=== PATIENT | female | born 1960 | race Caucasian/White ===

== ENCOUNTER → 2020-02-21 | Outpatient (CLI) | payer MEDICAID, OTHER ==
--- NOTE | 2020-02-26 02:27 | ECWPNPC ---
PATIENT NAME: LUIS CANTRELL : 1960 GENDER: FEMALE VISIT DATE: 02/21/2020 DISCHARGE DATE: 02/21/20 1541 VISIT LOCKED DATE TIME: PHYSICIAN: AMEYA HI MD RESOURCE: AMEYA HI MD REASON FOR APPOINTMENT 1. CHRONIC LEFT FOOT PAIN HISTORY OF PRESENT ILLNESS NEW PATIENT CONSULT: WHEN DID YOUR PAIN FIRST START? . BRIEFLY DESCRIBE HOW YOUR PAIN STARTED? . HOW DOES YOUR PAIN CHANGE WITH TIME? . DOES YOUR PAIN AWAKEN YOU FROM SLEEP? . HOW MANY HOURS OF SLEEP DO YOU NORMALLY GET? . ANY DIAGNOSTIC TESTING? . FACILITY WHERE TESTS WERE DONE? ____. PAIN TREATMENT TREATMENT YES CANCER HAVE YOU EVER HAD ANY TYPE OF CANCER?NO NO. 59 YEAR OLD FEMALE PATIENT WITH A HISTORY OF CHRONIC LEFT FOOT PAIN. THE PATIENT DESCRIBES THE PAIN ACHING, STABBING, SHOOTING, AND NIGHTLY WITH A PAIN SCORE OF 6-9/10 DEPENDING ON PHYSICAL ACTIVITY. THE PATIENT STATES SHE HAS BEEN SUFFERING FROM HER PAIN FOR MANY YEARS AND HAS HAD 2 LEFT FOOT SURGERIES DONE IN THE PAST, WITH THE LAST SURGERY PERFORMED IN 2015, BUT HER PAIN PERSISTS. THE PATIENT IS USING GABAPENTIN 300 MG 3 TIMES DAILY AND HYDROCODONE-ACETAMINOPHEN 5-325 MG 2 TABLETS DAILY NEEDED FOR PAIN RELIEF. THE PATIENT SAYS GABAPENTIN IS NOT HELPING WITH HER PAIN, AND SHE FEELS TWO HYDROCODONE DAILY IS NOT ENOUGH CURRENTLY. THE PATIENT SAYS SHE WAS RECEIVING A HIGHER DOSAGE OF HYDROCODONE IN [place], BEFORE SHE MOVED TO [place] AT THE END OF OCTOBER 2019. THE PATIENT DENIES ABUSE OF MEDICATION. PATIENT DENIES UNEXPLAINABLE WEIGHT LOSS, FEVER, CHILLS, NEW CHANGES ON HER URINARY OR BOWEL CONTROL. PAIN SCREENING: PATIENT HAS A COMPLAINT OF ACUTE OR CHRONIC PAIN :YES FALL RISK SCREENING: SCREENING : NO FALLS IN THE PAST YEAR. EDEN INVENTORY: QUESTIONNAIRE ASSESSEDTBD SCORE VALUE CALCULATED TBD CURRENT MEDICATIONS TAKING PEPCID 20 MG TABLET 1 TAB ORALLY TWICE DAILY TAKING HYDROCODONE-ACETAMINOPHEN 5-325 MG TABLET 1 TAB ORALLY ONCE DAILY NEEDED TAKING OXYGEN 2 L/MIN VIA NC NEEDED TAKING PROAIR HFA 108 (90 BASE) MCG/ACT AEROSOL SOLUTION 2 PUFFS NEEDED INHALATION QID PRN TAKING QUETIAPINE FUMARATE ER 400 MG TABLET EXTENDED RELEASE 24 HOUR 1 TABLET IN THE EVENING ORALLY TWICE DAILY TAKING ATORVASTATIN CALCIUM 40 MG TABLET 1 TABLET ORALLY ONCE A DAY TAKING LISINOPRIL 40 MG TABLET 1 TABLET ORALLY ONCE A DAY TAKING IBUPROFEN 800 MG TABLET 1 TABLET WITH FOOD OR MILK NEEDED ORALLY TWICE DAILY NEEDED TAKING METFORMIN HCL 500 MG TABLET 1 TABLET WITH A MEAL ORALLY TWICE DAILY TAKING AMLODIPINE BESYLATE 10 MG TABLET 1 TABLET ORALLY ONCE A DAY TAKING METOPROLOL SUCCINATE 50 MG CAPSULE ER 24 HOUR SPRINKLE 1 CAPSULE ORALLY ONCE A DAY TAKING VESICARE 10 MG TABLET 1 TABLET ORALLY ONCE A DAY TAKING CLONAZEPAM 1 MG TABLET 1/2 TABLET ORALLY BID TAKING ZOLOFT 50 MG TABLET 1 TABLET ORALLY ONCE A DAY TAKING PANTOPRAZOLE SODIUM 40 MG TABLET DELAYED RELEASE 1 TABLET ORALLY ONCE A DAY TAKING GABAPENTIN 300 MG CAPSULE 1 CAPSULE ORALLY THREE TIMES DAILY TAKING CLOBETASOL PROPIONATE 0.05 % CREAM 1 APPLICATION EXTERNALLY TWICE A DAY TAKING VITAMIN D (ERGOCALCIFEROL) 1.25 MG (51419 UT) CAPSULE 1 CAPSULE ORALLY WEEKLY MEDICATION LIST REVIEWED AND RECONCILED WITH THE PATIENT PAST MEDICAL HISTORY CHRONIC LEFT FOOT PAIN ANXIETY AND DEPRESSION HTN DIABETES COPD OVER ACTIVE BLADDER WITH STRESS INCONTINENCE SEIZURES GERD HYERLIPIDEMIA SMOKER ARTHRITIS BILATERAL KNEES BILATERAL CARPAL TUNNEL SYNDROME PNEUMONIA X 2 NICOTINE DEPENDENCE, CIAGRETTES ALLERGIES PENICILLIN (FOR ALLERGIES USE ONLY): REACTION A CHILD AND TOLD NEVER TO TAKE - ALLERGY SURGICAL HISTORY ORIF LEFT FOOT AND ANKLE 06/18/2018 HYSTERECTOMY 1984 BILATERAL CARPAL TUNNEL RELEASE CHOLECYSTECTOMY LEFT FOOT SURGERY 2016 LEFT FOOT SURGERY 2013 FAMILY HISTORY FATHER: , DOESN'T KNOW MEDICAL HISTORY MOTHER: , FROM [place], DOESN'T KNOW HER MEDICAL HISTORY SON(S): HEALTHY DAUGHTER(S): HIV 2 SON(S) , 1 DAUGHTER(S) . SOCIAL HISTORY GENERAL: TOBACCO USE ARE YOU A:CURRENT SMOKER ARE YOU INTERESTED IN QUITTING?READY TO QUIT PREVIOUS QUIT ATTEMPTS?YES, WITHIN THE LAST 6 MONTHS. COUNSELED THE PATIENT ON TOBACCO USE, CESSATION [id number]/23/2020 HOW MANY CIGARETTES A DAY DO YOU SMOKE?6-10 OTHERS AT HOME: SON, SON'S FIANCEE, 2 GRANDCHILDREN. HOUSING: STAYING IN SON'S HOUSE. WAITING FOR APARTMENT TO BECOME AVAILABLE.. EDUCATION LEVEL OF EDUCATION:NOT FINISHED HIGH SCHOOL DIET: REGULAR. LANGUAGE LANGUAGES SPOKEN:GERMAN DOMESTIC VIOLENCE DO YOU FEEL SAFE IN YOUR ENVIRONMENT?YES NEW PATIENT PAIN DIARY TODAY'S VISIT 02/21/20 FROM 0-10, WHAT LEVEL IS YOUR PAIN TODAY? 7/10 RECREATIONAL DRUG USE DRUG USE?NO EXERCISE: STATES EXERCISES DAILY AND WALKS ALSO.. LEARNING BARRIERS / SPECIAL NEEDS BARRIERS TO LEARNING?YES COMMENTS STATES IS SLOW TO COMPREHEND WRITTEN INFORMATION. HEARING IMPAIRED?NO VISION IMPAIRED?YES :CORRECTIVE LENSES COGNITIVELY IMPAIRED?NO READINESS TO LEARN?YES LEARNING PREFERENCES?YES :DEMONSTRATION/VERBAL INSTRUCTION LEARNING CAPABILITIES PRESENT?YES EMOTIONAL BARRIERS?NO SPECIAL DEVICES?YES ROLLING WALKER, PORTABLE OXYGEN 2 LMIN DURING NIGHT AND NEEDED. 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 MIX NEEDED?NO PAIN CLINIC PFS, CLERGY, PUBLIC HEALTH REFERRALS PFS REFERRAL NEEDED?NO CLERGY REFERRAL NEEDED?NO PUBLIC HEALTH REFERRAL NEEDED?NO WAS THE PROVIDER NOTIFIED OF ANY PERTINENT INFO?NO HAS THE PATIENT BEEN EDUCATED REGARDING HIS/HER PLAN OF CARE?YES HAS THE PATIENT BEEN EDUCATED REGARDING PAIN, THE RISK FOR PAIN, THE IMPORTANCE OF EFFECTIVE PAIN MANAGEMENT, AND THE PAIN ASSESSMENT PROCESS?YES LATEX QUESTIONNAIRE LATEX ALLERGY : HAVE YOU EVER DEVELOPED ANY TYPE OF REACTION AFTER HANDLING LATEX PRODUCTS SUCH RUBBER GLOVES, CONDOMS, DIAPHRAGMS, BALLOONS, SOCKS, OR UNDERWEAR?NO LATEX ALLERGY : HAVE YOU EVER DEVELOPED ANY TYPE OF REACTION DURING OR AFTER DENTAL APPOINTMENT, VAGINAL/RECTAL EXAMINATION, SURGICAL PROCEDURE, OR ANY OTHER EXPOSURE?NO LATEX RISK : HAVE YOU EVER HAD ANY DIFFICULTY BREATHING OR HIVES AFTER EATING OR HANDLING ANY FRUITS, OR VEGETABLES; SUCH KIWI, BANANAS, STONE FRUITS, OR CHESTNUTSNO LATEX RISK : DO YOU HAVE A PREVIOUS PERSONAL HISTORY OF MORE THAN NINE SURGERIES, SPINA BIFIDA, OR REPEATED CATHERIZATIONS? NO LATEX RISK : ARE YOU FREQUENTLY EXPOSED TO LATEX PRODUCTS IN YOUR OCCUPATION?NO DATE ASKED : 02/21/2020 CAFFEINE CAFFEINE USE?YES HOW OFTEN AND HOW MUCH? COFFEE 2-3 CUPS PER DAY DIET PEPSI 4 12 OX CANS PER DAY ADVANCE DIRECTIVE ADVANCE DIRECTIVE DISCUSSED WITH PATIENT:YES INFORMATION PROVIDED. ORTHODOXY [id number] SPIRITISM MARITAL STATUS: .. ALCOHOL SCREENING DID YOU HAVE A DRINK CONTAINING ALCOHOL IN THE PAST YEAR?YES HOW OFTEN DID YOU HAVE A DRINK CONTAINING ALCOHOL IN THE PAST YEAR?MONTHLY OR LESS (1 POINT) HOW MANY DRINKS DID YOU HAVE ON A TYPICAL DAY WHEN YOU WERE DRINKING IN THE PAST YEAR?1 OR 2 (0 POINTS) HOW OFTEN DID YOU HAVE SIX OR MORE DRINKS ON ONE OCCASION IN THE PAST YEAR?NEVER (0 POINTS) POINTS1 INTERPRETATIONNEGATIVE OCCUPATION: DISABLED. 01/26/2020 PRE [facility] APPOINTMENT COMPLETED. HOSPITALIZATION/MAJOR DIAGNOSTIC PROCEDURE CHILDBIRTH PNEUMONIA X 2 SURGERIES REVIEW OF SYSTEMS REVIEWED BY: PROVIDER: AMEYA HI MD . CONSTITUTIONAL: ANY CHANGE IN YOUR MEDICAL CONDITION? NO . CHILLS NO . FEVER NO . INFECTION: DO YOU HAVE NEW INFECTIONS? NO . DO YOU HAVE HISTORY OF MRSA? NO . MUSCULOSKELETAL: ANY NEW PATTERNS OF PAIN OR NUMBNESS? NO . SYTEMIC LUPUS NO . GASTROENTEROLOGY: ANY NEW CHANGE IN BOWEL CONTROL? NO . BARRETTS ESOPHAGUS NO . CIRRHOSIS NO . HEPATITIS NO . LIVER FAILURE NO . ACID REFLUX YES . UNEXPLAINED WEIGHT LOSS NO . GENITOURINARY: ANY NEW CHANGE IN BLADDER CONTROL? NO - STATES HAS WEAK BLADDER . IS THERE A CHANCE YOU COULD BE ? NO . HEMATOLOGY/LYMPH: DO YOU TAKE ANY BLOOD THINNERS? (FOR EXAMPLE- COUMADIN, PLAVIX, AGGRENOX, PLATEL, PRADAXA, OR XARELTO) NO . WHEN WAS YOUR LAST DOSE? DATE: TIME: . LOW PLATELET COUNT NO . SICKLE CELL DISEASE NO . VON WILLIEBRANDS NO . FACTOR V LEIDEN NO . THALLASEMIA NO . ANEMIA NO . EASY BRUISING NO . NEUROLOGY: HAVE YOU FALLEN IN THE PAST 12 MONTHS? NO . ANY NEW EXTREMITY NUMBNESS OR WEAKNESS? NO . HEAD INJURY NO . DEMENTIA NO . CEREBRAL PALSY NO . MULTIPLE SCLEROSIS NO . DIZZINESS NO . HEADACHE YES . STROKES NO . VERTIGO NO . CARDIOLOGY: DO YOU HAVE A PACEMAKER OR DEFIBRILLATOR? NO . ANGINA NO . HEART ATTACK NO . HEART SURGERY NO . CONGESTIVE HEART FAILURE/FLUID OVERLOAD NO . CHEST PAIN NO . HIGH BLOOD PRESSURE YES . IRREGULAR HEART BEAT NO . RESPIRATORY: HAVE YOU BEEN SICK IN THE PAST WEEK? NO . FEVER NO . FLU LIKE SYMPTOMS? NO . CPAP YES - WAITING FOR MACHINE/TESTING . BYPAP NO . ASTHMA NO . EMPHYSEMA NO . CHRONIC LUNG DISEASES NO . SHORTNESS OF BREATH ON EXERTION YES . DO YOU USE ANY TYPE OF TOBACCO (SMOKE, SMOKELESS, CHEW)? YES . COUGH NO . SNORING YES . INTEGUMENTARY: DO YOU HAVE ANY RASHES OR OPEN SORES? NO . ALLERGIC/IMMUNO: ARE YOU ALLERGIC TO IV DYE? NO . ANY NEW ALLERGIES? NO . PSYCHIATRIC: DO YOU HAVE THOUGHTS OF HURTING YOURSELF OR SOMEONE ELSE? NO . ARE YOU ABUSED, NEGLECTED, OR IN AN UNSAFE ENVIRONMENT? NO . ENDOCRINOLOGY: ARE YOU DIABETIC? BORDERLINE . THYROID DISORDER NO . OTHER: DO YOU NEED ANY PRESCRIPTIONS? NO . IF YES, PLEASE LIST: ____ . ANY NEW PROBLEMS WITH YOUR MEDICATIONS? NO . WHEN DID YOU LAST EAT? ____ . WHEN DID YOU LAST DRINK? ____ . WHAT DID YOU LAST DRINK? ____ . NAME OF PERSON DRIVING YOU HOME? ____ . DO YOU HAVE ANY OTHER QUESTIONS OR CONCERNS NO . VITAL SIGNS WT 270.8 LBS, HT 72 IN, BMI 36.72 INDEX, BP 149/68 MM HG, HR 77 /MIN, RR 20 /MIN, TEMP 97.1 F, OXYGEN SAT % 94%, NA INITIALS AW 1312, REVIEWED BY: LS. EXAMINATION GENERAL EXAMINATION: PATIENT IS ALERT O X 3 AND COOPERATIVE. LUNGS CLEAR, TO AUSCULTATION. HEART: NO MURMURS OR GALLOPS; FACIAL CRANIAL NERVES ARE GROSSLY NORMAL. GOOD SYMMETRY OF FACIAL MUSCLE MOVEMENT. NORMAL VISUAL PEREIRA. ANTALGIC WALK. PATIENT USES A WALKER, OTHERWISE SHE LOSES HER BALANCE. HYPERPATHIA TO LEFT ANKLE AND TENDERNESS OVER LEFT FOOT. VERY DRY FOOT WITH TROPHIC CHANGES. PAIN DIARY AND NOTES FROM [facility] IS PRESENT IN PATIENT'S CHART. 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 CANTRELL'S PAIN MANAGEMENT CASE. I WILL REQUEST FOR A DOCTOR TO DOCTOR NARCOTIC AGREEMENT FROM THE PATIENT'S PRIMARY CARE PROVIDER TO PRESCRIBE MEDICATION FOR THE PATIENT IN THE FUTURE. I WILL ALSO LIKE TO DISCUSS THE PATIENT CASE WITH HER PROVIDER IN [place]. THE PATIENT STATES SHE WAS RECEIVING PAIN MEDICATION AND CARE BY DR. SANDI RODRIGUEZ AT [address] [place] [address]. PHONE NUMBER [phone] AND FAX [phone]. THE PATIENT SAYS HER FOOT DOCTOR WAS ALSO IN [place] AND CAN BE REACHED AT [phone]. THE PATIENT WILL FOLLOW UP WITH ME ON MARCH 10. INSTRUCTIONS WERE GIVEN, QUESTIONS WERE ANSWERED, PATIENT REPORTS UNDERSTANDING AND AGREES WITH THE PLAN. I, LAUREN HUANG, DOCUMENTED THE ABOVE INFORMATION ACTING A SCRIBE FOR DR. HI. I HAVE REVIEWED THE ABOVE DOCUMENT, WRITTEN BY LAUREN WALTER AND I VERIFY THAT IT IS ACCURATE. DEAR LISETTE SIMENTAL PA-C: THANK YOU FOR YOUR KIND REFERRAL OF LUIS CANTRELL. IF YOU WANT TO DISCUSS HER CASE WITH ME PLEASE CALL ME AT THE PAIN CENTER AT [phone]. SINCERELY, AMEYA HI MD PAIN MEDICINE . PROCEDURE CODES FA211 ESTABILISHED PATIENT [facility] CHARGE [id number] CURRENT MEDS W/DOSAGES DOCUMENTED G8730 PAIN ASSESS POS TOOL F/U PLAN DOC DISPOSITION & COMMUNICATION FOLLOW UP 3 WEEKS (REASON: RQSTING DR-TO-DR AGREE TO PCP; F/UP WITH DR Arita) ELECTRONICALLY SIGNED BY AMEYA HI MD, MD ON 02/25/2020 AT 04:45 PM EDT DISCLAIMER : THIS IS A VISIT SUMMARY EXTRACTED FROM THE [employer] CHART. IT IS NOT A COPY OF THE [employer] PROGRESS NOTE. ISABELD
== END ==
LOC: M PAIN 14:15
PROVIDERS: ATTEND Anesthesiology
DX: M79.672 Pain in left foot (principal); M79.2 Neuralgia and neuritis, unspecified; E11.9 Type 2 diabetes mellitus without complications; I10 Essential (primary) hypertension; F17.210 Nicotine dependence, cigarettes, uncomplicated; Z79.84 Long term (current) use of oral hypoglycemic drugs; Z79.891 Long term (current) use of opiate analgesic; Z79.899 Other long term (current) drug therapy; Z88.0 Allergy status to penicillin; Z98.890 Other specified postprocedural states

== ENCOUNTER → 2020-03-10 | Outpatient (CLI) | payer MEDICAID, OTHER ==
--- NOTE | 2020-03-21 03:58 | ECWPNPC ---
PATIENT NAME: LUIS CANTRELL : 1960 GENDER: FEMALE VISIT DATE: 03/10/2020 DISCHARGE DATE: 03/10/20 1000 VISIT LOCKED DATE TIME: PHYSICIAN: AMEYA HI MD RESOURCE: AMEYA HI MD REASON FOR APPOINTMENT 1. LEFT FOOT PAIN HISTORY OF PRESENT ILLNESS HISTORY OF PRESENT ILLNESS: PAIN THE PATIENT DESCRIBES THE PAIN... PERMISSION FROM PATIENT WAS RECEIVED TO DO TELEMEDICINE OFFICE VISIT VIA ZOOM. 59-YEAR-OLD FEMALE PATIENT WITH A HISTORY OF CHRONIC LEFT FOOT PAIN. THE PATIENT DESCRIBES THE PAIN THROBBING, SHOOTING AND COMES AND GOES WITH A PAIN SCORE RANGING FROM 7-9/10 DEPENDING ON PHYSICAL ACTIVITY. THE PATIENT HAS HAD SEVERAL SURGERIES IN THE PAST. THE PATIENT STATES THAT SHE NEEDS A HIGH DOSE OF THE HYDROCODONE TO HELP CONTROL HER PAIN. PATIENT DENIES UNEXPLAINABLE WEIGHT LOSS, FEVER, CHILLS, NEW CHANGES ON HER URINARY OR BOWEL CONTROL. FALL RISK SCREENING: SCREENING :NO FALLS REPORTED IN THE LAST YEAR CURRENT MEDICATIONS TAKING HYDROCODONE-ACETAMINOPHEN 5-325 MG TABLET 1 TAB ORALLY ONCE DAILY NEEDED TAKING OXYGEN 2 L/MIN VIA NC NEEDED TAKING PROAIR HFA 108 (90 BASE) MCG/ACT AEROSOL SOLUTION 2 PUFFS NEEDED INHALATION QID PRN TAKING QUETIAPINE FUMARATE ER 400 MG TABLET EXTENDED RELEASE 24 HOUR 1 TABLET IN THE EVENING ORALLY TWICE DAILY TAKING ATORVASTATIN CALCIUM 40 MG TABLET 1 TABLET ORALLY ONCE A DAY TAKING LISINOPRIL 40 MG TABLET 1 TABLET ORALLY ONCE A DAY TAKING IBUPROFEN 800 MG TABLET 1 TABLET WITH FOOD OR MILK NEEDED ORALLY TWICE DAILY NEEDED TAKING METFORMIN HCL 500 MG TABLET 1 TABLET WITH A MEAL ORALLY TWICE DAILY TAKING AMLODIPINE BESYLATE 10 MG TABLET 1 TABLET ORALLY ONCE A DAY TAKING METOPROLOL SUCCINATE 50 MG CAPSULE ER 24 HOUR SPRINKLE 1 CAPSULE ORALLY ONCE A DAY TAKING CLONAZEPAM 1 MG TABLET 1/2 TABLET ORALLY BID TAKING ZOLOFT 50 MG TABLET 1 TABLET ORALLY ONCE A DAY TAKING PANTOPRAZOLE SODIUM 40 MG TABLET DELAYED RELEASE 1 TABLET ORALLY ONCE A DAY TAKING GABAPENTIN 300 MG CAPSULE 1 CAPSULE ORALLY THREE TIMES DAILY TAKING CLOBETASOL PROPIONATE 0.05 % CREAM 1 APPLICATION EXTERNALLY TWICE A DAY TAKING VITAMIN D (ERGOCALCIFEROL) 1.25 MG (52337 UT) CAPSULE 1 CAPSULE ORALLY WEEKLY TAKING FLONASE ALLERGY RELIEF 50 MCG/ACT SUSPENSION 1 SPRAY IN EACH NOSTRIL NASALLY ONCE A DAY NOT-TAKING PEPCID 20 MG TABLET 1 TAB ORALLY TWICE DAILY NOT-TAKING VESICARE 10 MG TABLET 1 TABLET ORALLY ONCE A DAY MEDICATION LIST REVIEWED AND RECONCILED WITH THE PATIENT PAST MEDICAL HISTORY CHRONIC LEFT FOOT PAIN ANXIETY AND DEPRESSION HTN DIABETES COPD OVER ACTIVE BLADDER WITH STRESS INCONTINENCE SEIZURES GERD HYERLIPIDEMIA SMOKER ARTHRITIS BILATERAL KNEES BILATERAL CARPAL TUNNEL SYNDROME PNEUMONIA X 2 NICOTINE DEPENDENCE, CIAGRETTES ALLERGIES PENICILLIN (FOR ALLERGIES USE ONLY): REACTION A CHILD AND TOLD NEVER TO TAKE - ALLERGY SURGICAL HISTORY ORIF LEFT FOOT AND ANKLE 06/18/2018 HYSTERECTOMY 1984 BILATERAL CARPAL TUNNEL RELEASE CHOLECYSTECTOMY LEFT FOOT SURGERY 2016 LEFT FOOT SURGERY 2014 FAMILY HISTORY FATHER: , DOESN'T KNOW MEDICAL HISTORY MOTHER: , FROM [place], DOESN'T KNOW HER MEDICAL HISTORY SON(S): HEALTHY DAUGHTER(S): HIV 2 SON(S) , 1 DAUGHTER(S) . SOCIAL HISTORY GENERAL: TOBACCO USE ARE YOU A:CURRENT SMOKER ARE YOU INTERESTED IN QUITTING?READY TO QUIT PREVIOUS QUIT ATTEMPTS?YES, WITHIN THE LAST 6 MONTHS. COUNSELED THE PATIENT ON TOBACCO USE, CESSATION [id number]/10/2020 HOW MANY CIGARETTES A DAY DO YOU SMOKE?6-10 LATEX QUESTIONNAIRE LATEX ALLERGY : HAVE YOU EVER DEVELOPED ANY TYPE OF REACTION AFTER HANDLING LATEX PRODUCTS SUCH RUBBER GLOVES, CONDOMS, DIAPHRAGMS, BALLOONS, SOCKS, OR UNDERWEAR?NO LATEX ALLERGY : HAVE YOU EVER DEVELOPED ANY TYPE OF REACTION DURING OR AFTER DENTAL APPOINTMENT, VAGINAL/RECTAL EXAMINATION, SURGICAL PROCEDURE, OR ANY OTHER EXPOSURE?NO DATE ASKED : 02/21/2020 LATEX RISK : HAVE YOU EVER HAD ANY DIFFICULTY BREATHING OR HIVES AFTER EATING OR HANDLING ANY FRUITS, OR VEGETABLES; SUCH KIWI, BANANAS, STONE FRUITS, OR CHESTNUTSNO LATEX RISK : DO YOU HAVE A PREVIOUS PERSONAL HISTORY OF MORE THAN NINE SURGERIES, SPINA BIFIDA, OR REPEATED CATHERIZATIONS? NO LATEX RISK : ARE YOU FREQUENTLY EXPOSED TO LATEX PRODUCTS IN YOUR OCCUPATION?NO ALCOHOL SCREENING DID YOU HAVE A DRINK CONTAINING ALCOHOL IN THE PAST YEAR?YES HOW OFTEN DID YOU HAVE SIX OR MORE DRINKS ON ONE OCCASION IN THE PAST YEAR?NEVER (0 POINTS) HOW MANY DRINKS DID YOU HAVE ON A TYPICAL DAY WHEN YOU WERE DRINKING IN THE PAST YEAR?1 OR 2 (0 POINTS) HOW OFTEN DID YOU HAVE A DRINK CONTAINING ALCOHOL IN THE PAST YEAR?MONTHLY OR LESS (1 POINT) POINTS1 INTERPRETATIONNEGATIVE RECREATIONAL DRUG USE DRUG USE?NO CAFFEINE CAFFEINE USE?YES HOW OFTEN AND HOW MUCH? COFFEE 2-3 CUPS PER DAY DIET PEPSI 4 12 OX CANS PER DAY CATH[employer] [id number] [employer] LANGUAGES SPOKEN:CAMBODIAN EDUCATION LEVEL OF EDUCATION:NOT FINISHED HIGH SCHOOL LEARNING BARRIERS / SPECIAL NEEDS BARRIERS TO LEARNING?YES COMMENTS STATES IS SLOW TO COMPREHEND WRITTEN INFORMATION. HEARING IMPAIRED?NO VISION IMPAIRED?YES COGNITIVELY IMPAIRED?NO :CORRECTIVE LENSES READINESS TO LEARN?YES LEARNING PREFERENCES?YES :DEMONSTRATION/VERBAL INSTRUCTION LEARNING CAPABILITIES PRESENT?YES EMOTIONAL BARRIERS?NO SPECIAL DEVICES?YES ROLLING WALKER, PORTABLE OXYGEN 2 LMIN DURING NIGHT AND NEEDED. PHYTOPATHOLOGIST NEEDED?NO DOMESTIC VIOLENCE DO YOU FEEL SAFE IN YOUR ENVIRONMENT?YES OCCUPATION: DISABLED. DIET: REGULAR. EXERCISE: STATES EXERCISES DAILY AND WALKS ALSO.. MARITAL STATUS: .. OTHERS AT HOME: SON, SON'S RAIMUNDOE, 2 GRANDCHILDREN. NEW PATIENT PAIN DIARY TODAY'S VISIT 02/21/20 PATIENT DESCRIBES PAIN :IT COMES AND GOES, THROBBING, SHOOTING FROM 0-10, WHAT LEVEL IS YOUR PAIN TODAY?7 06/09 PRECIPITATING FACTORS LACK OF MEDS ALLEVIATING FACTORS MEDS IMPACT ON FUNCTION YES PAIN CLINIC PFS, CLERGY, PUBLIC HEALTH REFERRALS PFS REFERRAL NEEDED?NO CLERGY REFERRAL NEEDED?NO PUBLIC HEALTH REFERRAL NEEDED?NO WAS THE PROVIDER NOTIFIED OF ANY PERTINENT INFO?NO HAS THE PATIENT BEEN EDUCATED REGARDING HIS/HER PLAN OF CARE?YES HAS THE PATIENT BEEN EDUCATED REGARDING PAIN, THE RISK FOR PAIN, THE IMPORTANCE OF EFFECTIVE PAIN MANAGEMENT, AND THE PAIN ASSESSMENT PROCESS?YES HOUSING: STAYING IN SON'S HOUSE. WAITING FOR APARTMENT TO BECOME AVAILABLE.. ADVANCE DIRECTIVE ADVANCE DIRECTIVE DISCUSSED WITH PATIENT:YES DECLINED 01/26/2020 PRE NPC APPOINTMENT COMPLETED. HOSPITALIZATION/MAJOR DIAGNOSTIC PROCEDURE CHILDBIRTH PNEUMONIA X 2 SURGERIES REVIEW OF SYSTEMS REVIEWED BY: PROVIDER: AMEYA HI MD . CONSTITUTIONAL: ANY CHANGE IN YOUR MEDICAL CONDITION? NO . CHILLS NO . FEVER NO . INFECTION: DO YOU HAVE NEW INFECTIONS? NO . DO YOU HAVE HISTORY OF MRSA? NO . MUSCULOSKELETAL: ANY NEW PATTERNS OF PAIN OR NUMBNESS? NO . GASTROENTEROLOGY: ANY NEW CHANGE IN BOWEL CONTROL? NO . GENITOURINARY: ANY NEW CHANGE IN BLADDER CONTROL? NO . IS THERE A CHANCE YOU COULD BE ? NO . HEMATOLOGY/LYMPH: DO YOU TAKE ANY BLOOD THINNERS? (FOR EXAMPLE- COUMADIN, PLAVIX, AGGRENOX, PLATEL, PRADAXA, OR XARELTO) NO . WHEN WAS YOUR LAST DOSE? DATE: TIME: . NEUROLOGY: HAVE YOU FALLEN IN THE PAST 12 MONTHS? YES, PRIOR TO LAST VISIT . ANY NEW EXTREMITY NUMBNESS OR WEAKNESS? NO . CARDIOLOGY: DO YOU HAVE A PACEMAKER OR DEFIBRILLATOR? NO . RESPIRATORY: HAVE YOU BEEN SICK IN THE PAST WEEK? NO . FEVER NO . FLU LIKE SYMPTOMS? NO . COUGH NO . INTEGUMENTARY: DO YOU HAVE ANY RASHES OR OPEN SORES? NO . ALLERGIC/IMMUNO: ARE YOU ALLERGIC TO IV DYE? NO . ANY NEW ALLERGIES? NO . PSYCHIATRIC: DO YOU HAVE THOUGHTS OF HURTING YOURSELF OR SOMEONE ELSE? NO . ARE YOU ABUSED, NEGLECTED, OR IN AN UNSAFE ENVIRONMENT? YES, TRYING TO GET OUT OF IT, GETTING HOUSING SECURED THROUGH HUD . ENDOCRINOLOGY: ARE YOU DIABETIC? YES . OTHER: IF YES, PLEASE LIST: PCP PRESCRIBED NORCO, BUT WILL NOT PRESCRIBE ANYMORE, PAIN MNGT NEEDS TO PRESCRIBE . ANY NEW PROBLEMS WITH YOUR MEDICATIONS? NO . WHEN DID YOU LAST EAT? ____ . WHEN DID YOU LAST DRINK? ____ . WHAT DID YOU LAST DRINK? ____ . NAME OF PERSON DRIVING YOU HOME? ____ . DO YOU HAVE ANY OTHER QUESTIONS OR CONCERNS NO . EXAMINATION GENERAL EXAMINATION: TELEMEDICINE VISIT. PATIENT IS ALERT, ORIENTED TIMES 3 AND COOPERATIVE. ASSESSMENTS PAIN IN LEFT FOOT - M79.672 (PRIMARY) NEURALGIA AND NEURITIS, UNSPECIFIED - M79.2 OTHER SPECIFIED POSTPROCEDURAL STATES - Z98.890 TREATMENT PAIN IN LEFT FOOT CLINICAL NOTES: WE DISCUSSED SEVERAL ALTERNATIVES WITH MS. CANTRELL REGARDING HER TREATMENT OPTIONS AND CARE. IT WAS DISCUSSED WITH THE PATIENT THE RISK ASSOCIATED WITH USING NARCOTICS, WHICH INCLUDE RESPIRATORY DEPRESSION, CARDIAC EFFECTS, DEPENDENCE, DIZZINESS, LACK OF CONCENTRATION AND . IT WAS EXPLAINED TO THE PATIENT THAT THESE MEDICATIONS ARE HIGHLY ADDICTIVE. THEY HAVE TO KEEP IT IN A SAFE PLACE. THE PATIENT SHOULD NOT DISCUSS THE USE OF THIS MEDICATION WITH ANY RELATIVE OR FRIEND, DUE TO THE RISK OF IT GETTING STOLEN. THIS MEDICATION SHOULD NOT BE IN THE REACH OF CHILDREN. TEENAGERS ARE MORE INCLINED TO MISUSE THIS MEDICATION FOR RECREATION. IF THIS MEDICATION IS LOST OR STOLEN, WE WILL NOT REFILL THEM. THEY SHOULD NOT BE USED WITH BENZODIAZEPINES. THE PATIENT SHOULD NOT DRIVE WHILE ON THIS MEDICATION. THE PATIENT DENIES THE USE OF ANY ILLEGAL SUBSTANCES INCLUDING MARIJUANA OR COCAINE. THE PATIENT IS AWARE OF THESE RISKS AND AGREES. I WROTE THE PATIENT A PRESCRIPTION FOR HYDROCODONE 7.5/325 MG B.I.D. I DON'T HAVE A DOCTOR TO DOCTOR AGREEMENT, HOWEVER, DUE TO THE CURRENT [place] VIRUS SITUATION, I WILL PRESCRIBE THE MEDICATIONS FOR HER. THIS WILL ONLY BE TEMPORARY AND THE PATIENT IS AWARE THAT SHE WILL NEED TO PERFORM A UTOX AND PILL COUNTING WHEN SHE IS ABLE TO. I REVIEWED THE PATIENT'S ISTOP, REFERENCE NUMBER [id number]. THE PATIENT WILL FOLLOWUP WITH ME IN 3 WEEKS VIA TELEMEDICINE. THE PATIENT KNOWS TO CALL THE OFFICE IF SHE HAS ANY QUESTIONS OR CONCERNS. THE PATIENT UNDERSTANDS AND IS IN AGREEMENT WITH THE TREATMENT PLAN. I, ONOFRE SELLERS, DOCUMENTED THE ABOVE INFORMATION ACTING A SCRIBE FOR DR. HI. I HAVE REVIEWED THE ABOVE DOCUMENT, WRITTEN BY ONOFRE SELLERS, ROLL CUTTING OPERATOR, AND I VERIFY THAT IT IS ACCURATE. . OTHERS CONTINUE HYDROCODONE-ACETAMINOPHEN TABLET, 7.5-325 MG, 1 TAB, ORALLY FOR PAIN, EVERY 12 HOURS NEEDED MDD2, 30 DAYS, 60, REFILLS 0 DISPOSITION & COMMUNICATION FOLLOW UP F/UP DR. Arita VIA TELEMEDICINE IN 3 WKS (REASON: LEFT FOOT PAIN) ELECTRONICALLY SIGNED BY AMEYA HI MD, MD ON 03/20/2020 AT 04:56 PM EDT DISCLAIMER : THIS IS A VISIT SUMMARY EXTRACTED FROM THE [employer] CHART. IT IS NOT A COPY OF THE [employer] PROGRESS NOTE. DA
== END ==
LOC: M PAIN 11:30 → M TMPAIN 11:30
PROVIDERS: ATTEND Anesthesiology
DX: M79.672 Pain in left foot (principal); M79.2 Neuralgia and neuritis, unspecified; Z98.890 Other specified postprocedural states; I10 Essential (primary) hypertension; E11.9 Type 2 diabetes mellitus without complications; F17.210 Nicotine dependence, cigarettes, uncomplicated; Z79.891 Long term (current) use of opiate analgesic; Z79.899 Other long term (current) drug therapy; Z88.0 Allergy status to penicillin

== ENCOUNTER → 2020-04-04 | Outpatient (CLI) | payer MEDICAID, OTHER ==
[~2020-04-04] MED LIST: AFRI0.058; FLON27.5 NARES; PRED50TA PO
--- NOTE | 2020-04-06 01:20 | ECWPNPC ---
PATIENT NAME: LUIS CANTRELL : 1960 GENDER: FEMALE VISIT DATE: 04/04/2020 DISCHARGE DATE: 04/04/20 1537 VISIT LOCKED DATE TIME: PHYSICIAN: AMEYA HI MD RESOURCE: AMEYA HI MD REASON FOR APPOINTMENT 1. LEFT FOOT PAIN [phone] HISTORY OF PRESENT ILLNESS HISTORY OF PRESENT ILLNESS: PAIN THE PATIENT DESCRIBES THE PAIN... 60 YEAR OLD FEMALE PATIENT WITH A HISTORY OF CHRONIC FOOT PAIN. THE PATIENT DESCRIBES HER PAIN INTERMITTENT, THROBBING, SHOOTING WITH A PAIN SCORE OF 4-7/10 DEPENDING ON PHYSICAL ACTIVITY. THE PATIENT STATES SINCE STARTING TWO TABLETS DAILY OF HYDROCODONE-ACETAMINOPHEN TABLET 7.5-325 MG HAS BEEN GREATLY HELPING WITH HER PAIN. THE PATIENT SAYS SHE IS VERY HAPPY WITH THE OUTCOME SINCE STARTING THE MEDICATION HERE, AND THAT SHE WAS PREVIOUSLY RECEIVING FROM HER PROVIDER IN [place]. THE PATIENT DENIES UNEXPLAINED WEIGHT LOSS, FEVER, CHILLS, NEW CHANGES IN HER URINARY OR BOWEL CONTROL. FALL RISK SCREENING: SCREENING :NO FALLS REPORTED IN THE LAST YEAR CURRENT MEDICATIONS TAKING OXYGEN 2 L/MIN VIA NC NEEDED TAKING PROAIR HFA 108 (90 BASE) MCG/ACT AEROSOL SOLUTION 2 PUFFS NEEDED INHALATION QID PRN TAKING QUETIAPINE FUMARATE ER 400 MG TABLET EXTENDED RELEASE 24 HOUR 1 TABLET IN THE EVENING ORALLY TWICE DAILY TAKING ATORVASTATIN CALCIUM 40 MG TABLET 1 TABLET ORALLY ONCE A DAY TAKING LISINOPRIL 40 MG TABLET 1 TABLET ORALLY ONCE A DAY TAKING IBUPROFEN 800 MG TABLET 1 TABLET WITH FOOD OR MILK NEEDED ORALLY TWICE DAILY NEEDED TAKING METFORMIN HCL 500 MG TABLET 1 TABLET WITH A MEAL ORALLY TWICE DAILY TAKING AMLODIPINE BESYLATE 10 MG TABLET 1 TABLET ORALLY ONCE A DAY TAKING METOPROLOL SUCCINATE 50 MG CAPSULE ER 24 HOUR SPRINKLE 1 CAPSULE ORALLY ONCE A DAY TAKING CLONAZEPAM 1 MG TABLET 1/2 TABLET ORALLY BID TAKING ZOLOFT 50 MG TABLET 1 TABLET ORALLY ONCE A DAY TAKING PANTOPRAZOLE SODIUM 40 MG TABLET DELAYED RELEASE 1 TABLET ORALLY ONCE A DAY TAKING GABAPENTIN 300 MG CAPSULE 1 CAPSULE ORALLY THREE TIMES DAILY TAKING CLOBETASOL PROPIONATE 0.05 % CREAM 1 APPLICATION EXTERNALLY TWICE A DAY TAKING VITAMIN D (ERGOCALCIFEROL) 1.25 MG (60488 UT) CAPSULE 1 CAPSULE ORALLY WEEKLY TAKING FLONASE ALLERGY RELIEF 50 MCG/ACT SUSPENSION 1 SPRAY IN EACH NOSTRIL NASALLY ONCE A DAY TAKING HYDROCODONE-ACETAMINOPHEN 7.5-325 MG TABLET 1 TAB ORALLY FOR PAIN EVERY 12 HOURS NEEDED MDD2 NOT-TAKING PEPCID 20 MG TABLET 1 TAB ORALLY TWICE DAILY NOT-TAKING VESICARE 10 MG TABLET 1 TABLET ORALLY ONCE A DAY MEDICATION LIST REVIEWED AND RECONCILED WITH THE PATIENT PAST MEDICAL HISTORY CHRONIC LEFT FOOT PAIN ANXIETY AND DEPRESSION HTN DIABETES COPD OVER ACTIVE BLADDER WITH STRESS INCONTINENCE SEIZURES GERD HYERLIPIDEMIA SMOKER ARTHRITIS BILATERAL KNEES BILATERAL CARPAL TUNNEL SYNDROME PNEUMONIA X 2 NICOTINE DEPENDENCE, CIAGRETTES ALLERGIES PENICILLIN (FOR ALLERGIES USE ONLY): REACTION A CHILD AND TOLD NEVER TO TAKE - ALLERGY SURGICAL HISTORY ORIF LEFT FOOT AND ANKLE 06/18/2018 HYSTERECTOMY 1984 BILATERAL CARPAL TUNNEL RELEASE CHOLECYSTECTOMY LEFT FOOT SURGERY 2016 LEFT FOOT SURGERY 2014 FAMILY HISTORY FATHER: , DOESN'T KNOW MEDICAL HISTORY MOTHER: , FROM [place], DOESN'T KNOW HER MEDICAL HISTORY SON(S): HEALTHY DAUGHTER(S): HIV 2 SON(S) , 1 DAUGHTER(S) . SOCIAL HISTORY GENERAL: TOBACCO USE ARE YOU A:CURRENT SMOKER ARE YOU INTERESTED IN QUITTING?READY TO QUIT PREVIOUS QUIT ATTEMPTS?YES, WITHIN THE LAST 6 MONTHS. COUNSELED THE PATIENT ON TOBACCO USE, CESSATION [id number]/05/2020 HOW MANY CIGARETTES A DAY DO YOU SMOKE?6-10 LATEX QUESTIONNAIRE LATEX ALLERGY : HAVE YOU EVER DEVELOPED ANY TYPE OF REACTION AFTER HANDLING LATEX PRODUCTS SUCH RUBBER GLOVES, CONDOMS, DIAPHRAGMS, BALLOONS, SOCKS, OR UNDERWEAR?NO LATEX ALLERGY : HAVE YOU EVER DEVELOPED ANY TYPE OF REACTION DURING OR AFTER DENTAL APPOINTMENT, VAGINAL/RECTAL EXAMINATION, SURGICAL PROCEDURE, OR ANY OTHER EXPOSURE?NO DATE ASKED : 02/21/2020 LATEX RISK : HAVE YOU EVER HAD ANY DIFFICULTY BREATHING OR HIVES AFTER EATING OR HANDLING ANY FRUITS, OR VEGETABLES; SUCH KIWI, BANANAS, STONE FRUITS, OR CHESTNUTSNO LATEX RISK : DO YOU HAVE A PREVIOUS PERSONAL HISTORY OF MORE THAN NINE SURGERIES, SPINA BIFIDA, OR REPEATED CATHERIZATIONS? NO LATEX RISK : ARE YOU FREQUENTLY EXPOSED TO LATEX PRODUCTS IN YOUR OCCUPATION?NO ALCOHOL SCREENING DID YOU HAVE A DRINK CONTAINING ALCOHOL IN THE PAST YEAR?YES HOW OFTEN DID YOU HAVE SIX OR MORE DRINKS ON ONE OCCASION IN THE PAST YEAR?NEVER (0 POINTS) HOW MANY DRINKS DID YOU HAVE ON A TYPICAL DAY WHEN YOU WERE DRINKING IN THE PAST YEAR?1 OR 2 (0 POINTS) HOW OFTEN DID YOU HAVE A DRINK CONTAINING ALCOHOL IN THE PAST YEAR?MONTHLY OR LESS (1 POINT) POINTS1 INTERPRETATIONNEGATIVE RECREATIONAL DRUG USE DRUG USE?NO CAFFEINE CAFFEINE USE?YES HOW OFTEN AND HOW MUCH? COFFEE 2-3 CUPS PER DAY DIET PEPSI 4 12 OX CANS PER DAY CONGREGATION [id number] [employer] L[employer]AGE LANGUAGES SPOKEN:BENGALI EDUCATION LEVEL OF EDUCATION:NOT FINISHED HIGH SCHOOL LEARNING BARRIERS / SPECIAL NEEDS BARRIERS TO LEARNING?YES COMMENTS STATES IS SLOW TO COMPREHEND WRITTEN INFORMATION. HEARING IMPAIRED?NO VISION IMPAIRED?YES COGNITIVELY IMPAIRED?NO :CORRECTIVE LENSES READINESS TO LEARN?YES LEARNING PREFERENCES?YES :DEMONSTRATION/VERBAL INSTRUCTION LEARNING CAPABILITIES PRESENT?YES EMOTIONAL BARRIERS?NO SPECIAL DEVICES?YES ROLLING WALKER, PORTABLE OXYGEN 2 LMIN DURING NIGHT AND NEEDED. JORDAN MAN NEEDED?NO DOMESTIC VIOLENCE DO YOU FEEL SAFE IN YOUR ENVIRONMENT?YES OCCUPATION: DISABLED. DIET: REGULAR. EXERCISE: STATES EXERCISES DAILY AND WALKS ALSO.. MARITAL STATUS: .. OTHERS AT HOME: SON, SON'S FIANCEE, 2 GRANDCHILDREN. NEW PATIENT PAIN DIARY TODAY'S VISIT 04/04/20 PATIENT DESCRIBES PAIN :IT COMES AND GOES, THROBBING, SHOOTING FROM 0-10, WHAT LEVEL IS YOUR PAIN TODAY?6 PRECIPITATING FACTORS LACK OF MEDS ALLEVIATING FACTORS MEDS IMPACT ON FUNCTION YES PAIN CLINIC PFS, CLERGY, PUBLIC HEALTH REFERRALS PFS REFERRAL NEEDED?NO CLERGY REFERRAL NEEDED?NO PUBLIC HEALTH REFERRAL NEEDED?NO WAS THE PROVIDER NOTIFIED OF ANY PERTINENT INFO?NO HAS THE PATIENT BEEN EDUCATED REGARDING HIS/HER PLAN OF CARE?YES HAS THE PATIENT BEEN EDUCATED REGARDING PAIN, THE RISK FOR PAIN, THE IMPORTANCE OF EFFECTIVE PAIN MANAGEMENT, AND THE PAIN ASSESSMENT PROCESS?YES HOUSING: STAYING IN SON'S HOUSE. WAITING FOR APARTMENT TO BECOME AVAILABLE.. ADVANCE DIRECTIVE ADVANCE DIRECTIVE DISCUSSED WITH PATIENT:YES DECLINED 01/26/2020 PRE NPC APPOINTMENT COMPLETED. HOSPITALIZATION/MAJOR DIAGNOSTIC PROCEDURE CHILDBIRTH PNEUMONIA X 2 SURGERIES REVIEW OF SYSTEMS REVIEWED BY: PROVIDER: AMEYA HI MD . CONSTITUTIONAL: ANY CHANGE IN YOUR MEDICAL CONDITION? NO . CHILLS NO . FEVER NO . INFECTION: DO YOU HAVE NEW INFECTIONS? NO . DO YOU HAVE HISTORY OF MRSA? NO . MUSCULOSKELETAL: ANY NEW PATTERNS OF PAIN OR NUMBNESS? NO . GASTROENTEROLOGY: ANY NEW CHANGE IN BOWEL CONTROL? NO . GENITOURINARY: ANY NEW CHANGE IN BLADDER CONTROL? NO . IS THERE A CHANCE YOU COULD BE ? NO . HEMATOLOGY/LYMPH: DO YOU TAKE ANY BLOOD THINNERS? (FOR EXAMPLE- COUMADIN, PLAVIX, AGGRENOX, PLATEL, PRADAXA, OR XARELTO) NO . WHEN WAS YOUR LAST DOSE? DATE: TIME: . NEUROLOGY: HAVE YOU FALLEN IN THE PAST 12 MONTHS? YES, PRIOR TO LAST VISIT . ANY NEW EXTREMITY NUMBNESS OR WEAKNESS? NO . CARDIOLOGY: DO YOU HAVE A PACEMAKER OR DEFIBRILLATOR? NO . RESPIRATORY: HAVE YOU BEEN SICK IN THE PAST WEEK? NO . FEVER NO . FLU LIKE SYMPTOMS? NO . COUGH NO . INTEGUMENTARY: DO YOU HAVE ANY RASHES OR OPEN SORES? NO . ALLERGIC/IMMUNO: ARE YOU ALLERGIC TO IV DYE? NO . ANY NEW ALLERGIES? NO . PSYCHIATRIC: DO YOU HAVE THOUGHTS OF HURTING YOURSELF OR SOMEONE ELSE? NO . ARE YOU ABUSED, NEGLECTED, OR IN AN UNSAFE ENVIRONMENT? NO . ENDOCRINOLOGY: ARE YOU DIABETIC? YES . OTHER: DO YOU NEED ANY PRESCRIPTIONS? YES, KLONOPIN, NORCO . IF YES, PLEASE LIST: ____ . ANY NEW PROBLEMS WITH YOUR MEDICATIONS? NO . WHEN DID YOU LAST EAT? ____ . WHEN DID YOU LAST DRINK? ____ . WHAT DID YOU LAST DRINK? ____ . NAME OF PERSON DRIVING YOU HOME? ____ . DO YOU HAVE ANY OTHER QUESTIONS OR CONCERNS NO . EXAMINATION GENERAL EXAMINATION: TELEMEDICINE USING ZOOM APPLICATION. PATIENT IS ALERT O X 3 AND COOPERATIVE. 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 CANTRELL'S PAIN MANAGEMENT CASE. THE PATIENT WILL CONTINUE WITH HYDROCODONE-ACETAMINOPHEN TABLET, 7.5-325 MG, WHICH I REFILLED FOR HER AT TODAY'S VISIT. ISTOP # [id number] WAS REVIEWED. I DISCUSSED THE RISKS ASSOCIATED WITH THE USE OF OPIOIDS INCLUDING THE POSSIBLE DEVELOPMENT OF ADDICTION OR TOLERANCE AND THE PATIENT VERBALIZED UNDERSTANDING. THE PATIENT REPORTS THE USE OF THE PRESCRIBED MEDICATION IS ONLY FOR PAIN CONTROL AND THAT NO MISUSE OF THE MEDICATION WILL OCCUR. THE PATIENT DENIES THE USE OF ANY ILLEGAL SUBSTANCES INCLUDING MARIHUANA. THE PATIENT REPORTS UNDERSTANDING AND FOLLOWING THE AGREEMENTS OF THE NARCOTIC AGREEMENT SIGNED WITH OUR PRACTICE. THE PATIENT WILL FOLLOW UP WITH THE NURSE PRACTITIONER IN 3 WEEKS A PHYSICAL VISIT. I ADVISED THE PATIENT TO BRING HER MEDICATION TO HER NEXT VISIT HERE. THE PLAN IS TO DO ANOTHER NARCOTIC AGREEMENT AND URINE TOXICOLOGY AT HER NEXT VISIT. I WOULD LIKE TO DISCUSS THE PATIENT CASE WITH HER PROVIDER IN [place], DR. SANDI RODRIGUEZ AT [address] [place] [address]. PHONE NUMBER [phone] AND FAX [phone]. THE PATIENT SAYS HER FOOT DOCTOR WAS ALSO IN [place] AND CAN BE REACHED AT [phone]. INSTRUCTIONS WERE GIVEN, QUESTIONS WERE ANSWERED, PATIENT REPORTS UNDERSTANDING AND AGREES WITH THE PLAN. I, LAUREN HUANG, DOCUMENTED THE ABOVE INFORMATION ACTING A SCRIBE FOR DR. HI. I HAVE REVIEWED THE ABOVE DOCUMENT, WRITTEN BY LAUREN HUANG SCRIBArleth AND I VERIFY THAT IT IS ACCURATE. . OTHERS CONTINUE HYDROCODONE-ACETAMINOPHEN TABLET, 7.5-325 MG, 1 TAB, ORALLY FOR PAIN, EVERY 12 HOURS NEEDED MDD2, 30 DAYS, 60, REFILLS 0 DISPOSITION & COMMUNICATION FOLLOW UP 3 WEEKS (REASON: F/UP WITH DR. Arita (PHYSICAL VISIT)) ELECTRONICALLY SIGNED BY AMEYA HI MD, MD ON 04/05/2020 AT 10:51 AM EDT DISCLAIMER : THIS IS A VISIT SUMMARY EXTRACTED FROM THE [facility] CHART. IT IS NOT A COPY OF THE [email or web address] PROGRESS NOTE. MTDD
== END ==
LOC: M PAIN 14:15 → M TMPAIN 14:15
PROVIDERS: ATTEND Anesthesiology
DX: M79.672 Pain in left foot (principal); M79.2 Neuralgia and neuritis, unspecified; I10 Essential (primary) hypertension; J44.9 Chronic obstructive pulmonary disease, unspecified; F17.210 Nicotine dependence, cigarettes, uncomplicated; Z79.891 Long term (current) use of opiate analgesic; Z79.899 Other long term (current) drug therapy; Z88.0 Allergy status to penicillin

== ENCOUNTER → 2020-04-11 | Outpatient (CLI) | payer OTHER ==
--- NOTE | 2020-04-12 04:20 | REP ---
Clinical: Lung screening. History smoking. Comparison: None Technique: Axial low-dose noncontrast images from the thoracic inlet to the upper abdomen using lung screening technique. Findings: The lung mercado are well-aerated. 4 mm noncalcified nodule in the left apex (image 12) noted along with minimal basilar presumed linear scarring. No consolidation or mass lesion. No pleural effusion/reaction or pneumothorax. Tracheobronchial tree is patent. Mediastinum demonstrates mild atherosclerotic changes of the coronary arteries without cardiomegaly. Impression: Lung-RADS category III. No prior examinations are available for comparison. 4 mm noncalcified nodule in the left apex. Management recommendations include 6-month low-dose CT follow-up examination. Electronically Signed by Braulio Nino MD 04/12/2020 04:12 A
== END ==
LOC: M RAD 11:27
PROVIDERS: ATTEND Nurse Practitioner Adult Health
DX: F17.210 Nicotine dependence, cigarettes, uncomplicated (principal); Z12.2 Encounter for screening for malignant neoplasm of respiratory organs

== ENCOUNTER 2020-04-25 12:46 | Outpatient (RCR) | payer OTHER | END 2020-04-30 | LOC: M PT 12:46 | PROVIDERS: ATTEND Physician Assistant | DX: Z51.89 Encounter for other specified aftercare (principal); M79.672 Pain in left foot ==

== ENCOUNTER → 2020-04-25 | Outpatient (CLI) | payer OTHER, MEDICAID ==
--- NOTE | 2020-04-29 02:33 | ECWPNPC ---
PATIENT NAME: LUIS CANTRELL : 1960 GENDER: FEMALE VISIT DATE: 04/25/2020 DISCHARGE DATE: 04/25/20 1528 VISIT LOCKED DATE TIME: PHYSICIAN: AMEYA HI MD RESOURCE: AMEYA HI MD REASON FOR APPOINTMENT 1. LEFT FOOT PAIN HISTORY OF PRESENT ILLNESS HISTORY OF PRESENT ILLNESS: PAIN THE PATIENT DESCRIBES THE PAIN... 60 YEAR OLD FEMALE PATIENT WITH A HISTORY OF CHRONIC LEFT FOOT PAIN. THE PATIENT DESCRIBES HER PAIN IT COMES AND GOES, THROBBING, SHOOTING WITH A PAIN SCORE OF 5-8/10 DEPENDING ON PHYSICAL ACTIVITY. THE PATIENT HAD LEFT FOOT SURGERY IN 2013 AND 2015, BUT HER PAIN PERSISTS. THE PATIENT IS CURRENTLY GOING TO PHYSICAL THERAPY EVERY FRIDAY, WHICH IS HELPING WITH HER PAIN. THE PATIENT IS USING TWO TABLETS DAILY OF HYDROCODONE-ACETAMINOPHEN TABLET 7.5-325 MG THAT IS HELPING VERY WELL WITH HER PAIN. THE PATIENT DENIES ABUSE OF MEDICATION OR USE OF ILLEGAL SUBSTANCE AND IS BEING COMPLIANT WITH HER MEDICATION. THE PATIENT DENIES UNEXPLAINED WEIGHT LOSS, FEVER, CHILLS, NEW CHANGES IN HER URINARY OR BOWEL CONTROL. FALL RISK SCREENING: SCREENING :NO FALLS REPORTED IN THE LAST YEAR CURRENT MEDICATIONS TAKING OXYGEN 2 L/MIN VIA NC NEEDED TAKING PROAIR HFA 108 (90 BASE) MCG/ACT AEROSOL SOLUTION 2 PUFFS NEEDED INHALATION QID PRN TAKING QUETIAPINE FUMARATE ER 400 MG TABLET EXTENDED RELEASE 24 HOUR 1 TABLET IN THE EVENING ORALLY TWICE DAILY TAKING ATORVASTATIN CALCIUM 40 MG TABLET 1 TABLET ORALLY ONCE A DAY TAKING LISINOPRIL 40 MG TABLET 1 TABLET ORALLY ONCE A DAY TAKING METFORMIN HCL 500 MG TABLET 1 TABLET WITH A MEAL ORALLY TWICE DAILY TAKING AMLODIPINE BESYLATE 10 MG TABLET 1 TABLET ORALLY ONCE A DAY TAKING METOPROLOL SUCCINATE 50 MG CAPSULE ER 24 HOUR SPRINKLE 1 CAPSULE ORALLY ONCE A DAY TAKING CLONAZEPAM 1 MG TABLET 1/2 TABLET ORALLY BID TAKING ZOLOFT 50 MG TABLET 1 TABLET ORALLY ONCE A DAY TAKING PANTOPRAZOLE SODIUM 40 MG TABLET DELAYED RELEASE 1 TABLET ORALLY ONCE A DAY TAKING GABAPENTIN 300 MG CAPSULE 1 CAPSULE ORALLY THREE TIMES DAILY TAKING CLOBETASOL PROPIONATE 0.05 % CREAM 1 APPLICATION EXTERNALLY TWICE A DAY TAKING VITAMIN D (ERGOCALCIFEROL) 1.25 MG (88947 UT) CAPSULE 1 CAPSULE ORALLY WEEKLY TAKING FLONASE ALLERGY RELIEF 50 MCG/ACT SUSPENSION 1 SPRAY IN EACH NOSTRIL NASALLY ONCE A DAY TAKING HYDROCODONE-ACETAMINOPHEN 7.5-325 MG TABLET 1 TAB ORALLY FOR PAIN EVERY 12 HOURS NEEDED MDD2 NOT-TAKING PEPCID 20 MG TABLET 1 TAB ORALLY TWICE DAILY NOT-TAKING VESICARE 10 MG TABLET 1 TABLET ORALLY ONCE A DAY NOT-TAKING IBUPROFEN 800 MG TABLET 1 TABLET WITH FOOD OR MILK NEEDED ORALLY TWICE DAILY NEEDED PAST MEDICAL HISTORY CHRONIC LEFT FOOT PAIN ANXIETY AND DEPRESSION HTN DIABETES COPD OVER ACTIVE BLADDER WITH STRESS INCONTINENCE SEIZURES GERD HYERLIPIDEMIA SMOKER ARTHRITIS BILATERAL KNEES BILATERAL CARPAL TUNNEL SYNDROME PNEUMONIA X 2 NICOTINE DEPENDENCE, CIAGRETTES ALLERGIES PENICILLIN (FOR ALLERGIES USE ONLY): REACTION A CHILD AND TOLD NEVER TO TAKE - ALLERGY SURGICAL HISTORY ORIF LEFT FOOT AND ANKLE 06/18/2018 HYSTERECTOMY 1984 BILATERAL CARPAL TUNNEL RELEASE CHOLECYSTECTOMY LEFT FOOT SURGERY 2016 LEFT FOOT SURGERY 2013 FAMILY HISTORY FATHER: , DOESN'T KNOW MEDICAL HISTORY MOTHER: , FROM [place], DOESN'T KNOW HER MEDICAL HISTORY SON(S): HEALTHY DAUGHTER(S): HIV 2 SON(S) , 1 DAUGHTER(S) . SOCIAL HISTORY GENERAL: TOBACCO USE ARE YOU A:CURRENT SMOKER ARE YOU INTERESTED IN QUITTING?READY TO QUIT PREVIOUS QUIT ATTEMPTS?YES, WITHIN THE LAST 6 MONTHS. COUNSELED THE PATIENT ON TOBACCO USE, CESSATION [id number]/22/2020 HOW MANY CIGARETTES A DAY DO YOU SMOKE?6-10 LATEX QUESTIONNAIRE DATE ASKED : 04/21/2020 ALCOHOL SCREENING DID YOU HAVE A DRINK CONTAINING ALCOHOL IN THE PAST YEAR?YES HOW OFTEN DID YOU HAVE SIX OR MORE DRINKS ON ONE OCCASION IN THE PAST YEAR?NEVER (0 POINTS) HOW MANY DRINKS DID YOU HAVE ON A TYPICAL DAY WHEN YOU WERE DRINKING IN THE PAST YEAR?1 OR 2 (0 POINTS) HOW OFTEN DID YOU HAVE A DRINK CONTAINING ALCOHOL IN THE PAST YEAR?MONTHLY OR LESS (1 POINT) POINTS1 INTERPRETATIONNEGATIVE RECREATIONAL DRUG USE DRUG USE?NO CAFFEINE CAFFEINE USE?YES HOW OFTEN AND HOW MUCH? COFFEE 2-3 CUPS PER DAY DIET PEPSI 4 12 OX CANS PER DAY AMISH [id number] [employer] LANGUAGE LANGUAGES SPOKEN:PANAMANIAN EDUCATION LEVEL OF EDUCATION:NOT FINISHED HIGH SCHOOL LEARNING BARRIERS / SPECIAL NEEDS BARRIERS TO LEARNING?YES COMMENTS STATES IS SLOW TO COMPREHEND WRITTEN INFORMATION. HEARING IMPAIRED?NO VISION IMPAIRED?YES COGNITIVELY IMPAIRED?NO :CORRECTIVE LENSES READINESS TO LEARN?YES LEARNING PREFERENCES?YES :DEMONSTRATION/VERBAL INSTRUCTION LEARNING CAPABILITIES PRESENT?YES EMOTIONAL BARRIERS?NO SPECIAL DEVICES?YES ROLLING WALKER, PORTABLE OXYGEN 2 LMIN DURING NIGHT AND NEEDED. JEWELRY COATER NEEDED?NO DOMESTIC VIOLENCE DO YOU FEEL SAFE IN YOUR ENVIRONMENT?YES OCCUPATION: DISABLED. DIET: REGULAR. EXERCISE: STATES EXERCISES DAILY AND WALKS ALSO.. MARITAL STATUS: .. OTHERS AT HOME: SON, SON'S FIANCEE, 2 GRANDCHILDREN. NEW PATIENT PAIN DIARY TODAY'S VISIT 04/04/20 PATIENT DESCRIBES PAIN :IT COMES AND GOES, THROBBING, SHOOTING FROM 0-10, WHAT LEVEL IS YOUR PAIN TODAY?6 PRECIPITATING FACTORS LACK OF MEDS ALLEVIATING FACTORS MEDS IMPACT ON FUNCTION YES PAIN CLINIC PFS, CLERGY, PUBLIC HEALTH REFERRALS PFS REFERRAL NEEDED?NO CLERGY REFERRAL NEEDED?NO PUBLIC HEALTH REFERRAL NEEDED?NO WAS THE PROVIDER NOTIFIED OF ANY PERTINENT INFO?NO HAS THE PATIENT BEEN EDUCATED REGARDING HIS/HER PLAN OF CARE?YES HAS THE PATIENT BEEN EDUCATED REGARDING PAIN, THE RISK FOR PAIN, THE IMPORTANCE OF EFFECTIVE PAIN MANAGEMENT, AND THE PAIN ASSESSMENT PROCESS?YES HOUSING: STAYING IN SON'S HOUSE. WAITING FOR APARTMENT TO BECOME AVAILABLE.. ADVANCE DIRECTIVE ADVANCE DIRECTIVE DISCUSSED WITH PATIENT:YES DECLINED 04/21/2020 01/26/2020 PRE NPC APPOINTMENT COMPLETED. HOSPITALIZATION/MAJOR DIAGNOSTIC PROCEDURE CHILDBIRTH PNEUMONIA X 2 SURGERIES REVIEW OF SYSTEMS REVIEWED BY: PROVIDER: AMEYA HI MD . CONSTITUTIONAL: ANY CHANGE IN YOUR MEDICAL CONDITION? NO . CHILLS NO . FEVER NO . INFECTION: DO YOU HAVE NEW INFECTIONS? NO . DO YOU HAVE HISTORY OF MRSA? NO . MUSCULOSKELETAL: ANY NEW PATTERNS OF PAIN OR NUMBNESS? YES, CHARLEY HORSE LEFT LEG . GASTROENTEROLOGY: ANY NEW CHANGE IN BOWEL CONTROL? NO . GENITOURINARY: ANY NEW CHANGE IN BLADDER CONTROL? NO . IS THERE A CHANCE YOU COULD BE ? NO . HEMATOLOGY/LYMPH: DO YOU TAKE ANY BLOOD THINNERS? (FOR EXAMPLE- COUMADIN, PLAVIX, AGGRENOX, PLATEL, PRADAXA, OR XARELTO) NO . WHEN WAS YOUR LAST DOSE? DATE: TIME: . NEUROLOGY: HAVE YOU FALLEN IN THE PAST 12 MONTHS? YES, BRUISE ON LEFT LEG, . ANY NEW EXTREMITY NUMBNESS OR WEAKNESS? NO . CARDIOLOGY: DO YOU HAVE A PACEMAKER OR DEFIBRILLATOR? NO . RESPIRATORY: HAVE YOU BEEN SICK IN THE PAST WEEK? NO . FEVER NO . FLU LIKE SYMPTOMS? NO . COUGH NO . INTEGUMENTARY: DO YOU HAVE ANY RASHES OR OPEN SORES? NO . ALLERGIC/IMMUNO: ARE YOU ALLERGIC TO IV DYE? NO . ANY NEW ALLERGIES? NO . PSYCHIATRIC: DO YOU HAVE THOUGHTS OF HURTING YOURSELF OR SOMEONE ELSE? NO . ARE YOU ABUSED, NEGLECTED, OR IN AN UNSAFE ENVIRONMENT? NO . ENDOCRINOLOGY: ARE YOU DIABETIC? YES . OTHER: DO YOU NEED ANY PRESCRIPTIONS? NO . IF YES, PLEASE LIST: ____ . ANY NEW PROBLEMS WITH YOUR MEDICATIONS? NO . WHEN DID YOU LAST EAT? ____ . WHEN DID YOU LAST DRINK? ____ . WHAT DID YOU LAST DRINK? ____ . NAME OF PERSON DRIVING YOU HOME? ____ . DO YOU HAVE ANY OTHER QUESTIONS OR CONCERNS NO . VITAL SIGNS WT 288.2 LBS, HT 72 IN, BMI 39.08 INDEX, BP 137/63 MM HG, HR 65 /MIN, RR 20 /MIN, TEMP 98.6 F, OXYGEN SAT % 96%, NA INITIALS SC 12:12. EXAMINATION GENERAL EXAMINATION: PATIENT IS ALERT O X 3 AND COOPERATIVE. PAIN OVER SCAR OF LEFT FOOT. 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 CANTRELL'S PAIN MANAGEMENT CASE. I DISCUSSED THE PATIENT'S CASE WITH HER PROVIDER IN [place], DR. SANDI RODRIGUEZ, WHO EXPLAINED THAT IN THE LAST FEW YEARS THE PATIENT HAS BEEN RELIABLE AND FOLLOWING INSTRUCTIONS WITH THE USE OF OPIOIDS. THERE WAS A PREVIOUS INCIDENT THAT HAD OCCURRED SEVERAL YEARS AGO WHILE THE PATIENT WAS USING XANAX AND OTHER NARCOTICS, HOWEVER THE PATIENT WAS COMPLIANT WITH HER NARCOTIC MEDICATION. THE PATIENT WILL CONTINUE WITH HYDROCODONE-ACETAMINOPHEN TABLET 7.5-325 MG, WHICH I REFILLED FOR HER TODAY. ISTOP # [id number] WAS REVIEWED. A NEW NARCOTIC AGREEMENT WILL BE ESTABLISHED TODAY AND ANOTHER UTOX DONE TODAY WELL. THE PATIENT WAS ADVISED TO BRING HER MEDICATION WITH HER TO EACH VISIT AT OUR CLINIC. THE PATIENT WILL FOLLOW UP WITH THE NURSE PRACTITIONER IN ONE MONTH. , INSTRUCTIONS WERE GIVEN, QUESTIONS WERE ANSWERED, PATIENT REPORTS UNDERSTANDING AND AGREES WITH THE PLAN. I, LAUREN HUANG, DOCUMENTED THE ABOVE INFORMATION ACTING A SCRIBE FOR DR. HI. I HAVE REVIEWED THE ABOVE DOCUMENT, WRITTEN BY LAUREN WALTER AND I VERIFY THAT IT IS ACCURATE. . 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 IT IS NOT A COPY OF THE [facility] PROGRESS NOTE. DA
== END ==
LOC: M PAIN 14:15
PROVIDERS: ATTEND Anesthesiology
DX: M79.672 Pain in left foot (principal); M79.2 Neuralgia and neuritis, unspecified

== ENCOUNTER 2020-05-18 08:50 | Outpatient (RCR) | payer OTHER | END 2020-05-30 | LOC: M PT 08:50 | PROVIDERS: ATTEND Physician Assistant | DX: M79.672 Pain in left foot (principal) ==

== ENCOUNTER → 2020-05-20 | Outpatient (CLI) | payer OTHER ==
--- NOTE | 2020-05-25 13:29 | SLEEPCENT ---
DATE OF STUDY: 05/20/2020 ORDERED BY: Sallie Parrish Nocturnal polysomnography was performed for evaluation of sleep physiology in a patient with a history of obstructive sleep apnea syndrome experiencing nonrestorative sleep. 8 hours and 10 minutes of data were reviewed. There were 395.5 minutes of sleep identified. Sleep latency was mildly prolonged at 10.5 minutes. REM latency was normal at 81 minutes. Sleep architecture was good with 3 REM cycles. Overall sleep efficiency was 82.3%. The patient's electrocardiogram showed a sinus rhythm with frequent PACs. Average heart rate 60 beats per minute. Rate ranged 55-75. Electroencephalogram (EEG) showed coarsening in background, no focal events and normal waveforms for awake and sleep. There were 20 respiratory events identified of 10 seconds in duration or greater for an apnea-hypopnea index of 3. The events were primarily REM related and hypopneic. Significant snoring was noted over the course of the study. Respiratory related arousals occurred 3.2 times per hour. There was 1 oxygen desaturation below 90% and scattered limb activity was appreciated. IMPRESSION: Normal nocturnal polysomnography with snoring.
== END ==
LOC: M SLEEP 20:00
PROVIDERS: ATTEND Nurse Practitioner Adult Health
DX: G47.30 Sleep apnea, unspecified (principal)

== ENCOUNTER → 2020-05-24 | Outpatient (CLI) | payer OTHER, MEDICAID ==
--- NOTE | 2020-05-26 02:48 | ECWPNPC ---
PATIENT NAME: LUIS CANTRELL : 1960 GENDER: FEMALE VISIT DATE: 05/24/2020 DISCHARGE DATE: 05/24/20 1133 VISIT LOCKED DATE TIME: PHYSICIAN: RIK DIAZ RESOURCE: RIK DIAZ REASON FOR APPOINTMENT 1. FIRST TIME 30 MIN HISTORY OF PRESENT ILLNESS GENERAL: - 60-YEAR-OLD FEMALE IN FOR CHRONIC PAIN FOLLOW-UP. SHE RATES HER PAIN CURRENTLY AT A 5 OUT OF 10 AND DESCRIBES IT SHARP AND THROBBING. PATIENT FEELS HER MEDICATIONS ARE HELPFUL AND DENIES MED SIDE EFFECTS AT THIS TIME. PATIENT DOES ADMIT TO IBUPROFEN USE NEEDED. FALL RISK SCREENING: SCREENING :TWO OR MORE FALLS WITHOUT INJURY IN THE PAST YEAR PAIN SCREENING: PATIENT HAS A COMPLAINT OF ACUTE OR CHRONIC PAIN :YES LOCATION OF PAIN:LOW BACK, LEG(S), KNEES, FEET INTENSITY OF PAIN (SCALE OF 1 TO 10):5 WHAT DOES YOUR PAIN FEEL LIKE:SHARP, THROBBING PAIN IS INCREASED BY:ACTIVITIES PAIN IS DECREASED BY: RUBBING, PAIN MEDICATION NURSING NOTE: -. PAIN CENTER INTAKE QUESTIONS: DO YOU HAVE A HISTORY OF MRSA? :YES AFTER SURGERY LEFT FOOT, ALSO ON A SORE ON HER CHIN. NOT CURRENT DO YOU TAKE A BLOOD THINNERS? :NO DO YOU HAVE ANY BLEEDING DISORDERS? :NO ANY NEW NUMBNESS OR WEAKNESS IN YOUR LEGS OR ARMS? :NO ANY PACEMAKER,DEFIBRILLATOR, OR DORSAL COLUMN STIMULATOR? :NO DO YOU HAVE ANY RASHES OR OPEN SORES? :NO ARE YOU ALLERGIC TO IV DYE? :NO ARE YOU DIABETIC? :YES ANY NEW PROBLEMS WITH YOUR MEDICATIONS? :NO HAVE YOU RECEIVED A VACCINE IN THE PAST 30 DAYS? :NO DO YOU PLAN TO RECEIVE A VACCINE IN THE NEXT 21 DAYS? :NO DO YOU NEED ANY PRESCRIPTION? :YES HYDROCODONE DO YOU TAKE ANY IMMUNOSUPPRESSIVE MEDICATIONS? :NO IS THERE A CHANCE YOU COULD BE ? :NO ARE YOU BREAST FEEDING? :NO CURRENT MEDICATIONS TAKING OXYGEN 2 L/MIN VIA NC NEEDED TAKING PROAIR HFA 108 (90 BASE) MCG/ACT AEROSOL SOLUTION 2 PUFFS NEEDED INHALATION QID PRN TAKING QUETIAPINE FUMARATE ER 400 MG TABLET EXTENDED RELEASE 24 HOUR 1 TABLET IN THE EVENING ORALLY TWICE DAILY TAKING ATORVASTATIN CALCIUM 40 MG TABLET 1 TABLET ORALLY ONCE A DAY TAKING LISINOPRIL 40 MG TABLET 1 TABLET ORALLY ONCE A DAY TAKING METFORMIN HCL 850 MG TABLET 1 TABLET WITH A MEAL ORALLY TWICE DAILY TAKING AMLODIPINE BESYLATE 10 MG TABLET 1 TABLET ORALLY ONCE A DAY TAKING METOPROLOL SUCCINATE 50 MG CAPSULE ER 24 HOUR SPRINKLE 1 CAPSULE ORALLY ONCE A DAY TAKING CLONAZEPAM 1 MG TABLET 1/2 TABLET ORALLY BID TAKING ZOLOFT 50 MG TABLET 1 TABLET ORALLY ONCE A DAY TAKING PANTOPRAZOLE SODIUM 40 MG TABLET DELAYED RELEASE 1 TABLET ORALLY ONCE A DAY TAKING GABAPENTIN 300 MG CAPSULE 1 CAPSULE ORALLY THREE TIMES DAILY TAKING CLOBETASOL PROPIONATE 0.05 % CREAM 1 APPLICATION EXTERNALLY TWICE A DAY TAKING VITAMIN D (ERGOCALCIFEROL) 1.25 MG (07021 UT) CAPSULE 1 CAPSULE ORALLY WEEKLY TAKING FLONASE ALLERGY RELIEF 50 MCG/ACT SUSPENSION 1 SPRAY IN EACH NOSTRIL NASALLY ONCE A DAY TAKING HYDROCODONE-ACETAMINOPHEN 7.5-325 MG TABLET 1 TAB ORALLY FOR PAIN EVERY 12 HOURS NEEDED MDD2 TAKING ZOLOFT 25 MG TABLET 1 TABLET ORALLY ONCE A DAY TAKING IRON 325 (65 FE) MG TABLET 1 TABLET ORALLY ONCE A DAY NOT-TAKING PEPCID 20 MG TABLET 1 TAB ORALLY TWICE DAILY NOT-TAKING VESICARE 10 MG TABLET 1 TABLET ORALLY ONCE A DAY NOT-TAKING IBUPROFEN 800 MG TABLET 1 TABLET WITH FOOD OR MILK NEEDED ORALLY TWICE DAILY NEEDED MEDICATION LIST REVIEWED AND RECONCILED WITH THE PATIENT PAST MEDICAL HISTORY CHRONIC LEFT FOOT PAIN ANXIETY AND DEPRESSION HTN DIABETES COPD OVER ACTIVE BLADDER WITH STRESS INCONTINENCE SEIZURES GERD HYERLIPIDEMIA SMOKER ARTHRITIS BILATERAL KNEES BILATERAL CARPAL TUNNEL SYNDROME PNEUMONIA X 2 NICOTINE DEPENDENCE, CIAGRETTES ALLERGIES PENICILLIN (FOR ALLERGIES USE ONLY): REACTION A CHILD AND TOLD NEVER TO TAKE - ALLERGY SURGICAL HISTORY ORIF LEFT FOOT AND ANKLE 06/18/2018 HYSTERECTOMY 1984 BILATERAL CARPAL TUNNEL RELEASE CHOLECYSTECTOMY LEFT FOOT SURGERY 2016 LEFT FOOT SURGERY 2014 FAMILY HISTORY FATHER: , DOESN'T KNOW MEDICAL HISTORY MOTHER: , FROM MVA, DOESN'T KNOW HER MEDICAL HISTORY SON(S): HEALTHY DAUGHTER(S): HIV 2 SON(S) , 1 DAUGHTER(S) . SOCIAL HISTORY GENERAL: TOBACCO USE ARE YOU A:CURRENT SMOKER ARE YOU INTERESTED IN QUITTING?READY TO QUIT PREVIOUS QUIT ATTEMPTS?YES, WITHIN THE LAST 6 MONTHS. COUNSELED THE PATIENT ON TOBACCO USE, CESSATION [id number]/22/2020 HOW MANY CIGARETTES A DAY DO YOU SMOKE?6-10 DOWN FROM TWO PACKS/DAY LATEX QUESTIONNAIRE DATE ASKED : 04/21/2020 ALCOHOL SCREENING DID YOU HAVE A DRINK CONTAINING ALCOHOL IN THE PAST YEAR?YES HOW OFTEN DID YOU HAVE SIX OR MORE DRINKS ON ONE OCCASION IN THE PAST YEAR?NEVER (0 POINTS) HOW MANY DRINKS DID YOU HAVE ON A TYPICAL DAY WHEN YOU WERE DRINKING IN THE PAST YEAR?1 OR 2 (0 POINTS) HOW OFTEN DID YOU HAVE A DRINK CONTAINING ALCOHOL IN THE PAST YEAR?MONTHLY OR LESS (1 POINT) POINTS1 INTERPRETATIONNEGATIVE RECREATIONAL DRUG USE DRUG USE?NO CAFFEINE CAFFEINE USE?YES HOW OFTEN AND HOW MUCH? COFFEE 2-3 CUPS PER DAY DIET PEPSI 4 12 OX CANS PER DAY GNOSTICISM [id number] CHEONDOISM LANGUAGE LANGUAGES SPOKEN:KAZAKH EDUCATION LEVEL OF EDUCATION:NOT FINISHED HIGH SCHOOL LEARNING BARRIERS / SPECIAL NEEDS BARRIERS TO LEARNING?YES COMMENTS STATES IS SLOW TO COMPREHEND WRITTEN INFORMATION. HEARING IMPAIRED?NO VISION IMPAIRED?YES :CORRECTIVE LENSES COGNITIVELY IMPAIRED?NO READINESS TO LEARN?YES LEARNING PREFERENCES?YES :DEMONSTRATION/VERBAL INSTRUCTION LEARNING CAPABILITIES PRESENT?YES EMOTIONAL BARRIERS?NO SPECIAL DEVICES?YES ROLLING WALKER, PORTABLE OXYGEN 2 LMIN DURING NIGHT AND NEEDED. 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 DIET: REGULAR. EXERCISE: STATES EXERCISES DAILY AND WALKS ALSO.. MARITAL STATUS: .. OTHERS AT HOME: SON, SON'S WALI, 2 GRANDCHILDREN. NEW PATIENT PAIN DIARY TODAY'S VISIT 04/04/20 PATIENT DESCRIBES PAIN :IT COMES AND GOES, THROBBING, SHOOTING FROM 0-10, WHAT LEVEL IS YOUR PAIN TODAY?6 PRECIPITATING FACTORS LACK OF MEDS ALLEVIATING FACTORS MEDS IMPACT ON FUNCTION YES PAIN CLINIC PFS, CLERGY, PUBLIC HEALTH REFERRALS PFS REFERRAL NEEDED?NO CLERGY REFERRAL NEEDED?NO PUBLIC HEALTH REFERRAL NEEDED?NO WAS THE PROVIDER NOTIFIED OF ANY PERTINENT INFO?NO HAS THE PATIENT BEEN EDUCATED REGARDING HIS/HER PLAN OF CARE?YES HAS THE PATIENT BEEN EDUCATED REGARDING PAIN, THE RISK FOR PAIN, THE IMPORTANCE OF EFFECTIVE PAIN MANAGEMENT, AND THE PAIN ASSESSMENT PROCESS?YES HOUSING: STAYING IN SON'S HOUSE. WAITING FOR APARTMENT TO BECOME AVAILABLE.. ADVANCE DIRECTIVE ADVANCE DIRECTIVE DISCUSSED WITH PATIENT:YES HAS NO HEALTH CARE PROXY, INFORMATION GIVEN, DECLINES ASSISTANCE HOSPITALIZATION/MAJOR DIAGNOSTIC PROCEDURE CHILDBIRTH PNEUMONIA X 2 SURGERIES REVIEW OF SYSTEMS CONSTITUTIONAL: ANY RECENT FEVER NO . CHILLS NO . WEIGHT CHANGE OF UNKNOWN REASONS NO . GASTROENTEROLOGY: NEW UNEXPLAINABLE CHANGES IN BOWEL CONTROL NO . CONSTIPATION NO . GENITOURINARY: ANY NEW CHANGE IN BLADDER CONTROL? NO . NEUROLOGY: NEW ONSET DIZZINESS OR NEUROLOGICAL CHANGES NOT MENTIONED NO . NEW NUMBNESS OR PAIN PATTERNS NOT MENTIONED AND PERTINENT TO TODAY'S VISIT NO . CARDIOLOGY: NEW CHEST PRESSURE NO . NEW CHEST PAIN NO . RESPIRATORY: UNEXPLAINABLE COUGH NO . NEW SHORTNESS OF BREATH NO . VITAL SIGNS WT 286.2 LBS, HT 72 IN, BMI 38.81 INDEX, BP 167/80 MM HG, HR 68 /MIN, RR 20 /MIN, TEMP 97.6 F, OXYGEN SAT % 95%, NA INITIALS SC 10:45. EXAMINATION GENERAL EXAMINATION: GENERALNO ACUTE DISTRESS, WELL NOURISHED AND HYDRATED. PSYCHAPPROPRIATE MOOD AND AFFECT . LUNGS:LUNG SOUNDS DECREASED BILATERALLY . HEART:NO MURMURS, REGULAR RATE AND RHYTHM. ASSESSMENTS PAIN IN LEFT FOOT - M79.672 (PRIMARY) TREATMENT PAIN IN LEFT FOOT STOP IBUPROFEN TABLET, 800 MG, 1 TABLET WITH FOOD OR MILK NEEDED, ORALLY, TWICE DAILY NEEDED START ACETAMINOPHEN EXTRA STRENGTH TABLET, 500 MG, 2 TABLET NEEDED, ORALLY, TWICE DAILY, 30 DAYS, 60 CLINICAL NOTES: 60-YEAR-OLD FEMALE IN FOR CHRONIC PAIN FOLLOW-UP. DISCUSSED IBUPROFEN USE WITH PATIENT AND GIVEN THAT SHE HAS A HISTORY OF DIABETES SHE WAS ENCOURAGED TO STOP IBUPROFEN USE AND START USING EXTRA STRENGTH TYLENOL NOT TO EXCEED 2000 MG IN A DAY SHE ALSO GETS TYLENOL FROM HER HYDROCODONE. FURTHER RECOMMENDED CONTINUATION OF HYDROCODONE WITH FOLLOW-UP IN 2 MONTHS. PATIENT HAS EXPRESSED UNDERSTANDING OF AND WAS IN AGREEMENT WITH TREATMENT PLAN. GIVEN TIME TO ASK QUESTIONS AND EXPRESS CONCERNS. , ISTOP REGISTRY REVIEWED AND DEMONSTRATES COMPLLIANCE. (REF # ) BRINGS IN MEDICATIONS WHICH IS APPROPRIATE FOR WHAT WAS DISPENSED. RECENT URINE TOXICOLOGY REVIEWED. NO UNAUTHORIZED MEDICATIONS. NO ILLICIT SUBSTANCES AND PRESCRIBED MEDICATIONS WERE PRESENT. PREVENTIVE MEDICINE PAIN CLINIC TEACHING: MEDICATIONS REVIEWED MEDICATION CHANGES WITH PATIENT, PATIENT VERBALIZES UNDERSTANDING. LAS. PROCEDURE CODES FA211 ESTABILISHED PATIENT [facility] CHARGE DISPOSITION & COMMUNICATION FOLLOW UP 2 MONTHS (REASON: FOOT PAIN ) ELECTRONICALLY SIGNED BY ROMAN KOVACS ON 05/25/2020 AT 08:03 AM EDT DISCLAIMER : THIS IS A VISIT SUMMARY EXTRACTED FROM THE [employer] CHART. IT IS NOT A COPY OF THE [employer] PROGRESS NOTE. DA
== END ==
LOC: M PAIN 11:00
PROVIDERS: ATTEND Family Medicine
DX: M79.672 Pain in left foot (principal)

== ENCOUNTER → 2020-07-24 | Outpatient (CLI) | payer OTHER, MEDICAID | LOC: M PAIN 10:50 | PROVIDERS: ATTEND Family Medicine | DX: M79.672 Pain in left foot (principal) ==

== ENCOUNTER → 2020-09-01 | Outpatient (CLI) | payer OTHER, MEDICAID ==
--- NOTE | 2020-09-04 09:29 | ECWPNPC ---
PATIENT NAME: LUIS CANTRELL : 1960 GENDER: FEMALE VISIT DATE: 09/01/2020 DISCHARGE DATE: 09/01/20 1127 VISIT LOCKED DATE TIME: PHYSICIAN: RIK DIAZ RESOURCE: RIK DIAZ REASON FOR APPOINTMENT 1. LEFT FOOT HISTORY OF PRESENT ILLNESS DEPRESSION SCREENING: PHQ-2 (2015 EDITION) LITTLE INTEREST OR PLEASURE IN DOING THINGS?SEVERAL DAYS FEELING DOWN, DEPRESSED, OR HOPELESS?NOT AT ALL TOTAL SCORE1 60-YEAR-OLD FEMALE IN FOR CHRONIC PAIN FOLLOW-UP. SHE RATES HER PAIN CURRENTLY AT A 6 OUT OF 10 AND DESCRIBES IT ACHING, BURNING, THROBBING, SHOOTING, ESPECIALLY IN HER LOWER BACK. AT LAST CLINIC VISIT HER MEDICATIONS WERE INCREASED TO 3 TIMES A DAY DOSING AND SHE FEELS THIS WAS EXTREMELY HELPFUL. GENERAL: -. FALL RISK SCREENING: SCREENING :NO FALLS REPORTED IN THE LAST YEAR PAIN SCREENING: PATIENT HAS A COMPLAINT OF ACUTE OR CHRONIC PAIN :YES LOCATION OF PAIN:LOW BACK AND LEFT FOOT INTENSITY OF PAIN (SCALE OF 1 TO 10):6 WHAT DOES YOUR PAIN FEEL LIKE:ACHING, BURNING, THROBBING, SHOOTING EXPICALLY THE LOWER BACK DURATION:CONTINOUS, CONSTANT PAIN IS INCREASED BY:ACTIVITIES, PROLONGED STANDING PAIN IS DECREASED BY:USE OF PAIN MEDICATIONS, SITTING NURSING NOTE: -. PAIN CENTER INTAKE QUESTIONS: DO YOU HAVE A HISTORY OF MRSA? :YES YES ABOUT 7 YEARS AGAO, IT WAS ON HER CHIN DO YOU TAKE A BLOOD THINNERS? :NO DO YOU HAVE ANY BLEEDING DISORDERS? :NO ANY NEW NUMBNESS OR WEAKNESS IN YOUR LEGS OR ARMS? :NO ANY PACEMAKER,DEFIBRILLATOR, OR DORSAL COLUMN STIMULATOR? :NO DO YOU HAVE ANY RASHES OR OPEN SORES? :NO ARE YOU ALLERGIC TO IV DYE? :NO ARE YOU DIABETIC? :YES ANY NEW PROBLEMS WITH YOUR MEDICATIONS? :NO HAVE YOU RECEIVED A VACCINE IN THE PAST 30 DAYS? :YES FLU VAC ON THE 08/23/2020 DO YOU PLAN TO RECEIVE A VACCINE IN THE NEXT 21 DAYS? :NO DO YOU NEED ANY PRESCRIPTION? :YES HYDROCODONE 7.5 /325 X3 A DAY DO YOU TAKE ANY IMMUNOSUPPRESSIVE MEDICATIONS? :NO IS THERE A CHANCE YOU COULD BE ? :NO ARE YOU BREAST FEEDING? :NO CURRENT MEDICATIONS NOT-TAKING PEPCID 20 MG TABLET 1 TAB ORALLY TWICE DAILY NOT-TAKING VESICARE 10 MG TABLET 1 TABLET ORALLY ONCE A DAY NOT-TAKING OXYGEN 2 L/MIN VIA NC NEEDED NOT-TAKING PROAIR HFA 108 (90 BASE) MCG/ACT AEROSOL SOLUTION 2 PUFFS NEEDED INHALATION QID PRN NOT-TAKING QUETIAPINE FUMARATE ER 400 MG TABLET EXTENDED RELEASE 24 HOUR 1 TABLET IN THE EVENING ORALLY TWICE DAILY NOT-TAKING ATORVASTATIN CALCIUM 40 MG TABLET 1 TABLET ORALLY ONCE A DAY NOT-TAKING LISINOPRIL 40 MG TABLET 1 TABLET ORALLY ONCE A DAY NOT-TAKING METFORMIN HCL 850 MG TABLET 1 TABLET WITH A MEAL ORALLY TWICE DAILY NOT-TAKING AMLODIPINE BESYLATE 10 MG TABLET 1 TABLET ORALLY ONCE A DAY NOT-TAKING METOPROLOL SUCCINATE 50 MG CAPSULE ER 24 HOUR SPRINKLE 1 CAPSULE ORALLY ONCE A DAY NOT-TAKING CLONAZEPAM 1 MG TABLET 1/2 TABLET ORALLY BID NOT-TAKING ZOLOFT 50 MG TABLET 1 TABLET ORALLY ONCE A DAY NOT-TAKING PANTOPRAZOLE SODIUM 40 MG TABLET DELAYED RELEASE 1 TABLET ORALLY ONCE A DAY NOT-TAKING GABAPENTIN 300 MG CAPSULE 1 CAPSULE ORALLY THREE TIMES DAILY NOT-TAKING CLOBETASOL PROPIONATE 0.05 % CREAM 1 APPLICATION EXTERNALLY TWICE A DAY NOT-TAKING VITAMIN D (ERGOCALCIFEROL) 1.25 MG (76312 UT) CAPSULE 1 CAPSULE ORALLY WEEKLY NOT-TAKING FLONASE ALLERGY RELIEF 50 MCG/ACT SUSPENSION 1 SPRAY IN EACH NOSTRIL NASALLY ONCE A DAY NOT-TAKING ZOLOFT 25 MG TABLET 1 TABLET ORALLY ONCE A DAY NOT-TAKING IRON 325 (65 FE) MG TABLET 1 TABLET ORALLY ONCE A DAY NOT-TAKING ACETAMINOPHEN EXTRA STRENGTH 500 MG TABLET 2 TABLET NEEDED ORALLY TWICE DAILY NOT-TAKING HYDROCODONE-ACETAMINOPHEN 7.5-325 MG TABLET 1 TAB ORALLY FOR PAIN EVERY 12 HOURS NEEDED MDD2 MEDICATION LIST REVIEWED AND RECONCILED WITH THE PATIENT PAST MEDICAL HISTORY CHRONIC LEFT FOOT PAIN ANXIETY AND DEPRESSION HTN DIABETES COPD OVER ACTIVE BLADDER WITH STRESS INCONTINENCE SEIZURES GERD HYERLIPIDEMIA SMOKER ARTHRITIS BILATERAL KNEES BILATERAL CARPAL TUNNEL SYNDROME PNEUMONIA X 2 NICOTINE DEPENDENCE, CIAGRETTES ALLERGIES PENICILLIN (FOR ALLERGIES USE ONLY): REACTION A CHILD AND TOLD NEVER TO TAKE - ALLERGY SURGICAL HISTORY ORIF LEFT FOOT AND ANKLE 06/18/2018 HYSTERECTOMY 1984 BILATERAL CARPAL TUNNEL RELEASE CHOLECYSTECTOMY LEFT FOOT SURGERY 2016 LEFT FOOT SURGERY 2013 FAMILY HISTORY FATHER: , DOESN'T KNOW MEDICAL HISTORY MOTHER: , FROM [place], DOESN'T KNOW HER MEDICAL HISTORY SON(S): HEALTHY DAUGHTER(S): HIV 2 SON(S) , 1 DAUGHTER(S) . SOCIAL HISTORY GENERAL: TOBACCO USE ARE YOU A:CURRENT SMOKER HOW MANY CIGARETTES A DAY DO YOU SMOKE?6-10 DOWN FROM TWO PACKS/DAY ARE YOU INTERESTED IN QUITTING?READY TO QUIT COUNSELED THE PATIENT ON TOBACCO USE, CESSATION [id number]/22/2020 PREVIOUS QUIT ATTEMPTS?YES, WITHIN THE LAST 6 MONTHS. LATEX QUESTIONNAIRE DATE ASKED : 09/01/2020 ALCOHOL SCREENING DID YOU HAVE A DRINK CONTAINING ALCOHOL IN THE PAST YEAR?YES HOW OFTEN DID YOU HAVE SIX OR MORE DRINKS ON ONE OCCASION IN THE PAST YEAR?NEVER (0 POINTS) HOW MANY DRINKS DID YOU HAVE ON A TYPICAL DAY WHEN YOU WERE DRINKING IN THE PAST YEAR?1 OR 2 (0 POINTS) HOW OFTEN DID YOU HAVE A DRINK CONTAINING ALCOHOL IN THE PAST YEAR?MONTHLY OR LESS (1 POINT) POINTS1 INTERPRETATIONNEGATIVE RECREATIONAL DRUG USE DRUG USE?NO CAFFEINE CAFFEINE USE?YES HOW OFTEN AND HOW MUCH? COFFEE 2-3 CUPS PER DAY DIET PEPSI 4 12 OX CANS PER DAY SABIANISM [id number] CONFUCIANISM LANGUAGE LANGUAGES SPOKEN:THAI EDUCATION LEVEL OF EDUCATION:NOT FINISHED HIGH SCHOOL LEARNING BARRIERS / SPECIAL NEEDS BARRIERS TO LEARNING?YES COMMENTS STATES IS SLOW TO COMPREHEND WRITTEN INFORMATION. HEARING IMPAIRED?NO VISION IMPAIRED?YES COGNITIVELY IMPAIRED?NO :CORRECTIVE LENSES READINESS TO LEARN?YES LEARNING PREFERENCES?YES :DEMONSTRATION/VERBAL INSTRUCTION LEARNING CAPABILITIES PRESENT?YES EMOTIONAL BARRIERS?NO SPECIAL DEVICES?YES ROLLING WALKER, PORTABLE OXYGEN 2 LMIN DURING NIGHT AND NEEDED. HEDIS SPECIALIST NEEDED?NO DOMESTIC VIOLENCE DO YOU FEEL SAFE IN YOUR ENVIRONMENT?YES OCCUPATION: DISABLED. DIET: REGULAR. EXERCISE: STATES EXERCISES DAILY AND WALKS ALSO.. MARITAL STATUS: .. OTHERS AT HOME: SON, SON'S RAIMUNDOE, 2 GRANDCHILDREN. NEW PATIENT PAIN DIARY TODAY'S VISIT 04/04/20 PATIENT DESCRIBES PAIN :IT COMES AND GOES, THROBBING, SHOOTING FROM 0-10, WHAT LEVEL IS YOUR PAIN TODAY?6 PRECIPITATING FACTORS LACK OF MEDS ALLEVIATING FACTORS MEDS IMPACT ON FUNCTION YES PAIN CLINIC PFS, CLERGY, PUBLIC HEALTH REFERRALS PFS REFERRAL NEEDED?NO CLERGY REFERRAL NEEDED?NO PUBLIC HEALTH REFERRAL NEEDED?NO WAS THE PROVIDER NOTIFIED OF ANY PERTINENT INFO?NO HAS THE PATIENT BEEN EDUCATED REGARDING HIS/HER PLAN OF CARE?YES HAS THE PATIENT BEEN EDUCATED REGARDING PAIN, THE RISK FOR PAIN, THE IMPORTANCE OF EFFECTIVE PAIN MANAGEMENT, AND THE PAIN ASSESSMENT PROCESS?YES HOUSING: STAYING IN SON'S HOUSE. WAITING FOR APARTMENT TO BECOME AVAILABLE.. ADVANCE DIRECTIVE ADVANCE DIRECTIVE DISCUSSED WITH PATIENT:YES HAS NO HEALTH CARE PROXY, INFORMATION GIVEN, DECLINES ASSISTANCE HOSPITALIZATION/MAJOR DIAGNOSTIC PROCEDURE CHILDBIRTH PNEUMONIA X 2 SURGERIES REVIEW OF SYSTEMS CONSTITUTIONAL: ANY RECENT FEVER NO . CHILLS NO . WEIGHT CHANGE OF UNKNOWN REASONS NO . GASTROENTEROLOGY: NEW UNEXPLAINABLE CHANGES IN BOWEL CONTROL NO . CONSTIPATION NO . GENITOURINARY: ANY NEW CHANGE IN BLADDER CONTROL? NO . NEUROLOGY: NEW ONSET DIZZINESS OR NEUROLOGICAL CHANGES NOT MENTIONED NO . NEW NUMBNESS OR PAIN PATTERNS NOT MENTIONED AND PERTINENT TO TODAY'S VISIT NO . CARDIOLOGY: NEW CHEST PRESSURE NO . NEW CHEST PAIN NO . RESPIRATORY: UNEXPLAINABLE COUGH NO . NEW SHORTNESS OF BREATH NO . VITAL SIGNS WT 302.8 LBS, HT 72 IN, BMI 41.06 INDEX, BP 136/84 MM HG, HR 61 /MIN, RR 18 /MIN, TEMP 96.0 F, OXYGEN SAT % 98%, NA INITIALS AW 1058. EXAMINATION GENERAL EXAMINATION: GENERALNO ACUTE DISTRESS, WELL NOURISHED AND HYDRATED. PSYCHAPPROPRIATE MOOD AND AFFECT . LUNGS:LUNG SOUNDS DECREASED BILATERALLY. HEART:NO MURMURS, REGULAR RATE AND RHYTHM. ASSESSMENTS PAIN IN LEFT FOOT - M79.672 (PRIMARY) TREATMENT PAIN IN LEFT FOOT REFILL HYDROCODONE-ACETAMINOPHEN TABLET, 7.5-325 MG, 1 TAB, ORALLY FOR PAIN, EVERY 8 HOURS NEEDED MDD3, 30 DAYS, 90, REFILLS 0 START NICOTINE PATCH 24 HOUR, 21 MG/24HR, 1 PATCH TO SKIN, TRANSDERMAL, ONCE A DAY, 30 DAY(S), 30 CLINICAL NOTES: 60-YEAR-OLD FEMALE IN FOR CHRONIC PAIN FOLLOW-UP. GIVEN PRESENTING SYMPTOMS RECOMMENDED CONTINUATION CURRENT MEDICATION REGIMEN WITH FOLLOW-UP IN 3 MONTHS. PATIENT HAS EXPRESSED UNDERSTANDING OF AND WAS IN AGREEMENT WITH TREATMENT PLAN. GIVEN TIME TO ASK QUESTIONS AND EXPRESS CONCERNS. , ISTOP REGISTRY REVIEWED AND DEMONSTRATES COMPLLIANCE. (REF # [id number] ) BRINGS IN MEDICATIONS WHICH IS APPROPRIATE FOR WHAT WAS DISPENSED. RECENT URINE TOXICOLOGY REVIEWED. NO UNAUTHORIZED MEDICATIONS. NO ILLICIT SUBSTANCES AND PRESCRIBED MEDICATIONS WERE PRESENT. PREVENTIVE MEDICINE PAIN CLINIC TEACHING: THE PATIENT HAS BEEN EDUCATED REGARDING PAIN, THE RISK FOR PAIN, THE IMPORTANCE OF EFFECTIVE PAIN MANAGEMENT, AND THE PAIN ASSESSMENT PROCESS. : MEDICATION REVIEW WAS DONE WITH THE PATIENT. THE PATIENT ACKNOLEDGED UNDERSTANDING FOR HER PLAN OF CARE - BASHIR AMBROCIO SCRUM COACH PROCEDURE CODES FA211 ESTABILISHED PATIENT [facility] FACILITY CHARGE DISPOSITION & COMMUNICATION FOLLOW UP 3 MONTHS (REASON: LEFT FOOT PAIN) ELECTRONICALLY SIGNED BY ROMAN KOVACS ON 09/04/2020 AT 09:12 AM EDT DISCLAIMER : THIS IS A VISIT SUMMARY EXTRACTED FROM THE [employer] CHART. IT IS NOT A COPY OF THE [employer] PROGRESS NOTE. DA
== END ==
LOC: M PAIN 10:30
PROVIDERS: ATTEND Family Medicine
DX: M79.672 Pain in left foot (principal); G89.29 Other chronic pain; I10 Essential (primary) hypertension; E11.9 Type 2 diabetes mellitus without complications; J44.9 Chronic obstructive pulmonary disease, unspecified; K21.9 Gastro-esophageal reflux disease without esophagitis; E78.5 Hyperlipidemia, unspecified; F17.210 Nicotine dependence, cigarettes, uncomplicated; Z86.14 Personal history of Methicillin resistant Staphylococcus aureus infection; Z86.59 Personal history of other mental and behavioral disorders; Z88.0 Allergy status to penicillin; E66.01 Morbid (severe) obesity due to excess calories; Z68.41 Body mass index [BMI] 40.0-44.9, adult; Z79.84 Long term (current) use of oral hypoglycemic drugs; Z79.899 Other long term (current) drug therapy

== ENCOUNTER 2020-10-24 09:13 | Emergency (ER) | payer MEDICAID, OTHER ==
[~2020-10-24] VITALS: Ht 177.8 cm; Wt 136.4 kg
[2020-10-24 10:25] LABS: BASO % 0.3 % (0.0-1.0); EOS # 0.2 10^3/uL (0.0-0.5); EOS % 2.7 % (0.0-3.0); HEMATOCRIT 43.8 % (36.0-47.0); HEMOGLOBIN 13.1 g/dl (12.0-15.5); LYMPH # 1.4 10^3/uL (1.5-5.0); LYMPH % 19.6 % (24.0-44.0); MEAN CORPUSCULAR HGB CONC 29.9 g/dl (32.0-36.5); MEAN CORPUSCULAR VOLUME 90.3 fl (80.0-96.0); MONO # 0.4 10^3/uL (0.0-0.8); MONO % 5.9 % (0.0-5.0); NEUTROPHILS # 4.9 10^3/uL (1.5-8.5); NEUTROPHILS % 71.2 % (36.0-66.0); PLATELET COUNT, AUTOMATED 176 10^3/uL (150-450); RED BLOOD COUNT 4.85 10^6/uL (4.00-5.40); WHITE BLOOD COUNT 6.9 10^3/uL (4.0-10.0)
--- NOTE | 2020-10-24 11:36 | REP ---
INDICATION: DYSPNEA/COUGH COMPARISON: None. TECHNIQUE: Portable AP view of the chest FINDINGS: The mediastinum and cardiac silhouette are stable and within normal limits for portable technique. The lung mercado are clear without acute consolidation, effusion, or pneumothorax. Skeletal structures are intact. IMPRESSION: No acute cardiopulmonary process appreciated. <Electronically signed by Braulio Nino > 10/24/20 6050
[2020-10-24] MEDS ORDERED: ISOVUE-370 76% 100ML VIAL As Ordered ONE ×2 (11:37→11:42)
--- NOTE | 2020-10-24 12:23 | REP ---
INDICATION: chest pain COMPARISON: None. TECHNIQUE: Axial contrast enhanced images from the thoracic inlet to the upper abdomen using pulmonary embolus technique with multiplanar re-formations. 75 ml Isovue 370 intravenous contrast material administered without complication. This CT examination was performed using the following dose reduction techniques: Automated exposure control, adjustment of mA and/or kv according to the patient's size, and use of iterative reconstruction technique. FINDINGS: Evaluation is limited by moderate respiratory motion artifact. Satisfactory enhancement of the pulmonary vasculature is achieved and no obvious filling defects are identified to suggest pulmonary embolus. Further evaluation of the mediastinum demonstrates normal thoracic aorta, heart and pericardium. The bilateral lung mercado are well aerated and essentially clear without consolidation, pleural effusion or pneumothorax. Tracheobronchial tree is patent. No adenopathy noted. Surrounding musculoskeletal structures intact. Upper abdomen demonstrates 2.8 cm left adrenal adenoma. IMPRESSION: No evidence for pulmonary embolus. No acute mediastinal or pleural parenchymal process. <Electronically signed by Braulio Nino > 10/24/20 [id number]
[2020-10-24] MEDS ORDERED: IPRATROPIUM 0.5MG/ALBUTEROL 2.5MG INH SOL UD 3ML (DUONEB) NEB PRN (13:00)
[2020-10-24] MEDS ORDERED: FLON27.5 NARES (14:05)
[2020-10-24] MEDS ORDERED: PRED50TA PO (14:16)
[2020-10-24] MEDS ORDERED: AFRI0.058 (14:20)
[2020-10-24 15:42] VITALS: BP 142/90
--- NOTE | 2020-10-24 22:10 | ECGEPIP ---
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
== END 2020-10-24 15:45 | disposition home or self-care (01) ==
LOC: M ED 09:13
DX: J06.9 Acute upper respiratory infection, unspecified (principal); J44.1 Chronic obstructive pulmonary disease with (acute) exacerbation; I10 Essential (primary) hypertension; G47.30 Sleep apnea, unspecified; F32.9 Major depressive disorder, single episode, unspecified; F17.200 Nicotine dependence, unspecified, uncomplicated; Z88.0 Allergy status to penicillin
CPT/HCPCS: 36415; 71045; 71275; 80047; 85025; 93005; 93041; 94760; 99285; Q9967; U0002

== ENCOUNTER → 2020-12-26 | Outpatient (CLI) | payer OTHER, MEDICAID ==
--- NOTE | 2020-12-28 04:53 | ECWPNPC ---
PATIENT NAME: LUIS CANTRELL : 1960 GENDER: FEMALE VISIT DATE: 12/26/2020 DISCHARGE DATE: 12/26/20 1149 VISIT LOCKED DATE TIME: PHYSICIAN: RIK DIAZ RESOURCE: RIK DIAZ REASON FOR APPOINTMENT 1. LEFT FOOT HISTORY OF PRESENT ILLNESS GENERAL: -60-YEAR-OLD FEMALE IN FOR CHRONIC PAIN FOLLOW-UP. SHE RATES HER PAIN CURRENTLY AT AN 8 OUT OF 10 AND DESCRIBES IT ACHING, BURNING, THROBBING, AND SHOOTING. SHE FEELS HER MEDICATIONS ARE HELPFUL AND DENIES MED SIDE EFFECTS AT THIS TIME. SHE DOES ADMIT TO INTERMITTENT SPIKES IN PAIN RELATED TO THE WEATHER. FALL RISK SCREENING: SCREENING :NO FALLS REPORTED IN THE LAST YEAR PAIN SCREENING: PATIENT HAS A COMPLAINT OF ACUTE OR CHRONIC PAIN :YES LOCATION OF PAIN:LEG(S) LEFT LEG INTENSITY OF PAIN (SCALE OF 1 TO 10):8 WHAT DOES YOUR PAIN FEEL LIKE:ACHING, BURNING, THROBBING, SHOOTING DURATION:CONTINOUS, CONSTANT, ALL DAY PAIN IS INCREASED BY:ACTIVITIES PAIN IS DECREASED BY:USE OF PAIN MEDICATIONS TREATMENT/MEDICATIONS USED TO MANAGE PAIN:OPIOIDS LEVEL OF RELIEF FROM PAIN TREATMENTS IN THE PAST:50% PAIN HAS INTERFERED WITH THE FOLLOWING:BATHING/DRESSING, WALKING ABILITY, SLEEP NURSING NOTE: -. PAIN CENTER INTAKE QUESTIONS: DO YOU HAVE A HISTORY OF MRSA? :YES YES ABOUT 7 YEARS AGAO, IT WAS ON HER CHIN DO YOU TAKE A BLOOD THINNERS? :NO DO YOU HAVE ANY BLEEDING DISORDERS? :NO ANY NEW NUMBNESS OR WEAKNESS IN YOUR LEGS OR ARMS? :NO ANY PACEMAKER,DEFIBRILLATOR, OR DORSAL COLUMN STIMULATOR? :NO DO YOU HAVE ANY RASHES OR OPEN SORES? :YES LEFT FOOT OPEN SORE ARE YOU ALLERGIC TO IV DYE? :NO ARE YOU DIABETIC? :YES ANY NEW PROBLEMS WITH YOUR MEDICATIONS? :NO HAVE YOU RECEIVED A VACCINE IN THE PAST 30 DAYS? :NO DO YOU PLAN TO RECEIVE A VACCINE IN THE NEXT 21 DAYS? :NO DO YOU NEED ANY PRESCRIPTION? :YES HYDROCODONE 7.5 /325 X3 A DAY DO YOU TAKE ANY IMMUNOSUPPRESSIVE MEDICATIONS? :NO IS THERE A CHANCE YOU COULD BE ? :NO ARE YOU BREAST FEEDING? :NO CURRENT MEDICATIONS TAKING PEPCID 20 MG TABLET 1 TAB ORALLY TWICE DAILY TAKING VESICARE 10 MG TABLET 1 TABLET ORALLY ONCE A DAY TAKING OXYGEN 2 L/MIN VIA NC NEEDED TAKING PROAIR HFA 108 (90 BASE) MCG/ACT AEROSOL SOLUTION 2 PUFFS NEEDED INHALATION QID PRN TAKING QUETIAPINE FUMARATE ER 400 MG TABLET EXTENDED RELEASE 24 HOUR 1 TABLET IN THE EVENING ORALLY TWICE DAILY TAKING ATORVASTATIN CALCIUM 40 MG TABLET 1 TABLET ORALLY ONCE A DAY TAKING LISINOPRIL 40 MG TABLET 1 TABLET ORALLY ONCE A DAY TAKING METFORMIN HCL 850 MG TABLET 1 TABLET WITH A MEAL ORALLY TWICE DAILY TAKING AMLODIPINE BESYLATE 10 MG TABLET 1 TABLET ORALLY ONCE A DAY TAKING METOPROLOL SUCCINATE 50 MG CAPSULE ER 24 HOUR SPRINKLE 1 CAPSULE ORALLY ONCE A DAY TAKING ZOLOFT 50 MG TABLET 1 TABLET ORALLY ONCE A DAY TAKING PANTOPRAZOLE SODIUM 40 MG TABLET DELAYED RELEASE 1 TABLET ORALLY ONCE A DAY TAKING GABAPENTIN 300 MG CAPSULE 1 CAPSULE ORALLY THREE TIMES DAILY TAKING CLOBETASOL PROPIONATE 0.05 % CREAM 1 APPLICATION EXTERNALLY TWICE A DAY TAKING FLONASE ALLERGY RELIEF 50 MCG/ACT SUSPENSION 1 SPRAY IN EACH NOSTRIL NASALLY ONCE A DAY TAKING ZOLOFT 25 MG TABLET 1 TABLET ORALLY ONCE A DAY TAKING IRON 325 (65 FE) MG TABLET 1 TABLET ORALLY ONCE A DAY TAKING ACETAMINOPHEN EXTRA STRENGTH 500 MG TABLET 2 TABLET NEEDED ORALLY TWICE DAILY TAKING NICOTINE 21 MG/24HR PATCH 24 HOUR 1 PATCH TO SKIN TRANSDERMAL ONCE A DAY TAKING HYDROCODONE-ACETAMINOPHEN 7.5-325 MG TABLET 1 TAB ORALLY FOR PAIN EVERY 8 HOURS NEEDED MDD3 NOT-TAKING CLONAZEPAM 1 MG TABLET 1/2 TABLET ORALLY BID NOT-TAKING VITAMIN D (ERGOCALCIFEROL) 1.25 MG ([id number] UT) CAPSULE 1 CAPSULE ORALLY WEEKLY MEDICATION LIST REVIEWED AND RECONCILED WITH THE PATIENT ALLERGIES NO[ALLERGIES VERIFIED] SOCIAL HISTORY GENERAL: TOBACCO USE ARE YOU A:CURRENT SMOKER ARE YOU INTERESTED IN QUITTING?READY TO QUIT PREVIOUS QUIT ATTEMPTS?YES, WITHIN THE LAST 6 MONTHS. COUNSELED THE PATIENT ON TOBACCO USE, CESSATION [id number]/26/2021 HOW MANY CIGARETTES A DAY DO YOU SMOKE?6-10 DOWN FROM TWO PACKS/DAY LATEX QUESTIONNAIRE LATEX ALLERGY : HAVE YOU EVER DEVELOPED ANY TYPE OF REACTION AFTER HANDLING LATEX PRODUCTS SUCH RUBBER GLOVES, CONDOMS, DIAPHRAGMS, BALLOONS, SOCKS, OR UNDERWEAR?NO LATEX ALLERGY : HAVE YOU EVER DEVELOPED ANY TYPE OF REACTION DURING OR AFTER DENTAL APPOINTMENT, VAGINAL/RECTAL EXAMINATION, SURGICAL PROCEDURE, OR ANY OTHER EXPOSURE?NO LATEX RISK : HAVE YOU EVER HAD ANY DIFFICULTY BREATHING OR HIVES AFTER EATING OR HANDLING ANY FRUITS, OR VEGETABLES; SUCH KIWI, BANANAS, STONE FRUITS, OR CHESTNUTSNO LATEX RISK : DO YOU HAVE A PREVIOUS PERSONAL HISTORY OF MORE THAN NINE SURGERIES, SPINA BIFIDA, OR REPEATED CATHERIZATIONS? NO LATEX RISK : ARE YOU FREQUENTLY EXPOSED TO LATEX PRODUCTS IN YOUR OCCUPATION?NO DATE ASKED : 09/01/2020 ALCOHOL USE: NO. ALCOHOL SCREENING DID YOU HAVE A DRINK CONTAINING ALCOHOL IN THE PAST YEAR?YES HOW OFTEN DID YOU HAVE SIX OR MORE DRINKS ON ONE OCCASION IN THE PAST YEAR?NEVER (0 POINTS) HOW MANY DRINKS DID YOU HAVE ON A TYPICAL DAY WHEN YOU WERE DRINKING IN THE PAST YEAR?1 OR 2 (0 POINTS) HOW OFTEN DID YOU HAVE A DRINK CONTAINING ALCOHOL IN THE PAST YEAR?MONTHLY OR LESS (1 POINT) POINTS1 INTERPRETATIONNEGATIVE RECREATIONAL DRUG USE DRUG USE?NO CAFFEINE CAFFEINE USE?YES HOW OFTEN AND HOW MUCH? COFFEE 2-3 CUPS PER DAY DIET PEPSI 4 12 OX CANS PER DAY CONGREGATION [id number] YAZIDI LANGUAGE LANGUAGES SPOKEN:SWISS EDUCATION LEVEL OF EDUCATION:NOT FINISHED HIGH SCHOOL LEARNING BARRIERS / SPECIAL NEEDS BARRIERS TO LEARNING?YES COMMENTS STATES IS SLOW TO COMPREHEND WRITTEN INFORMATION. HEARING IMPAIRED?NO VISION IMPAIRED?YES :CORRECTIVE LENSES COGNITIVELY IMPAIRED?NO READINESS TO LEARN?YES LEARNING PREFERENCES?YES :DEMONSTRATION/VERBAL INSTRUCTION LEARNING CAPABILITIES PRESENT?YES EMOTIONAL BARRIERS?NO SPECIAL DEVICES?YES ROLLING WALKER, PORTABLE OXYGEN 2 LMIN DURING NIGHT AND NEEDED. 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 DIET: REGULAR. EXERCISE: STATES EXERCISES DAILY AND WALKS ALSO.. MARITAL STATUS: .. OTHERS AT HOME: SON, SON'S FIANCEE, 2 GRANDCHILDREN. TODAY'S VISIT 04/04/20 PATIENT DESCRIBES PAIN :IT COMES AND GOES, THROBBING, SHOOTING FROM 0-10, WHAT LEVEL IS YOUR PAIN TODAY?6 PRECIPITATING FACTORS LACK OF MEDS ALLEVIATING FACTORS MEDS IMPACT ON FUNCTION YES - PFS REFERRAL NEEDED?NO CLERGY REFERRAL NEEDED?NO PUBLIC HEALTH REFERRAL NEEDED?NO WAS THE PROVIDER NOTIFIED OF ANY PERTINENT INFO?NO HAS THE PATIENT BEEN EDUCATED REGARDING HIS/HER PLAN OF CARE?YES HAS THE PATIENT BEEN EDUCATED REGARDING PAIN, THE RISK FOR PAIN, THE IMPORTANCE OF EFFECTIVE PAIN MANAGEMENT, AND THE PAIN ASSESSMENT PROCESS?YES HOUSING: STAYING IN SON'S HOUSE. WAITING FOR APARTMENT TO BECOME AVAILABLE.. ADVANCE DIRECTIVE ADVANCE DIRECTIVE DISCUSSED WITH PATIENT:YES HAS NO HEALTH CARE PROXY, INFORMATION GIVEN, DECLINES ASSISTANCE REVIEW OF SYSTEMS CONSTITUTIONAL: ANY RECENT FEVER NO . CHILLS NO . WEIGHT CHANGE OF UNKNOWN REASONS NO . GASTROENTEROLOGY: NEW UNEXPLAINABLE CHANGES IN BOWEL CONTROL NO . CONSTIPATION NO . GENITOURINARY: ANY NEW CHANGE IN BLADDER CONTROL? NO . NEUROLOGY: NEW ONSET DIZZINESS OR NEUROLOGICAL CHANGES NOT MENTIONED NO . NEW NUMBNESS OR PAIN PATTERNS NOT MENTIONED AND PERTINENT TO TODAY'S VISIT NO . CARDIOLOGY: NEW CHEST PRESSURE NO . NEW CHEST PAIN NO . RESPIRATORY: UNEXPLAINABLE COUGH NO . NEW SHORTNESS OF BREATH NO . VITAL SIGNS WT 325 LBS, HT 72 IN, BMI 44.07 INDEX, BP 147/92 MM HG, HR 92 /MIN, RR 18 /MIN, TEMP 97.6 F, OXYGEN SAT % 96, SAFE IN ENV? (Y/N) YEST.SAIMA MAYBERRY. EXAMINATION GENERAL EXAMINATION: GENERALNO ACUTE DISTRESS, WELL NOURISHED AND HYDRATED. PSYCHAPPROPRIATE MOOD AND AFFECT . LUNGS:CLEAR TO AUSCULTATION BILATERALLY, NO WHEEZES, RHONCHI, RALES. HEART:NO MURMURS, REGULAR RATE AND RHYTHM. ASSESSMENTS PAIN IN LEFT FOOT - M79.672 (PRIMARY), RISK: (NULL) PIECER UP (CURRENT) USE OF OPIATE ANALGESIC - Z79.891 TREATMENT PAIN IN LEFT FOOT LAB: PAIN CENTER URINE TOX (SEND OUT) NOTES: 60-YEAR-OLD FEMALE IN FOR CHRONIC PAIN FOLLOW-UP. GIVEN PRESENTING SYMPTOMS RECOMMENDED CONTINUATION OF CURRENT MEDICATION REGIMEN WITH FOLLOW-UP IN 3 MONTHS. PATIENT HAS EXPRESSED UNDER SENDING OF WAS IN AGREEMENT WITH TREATMENT PLAN. GIVEN TIME TO ASK QUESTIONS AND EXPRESS CONCERNS. , ISTOP REGISTRY REVIEWED AND DEMONSTRATES COMPLLIANCE. (REF # [id number] ) BRINGS IN MEDICATIONS WHICH IS APPROPRIATE FOR WHAT WAS DISPENSED. RECENT URINE TOXICOLOGY REVIEWED. NO UNAUTHORIZED MEDICATIONS. NO ILLICIT SUBSTANCES AND PRESCRIBED MEDICATIONS WERE PRESENT. OTHERS REFILL HYDROCODONE-ACETAMINOPHEN TABLET, 7.5-325 MG, 1 TAB, ORALLY FOR PAIN, EVERY 8 HOURS NEEDED MDD3, 30 DAYS, 90, REFILLS 0 REFILL GABAPENTIN CAPSULE, 300 MG, 1 CAPSULE, ORALLY, THREE TIMES DAILY, 30 DAY(S), 90, REFILLS 1 PROCEDURE CODES FA211 ESTABILISHED PATIENT [facility] FACILITY CHARGE DISPOSITION & COMMUNICATION FOLLOW UP 3 MONTHS (REASON: FOOT PAIN ) ELECTRONICALLY SIGNED BY ROMAN KOVACS ON 12/27/2020 AT 12:55 PM EST DISCLAIMER : THIS IS A VISIT SUMMARY EXTRACTED FROM THE [employer] CHART. IT IS NOT A COPY OF THE [employer] PROGRESS NOTE. DA
== END ==
LOC: M PAIN 11:00
PROVIDERS: ATTEND Family Medicine
DX: M79.672 Pain in left foot (principal); E11.9 Type 2 diabetes mellitus without complications; F17.210 Nicotine dependence, cigarettes, uncomplicated; Z79.84 Long term (current) use of oral hypoglycemic drugs; Z79.891 Long term (current) use of opiate analgesic; Z79.899 Other long term (current) drug therapy

== ENCOUNTER 2021-02-09 08:33 | Inpatient (IN) | payer MEDICAID, OTHER ==
[~2021-02-09] VITALS: Ht 177.8 cm; Wt 155.7 kg
[2021-02-09] MEDS ORDERED: methylPREDNISolone 125MG 2ML VIAL IV ONE (09:00)
[2021-02-09] MEDS: COMBIVENT RESPIMAT 100-20MCG INHALER 4GM INH SCH ×3 (09:02→09:53)
--- NOTE | 2021-02-09 09:19 | REP ---
INDICATION: DYSPNEA/COUGH. COMPARISON: 10/24/2020. TECHNIQUE: SINGLE PORTABLE AP VIEW OF THE CHEST WAS PERFORMED. FINDINGS: There is mild cardiomegaly. There is mild pulmonary venous hypertension. There is no infiltrate identified. There is stable mild elevation of the right hemidiaphragm. The mediastinal silhouette is unchanged. IMPRESSION: Mild cardiomegaly. No acute infiltrate. <Electronically signed by Ismael Gtz > 02/09/21 0915
[2021-02-09 09:33] LABS: BASO % 0.5 % (0.0-1.0); EOS # 0.2 10^3/uL (0.0-0.5); EOS % 2.5 % (0.0-3.0); HEMATOCRIT 37.9 % (36.0-47.0); HEMOGLOBIN 11.4 g/dl (12.0-15.5); LYMPH # 1.5 10^3/uL (1.5-5.0); MEAN CORPUSCULAR HEMOGLOBIN 27.9 pg (27.0-33.0); MEAN CORPUSCULAR HGB CONC 30.1 g/dl (32.0-36.5); MEAN CORPUSCULAR VOLUME 92.7 fl (80.0-96.0); MONO # 0.4 10^3/uL (0.0-0.8); MONO % 6.5 % (2.0-8.0); PLATELET COUNT, AUTOMATED 200 10^3/uL (150-450); RED BLOOD COUNT 4.09 10^6/uL (4.00-5.40); WHITE BLOOD COUNT 6.1 10^3/uL (4.0-10.0)
[2021-02-09] MEDS ORDERED: TRIA1OI TOP (09:51)
[2021-02-09] MEDS ORDERED: INCR1INH INH (09:51)
[2021-02-09] MEDS ORDERED: IBUP80TA PO (09:51)
[2021-02-09] MEDS ORDERED: ALBU8.5H INH (09:51)
[2021-02-09] MEDS ORDERED: FAMO1TAB11 PO (09:51)
[2021-02-09] MEDS ORDERED: SERT25TA21 PO (09:51)
[2021-02-09] MEDS ORDERED: METF850T4 PO (09:51)
[2021-02-09] MEDS ORDERED: AMMO12LO TOP (09:51)
[2021-02-09] MEDS ORDERED: GABA-282 PO (09:51)
[2021-02-09] MEDS ORDERED: AMLO1TAB25 PO (09:51)
[2021-02-09] MEDS ORDERED: HYDR-3716 PO (09:51)
[2021-02-09] MEDS ORDERED: QUET400T42 PO (09:51)
[2021-02-09] MEDS ORDERED: PANT40TA29 PO (09:51)
[2021-02-09] MEDS ORDERED: FLUT1INH2 INH (09:51)
[2021-02-09] MEDS ORDERED: SERT50TA29 PO (09:51)
[2021-02-09] MEDS ORDERED: LISI40TA4 PO (09:51)
[2021-02-09] MEDS ORDERED: OXYB15TA14 PO (09:51)
[2021-02-09] MEDS ORDERED: METO1TAB7 PO (09:51)
[2021-02-09 10:00] LABS: ALBUMIN 3.4 GM/DL (3.2-5.2); ALT/SGPT 17 U/L (12-78); BILIRUBIN,DIRECT 0.1 MG/DL (0.0-0.2); BILIRUBIN,TOTAL 0.3 MG/DL (0.2-1.0); BLOOD UREA NITROGEN 12 MG/DL (7-18); CALCIUM LEVEL 8.5 MG/DL (8.8-10.2); CARBON DIOXIDE LEVEL 35 MEQ/L (21-32); CHLORIDE LEVEL 104 MEQ/L (98-107); CK-MB VALUE MASS < 1.0 NG/ML (<3.6); CPK CREATINE PHOSPHOKINASE 64 U/L (26-192); GLOMERULAR FILTRATION RATE > 60.0 (>45); GLUCOSE, FASTING 103 MG/DL (70-100); MB/CK RELATIVE INDEX 1.56 (< OR =4); NT-PRO BNP 1357 PG/ML (<125); POTASSIUM SERUM 4.3 MEQ/L (3.5-5.1); SODIUM LEVEL 142 MEQ/L (136-145); THYROXINE (T4) 6.3 UG/DL (4.5-12.0); TOTAL PROTEIN 6.6 GM/DL (6.4-8.2); TROPONIN I < 0.02 NG/ML (< 0.10)
[2021-02-09] MEDS ORDERED: IMIPENEM/CILASTATIN 500 MG in D5W MINI-BAG PLUS 100 ML IV ONE (10:20)
[2021-02-09] MEDS ORDERED: PERCOCET 5MG/325MG TAB PO ONE (11:50)
[2021-02-09] MEDS ORDERED: ACETAMINOPHEN TAB 650MG DOSE (2X325MG) PO PRN (11:55)
[2021-02-09] MEDS ORDERED: ALBUTEROL 90 MCG/ACT 8GM HFA INHALER INH PRN (12:05)
[2021-02-09] MEDS ORDERED: ISOVUE-370 76% 100ML VIAL As Ordered ONE (12:12)
[2021-02-09] MEDS ORDERED: GLUCOSE 4GM CHEW TABLET PO PRN (12:30)
[2021-02-09] MEDS ORDERED: GLUCAGON INJ 1MG VIAL SC PRN (12:30)
[2021-02-09] MEDS ORDERED: DEXTROSE 50% 50 ML SYRINGE IV PRN (12:30)
--- NOTE | 2021-02-09 12:38 | HPEPDOC ---
[facility] Medical History & Physical Date of Admission Feb 09, 2021 Date of Service: Feb 09, 2021 Attending Physician: Btey Jackson MD History and Physical CHIEF COMPLAINT: Left foot pain, swelling HISTORY OF PRESENT ILLNESS: Patient is a 60-year-old female with past medical history of chronic respiratory failure 2/2 to COPD- oxygen dependent on 2 L NC, morbid obesity, diabetes mellitus, hypertension, GERD, chronic lower lumbar back pain, overactive bladder, depression/anxiety who presented to [facility] emergency room after having several days of left medial foot pain and swelling. Patient states she has had surgery in the area of the arch many years ago in [place] and that area of scarring is very sensitive to opening up and ulcerating if shoes are not fitting properly. Several days ago she noticed an open blister beginning and over the past several days began to weep and pus has started to drain from it. She says the redness was isolated to the area around ulcer and due to not impr oving at home, she came to the emergency room to get further evaluated. She denies fevers, chills, nausea, vomiting, diarrhea, cough, abdominal pain. She does not follow with a electronic warfare specialist in local area. She admits to having regular shortness of breath but nothing more than her ordinary, occasional chest pain which she says radiates across anterior chest, 2/10 in intensity when present, intermittent more so with activity, does not radiate to the neck or down the arm. She states she also has occasional palpitations as well. In the emergency room, vital signs showed she was initially 85% on room air on 2 L nasal cannula she was 96%. Her heart rate varied between 651 05, atrial fibrillation with RVR on ECG. The patient has no documented history of atrial fibrillation and this is believed to be new onset. WBC was within normal limits, CO2 35 and likely chronically elevated. BNP 1357, troponin negative. Chest x-ray showed cardiomegaly but no acute infection. The left medial foot around the arch had an open ulcer draining, wound culture was collected. The patient's does not have a harmonica maker and does not have transportation aside from her house around which she used to come to the emergency room. She also has not established with a electronic warfare specialist in the local area to quickly evaluate her ulcer. The patient was admitted for further evaluation of her left foot ulcer, cellulitis and further evaluation of atrial fibrillation with RVR. REVIEW OF SYSTEMS: Neg except for what is mentioned above PAST MEDICAL HISTORY: chronic respiratory failure 2/2 to COPD- oxygen dependent on 2 L nasal cannula, morbid obesity, diabetes mellitus, hypertension, GERD, chronic lower lumbar back pain, overactive bladder, depression, anxiety PAST SURGICAL HISTORY: Left foot surgery with hardware placed cholecystectomy partial hysterectomy teeth extractions FAMILY HISTORY: Father: at unknown age Mother: in MVA when young. at 42 y/o SOCIAL HISTORY: Prior smoker for 40 years 2 PPD, quit 30 days ago- uses lozenges. Drinks alcohol occasionally. Used to use drugs (i.e cocaine) regularly but quit 14 months ago. Uses Hover[employer] wheelchair to ambulate mostly. Lives alone currently. PCP- Denton Silverio, follows with dermatology in [place]. DNR with trial intubation. ALLERGIES: Please see below. HOME MEDICATIONS: Please see below. PHYSICAL EXAMINATION: VS: Please see below CONSTITUTIONAL: No acute distress, resting comfortably, AAO x 3 EYES: PERRLA, EOM intact HENT, MOUTH: Normocephalic, atraumatic, moist mucous membranes, NC in place NECK: large diameter, SUPPLE, no JVD, no lymphadenopathy, no carotid bruit CV: irregularly irregular rhythm, S1S2 normal, no murmurs/rubs/gallops RESPIRATORY: decreased breath sounds bilaterally, no rales/rhonchi/wheezes GI: BS positive in 4 quadrants, soft, nontender, nondistended, no rebound or guarding, no organomegaly : Deferred MUSCULOSKELETAL: Normal ROM. No cyanosis, clubbing, joint deformity, extremity edema INTEGUMENTARY: left foot medial ulcer around area of arch, draining/weeping pustulant fluid, mild cellulitis around this area. Very dry skin in the lower ext. No rashes NEUROLOGIC: Cranial Nerves II-XII are intact, no focal deficits PSYCHIATRIC: Mood and affect are normal LABORATORY DATA: Please see below IMAGING: CXR: CM, no acute infection Left foot XR: pending ASSESSMENT: 60-year-old female with past medical history of chronic respiratory failure 2/2 to COPD- oxygen dependent on 2 L nasal cannula, morbid obesity, diabetes mellitus, hypertension, GERD, chronic lower lumbar back pain, overactive bladder, depression/anxiety admitted for further evaluation of her left foot ulcer, cellulitis and further evaluation of atrial fibrillation with RVR. PLAN: Atrial fibrillation with RVR, intermittent chest pain r/o PE -HR 105, intermittent chest discomfort, + palpitations, new onset afib -No previously on AC -F/u CTA chest, echocardiogram, cycle troponins -C/w BB and can increase if needed, started on eliquis BID, tele Left foot ulcer, recurrent in area where prior surgery occurred -WBC wnl, afebrile -Wound culture collected by ER -F/u XR of left foot -Podiatry consulted Chronic hypoxic respiratory failure 2/2 to COPD, O2 dependent -Currently saturating well on 2 L NC, home amount -CXR above -F/u CTA chest -C/w home meds DM type II -BS currently stable -F/u lipid panel, HbA1c -Hold metformin -ISS, FS AC/HS, consistent carb diet HTN -Elevated in ER initially to 180's mmHg systolic but improved -C/w home medications -2 gm sodium diet Overactive bladder -C/w home med Chronic lumbar back pain -Stable -C/w home meds GERD -PPI DVT px -Eliquis BID DISPOSITION: Admitted for further workup above. F/u podiatry recommendations, can consult cardiology if needed. Plan is discharge home when medically improved. Vital Signs Vital Signs Date Time Temp Pulse Resp B/P (MAP) Pulse Ox O2 Delivery O2 Flow Rate FiO2 02/09/21 11:55 18 02/09/21 11:46 95 158/98 (118) 95 Nasal Cannula 2.0 02/09/21 08:41 98.0 Laboratory Data Labs 24H Laboratory Tests 2 02/09/21 09:07: Immature Granulocyte % (Auto) 0.5, Neutrophils (%) (Auto) 66.0, Lymphocytes (%) (Auto) 24.0, Monocytes (%) (Auto) 6.5, Eosinophils (%) (Auto) 2.5, Basophils (%) (Auto) 0.5, Neutrophils # (Auto) 4.0, Lymphocytes # (Auto) 1.5, Monocytes # (Auto) 0.4, Eosinophils # (Auto) 0.2, Basophils # (Auto) 0.0, Nucleated Red Blood Cells % (auto) 0.0, Anion Gap 3L, Glomerular Filtration Rate > 60.0, Lactic Acid Level 1.6, Calcium Level 8.5L, Total Bilirubin 0.3, Direct Bilirubin 0.1, Aspartate Amino Transf (AST/SGOT) 10, Alanine Aminotransferase (ALT/SGPT) 17, Alkaline Phosphatase 93, Total Creatine Kinase 64, Creatine Kinase MB < 1.0, Creatine Kinase MB Relative Index 1.56, Troponin I < 0.02, AJ-Hrt-W-Type Natriuretic Peptide 1357H, Total Protein 6.6, Albumin 3.4, Albumin/Globulin Ratio 1.1L, Thyroid Stimulating Hormone (TSH) 2.340, Thyroxine (T4) 6.3 02/09/21 09:23: POC pH (Misc Panel) 7.371, POC Base Excess (Misc Panel) 9.0H, POC Saturated Percent O2 (Misc) 95, POC pO2 (Misc Panel) 82.0, POC pCO2 (Misc Panel) 59.2H, POC HCO3 (Misc Panel) 34.3H, POC Total CO2 (Misc Panel) 36.0H CBC/BMP Laboratory Tests 02/09/21 09:07 Microbiology Microbiology 02/09/21 Respiratory Virus Panel (PCR) ([facility]) - Final, Complete Home Medications Scheduled Amlodipine Besylate (Amlodipine Besylate) 10 Mg Tablet, 10 MG PO DAILY Ammonium Lactate (Ammonium Lactate) 12% Lotion, 1 APLCT TOP QHS APPLY TO FEET Famotidine (Famotidine) 20 Mg Tablet, 20 MG PO QHS Fluticasone Propion/Salmeterol (Fluticasone-Salmeterol 113-14) 1 Each Aer.pow.ba, 2 PUFFS INH BID Gabapentin (Gabapentin) 300 Mg Capsule, 300 MG PO TID Hydrocodone/Acetaminophen (Hydrocodone-Acetamin 7.5-325) 1 Each Tablet, 1 TAB PO Q8H Lisinopril (Lisinopril) 40 Mg Tablet, 40 MG PO DAILY Metformin HCl (Metformin HCl) 850 Mg Tablet, 850 MG PO BID Metoprolol Succinate (Metoprolol Succinate) 50 Mg Tab.er.24h, 50 MG PO DAILY Oxybutynin Chloride (Oxybutynin Chloride ER) 15 Mg Tab.er.24, 15 MG PO QHS Pantoprazole Sodium (Pantoprazole Sodium) 40 Mg Tablet.dr, 40 MG PO DAILY Quetiapine Fumarate (Quetiapine Fumarate ER) 400 Mg Tab.er.24h, 400 MG PO QHS Sertraline HCl (Sertraline HCl) 25 Mg Tablet, 25 MG PO DAILY TAKES WITH 50MG FOR TOTAL DOSE 75MG Sertraline HCl (Sertraline HCl) 50 Mg Tablet, 50 MG PO DAILY TAKES WITH 25MG FOR TOTAL DOSE 75MG Triamcinolone Acet (Triamcinolone Acetonide 0.1% Oint) 15 Gm Oint...g., 1 APLCT TOP BID MIX WITH CETAPHIL OR CEREVE AND APPLY TO AFFECTED AREAS ON BODY Umeclidinium Repton (Incruse Ellipta) 62.5 Mcg Blst.w.dev, 1 PUFF INH DAILY Scheduled PRN Albuterol Sulfate (Albuterol Sulfate Hfa) 8.5 Gm Hfa.aer.ad, 2 PUFFS INH QID PRN for SOB/WHEEZING Ibuprofen (Ibuprofen) 800 Mg Tablet, 800 MG PO BID PRN for PAIN Allergies Coded Allergies: Penicillins (Verified Allergy, Intermediate, UNKNOWN CHILDHOOD REACTION, 02/09/21) A-FIB/CHADSVASC A-FIB History Current/History of A-Fib/PAF?: Yes Current PO Anticoag Therapy: Yes Age/Risk Factor Scoring CHADSVASC: CHADSVASC Response (Comments) Value Age Risk Factor Age < 65 years old 0 Gender Risk Factor Female 1 Hx of CHF No 0 Hx of HTN Yes 1 Hx of Stroke/TIA/or VTE No 0 Hx of Diabetes Yes 1 Hx of Vascular Disease No 0 Total 3 Treatment Treatment ordered: Apixaban Bety Jackson MD Feb 09, 2021 12:38
--- NOTE | 2021-02-09 12:39 | REP ---
INDICATION: r/o PE, new onset atrial fib COMPARISON: 10/24/2020 TECHNIQUE: Axial contrast enhanced images from the thoracic inlet to the upper abdomen using pulmonary embolus technique with multiplanar re-formations. 75 ml Isovue 370 intravenous contrast material administered without complication. This CT examination was performed using the following dose reduction techniques: Automated exposure control, adjustment of mA and/or kv according to the patient's size, and use of iterative reconstruction technique. FINDINGS: Satisfactory enhancement of the pulmonary vasculature is achieved and no filling defects are identified to suggest pulmonary embolus. Further evaluation of the mediastinum demonstrates normal thoracic aorta, heart and pericardium. The lung mercado demonstrate very minimal basilar atelectasis (right greater than left). No effusion. No pneumothorax. Tracheobronchial tree is patent. Surrounding musculoskeletal structures intact IMPRESSION: No evidence for pulmonary embolus. No acute mediastinal or pleural parenchymal process. <Electronically signed by Braulio Nino > 02/09/21 [id number]
[2021-02-09 12:44] LABS: C REACTIVE PROTEIN QUANTITATIV 0.84 MG/DL (0.00-0.30)
--- NOTE | 2021-02-09 12:47 | REP ---
INDICATION: left foot ulcer, hx of surgery and hardware in foot COMPARISON: None. TECHNIQUE: AP and lateral views of the left foot. FINDINGS: Postsurgical changes with orthopedic fixation through the mid/hindfoot. Osteopenia and degenerative changes are appreciated. No evidence for acute fracture. No periosteal reaction. Overlying soft tissue swelling without subcutaneous emphysema or foreign body. IMPRESSION: Soft tissue swelling and degenerative changes. Evidence for prior orthopedic fixation. <Electronically signed by Braulio Nino > 02/09/21 1032
[2021-02-09 12:59] LABS: ERYTHROCYTE SEDIMENTATION RATE 16 mm/hr (0-30)
[2021-02-09 13:48] LABS: CHOLESTEROL LEVEL 125 MG/DL (<200); CHOLESTEROL RISK RATIO 2.155 (<5); HDL CHOLESTEROL 58 MG/DL (>40); LDL CHOLESTEROL 52 MG/DL (<100); NON-HDL-C 67 MG/DL; TRIGLYCERIDES LEVEL 77 MG/DL (<150); TROPONIN I < 0.02 NG/ML (< 0.10)
[2021-02-09 14:05] VITALS: BP 134/72
[2021-02-09 14:06] LABS: HEMOGLOBIN A1c 5.8 %
[2021-02-09] MEDS: ANEXSIA, NORCO 7.5MG/325MG TABLET(HYDROCODONE/APAP) PO SCH ×2 (15:09→22:50)
[2021-02-09] MEDS: GABAPENTIN 300 MG CAP PO SCH ×2 (15:10→20:30)
[2021-02-09] MEDS: NICOTINE 21MG/24HR 1 EA TRANSDERMAL TD SCH (15:12)
[2021-02-09] MEDS ORDERED: IMIPENEM/CILASTATIN 250 MG in D5W MINI-BAG PLUS 100 ML IV SCH (17:00)
[2021-02-09] MEDS: HumaLOG INSULIN (NovoLOG) PER UNIT SC SCH ×2 (18:35→20:31)
[2021-02-09] MEDS: IMIPENEM/CILASTATIN 500 MG in D5W MINI-BAG PLUS 100 ML IV SCH ×2 (18:35→22:49)
--- NOTE | 2021-02-09 18:49 | ECGEPIP ---
[facility] - ED Test Date: 2021-02-09 Pat Name: LUIS CANTRELL Department: Room: - Gender: Female Bobbin Marker: RANDY : 1960 Requested By: Mihir Melgar Order Number: [id number] Reading MD: Majo Stovall Measurements Intervals [place] Rate: 106 P: VT: QRS: 77 QRSD: 100 T: 23 QT: 360 QTc: 478 Interpretive Statements Atrial fibrillation with rapid ventricular response 10/24/20 sinus rhythm Electronically Signed on 02-09-2021 18:48:37 EST by Majo Stovall
[2021-02-09 20:15] VITALS: BP 141/88
[2021-02-09] MEDS ORDERED: METOPROLOL TART 25 MG TABLET PO ONE (20:15)
--- NOTE | 2021-02-09 20:19 | CR ---
CONSULTATION DATE: 02/09/2021 REASON FOR CONSULTATION: Left foot ulcer and swelling. HISTORY OF PRESENT ILLNESS: Sarah Vasquez is a pleasant 60-year-old female who arrived at the emergency room (ER) today due to worsening conditions of a left foot ulcer. Patient notes she has had surgery on this left foot, most recently last year down in [place]. She had history of what appears to be a triple arthrodesis. She states she initially had a surgery done and then had subsequent hardware removal and then needed a revisional with further metal hardware replaced. She is foggy on the details of these surgeries. She states if she wears the wrong shoes, the scar sites open up and become ulcers and this appears to be what happened within the last week. PAST MEDICAL HISTORY: Significant for: 1. Chronic obstructive pulmonary disease (COPD), oxygen dependent. 2. Morbid obesity. 3. Diabetes. 4. Hypertension. 5. Gastroesophageal reflux disease (GERD). 6. Lumbar back pain. 7. Overactive bladder. 8. Depression/anxiety. PAST SURGICAL HISTORY: Includes: 1. Left foot apparent triple arthrodesis. 2. Hind foot fusion with subsequent hardware removal and subsequent revision. 3. Cholecystectomy. 4. Hysterectomy. 5. Teeth extractions. FAMILY HISTORY: Noncontributory. SOCIAL HISTORY: Former smoking. Quit within the last month. History of cocaine use. Uses BetaVersity chair for ambulation. ALLERGIES: PENICILLIN. REVIEW OF SYSTEMS: She denies nausea, vomiting, fever or chills. PHYSICAL EXAMINATION: VITAL SIGNS: She is afebrile. LOWER EXTREMITY EXAMINATION: On her left foot there is an ulceration on the medial aspect of the foot, approximately 0.5 cm in diameter. There is some local erythema, some trace necrotic tissue in the wound. There is a black, nondissolvable suture in the wound. LABORATORY DATA: Labs are reviewed. White blood cell count is 6.1. Erythrocyte sedimentation rate (ESR) is 16. C-reactive protein (CRP) is 0. 84. Hemoglobin A1C is 5.8. Wound culture is pending. IMAGING DATA: On x-rays, there has been a triple arthrodesis performed with metallic hardware throughout the hind foot, none of which is broken or appears loosened. ASSESSMENT: A 60-year-old diabetic female status post left hind foot surgery with left foot ulceration treatment. Wound was debrided and a nondissolvable suture was removed from the wound itself. Await cultures. Continue empiric antibiotics. Recommend mupirocin ointment be applied with an Optifoam change daily. She can follow up in my office. Will plan for diabetic shoes to ideally prevent further rubbing.
[2021-02-09] MEDS: oxyBUTYnin *DITROPAN XL* 5 MG TABCR PO SCH (20:30)
[2021-02-09] MEDS: FAMOTIDINE 20 MG TAB PO SCH (20:30)
[2021-02-09] MEDS: MUPIROCIN 2% OINT 22 GM TUBE TOP SCH (20:31)
[2021-02-09] MEDS: APIXABAN 5 MG TAB (ELIQUIS) PO SCH (20:32)
[2021-02-09 21:15] VITALS: BP 126/80
[2021-02-09] MEDS ORDERED: HEPARIN SOD (PORCINE) 5000UNITS/ML 1ML VIAL/SYRINGE SC SCH (22:00)
[2021-02-09] MEDS: QUEtiapine FUMARATE **XR** 200MG TABLET PO SCH (23:45)
[2021-02-10] VITALS: BP 129/89
[2021-02-10 04:00] VITALS: BP 143/86
[2021-02-10 05:17] LABS: HEMATOCRIT 35.9 % (36.0-47.0); HEMOGLOBIN 11.1 g/dl (12.0-15.5); MEAN CORPUSCULAR HEMOGLOBIN 28.1 pg (27.0-33.0); MEAN CORPUSCULAR HGB CONC 30.9 g/dl (32.0-36.5); MEAN CORPUSCULAR VOLUME 90.9 fl (80.0-96.0); PLATELET COUNT, AUTOMATED 202 10^3/uL (150-450); RED BLOOD COUNT 3.95 10^6/uL (4.00-5.40); WHITE BLOOD COUNT 8.6 10^3/uL (4.0-10.0)
[2021-02-10 05:46] LABS: BLOOD UREA NITROGEN 15 MG/DL (7-18); CALCIUM LEVEL 8.3 MG/DL (8.8-10.2); CARBON DIOXIDE LEVEL 35 MEQ/L (21-32); CHLORIDE LEVEL 102 MEQ/L (98-107); CREATININE FOR GFR 0.77 MG/DL (0.55-1.30); GLOMERULAR FILTRATION RATE > 60.0 (>45); GLUCOSE, FASTING 119 MG/DL (70-100); POTASSIUM SERUM 3.9 MEQ/L (3.5-5.1); SODIUM LEVEL 140 MEQ/L (136-145)
[2021-02-10] MEDS: IMIPENEM/CILASTATIN 500 MG in D5W MINI-BAG PLUS 100 ML IV SCH ×4 (05:56→22:33)
[2021-02-10] MEDS: ANEXSIA, NORCO 7.5MG/325MG TABLET(HYDROCODONE/APAP) PO SCH ×3 (05:57→21:18)
[2021-02-10 08:00] VITALS: BP 111/59
[2021-02-10] MEDS: APIXABAN 5 MG TAB (ELIQUIS) PO SCH ×2 (08:53→21:17)
[2021-02-10] MEDS: GABAPENTIN 300 MG CAP PO SCH ×3 (08:53→21:18)
[2021-02-10] MEDS: SERTRALINE HCL 25 MG TABLET PO SCH (08:53)
[2021-02-10] MEDS: PANTOPRAZOLE 40MG TAB (PROTONIX) PO SCH (08:53)
[2021-02-10] MEDS: lisinopriL 40 MG TAB PO SCH (08:53)
[2021-02-10] MEDS: SERTRALINE HCL 50 MG TAB PO SCH (08:53)
[2021-02-10] MEDS: NICOTINE 21MG/24HR 1 EA TRANSDERMAL TD SCH (08:54)
[2021-02-10] MEDS: HumaLOG INSULIN (NovoLOG) PER UNIT SC SCH ×4 (08:54→21:00)
[2021-02-10] MEDS: MUPIROCIN 2% OINT 22 GM TUBE TOP SCH (08:55)
[2021-02-10] MEDS: METOPROLOL TART 25 MG TABLET PO SCH ×3 (09:00→17:48)
[2021-02-10] MEDS ORDERED: METOPROLOL SUCC (TopROL XL) 50MG **XL** TAB PO SCH (09:00)
[2021-02-10 11:42] VITALS: BP 114/77
[2021-02-10] MEDS: ADVAIR HFA 115/21MCG INHALER INH SCH ×2 (14:00→19:54)
--- NOTE | 2021-02-10 14:44 | IPNPDOC ---
Date Seen The patient was seen on 02/10/21. Progress Note SUBJECTIVE: Evaluated by podiatry, please refer to note. HR not controlled, switched to metoprolol tartrate 25 mg Po Q6H to see if better controlled. Echo pending. Denies chest pain, SOB, fevers, chills. OBJECTIVE: PHYSICAL EXAMINATION: VS: Please see below CONSTITUTIONAL: No acute distress, resting comfortably, AAO x 3 EYES: PERRLA, EOM intact HENT, MOUTH: Normocephalic, atraumatic, moist mucous membranes, NC in place NECK: large diameter, SUPPLE, no JVD, no lymphadenopathy, no carotid bruit CV: irregularly irregular rhythm, S1S2 normal, no murmurs/rubs/gallops RESPIRATORY: decreased breath sounds bilaterally, no rales/rhonchi/wheezes GI: BS positive in 4 quadrants, soft, nontender, nondistended, no rebound or guarding, no organomegaly : Deferred MUSCULOSKELETAL: Normal ROM. No cyanosis, clubbing, joint deformity, extremity edema INTEGUMENTARY: left foot medial ulcer around area of arch cleaned, covered in clean gauze. Very dry skin in the lower ext. No rashes NEUROLOGIC: Cranial Nerves II-XII are intact, no focal deficits PSYCHIATRIC: Mood and affect are normal LABORATORY DATA: Please see below MICROBIOLOGY: Wound culture preliminary: Heavy Staph Aureus , sensitivities pending IMAGING: CTA chest: No evidence for pulmonary embolus. No acute mediastinal or pleural parenchymal process. CXR: CM, no acute infection Left foot XR: Soft tissue swelling and degenerative changes. Evidence for prior orthopedic fixation. ASSESSMENT: 60-year-old female with past medical history of chronic respiratory failure 2/2 to COPD- oxygen dependent on 2 L nasal cannula, morbid obesity, diabetes mellitus, hypertension, GERD, chronic lower lumbar back pain, overa ctive bladder, depression/anxiety admitted for further evaluation of her left foot ulcer, cellulitis and further evaluation of atrial fibrillation with RVR. PLAN: Atrial fibrillation with RVR, intermittent chest pain -HR uncontrolled overnight 111-130, no longer having chest discomfort -CTA chest neg -Trop neg x 3 -Echo pending -C/w metoprolol tartrate 25 mg PO Q6H, eliquis BID, tele Left foot ulcer likely 2/2 suture in left foot, ill-fitting shoes -S/p debridement on 02/09/21 by podiatry, Dr. Nayak. Please refer to podiatry note -WBC wnl, afebrile -XR foot above -Wound culture: Staph aureus, no sensitivities yet -Podiatry has seen and can f/u with Dr. Nayak after discharge. Chronic hypoxic respiratory failure 2/2 to COPD, O2 dependent -Currently saturating well on 2 L NC, home amount -CXR, CTA chest -C/w home meds DM type II -BS currently stable -Lipid panel wnl, HbA1c <6 -Hold metformin -ISS, FS AC/HS, consistent carb diet HTN -Improved and stable on new change in BB -C/w home and current meds -2 gm sodium diet Overactive bladder -C/w home med Chronic lumbar back pain -Stable -C/w home meds GERD -PPI DVT px -Eliquis BID DISPOSITION: Awaiting results of echo and if need to consult cardiology. PT: safe for discharge home when medically improved. VS, I&O, 24H, Fishbone Vital Signs/I&O Vital Signs Date Time Temp Pulse Resp B/P (MAP) Pulse Ox O2 Delivery O2 Flow Rate FiO2 02/10/21 12:06 100 02/10/21 12:00 2.0 02/10/21 11:42 97.1 20 114/77 (89) 97 Nasal Cannula I&O- Last 24 Hours up to 6 AM 02/10/21 05:59 Intake Total 1000 ml Output Total 1350 ml Balance -350 ml Laboratory Data 24H LABS Laboratory Tests 2 02/09/21 17:03: Troponin I < 0.02 02/09/21 18:30: Bedside Glucose (Misc Panel) 233H 02/09/21 20:20: Bedside Glucose (Misc Panel) 195H 02/09/21 23:47: Bedside Glucose (Misc Panel) 145H 02/10/21 04:58: Nucleated Red Blood Cells % (auto) 0.0, Anion Gap 3L, Glomerular Filtration Rate > 60.0, Calcium Level 8.3L 02/10/21 06:54: Bedside Glucose (Misc Panel) 114 02/10/21 11:37: Bedside Glucose (Misc Panel) 95 CBC/BMP Laboratory Tests 02/10/21 04:58 Microbiology Microbiology 02/09/21 Wound Culture - Preliminary, Resulted Staphylococcus Aureus 02/09/21 Respiratory Virus Panel (PCR) (BEA) - Final, Complete Current Medications Current Medications Medications (Trade) Dose Ordered Sig/Tara Route PRN Reason Start Time Stop Time Status Last Admin Dose Admin Acetaminophen (Tylenol Tab) 650 mg Q4H PRN PO PAIN OR FEVER 02/09/21 11:55 Acetaminophen/ Hydrocodone Bitart (Anexsia, [place] 7.5mg/325mg) 1 tab Q8H PO 02/09/21 14:00 02/10/21 05:57 Albuterol Sulfate (Proventil, Ventolin Hfa) 2 puff QID PRN INH SOB/WHEEZING 02/09/21 12:05 Albuterol/ Ipratropium (Combivent Respimat 100-20mcg) 4 puff Q20M INH 02/09/21 09:00 02/09/21 09:41 DC 02/09/21 09:53 Amlodipine Besylate (Norvasc) 10 mg DAILY PO 02/10/21 09:00 02/10/21 08:53 Apixaban (Eliquis) 5 mg BID PO 02/09/21 21:00 02/10/21 08:53 Dextrose (Dextrose 50%) 25 ml ASDIRECTED PRN IV SEE LABEL COMMENTS 02/09/21 12:30 Famotidine (Pepcid) 20 mg QHS PO 02/09/21 21:00 02/09/21 20:30 Gabapentin (Neurontin) 300 mg TID PO 02/09/21 16:00 02/10/21 08:53 Glucagon (Glucagon) 1 mg ASDIRECTED PRN SC SEE LABEL COMMENTS 02/09/21 12:30 Glucose (Glucose) 16 GM ASDIRECTED PRN PO SEE LABEL COMMENTS 02/09/21 12:30 Heparin Sodium (Porcine) (Heparin) 5,000 units Q8H SC 02/09/21 22:00 02/09/21 12:10 DC Home Med (Med Rec Complete!) ASDIRECTED XX 02/09/21 09:55 02/09/21 09:57 DC Imipenem/ Cilastatin Sodium 250 mg/Dextrose 100 ml @ 100 mls/hr Q6H IV 02/09/21 17:00 02/09/21 14:17 DC Imipenem/ Cilastatin Sodium 500 mg/Dextrose 100 ml @ 100 mls/hr Q6H IV 02/09/21 17:00 02/10/21 11:08 Insulin Human Lispro (HumaLOG INSULIN) SEE PROTOCOL TABLE AC SC 02/09/21 17:30 02/10/21 08:54 Insulin Human Lispro (HumaLOG INSULIN) SEE PROTOCOL TABLE QHS SC 02/09/21 21:00 Lisinopril (Prinivil) 40 mg DAILY PO 02/10/21 09:00 02/10/21 08:53 Metoprolol Succinate (TopROL XL) 50 mg DAILY PO 02/10/21 09:00 02/10/21 08:04 DC Metoprolol Tartrate (Lopressor) 25 mg Q6H PO 02/10/21 06:00 02/10/21 12:06 Mupirocin (Bactroban 2% Ointment) apply to foot ulcer daily DAILY TOP 02/09/21 09:00 02/10/21 08:55 Nicotine (Nicoderm Cq 21mg) 1 patch DAILY TD 02/09/21 09:00 02/10/21 08:54 Oxybutynin Chloride (Ditropan Xl) 15 mg QHS PO 02/09/21 21:00 02/09/21 20:30 Pantoprazole Sodium (Protonix) 40 mg DAILY PO 02/10/21 09:00 02/10/21 08:53 Quetiapine Fumarate (SEROquel XR) 400 mg QHS PO 02/09/21 23:10 02/09/21 23:45 Salmeterol Xinafoate/ Fluticasone (Advair Hfa 115/ 21) 2 puff RBID INH 02/10/21 08:00 Sertraline HCl (Zoloft) 25 mg DAILY PO 02/10/21 09:00 02/10/21 08:53 Sertraline HCl (Zoloft) 50 mg DAILY PO 02/10/21 09:00 02/10/21 08:53 Allergies Coded Allergies: Penicillins (Verified Allergy, Intermediate, UNKNOWN CHILDHOOD REACTION, 02/09/21) Bety Jackson MD Feb 10, 2021 14:44
[2021-02-10 16:00] VITALS: BP 110/64
[2021-02-10 20:00] VITALS: BP 125/87
[2021-02-10] MEDS: FLUTICASONE PROP 0.05% NASAL SPRAY 16 GM (FLONASE) NARES SCH (21:16)
[2021-02-10] MEDS: oxyBUTYnin *DITROPAN XL* 5 MG TABCR PO SCH (21:17)
[2021-02-10] MEDS: QUEtiapine FUMARATE **XR** 200MG TABLET PO SCH (21:17)
[2021-02-10] MEDS: FAMOTIDINE 20 MG TAB PO SCH (21:17)
[2021-02-10] MEDS: VANICREAM MOISTURIZING SKIN CREAM 113GM TUBE TOP SCH (21:19)
[2021-02-11] VITALS: BP 103/57
[2021-02-11 04:00] VITALS: BP 118/79
[2021-02-11 05:17] LABS: HEMATOCRIT 34.8 % (36.0-47.0); HEMOGLOBIN 10.2 g/dl (12.0-15.5); MEAN CORPUSCULAR HGB CONC 29.3 g/dl (32.0-36.5); MEAN CORPUSCULAR VOLUME 92.1 fl (80.0-96.0); PLATELET COUNT, AUTOMATED 162 10^3/uL (150-450); RED BLOOD COUNT 3.78 10^6/uL (4.00-5.40); WHITE BLOOD COUNT 6.1 10^3/uL (4.0-10.0)
[2021-02-11 05:41] LABS: BLOOD UREA NITROGEN 20 MG/DL (7-18); CALCIUM LEVEL 8.5 MG/DL (8.8-10.2); CARBON DIOXIDE LEVEL 37 MEQ/L (21-32); CHLORIDE LEVEL 103 MEQ/L (98-107); CREATININE FOR GFR 0.88 MG/DL (0.55-1.30); GLOMERULAR FILTRATION RATE > 60.0 (>45); GLUCOSE, FASTING 103 MG/DL (70-100); POTASSIUM SERUM 4.2 MEQ/L (3.5-5.1); SODIUM LEVEL 141 MEQ/L (136-145)
[2021-02-11] MEDS: METOPROLOL TART 25 MG TABLET PO SCH ×4 (06:00→21:30)
[2021-02-11] MEDS: ANEXSIA, NORCO 7.5MG/325MG TABLET(HYDROCODONE/APAP) PO SCH ×3 (06:08→21:21)
[2021-02-11] MEDS: IMIPENEM/CILASTATIN 500 MG in D5W MINI-BAG PLUS 100 ML IV SCH (06:08)
[2021-02-11] MEDS: ADVAIR HFA 115/21MCG INHALER INH SCH ×2 (07:43→20:32)
[2021-02-11 08:00] VITALS: BP 131/85
[2021-02-11] MEDS: NICOTINE 21MG/24HR 1 EA TRANSDERMAL TD SCH (09:26)
[2021-02-11] MEDS: SERTRALINE HCL 50 MG TAB PO SCH (09:27)
[2021-02-11] MEDS: SERTRALINE HCL 25 MG TABLET PO SCH (09:27)
[2021-02-11] MEDS: PANTOPRAZOLE 40MG TAB (PROTONIX) PO SCH (09:27)
[2021-02-11] MEDS: GABAPENTIN 300 MG CAP PO SCH ×3 (09:27→21:21)
[2021-02-11] MEDS: APIXABAN 5 MG TAB (ELIQUIS) PO SCH ×2 (09:27→21:20)
[2021-02-11] MEDS: lisinopriL 40 MG TAB PO SCH (09:27)
[2021-02-11] MEDS: BACTRIM 160MG/800MG DS TAB PO SCH ×2 (09:27→21:21)
[2021-02-11] MEDS: HumaLOG INSULIN (NovoLOG) PER UNIT SC SCH ×4 (09:28→21:00)
[2021-02-11] MEDS: MUPIROCIN 2% OINT 22 GM TUBE TOP SCH (09:28)
[2021-02-11] MEDS: VANICREAM MOISTURIZING SKIN CREAM 113GM TUBE TOP SCH ×2 (09:29→21:00)
[2021-02-11] MEDS: FLUTICASONE PROP 0.05% NASAL SPRAY 16 GM (FLONASE) NARES SCH (09:29)
--- NOTE | 2021-02-11 11:49 | IPNPDOC ---
Date Seen The patient was seen on 02/11/21. Progress Note SUBJECTIVE: Staph on wound cx, started on PO bactrim. BP low, BB adjusted. Echo pending results. No events overnight. OBJECTIVE: PHYSICAL EXAMINATION: VS: Please see below CONSTITUTIONAL: No acute distress, resting comfortably, AAO x 3 EYES: PERRLA, EOM intact HENT, MOUTH: Normocephalic, atraumatic, moist mucous membranes, NC in place NECK: large diameter, SUPPLE, no JVD, no lymphadenopathy, no carotid bruit CV: irregularly irregular rhythm, S1S2 normal, no murmurs/rubs/gallops RESPIRATORY: decreased breath sounds bilaterally, no rales/rhonchi/wheezes GI: BS positive in 4 quadrants, soft, nontender, nondistended, no rebound or guarding, no organomegaly : Deferred MUSCULOSKELETAL: Normal ROM. No cyanosis, clubbing, joint deformity, extremity edema INTEGUMENTARY: left foot medial ulcer around area of arch cleaned, covered in clean gauze. Improved dry skin in the lower ext. No rashes NEUROLOGIC: Cranial Nerves II-XII are intact, no focal deficits PSYCHIATRIC: Mood and affect are normal LABORATORY DATA: Please see below MICROBIOLOGY: Wound culture preliminary: MSSA IMAGING: CTA chest: No evidence for pulmonary embolus. No acute mediastinal or pleural parenchymal process. CXR: CM, no acute infection Left foot XR: Soft tissue swelling and degenerative changes. Evidence for prior orthopedic fixation. ASSESSMENT: 60-year-old female with past medical history of chronic respiratory failure 2/2 to COPD- oxygen dependent on 2 L nasal cannula, morbid obesity, diabetes mellitus, hypertension, GERD, chronic lower lumbar back pain, overactive bladder, depression/anxiety admitted for further evaluation of her left foot ulcer, cellulitis and further evaluation of atrial fibrillation with RVR. PLAN: Atrial fibrillation with RVR, intermittent chest pain -HR better controlled -CTA chest neg -Trop neg x 3 -Echo pending -Needing to adjust BB dosage as BP is too low -Started metoprolol 37.5 BID, c/w eliquis BID, tele Left foot ulcer likely 2/2 suture in left foot, ill-fitting shoes -S/p debridement on 02/09/21 by podiatry, Dr. Nayak. Please refer to podiatry note -WBC wnl, afebrile -XR foot above -Wound culture: MSSA -D/c IV abx, started PO bactrim BID -Podiatry has seen and can f/u with Dr. Nayak after discharge. Hypotension likely 2/2 to beta marcus use -Adjusting dose today -Monitor closely -Asymptomatic Chronic hypoxic respiratory failure 2/2 to COPD, O2 dependent -Currently saturating well on 2 L NC, home amount -CXR, CTA chest -C/w home meds DM type II -BS currently stable -Lipid panel wnl, HbA1c <6 -Hold metformin -ISS, FS AC/HS, consistent carb diet HTN -Improved and stable on new change in BB -C/w home and current meds -2 gm sodium diet Overactive bladder -C/w home med Chronic lumbar back pain -Stable -C/w home meds GERD -PPI DVT px -Eliquis BID DISPOSITION: Awaiting results of echo and if need to consult cardiology. PT: safe for discharge home when medically improved. VS, I&O, 24H, Fishbone Vital Signs/I&O Vital Signs Date Time Temp Pulse Resp B/P (MAP) Pulse Ox O2 Delivery O2 Flow Rate FiO2 02/11/21 09:00 2.0 02/11/21 08:00 97.9 126 20 131/85 (100) 91 Nasal Cannula I&O- Last 24 Hours up to 6 AM 02/11/21 06:00 Intake Total 2800 ml Output Total 2350 ml Balance 450 ml Laboratory Data 24H LABS Laboratory Tests 2 02/10/21 17:17: Bedside Glucose (Misc Panel) 121H 02/10/21 21:23: Bedside Glucose (Misc Panel) 130H 02/11/21 04:52: Anion Gap 1L, Glomerular Filtration Rate > 60.0, Calcium Level 8.5L 02/11/21 04:53: Nucleated Red Blood Cells % (auto) 0.0 CBC/BMP Laboratory Tests 02/11/21 04:52 02/11/21 04:53 Microbiology Microbiology 02/09/21 Wound Culture - Final, Complete Staphylococcus Aureus 02/09/21 Respiratory Virus Panel (PCR) (BEA) - Final, Complete Current Medications Current Medications Medications (Trade) Dose Ordered Sig/Tara Route PRN Reason Start Time Stop Time Status Last Admin Dose Admin Acetaminophen (Tylenol Tab) 650 mg Q4H PRN PO PAIN OR FEVER 02/09/21 11:55 Acetaminophen/ Hydrocodone Bitart (Anexsia, [place] 7.5mg/325mg) 1 tab Q8H PO 02/09/21 14:00 02/11/21 06:08 Albuterol Sulfate (Proventil, Ventolin Hfa) 2 puff QID PRN INH SOB/WHEEZING 02/09/21 12:05 Albuterol/ Ipratropium (Combivent Respimat 100-20mcg) 4 puff Q20M INH 02/09/21 09:00 02/09/21 09:41 DC 02/09/21 09:53 Amlodipine Besylate (Norvasc) 10 mg DAILY PO 02/10/21 09:00 02/11/21 09:27 Apixaban (Eliquis) 5 mg BID PO 02/09/21 21:00 02/11/21 09:27 Dextrose (Dextrose 50%) 25 ml ASDIRECTED PRN IV SEE LABEL COMMENTS 02/09/21 12:30 Emollient Cream (Vanicream) 1 dose BID TOP 02/10/21 21:00 02/11/21 09:29 Famotidine (Pepcid) 20 mg QHS PO 02/09/21 21:00 02/10/21 21:17 Fluticasone Propionate (Flonase 0.05% Nasal [place]) 2 spray DAILY NARES 02/10/21 20:10 02/11/21 09:29 Gabapentin (Neurontin) 300 mg TID PO 02/09/21 16:00 02/11/21 09:27 Glucagon (Glucagon) 1 mg ASDIRECTED PRN SC SEE LABEL COMMENTS 02/09/21 12:30 Glucose (Glucose) 16 GM ASDIRECTED PRN PO SEE LABEL COMMENTS 02/09/21 12:30 Heparin Sodium (Porcine) (Heparin) 5,000 units Q8H SC 02/09/21 22:00 02/09/21 12:10 DC Home Med (Med Rec Complete!) ASDIRECTED XX 02/09/21 09:55 02/09/21 09:57 DC Imipenem/ Cilastatin Sodium 250 mg/Dextrose 100 ml @ 100 mls/hr Q6H IV 02/09/21 17:00 02/09/21 14:17 DC Imipenem/ Cilastatin Sodium 500 mg/Dextrose 100 ml @ 100 mls/hr Q6H IV 02/09/21 17:00 02/11/21 07:59 DC 02/11/21 06:08 Insulin Human Lispro (HumaLOG INSULIN) SEE PROTOCOL TABLE AC SC 02/09/21 17:30 02/11/21 09:28 Insulin Human Lispro (HumaLOG INSULIN) SEE PROTOCOL TABLE QHS SC 02/09/21 21:00 Lisinopril (Prinivil) 40 mg DAILY PO 02/10/21 09:00 02/11/21 09:27 Metoprolol Succinate (TopROL XL) 50 mg DAILY PO 02/10/21 09:00 02/10/21 08:04 DC Metoprolol Tartrate (Lopressor) 25 mg Q6H PO 02/10/21 06:00 02/11/21 07:57 DC 02/10/21 12:06 Metoprolol Tartrate (Lopressor) 37.5 mg BID PO 02/11/21 09:00 02/11/21 09:27 Mupirocin (Bactroban 2% Ointment) apply to foot ulcer daily DAILY TOP 02/09/21 09:00 02/11/21 09:28 Nicotine (Nicoderm Cq 21mg) 1 patch DAILY TD 02/09/21 09:00 02/11/21 09:26 Oxybutynin Chloride (Ditropan Xl) 15 mg QHS PO 02/09/21 21:00 02/10/21 21:17 Pantoprazole Sodium (Protonix) 40 mg DAILY PO 02/10/21 09:00 02/11/21 09:27 Quetiapine Fumarate (SEROquel XR) 400 mg QHS PO 02/09/21 23:10 02/10/21 21:17 Salmeterol Xinafoate/ Fluticasone (Advair Hfa 115/ 21) 2 puff RBID INH 02/10/21 08:00 02/11/21 07:43 Sertraline HCl (Zoloft) 25 mg DAILY PO 02/10/21 09:00 02/11/21 09:27 Sertraline HCl (Zoloft) 50 mg DAILY PO 02/10/21 09:00 02/11/21 09:27 Trimethoprim/ Sulfamethoxazole (Bactrim Ds, Septra Ds 160mg/ 800mg) 1 tab BID PO 02/11/21 09:00 02/21/21 08:59 02/11/21 09:27 Allergies Coded Allergies: Penicillins (Verified Allergy, Intermediate, UNKNOWN CHILDHOOD REACTION, 02/09/21) Bety Jackson MD Feb 11, 2021 11:49
[2021-02-11 12:00] VITALS: BP 116/70
[2021-02-11 16:00] VITALS: BP 138/87
[2021-02-11 20:00] VITALS: BP 120/96
[2021-02-11] MEDS: QUEtiapine FUMARATE **XR** 200MG TABLET PO SCH (21:19)
[2021-02-11] MEDS: oxyBUTYnin *DITROPAN XL* 5 MG TABCR PO SCH (21:20)
[2021-02-11] MEDS: FAMOTIDINE 20 MG TAB PO SCH (21:20)
[2021-02-12] VITALS: BP 121/87
[2021-02-12] MEDS ORDERED: diphenhydrAMINE 50MG/ML VIAL (J1200) IM PRN
[2021-02-12] MEDS ORDERED: EPINEPHrine INJ 1 MG/ML 1ML AMP IM PRN
[2021-02-12 04:00] VITALS: BP 98/56
[2021-02-12 05:37] LABS: HEMATOCRIT 34.5 % (36.0-47.0); HEMOGLOBIN 10.3 g/dl (12.0-15.5); MEAN CORPUSCULAR HGB CONC 29.9 g/dl (32.0-36.5); MEAN CORPUSCULAR VOLUME 90.6 fl (80.0-96.0); PLATELET COUNT, AUTOMATED 175 10^3/uL (150-450); RED BLOOD COUNT 3.81 10^6/uL (4.00-5.40)
[2021-02-12 05:57] LABS: BLOOD UREA NITROGEN 17 MG/DL (7-18); CALCIUM LEVEL 7.7 MG/DL (8.8-10.2); CARBON DIOXIDE LEVEL 38 MEQ/L (21-32); CHLORIDE LEVEL 102 MEQ/L (98-107); CREATININE FOR GFR 0.78 MG/DL (0.55-1.30); GLOMERULAR FILTRATION RATE > 60.0 (>45); GLUCOSE, FASTING 91 MG/DL (70-100); POTASSIUM SERUM 4.1 MEQ/L (3.5-5.1); SODIUM LEVEL 141 MEQ/L (136-145)
[2021-02-12 07:16] VITALS: BP 119/89
[2021-02-12] MEDS: ADVAIR HFA 115/21MCG INHALER INH SCH (07:23)
[2021-02-12] MEDS: ANEXSIA, NORCO 7.5MG/325MG TABLET(HYDROCODONE/APAP) PO SCH (07:28)
[2021-02-12] MEDS: HumaLOG INSULIN (NovoLOG) PER UNIT SC SCH ×2 (07:30→12:15)
[2021-02-12] MEDS ORDERED: ELIQ5TAB PO (07:33)
[2021-02-12] MEDS ORDERED: MUPI2OI TOP (07:34)
[2021-02-12] MEDS ORDERED: SULF1TAB23 PO (07:34)
[2021-02-12] MEDS ORDERED: METO1TAB87 PO (07:34)
[2021-02-12] MEDS ORDERED: ACET1TAB55 PO (07:34)
[2021-02-12] MEDS ORDERED: NICO21PAT TD (07:34)
[2021-02-12] MEDS ORDERED: SLF 3 ML SYR IV PRN (07:40)
[2021-02-12 09:41] VITALS: BP 119/89
[2021-02-12] MEDS: METOPROLOL TART 25 MG TABLET PO SCH (09:41)
[2021-02-12] MEDS: APIXABAN 5 MG TAB (ELIQUIS) PO SCH (09:41)
[2021-02-12] MEDS: GABAPENTIN 300 MG CAP PO SCH (09:41)
[2021-02-12] MEDS: NICOTINE 21MG/24HR 1 EA TRANSDERMAL TD SCH (09:42)
[2021-02-12] MEDS: BACTRIM 160MG/800MG DS TAB PO SCH (09:45)
[2021-02-12] MEDS: PANTOPRAZOLE 40MG TAB (PROTONIX) PO SCH (09:45)
[2021-02-12] MEDS: SERTRALINE HCL 50 MG TAB PO SCH (09:45)
[2021-02-12] MEDS: SERTRALINE HCL 25 MG TABLET PO SCH (09:45)
[2021-02-12] MEDS: VANICREAM MOISTURIZING SKIN CREAM 113GM TUBE TOP SCH (09:46)
[2021-02-12] MEDS: MUPIROCIN 2% OINT 22 GM TUBE TOP SCH (09:46)
[2021-02-12] MEDS: FLUTICASONE PROP 0.05% NASAL SPRAY 16 GM (FLONASE) NARES SCH (09:46)
[2021-02-12] MEDS: lisinopriL 40 MG TAB PO SCH (09:52)
[2021-02-12] MEDS ORDERED: COVID-19 VAC,AD26(JANSSEN)/PF 0.5ML SYRINGE (EUA) IM ONE (10:00)
--- NOTE | 2021-02-12 10:48 | ECHO ---
DATE OF PROCEDURE: 02/09/2021 Age: 60 Gender: Female Height: 178 cm Weight: 141 kg REFERRING PHYSICIAN: Bety Jackson M.D. INDICATION: Cardiac arrhythmia. MEASUREMENTS: IVS 1.3 cm LV 5.1 cm LVPW 1.2 cm LA 4.7 cm Aorta 3.1 cm IVC 2.2 cm FINDINGS: This study is of difficult technical quality with limited visualization. It was a supine examination only in morbidly obese person. Underlying atrial fibrillation with rate around 110 beats per minute. Left ventricle is normal size. Right ventricular hypertrophy is noted. Overall likely normal LV systolic function based on difficult views. The right ventricle was poorly visualized. It does not appear grossly enlarged and contractility is probably normal. There is biatrial enlargement. The aortic valve has three cusps. It is minimally sclerotic, but mobility is preserved. Mitral and tricuspid valves appear normal. Pulmonic valve was not visualized. Small amount of pericardial fat pad, but no effusion is noted. Inferior vena cava is dilated and there is no appreciable collapse with inspiration indicative of very high central venous pressure. Aortic root is normal. Aortic arch and abdominal aorta were not seen. Doppler interrogation of the aortic valve reveals no stenosis or insufficiency. The same applies to the mitral valve. There is tract tricuspid insufficiency. Calculated pulmonary artery pressure is in the 40s, but it was based on poor quality of TR jet and should not be considered completely reliable. Evaluation of diastolic function is inconclusive due to underlying atrial fibrillation. CONCLUSIONS: 1. Study is of limited technical quality corresponding to patients body habitus and supine only exam. Patient is in atrial fibrillation with rapid ventricular response. 2. Normal LV size with mild LVH and overall probably normal LV systolic function. 3. No significant valvular disease. 4. Biatrial enlargement. 5. Elevated central venous pressure and at least moderate pulmonary hypertension. MTDD
[2021-02-12 12:00] VITALS: BP 118/73
[2021-02-12] MEDS ORDERED: SLF 3 ML SYR IV SCH (14:00)
--- NOTE | 2021-02-12 16:03 | DS.PDOC ---
Discharge Summary General Date of Admission Feb 09, 2021 at 11:54 Date of Discharge 02/12/21 Attending Physician: Bety Jackson MD Discharge Summary HISTORY OF PRESENT ILLNESS: Patient is a 60-year-old female with past medical history of chronic respiratory failure 2/2 to COPD- oxygen dependent on 2 L NC, morbid obesity, diabetes mellitus, hypertension, GERD, chronic lower lumbar back pain, overactive bladder, depression/anxiety who presented to [facility] emergency room after h aving several days of left medial foot pain and swelling. Patient states she has had surgery in the area of the arch many years ago in [place] and that area of scarring is very sensitive to opening up and ulcerating if shoes are not fitting properly. Several days ago she noticed an open blister beginning and over the past several days began to weep and pus has started to drain from it. She says the redness was isolated to the area around ulcer and due to not improving at home, she came to the emergency room to get further evaluated. She denies fevers, chills, nausea, vomiting, diarrhea, cough, abdominal pain. She does not follow with a stone lathe operator in local area. She admits to having regular shortness of breath but nothing more than her ordinary, occasional chest pain which she says radiates across anterior chest, 2/10 in intensity when present, intermittent more so with activity, does not radiate to the neck or down the arm. She states she also has occasional palpitations as well. In the emergency room, vital signs showed she was initially 85% on room air on 2 L nasal cannula she was 96%. Her heart rate varied between 651 05, atrial fibrillation with RVR on ECG. The patient has no documented history of atrial fibrillation and this is believed to be new onset. WBC was within normal limits, CO2 35 and likely chronically elevated. BNP 1357, troponin negative. Chest x-ray showed cardiomegaly but no acute infection. The left medial foot around the arch had an open ulcer draining, wound culture was collected. The patient's does not have a lieutenant fire fighter and does not have transportation aside from her house around which she used to come to the emergency room. She also has not established with a stone lathe operator in the local area to quickly evaluate her ulcer. The patient was admitted for further evaluation of her left foot ulcer, cellulitis and further evaluation of atrial fibrillation with RVR. HOSPITAL COURSE: Patient was started on metoprolol Q6Hs, later changed to 37.5 mg PO BID which the patient tolerated much better. BP remained stable, HR was controlled. She was started on eliquis BID. CTA chest neg , Trop neg x 3. Echocardiogram was done but remained pending on day of discharge. We would kindly ask PCP to follow up on results, refer to cardiology likely. Her LLE ulcer on the inner medial area of her foot was likely 2/2 to an old suture left in the left foot from a prior surgery, ill-fitting shoes. S/p debridement on 02/09/21 by podiatry, Dr. Nayak. WBC wnl, she remained afebrile. Wound culture grew MSSA and it is recommended to continue with PO bactrim BID x 7 additional days. Podiatry has seen and can f/u with Dr. Nayak after discharge. All other chronic issues remained stable. She was discharged home to f/u with PCP, podiatry on 02/12/21 in improved condition. PAST MEDICAL HISTORY: chronic respiratory failure 2/2 to COPD- oxygen dependent on 2 L nasal cannula, morbid obesity, diabetes mellitus, hypertension, GERD, chronic lower lumbar back pain, overactive bladder, depression, anxiety PAST SURGICAL HISTORY: Left foot surgery with hardware placed cholecystectomy partial hysterectomy teeth extractions FAMILY HISTORY: Father: at unknown age Mother: in MVA when young. at 42 y/o SOCIAL HISTORY: Prior smoker for 40 years 2 PPD, quit 30 days ago- uses lozenges. Drinks alcohol occasionally. Used to use drugs (i.e cocaine) regularly but quit 14 months ago. Uses [employer] wheelchair to ambulate mostly. Lives alone currently. PCP- Denton Silverio, follows with dermatology in [place], [place]. DNR with trial intubation. DISCHARGE MEDICATIONS: Please see below PHYSICAL EXAMINATION: VS: Please see below CONSTITUTIONAL: No acute distress, resting comfortably, AAO x 3 EYES: PERRLA, EOM intact HENT, MOUTH: Normocephalic, atraumatic, moist mucous membranes, NC in place NECK: large diameter, SUPPLE, no JVD, no lymphadenopathy, no carotid bruit CV: irregularly irregular rhythm, S1S2 normal, no murmurs/rubs/gallops RESPIRATORY: decreased breath sounds bilaterally, no rales/rhonchi/wheezes GI: BS positive in 4 quadrants, soft, nontender, nondistended, no rebound or guarding, no organomegaly : Deferred MUSCULOSKELETAL: Normal ROM. No cyanosis, clubbing, joint deformity, extremity edema INTEGUMENTARY: left foot medial ulcer around area of arch cleaned, covered in clean gauze. Improved dry skin in the lower ext. No rashes NEUROLOGIC: Cranial Nerves II-XII are intact, no focal deficits PSYCHIATRIC: Mood and affect are normal LABORATORY DATA: Please see below MICROBIOLOGY: Wound culture preliminary: MSSA IMAGING: CTA chest: No evidence for pulmonary embolus. No acute mediastinal or pleural parenchymal process. CXR: CM, no acute infection Left foot XR: Soft tissue swelling and degenerative changes. Evidence for prior orthopedic fixation. ASSESSMENT: 60-year-old female with past medical history of chronic respiratory failure 2/2 to COPD- oxygen dependent on 2 L nasal cannula, morbid obesity, diabetes mellitus, hypertension, GERD, chronic lower lumbar back pain, overactive bladder, depression/anxiety admitted for further evaluation of her left foot ulcer, cellulitis and further evaluation of atrial fibrillation with RVR. PLAN: Atrial fibrillation with resolved rapid ventricular rate -HR better controlled -CTA chest neg -Trop neg x 3 -Echo pending and would recommend PCP to follow up on results, refer to cardiology likely -C/w metoprolol 37.5 BID, c/w eliquis BID Left foot ulcer likely 2/2 suture in left foot, ill-fitting shoes -S/p debridement on 02/09/21 by podiatry, Dr. Nayak. Please refer to podiatry note -WBC wnl, afebrile -XR foot above -Wound culture: MSSA -To continue with PO bactrim BID x 7 additional days -Podiatry has seen and can f/u with Dr. Nayak after discharge. Chronic hypoxic respiratory failure 2/2 to COPD, O2 dependent -Currently saturating well on 2 L NC, home amount -CXR, CTA chest -C/w home meds DM type II -BS currently stable -Lipid panel wnl, HbA1c <6 -C/w home med HTN -Improved and stable on new change in BB -C/w home and current meds -2 gm sodium diet Overactive bladder -C/w home med Chronic lumbar back pain -Stable -C/w home meds GERD -PPI DVT px -Eliquis BID DISPOSITION: D/c home today to followup with PCP. Asking PCP to please f/u on echocardiogram done this hospital stay and refer to cardiology as o/p TIME SPENT ON DISCHARGE: 35 minutes. Vital Signs/I&Os Vital Signs Date Time Temp Pulse Resp B/P (MAP) Pulse Ox O2 Delivery O2 Flow Rate FiO2 02/12/21 12:00 97.7 80 19 118/73 (88) 100 Nasal Cannula 2.0 I&O- Last 24 Hours up to 6 AM 02/12/21 05:59 Intake Total 1660 ml Output Total 2050 ml Balance -390 ml Laboratory Data Labs 24H Laboratory Tests 2 02/11/21 16:21: Bedside Glucose (Misc Panel) 101 02/11/21 21:01: Bedside Glucose (Misc Panel) 117H 02/12/21 05:16: Nucleated Red Blood Cells % (auto) 0.0, Anion Gap 1L, Glomerular Filtration Rate > 60.0, Calcium Level 7.7L 02/12/21 11:39: Bedside Glucose (Misc Panel) 121H CBC/BMP Laboratory Tests 02/12/21 05:16 FSBS Laboratory Tests Test 02/11/21 16:21 02/11/21 21:01 02/12/21 11:39 Range/Units Bedside Glucose (Misc Panel) 101 117 121 80-115 MG/DL Microbiology Microbiology 02/09/21 Wound Culture - Final, Complete Staphylococcus Aureus 02/09/21 Respiratory Virus Panel (PCR) (BEA) - Final, Complete Discharge Medications Scheduled Amlodipine Besylate (Amlodipine Besylate) 10 Mg Tablet, 10 MG PO DAILY, (Reported) Ammonium Lactate (Ammonium Lactate) 12% Lotion, 1 APLCT TOP QHS, (Reported) APPLY TO FEET Apixaban (Eliquis) 5 Mg Tablet, 5 MG PO BID Famotidine (Famotidine) 20 Mg Tablet, 20 MG PO QHS, (Reported) Fluticasone Propion/Salmeterol (Fluticasone-Salmeterol 113-14) 1 Each Aer.pow. ba, 2 PUFFS INH BID, (Reported) Gabapentin (Gabapentin) 300 Mg Capsule, 300 MG PO TID, (Reported) Hydrocodone/Acetaminophen (Hydrocodone-Acetamin 7.5-325) 1 Each Tablet, 1 TAB PO Q8H, (Reported) Lisinopril (Lisinopril) 40 Mg Tablet, 40 MG PO DAILY, (Reported) Metformin HCl (Metformin HCl) 850 Mg Tablet, 850 MG PO BID, (Reported) Metoprolol Tartrate (Metoprolol Tartrate) 25 Mg Tablet, 37.5 MG PO BID Mupirocin (Mupirocin) 2 % Oint...g., 1 DOSE TOP DAILY Nicotine (Nicotine Patch) 21 Mg Patch.td24, 1 PATCH TD DAILY Oxybutynin Chloride (Oxybutynin Chloride ER) 15 Mg Tab.er.24, 15 MG PO QHS, (Reported) Pantoprazole Sodium (Pantoprazole Sodium) 40 Mg Tablet.dr, 40 MG PO DAILY, (Reported) Quetiapine Fumarate (Quetiapine Fumarate ER) 400 Mg Tab.er.24h, 400 MG PO QHS, (Reported) Sertraline HCl (Sertraline HCl) 25 Mg Tablet, 25 MG PO DAILY, (Reported) TAKES WITH 50MG FOR TOTAL DOSE 75MG Sertraline HCl (Sertraline HCl) 50 Mg Tablet, 50 MG PO DAILY, (Reported) TAKES WITH 25MG FOR TOTAL DOSE 75MG Sulfamethoxazole/Trimethoprim (Sulfamethoxazole-Tmp Ds Tablet) 800 Mg-160 Mg Tablet, 1 TAB PO BID Triamcinolone Acet (Triamcinolone Acetonide 0.1% Oint) 15 Gm Oint...g., 1 APLCT TOP BID, (Reported) MIX WITH CETAPHIL OR CEREVE AND APPLY TO AFFECTED AREAS ON BODY Umeclidinium [place] (Incruse Ellipta) 62.5 Mcg Blst.w.dev, 1 PUFF INH DAILY, (Reported) Scheduled PRN Acetaminophen (Acetaminophen) 325 Mg Tablet, 650 MG PO Q6HP PRN for PAIN OR FEVER Albuterol Sulfate (Albuterol Sulfate Hfa) 8.5 Gm Hfa.aer.ad, 2 PUFFS INH QID PRN for SOB/WHEEZING, (Reported) Ibuprofen (Ibuprofen) 800 Mg Tablet, 800 MG PO BID PRN for PAIN, (Reported) Allergies Coded Allergies: Penicillins (Verified Allergy, Intermediate, UNKNOWN CHILDHOOD REACTION, 02/09/21) Bety Jackson MD Feb 12, 2021 16:03
== END 2021-02-12 12:55 | disposition home health service (06) | DRG 380 ==
LOC: M ED 08:33 → M ED INP 11:54 → ENRESERV 12:14 → M MSPAV 14:06 → M PCU 21:08
PROVIDERS: ADMIT Internal Medicine; ATTEND Internal Medicine
DX: E11.621 Type 2 diabetes mellitus with foot ulcer (principal); J96.11 Chronic respiratory failure with hypoxia; Z99.81 Dependence on supplemental oxygen; I95.9 Hypotension, unspecified; Z68.42 Body mass index [BMI] 45.0-49.9, adult; L97.929 Non-pressure chronic ulcer of unspecified part of left lower leg with unspecified severity; E66.01 Morbid (severe) obesity due to excess calories; I48.91 Unspecified atrial fibrillation; J44.9 Chronic obstructive pulmonary disease, unspecified; M54.5 Low back pain; Z79.899 Other long term (current) drug therapy; Z88.0 Allergy status to penicillin; I10 Essential (primary) hypertension; K21.9 Gastro-esophageal reflux disease without esophagitis; F41.9 Anxiety disorder, unspecified; F32.9 Major depressive disorder, single episode, unspecified; N32.81 Overactive bladder; Z87.891 Personal history of nicotine dependence

== ENCOUNTER → 2021-03-23 | Outpatient (CLI) | payer OTHER ==
[~2021-03-23] MED LIST changes: +ACET1TAB55 PO; +ALBU8.5H INH; +AMLO1TAB25 PO; +AMMO12LO TOP; +ELIQ5TAB PO; +FAMO1TAB11 PO; +FLUT1INH2 INH; +GABA-282 PO; +HYDR-3716 PO; +IBUP80TA PO; +INCR1INH INH; +LISI40TA4 PO; +METF850T4 PO; +METO1TAB7 PO; +METO1TAB87 PO; +MUPI2OI TOP; +NICO21PAT TD; +OXYB15TA14 PO; +PANT40TA29 PO; +QUET400T42 PO; +SERT25TA21 PO; +SERT50TA29 PO; +SULF1TAB23 PO; +TRIA1OI TOP
--- NOTE | 2021-03-27 03:58 | ECWPNPC ---
PATIENT NAME: LUIS CANTRELL : 1960 GENDER: FEMALE VISIT DATE: 03/23/2021 DISCHARGE DATE: 03/23/21 0948 VISIT LOCKED DATE TIME: PHYSICIAN: RIK DIAZ RESOURCE: RIK DIAZ REASON FOR APPOINTMENT 1. FOOT PAIN HISTORY OF PRESENT ILLNESS DEPRESSION SCREENING: PHQ-2 (2015 EDITION) LITTLE INTEREST OR PLEASURE IN DOING THINGS?SEVERAL DAYS FEELING DOWN, DEPRESSED, OR HOPELESS?NOT AT ALL TOTAL SCORE1 61-YEAR-OLD FEMALE IN FOR CHRONIC PAIN FOLLOW-UP. SHE RATES HER PAIN CURRENTLY A 7 OUT OF 10 AND DESCRIBES IT INTERMITTENT, SHARP, STABBING,TENDER, THROBBING, SORE, AND SHOOTING. PATIENT FEELS THE MEDICATIONS ARE HELPFUL AND DENIES MED SIDE EFFECTS AT THIS TIME. GENERAL: -. FALL RISK SCREENING: SCREENING : NO FALLS REPORTED IN THE LAST YEAR. PAIN SCREENING: PATIENT HAS A COMPLAINT OF ACUTE OR CHRONIC PAIN :YES LOCATION OF PAIN:FEET LEFT FOOT INTENSITY OF PAIN (SCALE OF 1 TO 10):7 WHAT DOES YOUR PAIN FEEL LIKE:INTERMITTENT, SHARP, STABBING, TENDER, THROBBING, SORE, SHOOTING, OTHER FEELS LIKE A SCREWDRIVER BEING ROTATED IN FOOT, TWISTING DURATION:INTERMITTENT PAIN IS INCREASED BY:ACTIVITIES, PROLONGED STANDING PAIN IS DECREASED BY:USE OF PAIN MEDICATIONS, SITTING NURSING NOTE: -. PAIN CENTER INTAKE QUESTIONS: DO YOU HAVE A HISTORY OF MRSA? :YES DO YOU TAKE A BLOOD THINNERS? :YES ELOQUIS DO YOU HAVE ANY BLEEDING DISORDERS? :NO ANY NEW NUMBNESS OR WEAKNESS IN YOUR LEGS OR ARMS? :NO ANY PACEMAKER,DEFIBRILLATOR, OR DORSAL COLUMN STIMULATOR? :NO DO YOU HAVE ANY RASHES OR OPEN SORES? :NO ARE YOU ALLERGIC TO IV DYE? :NO ARE YOU DIABETIC? :YES ANY NEW PROBLEMS WITH YOUR MEDICATIONS? :NO HAVE YOU RECEIVED A VACCINE IN THE PAST 30 DAYS? :YES IF SO WHAT VACCINE AND WHEN? RIAN AND RIAN COVID VACCINATION 02/12/2021 DO YOU PLAN TO RECEIVE A VACCINE IN THE NEXT 21 DAYS? :NO DO YOU NEED ANY PRESCRIPTION? :YES HYDROCODONE DO YOU TAKE ANY IMMUNOSUPPRESSIVE MEDICATIONS? :NO DO YOU HAVE ANY KIDNEY OR LIVER DISEASE? :NO IS THERE A CHANCE YOU COULD BE ? :NO ARE YOU BREAST FEEDING? :NO CURRENT MEDICATIONS TAKING PEPCID 20 MG TABLET 1 TAB ORALLY TWICE DAILY TAKING VESICARE 10 MG TABLET 1 TABLET ORALLY ONCE A DAY TAKING OXYGEN 2 L/MIN VIA NC NEEDED TAKING PROAIR HFA 108 (90 BASE) MCG/ACT AEROSOL SOLUTION 2 PUFFS NEEDED INHALATION QID PRN TAKING QUETIAPINE FUMARATE ER 400 MG TABLET EXTENDED RELEASE 24 HOUR 1 TABLET IN THE EVENING ORALLY TWICE DAILY TAKING ATORVASTATIN CALCIUM 40 MG TABLET 1 TABLET ORALLY ONCE A DAY TAKING LISINOPRIL 40 MG TABLET 1 TABLET ORALLY ONCE A DAY TAKING METFORMIN HCL 850 MG TABLET 1 TABLET WITH A MEAL ORALLY TWICE DAILY TAKING AMLODIPINE BESYLATE 10 MG TABLET 1 TABLET ORALLY ONCE A DAY TAKING METOPROLOL SUCCINATE 50 MG CAPSULE ER 24 HOUR SPRINKLE 1 CAPSULE ORALLY ONCE A DAY TAKING ZOLOFT 50 MG TABLET 1 TABLET ORALLY ONCE A DAY TAKING PANTOPRAZOLE SODIUM 40 MG TABLET DELAYED RELEASE 1 TABLET ORALLY ONCE A DAY TAKING CLOBETASOL PROPIONATE 0.05 % CREAM 1 APPLICATION EXTERNALLY TWICE A DAY TAKING FLONASE ALLERGY RELIEF 50 MCG/ACT SUSPENSION 1 SPRAY IN EACH NOSTRIL NASALLY ONCE A DAY TAKING ZOLOFT 25 MG TABLET 1 TABLET ORALLY ONCE A DAY TAKING IRON 325 (65 FE) MG TABLET 1 TABLET ORALLY ONCE A DAY TAKING NICOTINE 21 MG/24HR PATCH 24 HOUR 1 PATCH TO SKIN TRANSDERMAL ONCE A DAY TAKING GABAPENTIN 300 MG CAPSULE 1 CAPSULE ORALLY THREE TIMES DAILY TAKING ACETAMINOPHEN EXTRA STRENGTH 500 MG TABLET 2 TABLET NEEDED ORALLY TWICE DAILY TAKING HYDROCODONE-ACETAMINOPHEN 7.5-325 MG TABLET 1 TAB ORALLY FOR PAIN EVERY 8 HOURS NEEDED MDD3 UNKNOWN CLONAZEPAM 1 MG TABLET 1/2 TABLET ORALLY BID UNKNOWN VITAMIN D (ERGOCALCIFEROL) 1.25 MG (11464 UT) CAPSULE 1 CAPSULE ORALLY WEEKLY MEDICATION LIST REVIEWED AND RECONCILED WITH THE PATIENT PAST MEDICAL HISTORY CHRONIC LEFT FOOT PAIN ANXIETY AND DEPRESSION HTN DIABETES COPD OVER ACTIVE BLADDER WITH STRESS INCONTINENCE SEIZURES GERD HYERLIPIDEMIA SMOKER ARTHRITIS BILATERAL KNEES BILATERAL CARPAL TUNNEL SYNDROME PNEUMONIA X 2 NICOTINE DEPENDENCE, CIAGRETTES ALLERGIES PENICILLIN (FOR ALLERGIES USE ONLY): REACTION A CHILD AND TOLD NEVER TO TAKE - ALLERGY SURGICAL HISTORY ORIF LEFT FOOT AND ANKLE 06/18/2018 HYSTERECTOMY 1984 BILATERAL CARPAL TUNNEL RELEASE CHOLECYSTECTOMY LEFT FOOT SURGERY 2016 LEFT FOOT SURGERY 2013 SOCIAL HISTORY GENERAL: TOBACCO USE ARE YOU A:CURRENT SMOKER HOW MANY CIGARETTES A DAY DO YOU SMOKE?6-10 DOWN FROM TWO PACKS/DAY ARE YOU INTERESTED IN QUITTING?READY TO QUIT COUNSELED THE PATIENT ON TOBACCO USE, CESSATION [id number]/26/2021 PREVIOUS QUIT ATTEMPTS?YES, WITHIN THE LAST 6 MONTHS. LATEX QUESTIONNAIRE LATEX ALLERGY : HAVE YOU EVER DEVELOPED ANY TYPE OF REACTION AFTER HANDLING LATEX PRODUCTS SUCH RUBBER GLOVES, CONDOMS, DIAPHRAGMS, BALLOONS, SOCKS, OR UNDERWEAR?NO LATEX ALLERGY : HAVE YOU EVER DEVELOPED ANY TYPE OF REACTION DURING OR AFTER DENTAL APPOINTMENT, VAGINAL/RECTAL EXAMINATION, SURGICAL PROCEDURE, OR ANY OTHER EXPOSURE?NO DATE ASKED : 09/01/2020 LATEX RISK : HAVE YOU EVER HAD ANY DIFFICULTY BREATHING OR HIVES AFTER EATING OR HANDLING ANY FRUITS, OR VEGETABLES; SUCH KIWI, BANANAS, STONE FRUITS, OR CHESTNUTSNO LATEX RISK : DO YOU HAVE A PREVIOUS PERSONAL HISTORY OF MORE THAN NINE SURGERIES, SPINA BIFIDA, OR REPEATED CATHERIZATIONS? NO LATEX RISK : ARE YOU FREQUENTLY EXPOSED TO LATEX PRODUCTS IN YOUR OCCUPATION?NO ALCOHOL USE: NO. ALCOHOL SCREENING DID YOU HAVE A DRINK CONTAINING ALCOHOL IN THE PAST YEAR?YES HOW OFTEN DID YOU HAVE SIX OR MORE DRINKS ON ONE OCCASION IN THE PAST YEAR?NEVER (0 POINTS) HOW MANY DRINKS DID YOU HAVE ON A TYPICAL DAY WHEN YOU WERE DRINKING IN THE PAST YEAR?1 OR 2 (0 POINTS) HOW OFTEN DID YOU HAVE A DRINK CONTAINING ALCOHOL IN THE PAST YEAR?MONTHLY OR LESS (1 POINT) POINTS1 INTERPRETATIONNEGATIVE RECREATIONAL DRUG USE DRUG USE?NO CAFFEINE CAFFEINE USE?YES HOW OFTEN AND HOW MUCH? COFFEE 2-3 CUPS PER DAY DIET PEPSI 4 12 OX CANS PER DAY EPISCOPALIAN [id number] [employer] LANGUAGES SPOKEN:BRAZILIAN EDUCATION LEVEL OF EDUCATION:NOT FINISHED HIGH SCHOOL LEARNING BARRIERS / SPECIAL NEEDS BARRIERS TO LEARNING?YES COMMENTS STATES IS SLOW TO COMPREHEND WRITTEN INFORMATION. HEARING IMPAIRED?NO VISION IMPAIRED?YES COGNITIVELY IMPAIRED?NO :CORRECTIVE LENSES READINESS TO LEARN?YES LEARNING PREFERENCES?YES :DEMONSTRATION/VERBAL INSTRUCTION LEARNING CAPABILITIES PRESENT?YES EMOTIONAL BARRIERS?NO SPECIAL DEVICES?YES ROLLING WALKER, PORTABLE OXYGEN 2 LMIN DURING NIGHT AND NEEDED. :WALKER, WHEELCHAIR INSPECTOR SET UP AND LAY OUT NEEDED?NO DOMESTIC VIOLENCE DO YOU FEEL SAFE IN YOUR ENVIRONMENT?YES OCCUPATION: DISABLED. DIET: REGULAR. EXERCISE: STATES EXERCISES DAILY AND WALKS ALSO.. MARITAL STATUS: .. OTHERS AT HOME: SON, SON'S FIANCEE, 2 GRANDCHILDREN. TODAY'S VISIT 04/04/20 PATIENT DESCRIBES PAIN :IT COMES AND GOES, THROBBING, SHOOTING FROM 0-10, WHAT LEVEL IS YOUR PAIN TODAY?6 PRECIPITATING FACTORS LACK OF MEDS ALLEVIATING FACTORS MEDS IMPACT ON FUNCTION YES - PFS REFERRAL NEEDED?NO CLERGY REFERRAL NEEDED?NO PUBLIC HEALTH REFERRAL NEEDED?NO WAS THE PROVIDER NOTIFIED OF ANY PERTINENT INFO?NO HAS THE PATIENT BEEN EDUCATED REGARDING HIS/HER PLAN OF CARE?YES HAS THE PATIENT BEEN EDUCATED REGARDING PAIN, THE RISK FOR PAIN, THE IMPORTANCE OF EFFECTIVE PAIN MANAGEMENT, AND THE PAIN ASSESSMENT PROCESS?YES HOUSING: STAYING IN SON'S HOUSE. WAITING FOR APARTMENT TO BECOME AVAILABLE.. ADVANCE DIRECTIVE ADVANCE DIRECTIVE DISCUSSED WITH PATIENT:YES HAS NO HEALTH CARE PROXY, INFORMATION GIVEN, DECLINES ASSISTANCE HOSPITALIZATION/MAJOR DIAGNOSTIC PROCEDURE CHILDBIRTH PNEUMONIA X 2 SURGERIES FOOT INFECTION AND CARDIAC 02/11/2021 REVIEW OF SYSTEMS CONSTITUTIONAL: ANY RECENT FEVER NO . CHILLS NO . WEIGHT CHANGE OF UNKNOWN REASONS NO . GASTROENTEROLOGY: NEW UNEXPLAINABLE CHANGES IN BOWEL CONTROL NO . CONSTIPATION NO . GENITOURINARY: ANY NEW CHANGE IN BLADDER CONTROL? NO . NEUROLOGY: NEW ONSET DIZZINESS OR NEUROLOGICAL CHANGES NOT MENTIONED NO . NEW NUMBNESS OR PAIN PATTERNS NOT MENTIONED AND PERTINENT TO TODAY'S VISIT NO . CARDIOLOGY: NEW CHEST PRESSURE NO . PATIENT DENIES NO . RESPIRATORY: UNEXPLAINABLE COUGH NO . NEW SHORTNESS OF BREATH NO . VITAL SIGNS WT 339.6 LBS, HT 72 IN, BMI 46.05 INDEX, BP 143/97 MM HG, HR 76 /MIN, RR 18 /MIN, TEMP 98.1 F, OXYGEN SAT % 93%, SAFE IN ENV? (Y/N) YES, REVIEWED BY: PHILLY GILMORE MA. EXAMINATION GENERAL EXAMINATION: GENERALNO ACUTE DISTRESS, WELL NOURISHED AND HYDRATED. PSYCHAPPROPRIATE MOOD AND AFFECT . LUNGS:CLEAR TO AUSCULTATION BILATERALLY, NO WHEEZES, RHONCHI, RALES. HEART:NO MURMURS, REGULAR RATE AND RHYTHM. 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 GIVEN PRESENTING SYMPTOMS RECOMMENDED INCREASING GABAPENTIN TO 400 MG 3 TIMES A DAY WITH FOLLOW-UP IN 2 MONTHS. PATIENT HAS EXPRESSED UNDERSTANDING OF AND WAS IN AGREEMENT WITH TREATMENT PLAN. GIVEN TIME TO ASK QUESTIONS AND EXPRESS CONCERNS. , ISTOP REGISTRY REVIEWED AND DEMONSTRATES COMPLLIANCE. (REF #[id number] ) BRINGS IN MEDICATIONS WHICH IS APPROPRIATE FOR WHAT WAS DISPENSED. RECENT URINE TOXICOLOGY REVIEWED. NO UNAUTHORIZED MEDICATIONS. NO ILLICIT SUBSTANCES AND PRESCRIBED MEDICATIONS WERE PRESENT. PROCEDURE CODES FA211 ESTABILISHED PATIENT [facility] CHARGE DISPOSITION & COMMUNICATION FOLLOW UP 2 MONTHS (REASON: MED INCREASE ) ELECTRONICALLY SIGNED BY ROMAN KOVACS ON 03/26/2021 AT 09:07 AM EDT DISCLAIMER : THIS IS A VISIT SUMMARY EXTRACTED FROM THE [employer] CHART. IT IS NOT A COPY OF THE [employer] PROGRESS NOTE. DA
== END ==
LOC: M PAIN 09:45
PROVIDERS: ATTEND Family Medicine
DX: M79.2 Neuralgia and neuritis, unspecified (principal); G89.29 Other chronic pain; E11.9 Type 2 diabetes mellitus without complications; J44.9 Chronic obstructive pulmonary disease, unspecified; K21.9 Gastro-esophageal reflux disease without esophagitis; F17.210 Nicotine dependence, cigarettes, uncomplicated; Z86.14 Personal history of Methicillin resistant Staphylococcus aureus infection; Z86.59 Personal history of other mental and behavioral disorders; Z88.0 Allergy status to penicillin; E66.01 Morbid (severe) obesity due to excess calories; Z68.42 Body mass index [BMI] 45.0-49.9, adult; Z79.84 Long term (current) use of oral hypoglycemic drugs; Z79.899 Other long term (current) drug therapy

== ENCOUNTER → 2021-04-10 | Outpatient (CLI) | payer OTHER ==
--- NOTE | 2021-04-11 03:56 | REP ---
INDICATION: NICOTINE DEPENDENCE COMPARISON: 04/11/2020 TECHNIQUE: Axial noncontrast images from the thoracic inlet to the upper abdomen using low-dose lung screening technique (LDCT). FINDINGS: The bilateral lung mercado are essentially symmetric, well aerated and relatively clear. Minimal mildly progressive bilateral fibroatelectatic changes are appreciated. The previously identified 4 mm left apical nodule is less conspicuous and likely represents small area of scarring. No focal consolidation, new significant nodule, or mass. No pleural effusion. No pneumothorax. Tracheobronchial tree is patent. Cardiomegaly noted. IMPRESSION: Lung-RADS category 2. No suspicious nodule or mass. Mildly progressive fibroatelectatic changes suggested. Management recommendations include annual low-dose CT surveillance. <Electronically signed by Braulio Nino > 04/11/21 0359
== END ==
LOC: M RAD 11:29
PROVIDERS: ATTEND Nurse Practitioner Adult Health
DX: F17.218 Nicotine dependence, cigarettes, with other nicotine-induced disorders (principal)

== ENCOUNTER → 2021-05-23 | Outpatient (CLI) | payer OTHER ==
--- NOTE | 2021-05-25 04:33 | ECWPNPC ---
PATIENT NAME: LUIS CANTRELL : 1960 GENDER: FEMALE VISIT DATE: 05/23/2021 DISCHARGE DATE: 05/23/21 0944 VISIT LOCKED DATE TIME: PHYSICIAN: RIK DIAZ RESOURCE: RIK DIAZ REASON FOR APPOINTMENT 1. MED INCREASE HISTORY OF PRESENT ILLNESS GENERAL: HPI 61-YEAR-OLD FEMALE IN FOR CHRONIC PAIN FOLLOW-UP. AT LAST CLINIC VISIT PATIENT'S MEDICATION WAS INCREASED AND SHE FEELS THIS WAS BENEFICIAL. SHE RATES HER PAIN CURRENTLY AT A 6 OUT OF 10 FURTHER STATING THAT IT AVERAGES ABOUT A 4. SHE FEELS HER MEDICATIONS ARE HELPFUL AND DENIES MED SIDE EFFECTS AT THIS TIME.. -. FALL RISK SCREENING: SCREENING : NO FALLS REPORTED IN THE LAST YEAR. PAIN SCREENING: PATIENT HAS A COMPLAINT OF ACUTE OR CHRONIC PAIN :YES LOCATION OF PAIN:LOW BACK, LEFT HIP INTENSITY OF PAIN (SCALE OF 1 TO 10):6 AVERAGE IS 4. WHAT DOES YOUR PAIN FEEL LIKE:ACHING, BURNING, CONTINOUS, SHARP, STABBING, TENDER, THROBBING, SORE, SHOOTING DURATION:CONTINOUS, CONSTANT, AWAKENS FROM SLEEP PAIN IS INCREASED BY:ACTIVITIES, PROLONGED STANDING PAIN IS DECREASED BY:USE OF PAIN MEDICATIONS NURSING NOTE: -. PAIN CENTER INTAKE QUESTIONS: DO YOU HAVE A HISTORY OF MRSA? :YES DO YOU TAKE A BLOOD THINNERS? :YES ELOQUIS DO YOU HAVE ANY BLEEDING DISORDERS? :NO ANY NEW NUMBNESS OR WEAKNESS IN YOUR LEGS OR ARMS? :NO ANY PACEMAKER,DEFIBRILLATOR, OR DORSAL COLUMN STIMULATOR? :NO DO YOU HAVE ANY RASHES OR OPEN SORES? :NO ARE YOU ALLERGIC TO IV DYE? :NO ARE YOU DIABETIC? :YES ANY NEW PROBLEMS WITH YOUR MEDICATIONS? :NO HAVE YOU RECEIVED A VACCINE IN THE PAST 30 DAYS? :NO RIAN AND RIAN SINGLE DOSE 02/12/2021 DO YOU PLAN TO RECEIVE A VACCINE IN THE NEXT 21 DAYS? :NO DO YOU NEED ANY PRESCRIPTION? :YES HYDROCODONE, GABAPENTIN DO YOU TAKE ANY IMMUNOSUPPRESSIVE MEDICATIONS? :NO DO YOU HAVE ANY KIDNEY OR LIVER DISEASE? :NO IS THERE A CHANCE YOU COULD BE ? :NO ARE YOU BREAST FEEDING? :NO CURRENT MEDICATIONS TAKING PEPCID 20 MG TABLET 1 TAB ORALLY TWICE DAILY TAKING VESICARE 10 MG TABLET 1 TABLET ORALLY ONCE A DAY TAKING OXYGEN 5L/MIN VIA NC CONTINUOUS TAKING PROAIR HFA 108 (90 BASE) MCG/ACT AEROSOL SOLUTION 2 PUFFS NEEDED INHALATION QID PRN TAKING QUETIAPINE FUMARATE ER 400 MG TABLET EXTENDED RELEASE 24 HOUR 1 TABLET IN THE EVENING ORALLY TWICE DAILY TAKING ATORVASTATIN CALCIUM 40 MG TABLET 1 TABLET ORALLY ONCE A DAY TAKING LISINOPRIL 40 MG TABLET 1 TABLET ORALLY ONCE A DAY TAKING METFORMIN HCL 850 MG TABLET 1 TABLET WITH A MEAL ORALLY TWICE DAILY TAKING AMLODIPINE BESYLATE 10 MG TABLET 1 TABLET ORALLY ONCE A DAY TAKING METOPROLOL SUCCINATE 50 MG CAPSULE ER 24 HOUR SPRINKLE 1 CAPSULE ORALLY ONCE A DAY TAKING ZOLOFT 50 MG TABLET 1 TABLET ORALLY ONCE A DAY TAKING PANTOPRAZOLE SODIUM 40 MG TABLET DELAYED RELEASE 1 TABLET ORALLY ONCE A DAY TAKING CLOBETASOL PROPIONATE 0.05 % CREAM 1 APPLICATION EXTERNALLY TWICE A DAY TAKING FLONASE ALLERGY RELIEF 50 MCG/ACT SUSPENSION 1 SPRAY IN EACH NOSTRIL NASALLY ONCE A DAY TAKING ZOLOFT 25 MG TABLET 1 TABLET ORALLY ONCE A DAY TAKING IRON 325 (65 FE) MG TABLET 1 TABLET ORALLY ONCE A DAY TAKING NICOTINE 21 MG/24HR PATCH 24 HOUR 1 PATCH TO SKIN TRANSDERMAL ONCE A DAY TAKING GABAPENTIN 400 MG CAPSULE 1 CAPSULE ORALLY THREE TIMES DAILY TAKING HYDROCODONE-ACETAMINOPHEN 7.5-325 MG TABLET 1 TAB ORALLY FOR PAIN EVERY 8 HOURS NEEDED MDD3 NOT-TAKING ACETAMINOPHEN EXTRA STRENGTH 500 MG TABLET 2 TABLET NEEDED ORALLY TWICE DAILY UNKNOWN CLONAZEPAM 1 MG TABLET 1/2 TABLET ORALLY BID UNKNOWN VITAMIN D (ERGOCALCIFEROL) 1.25 MG (13091 UT) CAPSULE 1 CAPSULE ORALLY WEEKLY MEDICATION LIST REVIEWED AND RECONCILED WITH THE PATIENT PAST MEDICAL HISTORY CHRONIC LEFT FOOT PAIN ANXIETY AND DEPRESSION HTN DIABETES COPD OVER ACTIVE BLADDER WITH STRESS INCONTINENCE SEIZURES GERD HYERLIPIDEMIA SMOKER ARTHRITIS BILATERAL KNEES BILATERAL CARPAL TUNNEL SYNDROME PNEUMONIA X 2 NICOTINE DEPENDENCE, CIAGRETTES AFIB CHF ALLERGIES PENICILLIN (FOR ALLERGIES USE ONLY): REACTION A CHILD AND TOLD NEVER TO TAKE - ALLERGY SOCIAL HISTORY GENERAL: TOBACCO USE ARE YOU A:CURRENT SMOKER ARE YOU INTERESTED IN QUITTING?READY TO QUIT PREVIOUS QUIT ATTEMPTS?YES, WITHIN THE LAST 6 MONTHS. COUNSELED THE PATIENT ON TOBACCO USE, CESSATION [id number]/23/2021 HOW MANY CIGARETTES A DAY DO YOU SMOKE?6-10 DOWN FROM TWO PACKS/DAY LATEX QUESTIONNAIRE LATEX ALLERGY : HAVE YOU EVER DEVELOPED ANY TYPE OF REACTION AFTER HANDLING LATEX PRODUCTS SUCH RUBBER GLOVES, CONDOMS, DIAPHRAGMS, BALLOONS, SOCKS, OR UNDERWEAR?NO LATEX ALLERGY : HAVE YOU EVER DEVELOPED ANY TYPE OF REACTION DURING OR AFTER DENTAL APPOINTMENT, VAGINAL/RECTAL EXAMINATION, SURGICAL PROCEDURE, OR ANY OTHER EXPOSURE?NO LATEX RISK : HAVE YOU EVER HAD ANY DIFFICULTY BREATHING OR HIVES AFTER EATING OR HANDLING ANY FRUITS, OR VEGETABLES; SUCH KIWI, BANANAS, STONE FRUITS, OR CHESTNUTSNO LATEX RISK : DO YOU HAVE A PREVIOUS PERSONAL HISTORY OF MORE THAN NINE SURGERIES, SPINA BIFIDA, OR REPEATED CATHERIZATIONS? NO LATEX RISK : ARE YOU FREQUENTLY EXPOSED TO LATEX PRODUCTS IN YOUR OCCUPATION?NO DATE ASKED : 05/23/2021 ALCOHOL USE: YES. OCCASIONAL. ALCOHOL SCREENING DID YOU HAVE A DRINK CONTAINING ALCOHOL IN THE PAST YEAR?YES HOW OFTEN DID YOU HAVE SIX OR MORE DRINKS ON ONE OCCASION IN THE PAST YEAR?NEVER (0 POINTS) HOW MANY DRINKS DID YOU HAVE ON A TYPICAL DAY WHEN YOU WERE DRINKING IN THE PAST YEAR?1 OR 2 (0 POINTS) HOW OFTEN DID YOU HAVE A DRINK CONTAINING ALCOHOL IN THE PAST YEAR?MONTHLY OR LESS (1 POINT) POINTS1 INTERPRETATIONNEGATIVE RECREATIONAL DRUG USE DRUG USE?NO CAFFEINE CAFFEINE USE?YES HOW OFTEN AND HOW MUCH? COFFEE 2-3 CUPS PER DAY DIET PEPSI 4 12 OX CANS PER DAY PENTECOSTALISM [id number] FAITH LANGUAGE LANGUAGES SPOKEN:TUNIS[place] EDUCATION LEVEL OF EDUCATION:NOT FINISHED HIGH SCHOOL LEARNING BARRIERS / SPECIAL NEEDS BARRIERS TO LEARNING?YES COMMENTS STATES IS SLOW TO COMPREHEND WRITTEN INFORMATION. 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 DIET: REGULAR. EXERCISE: STATES EXERCISES DAILY AND WALKS ALSO.. MARITAL STATUS: .. OTHERS AT HOME: SON, SON'S FIANCEE, 2 GRANDCHILDREN. TODAY'S VISIT 04/04/20 PATIENT DESCRIBES PAIN :IT COMES AND GOES, THROBBING, SHOOTING FROM 0-10, WHAT LEVEL IS YOUR PAIN TODAY?6 PRECIPITATING FACTORS LACK OF MEDS ALLEVIATING FACTORS MEDS IMPACT ON FUNCTION YES - PFS REFERRAL NEEDED?NO CLERGY REFERRAL NEEDED?NO PUBLIC HEALTH REFERRAL NEEDED?NO WAS THE PROVIDER NOTIFIED OF ANY PERTINENT INFO?NO HAS THE PATIENT BEEN EDUCATED REGARDING HIS/HER PLAN OF CARE?YES HAS THE PATIENT BEEN EDUCATED REGARDING PAIN, THE RISK FOR PAIN, THE IMPORTANCE OF EFFECTIVE PAIN MANAGEMENT, AND THE PAIN ASSESSMENT PROCESS?YES HOUSING: STAYING IN SON'S HOUSE. WAITING FOR APARTMENT TO BECOME AVAILABLE.. ADVANCE DIRECTIVE ADVANCE DIRECTIVE DISCUSSED WITH PATIENT:YES HAS NO HEALTH CARE PROXY, INFORMATION GIVEN, DECLINES ASSISTANCE REVIEW OF SYSTEMS CONSTITUTIONAL: ANY RECENT FEVER NO . CHILLS NO . WEIGHT CHANGE OF UNKNOWN REASONS NO . GASTROENTEROLOGY: NEW UNEXPLAINABLE CHANGES IN BOWEL CONTROL NO . CONSTIPATION NO . GENITOURINARY: ANY NEW CHANGE IN BLADDER CONTROL? NO . NEUROLOGY: NEW ONSET DIZZINESS OR NEUROLOGICAL CHANGES NOT MENTIONED NO . NEW NUMBNESS OR PAIN PATTERNS NOT MENTIONED AND PERTINENT TO TODAY'S VISIT NO . CARDIOLOGY: NEW CHEST PRESSURE NO . PATIENT DENIES NO . RESPIRATORY: UNEXPLAINABLE COUGH NO . NEW SHORTNESS OF BREATH NO . VITAL SIGNS WT 349 LBS, HT 72 IN, BMI 47.33 INDEX, BP 129/79 MM HG, HR 64 /MIN, RR 20 /MIN, TEMP 96.9 F, OXYGEN SAT % 98%, SAFE IN ENV? (Y/N) YES, NA INITIALS IN 08:56, REVIEWED BY: PHILLY GILMORE MA. EXAMINATION GENERAL EXAMINATION: GENERALNO ACUTE DISTRESS, WELL NOURISHED AND HYDRATED. PSYCHAPPROPRIATE MOOD AND AFFECT . LUNGS:LUNG SOUNDS DECREASED BILATERALLY . HEART:NO MURMURS, REGULAR RATE AND RHYTHM. 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 GIVEN PRESENTING SYMPTOMS RECOMMEND CONTINUATION OF CURRENT MEDICATION REGIMEN WITH FOLLOW-UP IN 3 MONTHS. PATIENT HAS EXPRESSED UNDERSTANDING OF AND WAS IN AGREEMENT WITH TREATMENT PLAN. GIVEN TIME ASK QUESTIONS AND EXPRESS CONCERNS. ISTOP REGISTRY REVIEWED AND DEMONSTRATES COMPLLIANCE. (REF #[id number] ) BRINGS IN MEDICATIONS WHICH IS APPROPRIATE FOR WHAT WAS DISPENSED. RECENT URINE TOXICOLOGY REVIEWED. NO UNAUTHORIZED MEDICATIONS. NO ILLICIT SUBSTANCES AND PRESCRIBED MEDICATIONS WERE PRESENT. PROCEDURE CODES FA211 ESTABILISHED PATIENT [facility] CHARGE DISPOSITION & COMMUNICATION FOLLOW UP 3 MONTHS (REASON: NEURALGIA ) ELECTRONICALLY SIGNED BY ROMAN KVOACS ON 05/24/2021 AT 08:54 AM EDT DISCLAIMER : THIS IS A VISIT SUMMARY EXTRACTED FROM THE [employer] CHART. IT IS NOT A COPY OF THE [employer] PROGRESS NOTE. DA
== END ==
LOC: M PAIN 09:15
PROVIDERS: ATTEND Family Medicine
DX: M79.2 Neuralgia and neuritis, unspecified (principal); G89.29 Other chronic pain; E11.9 Type 2 diabetes mellitus without complications; J44.9 Chronic obstructive pulmonary disease, unspecified; K21.9 Gastro-esophageal reflux disease without esophagitis; F17.210 Nicotine dependence, cigarettes, uncomplicated; Z86.14 Personal history of Methicillin resistant Staphylococcus aureus infection; Z86.59 Personal history of other mental and behavioral disorders; Z88.0 Allergy status to penicillin; E66.01 Morbid (severe) obesity due to excess calories; Z68.42 Body mass index [BMI] 45.0-49.9, adult; Z79.01 Long term (current) use of anticoagulants; Z79.84 Long term (current) use of oral hypoglycemic drugs; Z79.899 Other long term (current) drug therapy

== ENCOUNTER → 2021-06-20 | Outpatient (CLI) | payer OTHER ==
--- NOTE | 2021-06-21 15:32 | SLEEPHOME ---
DATE: 06/20/2021 ORDERED BY: Moshe Hernández MD Diagnostic home sleep testing was performed due to concern for the obstructive sleep apnea syndrome. For testing, a nocturnal T3 respiratory monitoring device was used. Continuous record was made of pulse, oxygen saturation, air flow, chest and abdominal strain, and body position. Nine hours and 59 minutes of data were reviewed. There were 5 hours and 58 minutes marked as time in bed. During the interval marked time in bed, there were 95 respiratory events identified of 10 seconds in duration or greater for a respiratory event index of 15.9. The events were primarily obstructive. Baseline pulse rate was 33 beats per minute. Pulse rate ranged 44 to 111. Baseline saturation was 89%. Saturations fell as low as 56% and testing was performed in both the supine and nonsupine positions. IMPRESSION: Abnormal home sleep testing with repetitive respiratory events and oxygen desaturations to 56% is consistent with the obstructive sleep apnea syndrome. RECOMMENDATION: The patient should be encouraged to pursue a formal sleep evaluation.
== END ==
LOC: M SLEEP HO 09:57
PROVIDERS: ATTEND Internal Medicine Cardiovascular Disease
DX: I27.81 Cor pulmonale (chronic) (principal); G47.33 Obstructive sleep apnea (adult) (pediatric)

== ENCOUNTER → 2021-06-20 | Outpatient (CLI) | payer OTHER ==
[2021-06-20 12:53] LABS: ALBUMIN 3.7 GM/DL (3.2-5.2); BLOOD UREA NITROGEN 15 MG/DL (7-18); CALCIUM LEVEL 9.1 MG/DL (8.8-10.2); CARBON DIOXIDE LEVEL 42 MEQ/L (21-32); CHLORIDE LEVEL 100 MEQ/L (98-107); GLOMERULAR FILTRATION RATE > 60.0 (>45); GLUCOSE, FASTING 98 MG/DL (70-100); POTASSIUM SERUM 4.1 MEQ/L (3.5-5.1); SODIUM LEVEL 144 MEQ/L (136-145)
[2021-06-20 12:54] LABS: DIGOXIN LEVEL 1.3 NG/ML (0.5-2.0); NT-PRO BNP 824 PG/ML (<125)
== END ==
LOC: M LAB 10:21
PROVIDERS: ATTEND Physician Assistant
DX: I50.32 Chronic diastolic (congestive) heart failure (principal)

== ENCOUNTER → 2021-08-23 | Outpatient (CLI) | payer OTHER | LOC: M PAIN 11:00 | PROVIDERS: ATTEND Anesthesiology | DX: M79.2 Neuralgia and neuritis, unspecified (principal); G89.29 Other chronic pain; E11.9 Type 2 diabetes mellitus without complications; J44.9 Chronic obstructive pulmonary disease, unspecified; K21.9 Gastro-esophageal reflux disease without esophagitis; F17.210 Nicotine dependence, cigarettes, uncomplicated; Z86.14 Personal history of Methicillin resistant Staphylococcus aureus infection; Z86.59 Personal history of other mental and behavioral disorders; Z88.0 Allergy status to penicillin; E66.01 Morbid (severe) obesity due to excess calories; Z68.42 Body mass index [BMI] 45.0-49.9, adult; Z79.84 Long term (current) use of oral hypoglycemic drugs; Z79.899 Other long term (current) drug therapy ==

== ENCOUNTER → 2021-09-17 | Outpatient (CLI) | payer OTHER ==
--- NOTE | 2021-09-18 17:40 | REPVR ---
PROCEDURE INFORMATION: Exam: MR Lumbar Spine Without Contrast Exam date and time: 09/17/2021 12:31 PM Age: 61 years old Clinical indication: Low back pain; Additional info: Lumbar radiculopathy TECHNIQUE: Imaging protocol: Multiplanar magnetic resonance images of the lumbar spine without intravenous contrast. COMPARISON: No relevant prior studies available. FINDINGS: Vertebral body heights are maintained. Modic type 1 edematous degenerative endplate change prominently at the L5-S1 level. No cord compression. No abnormal cord signal. Conus medullaris terminates at the L1 level. Paravertebral soft tissues are unremarkable. L1-L2: No significant canal or foraminal narrowing. L2-L3: Slight broad-based disc bulge without significant canal or foraminal narrowing. L3-L4: Broad-based disc bulge and facet hypertrophy cause mild canal narrowing with mild right and [id number] left foraminal narrowing. L4-L5: Broad-based disc bulge and facet hypertrophy cause mild canal narrowing with slight effacement of the bilateral lateral recesses. Mild to moderate bilateral foraminal narrowing. L5-S1: Broad-based disc bulge and facet hypertrophy cause mild canal narrowing and moderate bilateral foraminal narrowing. IMPRESSION: Multilevel spondylotic changes of the lumbar spine, as detailed above. Electronically signed by: Nathan German On 09/18/2021 17:40:24 PM
== END ==
LOC: M PLARAD 08-31 11:39 → M RAD 10:13
PROVIDERS: ATTEND Anesthesiology
DX: M51.16 Intervertebral disc disorders with radiculopathy, lumbar region (principal); M47.26 Other spondylosis with radiculopathy, lumbar region

== ENCOUNTER → 2021-10-05 | Outpatient (CLI) | payer OTHER | LOC: M PAIN 09:30 | PROVIDERS: ATTEND Anesthesiology | DX: M79.2 Neuralgia and neuritis, unspecified (principal); M51.16 Intervertebral disc disorders with radiculopathy, lumbar region; M48.062 Spinal stenosis, lumbar region with neurogenic claudication; G89.29 Other chronic pain; E11.9 Type 2 diabetes mellitus without complications; J44.9 Chronic obstructive pulmonary disease, unspecified; K21.9 Gastro-esophageal reflux disease without esophagitis; F17.210 Nicotine dependence, cigarettes, uncomplicated; Z86.14 Personal history of Methicillin resistant Staphylococcus aureus infection; Z86.59 Personal history of other mental and behavioral disorders; Z88.0 Allergy status to penicillin; E66.01 Morbid (severe) obesity due to excess calories; Z68.42 Body mass index [BMI] 45.0-49.9, adult; Z79.84 Long term (current) use of oral hypoglycemic drugs; Z79.899 Other long term (current) drug therapy ==

== ENCOUNTER → 2022-01-16 | Outpatient (CLI) | payer OTHER | LOC: M SLEEP 20:00 | PROVIDERS: ATTEND Nurse Practitioner Adult Health | DX: G47.33 Obstructive sleep apnea (adult) (pediatric) (principal) ==

== ENCOUNTER → 2022-01-18 | Outpatient (CLI) | payer OTHER | LOC: M PAIN 13:15 | PROVIDERS: ATTEND Nurse Practitioner Family | DX: M79.2 Neuralgia and neuritis, unspecified (principal); M51.16 Intervertebral disc disorders with radiculopathy, lumbar region; M48.062 Spinal stenosis, lumbar region with neurogenic claudication; G89.29 Other chronic pain; E11.9 Type 2 diabetes mellitus without complications; J44.9 Chronic obstructive pulmonary disease, unspecified; K21.9 Gastro-esophageal reflux disease without esophagitis; F17.210 Nicotine dependence, cigarettes, uncomplicated; Z86.14 Personal history of Methicillin resistant Staphylococcus aureus infection; Z86.59 Personal history of other mental and behavioral disorders; Z88.0 Allergy status to penicillin; E66.01 Morbid (severe) obesity due to excess calories; Z68.42 Body mass index [BMI] 45.0-49.9, adult; Z79.84 Long term (current) use of oral hypoglycemic drugs; Z79.899 Other long term (current) drug therapy ==

== ENCOUNTER 2022-02-06 14:18 | Inpatient (IN) | payer OTHER ==
[~2022-02-06] VITALS: Ht 177.8 cm; Wt 151.0 kg
[2022-02-06 14:59] LABS: VENOUS BASE EXCESS 9.3 (-2.0-2.0); VENOUS HCO3 37.6 MEQ/L (23.0-27.0); VENOUS O2 SATURATION 56.2 % (60.0-80.0); VENOUS PARTIAL PRESSURE CO2 70.3 mmHg (38.0-50.0); VENOUS PARTIAL PRESSURE O2 31.1 mmHg (30.0-50.0); VENOUS PH 7.346 UNITS (7.330-7.430); VENOUS STANDARD HCO3 32.1 MEQ/L; VENOUS TOTAL CO2 39.8 MEQ/L (24.0-28.0)
[2022-02-06 15:04] LABS: BASO % 0.3 % (0.0-1.0); EOS # 0.1 10^3/uL (0.0-0.5); EOS % 1.1 % (0.0-3.0); HEMATOCRIT 41.8 % (36.0-47.0); HEMOGLOBIN 11.4 g/dl (12.0-15.5); LYMPH # 1.4 10^3/uL (1.5-5.0); LYMPH % 15.5 % (24.0-44.0); MEAN CORPUSCULAR HEMOGLOBIN 22.9 pg (27.0-33.0); MEAN CORPUSCULAR HGB CONC 27.3 g/dl (32.0-36.5); MEAN CORPUSCULAR VOLUME 84.1 fl (80.0-96.0); MONO # 0.4 10^3/uL (0.0-0.8); MONO % 4.7 % (2.0-8.0); NEUTROPHILS # 7.3 10^3/uL (1.5-8.5); PLATELET COUNT, AUTOMATED 264 10^3/uL (150-450); RED BLOOD COUNT 4.97 10^6/uL (4.00-5.40); WHITE BLOOD COUNT 9.3 10^3/uL (4.0-10.0)
[2022-02-06 15:13] LABS: INR 1.17; PROTHROMBIN TIME 15.3 SECONDS (12.7-14.5)
[2022-02-06 15:14] LABS: PARTIAL THROMBOPLASTIN TIME 32.7 SECONDS (25.9-37.0)
[2022-02-06 15:22] LABS: ERYTHROCYTE SEDIMENTATION RATE 10 mm/hr (0-30)
[2022-02-06 15:33] LABS: MB/CK RELATIVE INDEX 3.03 (< OR =4)
[2022-02-06 15:43] LABS: ALBUMIN 3.1 GM/DL (3.2-5.2); ALT/SGPT 32 U/L (12-78); BILIRUBIN,DIRECT 0.2 MG/DL (0.0-0.2); BILIRUBIN,TOTAL 0.5 MG/DL (0.2-1.0); BLOOD UREA NITROGEN 17 MG/DL (7-18); C REACTIVE PROTEIN QUANTITATIV 1.93 MG/DL (0.00-0.30); CALCIUM LEVEL 8.9 MG/DL (8.8-10.2); CARBON DIOXIDE LEVEL 37 MEQ/L (21-32); CHLORIDE LEVEL 105 MEQ/L (98-107); CREATININE FOR GFR 0.85 MG/DL (0.55-1.30); DIGOXIN LEVEL 1.1 NG/ML (0.5-2.0); GLOMERULAR FILTRATION RATE > 60.0 (>45); GLUCOSE, FASTING 113 MG/DL (70-100); NT-PRO BNP 2029 PG/ML (<125); SODIUM LEVEL 142 MEQ/L (136-145); TOTAL PROTEIN 6.8 GM/DL (6.4-8.2)
[2022-02-06] MEDS ORDERED: FUROSEMIDE 100MG/10ML VIAL (J1940) IV ONE (16:15)
[2022-02-06] MEDS ORDERED: GABA-283 PO (16:32)
[2022-02-06] MEDS ORDERED: MAGN400T2 PO (16:32)
[2022-02-06] MEDS ORDERED: METO50TA7 PO (16:32)
[2022-02-06] MEDS ORDERED: TORS20TA2 PO (16:32)
[2022-02-06] MEDS ORDERED: DIGO0.253 PO (16:32)
[2022-02-06] MEDS ORDERED: ATOR40TA75 PO (16:32)
[2022-02-06] MEDS ORDERED: ELIQ5TAB PO (16:35)
[2022-02-06] MEDS ORDERED: HOME MED LIST COMPLETE! XX SCH (16:40)
[2022-02-06] MEDS ORDERED: ALBUTEROL SULFATE 2.5 MG/0.5 ML INH NEB SOLN NEB PRN (17:55)
[2022-02-06] MEDS ORDERED: ANEXSIA, NORCO 7.5MG/325MG TABLET(HYDROCODONE/APAP) PO PRN (17:55)
[2022-02-06] MEDS ORDERED: GLUCOSE 4GM CHEW TABLET PO PRN (18:15)
[2022-02-06] MEDS ORDERED: DEXTROSE 50% 50 ML SYRINGE IV PRN (18:15)
[2022-02-06] MEDS ORDERED: GLUCAGON INJ 1MG VIAL SC PRN (18:15)
[2022-02-06] MEDS: GABAPENTIN 400MG CAP PO SCH (20:01)
[2022-02-06] MEDS: MAGNESIUM OXIDE 400MG TAB (MAG-OX) PO SCH (20:01)
[2022-02-06] MEDS: APIXABAN 5 MG TAB (ELIQUIS) PO SCH (20:01)
[2022-02-06] MEDS: HumaLOG INSULIN (NovoLOG) PER UNIT SC SCH (20:02)
[2022-02-06] MEDS: QUEtiapine FUMARATE **XR** 200MG TABLET PO SCH ×2 (20:02→21:38)
[2022-02-06 20:35] VITALS: BP 139/89
[2022-02-06] MEDS ORDERED: METOPROLOL TART 50 MG TAB PO SCH (21:00)
[2022-02-06] MEDS: ADVAIR HFA 230/21MCG INHALER INH SCH (21:39)
[2022-02-06] MEDS ORDERED: FUROSEMIDE injection 250 MG in D5W 225 ML IV SCH (22:00)
[2022-02-07] MEDS: ANEXSIA, NORCO 7.5MG/325MG TABLET(HYDROCODONE/APAP) PO PRN ×3 (02:59→16:07)
[2022-02-07 06:00] VITALS: BP 120/69
[2022-02-07] MEDS: TIOTROPIUM INHALER/CAPSULE (SPIRIVA) INH SCH (07:23)
[2022-02-07] MEDS: ADVAIR HFA 230/21MCG INHALER INH SCH ×2 (07:23→19:17)
[2022-02-07 07:30] VITALS: BP 109/63
[2022-02-07 07:30] LABS: BASO % 0.2 % (0.0-1.0); EOS # 0.1 10^3/uL (0.0-0.5); EOS % 1.5 % (0.0-3.0); HEMATOCRIT 38.2 % (36.0-47.0); HEMOGLOBIN 10.6 g/dl (12.0-15.5); LYMPH # 1.3 10^3/uL (1.5-5.0); LYMPH % 15.6 % (24.0-44.0); MEAN CORPUSCULAR HEMOGLOBIN 22.8 pg (27.0-33.0); MEAN CORPUSCULAR HGB CONC 27.7 g/dl (32.0-36.5); MEAN CORPUSCULAR VOLUME 82.2 fl (80.0-96.0); MONO # 0.6 10^3/uL (0.0-0.8); MONO % 6.8 % (2.0-8.0); NEUTROPHILS # 6.3 10^3/uL (1.5-8.5); NEUTROPHILS % 75.4 % (36.0-66.0); PLATELET COUNT, AUTOMATED 239 10^3/uL (150-450); RED BLOOD COUNT 4.65 10^6/uL (4.00-5.40); WHITE BLOOD COUNT 8.4 10^3/uL (4.0-10.0)
[2022-02-07 07:58] LABS: BLOOD UREA NITROGEN 13 MG/DL (7-18); CALCIUM LEVEL 8.6 MG/DL (8.8-10.2); CARBON DIOXIDE LEVEL 41 MEQ/L (21-32); CHLORIDE LEVEL 97 MEQ/L (98-107); CREATININE FOR GFR 0.68 MG/DL (0.55-1.30); GLOMERULAR FILTRATION RATE > 60.0 (>45); GLUCOSE, FASTING 119 MG/DL (70-100); MAGNESIUM LEVEL 1.6 MG/DL (1.8-2.4); POTASSIUM SERUM 4.1 MEQ/L (3.5-5.1); SODIUM LEVEL 142 MEQ/L (136-145)
[2022-02-07] MEDS: METOPROLOL TART 25 MG TABLET PO SCH ×3 (09:00→20:07)
[2022-02-07] MEDS ORDERED: SERTRALINE HCL 50 MG TAB PO SCH (09:00)
[2022-02-07] MEDS: SERTRALINE HCL 25 MG TABLET PO SCH (09:37)
[2022-02-07] MEDS: ATORVASTATIN 20 MG TAB PO SCH (09:37)
[2022-02-07] MEDS: APIXABAN 5 MG TAB (ELIQUIS) PO SCH ×2 (09:38→20:08)
[2022-02-07] MEDS: POTASSIUM CHLORIDE 10MEQ SR TABLET PO SCH (09:38)
[2022-02-07] MEDS: GABAPENTIN 400MG CAP PO SCH ×2 (09:39→20:08)
[2022-02-07] MEDS: DIGOXIN 0.25 MG TAB PO SCH (09:39)
[2022-02-07] MEDS: MAGNESIUM OXIDE 400MG TAB (MAG-OX) PO SCH ×2 (09:39→20:08)
[2022-02-07] MEDS: HumaLOG INSULIN (NovoLOG) PER UNIT SC SCH ×4 (09:41→20:01)
[2022-02-07 10:00] VITALS: BP 143/77
[2022-02-07] MEDS ORDERED: MAGNESIUM OXIDE 400MG TAB (MAG-OX) PO ONE (12:00)
[2022-02-07 14:30] VITALS: BP 112/67
[2022-02-07 19:48] VITALS: BP 111/73
[2022-02-07] MEDS: QUEtiapine FUMARATE **XR** 200MG TABLET PO SCH (20:08)
[2022-02-08] MEDS: ANEXSIA, NORCO 7.5MG/325MG TABLET(HYDROCODONE/APAP) PO PRN ×4 (03:45→21:56)
[2022-02-08 04:59] VITALS: BP 115/74
[2022-02-08 06:00] LABS: BASO % 0.3 % (0.0-1.0); EOS # 0.1 10^3/uL (0.0-0.5); EOS % 1.5 % (0.0-3.0); HEMATOCRIT 38.7 % (36.0-47.0); HEMOGLOBIN 10.6 g/dl (12.0-15.5); LYMPH # 1.4 10^3/uL (1.5-5.0); LYMPH % 17.5 % (24.0-44.0); MEAN CORPUSCULAR HEMOGLOBIN 22.6 pg (27.0-33.0); MEAN CORPUSCULAR HGB CONC 27.4 g/dl (32.0-36.5); MEAN CORPUSCULAR VOLUME 82.3 fl (80.0-96.0); MONO # 0.6 10^3/uL (0.0-0.8); MONO % 7.5 % (2.0-8.0); NEUTROPHILS # 5.8 10^3/uL (1.5-8.5); NEUTROPHILS % 72.8 % (36.0-66.0); PLATELET COUNT, AUTOMATED 222 10^3/uL (150-450)
[2022-02-08] MEDS ORDERED: FUROSEMIDE injection 250 MG in D5W 225 ML IV SCH (06:00)
[2022-02-08 07:00] LABS: BLOOD UREA NITROGEN 17 MG/DL (7-18); CALCIUM LEVEL 8.4 MG/DL (8.8-10.2); CARBON DIOXIDE LEVEL 48 MEQ/L (21-32); CHLORIDE LEVEL 91 MEQ/L (98-107); CREATININE FOR GFR 0.78 MG/DL (0.55-1.30); GLOMERULAR FILTRATION RATE > 60.0 (>45); GLUCOSE, FASTING 113 MG/DL (70-100); MAGNESIUM LEVEL 1.8 MG/DL (1.8-2.4); POTASSIUM SERUM 3.7 MEQ/L (3.5-5.1); SODIUM LEVEL 140 MEQ/L (136-145)
[2022-02-08] MEDS: ADVAIR HFA 230/21MCG INHALER INH SCH ×2 (07:22→19:03)
[2022-02-08] MEDS: TIOTROPIUM INHALER/CAPSULE (SPIRIVA) INH SCH (07:22)
[2022-02-08] MEDS: HumaLOG INSULIN (NovoLOG) PER UNIT SC SCH ×4 (08:06→21:00)
[2022-02-08] MEDS: SERTRALINE HCL 25 MG TABLET PO SCH (08:07)
[2022-02-08] MEDS: MAGNESIUM OXIDE 400MG TAB (MAG-OX) PO SCH ×2 (08:07→21:48)
[2022-02-08] MEDS: APIXABAN 5 MG TAB (ELIQUIS) PO SCH ×2 (08:07→21:47)
[2022-02-08] MEDS: GABAPENTIN 400MG CAP PO SCH ×2 (08:07→21:47)
[2022-02-08] MEDS: ATORVASTATIN 20 MG TAB PO SCH (08:07)
[2022-02-08] MEDS: POTASSIUM CHLORIDE 10MEQ SR TABLET PO SCH (08:07)
[2022-02-08] MEDS: METOPROLOL TART 25 MG TABLET PO SCH ×2 (08:10→21:51)
[2022-02-08] MEDS: DIGOXIN 0.25 MG TAB PO SCH (08:16)
[2022-02-08 13:59] LABS: HEMOGLOBIN A1c 6.5 %
[2022-02-08] MEDS: FUROSEMIDE 40MG/4ML VIAL (J1940) IV SCH (16:08)
[2022-02-08 20:07] VITALS: BP 107/68
[2022-02-08] MEDS: FLUTICASONE PROP 0.05% NASAL SPRAY 16 GM (FLONASE) NARES SCH (21:00)
[2022-02-08] MEDS: QUEtiapine FUMARATE **XR** 200MG TABLET PO SCH (21:47)
[2022-02-08] MEDS ORDERED: IPRATROPIUM 0.5MG/ALBUTEROL 2.5MG INH SOL UD 3ML (DUONEB) NEB PRN (22:40)
[2022-02-08] MEDS ORDERED: LORATADINE 10 MG TAB PO ONE (23:00)
[2022-02-09] VITALS (7 sets, daily range): BP systolic 114–120; BP diastolic 65–70; O2SAT 85–94
[2022-02-09] MEDS: ANEXSIA, NORCO 7.5MG/325MG TABLET(HYDROCODONE/APAP) PO PRN ×3 (05:36→21:52)
[2022-02-09 05:46] LABS: BASO % 0.2 % (0.0-1.0); EOS # 0.2 10^3/uL (0.0-0.5); EOS % 2.2 % (0.0-3.0); HEMATOCRIT 39.6 % (36.0-47.0); LYMPH # 1.3 10^3/uL (1.5-5.0); LYMPH % 14.8 % (24.0-44.0); MEAN CORPUSCULAR HGB CONC 27.8 g/dl (32.0-36.5); MEAN CORPUSCULAR VOLUME 82.8 fl (80.0-96.0); MONO # 0.6 10^3/uL (0.0-0.8); MONO % 7.1 % (2.0-8.0); NEUTROPHILS # 6.6 10^3/uL (1.5-8.5); NEUTROPHILS % 75.2 % (36.0-66.0); PLATELET COUNT, AUTOMATED 235 10^3/uL (150-450); RED BLOOD COUNT 4.78 10^6/uL (4.00-5.40); WHITE BLOOD COUNT 8.7 10^3/uL (4.0-10.0)
[2022-02-09 06:36] LABS: BLOOD UREA NITROGEN 16 MG/DL (7-18); CALCIUM LEVEL 8.3 MG/DL (8.8-10.2); CARBON DIOXIDE LEVEL 43 MEQ/L (21-32); CHLORIDE LEVEL 92 MEQ/L (98-107); CREATININE FOR GFR 0.68 MG/DL (0.55-1.30); GLOMERULAR FILTRATION RATE > 60.0 (>45); GLUCOSE, FASTING 120 MG/DL (70-100); MAGNESIUM LEVEL 1.9 MG/DL (1.8-2.4); POTASSIUM SERUM 3.9 MEQ/L (3.5-5.1); SODIUM LEVEL 142 MEQ/L (136-145)
[2022-02-09] MEDS: TIOTROPIUM INHALER/CAPSULE (SPIRIVA) INH SCH (07:17)
[2022-02-09] MEDS: ADVAIR HFA 230/21MCG INHALER INH SCH ×2 (07:18→18:08)
[2022-02-09] MEDS: DIMETHICONE 2% OINTMENT(VANICREAM) 70GM TUBE TOP SCH ×2 (09:00→21:53)
[2022-02-09] MEDS: HumaLOG INSULIN (NovoLOG) PER UNIT SC SCH ×4 (09:24→21:00)
[2022-02-09] MEDS: FUROSEMIDE 40MG/4ML VIAL (J1940) IV SCH ×2 (09:24→17:42)
[2022-02-09] MEDS: METOPROLOL TART 25 MG TABLET PO SCH ×2 (09:25→21:53)
[2022-02-09] MEDS: FLUTICASONE PROP 0.05% NASAL SPRAY 16 GM (FLONASE) NARES SCH ×2 (09:25→21:54)
[2022-02-09] MEDS: MAGNESIUM OXIDE 400MG TAB (MAG-OX) PO SCH ×2 (09:26→21:53)
[2022-02-09] MEDS: POTASSIUM CHLORIDE 10MEQ SR TABLET PO SCH (09:26)
[2022-02-09] MEDS: GABAPENTIN 400MG CAP PO SCH ×2 (09:26→21:52)
[2022-02-09] MEDS: ATORVASTATIN 20 MG TAB PO SCH (09:26)
[2022-02-09] MEDS: DIGOXIN 0.25 MG TAB PO SCH (09:26)
[2022-02-09] MEDS: SERTRALINE HCL 25 MG TABLET PO SCH (09:26)
[2022-02-09] MEDS: APIXABAN 5 MG TAB (ELIQUIS) PO SCH ×2 (09:26→21:52)
[2022-02-09] MEDS: QUEtiapine FUMARATE **XR** 200MG TABLET PO SCH (21:52)
[2022-02-10 05:43] LABS: BASO % 0.3 % (0.0-1.0); EOS # 0.2 10^3/uL (0.0-0.5); HEMATOCRIT 39.6 % (36.0-47.0); LYMPH # 1.6 10^3/uL (1.5-5.0); LYMPH % 15.9 % (24.0-44.0); MEAN CORPUSCULAR HEMOGLOBIN 22.9 pg (27.0-33.0); MEAN CORPUSCULAR HGB CONC 27.8 g/dl (32.0-36.5); MEAN CORPUSCULAR VOLUME 82.3 fl (80.0-96.0); MONO # 0.6 10^3/uL (0.0-0.8); MONO % 5.8 % (2.0-8.0); NEUTROPHILS # 7.8 10^3/uL (1.5-8.5); NEUTROPHILS % 75.8 % (36.0-66.0); PLATELET COUNT, AUTOMATED 251 10^3/uL (150-450); RED BLOOD COUNT 4.81 10^6/uL (4.00-5.40); WHITE BLOOD COUNT 10.3 10^3/uL (4.0-10.0)
[2022-02-10 06:00] VITALS: BP 116/72
[2022-02-10 06:25] LABS: BLOOD UREA NITROGEN 18 MG/DL (7-18); CALCIUM LEVEL 8.2 MG/DL (8.8-10.2); CARBON DIOXIDE LEVEL 50 MEQ/L (21-32); CHLORIDE LEVEL 88 MEQ/L (98-107); CREATININE FOR GFR 0.81 MG/DL (0.55-1.30); GLOMERULAR FILTRATION RATE > 60.0 (>45); GLUCOSE, FASTING 126 MG/DL (70-100); MAGNESIUM LEVEL 2.1 MG/DL (1.8-2.4); POTASSIUM SERUM 3.8 MEQ/L (3.5-5.1); SODIUM LEVEL 138 MEQ/L (136-145)
[2022-02-10] MEDS: TIOTROPIUM INHALER/CAPSULE (SPIRIVA) INH SCH (07:25)
[2022-02-10] MEDS: ADVAIR HFA 230/21MCG INHALER INH SCH ×2 (07:25→19:11)
[2022-02-10 09:00] VITALS: O2SAT 91
[2022-02-10] MEDS: HumaLOG INSULIN (NovoLOG) PER UNIT SC SCH ×4 (09:14→21:00)
[2022-02-10] MEDS: FUROSEMIDE 40MG/4ML VIAL (J1940) IV SCH (09:14)
[2022-02-10] MEDS: SERTRALINE HCL 25 MG TABLET PO SCH (09:15)
[2022-02-10] MEDS: APIXABAN 5 MG TAB (ELIQUIS) PO SCH ×2 (09:15→22:17)
[2022-02-10] MEDS: POTASSIUM CHLORIDE 10MEQ SR TABLET PO SCH (09:15)
[2022-02-10] MEDS: ANEXSIA, NORCO 7.5MG/325MG TABLET(HYDROCODONE/APAP) PO PRN ×3 (09:16→23:12)
[2022-02-10] MEDS: METOPROLOL TART 25 MG TABLET PO SCH ×2 (09:17→21:00)
[2022-02-10] MEDS: DIGOXIN 0.25 MG TAB PO SCH (09:18)
[2022-02-10] MEDS: ATORVASTATIN 20 MG TAB PO SCH (09:18)
[2022-02-10] MEDS: MAGNESIUM OXIDE 400MG TAB (MAG-OX) PO SCH ×2 (09:18→22:16)
[2022-02-10] MEDS: GABAPENTIN 400MG CAP PO SCH ×2 (09:18→22:17)
[2022-02-10] MEDS: FLUTICASONE PROP 0.05% NASAL SPRAY 16 GM (FLONASE) NARES SCH ×2 (09:18→22:15)
[2022-02-10] MEDS: DIMETHICONE 2% OINTMENT(VANICREAM) 70GM TUBE TOP SCH ×2 (09:18→22:18)
[2022-02-10 14:00] VITALS: BP 118/52
[2022-02-10 16:00] VITALS: BP 118/52; O2SAT 96
[2022-02-10 19:11] VITALS: O2SAT 94
[2022-02-10 22:00] VITALS: BP 109/53
[2022-02-10] MEDS: QUEtiapine FUMARATE **XR** 200MG TABLET PO SCH (22:16)
[2022-02-11] VITALS (7 sets, daily range): BP systolic 104–139; BP diastolic 70–82; O2SAT 94–95
[2022-02-11 05:58] LABS: BASO % 0.2 % (0.0-1.0); EOS # 0.2 10^3/uL (0.0-0.5); EOS % 2.3 % (0.0-3.0); HEMATOCRIT 37.8 % (36.0-47.0); HEMOGLOBIN 10.5 g/dl (12.0-15.5); LYMPH # 1.3 10^3/uL (1.5-5.0); LYMPH % 15.3 % (24.0-44.0); MEAN CORPUSCULAR HEMOGLOBIN 23.2 pg (27.0-33.0); MEAN CORPUSCULAR HGB CONC 27.8 g/dl (32.0-36.5); MEAN CORPUSCULAR VOLUME 83.4 fl (80.0-96.0); MONO # 0.6 10^3/uL (0.0-0.8); MONO % 6.7 % (2.0-8.0); NEUTROPHILS # 6.3 10^3/uL (1.5-8.5); NEUTROPHILS % 75.3 % (36.0-66.0); PLATELET COUNT, AUTOMATED 226 10^3/uL (150-450); RED BLOOD COUNT 4.53 10^6/uL (4.00-5.40); WHITE BLOOD COUNT 8.4 10^3/uL (4.0-10.0)
[2022-02-11 06:36] LABS: BLOOD UREA NITROGEN 17 MG/DL (7-18); CALCIUM LEVEL 8.2 MG/DL (8.8-10.2); CHLORIDE LEVEL 91 MEQ/L (98-107); CREATININE FOR GFR 0.64 MG/DL (0.55-1.30); GLOMERULAR FILTRATION RATE > 60.0 (>45); GLUCOSE, FASTING 120 MG/DL (70-100); MAGNESIUM LEVEL 2.2 MG/DL (1.8-2.4); POTASSIUM SERUM 3.7 MEQ/L (3.5-5.1); SODIUM LEVEL 142 MEQ/L (136-145)
[2022-02-11 06:37] LABS: CARBON DIOXIDE LEVEL 50 MEQ/L (21-32)
[2022-02-11] MEDS: ADVAIR HFA 230/21MCG INHALER INH SCH ×2 (07:21→19:49)
[2022-02-11] MEDS: TIOTROPIUM INHALER/CAPSULE (SPIRIVA) INH SCH (07:21)
[2022-02-11] MEDS ORDERED: FUROSEMIDE 40MG/4ML VIAL (J1940) IV SCH (09:00)
[2022-02-11] MEDS: HumaLOG INSULIN (NovoLOG) PER UNIT SC SCH ×4 (09:39→20:58)
[2022-02-11] MEDS: POTASSIUM CHLORIDE 10MEQ SR TABLET PO SCH (09:40)
[2022-02-11] MEDS: FUROSEMIDE 40MG/4ML VIAL (J1940) IV SCH ×2 (09:40→17:12)
[2022-02-11] MEDS: SERTRALINE HCL 25 MG TABLET PO SCH (09:40)
[2022-02-11] MEDS: ATORVASTATIN 20 MG TAB PO SCH (09:40)
[2022-02-11] MEDS: APIXABAN 5 MG TAB (ELIQUIS) PO SCH ×2 (09:41→21:05)
[2022-02-11] MEDS: MAGNESIUM OXIDE 400MG TAB (MAG-OX) PO SCH ×2 (09:41→21:04)
[2022-02-11] MEDS: DIGOXIN 0.25 MG TAB PO SCH (09:41)
[2022-02-11] MEDS: METOPROLOL TART 25 MG TABLET PO SCH ×2 (09:41→21:09)
[2022-02-11] MEDS: GABAPENTIN 400MG CAP PO SCH ×2 (09:41→21:05)
[2022-02-11] MEDS: DIMETHICONE 2% OINTMENT(VANICREAM) 70GM TUBE TOP SCH ×2 (09:42→21:10)
[2022-02-11] MEDS: FLUTICASONE PROP 0.05% NASAL SPRAY 16 GM (FLONASE) NARES SCH ×2 (09:42→21:00)
[2022-02-11] MEDS: ANEXSIA, NORCO 7.5MG/325MG TABLET(HYDROCODONE/APAP) PO PRN ×2 (12:52→19:47)
[2022-02-11] MEDS: QUEtiapine FUMARATE **XR** 200MG TABLET PO SCH (21:10)
[2022-02-12 05:12] VITALS: BP 110/77
[2022-02-12 06:59] LABS: BASO % 0.5 % (0.0-1.0); EOS # 0.2 10^3/uL (0.0-0.5); EOS % 2.4 % (0.0-3.0); HEMATOCRIT 38.9 % (36.0-47.0); HEMOGLOBIN 10.7 g/dl (12.0-15.5); LYMPH # 1.3 10^3/uL (1.5-5.0); LYMPH % 15.3 % (24.0-44.0); MEAN CORPUSCULAR HEMOGLOBIN 23.2 pg (27.0-33.0); MEAN CORPUSCULAR HGB CONC 27.5 g/dl (32.0-36.5); MEAN CORPUSCULAR VOLUME 84.4 fl (80.0-96.0); MONO # 0.5 10^3/uL (0.0-0.8); MONO % 6.2 % (2.0-8.0); NEUTROPHILS # 6.5 10^3/uL (1.5-8.5); NEUTROPHILS % 75.4 % (36.0-66.0); PLATELET COUNT, AUTOMATED 214 10^3/uL (150-450); RED BLOOD COUNT 4.61 10^6/uL (4.00-5.40); WHITE BLOOD COUNT 8.7 10^3/uL (4.0-10.0)
[2022-02-12] MEDS: TIOTROPIUM INHALER/CAPSULE (SPIRIVA) INH SCH (07:13)
[2022-02-12] MEDS: ADVAIR HFA 230/21MCG INHALER INH SCH ×2 (07:13→19:19)
[2022-02-12 07:45] LABS: BLOOD UREA NITROGEN 19 MG/DL (7-18); CALCIUM LEVEL 8.5 MG/DL (8.8-10.2); CARBON DIOXIDE LEVEL 48 MEQ/L (21-32); CHLORIDE LEVEL 92 MEQ/L (98-107); CREATININE FOR GFR 0.65 MG/DL (0.55-1.30); GLOMERULAR FILTRATION RATE > 60.0 (>45); GLUCOSE, FASTING 139 MG/DL (70-100); MAGNESIUM LEVEL 2.1 MG/DL (1.8-2.4); POTASSIUM SERUM 3.8 MEQ/L (3.5-5.1); SODIUM LEVEL 142 MEQ/L (136-145)
[2022-02-12] MEDS: MAGNESIUM OXIDE 400MG TAB (MAG-OX) PO SCH ×2 (08:56→20:50)
[2022-02-12] MEDS: APIXABAN 5 MG TAB (ELIQUIS) PO SCH ×2 (08:56→20:50)
[2022-02-12] MEDS: FUROSEMIDE 40MG/4ML VIAL (J1940) IV SCH ×2 (08:56→18:08)
[2022-02-12] MEDS: GABAPENTIN 400MG CAP PO SCH ×2 (08:56→20:50)
[2022-02-12] MEDS: SERTRALINE HCL 25 MG TABLET PO SCH (08:56)
[2022-02-12] MEDS: POTASSIUM CHLORIDE 10MEQ SR TABLET PO SCH (08:56)
[2022-02-12] MEDS: ATORVASTATIN 20 MG TAB PO SCH (08:56)
[2022-02-12] MEDS: ANEXSIA, NORCO 7.5MG/325MG TABLET(HYDROCODONE/APAP) PO PRN ×2 (08:57→15:14)
[2022-02-12] MEDS: METOPROLOL TART 25 MG TABLET PO SCH ×2 (09:01→20:51)
[2022-02-12] MEDS: DIGOXIN 0.25 MG TAB PO SCH (09:01)
[2022-02-12] MEDS: FLUTICASONE PROP 0.05% NASAL SPRAY 16 GM (FLONASE) NARES SCH ×2 (09:02→20:57)
[2022-02-12] MEDS: HumaLOG INSULIN (NovoLOG) PER UNIT SC SCH ×4 (09:02→19:55)
[2022-02-12] MEDS: DIMETHICONE 2% OINTMENT(VANICREAM) 70GM TUBE TOP SCH ×2 (09:02→20:57)
[2022-02-12 11:00] VITALS: O2SAT 94
[2022-02-12] MEDS ORDERED: ISOVUE-370 76% 100ML VIAL As Ordered ONE (11:39)
[2022-02-12 14:00] VITALS: BP 115/73
[2022-02-12] MEDS: IPRATROPIUM 0.5MG/ALBUTEROL 2.5MG INH SOL UD 3ML (DUONEB) NEB SCH (19:19)
[2022-02-12 19:57] VITALS: BP 108/79
[2022-02-12] MEDS: QUEtiapine FUMARATE **XR** 200MG TABLET PO SCH (20:50)
[2022-02-12] MEDS: methylPREDNISolone 125MG 2ML VIAL IV SCH (20:50)
[2022-02-12 21:41] VITALS: O2SAT 94
[2022-02-13] VITALS (9 sets, daily range): BP systolic 102–155; BP diastolic 59–95; O2SAT 84–96
[2022-02-13] MEDS: IPRATROPIUM 0.5MG/ALBUTEROL 2.5MG INH SOL UD 3ML (DUONEB) NEB SCH ×6 (03:05→19:21)
[2022-02-13] MEDS: methylPREDNISolone 125MG 2ML VIAL IV SCH (04:49)
[2022-02-13 05:35] LABS: ABG BASE EXCESS 15.9 (-2.0-2.0); ABG HCO3 43.3 MEQ/L (22.0-26.0); ABG O2 SATURATION 95.1 % (95.0-99.0); ABG PARTIAL PRESSURE O2 79.5 mmHg (75.0-100.0); ABG STANDARD HCO3 39.7 MEQ/L (22.0-26.0); ABG TOTAL CO2 45.5 MEQ/L (23.0-31.0); ABG pH (ARTERIAL) 7.412 UNITS (7.350-7.450)
[2022-02-13 05:37] LABS: ABG PARTIAL PRESSURE CO2 69.6 mmHg (35.0-45.0)
[2022-02-13] MEDS: ADVAIR HFA 230/21MCG INHALER INH SCH ×2 (07:08→19:21)
[2022-02-13] MEDS: SERTRALINE HCL 25 MG TABLET PO SCH (08:52)
[2022-02-13] MEDS: ATORVASTATIN 20 MG TAB PO SCH (08:52)
[2022-02-13] MEDS: GABAPENTIN 400MG CAP PO SCH ×2 (08:52→20:03)
[2022-02-13] MEDS: POTASSIUM CHLORIDE 10MEQ SR TABLET PO SCH (08:52)
[2022-02-13] MEDS: APIXABAN 5 MG TAB (ELIQUIS) PO SCH ×2 (08:52→20:03)
[2022-02-13] MEDS: MAGNESIUM OXIDE 400MG TAB (MAG-OX) PO SCH ×2 (08:52→20:03)
[2022-02-13] MEDS: FUROSEMIDE 40MG/4ML VIAL (J1940) IV SCH ×2 (08:53→17:48)
[2022-02-13] MEDS: FLUTICASONE PROP 0.05% NASAL SPRAY 16 GM (FLONASE) NARES SCH ×2 (08:54→20:03)
[2022-02-13] MEDS: METOPROLOL TART 25 MG TABLET PO SCH ×2 (08:54→20:03)
[2022-02-13] MEDS: HumaLOG INSULIN (NovoLOG) PER UNIT SC SCH ×4 (08:54→20:04)
[2022-02-13] MEDS: DIMETHICONE 2% OINTMENT(VANICREAM) 70GM TUBE TOP SCH ×2 (08:55→20:05)
[2022-02-13] MEDS: DIGOXIN 0.25 MG TAB PO SCH (08:56)
[2022-02-13] MEDS: ANEXSIA, NORCO 7.5MG/325MG TABLET(HYDROCODONE/APAP) PO PRN ×2 (09:02→17:47)
[2022-02-13 09:33] LABS: BASO % 0.3 % (0.0-1.0); HEMATOCRIT 40.5 % (36.0-47.0); LYMPH # 0.7 10^3/uL (1.5-5.0); MEAN CORPUSCULAR HEMOGLOBIN 22.9 pg (27.0-33.0); MEAN CORPUSCULAR HGB CONC 27.2 g/dl (32.0-36.5); MEAN CORPUSCULAR VOLUME 84.2 fl (80.0-96.0); MONO # 0.2 10^3/uL (0.0-0.8); NEUTROPHILS # 7.7 10^3/uL (1.5-8.5); NEUTROPHILS % 89.4 % (36.0-66.0); PLATELET COUNT, AUTOMATED 233 10^3/uL (150-450); RED BLOOD COUNT 4.81 10^6/uL (4.00-5.40); WHITE BLOOD COUNT 8.6 10^3/uL (4.0-10.0)
[2022-02-13 10:20] LABS: BLOOD UREA NITROGEN 20 MG/DL (7-18); CALCIUM LEVEL 8.7 MG/DL (8.8-10.2); CARBON DIOXIDE LEVEL 45 MEQ/L (21-32); CHLORIDE LEVEL 93 MEQ/L (98-107); CREATININE FOR GFR 0.73 MG/DL (0.55-1.30); GLOMERULAR FILTRATION RATE > 60.0 (>45); GLUCOSE, FASTING 213 MG/DL (70-100); MAGNESIUM LEVEL 2.1 MG/DL (1.8-2.4); PHOSPHORUS LEVEL 3.6 MG/DL (2.5-4.9); POTASSIUM SERUM 4.2 MEQ/L (3.5-5.1); SODIUM LEVEL 142 MEQ/L (136-145)
[2022-02-13] MEDS: methylPREDNISolone 40MG 1ML VIAL IV SCH ×2 (12:32→20:04)
[2022-02-13] MEDS: QUEtiapine FUMARATE **XR** 200MG TABLET PO SCH (20:03)
[2022-02-13] MEDS ORDERED: LEVEMIR (INSULIN DETEMIR) 1 UNITS/0.01ML SC SCH (21:00)
[2022-02-14] MEDS: ANEXSIA, NORCO 7.5MG/325MG TABLET(HYDROCODONE/APAP) PO PRN ×4 (00:53→22:44)
[2022-02-14] MEDS: IPRATROPIUM 0.5MG/ALBUTEROL 2.5MG INH SOL UD 3ML (DUONEB) NEB SCH ×7 (00:56→18:24)
[2022-02-14] MEDS: methylPREDNISolone 40MG 1ML VIAL IV SCH (04:42)
[2022-02-14 04:43] VITALS: BP 128/77
[2022-02-14] MEDS: ADVAIR HFA 230/21MCG INHALER INH SCH ×2 (07:19→18:24)
[2022-02-14 08:00] VITALS: BP 143/85
[2022-02-14] MEDS: HumaLOG INSULIN (NovoLOG) PER UNIT SC SCH ×4 (08:29→20:37)
[2022-02-14] MEDS: SERTRALINE HCL 25 MG TABLET PO SCH (09:08)
[2022-02-14] MEDS: POTASSIUM CHLORIDE 10MEQ SR TABLET PO SCH (09:09)
[2022-02-14] MEDS: ATORVASTATIN 20 MG TAB PO SCH (09:09)
[2022-02-14] MEDS: GABAPENTIN 400MG CAP PO SCH ×2 (09:10→20:36)
[2022-02-14] MEDS: METOPROLOL TART 25 MG TABLET PO SCH ×2 (09:10→20:36)
[2022-02-14] MEDS: APIXABAN 5 MG TAB (ELIQUIS) PO SCH ×2 (09:11→20:36)
[2022-02-14] MEDS: DIGOXIN 0.25 MG TAB PO SCH (09:11)
[2022-02-14] MEDS: MAGNESIUM OXIDE 400MG TAB (MAG-OX) PO SCH ×2 (09:11→20:36)
[2022-02-14] MEDS: DIMETHICONE 2% OINTMENT(VANICREAM) 70GM TUBE TOP SCH ×2 (09:12→20:38)
[2022-02-14] MEDS: FUROSEMIDE 40MG/4ML VIAL (J1940) IV SCH ×2 (09:13→16:37)
[2022-02-14] MEDS: FLUTICASONE PROP 0.05% NASAL SPRAY 16 GM (FLONASE) NARES SCH ×2 (09:13→20:38)
[2022-02-14] MEDS: predniSONE 20 MG TAB PO SCH (09:21)
[2022-02-14 11:42] VITALS: O2SAT 90
[2022-02-14] MEDS ORDERED: PRED10TA2 PO (11:49)
[2022-02-14] MEDS ORDERED: METF10004 PO (11:49)
[2022-02-14] MEDS ORDERED: TORS20TA2 PO (11:49)
[2022-02-14] MEDS ORDERED: HumuLIN R (REGULAR) INSULIN (NovoLIN R) **100U/ML** PER UNIT IV STA ×2 (12:07→14:09)
[2022-02-14 13:02] LABS: BLOOD UREA NITROGEN 27 MG/DL (7-18); CALCIUM LEVEL 9.2 MG/DL (8.8-10.2); CARBON DIOXIDE LEVEL 42 MEQ/L (21-32); CHLORIDE LEVEL 90 MEQ/L (98-107); CREATININE FOR GFR 0.89 MG/DL (0.55-1.30); GLOMERULAR FILTRATION RATE > 60.0 (>45); GLUCOSE, FASTING 436 MG/DL (70-100); PHOSPHORUS LEVEL 2.6 MG/DL (2.5-4.9); POTASSIUM SERUM 3.9 MEQ/L (3.5-5.1); SODIUM LEVEL 136 MEQ/L (136-145)
[2022-02-14 13:03] LABS: MAGNESIUM LEVEL 2.1 MG/DL (1.8-2.4)
[2022-02-14 14:00] VITALS: BP 145/84
[2022-02-14] MEDS ORDERED: LANC30MI XX (15:08)
[2022-02-14] MEDS ORDERED: GLUC1TES2 XX (15:08)
[2022-02-14] MEDS ORDERED: BLOOKIT21 XX (15:08)
[2022-02-14] MEDS ORDERED: INSU1MIS20 SC (15:08)
[2022-02-14] MEDS ORDERED: ALCOPAD25 TOP (15:08)
[2022-02-14] MEDS ORDERED: HUMA100I14 SC (15:14)
[2022-02-14 16:00] VITALS: O2SAT 93
[2022-02-14] MEDS ORDERED: HumaLOG INSULIN (NovoLOG) PER UNIT SC ONE ×3 (16:15→22:50)
[2022-02-14 19:16] VITALS: BP 148/90
[2022-02-14] MEDS: QUEtiapine FUMARATE **XR** 200MG TABLET PO SCH (20:36)
[2022-02-14] MEDS ORDERED: LEVEMIR (INSULIN DETEMIR) 1 UNITS/0.01ML SC SCH (21:00)
[2022-02-15] MEDS: IPRATROPIUM 0.5MG/ALBUTEROL 2.5MG INH SOL UD 3ML (DUONEB) NEB SCH ×3 (04:00→07:36)
[2022-02-15 05:28] VITALS: BP 117/75
[2022-02-15 06:44] LABS: HEMATOCRIT 38.1 % (36.0-47.0); HEMOGLOBIN 10.7 g/dl (12.0-15.5); MEAN CORPUSCULAR HEMOGLOBIN 23.2 pg (27.0-33.0); MEAN CORPUSCULAR HGB CONC 28.1 g/dl (32.0-36.5); MEAN CORPUSCULAR VOLUME 82.5 fl (80.0-96.0); PLATELET COUNT, AUTOMATED 215 10^3/uL (150-450); RED BLOOD COUNT 4.62 10^6/uL (4.00-5.40); WHITE BLOOD COUNT 9.1 10^3/uL (4.0-10.0)
[2022-02-15] MEDS: ADVAIR HFA 230/21MCG INHALER INH SCH (07:17)
[2022-02-15 07:35] LABS: BLOOD UREA NITROGEN 32 MG/DL (7-18); CALCIUM LEVEL 9.1 MG/DL (8.8-10.2); CARBON DIOXIDE LEVEL 47 MEQ/L (21-32); CHLORIDE LEVEL 94 MEQ/L (98-107); CREATININE FOR GFR 0.74 MG/DL (0.55-1.30); GLOMERULAR FILTRATION RATE > 60.0 (>45); GLUCOSE, FASTING 156 MG/DL (70-100); POTASSIUM SERUM 3.1 MEQ/L (3.5-5.1); SODIUM LEVEL 142 MEQ/L (136-145)
[2022-02-15] MEDS ORDERED: POTASSIUM CHLORIDE 10MEQ SR TABLET PO ONE (08:00)
[2022-02-15] MEDS: POTASSIUM CHLORIDE 10MEQ SR TABLET PO SCH (09:00)
[2022-02-15] MEDS: HumaLOG INSULIN (NovoLOG) PER UNIT SC SCH ×2 (09:04→12:55)
[2022-02-15] MEDS: APIXABAN 5 MG TAB (ELIQUIS) PO SCH (09:05)
[2022-02-15] MEDS: SERTRALINE HCL 25 MG TABLET PO SCH (09:05)
[2022-02-15] MEDS: GABAPENTIN 400MG CAP PO SCH (09:05)
[2022-02-15] MEDS: ATORVASTATIN 20 MG TAB PO SCH (09:05)
[2022-02-15] MEDS: predniSONE 20 MG TAB PO SCH (09:05)
[2022-02-15] MEDS: FUROSEMIDE 40MG/4ML VIAL (J1940) IV SCH (09:05)
[2022-02-15 09:06] VITALS: BP 117/75
[2022-02-15] MEDS: DIGOXIN 0.25 MG TAB PO SCH (09:06)
[2022-02-15] MEDS: METOPROLOL TART 25 MG TABLET PO SCH (09:06)
[2022-02-15] MEDS: MAGNESIUM OXIDE 400MG TAB (MAG-OX) PO SCH (09:06)
[2022-02-15] MEDS: ANEXSIA, NORCO 7.5MG/325MG TABLET(HYDROCODONE/APAP) PO PRN (09:08)
[2022-02-15] MEDS: DIMETHICONE 2% OINTMENT(VANICREAM) 70GM TUBE TOP SCH (09:13)
[2022-02-15] MEDS: FLUTICASONE PROP 0.05% NASAL SPRAY 16 GM (FLONASE) NARES SCH (09:13)
[2022-02-15] MEDS ORDERED: HUMA100I3 SC (09:59)
== END 2022-02-15 13:17 | disposition home health service (06) | DRG 194 ==
LOC: EDBD 14:18 → EDSEX 14:18 → M ED 14:18 → M ED INP 17:52 → M MSPAV 20:35
PROVIDERS: ADMIT Internal Medicine Nephrology; ATTEND Internal Medicine
DX: I11.0 Hypertensive heart disease with heart failure (principal); I50.33 Acute on chronic diastolic (congestive) heart failure; I50.813 Acute on chronic right heart failure; E66.01 Morbid (severe) obesity due to excess calories; G47.33 Obstructive sleep apnea (adult) (pediatric); J96.11 Chronic respiratory failure with hypoxia; J96.12 Chronic respiratory failure with hypercapnia; I48.20 Chronic atrial fibrillation, unspecified; E11.9 Type 2 diabetes mellitus without complications; J44.1 Chronic obstructive pulmonary disease with (acute) exacerbation; Z99.81 Dependence on supplemental oxygen; I27.29 Other secondary pulmonary hypertension; Z68.42 Body mass index [BMI] 45.0-49.9, adult; M54.50 Low back pain, unspecified; F17.200 Nicotine dependence, unspecified, uncomplicated; F32.A Depression, unspecified; M48.061 Spinal stenosis, lumbar region without neurogenic claudication; Z90.79 Acquired absence of other genital organ(s); Z79.01 Long term (current) use of anticoagulants; Z79.84 Long term (current) use of oral hypoglycemic drugs; Z79.899 Other long term (current) drug therapy; Z88.0 Allergy status to penicillin; Z74.09 Other reduced mobility; E83.42 Hypomagnesemia; E87.3 Alkalosis; E78.5 Hyperlipidemia, unspecified

== ENCOUNTER 2022-03-04 09:53 | Emergency (ER) | payer OTHER ==
[~2022-03-04] VITALS: Ht 177.8 cm; Wt 145.0 kg
[~2022-03-04 09:53] MED LIST changes: +ALCOPAD25 TOP; +ATOR40TA75 PO; +BLOOKIT21 XX; +DIGO0.253 PO; +GABA-283 PO; +GLUC1TES2 XX; +HUMA100I14 SC; +HUMA100I3 SC; +INSU1MIS20 SC; +LANC30MI XX; +MAGN400T2 PO; +METF10004 PO; +METO50TA7 PO; +PRED10TA2 PO; +TORS20TA2 PO
[2022-03-04 10:44] LABS: BASO % 0.2 % (0.0-1.0); EOS # 0.1 10^3/uL (0.0-0.5); EOS % 1.5 % (0.0-3.0); HEMATOCRIT 42.6 % (36.0-47.0); HEMOGLOBIN 12.1 g/dl (12.0-15.5); LYMPH # 1.6 10^3/uL (1.5-5.0); LYMPH % 18.3 % (24.0-44.0); MEAN CORPUSCULAR HGB CONC 28.4 g/dl (32.0-36.5); MEAN CORPUSCULAR VOLUME 84.5 fl (80.0-96.0); MONO # 0.5 10^3/uL (0.0-0.8); MONO % 6.1 % (2.0-8.0); NEUTROPHILS # 6.4 10^3/uL (1.5-8.5); NEUTROPHILS % 73.6 % (36.0-66.0); PLATELET COUNT, AUTOMATED 176 10^3/uL (150-450); RED BLOOD COUNT 5.04 10^6/uL (4.00-5.40); WHITE BLOOD COUNT 8.7 10^3/uL (4.0-10.0)
[2022-03-04 10:52] LABS: INR 1.16; PROTHROMBIN TIME 15.2 SECONDS (12.7-14.5)
[2022-03-04 10:58] LABS: PARTIAL THROMBOPLASTIN TIME 33.2 SECONDS (25.9-37.0)
[2022-03-04 11:25] LABS: ALBUMIN 3.2 GM/DL (3.2-5.2); ALT/SGPT 72 U/L (12-78); BILIRUBIN,DIRECT 0.2 MG/DL (0.0-0.2); BILIRUBIN,TOTAL 0.4 MG/DL (0.2-1.0); BLOOD UREA NITROGEN 15 MG/DL (7-18); CALCIUM LEVEL 8.3 MG/DL (8.8-10.2); CARBON DIOXIDE LEVEL 41 MEQ/L (21-32); CHLORIDE LEVEL 96 MEQ/L (98-107); CREATININE FOR GFR 0.77 MG/DL (0.55-1.30); DIGOXIN LEVEL 1.3 NG/ML (0.5-2.0); GLOMERULAR FILTRATION RATE > 60.0 (>45); GLUCOSE, FASTING 158 MG/DL (70-100); NT-PRO BNP 1509 PG/ML (<125); POTASSIUM SERUM 3.9 MEQ/L (3.5-5.1); SODIUM LEVEL 141 MEQ/L (136-145); TOTAL PROTEIN 6.5 GM/DL (6.4-8.2)
[2022-03-04] MEDS ORDERED: METF850T4 PO (11:41)
[2022-03-04] MEDS ORDERED: ADME100I SC (11:45)
[2022-03-04] MEDS ORDERED: HOME MED LIST COMPLETE! XX SCH (11:50)
[2022-03-04 12:07] LABS: RSV AMPLIFICATION NEGATIVE (NEGATIVE)
[2022-03-04] MEDS ORDERED: PRED20TA PO (13:05)
[2022-03-04 14:46] VITALS: BP 128/65
== END 2022-03-04 14:58 | disposition home or self-care (01) ==
LOC: M ED 09:53
DX: J44.1 Chronic obstructive pulmonary disease with (acute) exacerbation (principal); E87.2 Acidosis; I48.91 Unspecified atrial fibrillation; I50.9 Heart failure, unspecified; E11.9 Type 2 diabetes mellitus without complications; I10 Essential (primary) hypertension; J45.909 Unspecified asthma, uncomplicated; Z87.01 Personal history of pneumonia (recurrent); F41.9 Anxiety disorder, unspecified; F32.9 Major depressive disorder, single episode, unspecified; K21.9 Gastro-esophageal reflux disease without esophagitis; G47.33 Obstructive sleep apnea (adult) (pediatric); Z99.81 Dependence on supplemental oxygen; F17.200 Nicotine dependence, unspecified, uncomplicated; Z79.01 Long term (current) use of anticoagulants; Z79.899 Other long term (current) drug therapy; Z88.0 Allergy status to penicillin

== ENCOUNTER 2022-04-18 19:11 | Emergency (ER) | payer OTHER ==
[~2022-04-18] VITALS: Ht 177.8 cm; Wt 154.4 kg
[~2022-04-18 19:11] MED LIST changes: +ADME100I SC; -AFRI0.058; +FLUT1INH3 INH; +OCEA0.654 NARES; +OXYM15SP2; +PRED20TA PO
[2022-04-18] MEDS ORDERED: CETACAINE SPRAY 5GM TOP ONE (19:30)
[2022-04-18] MEDS ORDERED: BACITRACIN OINTMENT 30GM TUBE TOP ONE (20:10)
[2022-04-18] MEDS: fentaNYL 100 MCG/2 ML INJECTION IV PRN ×2 (20:10→20:57)
[2022-04-18] MEDS ORDERED: IPRATROPIUM 0.5MG/ALBUTEROL 2.5MG INH SOL UD 3ML (DUONEB) NEB ONE (20:10)
[2022-04-18 20:26] LABS: ABG BASE EXCESS 7.2 (-2.0-2.0); ABG HCO3 35.5 MEQ/L (22.0-26.0); ABG O2 SATURATION 99.8 % (95.0-99.0); ABG PARTIAL PRESSURE CO2 70.1 mmHg (35.0-45.0); ABG PARTIAL PRESSURE O2 304.3 mmHg (75.0-100.0); ABG STANDARD HCO3 31.1 MEQ/L (22.0-26.0); ABG TOTAL CO2 37.6 MEQ/L (23.0-31.0); ABG pH (ARTERIAL) 7.322 UNITS (7.350-7.450)
[2022-04-18 20:39] LABS: BASO % 0.1 % (0.0-1.0); EOS # 0.1 10^3/uL (0.0-0.5); HEMATOCRIT 39.6 % (36.0-47.0); HEMOGLOBIN 11.1 g/dl (12.0-15.5); LYMPH # 1.1 10^3/uL (1.5-5.0); LYMPH % 11.4 % (24.0-44.0); MEAN CORPUSCULAR HEMOGLOBIN 25.2 pg (27.0-33.0); MEAN CORPUSCULAR VOLUME 89.8 fl (80.0-96.0); MONO # 0.6 10^3/uL (0.0-0.8); MONO % 6.8 % (2.0-8.0); NEUTROPHILS # 7.5 10^3/uL (1.5-8.5); NEUTROPHILS % 80.5 % (36.0-66.0); PLATELET COUNT, AUTOMATED 255 10^3/uL (150-450); RED BLOOD COUNT 4.41 10^6/uL (4.00-5.40); WHITE BLOOD COUNT 9.3 10^3/uL (4.0-10.0)
[2022-04-18 20:49] VITALS: BP 128/68
[2022-04-18 20:55] LABS: ALT/SGPT 32 U/L (12-78); BILIRUBIN,TOTAL 0.3 MG/DL (0.2-1.0); BLOOD UREA NITROGEN 20 MG/DL (7-18); C REACTIVE PROTEIN QUANTITATIV 0.87 MG/DL (0.00-0.30); CARBON DIOXIDE LEVEL 40 MEQ/L (21-32); CHLORIDE LEVEL 104 MEQ/L (98-107); CREATININE FOR GFR 0.84 MG/DL (0.55-1.30); ETHYL ALCOHOL (ETHANOL) 0.003 % (0.000-0.010); GLOMERULAR FILTRATION RATE > 60.0 (>45); GLUCOSE, FASTING 157 MG/DL (70-100); INR 1.32; MAGNESIUM LEVEL 2.1 MG/DL (1.8-2.4); MYOGLOBIN 40 NG/ML (13-71); PARTIAL THROMBOPLASTIN TIME 35.5 SECONDS (25.9-37.0); PHOSPHORUS LEVEL 3.3 MG/DL (2.5-4.9); POTASSIUM SERUM 4.5 MEQ/L (3.5-5.1); PROTHROMBIN TIME 16.8 SECONDS (12.7-14.5); SODIUM LEVEL 142 MEQ/L (136-145); TOTAL PROTEIN 6.2 GM/DL (6.4-8.2)
[2022-04-18 21:03] LABS: CK-MB VALUE MASS 1.6 NG/ML (<3.6); MB/CK RELATIVE INDEX 1.57 (< OR =4)
== END 2022-04-18 20:55 | disposition short-term general hospital (02) ==
LOC: EDBD 19:11 → M ED 19:11
DX: T20.00XA Burn of unspecified degree of head, face, and neck, unspecified site, initial encounter (principal); I44.0 Atrioventricular block, first degree; X58.XXXA Exposure to other specified factors, initial encounter; Y92.099 Unspecified place in other non-institutional residence as the place of occurrence of the external cause; Y93.89 Activity, other specified; Y99.9 Unspecified external cause status; E11.9 Type 2 diabetes mellitus without complications; F17.200 Nicotine dependence, unspecified, uncomplicated; I48.91 Unspecified atrial fibrillation; I50.9 Heart failure, unspecified; J44.9 Chronic obstructive pulmonary disease, unspecified; K21.9 Gastro-esophageal reflux disease without esophagitis; F14.11 Cocaine abuse, in remission; Z79.01 Long term (current) use of anticoagulants; Z79.4 Long term (current) use of insulin; Z79.899 Other long term (current) drug therapy; Z88.0 Allergy status to penicillin
CPT/HCPCS: 71045; 80053; 82077; 82375; 82550; 82553; 82803; 83605; 83735; 83874; 84100; 85025; 85610; 85730; 86140; 86850; 86900; 86901; 93005; 93041; 96374; 96376; 99285; J3010

== ENCOUNTER 2022-04-28 19:36 | Inpatient (IN) | payer OTHER ==
[~2022-04-28] VITALS: Ht 172.7 cm; Wt 134.8 kg
[2022-04-28 20:38] LABS: BASO % 0.2 % (0.0-1.0); EOS # 0.1 10^3/uL (0.0-0.5); EOS % 0.4 % (0.0-3.0); HEMATOCRIT 43.1 % (36.0-47.0); HEMOGLOBIN 12.4 g/dl (12.0-15.5); LYMPH # 1.4 10^3/uL (1.5-5.0); LYMPH % 9.8 % (24.0-44.0); MEAN CORPUSCULAR HEMOGLOBIN 25.6 pg (27.0-33.0); MEAN CORPUSCULAR HGB CONC 28.8 g/dl (32.0-36.5); MONO # 0.8 10^3/uL (0.0-0.8); MONO % 5.5 % (2.0-8.0); NEUTROPHILS # 11.6 10^3/uL (1.5-8.5); NEUTROPHILS % 83.7 % (36.0-66.0); PLATELET COUNT, AUTOMATED 224 10^3/uL (150-450); RED BLOOD COUNT 4.84 10^6/uL (4.00-5.40); WHITE BLOOD COUNT 13.8 10^3/uL (4.0-10.0)
[2022-04-28 21:25] LABS: CALCIUM LEVEL 8.1 MG/DL (8.8-10.2); CREATININE FOR GFR 1.26 MG/DL (0.55-1.30); GLOMERULAR FILTRATION RATE 45.8 (>45); POTASSIUM SERUM 3.1 MEQ/L (3.5-5.1)
[2022-04-28 22:07] LABS: CK-MB VALUE MASS < 1.0 NG/ML (<3.6); CPK CREATINE PHOSPHOKINASE 39 U/L (26-192); MB/CK RELATIVE INDEX 2.56 (< OR =4)
[2022-04-28] MEDS ORDERED: ASPIRIN 81 MG CHEW TABLET PO ONE (22:20)
[2022-04-28] MEDS ORDERED: NITROGLYCERIN 0.4 MG SUBL TABLET SL PRN (22:20)
[2022-04-28] MEDS ORDERED: ISOVUE-370 76% 100ML VIAL As Ordered ONE (22:27)
[2022-04-28 22:53] LABS: DIGOXIN LEVEL 1.4 NG/ML (0.5-2.0)
[2022-04-28 23:12] LABS: CK-MB VALUE MASS < 1.0 NG/ML (<3.6); CPK CREATINE PHOSPHOKINASE 40 U/L (26-192)
[2022-04-29] MEDS ORDERED: methylPREDNISolone 125MG 2ML VIAL IV ONE (00:05)
[2022-04-29] MEDS ORDERED: FURO40TA2 PO (00:29)
[2022-04-29] MEDS ORDERED: med rec comment (00:31)
[2022-04-29] MEDS ORDERED: HOME MED LIST COMPLETE! XX SCH (00:35)
[2022-04-29] MEDS ORDERED: ANEXSIA, NORCO 7.5MG/325MG TABLET(HYDROCODONE/APAP) PO ONE (00:40)
[2022-04-29] MEDS ORDERED: ACETAMINOPHEN TAB 650MG DOSE (2X325MG) PO PRN (01:10)
[2022-04-29] MEDS ORDERED: GLUCOSE 4GM CHEW TABLET PO PRN (01:10)
[2022-04-29] MEDS ORDERED: GLUCAGON INJ 1MG VIAL SC PRN (01:10)
[2022-04-29] MEDS ORDERED: MOM 30ML SUSPENSION UDC PO PRN (01:10)
[2022-04-29] MEDS ORDERED: MAALOX 30 ML SUSP *UDC PO PRN (01:10)
[2022-04-29] MEDS ORDERED: ANEXSIA, NORCO 7.5MG/325MG TABLET(HYDROCODONE/APAP) PO PRN (01:10)
[2022-04-29] MEDS ORDERED: DEXTROSE 50% 50 ML SYRINGE IV PRN (01:10)
[2022-04-29] MEDS ORDERED: ALBUTEROL 90 MCG/ACT 8GM HFA INHALER INH PRN (01:10)
[2022-04-29] MEDS ORDERED: POTASSIUM CHLORIDE 10MEQ SR TABLET PO ONE ×2 (01:25→09:00)
[2022-04-29] MEDS ORDERED: NICOTINE 21MG/24HR 1 EA TRANSDERMAL TD PRN (01:25)
[2022-04-29] MEDS ORDERED: HYDR-4514 PO (01:26)
[2022-04-29] MEDS: IPRATROPIUM 0.5MG/ALBUTEROL 2.5MG INH SOL UD 3ML (DUONEB) NEB SCH ×2 (02:00→07:06)
[2022-04-29] MEDS ORDERED: ONDANSETRON 4MG/2ML VIAL IV PRN (02:10)
[2022-04-29 03:47] VITALS: BP 119/76
[2022-04-29 06:00] VITALS: BP 127/66
[2022-04-29 06:20] LABS: HEMOGLOBIN 12.4 g/dl (12.0-15.5); MEAN CORPUSCULAR HEMOGLOBIN 25.6 pg (27.0-33.0); MEAN CORPUSCULAR HGB CONC 28.8 g/dl (32.0-36.5); MEAN CORPUSCULAR VOLUME 88.8 fl (80.0-96.0); PLATELET COUNT, AUTOMATED 190 10^3/uL (150-450); RED BLOOD COUNT 4.84 10^6/uL (4.00-5.40); WHITE BLOOD COUNT 10.8 10^3/uL (4.0-10.0)
[2022-04-29 06:32] LABS: INR 1.34
[2022-04-29 06:33] LABS: PARTIAL THROMBOPLASTIN TIME 30.7 SECONDS (25.9-37.0)
[2022-04-29 06:52] LABS: CK-MB VALUE MASS < 1.0 NG/ML (<3.6); CPK CREATINE PHOSPHOKINASE 37 U/L (26-192)
[2022-04-29] MEDS: ADVAIR HFA 115/21MCG INHALER INH SCH ×2 (07:04→19:22)
[2022-04-29] MEDS: TIOTROPIUM INHALER/CAPSULE (SPIRIVA) INH SCH (07:04)
[2022-04-29] MEDS ORDERED: NITROGLYCERIN 0.4 MG SUBL TABLET SL PRN (07:30)
[2022-04-29 08:04] LABS: CREATININE FOR GFR 1.23 MG/DL (0.55-1.30); GLOMERULAR FILTRATION RATE 47.1 (>45); MAGNESIUM LEVEL 1.4 MG/DL (1.8-2.4); POTASSIUM SERUM 3.4 MEQ/L (3.5-5.1)
[2022-04-29] MEDS: INSULIN LISPRO (NovoLOG) PER UNIT SC SCH ×4 (08:48→22:06)
[2022-04-29] MEDS: MAGNESIUM OXIDE 400MG TAB (MAG-OX) PO SCH ×2 (08:49→21:04)
[2022-04-29] MEDS: DOCUSATE SODIUM 100MG CAPSULE PO SCH ×2 (08:49→21:02)
[2022-04-29] MEDS: ASPIRIN 81 MG CHEW TABLET PO SCH (08:49)
[2022-04-29] MEDS: methylPREDNISolone 125MG 2ML VIAL IV SCH ×3 (08:49→21:05)
[2022-04-29] MEDS: TORSEMIDE 20 MG TAB PO SCH ×2 (08:49→21:04)
[2022-04-29] MEDS: ATORVASTATIN 20 MG TAB PO SCH (08:50)
[2022-04-29] MEDS: SERTRALINE HCL 50 MG TAB PO SCH (08:50)
[2022-04-29] MEDS: APIXABAN 5 MG TAB (ELIQUIS) PO SCH ×2 (08:50→21:04)
[2022-04-29] MEDS: FUROSEMIDE 40 MG TAB PO SCH (08:50)
[2022-04-29] MEDS: SERTRALINE HCL 25 MG TABLET PO SCH (08:50)
[2022-04-29] MEDS: DOXYCYCLINE HYCLATE 100MG TABLET PO SCH ×2 (08:51→21:05)
[2022-04-29] MEDS: METOPROLOL TART 50 MG TAB PO SCH ×2 (08:53→21:06)
[2022-04-29] MEDS: DIGOXIN 0.25 MG TAB PO SCH (08:55)
[2022-04-29] MEDS ORDERED: GABAPENTIN 400MG CAP PO SCH (09:00)
[2022-04-29] MEDS ORDERED: BACITRACIN OINTMENT 30GM TUBE TOP SCH (09:00)
[2022-04-29] MEDS ORDERED: ATORVASTATIN 20 MG TAB PO SCH (09:00)
[2022-04-29 09:44] LABS: ABG BASE EXCESS 21.2 (-2.0-2.0); ABG HCO3 48.4 MEQ/L (22.0-26.0); ABG O2 SATURATION 90.2 % (95.0-99.0); ABG PARTIAL PRESSURE O2 58.6 mmHg (75.0-100.0); ABG STANDARD HCO3 45.5 MEQ/L (22.0-26.0); ABG TOTAL CO2 50.4 MEQ/L (23.0-31.0); ABG pH (ARTERIAL) 7.488 UNITS (7.350-7.450)
[2022-04-29 09:49] LABS: ABG PARTIAL PRESSURE CO2 65.3 mmHg (35.0-45.0)
[2022-04-29] MEDS ORDERED: IPRATROPIUM 0.5MG/ALBUTEROL 2.5MG INH SOL UD 3ML (DUONEB) NEB PRN (10:40)
[2022-04-29 10:45] VITALS: O2SAT 93
[2022-04-29] MEDS: DICLOFENAC EPOLAMINE 1.3 % PATCH TOP SCH ×2 (12:12→22:56)
[2022-04-29] MEDS ORDERED: LEVEMIR (INSULIN DETEMIR) 1 UNITS/0.01ML SC ONE (12:55)
[2022-04-29] MEDS ORDERED: MAG SULF 1GM/100ML (MAG RUN) 1 GM in IV 1 EA IV ONE (13:00)
[2022-04-29 14:00] VITALS: BP 115/65
[2022-04-29 15:30] LABS: APPEARANCE, URINE CLEAR (CLEAR); BACTERIA, URINE AUTO 2+ (NEGATIVE); BILIRUBIN, URINE AUTO NEGATIVE (NEGATIVE); BLOOD, URINE BLOOD NEGATIVE (NEGATIVE); COLOR, URINE YELLOW (YELLOW); GLUCOSE, URINE (UA) AUTO NEGATIVE (NEGATIVE); KETONE, URINE AUTO NEGATIVE (NEGATIVE); LEUKOCYTE ESTERASE, URINE AUTO NEGATIVE (NEGATIVE); MUCUS, URINE SMALL (NEGATIVE); NITRITE, URINE AUTO NEGATIVE (NEGATIVE); PROTEIN, URINE AUTO NEGATIVE (NEGATIVE); RBC, URINE AUTO 1 /HPF (0-3); SPECIFIC GRAVITY URINE AUTO 1.011 (1.002-1.035); SQUAMOUS EPITHELIAL CELL UR AU 0 /HPF (0-6); UROBILINOGEN, URINE AUTO 0.2 mg/dL (0.0-2.0); WBC, URINE AUTO 0 /HPF (0-3)
[2022-04-29] MEDS: SANTYL OINT 30GM TOP SCH ×2 (16:12→21:09)
[2022-04-29] MEDS: BACITRACIN OINTMENT 30GM TUBE TOP SCH ×2 (16:13→21:08)
[2022-04-29 16:28] LABS: ABG BASE EXCESS 20.5 (-2.0-2.0); ABG HCO3 47.4 MEQ/L (22.0-26.0); ABG O2 SATURATION 91.1 % (95.0-99.0); ABG PARTIAL PRESSURE O2 59.9 mmHg (75.0-100.0); ABG STANDARD HCO3 44.8 MEQ/L (22.0-26.0); ABG TOTAL CO2 49.3 MEQ/L (23.0-31.0); ABG pH (ARTERIAL) 7.499 UNITS (7.350-7.450)
[2022-04-29 16:29] LABS: ABG PARTIAL PRESSURE CO2 62.3 mmHg (35.0-45.0)
[2022-04-29] MEDS ORDERED: KETOROLAC 30 MG/ML 1ML VIAL IV ONE (18:25)
[2022-04-29] MEDS ORDERED: ACETAMINOPHEN 500 MG TAB PO ONE (18:25)
[2022-04-29] MEDS ORDERED: traMADol 50 MG TAB PO ONE (18:25)
[2022-04-29] MEDS: QUEtiapine FUMARATE 200 MG TAB PO SCH (21:05)
[2022-04-29 22:00] VITALS: BP 136/72
[2022-04-29 22:59] LABS: ABG BASE EXCESS 17.6 (-2.0-2.0); ABG HCO3 44.2 MEQ/L (22.0-26.0); ABG O2 SATURATION 94.9 % (95.0-99.0); ABG PARTIAL PRESSURE O2 73.3 mmHg (75.0-100.0); ABG STANDARD HCO3 41.6 MEQ/L (22.0-26.0); ABG TOTAL CO2 46.1 MEQ/L (23.0-31.0); ABG pH (ARTERIAL) 7.476 UNITS (7.350-7.450)
[2022-04-29 23:00] LABS: ABG PARTIAL PRESSURE CO2 61.3 mmHg (35.0-45.0)
[2022-04-30] MEDS: methylPREDNISolone 125MG 2ML VIAL IV SCH (03:53)
[2022-04-30 06:00] VITALS: BP 149/86
[2022-04-30 06:16] LABS: HEMATOCRIT 41.5 % (36.0-47.0); HEMOGLOBIN 12.2 g/dl (12.0-15.5); MEAN CORPUSCULAR HEMOGLOBIN 26.1 pg (27.0-33.0); MEAN CORPUSCULAR HGB CONC 29.4 g/dl (32.0-36.5); MEAN CORPUSCULAR VOLUME 88.9 fl (80.0-96.0); PLATELET COUNT, AUTOMATED 209 10^3/uL (150-450); RED BLOOD COUNT 4.67 10^6/uL (4.00-5.40); WHITE BLOOD COUNT 11.6 10^3/uL (4.0-10.0)
[2022-04-30 07:06] LABS: CALCIUM LEVEL 8.1 MG/DL (8.8-10.2); CREATININE FOR GFR 1.03 MG/DL (0.55-1.30); GLOMERULAR FILTRATION RATE 57.8 (>45); POTASSIUM SERUM 3.6 MEQ/L (3.5-5.1)
[2022-04-30] MEDS: TIOTROPIUM INHALER/CAPSULE (SPIRIVA) INH SCH (08:16)
[2022-04-30] MEDS: ADVAIR HFA 115/21MCG INHALER INH SCH ×2 (08:17→19:26)
[2022-04-30] MEDS: DICLOFENAC EPOLAMINE 1.3 % PATCH TOP SCH ×2 (09:00→21:08)
[2022-04-30] MEDS ORDERED: ALBUTEROL SULFATE 2.5 MG/0.5 ML INH NEB SOLN NEB PRN (09:00)
[2022-04-30] MEDS ORDERED: LEVEMIR (INSULIN DETEMIR) 1 UNITS/0.01ML SC SCH (09:00)
[2022-04-30] MEDS: INSULIN LISPRO (NovoLOG) PER UNIT SC SCH ×4 (09:47→21:00)
[2022-04-30] MEDS: SANTYL OINT 30GM TOP SCH ×3 (09:48→21:06)
[2022-04-30] MEDS: LEVEMIR (INSULIN DETEMIR) 1 UNITS/0.01ML SC SCH ×2 (09:48→21:05)
[2022-04-30] MEDS: BACITRACIN OINTMENT 30GM TUBE TOP SCH ×3 (09:48→21:05)
[2022-04-30] MEDS: ASPIRIN 81 MG CHEW TABLET PO SCH (09:49)
[2022-04-30] MEDS: DOXYCYCLINE HYCLATE 100MG TABLET PO SCH (09:49)
[2022-04-30] MEDS: DOCUSATE SODIUM 100MG CAPSULE PO SCH ×2 (09:49→21:02)
[2022-04-30] MEDS: ATORVASTATIN 20 MG TAB PO SCH (09:49)
[2022-04-30] MEDS: TORSEMIDE 20 MG TAB PO SCH ×2 (09:49→21:04)
[2022-04-30] MEDS: MAGNESIUM OXIDE 400MG TAB (MAG-OX) PO SCH ×2 (09:49→21:02)
[2022-04-30] MEDS: DIGOXIN 0.25 MG TAB PO SCH (09:49)
[2022-04-30] MEDS: SERTRALINE HCL 25 MG TABLET PO SCH (09:49)
[2022-04-30] MEDS: FUROSEMIDE 40 MG TAB PO SCH (09:50)
[2022-04-30] MEDS: METOPROLOL TART 50 MG TAB PO SCH ×2 (09:50→21:06)
[2022-04-30] MEDS: APIXABAN 5 MG TAB (ELIQUIS) PO SCH ×2 (09:50→21:04)
[2022-04-30] MEDS: SERTRALINE HCL 50 MG TAB PO SCH (09:50)
[2022-04-30 10:04] VITALS: O2SAT 88
[2022-04-30] MEDS: GABAPENTIN 400MG CAP PO SCH ×2 (12:56→21:03)
[2022-04-30 14:00] VITALS: BP 148/93
[2022-04-30] MEDS: ANEXSIA, NORCO 7.5MG/325MG TABLET(HYDROCODONE/APAP) PO PRN (15:47)
[2022-04-30] MEDS ORDERED: methylPREDNISolone 125MG 2ML VIAL IV SCH (17:00)
[2022-04-30] MEDS: QUEtiapine FUMARATE 200 MG TAB PO SCH (21:03)
[2022-04-30 22:00] VITALS: BP 102/63
[2022-05-01 00:59] VITALS: O2SAT 89
[2022-05-01 06:00] VITALS: BP 130/70
[2022-05-01 06:48] LABS: HEMATOCRIT 44.3 % (36.0-47.0); HEMOGLOBIN 12.6 g/dl (12.0-15.5); MEAN CORPUSCULAR HEMOGLOBIN 25.3 pg (27.0-33.0); MEAN CORPUSCULAR HGB CONC 28.4 g/dl (32.0-36.5); MEAN CORPUSCULAR VOLUME 88.8 fl (80.0-96.0); PLATELET COUNT, AUTOMATED 190 10^3/uL (150-450); RED BLOOD COUNT 4.99 10^6/uL (4.00-5.40); WHITE BLOOD COUNT 12.7 10^3/uL (4.0-10.0)
[2022-05-01] MEDS: TIOTROPIUM INHALER/CAPSULE (SPIRIVA) INH SCH (07:23)
[2022-05-01] MEDS: ADVAIR HFA 115/21MCG INHALER INH SCH ×2 (07:23→19:33)
[2022-05-01] MEDS: INSULIN LISPRO (NovoLOG) PER UNIT SC SCH ×4 (07:30→21:00)
[2022-05-01 07:46] LABS: ALBUMIN 3.1 GM/DL (3.2-5.2); ALT/SGPT 20 U/L (12-78); BILIRUBIN,TOTAL 0.7 MG/DL (0.2-1.0); BLOOD UREA NITROGEN 33 MG/DL (7-18); CALCIUM LEVEL 8.3 MG/DL (8.8-10.2); CARBON DIOXIDE LEVEL 55 MEQ/L (21-32); CHLORIDE LEVEL 90 MEQ/L (98-107); CREATININE FOR GFR 0.84 MG/DL (0.55-1.30); GLOMERULAR FILTRATION RATE > 60.0 (>45); GLUCOSE, FASTING 94 MG/DL (70-100); MAGNESIUM LEVEL 1.8 MG/DL (1.8-2.4); POTASSIUM SERUM 2.7 MEQ/L (3.5-5.1); SODIUM LEVEL 143 MEQ/L (136-145); TOTAL PROTEIN 6.5 GM/DL (6.4-8.2)
[2022-05-01] MEDS: DICLOFENAC EPOLAMINE 1.3 % PATCH TOP SCH ×2 (09:00→21:00)
[2022-05-01] MEDS: LEVEMIR (INSULIN DETEMIR) 1 UNITS/0.01ML SC SCH ×2 (09:14→22:00)
[2022-05-01] MEDS: methylPREDNISolone 125MG 2ML VIAL IV SCH (09:14)
[2022-05-01] MEDS: ANEXSIA, NORCO 7.5MG/325MG TABLET(HYDROCODONE/APAP) PO PRN ×2 (09:15→17:33)
[2022-05-01] MEDS: GABAPENTIN 400MG CAP PO SCH ×2 (09:15→21:59)
[2022-05-01] MEDS: SERTRALINE HCL 50 MG TAB PO SCH (09:15)
[2022-05-01] MEDS: ASPIRIN 81 MG CHEW TABLET PO SCH (09:15)
[2022-05-01] MEDS: TORSEMIDE 20 MG TAB PO SCH ×2 (09:15→21:58)
[2022-05-01] MEDS: DOCUSATE SODIUM 100MG CAPSULE PO SCH ×2 (09:15→21:57)
[2022-05-01] MEDS: DIGOXIN 0.25 MG TAB PO SCH (09:15)
[2022-05-01] MEDS: APIXABAN 5 MG TAB (ELIQUIS) PO SCH ×2 (09:15→21:58)
[2022-05-01] MEDS: SERTRALINE HCL 25 MG TABLET PO SCH (09:15)
[2022-05-01] MEDS: MAGNESIUM OXIDE 400MG TAB (MAG-OX) PO SCH ×2 (09:16→21:59)
[2022-05-01] MEDS: ATORVASTATIN 20 MG TAB PO SCH (09:16)
[2022-05-01] MEDS: POTASSIUM CHLORIDE 10MEQ SR TABLET PO SCH ×2 (09:16→11:06)
[2022-05-01] MEDS: FUROSEMIDE 20 MG TAB PO SCH (09:16)
[2022-05-01] MEDS: METOPROLOL TART 50 MG TAB PO SCH ×2 (09:16→22:23)
[2022-05-01] MEDS: SANTYL OINT 30GM TOP SCH ×3 (09:17→22:02)
[2022-05-01] MEDS: BACITRACIN OINTMENT 30GM TUBE TOP SCH ×3 (09:17→22:01)
[2022-05-01 10:20] VITALS: O2SAT 95
[2022-05-01 13:50] LABS: CREATININE FOR GFR 1.12 MG/DL (0.55-1.30); GLOMERULAR FILTRATION RATE 52.5 (>45); POTASSIUM SERUM 3.8 MEQ/L (3.5-5.1)
[2022-05-01 14:00] VITALS: BP 101/66
[2022-05-01 21:00] VITALS: BP 96/66
[2022-05-01 22:00] VITALS: BP 151/88
[2022-05-01] MEDS: QUEtiapine FUMARATE 200 MG TAB PO SCH (22:00)
[2022-05-02 04:38] VITALS: BP 115/62
[2022-05-02] MEDS: ANEXSIA, NORCO 7.5MG/325MG TABLET(HYDROCODONE/APAP) PO PRN ×2 (04:45→13:03)
[2022-05-02 07:09] LABS: HEMATOCRIT 43.5 % (36.0-47.0); HEMOGLOBIN 12.6 g/dl (12.0-15.5); MEAN CORPUSCULAR HEMOGLOBIN 25.4 pg (27.0-33.0); MEAN CORPUSCULAR VOLUME 87.7 fl (80.0-96.0); PLATELET COUNT, AUTOMATED 198 10^3/uL (150-450); RED BLOOD COUNT 4.96 10^6/uL (4.00-5.40); WHITE BLOOD COUNT 12.4 10^3/uL (4.0-10.0)
[2022-05-02] MEDS: TIOTROPIUM INHALER/CAPSULE (SPIRIVA) INH SCH (07:25)
[2022-05-02] MEDS: ADVAIR HFA 115/21MCG INHALER INH SCH (07:25)
[2022-05-02 07:28] LABS: ALBUMIN 2.8 GM/DL (3.2-5.2); ALT/SGPT 31 U/L (12-78); BILIRUBIN,TOTAL 0.6 MG/DL (0.2-1.0); BLOOD UREA NITROGEN 26 MG/DL (7-18); CALCIUM LEVEL 7.9 MG/DL (8.8-10.2); CARBON DIOXIDE LEVEL 45 MEQ/L (21-32); CHLORIDE LEVEL 92 MEQ/L (98-107); CREATININE FOR GFR 0.78 MG/DL (0.55-1.30); GLOMERULAR FILTRATION RATE > 60.0 (>45); GLUCOSE, FASTING 100 MG/DL (70-100); MAGNESIUM LEVEL 1.9 MG/DL (1.8-2.4); POTASSIUM SERUM 3.3 MEQ/L (3.5-5.1); SODIUM LEVEL 139 MEQ/L (136-145); TOTAL PROTEIN 6.1 GM/DL (6.4-8.2)
[2022-05-02] MEDS: INSULIN LISPRO (NovoLOG) PER UNIT SC SCH ×2 (07:30→11:57)
[2022-05-02] MEDS: DICLOFENAC EPOLAMINE 1.3 % PATCH TOP SCH (08:09)
[2022-05-02] MEDS: methylPREDNISolone 125MG 2ML VIAL IV SCH (08:10)
[2022-05-02] MEDS: DOCUSATE SODIUM 100MG CAPSULE PO SCH (08:10)
[2022-05-02] MEDS: LEVEMIR (INSULIN DETEMIR) 1 UNITS/0.01ML SC SCH (08:10)
[2022-05-02] MEDS: ATORVASTATIN 20 MG TAB PO SCH (08:10)
[2022-05-02] MEDS: MAGNESIUM OXIDE 400MG TAB (MAG-OX) PO SCH (08:11)
[2022-05-02] MEDS: TORSEMIDE 20 MG TAB PO SCH (08:11)
[2022-05-02] MEDS: SERTRALINE HCL 50 MG TAB PO SCH (08:11)
[2022-05-02] MEDS: SERTRALINE HCL 25 MG TABLET PO SCH (08:11)
[2022-05-02] MEDS: GABAPENTIN 400MG CAP PO SCH (08:11)
[2022-05-02] MEDS: ASPIRIN 81 MG CHEW TABLET PO SCH (08:11)
[2022-05-02] MEDS: DIGOXIN 0.25 MG TAB PO SCH (08:11)
[2022-05-02] MEDS: APIXABAN 5 MG TAB (ELIQUIS) PO SCH (08:11)
[2022-05-02 08:15] VITALS: BP 118/65
[2022-05-02] MEDS: METOPROLOL TART 50 MG TAB PO SCH (08:15)
[2022-05-02] MEDS ORDERED: POTASSIUM CHLORIDE 10MEQ SR TABLET PO ONE ×2 (09:15→10:05)
[2022-05-02] MEDS: FUROSEMIDE 20 MG TAB PO SCH (09:45)
[2022-05-02] MEDS: SANTYL OINT 30GM TOP SCH (09:46)
[2022-05-02] MEDS: BACITRACIN OINTMENT 30GM TUBE TOP SCH (09:46)
[2022-05-02] MEDS ORDERED: COLA100C5 PO (14:38)
[2022-05-02] MEDS ORDERED: PRED20TA PO (14:38)
[2022-05-02] MEDS ORDERED: ALBU2.5V10 NEB (14:41)
[2022-05-02] MEDS ORDERED: POTA-151 PO (14:51)
== END 2022-05-02 17:25 | disposition home or self-care (01) | DRG 190 ==
LOC: M ED 19:36 → M ED INP 19:37 → ENRESERV 04-29 02:51 → M MSPAV 04-29 03:23 → OBSVTOIN 04-29 14:51
PROVIDERS: ADMIT Family Medicine; ATTEND Internal Medicine
DX: I21.A1 Myocardial infarction type 2 (principal); J96.21 Acute and chronic respiratory failure with hypoxia; I50.33 Acute on chronic diastolic (congestive) heart failure; I27.29 Other secondary pulmonary hypertension; J44.1 Chronic obstructive pulmonary disease with (acute) exacerbation; Z68.42 Body mass index [BMI] 45.0-49.9, adult; J96.22 Acute and chronic respiratory failure with hypercapnia; Z99.81 Dependence on supplemental oxygen; I11.0 Hypertensive heart disease with heart failure; E66.01 Morbid (severe) obesity due to excess calories; E11.9 Type 2 diabetes mellitus without complications; R07.89 Other chest pain; G47.33 Obstructive sleep apnea (adult) (pediatric); I48.91 Unspecified atrial fibrillation; Z90.79 Acquired absence of other genital organ(s); Z90.49 Acquired absence of other specified parts of digestive tract; F17.210 Nicotine dependence, cigarettes, uncomplicated; E87.6 Hypokalemia; R11.2 Nausea with vomiting, unspecified; R19.7 Diarrhea, unspecified; E78.5 Hyperlipidemia, unspecified; F32.A Depression, unspecified; F41.9 Anxiety disorder, unspecified; M54.9 Dorsalgia, unspecified; Z20.822 Contact with and (suspected) exposure to COVID-19; Z79.01 Long term (current) use of anticoagulants; Z79.84 Long term (current) use of oral hypoglycemic drugs; Z79.899 Other long term (current) drug therapy; Z88.0 Allergy status to penicillin; T20.06XA Burn of unspecified degree of forehead and cheek, initial encounter

== ENCOUNTER 2022-06-02 12:30 | Emergency (ER) | payer OTHER ==
[~2022-06-02] VITALS: Ht 177.8 cm; Wt 134.1 kg
[~2022-06-02 12:30] MED LIST changes: +ALBU2.5V10 NEB; +COLA100C5 PO; +FURO40TA2 PO; +HYDR-4514 PO; +POTA-151 PO; +med rec comment
[2022-06-02 14:11] VITALS: BP 159/88
== END 2022-06-02 14:12 | disposition home or self-care (01) ==
LOC: M ED 12:30
DX: J96.11 Chronic respiratory failure with hypoxia (principal); I48.91 Unspecified atrial fibrillation; I10 Essential (primary) hypertension; E11.9 Type 2 diabetes mellitus without complications; E78.5 Hyperlipidemia, unspecified; J44.9 Chronic obstructive pulmonary disease, unspecified; F17.200 Nicotine dependence, unspecified, uncomplicated; Z79.01 Long term (current) use of anticoagulants; Z99.81 Dependence on supplemental oxygen; Z79.52 Long term (current) use of systemic steroids; Z79.4 Long term (current) use of insulin; Z79.899 Other long term (current) drug therapy; Z88.0 Allergy status to penicillin

== ENCOUNTER → 2022-06-24 | Outpatient (CLI) | payer OTHER | LOC: M PAIN 11:00 | PROVIDERS: ATTEND Nurse Practitioner Family | DX: M79.2 Neuralgia and neuritis, unspecified (principal); M51.16 Intervertebral disc disorders with radiculopathy, lumbar region; G89.29 Other chronic pain; E11.9 Type 2 diabetes mellitus without complications; J44.9 Chronic obstructive pulmonary disease, unspecified; K21.9 Gastro-esophageal reflux disease without esophagitis; F17.210 Nicotine dependence, cigarettes, uncomplicated; Z86.14 Personal history of Methicillin resistant Staphylococcus aureus infection; Z86.59 Personal history of other mental and behavioral disorders; Z88.0 Allergy status to penicillin; E66.01 Morbid (severe) obesity due to excess calories; Z68.42 Body mass index [BMI] 45.0-49.9, adult; Z79.01 Long term (current) use of anticoagulants; Z79.84 Long term (current) use of oral hypoglycemic drugs; Z79.899 Other long term (current) drug therapy ==

== ENCOUNTER 2022-08-04 21:27 | Inpatient (IN) | payer OTHER ==
[~2022-08-04] VITALS: Ht 172.7 cm; Wt 122.9 kg
[2022-08-04 22:39] LABS: BASO % 0.2 % (0.0-1.0); HEMATOCRIT 48.4 % (36.0-47.0); HEMOGLOBIN 13.8 g/dl (12.0-15.5); LYMPH # 1.3 10^3/uL (1.5-5.0); LYMPH % 7.5 % (24.0-44.0); MEAN CORPUSCULAR HEMOGLOBIN 23.6 pg (27.0-33.0); MEAN CORPUSCULAR HGB CONC 28.5 g/dl (32.0-36.5); MEAN CORPUSCULAR VOLUME 82.9 fl (80.0-96.0); MONO # 1.4 10^3/uL (0.0-0.8); NEUTROPHILS # 14.4 10^3/uL (1.5-8.5); NEUTROPHILS % 83.4 % (36.0-66.0); PLATELET COUNT, AUTOMATED 365 10^3/uL (150-450); RED BLOOD COUNT 5.84 10^6/uL (4.00-5.40); WHITE BLOOD COUNT 17.2 10^3/uL (4.0-10.0)
[2022-08-04 22:50] LABS: INR 1.91; PROTHROMBIN TIME 22.3 SECONDS (12.7-14.5)
[2022-08-04 23:19] LABS: ALBUMIN 3.3 GM/DL (3.2-5.2); BILIRUBIN,DIRECT 0.5 MG/DL (0.0-0.2); BILIRUBIN,TOTAL 0.9 MG/DL (0.2-1.0); CALCIUM LEVEL 8.2 MG/DL (8.8-10.2); CREATININE FOR GFR 2.34 MG/DL (0.55-1.30); GLOMERULAR FILTRATION RATE 22.4 (>45); POTASSIUM SERUM 5.2 MEQ/L (3.5-5.1); THYROID STIMULATING HORMONE 2.6 uIU/ML (0.358-3.740); TOTAL PROTEIN 6.8 GM/DL (6.4-8.2)
[2022-08-04 23:22] LABS: CK-MB VALUE MASS 12.3 NG/ML (<3.6); MB/CK RELATIVE INDEX 3.93 (< OR =4)
[2022-08-05 00:26] LABS: CK-MB VALUE MASS 11.4 NG/ML (<3.6); MB/CK RELATIVE INDEX 3.86 (< OR =4)
[2022-08-05] MEDS ORDERED: METF10004 PO (00:26)
[2022-08-05] MEDS ORDERED: HOME MED LIST COMPLETE! XX SCH (00:30)
[2022-08-05] MEDS: NS 1,000 ML IV SCH ×2 (00:30→10:19)
[2022-08-05] MEDS ORDERED: NS 500 ML IV ONE (00:30)
[2022-08-05] MEDS ORDERED: HYDROMORPHONE HCL 0.5 MG/ 0.5 ML SYRINGE (J1170 PER 1) IV PRN (01:05)
[2022-08-05] MEDS ORDERED: METOPROLOL TART 25 MG TABLET PO ONE (01:05)
[2022-08-05] MEDS ORDERED: ASPIRIN 81 MG CHEW TABLET PO ONE (01:05)
[2022-08-05] MEDS ORDERED: ALBUTEROL SULFATE 2.5 MG/0.5 ML INH NEB SOLN NEB PRN (01:05)
[2022-08-05] MEDS ORDERED: PANTOPRAZOLE 40MG VIAL IV ONE (01:05)
[2022-08-05] MEDS ORDERED: DEXTROSE 50% 50 ML SYRINGE IV PRN (01:55)
[2022-08-05] MEDS ORDERED: GLUCAGON INJ 1MG VIAL SC PRN (01:55)
[2022-08-05] MEDS ORDERED: GLUCOSE 4GM CHEW TABLET PO PRN (01:55)
[2022-08-05] MEDS: IPRATROPIUM 0.5MG/ALBUTEROL 2.5MG INH SOL UD 3ML (DUONEB) NEB SCH ×4 (02:00→19:46)
[2022-08-05 03:06] VITALS: BP 146/95
[2022-08-05 05:18] LABS: APPEARANCE, URINE MANUAL HAZY (CLEAR); COLOR, URINE MANUAL YELLOW (YELLOW)
[2022-08-05 05:19] LABS: BILIRUBIN, URINE MANUAL NEGATIVE (NEGATIVE); GLUCOSE, URINE (UA) MANUAL NEGATIVE (NEGATIVE); KETONE, URINE MANUAL 1+ mg/dL (NEGATIVE); NITRITE, URINE MANUAL POSITIVE (NEGATIVE); PROTEIN, URINE MANUAL 2+ mg/dL (NEGATIVE); SPECIFIC GRAVITY,URINE MANUAL 1.025 (1.002-1.035); UROBILINOGEN, URINE MANUAL NORMAL (NORMAL)
[2022-08-05 05:20] LABS: BLOOD URINE MANUAL POSITIVE (NEGATIVE); LEUKOCYTE ESTERASE, URINE MAN TRACE (NEGATIVE)
[2022-08-05 05:24] LABS: RBC, URINE NONE SEEN /hpf (0-3); SQUAMOUS EPITHELIAL CELL URINE SMALL AMOUNT /hpf (SMALL AMT)
[2022-08-05 05:25] LABS: BACTERIA, URINE LARGE AMOUNT; HYALINE CAST, URINE NONE SEEN /lpf (0-1)
[2022-08-05 06:42] LABS: VENOUS BASE EXCESS -3.5 (-2.0-2.0); VENOUS HCO3 21.6 MEQ/L (23.0-27.0); VENOUS O2 SATURATION 85.3 % (60.0-80.0); VENOUS PARTIAL PRESSURE CO2 39.5 mmHg (38.0-50.0); VENOUS PARTIAL PRESSURE O2 53.5 mmHg (30.0-50.0); VENOUS PH 7.356 UNITS (7.330-7.430); VENOUS STANDARD HCO3 21.3 MEQ/L; VENOUS TOTAL CO2 22.8 MEQ/L (24.0-28.0)
[2022-08-05 07:25] LABS: CREATININE FOR GFR 1.91 MG/DL (0.55-1.30); GLOMERULAR FILTRATION RATE 28.3 (>45); POTASSIUM SERUM 5.3 MEQ/L (3.5-5.1)
[2022-08-05] MEDS: INSULIN LISPRO (NovoLOG) PER UNIT SC SCH ×4 (07:30→20:13)
[2022-08-05] MEDS: ADVAIR HFA 230/21MCG INHALER INH SCH ×2 (07:32→19:48)
[2022-08-05 07:38] VITALS: BP 121/82
[2022-08-05] MEDS: DOCUSATE SODIUM 100MG CAPSULE PO SCH ×2 (08:52→20:13)
[2022-08-05] MEDS: METOPROLOL TART 50 MG TAB PO SCH ×2 (08:54→20:13)
[2022-08-05] MEDS: DIGOXIN 0.25 MG TAB PO SCH (08:54)
[2022-08-05] MEDS ORDERED: APIXABAN 5 MG TAB (ELIQUIS) PO SCH (09:00)
[2022-08-05] MEDS: ANEXSIA, NORCO 7.5MG/325MG TABLET(HYDROCODONE/APAP) PO PRN ×2 (09:56→19:01)
[2022-08-05] MEDS: GABAPENTIN 400MG CAP PO SCH ×3 (10:26→20:12)
[2022-08-05] MEDS: SERTRALINE HCL 25 MG TABLET PO SCH (10:26)
[2022-08-05] MEDS: ATORVASTATIN 20 MG TAB PO SCH (10:26)
[2022-08-05] MEDS: MAGNESIUM OXIDE 400MG TAB (MAG-OX) PO SCH ×2 (10:26→20:12)
[2022-08-05] MEDS: TORSEMIDE 20 MG TAB PO SCH ×2 (10:27→16:29)
[2022-08-05 10:48] LABS: BASO % 0.2 % (0.0-1.0); EOS % 0.1 % (0.0-3.0); HEMATOCRIT 42.1 % (36.0-47.0); HEMOGLOBIN 12.2 g/dl (12.0-15.5); LYMPH # 0.9 10^3/uL (1.5-5.0); LYMPH % 6.9 % (24.0-44.0); MEAN CORPUSCULAR VOLUME 82.7 fl (80.0-96.0); MONO # 0.8 10^3/uL (0.0-0.8); MONO % 6.4 % (2.0-8.0); NEUTROPHILS # 10.5 10^3/uL (1.5-8.5); NEUTROPHILS % 85.7 % (36.0-66.0); PLATELET COUNT, AUTOMATED 319 10^3/uL (150-450); RED BLOOD COUNT 5.09 10^6/uL (4.00-5.40); WHITE BLOOD COUNT 12.2 10^3/uL (4.0-10.0)
[2022-08-05 11:08] LABS: ERYTHROCYTE SEDIMENTATION RATE 2 mm/hr (0-30)
[2022-08-05 11:21] LABS: C REACTIVE PROTEIN QUANTITATIV 2.08 MG/DL (0.00-0.30); POTASSIUM SERUM 4.7 MEQ/L (3.5-5.1)
[2022-08-05 14:14] VITALS: BP 115/76
[2022-08-05 16:00] VITALS: BP 137/80
[2022-08-05 19:39] LABS: HEMATOCRIT 44.5 % (36.0-47.0); HEMOGLOBIN 12.7 g/dl (12.0-15.5)
[2022-08-05 19:56] VITALS: BP 130/82
[2022-08-06] MEDS: IPRATROPIUM 0.5MG/ALBUTEROL 2.5MG INH SOL UD 3ML (DUONEB) NEB SCH ×4 (01:09→20:17)
[2022-08-06] MEDS: ANEXSIA, NORCO 7.5MG/325MG TABLET(HYDROCODONE/APAP) PO PRN (03:00)
[2022-08-06 04:00] VITALS: BP 116/82
[2022-08-06 05:03] LABS: BASO % 0.2 % (0.0-1.0); EOS % 0.3 % (0.0-3.0); HEMATOCRIT 42.1 % (36.0-47.0); LYMPH # 1.5 10^3/uL (1.5-5.0); LYMPH % 15.3 % (24.0-44.0); MEAN CORPUSCULAR HGB CONC 28.5 g/dl (32.0-36.5); MONO # 0.8 10^3/uL (0.0-0.8); MONO % 7.8 % (2.0-8.0); NEUTROPHILS # 7.6 10^3/uL (1.5-8.5); PLATELET COUNT, AUTOMATED 292 10^3/uL (150-450); RED BLOOD COUNT 5.01 10^6/uL (4.00-5.40); WHITE BLOOD COUNT 9.9 10^3/uL (4.0-10.0)
[2022-08-06 05:34] LABS: CREATININE FOR GFR 1.47 MG/DL (0.55-1.30); GLOMERULAR FILTRATION RATE 38.3 (>45); MAGNESIUM LEVEL 1.5 MG/DL (1.8-2.4); POTASSIUM SERUM 4.3 MEQ/L (3.5-5.1)
[2022-08-06] MEDS ORDERED: MAG SULF 1GM/100ML (MAG RUN) 1 GM in IV 1 EA IV ONE (06:50)
[2022-08-06] MEDS: ADVAIR HFA 230/21MCG INHALER INH SCH ×2 (07:02→20:17)
[2022-08-06 07:39] VITALS: BP 122/82
[2022-08-06] MEDS: INSULIN LISPRO (NovoLOG) PER UNIT SC SCH ×4 (08:04→20:34)
[2022-08-06 08:16] LABS: CK-MB VALUE MASS 3.1 NG/ML (<3.6); MB/CK RELATIVE INDEX 2.04 (< OR =4)
[2022-08-06] MEDS: MAG SULF 1GM/100ML (MAG RUN) 1 GM in IV 1 EA IV SCH ×2 (08:39→10:44)
[2022-08-06] MEDS: MAGNESIUM OXIDE 400MG TAB (MAG-OX) PO SCH ×2 (08:59→20:33)
[2022-08-06] MEDS: ATORVASTATIN 20 MG TAB PO SCH (08:59)
[2022-08-06] MEDS: DOCUSATE SODIUM 100MG CAPSULE PO SCH ×2 (09:00→20:34)
[2022-08-06] MEDS: SERTRALINE HCL 25 MG TABLET PO SCH (09:00)
[2022-08-06] MEDS ORDERED: SERTRALINE HCL 50 MG TAB PO SCH (09:00)
[2022-08-06] MEDS: GABAPENTIN 400MG CAP PO SCH ×3 (09:00→20:33)
[2022-08-06] MEDS: TORSEMIDE 20 MG TAB PO SCH ×2 (09:01→17:28)
[2022-08-06] MEDS: DIGOXIN 0.25 MG TAB PO SCH (09:01)
[2022-08-06] MEDS: METOPROLOL TART 50 MG TAB PO SCH ×2 (09:02→20:34)
[2022-08-06 10:06] VITALS: BP 122/82
[2022-08-06 12:00] VITALS: BP 130/82
[2022-08-06 12:14] VITALS: BP 130/82
[2022-08-06] MEDS: VANICREAM MOISTURIZING SKIN CREAM 113GM TUBE TOP SCH ×2 (13:20→20:35)
[2022-08-06] MEDS: ASPIRIN 81MG ENTERIC TABLET PO SCH (15:17)
[2022-08-06 20:00] VITALS: BP 130/78
[2022-08-07] MEDS: ANEXSIA, NORCO 7.5MG/325MG TABLET(HYDROCODONE/APAP) PO PRN ×3 (00:36→20:16)
[2022-08-07] MEDS: IPRATROPIUM 0.5MG/ALBUTEROL 2.5MG INH SOL UD 3ML (DUONEB) NEB SCH ×4 (01:16→19:25)
[2022-08-07 04:00] VITALS: BP 152/92
[2022-08-07 05:39] LABS: BASO % 0.3 % (0.0-1.0); EOS # 0.1 10^3/uL (0.0-0.5); EOS % 0.7 % (0.0-3.0); HEMATOCRIT 46.1 % (36.0-47.0); HEMOGLOBIN 12.6 g/dl (12.0-15.5); LYMPH # 2.6 10^3/uL (1.5-5.0); LYMPH % 25.7 % (24.0-44.0); MEAN CORPUSCULAR HEMOGLOBIN 23.2 pg (27.0-33.0); MEAN CORPUSCULAR HGB CONC 27.3 g/dl (32.0-36.5); MEAN CORPUSCULAR VOLUME 84.7 fl (80.0-96.0); MONO % 10.1 % (2.0-8.0); NEUTROPHILS # 6.2 10^3/uL (1.5-8.5); NEUTROPHILS % 62.7 % (36.0-66.0); PLATELET COUNT, AUTOMATED 348 10^3/uL (150-450); RED BLOOD COUNT 5.44 10^6/uL (4.00-5.40)
[2022-08-07 06:12] LABS: CALCIUM LEVEL 8.3 MG/DL (8.8-10.2); CREATININE FOR GFR 1.52 MG/DL (0.55-1.30); GLOMERULAR FILTRATION RATE 36.9 (>45); MAGNESIUM LEVEL 2.1 MG/DL (1.8-2.4); POTASSIUM SERUM 4.7 MEQ/L (3.5-5.1)
[2022-08-07] MEDS: ADVAIR HFA 230/21MCG INHALER INH SCH ×2 (07:16→19:25)
[2022-08-07 08:09] VITALS: BP 119/76
[2022-08-07] MEDS: DOCUSATE SODIUM 100MG CAPSULE PO SCH ×2 (08:12→20:12)
[2022-08-07] MEDS: INSULIN LISPRO (NovoLOG) PER UNIT SC SCH ×5 (08:12→21:00)
[2022-08-07] MEDS: MAGNESIUM OXIDE 400MG TAB (MAG-OX) PO SCH ×2 (08:13→20:12)
[2022-08-07] MEDS: SERTRALINE HCL 25 MG TABLET PO SCH (08:13)
[2022-08-07] MEDS: ATORVASTATIN 20 MG TAB PO SCH (08:13)
[2022-08-07] MEDS: DIGOXIN 0.25 MG TAB PO SCH (08:13)
[2022-08-07] MEDS: ASPIRIN 81MG ENTERIC TABLET PO SCH (08:13)
[2022-08-07] MEDS: TORSEMIDE 20 MG TAB PO SCH ×2 (08:13→17:19)
[2022-08-07] MEDS: GABAPENTIN 400MG CAP PO SCH ×3 (08:14→20:12)
[2022-08-07] MEDS: METOPROLOL TART 50 MG TAB PO SCH ×2 (08:14→20:13)
[2022-08-07] MEDS: VANICREAM MOISTURIZING SKIN CREAM 113GM TUBE TOP SCH ×2 (08:14→20:13)
[2022-08-07 15:50] VITALS: BP 108/74
[2022-08-07 16:22] LABS: CK-MB VALUE MASS 2.5 NG/ML (<3.6); MB/CK RELATIVE INDEX 3.29 (< OR =4)
[2022-08-07 20:00] VITALS: BP 172/94
[2022-08-07] MEDS: APIXABAN 2.5 MG TAB (ELIQUIS) PO SCH (20:13)
[2022-08-08] MEDS: IPRATROPIUM 0.5MG/ALBUTEROL 2.5MG INH SOL UD 3ML (DUONEB) NEB SCH ×4 (01:23→19:12)
[2022-08-08 04:00] VITALS: BP 116/67
[2022-08-08 05:27] LABS: BASO % 0.3 % (0.0-1.0); EOS # 0.1 10^3/uL (0.0-0.5); EOS % 1.2 % (0.0-3.0); HEMATOCRIT 41.6 % (36.0-47.0); HEMOGLOBIN 11.8 g/dl (12.0-15.5); LYMPH # 1.9 10^3/uL (1.5-5.0); LYMPH % 19.8 % (24.0-44.0); MEAN CORPUSCULAR HEMOGLOBIN 23.6 pg (27.0-33.0); MEAN CORPUSCULAR HGB CONC 28.4 g/dl (32.0-36.5); MEAN CORPUSCULAR VOLUME 83.4 fl (80.0-96.0); MONO # 1.1 10^3/uL (0.0-0.8); NEUTROPHILS # 6.3 10^3/uL (1.5-8.5); NEUTROPHILS % 66.2 % (36.0-66.0); PLATELET COUNT, AUTOMATED 272 10^3/uL (150-450); RED BLOOD COUNT 4.99 10^6/uL (4.00-5.40); WHITE BLOOD COUNT 9.5 10^3/uL (4.0-10.0)
[2022-08-08 06:00] LABS: CALCIUM LEVEL 8.2 MG/DL (8.8-10.2); CREATININE FOR GFR 1.18 MG/DL (0.55-1.30); GLOMERULAR FILTRATION RATE 49.4 (>45); POTASSIUM SERUM 3.6 MEQ/L (3.5-5.1)
[2022-08-08] MEDS: ADVAIR HFA 230/21MCG INHALER INH SCH ×2 (07:16→19:12)
[2022-08-08 08:00] VITALS: BP 137/67
[2022-08-08] MEDS: SERTRALINE HCL 25 MG TABLET PO SCH (08:15)
[2022-08-08] MEDS: GABAPENTIN 400MG CAP PO SCH ×3 (08:16→20:47)
[2022-08-08] MEDS: ATORVASTATIN 20 MG TAB PO SCH (08:16)
[2022-08-08] MEDS: VANICREAM MOISTURIZING SKIN CREAM 113GM TUBE TOP SCH ×2 (08:16→20:48)
[2022-08-08] MEDS: TORSEMIDE 20 MG TAB PO SCH (08:16)
[2022-08-08] MEDS: DOCUSATE SODIUM 100MG CAPSULE PO SCH ×2 (08:16→20:48)
[2022-08-08] MEDS: MAGNESIUM OXIDE 400MG TAB (MAG-OX) PO SCH ×2 (08:16→20:47)
[2022-08-08] MEDS: ASPIRIN 81MG ENTERIC TABLET PO SCH (08:16)
[2022-08-08] MEDS: APIXABAN 2.5 MG TAB (ELIQUIS) PO SCH (08:16)
[2022-08-08] MEDS: DIGOXIN 0.25 MG TAB PO SCH (08:19)
[2022-08-08] MEDS: METOPROLOL TART 50 MG TAB PO SCH ×2 (08:19→20:47)
[2022-08-08] MEDS: FUROSEMIDE 100MG/10ML VIAL (J1940) IV SCH ×2 (10:07→17:11)
[2022-08-08 11:41] VITALS: BP 131/89
[2022-08-08] MEDS: INSULIN LISPRO (NovoLOG) PER UNIT SC SCH ×3 (11:57→20:35)
[2022-08-08] MEDS: ANEXSIA, NORCO 7.5MG/325MG TABLET(HYDROCODONE/APAP) PO PRN (15:34)
[2022-08-08 20:11] VITALS: BP 138/72
[2022-08-08 22:26] LABS: BLOOD UREA NITROGEN 47 MG/DL (7-18); CALCIUM LEVEL 8.3 MG/DL (8.8-10.2); CARBON DIOXIDE LEVEL 39 MEQ/L (21-32); CHLORIDE LEVEL 97 MEQ/L (98-107); CREATININE FOR GFR 1.18 MG/DL (0.55-1.30); GLOMERULAR FILTRATION RATE 49.4 (>45); GLUCOSE, FASTING 131 MG/DL (70-100); MAGNESIUM LEVEL 1.6 MG/DL (1.8-2.4); POTASSIUM SERUM 4.9 MEQ/L (3.5-5.1); SODIUM LEVEL 135 MEQ/L (136-145)
[2022-08-09] MEDS: ANEXSIA, NORCO 7.5MG/325MG TABLET(HYDROCODONE/APAP) PO PRN ×4 (00:39→23:56)
[2022-08-09] MEDS: FUROSEMIDE 100MG/10ML VIAL (J1940) IV SCH ×3 (02:30→17:02)
[2022-08-09] MEDS: IPRATROPIUM 0.5MG/ALBUTEROL 2.5MG INH SOL UD 3ML (DUONEB) NEB SCH ×4 (02:36→19:32)
[2022-08-09 05:21] VITALS: BP 138/83
[2022-08-09 06:16] LABS: BASO % 0.3 % (0.0-1.0); EOS # 0.1 10^3/uL (0.0-0.5); EOS % 1.2 % (0.0-3.0); HEMATOCRIT 44.5 % (36.0-47.0); HEMOGLOBIN 12.4 g/dl (12.0-15.5); LYMPH # 1.6 10^3/uL (1.5-5.0); MEAN CORPUSCULAR HEMOGLOBIN 23.3 pg (27.0-33.0); MEAN CORPUSCULAR HGB CONC 27.9 g/dl (32.0-36.5); MEAN CORPUSCULAR VOLUME 83.6 fl (80.0-96.0); MONO # 1.1 10^3/uL (0.0-0.8); MONO % 10.3 % (2.0-8.0); NEUTROPHILS # 7.6 10^3/uL (1.5-8.5); NEUTROPHILS % 72.8 % (36.0-66.0); PLATELET COUNT, AUTOMATED 280 10^3/uL (150-450); RED BLOOD COUNT 5.32 10^6/uL (4.00-5.40); WHITE BLOOD COUNT 10.5 10^3/uL (4.0-10.0)
[2022-08-09 06:52] LABS: BLOOD UREA NITROGEN 44 MG/DL (7-18); CALCIUM LEVEL 8.5 MG/DL (8.8-10.2); CARBON DIOXIDE LEVEL 41 MEQ/L (21-32); CHLORIDE LEVEL 94 MEQ/L (98-107); CREATININE FOR GFR 0.95 MG/DL (0.55-1.30); GLOMERULAR FILTRATION RATE > 60.0 (>45); GLUCOSE, FASTING 103 MG/DL (70-100); MAGNESIUM LEVEL 1.6 MG/DL (1.8-2.4); POTASSIUM SERUM 3.1 MEQ/L (3.5-5.1); SODIUM LEVEL 139 MEQ/L (136-145)
[2022-08-09] MEDS: ADVAIR HFA 230/21MCG INHALER INH SCH ×2 (07:29→19:32)
[2022-08-09 08:00] VITALS: BP 132/90
[2022-08-09] MEDS: INSULIN LISPRO (NovoLOG) PER UNIT SC SCH ×4 (08:32→21:00)
[2022-08-09] MEDS: GABAPENTIN 400MG CAP PO SCH ×3 (08:35→20:57)
[2022-08-09] MEDS: SERTRALINE HCL 25 MG TABLET PO SCH (08:35)
[2022-08-09] MEDS: ATORVASTATIN 20 MG TAB PO SCH (08:35)
[2022-08-09] MEDS: DOCUSATE SODIUM 100MG CAPSULE PO SCH ×2 (08:35→20:57)
[2022-08-09] MEDS: ASPIRIN 81MG ENTERIC TABLET PO SCH (08:35)
[2022-08-09] MEDS: MAGNESIUM OXIDE 400MG TAB (MAG-OX) PO SCH ×2 (08:36→20:58)
[2022-08-09] MEDS: POTASSIUM CHLORIDE 10MEQ SR TABLET PO SCH ×2 (08:36→10:54)
[2022-08-09] MEDS: DIGOXIN 0.25 MG TAB PO SCH (08:37)
[2022-08-09] MEDS: METOPROLOL TART 50 MG TAB PO SCH ×2 (08:37→21:30)
[2022-08-09] MEDS: VANICREAM MOISTURIZING SKIN CREAM 113GM TUBE TOP SCH ×2 (08:38→21:30)
[2022-08-09 13:44] VITALS: BP 136/88
[2022-08-09] MEDS ORDERED: POTASSIUM CHLORIDE 10MEQ SR TABLET PO ONE (14:00)
[2022-08-09] MEDS: BACTRIM 160MG/800MG DS TAB PO SCH ×2 (15:00→20:57)
[2022-08-09 20:52] VITALS: BP 126/86
[2022-08-09] MEDS: APIXABAN 2.5 MG TAB (ELIQUIS) PO SCH (20:57)
[2022-08-10] MEDS: IPRATROPIUM 0.5MG/ALBUTEROL 2.5MG INH SOL UD 3ML (DUONEB) NEB SCH ×3 (01:30→13:09)
[2022-08-10] MEDS: FUROSEMIDE 100MG/10ML VIAL (J1940) IV SCH ×2 (02:18→10:42)
[2022-08-10 06:00] VITALS: BP 126/86
[2022-08-10 06:25] LABS: BASO % 0.2 % (0.0-1.0); EOS # 0.1 10^3/uL (0.0-0.5); EOS % 1.1 % (0.0-3.0); HEMATOCRIT 45.1 % (36.0-47.0); HEMOGLOBIN 12.4 g/dl (12.0-15.5); LYMPH % 9.2 % (24.0-44.0); MEAN CORPUSCULAR HEMOGLOBIN 23.1 pg (27.0-33.0); MEAN CORPUSCULAR HGB CONC 27.5 g/dl (32.0-36.5); MONO # 1.1 10^3/uL (0.0-0.8); MONO % 10.2 % (2.0-8.0); NEUTROPHILS # 8.4 10^3/uL (1.5-8.5); NEUTROPHILS % 78.8 % (36.0-66.0); PLATELET COUNT, AUTOMATED 257 10^3/uL (150-450); RED BLOOD COUNT 5.37 10^6/uL (4.00-5.40); WHITE BLOOD COUNT 10.7 10^3/uL (4.0-10.0)
[2022-08-10 07:27] LABS: BLOOD UREA NITROGEN 37 MG/DL (7-18); CALCIUM LEVEL 8.2 MG/DL (8.8-10.2); CARBON DIOXIDE LEVEL 46 MEQ/L (21-32); CHLORIDE LEVEL 91 MEQ/L (98-107); CREATININE FOR GFR 0.89 MG/DL (0.55-1.30); GLOMERULAR FILTRATION RATE > 60.0 (>45); GLUCOSE, FASTING 106 MG/DL (70-100); MAGNESIUM LEVEL 1.3 MG/DL (1.8-2.4); POTASSIUM SERUM 3.1 MEQ/L (3.5-5.1); SODIUM LEVEL 142 MEQ/L (136-145)
[2022-08-10] MEDS: ADVAIR HFA 230/21MCG INHALER INH SCH ×2 (07:40→19:12)
[2022-08-10] MEDS ORDERED: MAG SULF 1GM/100ML (MAG RUN) 1 GM in IV 1 EA IV ONE (08:00)
[2022-08-10 08:45] LABS: NT-PRO BNP 3921 PG/ML (<125)
[2022-08-10] MEDS: DOCUSATE SODIUM 100MG CAPSULE PO SCH ×2 (09:09→20:32)
[2022-08-10] MEDS: BACTRIM 160MG/800MG DS TAB PO SCH ×2 (09:09→20:32)
[2022-08-10] MEDS: APIXABAN 2.5 MG TAB (ELIQUIS) PO SCH ×2 (09:09→20:32)
[2022-08-10] MEDS: INSULIN LISPRO (NovoLOG) PER UNIT SC SCH ×4 (09:09→21:00)
[2022-08-10] MEDS: ATORVASTATIN 20 MG TAB PO SCH (09:09)
[2022-08-10] MEDS: ASPIRIN 81MG ENTERIC TABLET PO SCH (09:09)
[2022-08-10] MEDS: SERTRALINE HCL 25 MG TABLET PO SCH (09:09)
[2022-08-10] MEDS: GABAPENTIN 400MG CAP PO SCH ×3 (09:09→20:32)
[2022-08-10] MEDS: VANICREAM MOISTURIZING SKIN CREAM 113GM TUBE TOP SCH ×2 (09:14→20:33)
[2022-08-10] MEDS: MAGNESIUM OXIDE 400MG TAB (MAG-OX) PO SCH ×3 (09:15→20:32)
[2022-08-10] MEDS: POTASSIUM CHLORIDE 10MEQ SR TABLET PO SCH ×2 (09:15→10:00)
[2022-08-10] MEDS: METOPROLOL TART 50 MG TAB PO SCH ×2 (09:16→20:32)
[2022-08-10] MEDS: ANEXSIA, NORCO 7.5MG/325MG TABLET(HYDROCODONE/APAP) PO PRN ×2 (09:17→17:36)
[2022-08-10] MEDS: DIGOXIN 0.25 MG TAB PO SCH (09:19)
[2022-08-10] MEDS ORDERED: POTASSIUM CHLORIDE 10MEQ SR TABLET PO SCH (13:00)
[2022-08-10] MEDS: NYSTATIN 100,000 UNITS/GM TOPICAL PWD 15 GM TOP PRN (13:05)
[2022-08-10 14:00] VITALS: BP 122/83
[2022-08-10] MEDS ORDERED: CALCIUM CARBONATE 500 MG CHEW U/D PO PRN (21:05)
[2022-08-10 22:00] VITALS: BP 109/59
[2022-08-10] MEDS ORDERED: MAALOX 30 ML SUSP *UDC PO ONE (22:00)
[2022-08-11 06:00] VITALS: BP 131/85
[2022-08-11 06:09] LABS: HEMATOCRIT 44.4 % (36.0-47.0); HEMOGLOBIN 12.1 g/dl (12.0-15.5); MEAN CORPUSCULAR HEMOGLOBIN 23.1 pg (27.0-33.0); MEAN CORPUSCULAR HGB CONC 27.3 g/dl (32.0-36.5); MEAN CORPUSCULAR VOLUME 84.9 fl (80.0-96.0); PLATELET COUNT, AUTOMATED 248 10^3/uL (150-450); RED BLOOD COUNT 5.23 10^6/uL (4.00-5.40); WHITE BLOOD COUNT 11.1 10^3/uL (4.0-10.0)
[2022-08-11 07:01] LABS: ALBUMIN 2.7 GM/DL (3.2-5.2); ALT/SGPT 30 U/L (12-78); BILIRUBIN,TOTAL 1.1 MG/DL (0.2-1.0); BLOOD UREA NITROGEN 26 MG/DL (7-18); CALCIUM LEVEL 8.1 MG/DL (8.8-10.2); CARBON DIOXIDE LEVEL 49 MEQ/L (21-32); CHLORIDE LEVEL 90 MEQ/L (98-107); CREATININE FOR GFR 0.83 MG/DL (0.55-1.30); GLOMERULAR FILTRATION RATE > 60.0 (>45); GLUCOSE, FASTING 109 MG/DL (70-100); MAGNESIUM LEVEL 1.5 MG/DL (1.8-2.4); POTASSIUM SERUM 3.3 MEQ/L (3.5-5.1); SODIUM LEVEL 138 MEQ/L (136-145); TOTAL PROTEIN 5.5 GM/DL (6.4-8.2)
[2022-08-11] MEDS ORDERED: POTASSIUM CHLORIDE 10MEQ SR TABLET PO ONE ×2 (07:15→10:00)
[2022-08-11] MEDS: ADVAIR HFA 230/21MCG INHALER INH SCH ×2 (07:36→19:15)
[2022-08-11] MEDS ORDERED: MAG SULF 1GM/100ML (MAG RUN) 1 GM in IV 1 EA IV ONE (08:00)
[2022-08-11] MEDS: DOCUSATE SODIUM 100MG CAPSULE PO SCH ×2 (08:54→20:30)
[2022-08-11] MEDS: MAGNESIUM OXIDE 400MG TAB (MAG-OX) PO SCH ×3 (08:54→20:29)
[2022-08-11] MEDS: APIXABAN 2.5 MG TAB (ELIQUIS) PO SCH (08:54)
[2022-08-11] MEDS: ASPIRIN 81MG ENTERIC TABLET PO SCH (08:54)
[2022-08-11] MEDS: DIGOXIN 0.25 MG TAB PO SCH (08:54)
[2022-08-11] MEDS: INSULIN LISPRO (NovoLOG) PER UNIT SC SCH ×4 (08:54→20:34)
[2022-08-11] MEDS: BACTRIM 160MG/800MG DS TAB PO SCH ×2 (08:54→20:38)
[2022-08-11] MEDS: SERTRALINE HCL 25 MG TABLET PO SCH (08:55)
[2022-08-11] MEDS: GABAPENTIN 400MG CAP PO SCH ×3 (08:55→20:29)
[2022-08-11] MEDS: ATORVASTATIN 20 MG TAB PO SCH (08:55)
[2022-08-11] MEDS: VANICREAM MOISTURIZING SKIN CREAM 113GM TUBE TOP SCH ×2 (08:56→20:36)
[2022-08-11] MEDS: ANEXSIA, NORCO 7.5MG/325MG TABLET(HYDROCODONE/APAP) PO PRN ×2 (08:58→17:17)
[2022-08-11] MEDS: METOPROLOL TART 50 MG TAB PO SCH ×2 (09:09→20:34)
[2022-08-11] MEDS: HYDROCORTISONE 1% OINTMENT 30GM TOP SCH ×2 (13:11→20:35)
[2022-08-11 14:00] VITALS: BP 127/79
[2022-08-11] MEDS: APIXABAN 5 MG TAB (ELIQUIS) PO SCH (20:30)
[2022-08-11] MEDS: NYSTATIN 100,000 UNITS/GM TOPICAL PWD 15 GM TOP PRN (20:37)
[2022-08-11 21:08] VITALS: BP 122/73
[2022-08-12 05:47] VITALS: BP 128/77
[2022-08-12] MEDS: ANEXSIA, NORCO 7.5MG/325MG TABLET(HYDROCODONE/APAP) PO PRN ×2 (05:47→21:04)
[2022-08-12 06:10] LABS: HEMATOCRIT 45.6 % (36.0-47.0); HEMOGLOBIN 12.5 g/dl (12.0-15.5); MEAN CORPUSCULAR HEMOGLOBIN 23.4 pg (27.0-33.0); MEAN CORPUSCULAR HGB CONC 27.4 g/dl (32.0-36.5); MEAN CORPUSCULAR VOLUME 85.4 fl (80.0-96.0); PLATELET COUNT, AUTOMATED 229 10^3/uL (150-450); RED BLOOD COUNT 5.34 10^6/uL (4.00-5.40); WHITE BLOOD COUNT 10.7 10^3/uL (4.0-10.0)
[2022-08-12 07:14] LABS: ALT/SGPT 30 U/L (12-78); BLOOD UREA NITROGEN 20 MG/DL (7-18); CARBON DIOXIDE LEVEL 42 MEQ/L (21-32); CHLORIDE LEVEL 90 MEQ/L (98-107); CREATININE FOR GFR 0.74 MG/DL (0.55-1.30); GLOMERULAR FILTRATION RATE > 60.0 (>45); GLUCOSE, FASTING 139 MG/DL (70-100); MAGNESIUM LEVEL 2.1 MG/DL (1.8-2.4); POTASSIUM SERUM 3.4 MEQ/L (3.5-5.1); SODIUM LEVEL 137 MEQ/L (136-145)
[2022-08-12] MEDS: ADVAIR HFA 230/21MCG INHALER INH SCH ×2 (07:20→20:11)
[2022-08-12] MEDS ORDERED: POTASSIUM CHLORIDE 10MEQ SR TABLET PO ONE ×2 (08:15→16:00)
[2022-08-12] MEDS: HYDROCORTISONE 1% OINTMENT 30GM TOP SCH ×2 (08:50→21:05)
[2022-08-12] MEDS: VANICREAM MOISTURIZING SKIN CREAM 113GM TUBE TOP SCH ×2 (08:50→21:05)
[2022-08-12] MEDS: APIXABAN 5 MG TAB (ELIQUIS) PO SCH ×2 (08:50→20:51)
[2022-08-12] MEDS: INSULIN LISPRO (NovoLOG) PER UNIT SC SCH ×4 (08:50→21:00)
[2022-08-12] MEDS: ASPIRIN 81MG ENTERIC TABLET PO SCH (08:51)
[2022-08-12] MEDS: SERTRALINE HCL 25 MG TABLET PO SCH (08:51)
[2022-08-12] MEDS: BACTRIM 160MG/800MG DS TAB PO SCH (08:51)
[2022-08-12] MEDS: ATORVASTATIN 20 MG TAB PO SCH (08:51)
[2022-08-12] MEDS: MAGNESIUM OXIDE 400MG TAB (MAG-OX) PO SCH ×3 (08:51→20:51)
[2022-08-12] MEDS: GABAPENTIN 400MG CAP PO SCH ×3 (08:51→20:51)
[2022-08-12] MEDS: DIGOXIN 0.25 MG TAB PO SCH (08:52)
[2022-08-12] MEDS: METOPROLOL TART 50 MG TAB PO SCH ×2 (08:52→20:57)
[2022-08-12] MEDS: DOCUSATE SODIUM 100MG CAPSULE PO SCH ×2 (08:53→20:46)
[2022-08-12 14:00] VITALS: BP 129/76
[2022-08-12] MEDS: guaiFENesin SYRUP 200MG 10ML UDC PO PRN (22:26)
[2022-08-12] MEDS: IPRATROPIUM 0.02% SOLN 0.5MG 2.5ML NEB INH PRN (22:33)
[2022-08-12] MEDS: LEVALBUTEROL 1.25 MG/0.5 ML CONCENTRATE NEB INH PRN (22:33)
[2022-08-12 22:52] LABS: ABG BASE EXCESS 15.6 (-2.0-2.0); ABG HCO3 41.9 MEQ/L (22.0-26.0); ABG O2 SATURATION 86.5 % (95.0-99.0); ABG PARTIAL PRESSURE CO2 59.3 mmHg (35.0-45.0); ABG PARTIAL PRESSURE O2 52.4 mmHg (75.0-100.0); ABG STANDARD HCO3 39.2 MEQ/L (22.0-26.0); ABG TOTAL CO2 43.7 MEQ/L (23.0-31.0); ABG pH (ARTERIAL) 7.467 UNITS (7.350-7.450)
[2022-08-13] VITALS (7 sets, daily range): BP systolic 116–149; BP diastolic 62–79
[2022-08-13] MEDS: ACETAMINOPHEN TAB 650MG DOSE (2X325MG) PO PRN ×2 (02:25→13:34)
[2022-08-13] MEDS: IPRATROPIUM 0.5MG/ALBUTEROL 2.5MG INH SOL UD 3ML (DUONEB) NEB SCH ×4 (02:39→19:23)
[2022-08-13 06:04] LABS: VENOUS BASE EXCESS 18.2 (-2.0-2.0); VENOUS O2 SATURATION 98.4 % (60.0-80.0); VENOUS PARTIAL PRESSURE CO2 71.6 mmHg (38.0-50.0); VENOUS PH 7.426 UNITS (7.330-7.430); VENOUS STANDARD HCO3 42.3 MEQ/L; VENOUS TOTAL CO2 48.2 MEQ/L (24.0-28.0)
[2022-08-13 06:09] LABS: HEMATOCRIT 39.8 % (36.0-47.0); HEMOGLOBIN 10.8 g/dl (12.0-15.5); MEAN CORPUSCULAR HEMOGLOBIN 23.5 pg (27.0-33.0); MEAN CORPUSCULAR HGB CONC 27.1 g/dl (32.0-36.5); MEAN CORPUSCULAR VOLUME 86.7 fl (80.0-96.0); PLATELET COUNT, AUTOMATED 148 10^3/uL (150-450); RED BLOOD COUNT 4.59 10^6/uL (4.00-5.40); WHITE BLOOD COUNT 5.5 10^3/uL (4.0-10.0)
[2022-08-13 07:04] LABS: ALT/SGPT 28 U/L (12-78); BILIRUBIN,TOTAL 0.8 MG/DL (0.2-1.0); BLOOD UREA NITROGEN 14 MG/DL (7-18); CALCIUM LEVEL 8.3 MG/DL (8.8-10.2); CARBON DIOXIDE LEVEL 48 MEQ/L (21-32); CHLORIDE LEVEL 94 MEQ/L (98-107); CREATININE FOR GFR 0.65 MG/DL (0.55-1.30); GLOMERULAR FILTRATION RATE > 60.0 (>45); GLUCOSE, FASTING 86 MG/DL (70-100); POTASSIUM SERUM 4.2 MEQ/L (3.5-5.1); SODIUM LEVEL 138 MEQ/L (136-145)
[2022-08-13] MEDS: ADVAIR HFA 230/21MCG INHALER INH SCH ×2 (07:13→19:23)
[2022-08-13] MEDS: INSULIN LISPRO (NovoLOG) PER UNIT SC SCH ×4 (07:30→20:25)
[2022-08-13] MEDS: ASPIRIN 81MG ENTERIC TABLET PO SCH (08:47)
[2022-08-13] MEDS: MAGNESIUM OXIDE 400MG TAB (MAG-OX) PO SCH ×3 (08:47→20:34)
[2022-08-13] MEDS: APIXABAN 5 MG TAB (ELIQUIS) PO SCH ×2 (08:47→20:33)
[2022-08-13] MEDS: GABAPENTIN 400MG CAP PO SCH ×3 (08:47→20:33)
[2022-08-13] MEDS: ATORVASTATIN 20 MG TAB PO SCH (08:47)
[2022-08-13] MEDS: DIGOXIN 0.25 MG TAB PO SCH (08:48)
[2022-08-13] MEDS: SERTRALINE HCL 25 MG TABLET PO SCH (08:48)
[2022-08-13] MEDS: DOCUSATE SODIUM 100MG CAPSULE PO SCH ×2 (08:50→20:38)
[2022-08-13] MEDS: ANEXSIA, NORCO 7.5MG/325MG TABLET(HYDROCODONE/APAP) PO PRN ×2 (08:50→18:02)
[2022-08-13] MEDS: HYDROCORTISONE 1% OINTMENT 30GM TOP SCH ×2 (08:50→20:35)
[2022-08-13] MEDS: VANICREAM MOISTURIZING SKIN CREAM 113GM TUBE TOP SCH ×2 (08:50→20:34)
[2022-08-13] MEDS: METOPROLOL TART 50 MG TAB PO SCH ×2 (08:51→20:34)
[2022-08-13] MEDS: POTASSIUM CHLORIDE 10MEQ SR TABLET PO SCH ×3 (11:07→20:33)
[2022-08-13] MEDS: FUROSEMIDE 100MG/10ML VIAL (J1940) IV SCH ×2 (11:08→18:02)
[2022-08-13] MEDS ORDERED: NICOTINE POLACRILEX 2 MG GUM PO PRN (13:25)
[2022-08-13] MEDS: guaiFENesin SYRUP 200MG 10ML UDC PO PRN (13:34)
[2022-08-14] MEDS: LEVALBUTEROL 1.25 MG/0.5 ML CONCENTRATE NEB INH PRN (00:16)
[2022-08-14] MEDS: IPRATROPIUM 0.02% SOLN 0.5MG 2.5ML NEB INH PRN (00:17)
[2022-08-14] MEDS: ACETAMINOPHEN TAB 650MG DOSE (2X325MG) PO PRN ×2 (00:37→16:46)
[2022-08-14] MEDS: FUROSEMIDE 100MG/10ML VIAL (J1940) IV SCH (02:10)
[2022-08-14] MEDS: IPRATROPIUM 0.5MG/ALBUTEROL 2.5MG INH SOL UD 3ML (DUONEB) NEB SCH ×4 (03:20→19:41)
[2022-08-14 05:52] LABS: HEMATOCRIT 37.7 % (36.0-47.0); HEMOGLOBIN 10.5 g/dl (12.0-15.5); MEAN CORPUSCULAR HEMOGLOBIN 23.6 pg (27.0-33.0); MEAN CORPUSCULAR HGB CONC 27.9 g/dl (32.0-36.5); MEAN CORPUSCULAR VOLUME 84.7 fl (80.0-96.0); PLATELET COUNT, AUTOMATED 129 10^3/uL (150-450); RED BLOOD COUNT 4.45 10^6/uL (4.00-5.40); WHITE BLOOD COUNT 5.3 10^3/uL (4.0-10.0)
[2022-08-14 06:00] VITALS: BP 149/110
[2022-08-14 06:30] LABS: ALBUMIN 2.8 GM/DL (3.2-5.2); ALT/SGPT 30 U/L (12-78); BILIRUBIN,TOTAL 0.7 MG/DL (0.2-1.0); BLOOD UREA NITROGEN 18 MG/DL (7-18); CALCIUM LEVEL 8.5 MG/DL (8.8-10.2); CARBON DIOXIDE LEVEL 47 MEQ/L (21-32); CHLORIDE LEVEL 91 MEQ/L (98-107); CREATININE FOR GFR 0.71 MG/DL (0.55-1.30); GLOMERULAR FILTRATION RATE > 60.0 (>45); GLUCOSE, FASTING 92 MG/DL (70-100); POTASSIUM SERUM 3.4 MEQ/L (3.5-5.1); SODIUM LEVEL 138 MEQ/L (136-145); TOTAL PROTEIN 6.4 GM/DL (6.4-8.2)
[2022-08-14] MEDS: ADVAIR HFA 230/21MCG INHALER INH SCH ×2 (07:18→19:41)
[2022-08-14] MEDS: INSULIN LISPRO (NovoLOG) PER UNIT SC SCH ×4 (07:30→21:00)
[2022-08-14] MEDS: ATORVASTATIN 20 MG TAB PO SCH (09:49)
[2022-08-14] MEDS: MAGNESIUM OXIDE 400MG TAB (MAG-OX) PO SCH ×3 (09:50→21:02)
[2022-08-14] MEDS: DOCUSATE SODIUM 100MG CAPSULE PO SCH ×2 (09:50→21:02)
[2022-08-14] MEDS: METOPROLOL TART 50 MG TAB PO SCH ×2 (09:55→21:01)
[2022-08-14] MEDS: POTASSIUM CHLORIDE 10MEQ SR TABLET PO SCH ×3 (09:56→21:02)
[2022-08-14] MEDS: SERTRALINE HCL 25 MG TABLET PO SCH (09:57)
[2022-08-14] MEDS: VANICREAM MOISTURIZING SKIN CREAM 113GM TUBE TOP SCH ×2 (09:57→21:03)
[2022-08-14] MEDS: GABAPENTIN 400MG CAP PO SCH ×3 (09:57→21:02)
[2022-08-14] MEDS: ASPIRIN 81MG ENTERIC TABLET PO SCH (09:58)
[2022-08-14] MEDS: TORSEMIDE 20 MG TAB PO SCH ×2 (09:58→16:47)
[2022-08-14] MEDS: DIGOXIN 0.25 MG TAB PO SCH (09:58)
[2022-08-14] MEDS: APIXABAN 5 MG TAB (ELIQUIS) PO SCH ×2 (09:58→21:02)
[2022-08-14] MEDS: HYDROCORTISONE 1% OINTMENT 30GM TOP SCH ×2 (09:59→21:03)
[2022-08-14] MEDS: ANEXSIA, NORCO 7.5MG/325MG TABLET(HYDROCODONE/APAP) PO PRN ×2 (10:07→17:42)
[2022-08-14 14:00] VITALS: BP 134/90
[2022-08-14] MEDS: guaiFENesin SYRUP 200MG 10ML UDC PO PRN (21:02)
[2022-08-14 22:00] VITALS: BP 111/73
[2022-08-15] MEDS: IPRATROPIUM 0.5MG/ALBUTEROL 2.5MG INH SOL UD 3ML (DUONEB) NEB SCH ×3 (03:00→14:26)
[2022-08-15] MEDS: LEVALBUTEROL 1.25 MG/0.5 ML CONCENTRATE NEB INH PRN (04:17)
[2022-08-15 06:00] VITALS: BP 144/94
[2022-08-15 06:16] LABS: HEMATOCRIT 39.1 % (36.0-47.0); HEMOGLOBIN 10.7 g/dl (12.0-15.5); MEAN CORPUSCULAR HEMOGLOBIN 23.4 pg (27.0-33.0); MEAN CORPUSCULAR HGB CONC 27.4 g/dl (32.0-36.5); MEAN CORPUSCULAR VOLUME 85.4 fl (80.0-96.0); PLATELET COUNT, AUTOMATED 123 10^3/uL (150-450); RED BLOOD COUNT 4.58 10^6/uL (4.00-5.40); WHITE BLOOD COUNT 5.2 10^3/uL (4.0-10.0)
[2022-08-15 06:56] LABS: ALBUMIN 2.7 GM/DL (3.2-5.2); ALT/SGPT 29 U/L (12-78); BILIRUBIN,TOTAL 0.6 MG/DL (0.2-1.0); BLOOD UREA NITROGEN 22 MG/DL (7-18); CALCIUM LEVEL 8.2 MG/DL (8.8-10.2); CARBON DIOXIDE LEVEL 44 MEQ/L (21-32); CHLORIDE LEVEL 93 MEQ/L (98-107); CREATININE FOR GFR 0.72 MG/DL (0.55-1.30); GLOMERULAR FILTRATION RATE > 60.0 (>45); GLUCOSE, FASTING 103 MG/DL (70-100); POTASSIUM SERUM 4.1 MEQ/L (3.5-5.1); SODIUM LEVEL 137 MEQ/L (136-145); TOTAL PROTEIN 5.7 GM/DL (6.4-8.2)
[2022-08-15] MEDS: ADVAIR HFA 230/21MCG INHALER INH SCH ×2 (07:43→20:51)
[2022-08-15] MEDS: ASPIRIN 81MG ENTERIC TABLET PO SCH (08:28)
[2022-08-15] MEDS: ATORVASTATIN 20 MG TAB PO SCH (08:28)
[2022-08-15] MEDS: APIXABAN 5 MG TAB (ELIQUIS) PO SCH ×2 (08:28→20:20)
[2022-08-15] MEDS: GABAPENTIN 400MG CAP PO SCH ×3 (08:28→20:20)
[2022-08-15] MEDS: DOCUSATE SODIUM 100MG CAPSULE PO SCH ×2 (08:28→20:21)
[2022-08-15] MEDS: DIGOXIN 0.25 MG TAB PO SCH (08:33)
[2022-08-15] MEDS: MAGNESIUM OXIDE 400MG TAB (MAG-OX) PO SCH ×3 (08:33→20:20)
[2022-08-15] MEDS: TORSEMIDE 20 MG TAB PO SCH ×2 (08:33→16:14)
[2022-08-15] MEDS: SERTRALINE HCL 25 MG TABLET PO SCH (08:33)
[2022-08-15] MEDS: ANEXSIA, NORCO 7.5MG/325MG TABLET(HYDROCODONE/APAP) PO PRN ×2 (08:33→16:14)
[2022-08-15] MEDS: POTASSIUM CHLORIDE 10MEQ SR TABLET PO SCH ×3 (08:34→20:21)
[2022-08-15] MEDS: METOPROLOL TART 50 MG TAB PO SCH ×2 (08:34→20:21)
[2022-08-15] MEDS: VANICREAM MOISTURIZING SKIN CREAM 113GM TUBE TOP SCH ×2 (08:35→20:22)
[2022-08-15] MEDS: INSULIN LISPRO (NovoLOG) PER UNIT SC SCH ×4 (08:36→20:23)
[2022-08-15] MEDS: HYDROCORTISONE 1% OINTMENT 30GM TOP SCH ×2 (08:36→20:22)
[2022-08-15 14:00] VITALS: BP 155/93
[2022-08-15] MEDS ORDERED: COMBIVENT RESPIMAT 100-20MCG INHALER 4GM INH PRN (19:00)
[2022-08-15 19:54] VITALS: BP 152/94
[2022-08-15] MEDS: COMBIVENT RESPIMAT 100-20MCG INHALER 4GM INH SCH (20:00)
[2022-08-15] MEDS: ACETAMINOPHEN TAB 650MG DOSE (2X325MG) PO PRN (20:20)
[2022-08-15] MEDS: guaiFENesin SYRUP 200MG 10ML UDC PO PRN (20:22)
[2022-08-16] MEDS: COMBIVENT RESPIMAT 100-20MCG INHALER 4GM INH SCH ×4 (03:02→20:00)
[2022-08-16 05:30] VITALS: BP 156/98
[2022-08-16 06:26] LABS: INR 1.06; PROTHROMBIN TIME 14.2 SECONDS (12.7-14.5)
[2022-08-16 06:27] LABS: PARTIAL THROMBOPLASTIN TIME 36.2 SECONDS (25.9-37.0)
[2022-08-16 06:29] LABS: D-DIMER QUANT 922.75 ng/ml (<500)
[2022-08-16 06:47] LABS: ALBUMIN 2.8 GM/DL (3.2-5.2); BILIRUBIN,DIRECT 0.2 MG/DL (0.0-0.2); BILIRUBIN,TOTAL 0.5 MG/DL (0.2-1.0); C REACTIVE PROTEIN QUANTITATIV 0.95 MG/DL (0.00-0.30)
[2022-08-16] MEDS: ADVAIR HFA 230/21MCG INHALER INH SCH ×2 (07:31→20:40)
[2022-08-16] MEDS: DOCUSATE SODIUM 100MG CAPSULE PO SCH ×2 (09:00→20:05)
[2022-08-16] MEDS: METOPROLOL TART 50 MG TAB PO SCH ×2 (10:10→20:05)
[2022-08-16] MEDS: ASPIRIN 81MG ENTERIC TABLET PO SCH (10:11)
[2022-08-16] MEDS: POTASSIUM CHLORIDE 10MEQ SR TABLET PO SCH ×3 (10:11→20:05)
[2022-08-16] MEDS: TORSEMIDE 20 MG TAB PO SCH ×2 (10:11→18:08)
[2022-08-16] MEDS: ATORVASTATIN 20 MG TAB PO SCH (10:11)
[2022-08-16] MEDS: MAGNESIUM OXIDE 400MG TAB (MAG-OX) PO SCH ×3 (10:11→20:06)
[2022-08-16] MEDS: DIGOXIN 0.25 MG TAB PO SCH (10:12)
[2022-08-16] MEDS: SERTRALINE HCL 25 MG TABLET PO SCH (10:12)
[2022-08-16] MEDS: ANEXSIA, NORCO 7.5MG/325MG TABLET(HYDROCODONE/APAP) PO PRN ×2 (10:12→18:09)
[2022-08-16] MEDS: APIXABAN 5 MG TAB (ELIQUIS) PO SCH ×2 (10:12→20:06)
[2022-08-16] MEDS: HYDROCORTISONE 1% OINTMENT 30GM TOP SCH ×2 (10:14→20:06)
[2022-08-16] MEDS: VANICREAM MOISTURIZING SKIN CREAM 113GM TUBE TOP SCH ×2 (10:14→20:06)
[2022-08-16] MEDS: INSULIN LISPRO (NovoLOG) PER UNIT SC SCH ×4 (10:15→20:06)
[2022-08-16] MEDS: guaiFENesin SYRUP 200MG 10ML UDC PO PRN ×2 (10:16→18:08)
[2022-08-16] MEDS: GABAPENTIN 400MG CAP PO SCH ×3 (10:16→20:05)
[2022-08-16] MEDS ORDERED: COVID-19 VAC, BV (MODERNA)/PF 50 MCG/0.5 ML VIAL (EUA) IM.IMMUN ONE (11:00)
[2022-08-16 19:58] VITALS: BP 142/81
[2022-08-17 06:00] VITALS: BP 150/93
[2022-08-17] MEDS: ADVAIR HFA 230/21MCG INHALER INH SCH ×2 (07:50→20:40)
[2022-08-17] MEDS: COMBIVENT RESPIMAT 100-20MCG INHALER 4GM INH SCH ×3 (07:50→20:00)
[2022-08-17] MEDS: INSULIN LISPRO (NovoLOG) PER UNIT SC SCH ×4 (08:30→21:00)
[2022-08-17] MEDS: ATORVASTATIN 20 MG TAB PO SCH (08:30)
[2022-08-17] MEDS: MAGNESIUM OXIDE 400MG TAB (MAG-OX) PO SCH ×3 (08:31→21:10)
[2022-08-17] MEDS: SERTRALINE HCL 25 MG TABLET PO SCH (08:32)
[2022-08-17] MEDS: GABAPENTIN 400MG CAP PO SCH ×3 (08:32→21:10)
[2022-08-17] MEDS: POTASSIUM CHLORIDE 10MEQ SR TABLET PO SCH ×3 (08:32→21:10)
[2022-08-17] MEDS: DIGOXIN 0.25 MG TAB PO SCH (08:34)
[2022-08-17] MEDS: APIXABAN 5 MG TAB (ELIQUIS) PO SCH ×2 (08:34→21:07)
[2022-08-17] MEDS: ANEXSIA, NORCO 7.5MG/325MG TABLET(HYDROCODONE/APAP) PO PRN ×2 (08:34→18:31)
[2022-08-17] MEDS: ASPIRIN 81MG ENTERIC TABLET PO SCH (08:34)
[2022-08-17] MEDS: DOCUSATE SODIUM 100MG CAPSULE PO SCH ×2 (08:34→21:00)
[2022-08-17] MEDS: guaiFENesin SYRUP 200MG 10ML UDC PO PRN (08:34)
[2022-08-17] MEDS: TORSEMIDE 20 MG TAB PO SCH ×2 (08:35→16:41)
[2022-08-17] MEDS: METOPROLOL TART 50 MG TAB PO SCH ×2 (08:47→21:12)
[2022-08-17] MEDS: NYSTATIN 100,000 UNITS/GM TOPICAL PWD 15 GM TOP PRN (08:55)
[2022-08-17] MEDS: VANICREAM MOISTURIZING SKIN CREAM 113GM TUBE TOP SCH ×2 (08:55→21:11)
[2022-08-17] MEDS: HYDROCORTISONE 1% OINTMENT 30GM TOP SCH ×2 (08:57→21:11)
[2022-08-17] MEDS ORDERED: MORPHINE 2 MG/ML 1ML VIAL IV ONE (23:10)
[2022-08-18] MEDS ORDERED: PERCOCET 5MG/325MG TAB PO ONE ×2 (00:30→21:45)
[2022-08-18] MEDS: COMBIVENT RESPIMAT 100-20MCG INHALER 4GM INH SCH ×4 (02:00→21:30)
[2022-08-18 05:30] VITALS: BP 127/97
[2022-08-18 06:44] LABS: BLOOD UREA NITROGEN 20 MG/DL (7-18); CALCIUM LEVEL 8.5 MG/DL (8.8-10.2); CARBON DIOXIDE LEVEL 40 MEQ/L (21-32); CHLORIDE LEVEL 98 MEQ/L (98-107); CREATININE FOR GFR 0.64 MG/DL (0.55-1.30); GLOMERULAR FILTRATION RATE > 60.0 (>45); GLUCOSE, FASTING 100 MG/DL (70-100); POTASSIUM SERUM 4.1 MEQ/L (3.5-5.1); SODIUM LEVEL 141 MEQ/L (136-145)
[2022-08-18] MEDS: INSULIN LISPRO (NovoLOG) PER UNIT SC SCH ×4 (07:30→21:00)
[2022-08-18] MEDS: ADVAIR HFA 230/21MCG INHALER INH SCH ×2 (07:38→21:00)
[2022-08-18] MEDS: POTASSIUM CHLORIDE 10MEQ SR TABLET PO SCH (08:17)
[2022-08-18] MEDS: APIXABAN 5 MG TAB (ELIQUIS) PO SCH ×2 (08:17→21:10)
[2022-08-18] MEDS: ASPIRIN 81MG ENTERIC TABLET PO SCH (08:18)
[2022-08-18] MEDS: DOCUSATE SODIUM 100MG CAPSULE PO SCH ×2 (08:18→21:10)
[2022-08-18] MEDS: METOPROLOL TART 50 MG TAB PO SCH ×2 (08:19→21:38)
[2022-08-18] MEDS: MAGNESIUM OXIDE 400MG TAB (MAG-OX) PO SCH ×3 (08:19→21:10)
[2022-08-18] MEDS: TORSEMIDE 20 MG TAB PO SCH ×2 (08:20→16:29)
[2022-08-18] MEDS: SERTRALINE HCL 25 MG TABLET PO SCH (08:20)
[2022-08-18] MEDS: ATORVASTATIN 20 MG TAB PO SCH (08:20)
[2022-08-18] MEDS: ANEXSIA, NORCO 7.5MG/325MG TABLET(HYDROCODONE/APAP) PO PRN ×2 (08:21→17:43)
[2022-08-18] MEDS: DIGOXIN 0.25 MG TAB PO SCH (08:33)
[2022-08-18] MEDS: VANICREAM MOISTURIZING SKIN CREAM 113GM TUBE TOP SCH ×2 (08:33→21:20)
[2022-08-18] MEDS: GABAPENTIN 400MG CAP PO SCH ×3 (08:33→21:09)
[2022-08-18] MEDS: NYSTATIN 100,000 UNITS/GM TOPICAL PWD 15 GM TOP PRN (08:34)
[2022-08-18] MEDS: HYDROCORTISONE 1% OINTMENT 30GM TOP SCH ×2 (08:34→21:19)
[2022-08-18] MEDS: guaiFENesin SYRUP 200MG 10ML UDC PO PRN ×2 (11:51→21:09)
[2022-08-19] MEDS: COMBIVENT RESPIMAT 100-20MCG INHALER 4GM INH SCH ×3 (02:00→14:05)
[2022-08-19 06:00] VITALS: BP 140/91
[2022-08-19] MEDS: ADVAIR HFA 230/21MCG INHALER INH SCH (07:59)
[2022-08-19] MEDS: INSULIN LISPRO (NovoLOG) PER UNIT SC SCH ×2 (09:23→13:53)
[2022-08-19] MEDS: APIXABAN 5 MG TAB (ELIQUIS) PO SCH (09:23)
[2022-08-19] MEDS: TORSEMIDE 20 MG TAB PO SCH (09:23)
[2022-08-19] MEDS: SERTRALINE HCL 25 MG TABLET PO SCH (09:23)
[2022-08-19] MEDS: DOCUSATE SODIUM 100MG CAPSULE PO SCH (09:23)
[2022-08-19] MEDS: POTASSIUM CHLORIDE 10MEQ SR TABLET PO SCH (09:23)
[2022-08-19] MEDS: MAGNESIUM OXIDE 400MG TAB (MAG-OX) PO SCH (09:23)
[2022-08-19 09:24] VITALS: BP 140/91
[2022-08-19] MEDS: ASPIRIN 81MG ENTERIC TABLET PO SCH (09:24)
[2022-08-19] MEDS: ANEXSIA, NORCO 7.5MG/325MG TABLET(HYDROCODONE/APAP) PO PRN (09:24)
[2022-08-19] MEDS: METOPROLOL TART 50 MG TAB PO SCH (09:24)
[2022-08-19] MEDS: ATORVASTATIN 20 MG TAB PO SCH (09:24)
[2022-08-19] MEDS: GABAPENTIN 400MG CAP PO SCH (09:24)
[2022-08-19] MEDS: HYDROCORTISONE 1% OINTMENT 30GM TOP SCH (09:25)
[2022-08-19] MEDS: DIGOXIN 0.25 MG TAB PO SCH (09:25)
[2022-08-19] MEDS: VANICREAM MOISTURIZING SKIN CREAM 113GM TUBE TOP SCH (09:25)
[2022-08-19] MEDS ORDERED: ASPI-551 PO (15:34)
[2022-08-19] MEDS ORDERED: TORS20TA2 PO (15:34)
[2022-08-19] MEDS ORDERED: ELIQ5TAB PO (15:34)
[2022-08-19] MEDS ORDERED: FLUT1INH3 INH (15:34)
[2022-08-19] MEDS ORDERED: ALBU2.5V10 NEB (15:34)
[2022-08-19] MEDS ORDERED: ALBU8.5H INH (15:34)
[2022-08-19] MEDS ORDERED: GUAI100S51 PO (15:34)
== END 2022-08-19 16:25 | disposition home or self-care (01) | DRG 201 ==
LOC: EDBD 21:27 → M ED 21:27 → M ED INP 08-05 01:05 → M PCU 08-05 03:06 → M MSPAV 08-09 13:10
PROVIDERS: ADMIT Internal Medicine; ATTEND Family Medicine
PROC: B246ZZZ Ultrasonography of Right and Left Heart (ICD-10-PCS; principal; 2022-08-07)
DX: I48.91 Unspecified atrial fibrillation (principal); I21.A1 Myocardial infarction type 2; U07.1 COVID-19; G93.41 Metabolic encephalopathy; I50.33 Acute on chronic diastolic (congestive) heart failure; J96.11 Chronic respiratory failure with hypoxia; N17.9 Acute kidney failure, unspecified; E87.3 Alkalosis; E87.2 Acidosis; J96.12 Chronic respiratory failure with hypercapnia; I27.81 Cor pulmonale (chronic); I27.29 Other secondary pulmonary hypertension; Z99.81 Dependence on supplemental oxygen; E66.01 Morbid (severe) obesity due to excess calories; E83.42 Hypomagnesemia; Z68.43 Body mass index [BMI] 50.0-59.9, adult; J44.9 Chronic obstructive pulmonary disease, unspecified; E11.9 Type 2 diabetes mellitus without complications; K92.1 Melena; D64.9 Anemia, unspecified; L03.90 Cellulitis, unspecified; Z90.49 Acquired absence of other specified parts of digestive tract; Z90.79 Acquired absence of other genital organ(s); Z79.01 Long term (current) use of anticoagulants; Z79.84 Long term (current) use of oral hypoglycemic drugs; Z79.899 Other long term (current) drug therapy; Z88.0 Allergy status to penicillin; I34.0 Nonrheumatic mitral (valve) insufficiency; E87.6 Hypokalemia; Z72.3 Lack of physical exercise

== ENCOUNTER 2022-08-21 15:01 | Emergency (ER) | payer OTHER ==
[~2022-08-21] VITALS: Ht 177.8 cm; Wt 135.4 kg
[~2022-08-21 15:01] MED LIST changes: +ASPI-551 PO; +GUAI100S51 PO
[2022-08-21] MEDS ORDERED: KETOROLAC 30 MG/ML 1ML VIAL IV ONE (15:50)
[2022-08-21] MEDS ORDERED: IPRATROPIUM 0.5MG/ALBUTEROL 2.5MG INH SOL UD 3ML (DUONEB) NEB ONE (15:50)
[2022-08-21] MEDS ORDERED: TORSEMIDE 20 MG TAB PO STA (15:54)
[2022-08-21 16:09] VITALS: O2SAT 92
[2022-08-21 16:21] LABS: ABG BASE EXCESS 4.6 (-2.0-2.0); ABG HCO3 29.6 MEQ/L (22.0-26.0); ABG O2 SATURATION 99.3 % (95.0-99.0); ABG STANDARD HCO3 28.6 MEQ/L (22.0-26.0); ABG TOTAL CO2 31.1 MEQ/L (23.0-31.0); ABG pH (ARTERIAL) 7.427 UNITS (7.350-7.450)
[2022-08-21 16:26] LABS: BASO % 0.3 % (0.0-1.0); EOS % 0.6 % (0.0-3.0); HEMATOCRIT 40.1 % (36.0-47.0); HEMOGLOBIN 11.1 g/dl (12.0-15.5); LYMPH # 0.8 10^3/uL (1.5-5.0); LYMPH % 13.6 % (24.0-44.0); MEAN CORPUSCULAR HEMOGLOBIN 23.6 pg (27.0-33.0); MEAN CORPUSCULAR HGB CONC 27.7 g/dl (32.0-36.5); MEAN CORPUSCULAR VOLUME 85.1 fl (80.0-96.0); MONO # 0.2 10^3/uL (0.0-0.8); MONO % 2.6 % (2.0-8.0); NEUTROPHILS # 5.1 10^3/uL (1.5-8.5); NEUTROPHILS % 82.6 % (36.0-66.0); PLATELET COUNT, AUTOMATED 218 10^3/uL (150-450); RED BLOOD COUNT 4.71 10^6/uL (4.00-5.40); WHITE BLOOD COUNT 6.2 10^3/uL (4.0-10.0)
[2022-08-21 17:01] LABS: ALBUMIN 2.8 GM/DL (3.2-5.2); ALT/SGPT 23 U/L (12-78); BILIRUBIN,DIRECT 0.4 MG/DL (0.0-0.2); BILIRUBIN,TOTAL 0.9 MG/DL (0.2-1.0); BLOOD UREA NITROGEN 19 MG/DL (7-18); CALCIUM LEVEL 8.3 MG/DL (8.8-10.2); CARBON DIOXIDE LEVEL 36 MEQ/L (21-32); CHLORIDE LEVEL 99 MEQ/L (98-107); CREATININE FOR GFR 0.69 MG/DL (0.55-1.30); GLOMERULAR FILTRATION RATE > 60.0 (>45); GLUCOSE, FASTING 110 MG/DL (70-100); NT-PRO BNP 5268 PG/ML (<125); POTASSIUM SERUM 3.3 MEQ/L (3.5-5.1); SODIUM LEVEL 142 MEQ/L (136-145)
[2022-08-21 17:06] LABS: CK-MB VALUE MASS 1.5 NG/ML (<3.6); MB/CK RELATIVE INDEX 6.25 (< OR =4)
[2022-08-21] MEDS ORDERED: LABETALOL 100MG/20ML VIAL IV STA (17:22)
[2022-08-21 17:51] VITALS: BP 155/84
== END 2022-08-21 18:07 | disposition home or self-care (01) ==
LOC: EDBD 15:01 → M ED 15:01
DX: I50.9 Heart failure, unspecified (principal); I48.91 Unspecified atrial fibrillation; I45.10 Unspecified right bundle-branch block; J44.9 Chronic obstructive pulmonary disease, unspecified; F17.200 Nicotine dependence, unspecified, uncomplicated; Z79.82 Long term (current) use of aspirin; Z79.01 Long term (current) use of anticoagulants; Z79.84 Long term (current) use of oral hypoglycemic drugs; Z79.899 Other long term (current) drug therapy; Z99.81 Dependence on supplemental oxygen; Z88.0 Allergy status to penicillin
CPT/HCPCS: 36600; 71045; 80048; 80076; 82550; 82553; 82803; 83605; 83880; 85025; 93005; 93041; 94640; 94760; 96374; 99285; J1885

== ENCOUNTER → 2022-09-11 | Outpatient (CLI) | payer OTHER | LOC: M PAIN 14:45 | PROVIDERS: ATTEND Nurse Practitioner Family | DX: M79.2 Neuralgia and neuritis, unspecified (principal); M51.16 Intervertebral disc disorders with radiculopathy, lumbar region; G89.29 Other chronic pain; E11.9 Type 2 diabetes mellitus without complications; I10 Essential (primary) hypertension; J44.9 Chronic obstructive pulmonary disease, unspecified; K21.9 Gastro-esophageal reflux disease without esophagitis; F17.210 Nicotine dependence, cigarettes, uncomplicated; Z86.14 Personal history of Methicillin resistant Staphylococcus aureus infection; Z86.59 Personal history of other mental and behavioral disorders; Z88.0 Allergy status to penicillin; Z79.01 Long term (current) use of anticoagulants; Z79.51 Long term (current) use of inhaled steroids; Z79.84 Long term (current) use of oral hypoglycemic drugs; Z79.899 Other long term (current) drug therapy ==

== ENCOUNTER → 2022-10-04 | Outpatient (CLI) | payer OTHER | LOC: M PAIN 11:45 | PROVIDERS: ATTEND Nurse Practitioner Family | DX: Z79.891 Long term (current) use of opiate analgesic (principal) ==

== ENCOUNTER 2022-11-01 06:33 | Inpatient (IN) | payer OTHER ==
[~2022-11-01] VITALS: Ht 177.8 cm; Wt 133.5 kg
[2022-11-01 07:27] LABS: BASO % 0.5 % (0.0-1.0); EOS % 0.3 % (0.0-3.0); HEMATOCRIT 44.9 % (36.0-47.0); HEMOGLOBIN 12.5 g/dl (12.0-15.5); LYMPH # 1.6 10^3/uL (1.5-5.0); LYMPH % 20.9 % (24.0-44.0); MEAN CORPUSCULAR HEMOGLOBIN 23.1 pg (27.0-33.0); MEAN CORPUSCULAR HGB CONC 27.8 g/dl (32.0-36.5); MEAN CORPUSCULAR VOLUME 82.8 fl (80.0-96.0); MONO # 0.8 10^3/uL (0.0-0.8); MONO % 10.7 % (2.0-8.0); NEUTROPHILS % 67.2 % (36.0-66.0); PLATELET COUNT, AUTOMATED 233 10^3/uL (150-450); RED BLOOD COUNT 5.42 10^6/uL (4.00-5.40); WHITE BLOOD COUNT 7.5 10^3/uL (4.0-10.0)
[2022-11-01 07:52] LABS: ALBUMIN 3.3 G/DL (3.2-5.2); ALKALINE PHOSPHATASE 95 U/L (46-116); ALT/SGPT 15 U/L (7.0-40); AST/SGOT 22 U/L (<34); BILIRUBIN,DIRECT 0.4 MG/DL (<0.4); BILIRUBIN,TOTAL 0.7 MG/DL (0.3-1.2); BLOOD UREA NITROGEN 20 MG/DL (9-23); CALCIUM LEVEL 8.1 MG/DL (8.3-10.6); CARBON DIOXIDE LEVEL 27 MMOL/L (20-31); CHLORIDE LEVEL 103 MMOL/L (98-107); CK-MB VALUE MASS 1.2 NG/ML (<3.6); GLOMERULAR FILTRATION RATE > 60.0 (>45); GLUCOSE, FASTING 96 MG/DL (74-106); POTASSIUM SERUM 4.3 MMOL/L (3.5-5.1); SODIUM LEVEL 139 MMOL/L (136-145); TOTAL PROTEIN 6.3 G/DL (5.7-8.2)
[2022-11-01 07:54] LABS: THYROID STIMULATING HORMONE 3.307 uIU/ML (0.55-4.78)
[2022-11-01 07:55] LABS: FREE T4 1.09 NG/DL (0.89-1.76)
[2022-11-01] MEDS: TIOTROPIUM INHALER/CAPSULE (SPIRIVA) INH SCH (08:00)
[2022-11-01] MEDS ORDERED: GABA-283 PO (09:04)
[2022-11-01] MEDS ORDERED: TORS20TA2 PO (09:04)
[2022-11-01] MEDS ORDERED: INCR1INH INH (09:04)
[2022-11-01] MEDS ORDERED: AIRD1INH3 INH (09:04)
[2022-11-01] MEDS ORDERED: MM S100C PO (09:04)
[2022-11-01] MEDS ORDERED: ISOVUE-370 76% 100ML VIAL As Ordered ONE (09:07)
[2022-11-01 09:12] LABS: CPK CREATINE PHOSPHOKINASE 60 U/L (34-145)
[2022-11-01] MEDS ORDERED: ECOT81TA5 PO (09:27)
[2022-11-01] MEDS ORDERED: ELIQ5TAB PO (09:27)
[2022-11-01] MEDS ORDERED: ALBU2.5V10 NEB (09:27)
[2022-11-01] MEDS ORDERED: GUAI100L6 PO (09:27)
[2022-11-01] MEDS ORDERED: ALBU8.5H INH (09:28)
[2022-11-01] MEDS ORDERED: HOME MED LIST COMPLETE! XX SCH (09:35)
[2022-11-01] MEDS ORDERED: FUROSEMIDE 100MG/10ML VIAL (J1940) IV ONE (10:00)
[2022-11-01] MEDS: INSULIN LISPRO (NovoLOG) PER UNIT SC SCH ×3 (12:00→20:18)
[2022-11-01 12:32] LABS: ABG BASE EXCESS 1.4 (-2.0-2.0); ABG HCO3 28.7 MEQ/L (22.0-26.0); ABG O2 SATURATION 96.8 % (95.0-99.0); ABG PARTIAL PRESSURE CO2 56.6 mmHg (35.0-45.0); ABG PARTIAL PRESSURE O2 93.4 mmHg (75.0-100.0); ABG STANDARD HCO3 25.7 MEQ/L (22.0-26.0); ABG TOTAL CO2 30.4 MEQ/L (23.0-31.0); ABG pH (ARTERIAL) 7.323 UNITS (7.350-7.450)
[2022-11-01] MEDS ORDERED: GLUCAGON INJ 1MG VIAL SC PRN (13:30)
[2022-11-01] MEDS ORDERED: GLUCOSE 4GM CHEW TABLET PO PRN (13:30)
[2022-11-01] MEDS ORDERED: DEXTROSE 50% 50 ML SYRINGE IV PRN (13:30)
[2022-11-01] MEDS: SERTRALINE HCL 25 MG TABLET PO SCH (14:22)
[2022-11-01] MEDS: GABAPENTIN 400MG CAP PO SCH ×2 (14:22→20:18)
[2022-11-01] MEDS: **hydrALAZINE HCL** 25 MG TAB PO SCH ×2 (14:22→18:00)
[2022-11-01] MEDS: ATORVASTATIN 20 MG TAB PO SCH (14:23)
[2022-11-01] MEDS: ALBUTEROL SULFATE 2.5 MG/0.5 ML INH NEB SOLN NEB SCH ×2 (14:36→21:02)
[2022-11-01] MEDS ORDERED: FUROSEMIDE 100MG/10ML VIAL (J1940) IV SCH (17:00)
[2022-11-01 17:55] VITALS: BP 139/92
[2022-11-01 20:00] VITALS: BP 146/91
[2022-11-01] MEDS: APIXABAN 5 MG TAB (ELIQUIS) PO SCH (20:17)
[2022-11-01] MEDS: METOPROLOL TART 50 MG TAB PO SCH (20:18)
[2022-11-01] MEDS ORDERED: LIDOCAINE 5% (LIDODERM) PATCH TD ONE (21:00)
[2022-11-01] MEDS: ADVAIR HFA 230/21MCG INHALER INH SCH (21:03)
[2022-11-01 21:28] LABS: DIGOXIN LEVEL 1.4 NG/ML (0.8-2.0)
[2022-11-02] MEDS: ALBUTEROL SULFATE 2.5 MG/0.5 ML INH NEB SOLN NEB SCH ×6 (00:46→19:52)
[2022-11-02 04:00] VITALS: BP 137/72
[2022-11-02] MEDS: **hydrALAZINE HCL** 25 MG TAB PO SCH ×4 (05:02→17:29)
[2022-11-02 06:01] LABS: BASO % 0.3 % (0.0-1.0); EOS # 0.1 10^3/uL (0.0-0.5); EOS % 0.7 % (0.0-3.0); HEMATOCRIT 41.1 % (36.0-47.0); HEMOGLOBIN 11.3 g/dl (12.0-15.5); LYMPH # 1.9 10^3/uL (1.5-5.0); LYMPH % 25.5 % (24.0-44.0); MEAN CORPUSCULAR HEMOGLOBIN 23.1 pg (27.0-33.0); MEAN CORPUSCULAR HGB CONC 27.5 g/dl (32.0-36.5); MEAN CORPUSCULAR VOLUME 83.9 fl (80.0-96.0); MONO # 0.8 10^3/uL (0.0-0.8); MONO % 11.1 % (2.0-8.0); NEUTROPHILS # 4.7 10^3/uL (1.5-8.5); PLATELET COUNT, AUTOMATED 203 10^3/uL (150-450); WHITE BLOOD COUNT 7.5 10^3/uL (4.0-10.0)
[2022-11-02 06:15] LABS: INR 1.45; PROTHROMBIN TIME 17.9 SECONDS (12.5-14.5)
[2022-11-02 06:16] LABS: PARTIAL THROMBOPLASTIN TIME 36.5 SECONDS (24.8-34.2)
[2022-11-02 06:25] LABS: BLOOD UREA NITROGEN 16 MG/DL (9-23); CALCIUM LEVEL 8.3 MG/DL (8.3-10.6); CARBON DIOXIDE LEVEL 33 MMOL/L (20-31); CHLORIDE LEVEL 103 MMOL/L (98-107); CREATININE FOR GFR 0.95 MG/DL (0.55-1.30); GLOMERULAR FILTRATION RATE > 60.0 (>45); GLUCOSE, FASTING 143 MG/DL (74-106); SODIUM LEVEL 143 MMOL/L (136-145)
[2022-11-02 07:26] VITALS: O2SAT 91
[2022-11-02] MEDS: ADVAIR HFA 230/21MCG INHALER INH SCH ×2 (07:26→19:52)
[2022-11-02] MEDS: TIOTROPIUM INHALER/CAPSULE (SPIRIVA) INH SCH (07:26)
[2022-11-02 07:56] VITALS: BP 99/70
[2022-11-02] MEDS: METOPROLOL TART 50 MG TAB PO SCH ×2 (08:07→20:07)
[2022-11-02] MEDS: FUROSEMIDE 40MG/4ML VIAL (J1940) IV SCH ×2 (08:25→17:37)
[2022-11-02] MEDS: DIGOXIN 0.25 MG TAB PO SCH (08:55)
[2022-11-02] MEDS: ATORVASTATIN 20 MG TAB PO SCH (08:55)
[2022-11-02] MEDS: APIXABAN 5 MG TAB (ELIQUIS) PO SCH ×2 (08:55→20:07)
[2022-11-02] MEDS: GABAPENTIN 400MG CAP PO SCH ×2 (08:55→20:07)
[2022-11-02] MEDS: ASPIRIN 81MG ENTERIC TABLET PO SCH (08:55)
[2022-11-02] MEDS: INSULIN LISPRO (NovoLOG) PER UNIT SC SCH ×4 (08:55→20:21)
[2022-11-02] MEDS: SERTRALINE HCL 25 MG TABLET PO SCH (08:56)
[2022-11-02] MEDS ORDERED: SERTRALINE HCL 50 MG TAB PO SCH (09:00)
[2022-11-02] MEDS: methylPREDNISolone 40MG 1ML VIAL IV SCH ×2 (13:42→20:06)
[2022-11-02] MEDS: ANEXSIA, NORCO 7.5MG/325MG TABLET(HYDROCODONE/APAP) PO PRN ×2 (13:52→21:54)
[2022-11-02] MEDS: guaiFENesin ER 600 MG TAB PO SCH ×2 (13:53→20:07)
[2022-11-02 22:00] VITALS: BP 125/77
[2022-11-03] MEDS: ALBUTEROL SULFATE 2.5 MG/0.5 ML INH NEB SOLN NEB SCH ×7 (04:00→23:55)
[2022-11-03] MEDS: methylPREDNISolone 40MG 1ML VIAL IV SCH ×3 (05:10→21:46)
[2022-11-03 06:00] VITALS: BP 128/83
[2022-11-03] MEDS: **hydrALAZINE HCL** 25 MG TAB PO SCH ×4 (06:00→17:52)
[2022-11-03 06:53] LABS: HEMATOCRIT 41.8 % (36.0-47.0); HEMOGLOBIN 11.5 g/dl (12.0-15.5); LYMPH # 0.9 10^3/uL (1.5-5.0); LYMPH % 15.5 % (24.0-44.0); MEAN CORPUSCULAR HEMOGLOBIN 23.2 pg (27.0-33.0); MEAN CORPUSCULAR HGB CONC 27.5 g/dl (32.0-36.5); MEAN CORPUSCULAR VOLUME 84.3 fl (80.0-96.0); MONO # 0.2 10^3/uL (0.0-0.8); MONO % 3.6 % (2.0-8.0); NEUTROPHILS # 4.9 10^3/uL (1.5-8.5); NEUTROPHILS % 80.6 % (36.0-66.0); PLATELET COUNT, AUTOMATED 198 10^3/uL (150-450); RED BLOOD COUNT 4.96 10^6/uL (4.00-5.40); WHITE BLOOD COUNT 6.1 10^3/uL (4.0-10.0)
[2022-11-03 07:16] LABS: BLOOD UREA NITROGEN 17 MG/DL (9-23); CALCIUM LEVEL 8.1 MG/DL (8.3-10.6); CARBON DIOXIDE LEVEL 31 MMOL/L (20-31); CHLORIDE LEVEL 100 MMOL/L (98-107); GLOMERULAR FILTRATION RATE > 60.0 (>45); GLUCOSE, FASTING 176 MG/DL (74-106); SODIUM LEVEL 140 MMOL/L (136-145)
[2022-11-03 08:09] VITALS: O2SAT 89
[2022-11-03] MEDS: TIOTROPIUM INHALER/CAPSULE (SPIRIVA) INH SCH (08:09)
[2022-11-03] MEDS: ADVAIR HFA 230/21MCG INHALER INH SCH ×2 (08:09→19:57)
[2022-11-03] MEDS: INSULIN LISPRO (NovoLOG) PER UNIT SC SCH ×4 (09:19→21:00)
[2022-11-03] MEDS: GABAPENTIN 400MG CAP PO SCH ×2 (09:19→21:45)
[2022-11-03] MEDS: APIXABAN 5 MG TAB (ELIQUIS) PO SCH ×2 (09:20→21:45)
[2022-11-03] MEDS: ASPIRIN 81MG ENTERIC TABLET PO SCH (09:20)
[2022-11-03] MEDS: ATORVASTATIN 20 MG TAB PO SCH (09:20)
[2022-11-03] MEDS: SERTRALINE HCL 25 MG TABLET PO SCH (09:20)
[2022-11-03] MEDS: guaiFENesin ER 600 MG TAB PO SCH ×2 (09:21→21:45)
[2022-11-03] MEDS: DIGOXIN 0.25 MG TAB PO SCH (09:22)
[2022-11-03] MEDS: METOPROLOL TART 50 MG TAB PO SCH ×2 (09:23→21:45)
[2022-11-03] MEDS: FUROSEMIDE 40MG/4ML VIAL (J1940) IV SCH ×2 (09:23→17:28)
[2022-11-03] MEDS: ANEXSIA, NORCO 7.5MG/325MG TABLET(HYDROCODONE/APAP) PO PRN ×2 (09:24→17:25)
[2022-11-03 11:34] VITALS: O2SAT 92
[2022-11-03 14:44] VITALS: BP 124/84
[2022-11-03 15:42] VITALS: O2SAT 91
[2022-11-03 22:00] VITALS: BP 138/86
[2022-11-04] VITALS (7 sets, daily range): BP systolic 126–140; BP diastolic 79–88; O2SAT 90–94
[2022-11-04] MEDS: ANEXSIA, NORCO 7.5MG/325MG TABLET(HYDROCODONE/APAP) PO PRN ×3 (01:19→19:53)
[2022-11-04] MEDS: ALBUTEROL SULFATE 2.5 MG/0.5 ML INH NEB SOLN NEB SCH ×6 (04:00→23:05)
[2022-11-04] MEDS: **hydrALAZINE HCL** 25 MG TAB PO SCH ×4 (05:09→17:20)
[2022-11-04] MEDS: methylPREDNISolone 40MG 1ML VIAL IV SCH ×3 (05:10→19:53)
[2022-11-04] MEDS: ANALGESIC BALM CRM 3OZ TOP SCH ×2 (05:40→19:54)
[2022-11-04 06:05] LABS: BASO % 0.1 % (0.0-1.0); HEMATOCRIT 41.7 % (36.0-47.0); HEMOGLOBIN 11.7 g/dl (12.0-15.5); LYMPH # 0.9 10^3/uL (1.5-5.0); LYMPH % 10.9 % (24.0-44.0); MEAN CORPUSCULAR HEMOGLOBIN 23.6 pg (27.0-33.0); MEAN CORPUSCULAR HGB CONC 28.1 g/dl (32.0-36.5); MEAN CORPUSCULAR VOLUME 84.2 fl (80.0-96.0); MONO # 0.3 10^3/uL (0.0-0.8); NEUTROPHILS # 6.9 10^3/uL (1.5-8.5); NEUTROPHILS % 84.6 % (36.0-66.0); PLATELET COUNT, AUTOMATED 196 10^3/uL (150-450); RED BLOOD COUNT 4.95 10^6/uL (4.00-5.40); WHITE BLOOD COUNT 8.1 10^3/uL (4.0-10.0)
[2022-11-04 06:25] LABS: BLOOD UREA NITROGEN 21 MG/DL (9-23); CALCIUM LEVEL 7.8 MG/DL (8.3-10.6); CARBON DIOXIDE LEVEL 33 MMOL/L (20-31); CHLORIDE LEVEL 98 MMOL/L (98-107); GLOMERULAR FILTRATION RATE > 60.0 (>45); GLUCOSE, FASTING 197 MG/DL (74-106); POTASSIUM SERUM 3.9 MMOL/L (3.5-5.1); SODIUM LEVEL 140 MMOL/L (136-145)
[2022-11-04] MEDS: ADVAIR HFA 230/21MCG INHALER INH SCH ×2 (08:48→19:22)
[2022-11-04] MEDS: TIOTROPIUM INHALER/CAPSULE (SPIRIVA) INH SCH (08:48)
[2022-11-04] MEDS: FUROSEMIDE 40MG/4ML VIAL (J1940) IV SCH ×2 (09:12→17:24)
[2022-11-04] MEDS: ATORVASTATIN 20 MG TAB PO SCH (09:12)
[2022-11-04] MEDS: LEVEMIR (INSULIN DETEMIR) 1 UNITS/0.01ML SC SCH (09:13)
[2022-11-04] MEDS: INSULIN LISPRO (NovoLOG) PER UNIT SC SCH ×4 (09:13→19:51)
[2022-11-04] MEDS: SERTRALINE HCL 25 MG TABLET PO SCH (09:14)
[2022-11-04] MEDS: ASPIRIN 81MG ENTERIC TABLET PO SCH (09:14)
[2022-11-04] MEDS: APIXABAN 5 MG TAB (ELIQUIS) PO SCH ×2 (09:14→19:52)
[2022-11-04] MEDS: DIGOXIN 0.25 MG TAB PO SCH (09:14)
[2022-11-04] MEDS: GABAPENTIN 400MG CAP PO SCH ×2 (09:14→19:52)
[2022-11-04] MEDS: guaiFENesin ER 600 MG TAB PO SCH ×2 (09:14→19:52)
[2022-11-04] MEDS: METOPROLOL TART 50 MG TAB PO SCH ×2 (09:15→19:53)
[2022-11-05] MEDS: ALBUTEROL SULFATE 2.5 MG/0.5 ML INH NEB SOLN NEB SCH ×5 (04:00→20:00)
[2022-11-05] MEDS: methylPREDNISolone 40MG 1ML VIAL IV SCH ×3 (05:13→20:03)
[2022-11-05] MEDS: ANEXSIA, NORCO 7.5MG/325MG TABLET(HYDROCODONE/APAP) PO PRN ×3 (05:13→22:48)
[2022-11-05 05:21] VITALS: BP 138/93
[2022-11-05] MEDS: **hydrALAZINE HCL** 25 MG TAB PO SCH ×2 (05:24)
[2022-11-05 05:48] LABS: HEMATOCRIT 42.2 % (36.0-47.0); HEMOGLOBIN 11.7 g/dl (12.0-15.5); LYMPH # 0.8 10^3/uL (1.5-5.0); LYMPH % 10.1 % (24.0-44.0); MEAN CORPUSCULAR HGB CONC 27.7 g/dl (32.0-36.5); MEAN CORPUSCULAR VOLUME 83.1 fl (80.0-96.0); MONO # 0.3 10^3/uL (0.0-0.8); NEUTROPHILS # 7.1 10^3/uL (1.5-8.5); NEUTROPHILS % 85.2 % (36.0-66.0); PLATELET COUNT, AUTOMATED 182 10^3/uL (150-450); RED BLOOD COUNT 5.08 10^6/uL (4.00-5.40); WHITE BLOOD COUNT 8.3 10^3/uL (4.0-10.0)
[2022-11-05 06:07] LABS: BLOOD UREA NITROGEN 28 MG/DL (9-23); CALCIUM LEVEL 7.6 MG/DL (8.3-10.6); CARBON DIOXIDE LEVEL 35 MMOL/L (20-31); CHLORIDE LEVEL 95 MMOL/L (98-107); CREATININE FOR GFR 0.78 MG/DL (0.55-1.30); GLOMERULAR FILTRATION RATE > 60.0 (>45); GLUCOSE, FASTING 189 MG/DL (74-106); POTASSIUM SERUM 3.9 MMOL/L (3.5-5.1); SODIUM LEVEL 139 MMOL/L (136-145)
[2022-11-05] MEDS: ADVAIR HFA 230/21MCG INHALER INH SCH ×2 (07:17→20:20)
[2022-11-05] MEDS: TIOTROPIUM INHALER/CAPSULE (SPIRIVA) INH SCH (07:17)
[2022-11-05] MEDS: FUROSEMIDE 40MG/4ML VIAL (J1940) IV SCH ×2 (08:03→17:52)
[2022-11-05] MEDS: LEVEMIR (INSULIN DETEMIR) 1 UNITS/0.01ML SC SCH (08:04)
[2022-11-05] MEDS: ASPIRIN 81MG ENTERIC TABLET PO SCH (08:04)
[2022-11-05] MEDS: INSULIN LISPRO (NovoLOG) PER UNIT SC SCH ×4 (08:04→20:04)
[2022-11-05] MEDS: ATORVASTATIN 20 MG TAB PO SCH (08:05)
[2022-11-05] MEDS: guaiFENesin ER 600 MG TAB PO SCH ×2 (08:05→20:05)
[2022-11-05] MEDS: METOPROLOL TART 50 MG TAB PO SCH ×2 (08:05→20:05)
[2022-11-05] MEDS: GABAPENTIN 400MG CAP PO SCH ×2 (08:05→20:05)
[2022-11-05] MEDS: SERTRALINE HCL 25 MG TABLET PO SCH (08:05)
[2022-11-05] MEDS: APIXABAN 5 MG TAB (ELIQUIS) PO SCH ×2 (08:05→20:05)
[2022-11-05] MEDS: DIGOXIN 0.25 MG TAB PO SCH (08:06)
[2022-11-05] MEDS: ANALGESIC BALM CRM 3OZ TOP SCH ×2 (08:06→20:05)
[2022-11-05] MEDS ORDERED: AZITHROMYCIN 250MG TABLET PO SCH (12:05)
[2022-11-05] MEDS: CEFDINIR 300 MG CAP (OMNICEF) PO SCH ×2 (13:21→20:04)
[2022-11-05 14:00] VITALS: BP 149/94
[2022-11-05 19:40] VITALS: BP 145/92
[2022-11-06] MEDS: ALBUTEROL SULFATE 2.5 MG/0.5 ML INH NEB SOLN NEB SCH ×7 (04:00→20:28)
[2022-11-06] MEDS: methylPREDNISolone 40MG 1ML VIAL IV SCH ×3 (05:13→19:44)
[2022-11-06] MEDS: ANEXSIA, NORCO 7.5MG/325MG TABLET(HYDROCODONE/APAP) PO PRN ×3 (05:14→19:46)
[2022-11-06 06:01] VITALS: BP 152/91
[2022-11-06 06:02] LABS: BASO % 0.1 % (0.0-1.0); HEMATOCRIT 41.9 % (36.0-47.0); LYMPH # 0.9 10^3/uL (1.5-5.0); LYMPH % 10.5 % (24.0-44.0); MEAN CORPUSCULAR HEMOGLOBIN 23.6 pg (27.0-33.0); MEAN CORPUSCULAR HGB CONC 28.6 g/dl (32.0-36.5); MEAN CORPUSCULAR VOLUME 82.5 fl (80.0-96.0); MONO # 0.5 10^3/uL (0.0-0.8); MONO % 5.5 % (2.0-8.0); NEUTROPHILS % 83.3 % (36.0-66.0); PLATELET COUNT, AUTOMATED 184 10^3/uL (150-450); RED BLOOD COUNT 5.08 10^6/uL (4.00-5.40); WHITE BLOOD COUNT 8.4 10^3/uL (4.0-10.0)
[2022-11-06 06:48] LABS: BLOOD UREA NITROGEN 32 MG/DL (9-23); CALCIUM LEVEL 7.8 MG/DL (8.3-10.6); CARBON DIOXIDE LEVEL 37 MMOL/L (20-31); CHLORIDE LEVEL 93 MMOL/L (98-107); CREATININE FOR GFR 0.82 MG/DL (0.55-1.30); GLOMERULAR FILTRATION RATE > 60.0 (>45); GLUCOSE, FASTING 191 MG/DL (74-106); POTASSIUM SERUM 3.8 MMOL/L (3.5-5.1); SODIUM LEVEL 138 MMOL/L (136-145)
[2022-11-06] MEDS: TIOTROPIUM INHALER/CAPSULE (SPIRIVA) INH SCH (07:02)
[2022-11-06] MEDS: ADVAIR HFA 230/21MCG INHALER INH SCH ×2 (07:02→20:26)
[2022-11-06] MEDS: FUROSEMIDE 40MG/4ML VIAL (J1940) IV SCH (08:59)
[2022-11-06] MEDS ORDERED: LEVEMIR (INSULIN DETEMIR) 1 UNITS/0.01ML SC SCH (09:00)
[2022-11-06] MEDS: ANALGESIC BALM CRM 3OZ TOP SCH ×2 (09:00→19:45)
[2022-11-06] MEDS: INSULIN LISPRO (NovoLOG) PER UNIT SC SCH ×4 (09:00→19:46)
[2022-11-06] MEDS: DIGOXIN 0.25 MG TAB PO SCH (09:01)
[2022-11-06] MEDS: GABAPENTIN 400MG CAP PO SCH ×2 (09:01→19:46)
[2022-11-06] MEDS: ATORVASTATIN 20 MG TAB PO SCH (09:01)
[2022-11-06] MEDS: METOPROLOL TART 50 MG TAB PO SCH ×2 (09:01→19:46)
[2022-11-06] MEDS: APIXABAN 5 MG TAB (ELIQUIS) PO SCH ×2 (09:01→19:46)
[2022-11-06] MEDS: ASPIRIN 81MG ENTERIC TABLET PO SCH (09:02)
[2022-11-06] MEDS: SERTRALINE HCL 25 MG TABLET PO SCH (09:02)
[2022-11-06] MEDS: CEFDINIR 300 MG CAP (OMNICEF) PO SCH ×2 (09:02→19:45)
[2022-11-06] MEDS: guaiFENesin ER 600 MG TAB PO SCH ×2 (09:02→19:46)
[2022-11-06 14:00] VITALS: BP 137/77
[2022-11-06] MEDS: TORSEMIDE 20 MG TAB PO SCH (19:45)
[2022-11-07] MEDS ORDERED: CALCIUM CARBONATE 500 MG CHEW U/D PO PRN (02:55)
[2022-11-07] MEDS: ALBUTEROL SULFATE 2.5 MG/0.5 ML INH NEB SOLN NEB SCH ×7 (04:00→23:21)
[2022-11-07 05:27] VITALS: BP 151/91
[2022-11-07] MEDS: methylPREDNISolone 40MG 1ML VIAL IV SCH (05:40)
[2022-11-07] MEDS: ANEXSIA, NORCO 7.5MG/325MG TABLET(HYDROCODONE/APAP) PO PRN ×2 (05:40→17:07)
[2022-11-07 06:14] LABS: BASO % 0.1 % (0.0-1.0); HEMATOCRIT 41.1 % (36.0-47.0); HEMOGLOBIN 11.5 g/dl (12.0-15.5); LYMPH # 0.7 10^3/uL (1.5-5.0); LYMPH % 9.8 % (24.0-44.0); MEAN CORPUSCULAR VOLUME 82.2 fl (80.0-96.0); MONO # 0.4 10^3/uL (0.0-0.8); NEUTROPHILS # 5.8 10^3/uL (1.5-8.5); NEUTROPHILS % 84.1 % (36.0-66.0); PLATELET COUNT, AUTOMATED 163 10^3/uL (150-450)
[2022-11-07 06:37] LABS: BLOOD UREA NITROGEN 37 MG/DL (9-23); CALCIUM LEVEL 7.7 MG/DL (8.3-10.6); CARBON DIOXIDE LEVEL 40 MMOL/L (20-31); CHLORIDE LEVEL 93 MMOL/L (98-107); CREATININE FOR GFR 0.81 MG/DL (0.55-1.30); GLOMERULAR FILTRATION RATE > 60.0 (>45); GLUCOSE, FASTING 248 MG/DL (74-106); POTASSIUM SERUM 3.5 MMOL/L (3.5-5.1); SODIUM LEVEL 140 MMOL/L (136-145)
[2022-11-07 07:53] VITALS: O2SAT 94
[2022-11-07] MEDS: TIOTROPIUM INHALER/CAPSULE (SPIRIVA) INH SCH (07:53)
[2022-11-07] MEDS: ADVAIR HFA 230/21MCG INHALER INH SCH ×2 (07:53→19:52)
[2022-11-07] MEDS: DIGOXIN 0.25 MG TAB PO SCH (08:02)
[2022-11-07] MEDS: LEVEMIR (INSULIN DETEMIR) 1 UNITS/0.01ML SC SCH (08:09)
[2022-11-07] MEDS: INSULIN LISPRO (NovoLOG) PER UNIT SC SCH ×4 (08:09→20:34)
[2022-11-07] MEDS: CEFDINIR 300 MG CAP (OMNICEF) PO SCH ×2 (08:09→20:33)
[2022-11-07] MEDS: METOPROLOL TART 50 MG TAB PO SCH ×2 (08:10→20:33)
[2022-11-07] MEDS: guaiFENesin ER 600 MG TAB PO SCH (08:10)
[2022-11-07] MEDS: APIXABAN 5 MG TAB (ELIQUIS) PO SCH ×2 (08:10→20:33)
[2022-11-07] MEDS: TORSEMIDE 20 MG TAB PO SCH ×2 (08:10→20:33)
[2022-11-07] MEDS: ATORVASTATIN 20 MG TAB PO SCH (08:10)
[2022-11-07] MEDS: SERTRALINE HCL 25 MG TABLET PO SCH (08:10)
[2022-11-07] MEDS: ASPIRIN 81MG ENTERIC TABLET PO SCH (08:10)
[2022-11-07] MEDS: GABAPENTIN 400MG CAP PO SCH ×2 (08:10→20:32)
[2022-11-07] MEDS: ANALGESIC BALM CRM 3OZ TOP SCH ×2 (08:11→20:34)
[2022-11-07 12:08] VITALS: O2SAT 96
[2022-11-07 15:04] VITALS: O2SAT 96
[2022-11-07] MEDS: predniSONE 20 MG TAB PO SCH (17:06)
[2022-11-07] MEDS: guaiFENesin 200 MG TAB PO SCH (17:06)
[2022-11-08] MEDS: guaiFENesin 200 MG TAB PO SCH ×3 (00:29→12:36)
[2022-11-08] MEDS: ANEXSIA, NORCO 7.5MG/325MG TABLET(HYDROCODONE/APAP) PO PRN ×2 (01:30→10:15)
[2022-11-08] MEDS: ALBUTEROL SULFATE 2.5 MG/0.5 ML INH NEB SOLN NEB SCH ×3 (03:16→11:22)
[2022-11-08 06:00] VITALS: BP 147/81
[2022-11-08] MEDS: ADVAIR HFA 230/21MCG INHALER INH SCH (07:32)
[2022-11-08] MEDS: TIOTROPIUM INHALER/CAPSULE (SPIRIVA) INH SCH (07:32)
[2022-11-08] MEDS: INSULIN LISPRO (NovoLOG) PER UNIT SC SCH ×2 (08:33→12:36)
[2022-11-08] MEDS: DIGOXIN 0.25 MG TAB PO SCH (08:34)
[2022-11-08] MEDS: SERTRALINE HCL 25 MG TABLET PO SCH (08:34)
[2022-11-08] MEDS: CEFDINIR 300 MG CAP (OMNICEF) PO SCH (08:34)
[2022-11-08] MEDS: ATORVASTATIN 20 MG TAB PO SCH (08:34)
[2022-11-08] MEDS: predniSONE 20 MG TAB PO SCH (08:34)
[2022-11-08] MEDS: APIXABAN 5 MG TAB (ELIQUIS) PO SCH (08:34)
[2022-11-08] MEDS: LEVEMIR (INSULIN DETEMIR) 1 UNITS/0.01ML SC SCH (08:34)
[2022-11-08 08:35] VITALS: BP 147/81
[2022-11-08] MEDS: ASPIRIN 81MG ENTERIC TABLET PO SCH (08:35)
[2022-11-08] MEDS: TORSEMIDE 20 MG TAB PO SCH (08:35)
[2022-11-08] MEDS: METOPROLOL TART 50 MG TAB PO SCH (08:35)
[2022-11-08] MEDS: ANALGESIC BALM CRM 3OZ TOP SCH (08:35)
[2022-11-08] MEDS: GABAPENTIN 400MG CAP PO SCH (08:35)
[2022-11-08] MEDS ORDERED: ALBU8.5H INH ×2 (10:48)
[2022-11-08] MEDS ORDERED: ALBU2.5V10 NEB (10:48)
[2022-11-08] MEDS ORDERED: ALBU2.5V10 INH (10:48)
[2022-11-08] MEDS ORDERED: AZIT-12 PO (10:48)
[2022-11-08] MEDS ORDERED: IPRA0.00 INH (10:48)
[2022-11-08] MEDS ORDERED: PRED20TA PO ×2 (10:48)
[2022-11-08 14:10] VITALS: BP 142/78
== END 2022-11-08 14:30 | disposition home or self-care (01) | DRG 194 ==
LOC: EDBD 06:33 → M ED 06:33 → M ED INP 11:30 → ENRESERV 15:22 → M PCU 17:34 → M MS5PR 11-02 13:20
PROVIDERS: ADMIT Internal Medicine Nephrology; ATTEND Family Medicine
DX: I11.0 Hypertensive heart disease with heart failure (principal); J96.11 Chronic respiratory failure with hypoxia; I27.29 Other secondary pulmonary hypertension; J44.1 Chronic obstructive pulmonary disease with (acute) exacerbation; J96.12 Chronic respiratory failure with hypercapnia; E66.2 Morbid (severe) obesity with alveolar hypoventilation; Z68.42 Body mass index [BMI] 45.0-49.9, adult; J84.10 Pulmonary fibrosis, unspecified; I48.91 Unspecified atrial fibrillation; G40.909 Epilepsy, unspecified, not intractable, without status epilepticus; I50.33 Acute on chronic diastolic (congestive) heart failure; Z99.81 Dependence on supplemental oxygen; B97.4 Respiratory syncytial virus as the cause of diseases classified elsewhere; Z79.01 Long term (current) use of anticoagulants; E11.9 Type 2 diabetes mellitus without complications; K21.9 Gastro-esophageal reflux disease without esophagitis; E78.5 Hyperlipidemia, unspecified; M17.0 Bilateral primary osteoarthritis of knee; M51.36 Other intervertebral disc degeneration, lumbar region; G89.29 Other chronic pain; F41.9 Anxiety disorder, unspecified; F32.A Depression, unspecified; Z66 Do not resuscitate; N32.81 Overactive bladder; M48.061 Spinal stenosis, lumbar region without neurogenic claudication; Z90.49 Acquired absence of other specified parts of digestive tract; F17.200 Nicotine dependence, unspecified, uncomplicated; Z20.822 Contact with and (suspected) exposure to COVID-19; Z79.82 Long term (current) use of aspirin; Z79.84 Long term (current) use of oral hypoglycemic drugs; Z79.899 Other long term (current) drug therapy; Z88.0 Allergy status to penicillin; Z79.4 Long term (current) use of insulin; Z79.51 Long term (current) use of inhaled steroids

== ENCOUNTER 2022-12-09 13:34 | Inpatient (IN) | payer OTHER ==
[~2022-12-09] VITALS: Ht 177.8 cm; Wt 111.0 kg
[~2022-12-09 13:34] MED LIST changes: +AIRD1INH3 INH; +ALBU2.5V10 INH; +AZIT-12 PO; +ECOT81TA5 PO; +GUAI100L6 PO; +IPRA0.00 INH; +MM S100C PO
[2022-12-09 14:39] LABS: BASO % 0.1 % (0.0-1.0); EOS % 0.1 % (0.0-3.0); HEMATOCRIT 40.1 % (36.0-47.0); HEMOGLOBIN 11.5 g/dl (12.0-15.5); LYMPH # 1.3 10^3/uL (1.5-5.0); LYMPH % 9.5 % (24.0-44.0); MEAN CORPUSCULAR HGB CONC 28.7 g/dl (32.0-36.5); MEAN CORPUSCULAR VOLUME 87.2 fl (80.0-96.0); MONO # 0.7 10^3/uL (0.0-0.8); MONO % 4.8 % (2.0-8.0); NEUTROPHILS # 11.7 10^3/uL (1.5-8.5); PLATELET COUNT, AUTOMATED 309 10^3/uL (150-450); WHITE BLOOD COUNT 13.7 10^3/uL (4.0-10.0)
[2022-12-09 15:11] LABS: ALBUMIN 3.3 G/DL (3.2-5.2); ALKALINE PHOSPHATASE 117 U/L (46-116); ALT/SGPT 26 U/L (7.0-40); AST/SGOT 32 U/L (<34); BILIRUBIN,DIRECT 0.3 MG/DL (<0.4); BILIRUBIN,TOTAL 0.4 MG/DL (0.3-1.2); BLOOD UREA NITROGEN 44 MG/DL (9-23); CALCIUM LEVEL 8.6 MG/DL (8.3-10.6); CARBON DIOXIDE LEVEL 19 MMOL/L (20-31); CHLORIDE LEVEL 97 MMOL/L (98-107); CREATININE FOR GFR 1.83 MG/DL (0.55-1.30); DIGOXIN LEVEL < 0.1 NG/ML (0.8-2.0); GLOMERULAR FILTRATION RATE 29.8 (>45); GLUCOSE, FASTING 117 MG/DL (74-106); POTASSIUM SERUM 5.8 MMOL/L (3.5-5.1); SODIUM LEVEL 131 MMOL/L (136-145); TOTAL PROTEIN 6.5 G/DL (5.7-8.2)
[2022-12-09 15:13] LABS: THYROID STIMULATING HORMONE 4.471 uIU/ML (0.55-4.78)
[2022-12-09 15:37] LABS: RSV AMPLIFICATION NEGATIVE (NEGATIVE)
[2022-12-09] MEDS ORDERED: FUROSEMIDE 40MG/4ML VIAL IV ONE (15:50)
[2022-12-09] MEDS ORDERED: ALBUTEROL SULFATE 2.5MG/0.5ML INH NEB SOLN NEB ONE (16:25)
[2022-12-09] MEDS ORDERED: CALCIUM GLUCONATE 1,000 MG in D5W MINI-BAG PLUS 100 ML IV ONE (16:25)
[2022-12-09] MEDS ORDERED: NS 1,000 ML IV ONE (16:25)
[2022-12-09] MEDS ORDERED: ADME100I2 SC (16:35)
[2022-12-09] MEDS ORDERED: FAMO20TA5 PO (16:35)
[2022-12-09] MEDS ORDERED: FLUT1INH2 INH (16:35)
[2022-12-09] MEDS ORDERED: QUET400T42 PO (16:35)
[2022-12-09] MEDS ORDERED: HOME MED LIST COMPLETE! XX SCH ×2 (16:45)
[2022-12-09] MEDS ORDERED: IPRATROPIUM 0.5MG/ALBUTEROL 2.5MG INH SOL UD 3ML (DUONEB) INH PRN (17:05)
[2022-12-09] MEDS ORDERED: guaiFENesin SYRUP 200MG 10ML UDC PO PRN (17:05)
[2022-12-09] MEDS ORDERED: GLUCAGON INJ 1MG VIAL SC PRN (17:55)
[2022-12-09] MEDS ORDERED: DEXTROSE 50% 50ML SYRINGE IV PRN (17:55)
[2022-12-09] MEDS ORDERED: GLUCOSE 4GM CHEW TABLET PO PRN (17:55)
[2022-12-09 18:13] LABS: CALCIUM LEVEL 8.3 MG/DL (8.3-10.6); CREATININE FOR GFR 1.74 MG/DL (0.55-1.30); GLOMERULAR FILTRATION RATE 31.6 (>45); POTASSIUM SERUM 5.9 MMOL/L (3.5-5.1)
[2022-12-09 18:50] VITALS: BP 113/73
[2022-12-09] MEDS: INSULIN LISPRO (NovoLOG) PER UNIT SC SCH (20:17)
[2022-12-09] MEDS ORDERED: GABAPENTIN 400MG CAP PO SCH (21:00)
[2022-12-09 21:09] LABS: CALCIUM LEVEL 8.5 MG/DL (8.3-10.6); CREATININE FOR GFR 1.72 MG/DL (0.55-1.30); POTASSIUM SERUM 4.9 MMOL/L (3.5-5.1)
[2022-12-09] MEDS: QUEtiapine FUMARATE **XR** 200MG TABLET PO SCH (21:56)
[2022-12-09] MEDS: APIXABAN 5 MG TAB (ELIQUIS) PO SCH (21:57)
[2022-12-09] MEDS: METOPROLOL TART 50 MG TAB PO SCH (21:57)
[2022-12-09] MEDS: ANEXSIA, NORCO 7.5MG/325MG TABLET(HYDROCODONE/APAP) PO PRN (21:59)
[2022-12-09] MEDS: GABAPENTIN 100 MG CAP PO SCH (22:51)
[2022-12-09] MEDS: NS 1,000 ML IV SCH (22:52)
[2022-12-10] VITALS (46 sets, daily range): BP systolic 90–126; BP diastolic 58–72; O2SAT 58–100
[2022-12-10 00:45] LABS: CALCIUM LEVEL 8.2 MG/DL (8.3-10.6); CREATININE FOR GFR 1.62 MG/DL (0.55-1.30); GLOMERULAR FILTRATION RATE 34.3 (>45); POTASSIUM SERUM 4.9 MMOL/L (3.5-5.1)
[2022-12-10 06:50] LABS: HEMATOCRIT 37.1 % (36.0-47.0); HEMOGLOBIN 10.5 g/dl (12.0-15.5); MEAN CORPUSCULAR HEMOGLOBIN 24.3 pg (27.0-33.0); MEAN CORPUSCULAR HGB CONC 28.3 g/dl (32.0-36.5); MEAN CORPUSCULAR VOLUME 85.9 fl (80.0-96.0); PLATELET COUNT, AUTOMATED 238 10^3/uL (150-450); RED BLOOD COUNT 4.32 10^6/uL (4.00-5.40); WHITE BLOOD COUNT 8.8 10^3/uL (4.0-10.0)
[2022-12-10 07:18] LABS: CALCIUM LEVEL 8.1 MG/DL (8.3-10.6); CREATININE FOR GFR 1.49 MG/DL (0.55-1.30); GLOMERULAR FILTRATION RATE 37.7 (>45); POTASSIUM SERUM 4.8 MMOL/L (3.5-5.1)
[2022-12-10] MEDS ORDERED: SERTRALINE HCL 50 MG TAB PO SCH (09:00)
[2022-12-10] MEDS: SERTRALINE HCL 25 MG TABLET PO SCH (09:15)
[2022-12-10] MEDS: APIXABAN 5 MG TAB (ELIQUIS) PO SCH ×2 (09:15→21:36)
[2022-12-10] MEDS: FAMOTIDINE 20 MG TAB PO SCH (09:15)
[2022-12-10] MEDS: ASPIRIN 81MG ENTERIC TABLET PO SCH (09:15)
[2022-12-10] MEDS: INSULIN LISPRO (NovoLOG) PER UNIT SC SCH ×4 (09:15→21:00)
[2022-12-10] MEDS: METOPROLOL TART 50 MG TAB PO SCH ×2 (09:16→21:00)
[2022-12-10] MEDS: GABAPENTIN 100 MG CAP PO SCH ×3 (09:16→21:36)
[2022-12-10] MEDS: ATORVASTATIN 20 MG TAB PO SCH (09:16)
[2022-12-10] MEDS: NS 1,000 ML IV SCH ×2 (09:17→21:29)
[2022-12-10] MEDS: VANICREAM MOISTURIZING SKIN CREAM 113GM TUBE TOP SCH (09:17)
[2022-12-10] MEDS: ANEXSIA, NORCO 7.5MG/325MG TABLET(HYDROCODONE/APAP) PO PRN (12:16)
[2022-12-10] MEDS ORDERED: NS 1,000 ML IV ONE (16:45)
[2022-12-10] MEDS ORDERED: NS 500 ML IV ONE ×2 (18:20→18:30)
[2022-12-10] MEDS: QUEtiapine FUMARATE **XR** 200MG TABLET PO SCH (21:36)
[2022-12-11] VITALS (30 sets, daily range): BP systolic 88–127; BP diastolic 50–86; O2SAT 83–97
[2022-12-11] MEDS ORDERED: UNRESOLVED CLARIFICATION ENTRY XX SCH (00:01)
[2022-12-11 05:58] LABS: BASO % 0.4 % (0.0-1.0); EOS % 0.5 % (0.0-3.0); HEMATOCRIT 36.9 % (36.0-47.0); HEMOGLOBIN 10.3 g/dl (12.0-15.5); LYMPH # 1.8 10^3/uL (1.5-5.0); LYMPH % 21.3 % (24.0-44.0); MEAN CORPUSCULAR HEMOGLOBIN 24.5 pg (27.0-33.0); MEAN CORPUSCULAR HGB CONC 27.9 g/dl (32.0-36.5); MEAN CORPUSCULAR VOLUME 87.6 fl (80.0-96.0); MONO # 0.9 10^3/uL (0.0-0.8); NEUTROPHILS # 5.6 10^3/uL (1.5-8.5); NEUTROPHILS % 66.3 % (36.0-66.0); PLATELET COUNT, AUTOMATED 248 10^3/uL (150-450); RED BLOOD COUNT 4.21 10^6/uL (4.00-5.40); WHITE BLOOD COUNT 8.5 10^3/uL (4.0-10.0)
[2022-12-11 06:32] LABS: MAGNESIUM LEVEL 1.6 MG/DL (1.8-2.4)
[2022-12-11 06:34] LABS: CALCIUM LEVEL 7.9 MG/DL (8.3-10.6); CREATININE FOR GFR 1.19 MG/DL (0.55-1.30); GLOMERULAR FILTRATION RATE 48.9 (>45); POTASSIUM SERUM 4.9 MMOL/L (3.5-5.1)
[2022-12-11] MEDS: INSULIN LISPRO (NovoLOG) PER UNIT SC SCH ×4 (07:30→21:00)
[2022-12-11] MEDS: MAG SULF 1GM/100ML (MAG RUN) 1 GM in IV 1 EA IV SCH ×2 (09:08→10:41)
[2022-12-11] MEDS: ASPIRIN 81MG ENTERIC TABLET PO SCH (09:09)
[2022-12-11] MEDS: GABAPENTIN 100 MG CAP PO SCH ×3 (09:09→21:04)
[2022-12-11] MEDS: SERTRALINE HCL 25 MG TABLET PO SCH (09:09)
[2022-12-11] MEDS: APIXABAN 5 MG TAB (ELIQUIS) PO SCH ×2 (09:09→21:04)
[2022-12-11] MEDS: FAMOTIDINE 20 MG TAB PO SCH (09:09)
[2022-12-11] MEDS: ATORVASTATIN 20 MG TAB PO SCH (09:09)
[2022-12-11] MEDS: DIGOXIN 0.25 MG TAB PO SCH (09:11)
[2022-12-11] MEDS: VANICREAM MOISTURIZING SKIN CREAM 113GM TUBE TOP SCH (09:12)
[2022-12-11] MEDS: METOPROLOL TART 50 MG TAB PO SCH ×2 (09:12→21:05)
[2022-12-11] MEDS: LIDOCAINE 5% (LIDODERM) PATCH TD SCH (09:13)
[2022-12-11] MEDS: NICOTINE 21MG/24HR 1 EA TRANSDERMAL TD SCH (10:42)
[2022-12-11] MEDS: SODIUM CHLORIDE NASAL 0.65% SPRAY BTL (OCEAN) SCH ×2 (10:45→21:06)
[2022-12-11] MEDS ORDERED: DIGOXIN INJ 0.5 MG/2 ML AMP IV ONE (12:00)
[2022-12-11 13:01] LABS: ABG BASE EXCESS -3.5 (-2.0-2.0); ABG HCO3 23.7 MEQ/L (22.0-26.0); ABG O2 SATURATION 89.9 % (95.0-99.0); ABG PARTIAL PRESSURE O2 66.3 mmHg (75.0-100.0); ABG STANDARD HCO3 21.4 MEQ/L (22.0-26.0); ABG TOTAL CO2 25.3 MEQ/L (23.0-31.0); ABG pH (ARTERIAL) 7.276 UNITS (7.350-7.450)
[2022-12-11 13:20] LABS: BASO % 0.3 % (0.0-1.0); EOS % 0.1 % (0.0-3.0); HEMATOCRIT 38.5 % (36.0-47.0); LYMPH # 1.1 10^3/uL (1.5-5.0); LYMPH % 11.5 % (24.0-44.0); MEAN CORPUSCULAR HEMOGLOBIN 24.6 pg (27.0-33.0); MEAN CORPUSCULAR HGB CONC 28.6 g/dl (32.0-36.5); MEAN CORPUSCULAR VOLUME 85.9 fl (80.0-96.0); MONO # 0.8 10^3/uL (0.0-0.8); MONO % 8.8 % (2.0-8.0); NEUTROPHILS # 7.2 10^3/uL (1.5-8.5); NEUTROPHILS % 78.9 % (36.0-66.0); PLATELET COUNT, AUTOMATED 269 10^3/uL (150-450); RED BLOOD COUNT 4.48 10^6/uL (4.00-5.40); WHITE BLOOD COUNT 9.2 10^3/uL (4.0-10.0)
[2022-12-11 13:50] LABS: CK-MB VALUE MASS 1.1 NG/ML (<3.6)
[2022-12-11 13:56] LABS: MAGNESIUM LEVEL 1.8 MG/DL (1.8-2.4)
[2022-12-11 13:57] LABS: MB/CK RELATIVE INDEX 3.05 (< OR =4)
[2022-12-11] MEDS ORDERED: FUROSEMIDE 100MG/10ML VIAL IV ONE (14:00)
[2022-12-11 14:07] LABS: ALBUMIN 2.7 G/DL (3.2-5.2); BILIRUBIN,TOTAL 0.5 MG/DL (0.3-1.2); CALCIUM LEVEL 8.2 MG/DL (8.3-10.6); CREATININE FOR GFR 1.08 MG/DL (0.55-1.30); GLOMERULAR FILTRATION RATE 54.7 (>45); POTASSIUM SERUM 5.1 MMOL/L (3.5-5.1); TOTAL PROTEIN 5.4 G/DL (5.7-8.2)
[2022-12-11] MEDS: LACTULOSE 20GM/30ML SYRUP UDC PO SCH ×2 (17:19→23:14)
[2022-12-11] MEDS: QUEtiapine FUMARATE **XR** 200MG TABLET PO SCH (21:04)
[2022-12-11] MEDS: traMADol 50 MG TAB PO PRN (21:10)
[2022-12-12] VITALS (14 sets, daily range): BP systolic 100–125; BP diastolic 56–78; O2SAT 89–99
[2022-12-12 05:57] LABS: BASO % 0.2 % (0.0-1.0); EOS % 0.4 % (0.0-3.0); HEMATOCRIT 35.1 % (36.0-47.0); HEMOGLOBIN 9.9 g/dl (12.0-15.5); LYMPH # 1.5 10^3/uL (1.5-5.0); LYMPH % 17.7 % (24.0-44.0); MEAN CORPUSCULAR HEMOGLOBIN 24.4 pg (27.0-33.0); MEAN CORPUSCULAR HGB CONC 28.2 g/dl (32.0-36.5); MEAN CORPUSCULAR VOLUME 86.7 fl (80.0-96.0); MONO # 0.9 10^3/uL (0.0-0.8); MONO % 10.6 % (2.0-8.0); NEUTROPHILS # 5.9 10^3/uL (1.5-8.5); NEUTROPHILS % 70.6 % (36.0-66.0); PLATELET COUNT, AUTOMATED 258 10^3/uL (150-450); RED BLOOD COUNT 4.05 10^6/uL (4.00-5.40); WHITE BLOOD COUNT 8.4 10^3/uL (4.0-10.0)
[2022-12-12 06:07] LABS: MAGNESIUM LEVEL 1.7 MG/DL (1.8-2.4)
[2022-12-12 06:09] LABS: BLOOD UREA NITROGEN 42 MG/DL (9-23); CARBON DIOXIDE LEVEL 28 MMOL/L (20-31); CHLORIDE LEVEL 104 MMOL/L (98-107); CREATININE FOR GFR 0.91 MG/DL (0.55-1.30); GLOMERULAR FILTRATION RATE > 60.0 (>45); GLUCOSE, FASTING 127 MG/DL (74-106); POTASSIUM SERUM 4.2 MMOL/L (3.5-5.1); SODIUM LEVEL 139 MMOL/L (136-145)
[2022-12-12] MEDS ORDERED: MAG SULF 1GM/100ML (MAG RUN) 1 GM in IV 1 EA IV ONE (07:30)
[2022-12-12] MEDS: METOPROLOL TART 50 MG TAB PO SCH ×2 (08:19→20:30)
[2022-12-12] MEDS: TORSEMIDE 20 MG TAB PO SCH ×2 (08:19→17:15)
[2022-12-12] MEDS: INSULIN LISPRO (NovoLOG) PER UNIT SC SCH ×4 (08:20→20:36)
[2022-12-12] MEDS: SERTRALINE HCL 25 MG TABLET PO SCH (08:21)
[2022-12-12] MEDS: ASPIRIN 81MG ENTERIC TABLET PO SCH (08:21)
[2022-12-12] MEDS: GABAPENTIN 100 MG CAP PO SCH ×3 (08:23→20:29)
[2022-12-12] MEDS: DIGOXIN 0.25 MG TAB PO SCH (08:23)
[2022-12-12] MEDS: APIXABAN 5 MG TAB (ELIQUIS) PO SCH ×2 (08:23→20:29)
[2022-12-12] MEDS: ATORVASTATIN 20 MG TAB PO SCH (08:23)
[2022-12-12] MEDS: NICOTINE 21MG/24HR 1 EA TRANSDERMAL TD SCH (08:24)
[2022-12-12] MEDS: LIDOCAINE 5% (LIDODERM) PATCH TD SCH (08:24)
[2022-12-12] MEDS: VANICREAM MOISTURIZING SKIN CREAM 113GM TUBE TOP SCH (08:25)
[2022-12-12] MEDS: SODIUM CHLORIDE NASAL 0.65% SPRAY BTL (OCEAN) SCH ×2 (08:25→20:37)
[2022-12-12] MEDS: FAMOTIDINE 20 MG TAB PO SCH (08:29)
[2022-12-12] MEDS: LACTULOSE 20GM/30ML SYRUP UDC PO SCH ×4 (08:29→23:48)
[2022-12-12] MEDS ORDERED: TORSEMIDE 20 MG TAB PO ONE (08:55)
[2022-12-12] MEDS ORDERED: TORSEMIDE 10 MG TABLET PO SCH (09:00)
[2022-12-12] MEDS ORDERED: UNRESOLVED CLARIFICATION ENTRY XX ONE (10:00)
[2022-12-12 10:22] LABS: ABG BASE EXCESS -1.5 (-2.0-2.0); ABG HCO3 24.7 MEQ/L (22.0-26.0); ABG O2 SATURATION 89.9 % (95.0-99.0); ABG PARTIAL PRESSURE CO2 48.1 mmHg (35.0-45.0); ABG PARTIAL PRESSURE O2 63.6 mmHg (75.0-100.0); ABG STANDARD HCO3 23.1 MEQ/L (22.0-26.0); ABG TOTAL CO2 26.2 MEQ/L (23.0-31.0); ABG pH (ARTERIAL) 7.329 UNITS (7.350-7.450)
[2022-12-12] MEDS: QUEtiapine FUMARATE **XR** 200MG TABLET PO SCH (20:28)
[2022-12-12] MEDS: traMADol 50 MG TAB PO PRN (20:29)
[2022-12-13] VITALS (14 sets, daily range): BP systolic 96–123; BP diastolic 55–71; O2SAT 88–97
[2022-12-13] MEDS: LACTULOSE 20GM/30ML SYRUP UDC PO SCH ×3 (05:04→18:20)
[2022-12-13 05:43] LABS: BASO % 0.3 % (0.0-1.0); EOS # 0.1 10^3/uL (0.0-0.5); EOS % 0.6 % (0.0-3.0); HEMATOCRIT 35.9 % (36.0-47.0); HEMOGLOBIN 9.9 g/dl (12.0-15.5); LYMPH # 1.7 10^3/uL (1.5-5.0); LYMPH % 17.8 % (24.0-44.0); MEAN CORPUSCULAR HEMOGLOBIN 24.1 pg (27.0-33.0); MEAN CORPUSCULAR HGB CONC 27.6 g/dl (32.0-36.5); MEAN CORPUSCULAR VOLUME 87.3 fl (80.0-96.0); MONO # 0.8 10^3/uL (0.0-0.8); MONO % 8.7 % (2.0-8.0); NEUTROPHILS # 6.8 10^3/uL (1.5-8.5); NEUTROPHILS % 72.2 % (36.0-66.0); PLATELET COUNT, AUTOMATED 233 10^3/uL (150-450); RED BLOOD COUNT 4.11 10^6/uL (4.00-5.40); WHITE BLOOD COUNT 9.4 10^3/uL (4.0-10.0)
[2022-12-13 06:08] LABS: MAGNESIUM LEVEL 1.4 MG/DL (1.8-2.4)
[2022-12-13 06:10] LABS: BLOOD UREA NITROGEN 37 MG/DL (9-23); CALCIUM LEVEL 8.3 MG/DL (8.3-10.6); CARBON DIOXIDE LEVEL 34 MMOL/L (20-31); CHLORIDE LEVEL 103 MMOL/L (98-107); DIGOXIN LEVEL 1.3 NG/ML (0.8-2.0); GLOMERULAR FILTRATION RATE > 60.0 (>45); GLUCOSE, FASTING 97 MG/DL (74-106); POTASSIUM SERUM 3.6 MMOL/L (3.5-5.1); SODIUM LEVEL 142 MMOL/L (136-145)
[2022-12-13] MEDS: INSULIN LISPRO (NovoLOG) PER UNIT SC SCH ×4 (07:30→21:00)
[2022-12-13] MEDS: MAG SULF 1GM/100ML (MAG RUN) 1 GM in IV 1 EA IV SCH ×2 (08:26→09:31)
[2022-12-13] MEDS: METOPROLOL TART 50 MG TAB PO SCH ×2 (09:00→22:06)
[2022-12-13] MEDS: TORSEMIDE 20 MG TAB PO SCH (09:00)
[2022-12-13] MEDS: ASPIRIN 81MG ENTERIC TABLET PO SCH (09:27)
[2022-12-13] MEDS: APIXABAN 5 MG TAB (ELIQUIS) PO SCH ×2 (09:27→22:07)
[2022-12-13] MEDS: ATORVASTATIN 20 MG TAB PO SCH (09:27)
[2022-12-13] MEDS: SERTRALINE HCL 25 MG TABLET PO SCH (09:28)
[2022-12-13] MEDS: GABAPENTIN 100 MG CAP PO SCH ×3 (09:28→22:05)
[2022-12-13] MEDS: FAMOTIDINE 20 MG TAB PO SCH (09:28)
[2022-12-13] MEDS: DIGOXIN 0.25 MG TAB PO SCH (09:31)
[2022-12-13] MEDS: SODIUM CHLORIDE NASAL 0.65% SPRAY BTL (OCEAN) SCH ×2 (09:31→22:07)
[2022-12-13] MEDS: LIDOCAINE 5% (LIDODERM) PATCH TD SCH (09:32)
[2022-12-13] MEDS: NICOTINE 21MG/24HR 1 EA TRANSDERMAL TD SCH (09:32)
[2022-12-13] MEDS: VANICREAM MOISTURIZING SKIN CREAM 113GM TUBE TOP SCH (09:33)
[2022-12-13] MEDS ORDERED: MAG SULF 1GM/100ML (MAG RUN) 1 GM in IV 1 EA IV ONE ×2 (11:00→14:00)
[2022-12-13] MEDS: POTASSIUM CHLORIDE 10MEQ SR TABLET PO SCH (11:19)
[2022-12-13] MEDS: traMADol 50 MG TAB PO PRN ×2 (11:27→22:05)
[2022-12-13] MEDS: TORSEMIDE 10 MG TABLET PO SCH (18:20)
[2022-12-13] MEDS ORDERED: MAGNESIUM OXIDE 400MG TAB (MAG-OX) PO SCH (21:00)
[2022-12-13] MEDS: QUEtiapine FUMARATE **XR** 200MG TABLET PO SCH (22:06)
[2022-12-14] VITALS: BP 116/71
[2022-12-14] MEDS: LACTULOSE 20GM/30ML SYRUP UDC PO SCH ×5 (00:50→21:39)
[2022-12-14 04:00] VITALS: BP 93/67
[2022-12-14 04:59] LABS: BASO % 0.2 % (0.0-1.0); EOS % 0.4 % (0.0-3.0); HEMATOCRIT 37.1 % (36.0-47.0); HEMOGLOBIN 10.3 g/dl (12.0-15.5); LYMPH # 1.4 10^3/uL (1.5-5.0); LYMPH % 14.9 % (24.0-44.0); MEAN CORPUSCULAR HEMOGLOBIN 24.5 pg (27.0-33.0); MEAN CORPUSCULAR HGB CONC 27.8 g/dl (32.0-36.5); MEAN CORPUSCULAR VOLUME 88.1 fl (80.0-96.0); MONO # 0.9 10^3/uL (0.0-0.8); MONO % 9.7 % (2.0-8.0); NEUTROPHILS # 6.9 10^3/uL (1.5-8.5); NEUTROPHILS % 74.4 % (36.0-66.0); PLATELET COUNT, AUTOMATED 218 10^3/uL (150-450); RED BLOOD COUNT 4.21 10^6/uL (4.00-5.40); WHITE BLOOD COUNT 9.3 10^3/uL (4.0-10.0)
[2022-12-14 05:30] LABS: MAGNESIUM LEVEL 1.6 MG/DL (1.8-2.4)
[2022-12-14 05:31] LABS: BLOOD UREA NITROGEN 22 MG/DL (9-23); CALCIUM LEVEL 8.1 MG/DL (8.3-10.6); CARBON DIOXIDE LEVEL 33 MMOL/L (20-31); CHLORIDE LEVEL 106 MMOL/L (98-107); CREATININE FOR GFR 0.75 MG/DL (0.55-1.30); GLOMERULAR FILTRATION RATE > 60.0 (>45); GLUCOSE, FASTING 111 MG/DL (74-106); POTASSIUM SERUM 3.8 MMOL/L (3.5-5.1); SODIUM LEVEL 144 MMOL/L (136-145)
[2022-12-14] MEDS: MAG SULF 1GM/100ML (MAG RUN) 1 GM in IV 1 EA IV SCH ×2 (07:28→09:10)
[2022-12-14 07:53] VITALS: BP 101/56
[2022-12-14] MEDS: METOPROLOL TART 50 MG TAB PO SCH ×2 (09:00→20:22)
[2022-12-14] MEDS: SERTRALINE HCL 25 MG TABLET PO SCH (09:07)
[2022-12-14] MEDS: POTASSIUM CHLORIDE 10MEQ SR TABLET PO SCH (09:07)
[2022-12-14] MEDS: ATORVASTATIN 20 MG TAB PO SCH (09:08)
[2022-12-14] MEDS: TORSEMIDE 10 MG TABLET PO SCH ×2 (09:09→16:51)
[2022-12-14] MEDS: GABAPENTIN 100 MG CAP PO SCH ×3 (09:09→20:03)
[2022-12-14] MEDS: DIGOXIN 0.25 MG TAB PO SCH (09:09)
[2022-12-14] MEDS: FAMOTIDINE 20 MG TAB PO SCH (09:09)
[2022-12-14] MEDS: LIDOCAINE 5% (LIDODERM) PATCH TD SCH (09:10)
[2022-12-14] MEDS: NICOTINE 21MG/24HR 1 EA TRANSDERMAL TD SCH (09:10)
[2022-12-14] MEDS: APIXABAN 5 MG TAB (ELIQUIS) PO SCH ×2 (09:10→20:04)
[2022-12-14] MEDS: ASPIRIN 81MG ENTERIC TABLET PO SCH (09:10)
[2022-12-14] MEDS: NYSTATIN CREAM 15GM TOP PRN (09:11)
[2022-12-14] MEDS: SODIUM CHLORIDE NASAL 0.65% SPRAY BTL (OCEAN) SCH ×2 (09:11→20:05)
[2022-12-14] MEDS: VANICREAM MOISTURIZING SKIN CREAM 113GM TUBE TOP SCH (09:13)
[2022-12-14] MEDS: INSULIN LISPRO (NovoLOG) PER UNIT SC SCH ×4 (09:14→20:17)
[2022-12-14] MEDS: MAGNESIUM OXIDE 400MG TAB (MAG-OX) PO SCH ×2 (09:18→20:05)
[2022-12-14 12:00] VITALS: BP 95/52
[2022-12-14] MEDS: traMADol 50 MG TAB PO PRN ×2 (13:28→20:17)
[2022-12-14 16:29] VITALS: BP 107/63
[2022-12-14] MEDS: SIMETHICONE 80MG CHEW TAB PO PRN ×2 (17:29→20:17)
[2022-12-14 19:44] VITALS: BP 125/72
[2022-12-14] MEDS: QUEtiapine FUMARATE **XR** 200MG TABLET PO SCH (20:04)
[2022-12-15] MEDS: LACTULOSE 20GM/30ML SYRUP UDC PO SCH ×4 (05:39→21:22)
[2022-12-15 06:33] LABS: BASO % 0.2 % (0.0-1.0); EOS # 0.1 10^3/uL (0.0-0.5); EOS % 1.1 % (0.0-3.0); HEMATOCRIT 39.3 % (36.0-47.0); HEMOGLOBIN 10.7 g/dl (12.0-15.5); LYMPH # 1.3 10^3/uL (1.5-5.0); LYMPH % 15.7 % (24.0-44.0); MEAN CORPUSCULAR HEMOGLOBIN 24.5 pg (27.0-33.0); MEAN CORPUSCULAR HGB CONC 27.2 g/dl (32.0-36.5); MEAN CORPUSCULAR VOLUME 89.9 fl (80.0-96.0); MONO # 0.7 10^3/uL (0.0-0.8); MONO % 8.7 % (2.0-8.0); NEUTROPHILS # 6.1 10^3/uL (1.5-8.5); NEUTROPHILS % 73.9 % (36.0-66.0); PLATELET COUNT, AUTOMATED 198 10^3/uL (150-450); RED BLOOD COUNT 4.37 10^6/uL (4.00-5.40); WHITE BLOOD COUNT 8.2 10^3/uL (4.0-10.0)
[2022-12-15 07:00] LABS: MAGNESIUM LEVEL 1.6 MG/DL (1.8-2.4)
[2022-12-15 07:02] LABS: BLOOD UREA NITROGEN 23 MG/DL (9-23); CALCIUM LEVEL 8.1 MG/DL (8.3-10.6); CARBON DIOXIDE LEVEL 39 MMOL/L (20-31); CHLORIDE LEVEL 105 MMOL/L (98-107); CREATININE FOR GFR 0.76 MG/DL (0.55-1.30); GLOMERULAR FILTRATION RATE > 60.0 (>45); GLUCOSE, FASTING 143 MG/DL (74-106); POTASSIUM SERUM 4.3 MMOL/L (3.5-5.1); SODIUM LEVEL 147 MMOL/L (136-145)
[2022-12-15 07:34] VITALS: BP 97/51
[2022-12-15] MEDS ORDERED: DIGOXIN 0.25 MG TAB PO SCH (09:00)
[2022-12-15] MEDS: traMADol 50 MG TAB PO PRN ×3 (09:16→21:21)
[2022-12-15] MEDS: NYSTATIN CREAM 15GM TOP PRN (09:17)
[2022-12-15] MEDS: INSULIN LISPRO (NovoLOG) PER UNIT SC SCH ×4 (09:17→21:00)
[2022-12-15] MEDS: VANICREAM MOISTURIZING SKIN CREAM 113GM TUBE TOP SCH (09:18)
[2022-12-15] MEDS: SODIUM CHLORIDE NASAL 0.65% SPRAY BTL (OCEAN) SCH ×2 (09:18→21:22)
[2022-12-15] MEDS: LIDOCAINE 5% (LIDODERM) PATCH TD SCH (09:18)
[2022-12-15] MEDS: NICOTINE 21MG/24HR 1 EA TRANSDERMAL TD SCH (09:18)
[2022-12-15] MEDS: SERTRALINE HCL 25 MG TABLET PO SCH (09:24)
[2022-12-15] MEDS: METOPROLOL TART 50 MG TAB PO SCH ×2 (09:24→21:22)
[2022-12-15] MEDS: GABAPENTIN 100 MG CAP PO SCH ×3 (09:24→21:21)
[2022-12-15] MEDS: FAMOTIDINE 20 MG TAB PO SCH (09:24)
[2022-12-15] MEDS: MAGNESIUM OXIDE 400MG TAB (MAG-OX) PO SCH ×2 (09:25→21:22)
[2022-12-15] MEDS: POTASSIUM CHLORIDE 10MEQ SR TABLET PO SCH (09:25)
[2022-12-15] MEDS: ASPIRIN 81MG ENTERIC TABLET PO SCH (09:25)
[2022-12-15] MEDS: ATORVASTATIN 20 MG TAB PO SCH (09:26)
[2022-12-15] MEDS: DIGOXIN 0.25 MG TAB PO SCH (09:26)
[2022-12-15] MEDS: APIXABAN 5 MG TAB (ELIQUIS) PO SCH ×2 (09:26→21:21)
[2022-12-15] MEDS: TORSEMIDE 10 MG TABLET PO SCH (09:26)
[2022-12-15] MEDS: SIMETHICONE 80MG CHEW TAB PO PRN ×2 (12:07→21:23)
[2022-12-15] MEDS: MAG SULF 1GM/100ML (MAG RUN) 1 GM in IV 1 EA IV SCH ×3 (15:39→17:52)
[2022-12-15 19:46] VITALS: BP 107/56
[2022-12-15] MEDS: QUEtiapine FUMARATE **XR** 200MG TABLET PO SCH (21:21)
[2022-12-16] MEDS: LACTULOSE 20GM/30ML SYRUP UDC PO SCH ×3 (04:49→15:42)
[2022-12-16 06:02] LABS: BASO % 0.5 % (0.0-1.0); EOS # 0.1 10^3/uL (0.0-0.5); EOS % 1.3 % (0.0-3.0); HEMATOCRIT 37.9 % (36.0-47.0); HEMOGLOBIN 10.2 g/dl (12.0-15.5); LYMPH # 1.6 10^3/uL (1.5-5.0); LYMPH % 21.8 % (24.0-44.0); MEAN CORPUSCULAR HEMOGLOBIN 24.1 pg (27.0-33.0); MEAN CORPUSCULAR HGB CONC 26.9 g/dl (32.0-36.5); MEAN CORPUSCULAR VOLUME 89.4 fl (80.0-96.0); MONO # 0.7 10^3/uL (0.0-0.8); NEUTROPHILS # 5.1 10^3/uL (1.5-8.5); NEUTROPHILS % 67.1 % (36.0-66.0); PLATELET COUNT, AUTOMATED 195 10^3/uL (150-450); RED BLOOD COUNT 4.24 10^6/uL (4.00-5.40); WHITE BLOOD COUNT 7.5 10^3/uL (4.0-10.0)
[2022-12-16 06:19] LABS: MAGNESIUM LEVEL 1.8 MG/DL (1.8-2.4)
[2022-12-16 06:20] LABS: BLOOD UREA NITROGEN 25 MG/DL (9-23); CALCIUM LEVEL 7.8 MG/DL (8.3-10.6); CARBON DIOXIDE LEVEL 34 MMOL/L (20-31); CHLORIDE LEVEL 105 MMOL/L (98-107); CREATININE FOR GFR 0.78 MG/DL (0.55-1.30); GLOMERULAR FILTRATION RATE > 60.0 (>45); GLUCOSE, FASTING 103 MG/DL (74-106); POTASSIUM SERUM 4.6 MMOL/L (3.5-5.1); SODIUM LEVEL 144 MMOL/L (136-145)
[2022-12-16] MEDS: INSULIN LISPRO (NovoLOG) PER UNIT SC SCH ×4 (07:30→19:37)
[2022-12-16 08:00] VITALS: BP 110/50
[2022-12-16] MEDS: NICOTINE 21MG/24HR 1 EA TRANSDERMAL TD SCH (09:05)
[2022-12-16] MEDS: LIDOCAINE 5% (LIDODERM) PATCH TD SCH (09:05)
[2022-12-16] MEDS: ASPIRIN 81MG ENTERIC TABLET PO SCH (09:06)
[2022-12-16] MEDS: METOPROLOL TART 50 MG TAB PO SCH ×2 (09:06→20:54)
[2022-12-16] MEDS: APIXABAN 5 MG TAB (ELIQUIS) PO SCH ×2 (09:08→20:53)
[2022-12-16] MEDS: SERTRALINE HCL 25 MG TABLET PO SCH (09:08)
[2022-12-16] MEDS: DIGOXIN 0.25 MG TAB PO SCH (09:08)
[2022-12-16] MEDS: traMADol 50 MG TAB PO PRN ×2 (09:09→22:25)
[2022-12-16] MEDS: MAGNESIUM OXIDE 400MG TAB (MAG-OX) PO SCH ×2 (09:10→20:54)
[2022-12-16] MEDS: ATORVASTATIN 20 MG TAB PO SCH (09:10)
[2022-12-16] MEDS: TORSEMIDE 10 MG TABLET PO SCH (09:11)
[2022-12-16] MEDS: GABAPENTIN 100 MG CAP PO SCH ×3 (09:11→20:54)
[2022-12-16] MEDS: SODIUM CHLORIDE NASAL 0.65% SPRAY BTL (OCEAN) SCH ×2 (09:11→20:54)
[2022-12-16] MEDS: FAMOTIDINE 20 MG TAB PO SCH (09:11)
[2022-12-16] MEDS: POTASSIUM CHLORIDE 10MEQ SR TABLET PO SCH (09:11)
[2022-12-16] MEDS: VANICREAM MOISTURIZING SKIN CREAM 113GM TUBE TOP SCH (09:13)
[2022-12-16 19:55] VITALS: BP 126/73
[2022-12-16 20:00] VITALS: BP 126/73
[2022-12-16] MEDS: QUEtiapine FUMARATE **XR** 200MG TABLET PO SCH (20:54)
[2022-12-17 05:51] LABS: BASO # 0.1 10^3/uL (0.0-0.2); BASO % 0.6 % (0.0-1.0); EOS # 0.2 10^3/uL (0.0-0.5); EOS % 1.9 % (0.0-3.0); HEMATOCRIT 38.2 % (36.0-47.0); HEMOGLOBIN 10.5 g/dl (12.0-15.5); LYMPH # 1.9 10^3/uL (1.5-5.0); LYMPH % 24.7 % (24.0-44.0); MEAN CORPUSCULAR HEMOGLOBIN 24.5 pg (27.0-33.0); MEAN CORPUSCULAR HGB CONC 27.5 g/dl (32.0-36.5); MONO # 0.7 10^3/uL (0.0-0.8); MONO % 9.4 % (2.0-8.0); NEUTROPHILS # 4.9 10^3/uL (1.5-8.5); PLATELET COUNT, AUTOMATED 197 10^3/uL (150-450); RED BLOOD COUNT 4.29 10^6/uL (4.00-5.40); WHITE BLOOD COUNT 7.8 10^3/uL (4.0-10.0)
[2022-12-17 06:15] LABS: MAGNESIUM LEVEL 1.8 MG/DL (1.8-2.4)
[2022-12-17] MEDS: LACTULOSE 20GM/30ML SYRUP UDC PO SCH ×5 (06:15→23:38)
[2022-12-17 06:17] LABS: BLOOD UREA NITROGEN 26 MG/DL (9-23); CARBON DIOXIDE LEVEL 36 MMOL/L (20-31); CHLORIDE LEVEL 103 MMOL/L (98-107); CREATININE FOR GFR 0.78 MG/DL (0.55-1.30); GLOMERULAR FILTRATION RATE > 60.0 (>45); GLUCOSE, FASTING 97 MG/DL (74-106); POTASSIUM SERUM 4.6 MMOL/L (3.5-5.1); SODIUM LEVEL 143 MMOL/L (136-145)
[2022-12-17] MEDS: INSULIN LISPRO (NovoLOG) PER UNIT SC SCH ×4 (07:30→21:00)
[2022-12-17 07:49] VITALS: BP 112/55
[2022-12-17] MEDS: LIDOCAINE 5% (LIDODERM) PATCH TD SCH (08:51)
[2022-12-17] MEDS: NICOTINE 21MG/24HR 1 EA TRANSDERMAL TD SCH (08:51)
[2022-12-17] MEDS: SERTRALINE HCL 25 MG TABLET PO SCH (08:52)
[2022-12-17] MEDS: METOPROLOL TART 50 MG TAB PO SCH ×2 (08:52→21:19)
[2022-12-17] MEDS: ASPIRIN 81MG ENTERIC TABLET PO SCH (08:52)
[2022-12-17] MEDS: ATORVASTATIN 20 MG TAB PO SCH (08:54)
[2022-12-17] MEDS: MAGNESIUM OXIDE 400MG TAB (MAG-OX) PO SCH ×2 (08:54→21:15)
[2022-12-17] MEDS: DIGOXIN 0.25 MG TAB PO SCH (08:54)
[2022-12-17] MEDS: POTASSIUM CHLORIDE 10MEQ SR TABLET PO SCH (08:55)
[2022-12-17] MEDS: GABAPENTIN 100 MG CAP PO SCH ×3 (08:55→21:17)
[2022-12-17] MEDS: FAMOTIDINE 20 MG TAB PO SCH (08:55)
[2022-12-17] MEDS: TORSEMIDE 10 MG TABLET PO SCH (08:55)
[2022-12-17] MEDS: APIXABAN 5 MG TAB (ELIQUIS) PO SCH ×2 (08:55→21:17)
[2022-12-17] MEDS: traMADol 50 MG TAB PO PRN ×2 (08:56→17:12)
[2022-12-17] MEDS: SODIUM CHLORIDE NASAL 0.65% SPRAY BTL (OCEAN) SCH ×2 (08:56→21:15)
[2022-12-17] MEDS: VANICREAM MOISTURIZING SKIN CREAM 113GM TUBE TOP SCH (08:57)
[2022-12-17 18:35] VITALS: BP 120/72
[2022-12-17] MEDS: QUEtiapine FUMARATE **XR** 200MG TABLET PO SCH (21:16)
[2022-12-18 05:07] VITALS: BP 117/75
[2022-12-18] MEDS: LACTULOSE 20GM/30ML SYRUP UDC PO SCH ×4 (06:37→23:43)
[2022-12-18] MEDS: INSULIN LISPRO (NovoLOG) PER UNIT SC SCH ×4 (07:11→21:00)
[2022-12-18] MEDS: traMADol 50 MG TAB PO PRN ×2 (07:52→21:49)
[2022-12-18] MEDS: MAGNESIUM OXIDE 400MG TAB (MAG-OX) PO SCH ×2 (10:07→21:48)
[2022-12-18] MEDS: GABAPENTIN 100 MG CAP PO SCH ×3 (10:08→21:47)
[2022-12-18] MEDS: ATORVASTATIN 20 MG TAB PO SCH (10:08)
[2022-12-18] MEDS: ASPIRIN 81MG ENTERIC TABLET PO SCH (10:08)
[2022-12-18] MEDS: FAMOTIDINE 20 MG TAB PO SCH (10:09)
[2022-12-18] MEDS: SERTRALINE HCL 25 MG TABLET PO SCH (10:09)
[2022-12-18] MEDS: POTASSIUM CHLORIDE 10MEQ SR TABLET PO SCH (10:09)
[2022-12-18] MEDS: METOPROLOL TART 50 MG TAB PO SCH ×2 (10:10→21:49)
[2022-12-18] MEDS: APIXABAN 5 MG TAB (ELIQUIS) PO SCH ×2 (10:11→21:49)
[2022-12-18] MEDS: TORSEMIDE 10 MG TABLET PO SCH (10:11)
[2022-12-18] MEDS: NICOTINE 21MG/24HR 1 EA TRANSDERMAL TD SCH (10:12)
[2022-12-18] MEDS: LIDOCAINE 5% (LIDODERM) PATCH TD SCH (10:12)
[2022-12-18] MEDS: SODIUM CHLORIDE NASAL 0.65% SPRAY BTL (OCEAN) SCH ×2 (10:20→22:21)
[2022-12-18] MEDS: VANICREAM MOISTURIZING SKIN CREAM 113GM TUBE TOP SCH (10:24)
[2022-12-18] MEDS: DIGOXIN 0.25 MG TAB PO SCH (10:24)
[2022-12-18] MEDS: QUEtiapine FUMARATE **XR** 200MG TABLET PO SCH (21:47)
[2022-12-19 06:00] VITALS: BP 124/74
[2022-12-19] MEDS: LACTULOSE 20GM/30ML SYRUP UDC PO SCH ×4 (06:00→23:46)
[2022-12-19] MEDS: MAGNESIUM OXIDE 400MG TAB (MAG-OX) PO SCH ×2 (09:00→21:56)
[2022-12-19] MEDS: VANICREAM MOISTURIZING SKIN CREAM 113GM TUBE TOP SCH (09:00)
[2022-12-19] MEDS: SODIUM CHLORIDE NASAL 0.65% SPRAY BTL (OCEAN) SCH ×2 (09:00→21:57)
[2022-12-19] MEDS: ATORVASTATIN 20 MG TAB PO SCH (09:58)
[2022-12-19] MEDS: FAMOTIDINE 20 MG TAB PO SCH (09:58)
[2022-12-19] MEDS: TORSEMIDE 10 MG TABLET PO SCH (09:58)
[2022-12-19] MEDS: METOPROLOL TART 50 MG TAB PO SCH ×2 (09:59→21:55)
[2022-12-19] MEDS: SERTRALINE HCL 25 MG TABLET PO SCH (09:59)
[2022-12-19] MEDS: ASPIRIN 81MG ENTERIC TABLET PO SCH (09:59)
[2022-12-19] MEDS: DIGOXIN 0.25 MG TAB PO SCH (09:59)
[2022-12-19] MEDS: GABAPENTIN 100 MG CAP PO SCH ×3 (10:00→21:55)
[2022-12-19] MEDS: POTASSIUM CHLORIDE 10MEQ SR TABLET PO SCH (10:00)
[2022-12-19] MEDS: APIXABAN 5 MG TAB (ELIQUIS) PO SCH ×2 (10:00→21:55)
[2022-12-19] MEDS: NICOTINE 21MG/24HR 1 EA TRANSDERMAL TD SCH (10:01)
[2022-12-19] MEDS: LIDOCAINE 5% (LIDODERM) PATCH TD SCH (10:01)
[2022-12-19] MEDS: INSULIN LISPRO (NovoLOG) PER UNIT SC SCH ×4 (10:02→21:00)
[2022-12-19] MEDS: traMADol 50 MG TAB PO PRN ×3 (10:12→23:49)
[2022-12-19] MEDS: QUEtiapine FUMARATE **XR** 200MG TABLET PO SCH (21:56)
[2022-12-20] MEDS: LACTULOSE 20GM/30ML SYRUP UDC PO SCH ×4 (05:11→23:47)
[2022-12-20 06:04] VITALS: BP 101/68
[2022-12-20] MEDS: INSULIN LISPRO (NovoLOG) PER UNIT SC SCH ×4 (07:30→21:00)
[2022-12-20] MEDS: LIDOCAINE 5% (LIDODERM) PATCH TD SCH (08:50)
[2022-12-20] MEDS: NICOTINE 21MG/24HR 1 EA TRANSDERMAL TD SCH (08:51)
[2022-12-20] MEDS: traMADol 50 MG TAB PO PRN ×2 (08:52→18:09)
[2022-12-20] MEDS: GABAPENTIN 100 MG CAP PO SCH ×3 (08:52→21:03)
[2022-12-20] MEDS: APIXABAN 5 MG TAB (ELIQUIS) PO SCH ×2 (08:53→21:03)
[2022-12-20] MEDS: ASPIRIN 81MG ENTERIC TABLET PO SCH (08:53)
[2022-12-20] MEDS: SERTRALINE HCL 25 MG TABLET PO SCH (08:53)
[2022-12-20] MEDS: TORSEMIDE 10 MG TABLET PO SCH (08:54)
[2022-12-20] MEDS: ATORVASTATIN 20 MG TAB PO SCH (08:54)
[2022-12-20] MEDS: FAMOTIDINE 20 MG TAB PO SCH (08:54)
[2022-12-20] MEDS: METOPROLOL TART 50 MG TAB PO SCH ×2 (08:55→21:03)
[2022-12-20] MEDS: POTASSIUM CHLORIDE 10MEQ SR TABLET PO SCH (08:56)
[2022-12-20] MEDS: MAGNESIUM OXIDE 400MG TAB (MAG-OX) PO SCH ×2 (08:56→21:02)
[2022-12-20] MEDS: SODIUM CHLORIDE NASAL 0.65% SPRAY BTL (OCEAN) SCH ×2 (08:56→21:05)
[2022-12-20] MEDS: VANICREAM MOISTURIZING SKIN CREAM 113GM TUBE TOP SCH (08:56)
[2022-12-20] MEDS: DIGOXIN 0.25 MG TAB PO SCH (09:00)
[2022-12-20] MEDS: ADVAIR HFA 45/21MCG INHALER INH SCH ×2 (14:00→20:21)
[2022-12-20] MEDS ORDERED: FLUTICASONE HFA 110MCG 12GM INHALER (FLOVENT) INH SCH (21:00)
[2022-12-20] MEDS: QUEtiapine FUMARATE **XR** 200MG TABLET PO SCH (21:02)
[2022-12-21] MEDS: LACTULOSE 20GM/30ML SYRUP UDC PO SCH ×3 (04:55→17:32)
[2022-12-21 06:00] VITALS: BP 105/73
[2022-12-21] MEDS: INSULIN LISPRO (NovoLOG) PER UNIT SC SCH ×4 (07:30→21:00)
[2022-12-21] MEDS: ADVAIR HFA 45/21MCG INHALER INH SCH ×2 (07:34→19:35)
[2022-12-21] MEDS: MAGNESIUM OXIDE 400MG TAB (MAG-OX) PO SCH ×2 (08:42→21:17)
[2022-12-21] MEDS: ASPIRIN 81MG ENTERIC TABLET PO SCH (08:43)
[2022-12-21] MEDS: DIGOXIN 0.25 MG TAB PO SCH (08:43)
[2022-12-21] MEDS: ATORVASTATIN 20 MG TAB PO SCH (08:43)
[2022-12-21] MEDS: POTASSIUM CHLORIDE 10MEQ SR TABLET PO SCH (08:43)
[2022-12-21] MEDS: GABAPENTIN 100 MG CAP PO SCH ×3 (08:44→21:17)
[2022-12-21] MEDS: SERTRALINE HCL 25 MG TABLET PO SCH (08:44)
[2022-12-21] MEDS: APIXABAN 5 MG TAB (ELIQUIS) PO SCH ×2 (08:44→21:17)
[2022-12-21] MEDS: TORSEMIDE 10 MG TABLET PO SCH (08:44)
[2022-12-21] MEDS: FAMOTIDINE 20 MG TAB PO SCH (08:44)
[2022-12-21] MEDS: METOPROLOL TART 50 MG TAB PO SCH ×2 (08:45→21:20)
[2022-12-21] MEDS: NICOTINE 21MG/24HR 1 EA TRANSDERMAL TD SCH (08:45)
[2022-12-21] MEDS: VANICREAM MOISTURIZING SKIN CREAM 113GM TUBE TOP SCH (08:46)
[2022-12-21] MEDS: LIDOCAINE 5% (LIDODERM) PATCH TD SCH (08:46)
[2022-12-21] MEDS: SODIUM CHLORIDE NASAL 0.65% SPRAY BTL (OCEAN) SCH ×2 (08:47→21:24)
[2022-12-21] MEDS: traMADol 50 MG TAB PO PRN (12:21)
[2022-12-21] MEDS ORDERED: LACTULOSE 20GM/30ML SYRUP UDC PO PRN (17:45)
[2022-12-21] MEDS: QUEtiapine FUMARATE **XR** 200MG TABLET PO SCH (21:20)
[2022-12-21] MEDS: NORCO, ANEXSIA 5/325MG TABLET (HYDROcodone/ACETAMINOPHEN) PO PRN (21:21)
[2022-12-22 06:00] VITALS: BP 93/60
[2022-12-22] MEDS: NORCO, ANEXSIA 5/325MG TABLET (HYDROcodone/ACETAMINOPHEN) PO PRN ×2 (06:19→17:11)
[2022-12-22] MEDS: INSULIN LISPRO (NovoLOG) PER UNIT SC SCH ×4 (07:30→21:00)
[2022-12-22] MEDS: ADVAIR HFA 45/21MCG INHALER INH SCH ×2 (07:32→20:17)
[2022-12-22 07:49] LABS: BLOOD UREA NITROGEN 18 MG/DL (9-23); CARBON DIOXIDE LEVEL > 40.0 MMOL/L (20-31); CHLORIDE LEVEL 103 MMOL/L (98-107); CREATININE FOR GFR 0.78 MG/DL (0.55-1.30); GLOMERULAR FILTRATION RATE > 60.0 (>45); GLUCOSE, FASTING 83 MG/DL (74-106); POTASSIUM SERUM 4.5 MMOL/L (3.5-5.1); SODIUM LEVEL 145 MMOL/L (136-145)
[2022-12-22 09:00] VITALS: BP 96/59
[2022-12-22] MEDS: NICOTINE 21MG/24HR 1 EA TRANSDERMAL TD SCH (10:03)
[2022-12-22] MEDS: ASPIRIN 81MG ENTERIC TABLET PO SCH (10:07)
[2022-12-22] MEDS: ATORVASTATIN 20 MG TAB PO SCH (10:07)
[2022-12-22] MEDS: POTASSIUM CHLORIDE 10MEQ SR TABLET PO SCH (10:07)
[2022-12-22] MEDS: GABAPENTIN 100 MG CAP PO SCH ×3 (10:08→21:31)
[2022-12-22] MEDS: FAMOTIDINE 20 MG TAB PO SCH (10:08)
[2022-12-22] MEDS: SERTRALINE HCL 25 MG TABLET PO SCH (10:08)
[2022-12-22] MEDS: MAGNESIUM OXIDE 400MG TAB (MAG-OX) PO SCH ×2 (10:09→21:31)
[2022-12-22] MEDS: APIXABAN 5 MG TAB (ELIQUIS) PO SCH ×2 (10:09→21:31)
[2022-12-22] MEDS: TORSEMIDE 10 MG TABLET PO SCH (10:09)
[2022-12-22] MEDS: LIDOCAINE 5% (LIDODERM) PATCH TD SCH (10:10)
[2022-12-22] MEDS: VANICREAM MOISTURIZING SKIN CREAM 113GM TUBE TOP SCH (10:10)
[2022-12-22] MEDS: SODIUM CHLORIDE NASAL 0.65% SPRAY BTL (OCEAN) SCH ×2 (10:10→21:32)
[2022-12-22] MEDS: DIGOXIN 0.25 MG TAB PO SCH (10:14)
[2022-12-22] MEDS: METOPROLOL TART 50 MG TAB PO SCH ×2 (10:14→21:31)
[2022-12-22] MEDS: QUEtiapine FUMARATE **XR** 200MG TABLET PO SCH (21:32)
[2022-12-22 22:26] VITALS: O2SAT 90
[2022-12-23 06:00] VITALS: BP 112/66
[2022-12-23] MEDS: NORCO, ANEXSIA 5/325MG TABLET (HYDROcodone/ACETAMINOPHEN) PO PRN ×2 (06:06→21:27)
[2022-12-23] MEDS: INSULIN LISPRO (NovoLOG) PER UNIT SC SCH ×4 (07:04→21:00)
[2022-12-23] MEDS: ADVAIR HFA 45/21MCG INHALER INH SCH ×2 (08:04→20:22)
[2022-12-23] MEDS: VANICREAM MOISTURIZING SKIN CREAM 113GM TUBE TOP SCH (08:57)
[2022-12-23] MEDS: ATORVASTATIN 20 MG TAB PO SCH (08:58)
[2022-12-23] MEDS: GABAPENTIN 100 MG CAP PO SCH ×3 (08:58→21:18)
[2022-12-23] MEDS: ASPIRIN 81MG ENTERIC TABLET PO SCH (08:58)
[2022-12-23] MEDS: NICOTINE 21MG/24HR 1 EA TRANSDERMAL TD SCH (08:58)
[2022-12-23] MEDS: DIGOXIN 0.25 MG TAB PO SCH (08:59)
[2022-12-23] MEDS: SERTRALINE HCL 25 MG TABLET PO SCH (08:59)
[2022-12-23] MEDS: POTASSIUM CHLORIDE 10MEQ SR TABLET PO SCH (08:59)
[2022-12-23] MEDS: APIXABAN 5 MG TAB (ELIQUIS) PO SCH ×2 (08:59→21:18)
[2022-12-23] MEDS: MAGNESIUM OXIDE 400MG TAB (MAG-OX) PO SCH ×2 (08:59→21:19)
[2022-12-23] MEDS: FAMOTIDINE 20 MG TAB PO SCH (08:59)
[2022-12-23] MEDS: TORSEMIDE 10 MG TABLET PO SCH (09:00)
[2022-12-23] MEDS: LIDOCAINE 5% (LIDODERM) PATCH TD SCH (09:00)
[2022-12-23] MEDS: METOPROLOL TART 50 MG TAB PO SCH ×2 (09:05→21:20)
[2022-12-23] MEDS: SODIUM CHLORIDE NASAL 0.65% SPRAY BTL (OCEAN) SCH ×2 (09:10→21:21)
[2022-12-23] MEDS: traMADol 50 MG TAB PO PRN (17:11)
[2022-12-23 20:00] VITALS: O2SAT 92
[2022-12-23] MEDS: QUEtiapine FUMARATE **XR** 200MG TABLET PO SCH (21:19)
[2022-12-23 21:25] VITALS: BP 118/73
[2022-12-24 05:55] VITALS: BP 97/68
[2022-12-24] MEDS: INSULIN LISPRO (NovoLOG) PER UNIT SC SCH ×4 (07:30→20:37)
[2022-12-24] MEDS: ADVAIR HFA 45/21MCG INHALER INH SCH ×2 (07:31→19:22)
[2022-12-24] MEDS: GABAPENTIN 100 MG CAP PO SCH ×3 (09:56→20:35)
[2022-12-24] MEDS: DIGOXIN 0.25 MG TAB PO SCH (09:56)
[2022-12-24] MEDS: POTASSIUM CHLORIDE 10MEQ SR TABLET PO SCH (09:56)
[2022-12-24] MEDS: ATORVASTATIN 20 MG TAB PO SCH (09:56)
[2022-12-24] MEDS: FAMOTIDINE 20 MG TAB PO SCH (09:56)
[2022-12-24] MEDS: SERTRALINE HCL 25 MG TABLET PO SCH (09:56)
[2022-12-24] MEDS: ASPIRIN 81MG ENTERIC TABLET PO SCH (09:56)
[2022-12-24] MEDS: APIXABAN 5 MG TAB (ELIQUIS) PO SCH ×2 (09:56→20:35)
[2022-12-24] MEDS: MAGNESIUM OXIDE 400MG TAB (MAG-OX) PO SCH ×2 (09:57→20:36)
[2022-12-24] MEDS: TORSEMIDE 10 MG TABLET PO SCH (09:57)
[2022-12-24] MEDS: METOPROLOL TART 50 MG TAB PO SCH ×2 (09:57→20:36)
[2022-12-24] MEDS: NICOTINE 21MG/24HR 1 EA TRANSDERMAL TD SCH (09:58)
[2022-12-24] MEDS: SODIUM CHLORIDE NASAL 0.65% SPRAY BTL (OCEAN) SCH ×2 (09:58→21:48)
[2022-12-24] MEDS: LIDOCAINE 5% (LIDODERM) PATCH TD SCH (09:58)
[2022-12-24] MEDS: VANICREAM MOISTURIZING SKIN CREAM 113GM TUBE TOP SCH (09:58)
[2022-12-24] MEDS: traMADol 50 MG TAB PO PRN (10:10)
[2022-12-24 10:57] VITALS: BP 104/58
[2022-12-24 11:09] LABS: BASO % 0.5 % (0.0-1.0); EOS # 0.2 10^3/uL (0.0-0.5); EOS % 2.7 % (0.0-3.0); HEMATOCRIT 37.1 % (36.0-47.0); LYMPH # 1.1 10^3/uL (1.5-5.0); LYMPH % 19.2 % (24.0-44.0); MEAN CORPUSCULAR HEMOGLOBIN 24.8 pg (27.0-33.0); MEAN CORPUSCULAR VOLUME 91.8 fl (80.0-96.0); MONO # 0.4 10^3/uL (0.0-0.8); MONO % 7.1 % (2.0-8.0); NEUTROPHILS # 4.2 10^3/uL (1.5-8.5); NEUTROPHILS % 70.2 % (36.0-66.0); PLATELET COUNT, AUTOMATED 173 10^3/uL (150-450); RED BLOOD COUNT 4.04 10^6/uL (4.00-5.40)
[2022-12-24 11:44] LABS: DIGOXIN LEVEL 1.3 NG/ML (0.8-2.0)
[2022-12-24 11:53] LABS: ALBUMIN 2.2 G/DL (3.2-5.2); ALKALINE PHOSPHATASE 105 U/L (46-116); ALT/SGPT 13 U/L (7.0-40); AST/SGOT 22 U/L (<34); BILIRUBIN,TOTAL 0.7 MG/DL (0.3-1.2); BLOOD UREA NITROGEN 16 MG/DL (9-23); CARBON DIOXIDE LEVEL > 40.0 MMOL/L (20-31); CHLORIDE LEVEL 103 MMOL/L (98-107); GLOMERULAR FILTRATION RATE > 60.0 (>45); GLUCOSE, FASTING 134 MG/DL (74-106); POTASSIUM SERUM 4.2 MMOL/L (3.5-5.1); SODIUM LEVEL 144 MMOL/L (136-145)
[2022-12-24 13:44] LABS: VENOUS BASE EXCESS 15.9 (-2.0-2.0); VENOUS HCO3 43.5 MEQ/L (23.0-27.0); VENOUS O2 SATURATION 94.2 % (60.0-80.0); VENOUS PARTIAL PRESSURE CO2 68.9 mmHg (38.0-50.0); VENOUS PARTIAL PRESSURE O2 73.4 mmHg (30.0-50.0); VENOUS PH 7.418 UNITS (7.330-7.430); VENOUS STANDARD HCO3 39.7 MEQ/L; VENOUS TOTAL CO2 45.6 MEQ/L (24.0-28.0)
[2022-12-24] MEDS ORDERED: LIDOCAINE 1% MDV 20ML VIAL As Ordered ONE (14:03)
[2022-12-24 15:33] VITALS: BP 101/64
[2022-12-24] MEDS: SODIUM CHLORIDE 0.9% INJ 10 ML SYR IV SCH (16:43)
[2022-12-24] MEDS: BUMETANIDE 1MG/4ML VIAL IV SCH (16:43)
[2022-12-24] MEDS ORDERED: TORSEMIDE 20 MG TAB PO SCH (17:00)
[2022-12-24 20:13] VITALS: BP 117/87
[2022-12-24] MEDS: NORCO, ANEXSIA 5/325MG TABLET (HYDROcodone/ACETAMINOPHEN) PO PRN (20:36)
[2022-12-24] MEDS: QUEtiapine FUMARATE **XR** 200MG TABLET PO SCH (20:37)
[2022-12-25] MEDS: BUMETANIDE 1MG/4ML VIAL IV SCH ×4 (01:02→23:55)
[2022-12-25] MEDS: NORCO, ANEXSIA 5/325MG TABLET (HYDROcodone/ACETAMINOPHEN) PO PRN ×2 (04:36→21:22)
[2022-12-25 06:00] LABS: VENOUS BASE EXCESS 15.3 (-2.0-2.0); VENOUS O2 SATURATION 99.7 % (60.0-80.0); VENOUS PARTIAL PRESSURE CO2 55.9 mmHg (38.0-50.0); VENOUS PARTIAL PRESSURE O2 222.5 mmHg (30.0-50.0); VENOUS PH 7.483 UNITS (7.330-7.430); VENOUS STANDARD HCO3 39.2 MEQ/L; VENOUS TOTAL CO2 42.7 MEQ/L (24.0-28.0)
[2022-12-25 06:13] LABS: BASO % 0.5 % (0.0-1.0); EOS # 0.2 10^3/uL (0.0-0.5); EOS % 2.5 % (0.0-3.0); HEMATOCRIT 35.7 % (36.0-47.0); HEMOGLOBIN 9.7 g/dl (12.0-15.5); LYMPH # 1.3 10^3/uL (1.5-5.0); MEAN CORPUSCULAR HEMOGLOBIN 24.7 pg (27.0-33.0); MEAN CORPUSCULAR HGB CONC 27.2 g/dl (32.0-36.5); MEAN CORPUSCULAR VOLUME 91.1 fl (80.0-96.0); MONO # 0.5 10^3/uL (0.0-0.8); MONO % 9.1 % (2.0-8.0); NEUTROPHILS # 3.9 10^3/uL (1.5-8.5); NEUTROPHILS % 65.9 % (36.0-66.0); PLATELET COUNT, AUTOMATED 159 10^3/uL (150-450); RED BLOOD COUNT 3.92 10^6/uL (4.00-5.40); WHITE BLOOD COUNT 5.9 10^3/uL (4.0-10.0)
[2022-12-25 06:39] LABS: BLOOD UREA NITROGEN 15 MG/DL (9-23); CALCIUM LEVEL 7.8 MG/DL (8.3-10.6); CARBON DIOXIDE LEVEL > 40.0 MMOL/L (20-31); CHLORIDE LEVEL 96 MMOL/L (98-107); GLOMERULAR FILTRATION RATE > 60.0 (>45); GLUCOSE, FASTING 88 MG/DL (74-106); POTASSIUM SERUM 3.6 MMOL/L (3.5-5.1); SODIUM LEVEL 144 MMOL/L (136-145)
[2022-12-25] MEDS: SODIUM CHLORIDE 0.9% INJ 10 ML SYR IV SCH ×2 (06:40→17:28)
[2022-12-25] MEDS: traMADol 50 MG TAB PO PRN ×2 (06:43→16:47)
[2022-12-25 06:46] VITALS: BP 116/78
[2022-12-25] MEDS: INSULIN LISPRO (NovoLOG) PER UNIT SC SCH ×4 (07:30→21:00)
[2022-12-25] MEDS: ADVAIR HFA 45/21MCG INHALER INH SCH ×2 (07:49→19:59)
[2022-12-25] MEDS: METOPROLOL TART 50 MG TAB PO SCH ×2 (09:00→21:11)
[2022-12-25] MEDS: GABAPENTIN 100 MG CAP PO SCH ×3 (09:47→21:12)
[2022-12-25] MEDS: ASPIRIN 81MG ENTERIC TABLET PO SCH (09:47)
[2022-12-25] MEDS: MAGNESIUM OXIDE 400MG TAB (MAG-OX) PO SCH ×2 (09:47→21:12)
[2022-12-25] MEDS: APIXABAN 5 MG TAB (ELIQUIS) PO SCH ×2 (09:47→21:09)
[2022-12-25] MEDS: SERTRALINE HCL 25 MG TABLET PO SCH (09:48)
[2022-12-25] MEDS: DIGOXIN 0.25 MG TAB PO SCH (09:48)
[2022-12-25] MEDS: FAMOTIDINE 20 MG TAB PO SCH (09:48)
[2022-12-25] MEDS: POTASSIUM CHLORIDE 10MEQ SR TABLET PO SCH (09:49)
[2022-12-25] MEDS: SODIUM CHLORIDE NASAL 0.65% SPRAY BTL (OCEAN) SCH ×2 (09:49→21:24)
[2022-12-25] MEDS: ATORVASTATIN 20 MG TAB PO SCH (09:49)
[2022-12-25] MEDS: NICOTINE 21MG/24HR 1 EA TRANSDERMAL TD SCH (09:50)
[2022-12-25] MEDS: VANICREAM MOISTURIZING SKIN CREAM 113GM TUBE TOP SCH (09:50)
[2022-12-25] MEDS: LIDOCAINE 5% (LIDODERM) PATCH TD SCH (09:50)
[2022-12-25 14:00] VITALS: BP 129/83
[2022-12-25] MEDS: QUEtiapine FUMARATE **XR** 200MG TABLET PO SCH (21:12)
[2022-12-25 21:14] VITALS: BP 130/81
[2022-12-26] MEDS: SODIUM CHLORIDE 0.9% INJ 10 ML SYR IV SCH ×2 (05:42→17:32)
[2022-12-26 05:52] LABS: BASO % 0.4 % (0.0-1.0); EOS # 0.2 10^3/uL (0.0-0.5); EOS % 3.1 % (0.0-3.0); HEMATOCRIT 35.2 % (36.0-47.0); HEMOGLOBIN 9.7 g/dl (12.0-15.5); LYMPH # 1.4 10^3/uL (1.5-5.0); LYMPH % 24.8 % (24.0-44.0); MEAN CORPUSCULAR HGB CONC 27.6 g/dl (32.0-36.5); MEAN CORPUSCULAR VOLUME 90.7 fl (80.0-96.0); MONO # 0.5 10^3/uL (0.0-0.8); MONO % 8.6 % (2.0-8.0); NEUTROPHILS # 3.4 10^3/uL (1.5-8.5); NEUTROPHILS % 62.7 % (36.0-66.0); PLATELET COUNT, AUTOMATED 157 10^3/uL (150-450); RED BLOOD COUNT 3.88 10^6/uL (4.00-5.40); WHITE BLOOD COUNT 5.4 10^3/uL (4.0-10.0)
[2022-12-26 06:11] LABS: BLOOD UREA NITROGEN 12 MG/DL (9-23); CALCIUM LEVEL 7.9 MG/DL (8.3-10.6); CARBON DIOXIDE LEVEL > 40.0 MMOL/L (20-31); CHLORIDE LEVEL 94 MMOL/L (98-107); CREATININE FOR GFR 0.67 MG/DL (0.55-1.30); GLOMERULAR FILTRATION RATE > 60.0 (>45); GLUCOSE, FASTING 83 MG/DL (74-106); POTASSIUM SERUM 3.4 MMOL/L (3.5-5.1); SODIUM LEVEL 144 MMOL/L (136-145)
[2022-12-26 06:46] VITALS: BP 107/67
[2022-12-26] MEDS: INSULIN LISPRO (NovoLOG) PER UNIT SC SCH ×4 (06:52→21:00)
[2022-12-26] MEDS: traMADol 50 MG TAB PO PRN ×2 (07:39→20:16)
[2022-12-26] MEDS: SODIUM CHLORIDE 0.9% INJ 10 ML SYR IV PRN ×2 (07:41→09:13)
[2022-12-26] MEDS: ADVAIR HFA 45/21MCG INHALER INH SCH ×2 (07:47→20:57)
[2022-12-26 07:53] LABS: VENOUS BASE EXCESS 18.5 (-2.0-2.0); VENOUS HCO3 46.6 MEQ/L (23.0-27.0); VENOUS O2 SATURATION 59.6 % (60.0-80.0); VENOUS PARTIAL PRESSURE CO2 74.7 mmHg (38.0-50.0); VENOUS PARTIAL PRESSURE O2 33.5 mmHg (30.0-50.0); VENOUS PH 7.413 UNITS (7.330-7.430); VENOUS STANDARD HCO3 41.7 MEQ/L; VENOUS TOTAL CO2 48.9 MEQ/L (24.0-28.0)
[2022-12-26] MEDS: BUMETANIDE 1MG/4ML VIAL IV SCH ×2 (08:57→17:32)
[2022-12-26] MEDS: SERTRALINE HCL 25 MG TABLET PO SCH (08:58)
[2022-12-26] MEDS: POTASSIUM CHLORIDE 10MEQ SR TABLET PO SCH ×2 (08:58→20:15)
[2022-12-26] MEDS: MAGNESIUM OXIDE 400MG TAB (MAG-OX) PO SCH ×2 (08:59→20:14)
[2022-12-26] MEDS: ATORVASTATIN 20 MG TAB PO SCH (08:59)
[2022-12-26] MEDS: METOPROLOL TART 50 MG TAB PO SCH ×2 (09:00→20:18)
[2022-12-26] MEDS: DIGOXIN 0.25 MG TAB PO SCH (09:00)
[2022-12-26] MEDS: APIXABAN 5 MG TAB (ELIQUIS) PO SCH ×2 (09:01→20:16)
[2022-12-26] MEDS: ASPIRIN 81MG ENTERIC TABLET PO SCH (09:01)
[2022-12-26] MEDS: LIDOCAINE 5% (LIDODERM) PATCH TD SCH (09:02)
[2022-12-26] MEDS: FAMOTIDINE 20 MG TAB PO SCH (09:02)
[2022-12-26] MEDS: GABAPENTIN 100 MG CAP PO SCH ×3 (09:03→20:14)
[2022-12-26] MEDS: NICOTINE 21MG/24HR 1 EA TRANSDERMAL TD SCH (09:05)
[2022-12-26] MEDS: VANICREAM MOISTURIZING SKIN CREAM 113GM TUBE TOP SCH (09:05)
[2022-12-26] MEDS: SODIUM CHLORIDE NASAL 0.65% SPRAY BTL (OCEAN) SCH ×2 (09:09→20:21)
[2022-12-26] MEDS: NORCO, ANEXSIA 5/325MG TABLET (HYDROcodone/ACETAMINOPHEN) PO PRN (12:22)
[2022-12-26] MEDS ORDERED: POTASSIUM CHLORIDE 10MEQ SR TABLET PO ONE (13:00)
[2022-12-26 15:00] VITALS: BP 102/51
[2022-12-26 20:11] VITALS: BP 107/67
[2022-12-26] MEDS: QUEtiapine FUMARATE **XR** 200MG TABLET PO SCH (20:16)
[2022-12-27] MEDS: BUMETANIDE 1MG/4ML VIAL IV SCH ×3 (00:25→17:12)
[2022-12-27] MEDS: SODIUM CHLORIDE 0.9% INJ 10 ML SYR IV PRN ×2 (01:08→07:53)
[2022-12-27 05:37] LABS: VENOUS BASE EXCESS 17.7 (-2.0-2.0); VENOUS HCO3 44.3 MEQ/L (23.0-27.0); VENOUS PARTIAL PRESSURE CO2 63.3 mmHg (38.0-50.0); VENOUS PARTIAL PRESSURE O2 108.5 mmHg (30.0-50.0); VENOUS PH 7.463 UNITS (7.330-7.430); VENOUS STANDARD HCO3 41.7 MEQ/L; VENOUS TOTAL CO2 46.3 MEQ/L (24.0-28.0)
[2022-12-27 05:55] LABS: BASO % 0.5 % (0.0-1.0); EOS # 0.2 10^3/uL (0.0-0.5); EOS % 3.3 % (0.0-3.0); HEMATOCRIT 35.7 % (36.0-47.0); HEMOGLOBIN 9.7 g/dl (12.0-15.5); LYMPH # 1.5 10^3/uL (1.5-5.0); LYMPH % 26.6 % (24.0-44.0); MEAN CORPUSCULAR HEMOGLOBIN 24.8 pg (27.0-33.0); MEAN CORPUSCULAR HGB CONC 27.2 g/dl (32.0-36.5); MEAN CORPUSCULAR VOLUME 91.3 fl (80.0-96.0); MONO # 0.5 10^3/uL (0.0-0.8); MONO % 8.5 % (2.0-8.0); NEUTROPHILS # 3.4 10^3/uL (1.5-8.5); NEUTROPHILS % 60.6 % (36.0-66.0); PLATELET COUNT, AUTOMATED 167 10^3/uL (150-450); RED BLOOD COUNT 3.91 10^6/uL (4.00-5.40); WHITE BLOOD COUNT 5.7 10^3/uL (4.0-10.0)
[2022-12-27 06:19] LABS: BLOOD UREA NITROGEN 12 MG/DL (9-23); CARBON DIOXIDE LEVEL > 40.0 MMOL/L (20-31); CHLORIDE LEVEL 93 MMOL/L (98-107); CREATININE FOR GFR 0.67 MG/DL (0.55-1.30); GLOMERULAR FILTRATION RATE > 60.0 (>45); GLUCOSE, FASTING 87 MG/DL (74-106); POTASSIUM SERUM 3.8 MMOL/L (3.5-5.1); SODIUM LEVEL 145 MMOL/L (136-145)
[2022-12-27] MEDS: SODIUM CHLORIDE 0.9% INJ 10 ML SYR IV SCH ×2 (06:32→17:13)
[2022-12-27 06:50] VITALS: BP 101/65
[2022-12-27] MEDS: INSULIN LISPRO (NovoLOG) PER UNIT SC SCH ×4 (06:52→20:36)
[2022-12-27] MEDS: NORCO, ANEXSIA 5/325MG TABLET (HYDROcodone/ACETAMINOPHEN) PO PRN ×2 (07:52→20:39)
[2022-12-27] MEDS: ADVAIR HFA 45/21MCG INHALER INH SCH ×2 (07:59→19:41)
[2022-12-27] MEDS: DIGOXIN 0.25 MG TAB PO SCH (09:31)
[2022-12-27] MEDS: SERTRALINE HCL 25 MG TABLET PO SCH (09:31)
[2022-12-27] MEDS: GABAPENTIN 100 MG CAP PO SCH ×3 (09:32→20:34)
[2022-12-27] MEDS: APIXABAN 5 MG TAB (ELIQUIS) PO SCH ×2 (09:32→20:34)
[2022-12-27] MEDS: POTASSIUM CHLORIDE 10MEQ SR TABLET PO SCH ×2 (09:32→20:35)
[2022-12-27] MEDS: ASPIRIN 81MG ENTERIC TABLET PO SCH (09:33)
[2022-12-27] MEDS: ATORVASTATIN 20 MG TAB PO SCH (09:33)
[2022-12-27] MEDS: MAGNESIUM OXIDE 400MG TAB (MAG-OX) PO SCH ×2 (09:34→20:35)
[2022-12-27] MEDS: METOPROLOL TART 50 MG TAB PO SCH ×2 (09:34→20:37)
[2022-12-27] MEDS: NICOTINE 21MG/24HR 1 EA TRANSDERMAL TD SCH (09:35)
[2022-12-27] MEDS: FAMOTIDINE 20 MG TAB PO SCH (09:35)
[2022-12-27] MEDS: SODIUM CHLORIDE NASAL 0.65% SPRAY BTL (OCEAN) SCH ×2 (09:36→20:36)
[2022-12-27] MEDS: LIDOCAINE 5% (LIDODERM) PATCH TD SCH (09:36)
[2022-12-27] MEDS: VANICREAM MOISTURIZING SKIN CREAM 113GM TUBE TOP SCH (09:37)
[2022-12-27] MEDS: traMADol 50 MG TAB PO PRN (13:35)
[2022-12-27 14:00] VITALS: BP 101/76
[2022-12-27] MEDS: QUEtiapine FUMARATE **XR** 200MG TABLET PO SCH (20:35)
[2022-12-27 21:09] VITALS: BP 116/72
[2022-12-27 22:00] VITALS: BP 110/76
[2022-12-28] MEDS: BUMETANIDE 1MG/4ML VIAL IV SCH ×2 (00:25→08:55)
[2022-12-28] MEDS: SODIUM CHLORIDE 0.9% INJ 10 ML SYR IV SCH ×2 (05:17→17:57)
[2022-12-28 06:00] VITALS: BP 104/62
[2022-12-28 06:12] LABS: VENOUS BASE EXCESS 19.5 (-2.0-2.0); VENOUS HCO3 46.2 MEQ/L (23.0-27.0); VENOUS O2 SATURATION 96.5 % (60.0-80.0); VENOUS PARTIAL PRESSURE CO2 65.3 mmHg (38.0-50.0); VENOUS PARTIAL PRESSURE O2 88.3 mmHg (30.0-50.0); VENOUS PH 7.468 UNITS (7.330-7.430); VENOUS STANDARD HCO3 43.6 MEQ/L; VENOUS TOTAL CO2 48.2 MEQ/L (24.0-28.0)
[2022-12-28 06:21] LABS: BASO % 0.5 % (0.0-1.0); EOS # 0.2 10^3/uL (0.0-0.5); EOS % 3.1 % (0.0-3.0); HEMATOCRIT 35.7 % (36.0-47.0); HEMOGLOBIN 9.6 g/dl (12.0-15.5); LYMPH # 1.5 10^3/uL (1.5-5.0); LYMPH % 27.3 % (24.0-44.0); MEAN CORPUSCULAR HEMOGLOBIN 24.9 pg (27.0-33.0); MEAN CORPUSCULAR HGB CONC 26.9 g/dl (32.0-36.5); MEAN CORPUSCULAR VOLUME 92.5 fl (80.0-96.0); MONO # 0.5 10^3/uL (0.0-0.8); MONO % 8.3 % (2.0-8.0); NEUTROPHILS # 3.4 10^3/uL (1.5-8.5); NEUTROPHILS % 60.6 % (36.0-66.0); PLATELET COUNT, AUTOMATED 170 10^3/uL (150-450); RED BLOOD COUNT 3.86 10^6/uL (4.00-5.40); WHITE BLOOD COUNT 5.5 10^3/uL (4.0-10.0)
[2022-12-28 06:47] LABS: BLOOD UREA NITROGEN 13 MG/DL (9-23); CALCIUM LEVEL 7.9 MG/DL (8.3-10.6); CARBON DIOXIDE LEVEL > 40.0 MMOL/L (20-31); CHLORIDE LEVEL 95 MMOL/L (98-107); CREATININE FOR GFR 0.68 MG/DL (0.55-1.30); GLOMERULAR FILTRATION RATE > 60.0 (>45); GLUCOSE, FASTING 84 MG/DL (74-106); POTASSIUM SERUM 3.6 MMOL/L (3.5-5.1); SODIUM LEVEL 145 MMOL/L (136-145)
[2022-12-28] MEDS: ADVAIR HFA 45/21MCG INHALER INH SCH ×2 (07:29→19:19)
[2022-12-28] MEDS: INSULIN LISPRO (NovoLOG) PER UNIT SC SCH ×4 (07:30→20:59)
[2022-12-28 08:00] VITALS: BP 104/62
[2022-12-28] MEDS: ATORVASTATIN 20 MG TAB PO SCH (08:47)
[2022-12-28] MEDS: MAGNESIUM OXIDE 400MG TAB (MAG-OX) PO SCH ×2 (08:47→20:57)
[2022-12-28] MEDS: FAMOTIDINE 20 MG TAB PO SCH (08:47)
[2022-12-28] MEDS: POTASSIUM CHLORIDE 10MEQ SR TABLET PO SCH ×2 (08:47→20:56)
[2022-12-28] MEDS: GABAPENTIN 100 MG CAP PO SCH ×3 (08:47→20:57)
[2022-12-28] MEDS: APIXABAN 5 MG TAB (ELIQUIS) PO SCH ×2 (08:47→20:55)
[2022-12-28] MEDS: ASPIRIN 81MG ENTERIC TABLET PO SCH (08:48)
[2022-12-28] MEDS: SERTRALINE HCL 25 MG TABLET PO SCH (08:48)
[2022-12-28] MEDS: DIGOXIN 0.25 MG TAB PO SCH (08:50)
[2022-12-28] MEDS: METOPROLOL TART 50 MG TAB PO SCH (08:51)
[2022-12-28] MEDS: SODIUM CHLORIDE NASAL 0.65% SPRAY BTL (OCEAN) SCH ×2 (08:52→20:55)
[2022-12-28] MEDS: NICOTINE 21MG/24HR 1 EA TRANSDERMAL TD SCH (08:52)
[2022-12-28] MEDS: LIDOCAINE 5% (LIDODERM) PATCH TD SCH (08:52)
[2022-12-28] MEDS: VANICREAM MOISTURIZING SKIN CREAM 113GM TUBE TOP SCH (08:52)
[2022-12-28 14:30] VITALS: BP 144/88
[2022-12-28] MEDS: NORCO, ANEXSIA 5/325MG TABLET (HYDROcodone/ACETAMINOPHEN) PO PRN (15:30)
[2022-12-28] MEDS: QUEtiapine FUMARATE **XR** 200MG TABLET PO SCH (20:56)
[2022-12-28] MEDS: METOPROLOL TART 25 MG TABLET PO SCH (20:56)
[2022-12-28] MEDS: traMADol 50 MG TAB PO PRN (20:58)
[2022-12-28] MEDS: SODIUM CHLORIDE 0.9% INJ 10 ML SYR IV PRN (20:59)
[2022-12-28] MEDS ORDERED: BUMETANIDE 1MG/4ML VIAL IV SCH (21:00)
[2022-12-28 21:48] VITALS: BP 124/86
[2022-12-29] VITALS (19 sets, daily range): BP systolic 86–157; BP diastolic 1–110
[2022-12-29] MEDS: SODIUM CHLORIDE 0.9% INJ 10 ML SYR IV SCH ×2 (05:45→17:19)
[2022-12-29] MEDS: BUMETANIDE 1MG/4ML VIAL IV SCH ×3 (07:43→20:33)
[2022-12-29 08:11] LABS: VENOUS BASE EXCESS 19.1 (-2.0-2.0); VENOUS HCO3 47.7 MEQ/L (23.0-27.0); VENOUS O2 SATURATION 70.7 % (60.0-80.0); VENOUS PARTIAL PRESSURE CO2 79.8 mmHg (38.0-50.0); VENOUS PARTIAL PRESSURE O2 40.5 mmHg (30.0-50.0); VENOUS PH 7.394 UNITS (7.330-7.430); VENOUS STANDARD HCO3 42.6 MEQ/L; VENOUS TOTAL CO2 50.1 MEQ/L (24.0-28.0)
[2022-12-29 08:17] LABS: BASO % 0.4 % (0.0-1.0); EOS # 0.2 10^3/uL (0.0-0.5); EOS % 3.1 % (0.0-3.0); HEMATOCRIT 34.9 % (36.0-47.0); HEMOGLOBIN 9.6 g/dl (12.0-15.5); LYMPH # 1.4 10^3/uL (1.5-5.0); LYMPH % 25.9 % (24.0-44.0); MEAN CORPUSCULAR HEMOGLOBIN 25.3 pg (27.0-33.0); MEAN CORPUSCULAR HGB CONC 27.5 g/dl (32.0-36.5); MEAN CORPUSCULAR VOLUME 92.1 fl (80.0-96.0); MONO # 0.4 10^3/uL (0.0-0.8); MONO % 7.8 % (2.0-8.0); NEUTROPHILS # 3.4 10^3/uL (1.5-8.5); NEUTROPHILS % 62.4 % (36.0-66.0); PLATELET COUNT, AUTOMATED 178 10^3/uL (150-450); RED BLOOD COUNT 3.79 10^6/uL (4.00-5.40); WHITE BLOOD COUNT 5.4 10^3/uL (4.0-10.0)
[2022-12-29 08:49] LABS: BLOOD UREA NITROGEN 13 MG/DL (9-23); CALCIUM LEVEL 8.3 MG/DL (8.3-10.6); CARBON DIOXIDE LEVEL > 40.0 MMOL/L (20-31); CHLORIDE LEVEL 96 MMOL/L (98-107); CREATININE FOR GFR 0.73 MG/DL (0.55-1.30); GLOMERULAR FILTRATION RATE > 60.0 (>45); GLUCOSE, FASTING 82 MG/DL (74-106); SODIUM LEVEL 144 MMOL/L (136-145)
[2022-12-29] MEDS: INSULIN LISPRO (NovoLOG) PER UNIT SC SCH ×4 (08:50→20:37)
[2022-12-29] MEDS: ADVAIR HFA 45/21MCG INHALER INH SCH ×2 (08:51→20:02)
[2022-12-29] MEDS: ASPIRIN 81MG ENTERIC TABLET PO SCH (09:05)
[2022-12-29] MEDS: SERTRALINE HCL 25 MG TABLET PO SCH (09:05)
[2022-12-29] MEDS: GABAPENTIN 100 MG CAP PO SCH ×3 (09:06→20:36)
[2022-12-29] MEDS: POTASSIUM CHLORIDE 10MEQ SR TABLET PO SCH ×2 (09:06→20:33)
[2022-12-29] MEDS: MAGNESIUM OXIDE 400MG TAB (MAG-OX) PO SCH ×2 (09:06→20:35)
[2022-12-29] MEDS: DIGOXIN 0.25 MG TAB PO SCH (09:06)
[2022-12-29] MEDS: APIXABAN 5 MG TAB (ELIQUIS) PO SCH ×2 (09:07→20:36)
[2022-12-29] MEDS: ATORVASTATIN 20 MG TAB PO SCH (09:07)
[2022-12-29] MEDS: FAMOTIDINE 20 MG TAB PO SCH (09:07)
[2022-12-29] MEDS: METOPROLOL TART 25 MG TABLET PO SCH ×2 (09:09→20:36)
[2022-12-29] MEDS: LIDOCAINE 5% (LIDODERM) PATCH TD SCH ×2 (09:10→20:38)
[2022-12-29] MEDS: NICOTINE 21MG/24HR 1 EA TRANSDERMAL TD SCH (09:10)
[2022-12-29] MEDS: VANICREAM MOISTURIZING SKIN CREAM 113GM TUBE TOP SCH (09:11)
[2022-12-29] MEDS: SODIUM CHLORIDE NASAL 0.65% SPRAY BTL (OCEAN) SCH ×2 (09:11→20:37)
[2022-12-29] MEDS: NORCO, ANEXSIA 5/325MG TABLET (HYDROcodone/ACETAMINOPHEN) PO PRN ×2 (17:18→20:46)
[2022-12-29] MEDS ORDERED: metOLazone 5 MG TAB PO ONE (19:00)
[2022-12-29] MEDS: LEVALBUTEROL 1.25MG 0.5ML CONCENTRATE NEB INH PRN ×2 (20:02→23:33)
[2022-12-29 20:07] LABS: VENOUS BASE EXCESS 18.3 (-2.0-2.0); VENOUS HCO3 45.4 MEQ/L (23.0-27.0); VENOUS O2 SATURATION 96.9 % (60.0-80.0); VENOUS PARTIAL PRESSURE CO2 66.6 mmHg (38.0-50.0); VENOUS PARTIAL PRESSURE O2 95.1 mmHg (30.0-50.0); VENOUS PH 7.451 UNITS (7.330-7.430); VENOUS STANDARD HCO3 42.3 MEQ/L; VENOUS TOTAL CO2 47.4 MEQ/L (24.0-28.0)
[2022-12-29 20:10] LABS: BASO % 0.3 % (0.0-1.0); EOS # 0.2 10^3/uL (0.0-0.5); EOS % 2.6 % (0.0-3.0); HEMATOCRIT 36.8 % (36.0-47.0); HEMOGLOBIN 10.1 g/dl (12.0-15.5); LYMPH # 1.3 10^3/uL (1.5-5.0); LYMPH % 18.6 % (24.0-44.0); MEAN CORPUSCULAR HEMOGLOBIN 25.2 pg (27.0-33.0); MEAN CORPUSCULAR HGB CONC 27.4 g/dl (32.0-36.5); MEAN CORPUSCULAR VOLUME 91.8 fl (80.0-96.0); MONO # 0.5 10^3/uL (0.0-0.8); MONO % 6.8 % (2.0-8.0); NEUTROPHILS % 71.4 % (36.0-66.0); PLATELET COUNT, AUTOMATED 193 10^3/uL (150-450); RED BLOOD COUNT 4.01 10^6/uL (4.00-5.40); WHITE BLOOD COUNT 6.9 10^3/uL (4.0-10.0)
[2022-12-29 20:32] LABS: CK-MB VALUE MASS < 1.0 NG/ML (<3.6)
[2022-12-29 20:33] LABS: CPK CREATINE PHOSPHOKINASE 21 U/L (34-145); MB/CK RELATIVE INDEX 4.76 (< OR =4)
[2022-12-29] MEDS: QUEtiapine FUMARATE **XR** 200MG TABLET PO SCH (20:33)
[2022-12-29 20:34] LABS: ALBUMIN 2.7 G/DL (3.2-5.2); ALKALINE PHOSPHATASE 118 U/L (46-116); ALT/SGPT 15 U/L (7.0-40); AST/SGOT 27 U/L (<34); BLOOD UREA NITROGEN 13 MG/DL (9-23); CALCIUM LEVEL 8.5 MG/DL (8.3-10.6); CARBON DIOXIDE LEVEL > 40.0 MMOL/L (20-31); CHLORIDE LEVEL 94 MMOL/L (98-107); CREATININE FOR GFR 0.75 MG/DL (0.55-1.30); GLOMERULAR FILTRATION RATE > 60.0 (>45); GLUCOSE, FASTING 109 MG/DL (74-106); MAGNESIUM LEVEL 1.9 MG/DL (1.8-2.4); POTASSIUM SERUM 3.8 MMOL/L (3.5-5.1); SODIUM LEVEL 143 MMOL/L (136-145); TOTAL PROTEIN 5.7 G/DL (5.7-8.2)
[2022-12-29 23:39] LABS: VENOUS BASE EXCESS 18.4 (-2.0-2.0); VENOUS HCO3 44.9 MEQ/L (23.0-27.0); VENOUS O2 SATURATION 79.8 % (60.0-80.0); VENOUS PARTIAL PRESSURE CO2 61.9 mmHg (38.0-50.0); VENOUS PARTIAL PRESSURE O2 43.9 mmHg (30.0-50.0); VENOUS PH 7.478 UNITS (7.330-7.430); VENOUS STANDARD HCO3 42.1 MEQ/L; VENOUS TOTAL CO2 46.8 MEQ/L (24.0-28.0)
[2022-12-30] VITALS (12 sets, daily range): BP systolic 98–134; BP diastolic 58–81; O2SAT 93–94
[2022-12-30] MEDS ORDERED: RAMELTEON 8 MG TAB (ROZEREM) PO PRN (00:10)
[2022-12-30] MEDS: FLUTICASONE PROP 0.05% NASAL SPRAY 16 GM (FLONASE) NARES SCH ×3 (00:36→20:01)
[2022-12-30 05:47] LABS: BASO % 0.4 % (0.0-1.0); EOS # 0.2 10^3/uL (0.0-0.5); EOS % 3.4 % (0.0-3.0); HEMATOCRIT 32.2 % (36.0-47.0); HEMOGLOBIN 8.9 g/dl (12.0-15.5); LYMPH # 1.5 10^3/uL (1.5-5.0); MEAN CORPUSCULAR HEMOGLOBIN 25.2 pg (27.0-33.0); MEAN CORPUSCULAR HGB CONC 27.6 g/dl (32.0-36.5); MEAN CORPUSCULAR VOLUME 91.2 fl (80.0-96.0); MONO # 0.4 10^3/uL (0.0-0.8); MONO % 7.2 % (2.0-8.0); NEUTROPHILS # 3.5 10^3/uL (1.5-8.5); NEUTROPHILS % 61.6 % (36.0-66.0); PLATELET COUNT, AUTOMATED 179 10^3/uL (150-450); RED BLOOD COUNT 3.53 10^6/uL (4.00-5.40); WHITE BLOOD COUNT 5.7 10^3/uL (4.0-10.0)
[2022-12-30 05:48] LABS: VENOUS BASE EXCESS 20.4 (-2.0-2.0); VENOUS HCO3 46.9 MEQ/L (23.0-27.0); VENOUS O2 SATURATION 97.4 % (60.0-80.0); VENOUS PARTIAL PRESSURE CO2 64.6 mmHg (38.0-50.0); VENOUS PARTIAL PRESSURE O2 94.9 mmHg (30.0-50.0); VENOUS PH 7.479 UNITS (7.330-7.430); VENOUS STANDARD HCO3 44.6 MEQ/L; VENOUS TOTAL CO2 48.9 MEQ/L (24.0-28.0)
[2022-12-30 05:59] LABS: INR 1.27; PROTHROMBIN TIME 16.2 SECONDS (12.5-14.5)
[2022-12-30 06:00] LABS: PARTIAL THROMBOPLASTIN TIME 36.1 SECONDS (24.8-34.2)
[2022-12-30] MEDS: SODIUM CHLORIDE 0.9% INJ 10 ML SYR IV SCH ×2 (06:28→16:03)
[2022-12-30] MEDS: BUMETANIDE 1MG/4ML VIAL IV SCH ×3 (06:30→22:49)
[2022-12-30 06:45] LABS: BLOOD UREA NITROGEN 12 MG/DL (9-23); CALCIUM LEVEL 8.3 MG/DL (8.3-10.6); CARBON DIOXIDE LEVEL > 40.0 MMOL/L (20-31); CHLORIDE LEVEL 93 MMOL/L (98-107); CREATININE FOR GFR 0.68 MG/DL (0.55-1.30); GLOMERULAR FILTRATION RATE > 60.0 (>45); GLUCOSE, FASTING 87 MG/DL (74-106); POTASSIUM SERUM 3.4 MMOL/L (3.5-5.1); SODIUM LEVEL 142 MMOL/L (136-145)
[2022-12-30] MEDS: INSULIN LISPRO (NovoLOG) PER UNIT SC SCH ×4 (07:30→21:00)
[2022-12-30] MEDS: ADVAIR HFA 45/21MCG INHALER INH SCH ×2 (07:55→20:15)
[2022-12-30] MEDS: NORCO, ANEXSIA 5/325MG TABLET (HYDROcodone/ACETAMINOPHEN) PO PRN ×2 (08:00→20:00)
[2022-12-30] MEDS: APIXABAN 5 MG TAB (ELIQUIS) PO SCH ×2 (08:58→19:59)
[2022-12-30] MEDS: POTASSIUM CHLORIDE 10MEQ SR TABLET PO SCH ×2 (08:58→19:59)
[2022-12-30] MEDS: GABAPENTIN 100 MG CAP PO SCH ×3 (08:58→19:59)
[2022-12-30] MEDS: ATORVASTATIN 20 MG TAB PO SCH (08:58)
[2022-12-30] MEDS: NICOTINE 21MG/24HR 1 EA TRANSDERMAL TD SCH (08:58)
[2022-12-30] MEDS: MAGNESIUM OXIDE 400MG TAB (MAG-OX) PO SCH ×2 (08:59→19:58)
[2022-12-30] MEDS: SERTRALINE HCL 25 MG TABLET PO SCH (08:59)
[2022-12-30] MEDS: ASPIRIN 81MG ENTERIC TABLET PO SCH (08:59)
[2022-12-30] MEDS: FAMOTIDINE 20 MG TAB PO SCH (08:59)
[2022-12-30] MEDS: DIGOXIN 0.25 MG TAB PO SCH (09:02)
[2022-12-30] MEDS: METOPROLOL TART 25 MG TABLET PO SCH ×2 (09:03→19:59)
[2022-12-30] MEDS: SODIUM CHLORIDE 0.9% INJ 10 ML SYR IV PRN (09:10)
[2022-12-30] MEDS ORDERED: POTASSIUM CHLORIDE 10MEQ SR TABLET PO ONE ×2 (10:10→10:30)
[2022-12-30] MEDS ORDERED: ISOVUE-370 76% 100ML VIAL As Ordered ONE (10:30)
[2022-12-30 10:33] LABS: CK-MB VALUE MASS < 1.0 NG/ML (<3.6)
[2022-12-30 10:34] LABS: CPK CREATINE PHOSPHOKINASE 16 U/L (34-145); MB/CK RELATIVE INDEX 6.25 (< OR =4)
[2022-12-30] MEDS: VANICREAM MOISTURIZING SKIN CREAM 113GM TUBE TOP SCH (12:07)
[2022-12-30] MEDS: SODIUM CHLORIDE NASAL 0.65% SPRAY BTL (OCEAN) SCH ×2 (12:07→20:00)
[2022-12-30] MEDS: metOLazone 5 MG TAB PO SCH (12:09)
[2022-12-30] MEDS: ACETAMINOPHEN TAB 650MG DOSE (2X325MG) PO PRN (16:03)
[2022-12-30] MEDS: QUEtiapine FUMARATE **XR** 200MG TABLET PO SCH (19:58)
[2022-12-30] MEDS ORDERED: NITROGLYCERIN 2% OINT 1 GM *U/D* PKT TOP ONE (20:10)
[2022-12-30] MEDS: IPRATROPIUM 0.02% SOLN 0.5MG 2.5ML NEB INH SCH (20:29)
[2022-12-30] MEDS: LEVALBUTEROL 1.25MG 0.5ML CONCENTRATE NEB INH SCH (20:30)
[2022-12-31] VITALS (9 sets, daily range): BP systolic 102–140; BP diastolic 59–97; O2SAT 89–91
[2022-12-31] MEDS: IPRATROPIUM 0.02% SOLN 0.5MG 2.5ML NEB INH SCH ×5 (01:38→21:56)
[2022-12-31] MEDS: LEVALBUTEROL 1.25MG 0.5ML CONCENTRATE NEB INH SCH ×5 (01:39→21:56)
[2022-12-31 05:35] LABS: BASO % 0.3 % (0.0-1.0); EOS # 0.2 10^3/uL (0.0-0.5); EOS % 3.6 % (0.0-3.0); HEMOGLOBIN 9.6 g/dl (12.0-15.5); LYMPH # 1.5 10^3/uL (1.5-5.0); LYMPH % 25.2 % (24.0-44.0); MEAN CORPUSCULAR HEMOGLOBIN 25.7 pg (27.0-33.0); MEAN CORPUSCULAR HGB CONC 28.2 g/dl (32.0-36.5); MEAN CORPUSCULAR VOLUME 91.2 fl (80.0-96.0); MONO # 0.5 10^3/uL (0.0-0.8); MONO % 7.8 % (2.0-8.0); NEUTROPHILS # 3.6 10^3/uL (1.5-8.5); NEUTROPHILS % 62.8 % (36.0-66.0); PLATELET COUNT, AUTOMATED 209 10^3/uL (150-450); RED BLOOD COUNT 3.73 10^6/uL (4.00-5.40); WHITE BLOOD COUNT 5.8 10^3/uL (4.0-10.0)
[2022-12-31] MEDS: BUMETANIDE 1MG/4ML VIAL IV SCH (05:51)
[2022-12-31] MEDS: SODIUM CHLORIDE 0.9% INJ 10 ML SYR IV SCH ×2 (05:52→17:27)
[2022-12-31 05:58] LABS: BLOOD UREA NITROGEN 15 MG/DL (9-23); CALCIUM LEVEL 9.2 MG/DL (8.3-10.6); CARBON DIOXIDE LEVEL > 40.0 MMOL/L (20-31); CHLORIDE LEVEL 90 MMOL/L (98-107); CREATININE FOR GFR 0.66 MG/DL (0.55-1.30); GLOMERULAR FILTRATION RATE > 60.0 (>45); GLUCOSE, FASTING 99 MG/DL (74-106); POTASSIUM SERUM 3.5 MMOL/L (3.5-5.1); SODIUM LEVEL 141 MMOL/L (136-145)
[2022-12-31] MEDS: INSULIN LISPRO (NovoLOG) PER UNIT SC SCH ×4 (07:30→20:48)
[2022-12-31] MEDS: MAGNESIUM OXIDE 400MG TAB (MAG-OX) PO SCH ×2 (08:26→20:37)
[2022-12-31] MEDS: SERTRALINE HCL 25 MG TABLET PO SCH (08:27)
[2022-12-31] MEDS: APIXABAN 5 MG TAB (ELIQUIS) PO SCH ×2 (08:27→20:39)
[2022-12-31] MEDS: DIGOXIN 0.25 MG TAB PO SCH (08:27)
[2022-12-31] MEDS: ACETAMINOPHEN TAB 650MG DOSE (2X325MG) PO PRN ×2 (08:27→16:12)
[2022-12-31] MEDS: POTASSIUM CHLORIDE 10MEQ SR TABLET PO SCH ×2 (08:28→20:36)
[2022-12-31] MEDS: METOPROLOL TART 25 MG TABLET PO SCH ×2 (08:28→20:37)
[2022-12-31] MEDS: GABAPENTIN 100 MG CAP PO SCH ×3 (08:28→20:36)
[2022-12-31] MEDS: ASPIRIN 81MG ENTERIC TABLET PO SCH (08:28)
[2022-12-31] MEDS: FLUTICASONE PROP 0.05% NASAL SPRAY 16 GM (FLONASE) NARES SCH ×2 (08:29→20:39)
[2022-12-31] MEDS: NICOTINE 21MG/24HR 1 EA TRANSDERMAL TD SCH (08:29)
[2022-12-31] MEDS: FAMOTIDINE 20 MG TAB PO SCH (08:29)
[2022-12-31] MEDS: ATORVASTATIN 20 MG TAB PO SCH (08:29)
[2022-12-31] MEDS: SODIUM CHLORIDE NASAL 0.65% SPRAY BTL (OCEAN) SCH ×2 (08:29→20:39)
[2022-12-31] MEDS: VANICREAM MOISTURIZING SKIN CREAM 113GM TUBE TOP SCH (08:29)
[2022-12-31] MEDS: LIDOCAINE 5% (LIDODERM) PATCH TD SCH (08:30)
[2022-12-31] MEDS ORDERED: TORSEMIDE 20 MG TAB PO SCH ×2 (08:35→21:00)
[2022-12-31] MEDS: ADVAIR HFA 45/21MCG INHALER INH SCH ×2 (08:48→20:48)
[2022-12-31] MEDS: NORCO, ANEXSIA 5/325MG TABLET (HYDROcodone/ACETAMINOPHEN) PO PRN ×2 (10:32→20:38)
[2022-12-31] MEDS: metOLazone 5 MG TAB PO SCH (12:26)
[2022-12-31] MEDS: QUEtiapine FUMARATE **XR** 200MG TABLET PO SCH (20:38)
[2022-12-31] MEDS ORDERED: MORPHINE 2 MG/ML 1ML VIAL IV ONE (21:35)
[2022-12-31] MEDS ORDERED: methylPREDNISolone 40MG 1ML VIAL IV STA (23:07)
[2023-01-01] MEDS: LEVALBUTEROL 1.25MG 0.5ML CONCENTRATE NEB INH SCH ×4 (04:11→20:03)
[2023-01-01] MEDS: SODIUM CHLORIDE 0.9% INJ 10 ML SYR IV SCH ×2 (05:51→16:58)
[2023-01-01 06:19] LABS: BASO % 0.5 % (0.0-1.0); EOS % 0.7 % (0.0-3.0); HEMATOCRIT 37.7 % (36.0-47.0); HEMOGLOBIN 10.5 g/dl (12.0-15.5); LYMPH # 0.8 10^3/uL (1.5-5.0); LYMPH % 15.1 % (24.0-44.0); MEAN CORPUSCULAR HEMOGLOBIN 25.2 pg (27.0-33.0); MEAN CORPUSCULAR HGB CONC 27.9 g/dl (32.0-36.5); MEAN CORPUSCULAR VOLUME 90.4 fl (80.0-96.0); MONO # 0.1 10^3/uL (0.0-0.8); MONO % 1.8 % (2.0-8.0); NEUTROPHILS # 4.5 10^3/uL (1.5-8.5); NEUTROPHILS % 81.4 % (36.0-66.0); PLATELET COUNT, AUTOMATED 249 10^3/uL (150-450); RED BLOOD COUNT 4.17 10^6/uL (4.00-5.40); WHITE BLOOD COUNT 5.6 10^3/uL (4.0-10.0)
[2023-01-01 06:52] LABS: ALBUMIN 3.5 G/DL (3.2-5.2); ALKALINE PHOSPHATASE 104 U/L (46-116); ALT/SGPT 18 U/L (7.0-40); AST/SGOT 34 U/L (<34); BILIRUBIN,TOTAL 1.4 MG/DL (0.3-1.2); BLOOD UREA NITROGEN 20 MG/DL (9-23); CALCIUM LEVEL 9.3 MG/DL (8.3-10.6); CARBON DIOXIDE LEVEL > 40.0 MMOL/L (20-31); CHLORIDE LEVEL 89 MMOL/L (98-107); GLOMERULAR FILTRATION RATE > 60.0 (>45); GLUCOSE, FASTING 166 MG/DL (74-106); MAGNESIUM LEVEL 1.8 MG/DL (1.8-2.4); SODIUM LEVEL 141 MMOL/L (136-145); TOTAL PROTEIN 6.3 G/DL (5.7-8.2)
[2023-01-01] MEDS: IPRATROPIUM 0.02% SOLN 0.5MG 2.5ML NEB INH SCH ×3 (07:44→20:02)
[2023-01-01] MEDS: ADVAIR HFA 45/21MCG INHALER INH SCH ×2 (07:44→20:02)
[2023-01-01] MEDS: GABAPENTIN 100 MG CAP PO SCH (08:21)
[2023-01-01] MEDS: FAMOTIDINE 20 MG TAB PO SCH (08:21)
[2023-01-01] MEDS: ASPIRIN 81MG ENTERIC TABLET PO SCH (08:21)
[2023-01-01] MEDS: NORCO, ANEXSIA 5/325MG TABLET (HYDROcodone/ACETAMINOPHEN) PO PRN ×2 (08:21→16:57)
[2023-01-01] MEDS: ATORVASTATIN 20 MG TAB PO SCH (08:21)
[2023-01-01] MEDS: SERTRALINE HCL 25 MG TABLET PO SCH (08:21)
[2023-01-01] MEDS: MAGNESIUM OXIDE 400MG TAB (MAG-OX) PO SCH ×2 (08:22→20:49)
[2023-01-01] MEDS: NICOTINE 21MG/24HR 1 EA TRANSDERMAL TD SCH (08:22)
[2023-01-01] MEDS: APIXABAN 5 MG TAB (ELIQUIS) PO SCH ×2 (08:22→20:51)
[2023-01-01] MEDS: INSULIN LISPRO (NovoLOG) PER UNIT SC SCH ×4 (08:22→21:00)
[2023-01-01] MEDS: POTASSIUM CHLORIDE 10MEQ SR TABLET PO SCH ×2 (08:22→20:49)
[2023-01-01] MEDS: DIGOXIN 0.25 MG TAB PO SCH (08:23)
[2023-01-01] MEDS: VANICREAM MOISTURIZING SKIN CREAM 113GM TUBE TOP SCH (08:23)
[2023-01-01] MEDS: FLUTICASONE PROP 0.05% NASAL SPRAY 16 GM (FLONASE) NARES SCH ×2 (08:23→20:52)
[2023-01-01] MEDS: SODIUM CHLORIDE NASAL 0.65% SPRAY BTL (OCEAN) SCH ×2 (08:23→21:00)
[2023-01-01] MEDS: METOPROLOL TART 25 MG TABLET PO SCH ×2 (08:26→20:52)
[2023-01-01 08:52] LABS: VENOUS BASE EXCESS 22.6 (-2.0-2.0); VENOUS HCO3 49.7 MEQ/L (23.0-27.0); VENOUS O2 SATURATION 99.2 % (60.0-80.0); VENOUS PARTIAL PRESSURE O2 180.7 mmHg (30.0-50.0); VENOUS PH 7.488 UNITS (7.330-7.430); VENOUS STANDARD HCO3 47.2 MEQ/L; VENOUS TOTAL CO2 51.7 MEQ/L (24.0-28.0)
[2023-01-01] MEDS: LIDOCAINE 5% (LIDODERM) PATCH TD SCH (09:00)
[2023-01-01] MEDS: traMADol 50 MG TAB PO PRN (11:25)
[2023-01-01] MEDS: metOLazone 5 MG TAB PO SCH (11:25)
[2023-01-01] MEDS: ACETAMINOPHEN TAB 650MG DOSE (2X325MG) PO PRN (13:10)
[2023-01-01] MEDS: DOCUSATE SODIUM 100MG CAPSULE PO PRN (13:40)
[2023-01-01 14:00] VITALS: BP 127/80
[2023-01-01] MEDS: GABAPENTIN 300 MG CAP PO SCH ×2 (16:57→20:49)
[2023-01-01] MEDS: QUEtiapine FUMARATE **XR** 200MG TABLET PO SCH (20:48)
[2023-01-01 21:00] VITALS: BP 127/83
[2023-01-02] MEDS: SODIUM CHLORIDE 0.9% INJ 10 ML SYR IV SCH ×2 (06:09→17:27)
[2023-01-02 06:15] LABS: BASO % 0.5 % (0.0-1.0); EOS # 0.2 10^3/uL (0.0-0.5); EOS % 2.6 % (0.0-3.0); HEMATOCRIT 34.3 % (36.0-47.0); HEMOGLOBIN 9.7 g/dl (12.0-15.5); LYMPH % 32.9 % (24.0-44.0); MEAN CORPUSCULAR HEMOGLOBIN 25.8 pg (27.0-33.0); MEAN CORPUSCULAR HGB CONC 28.3 g/dl (32.0-36.5); MEAN CORPUSCULAR VOLUME 91.2 fl (80.0-96.0); MONO # 0.5 10^3/uL (0.0-0.8); MONO % 8.6 % (2.0-8.0); NEUTROPHILS # 3.3 10^3/uL (1.5-8.5); NEUTROPHILS % 55.2 % (36.0-66.0); PLATELET COUNT, AUTOMATED 235 10^3/uL (150-450); RED BLOOD COUNT 3.76 10^6/uL (4.00-5.40); WHITE BLOOD COUNT 6.1 10^3/uL (4.0-10.0)
[2023-01-02 06:35] VITALS: BP 106/72
[2023-01-02 07:07] LABS: ALBUMIN 3.2 G/DL (3.2-5.2); ALKALINE PHOSPHATASE 100 U/L (46-116); ALT/SGPT 16 U/L (7.0-40); AST/SGOT 36 U/L (<34); BLOOD UREA NITROGEN 21 MG/DL (9-23); CALCIUM LEVEL 8.6 MG/DL (8.3-10.6); CARBON DIOXIDE LEVEL > 40.0 MMOL/L (20-31); CHLORIDE LEVEL 91 MMOL/L (98-107); CREATININE FOR GFR 0.66 MG/DL (0.55-1.30); GLOMERULAR FILTRATION RATE > 60.0 (>45); GLUCOSE, FASTING 103 MG/DL (74-106); POTASSIUM SERUM 3.5 MMOL/L (3.5-5.1); SODIUM LEVEL 141 MMOL/L (136-145); TOTAL PROTEIN 5.9 G/DL (5.7-8.2)
[2023-01-02] MEDS: DOCUSATE SODIUM 100MG CAPSULE PO PRN (07:26)
[2023-01-02] MEDS: NORCO, ANEXSIA 5/325MG TABLET (HYDROcodone/ACETAMINOPHEN) PO PRN ×2 (07:27→15:40)
[2023-01-02] MEDS: INSULIN LISPRO (NovoLOG) PER UNIT SC SCH ×4 (07:30→21:00)
[2023-01-02] MEDS: ADVAIR HFA 45/21MCG INHALER INH SCH ×2 (07:52→20:02)
[2023-01-02] MEDS: IPRATROPIUM 0.02% SOLN 0.5MG 2.5ML NEB INH SCH ×4 (07:53→20:02)
[2023-01-02] MEDS: LEVALBUTEROL 1.25MG 0.5ML CONCENTRATE NEB INH SCH ×4 (07:53→20:02)
[2023-01-02] MEDS: APIXABAN 5 MG TAB (ELIQUIS) PO SCH ×2 (09:01→20:08)
[2023-01-02] MEDS: ATORVASTATIN 20 MG TAB PO SCH (09:01)
[2023-01-02] MEDS: GABAPENTIN 300 MG CAP PO SCH ×3 (09:01→20:08)
[2023-01-02] MEDS: DIGOXIN 0.25 MG TAB PO SCH (09:01)
[2023-01-02] MEDS: ASPIRIN 81MG ENTERIC TABLET PO SCH (09:01)
[2023-01-02] MEDS: FAMOTIDINE 20 MG TAB PO SCH (09:01)
[2023-01-02] MEDS: SERTRALINE HCL 25 MG TABLET PO SCH (09:02)
[2023-01-02] MEDS: SODIUM CHLORIDE NASAL 0.65% SPRAY BTL (OCEAN) SCH ×2 (09:02→21:00)
[2023-01-02] MEDS: FLUTICASONE PROP 0.05% NASAL SPRAY 16 GM (FLONASE) NARES SCH ×2 (09:02→20:09)
[2023-01-02] MEDS: LIDOCAINE 5% (LIDODERM) PATCH TD SCH (09:09)
[2023-01-02] MEDS: METOPROLOL TART 25 MG TABLET PO SCH ×2 (09:09→20:09)
[2023-01-02] MEDS: MAGNESIUM OXIDE 400MG TAB (MAG-OX) PO SCH ×2 (09:09→20:08)
[2023-01-02] MEDS: POTASSIUM CHLORIDE 10MEQ SR TABLET PO SCH ×2 (09:09→20:08)
[2023-01-02] MEDS: NICOTINE 21MG/24HR 1 EA TRANSDERMAL TD SCH (09:10)
[2023-01-02] MEDS: VANICREAM MOISTURIZING SKIN CREAM 113GM TUBE TOP SCH (09:11)
[2023-01-02 12:12] VITALS: BP 115/73
[2023-01-02] MEDS: metOLazone 5 MG TAB PO SCH (12:12)
[2023-01-02 12:24] LABS: ABG BASE EXCESS 17.3 (-2.0-2.0); ABG HCO3 43.6 MEQ/L (22.0-26.0); ABG O2 SATURATION 95.2 % (95.0-99.0); ABG PARTIAL PRESSURE CO2 59.6 mmHg (35.0-45.0); ABG PARTIAL PRESSURE O2 79.7 mmHg (75.0-100.0); ABG STANDARD HCO3 41.3 MEQ/L (22.0-26.0); ABG TOTAL CO2 45.4 MEQ/L (23.0-31.0); ABG pH (ARTERIAL) 7.482 UNITS (7.350-7.450)
[2023-01-02 14:00] VITALS: BP 121/82
[2023-01-02 21:00] VITALS: BP 120/75
[2023-01-02] MEDS: QUEtiapine 300MG XR TABLET (SEROQUEL XR) PO SCH (21:44)
[2023-01-02] MEDS: traMADol 50 MG TAB PO PRN (21:45)
[2023-01-03] MEDS: LEVALBUTEROL 1.25MG 0.5ML CONCENTRATE NEB INH SCH ×4 (01:42→19:30)
[2023-01-03] MEDS: IPRATROPIUM 0.02% SOLN 0.5MG 2.5ML NEB INH SCH ×4 (01:42→19:30)
[2023-01-03 06:00] VITALS: BP 112/66
[2023-01-03 06:30] LABS: BASO % 0.5 % (0.0-1.0); EOS # 0.2 10^3/uL (0.0-0.5); HEMATOCRIT 34.8 % (36.0-47.0); HEMOGLOBIN 9.8 g/dl (12.0-15.5); LYMPH # 1.8 10^3/uL (1.5-5.0); LYMPH % 27.5 % (24.0-44.0); MEAN CORPUSCULAR HEMOGLOBIN 25.9 pg (27.0-33.0); MEAN CORPUSCULAR HGB CONC 28.2 g/dl (32.0-36.5); MEAN CORPUSCULAR VOLUME 92.1 fl (80.0-96.0); MONO # 0.5 10^3/uL (0.0-0.8); NEUTROPHILS % 60.8 % (36.0-66.0); PLATELET COUNT, AUTOMATED 235 10^3/uL (150-450); RED BLOOD COUNT 3.78 10^6/uL (4.00-5.40); WHITE BLOOD COUNT 6.6 10^3/uL (4.0-10.0)
[2023-01-03] MEDS: SODIUM CHLORIDE 0.9% INJ 10 ML SYR IV SCH ×2 (06:40→18:58)
[2023-01-03 06:59] LABS: ALBUMIN 2.9 G/DL (3.2-5.2); ALKALINE PHOSPHATASE 99 U/L (46-116); ALT/SGPT 16 U/L (7.0-40); AST/SGOT 38 U/L (<34); BILIRUBIN,TOTAL 0.9 MG/DL (0.3-1.2); BLOOD UREA NITROGEN 20 MG/DL (9-23); CALCIUM LEVEL 8.7 MG/DL (8.3-10.6); CARBON DIOXIDE LEVEL 40 MMOL/L (20-31); CHLORIDE LEVEL 94 MMOL/L (98-107); CREATININE FOR GFR 0.62 MG/DL (0.55-1.30); GLOMERULAR FILTRATION RATE > 60.0 (>45); GLUCOSE, FASTING 99 MG/DL (74-106); POTASSIUM SERUM 3.6 MMOL/L (3.5-5.1); SODIUM LEVEL 139 MMOL/L (136-145)
[2023-01-03] MEDS: ADVAIR HFA 45/21MCG INHALER INH SCH ×2 (07:17→19:31)
[2023-01-03] MEDS: INSULIN LISPRO (NovoLOG) PER UNIT SC SCH ×4 (09:59→21:00)
[2023-01-03] MEDS: ASPIRIN 81MG ENTERIC TABLET PO SCH (10:22)
[2023-01-03] MEDS: MAGNESIUM OXIDE 400MG TAB (MAG-OX) PO SCH ×2 (10:23→20:57)
[2023-01-03] MEDS: POTASSIUM CHLORIDE 10MEQ SR TABLET PO SCH ×2 (10:23→20:57)
[2023-01-03] MEDS: FAMOTIDINE 20 MG TAB PO SCH (10:23)
[2023-01-03] MEDS: APIXABAN 5 MG TAB (ELIQUIS) PO SCH ×2 (10:23→20:58)
[2023-01-03] MEDS: ATORVASTATIN 20 MG TAB PO SCH (10:24)
[2023-01-03] MEDS: GABAPENTIN 300 MG CAP PO SCH ×3 (10:24→20:58)
[2023-01-03] MEDS: SERTRALINE HCL 25 MG TABLET PO SCH (10:24)
[2023-01-03] MEDS: DIGOXIN 0.25 MG TAB PO SCH (10:25)
[2023-01-03] MEDS: METOPROLOL TART 25 MG TABLET PO SCH ×2 (10:27→21:01)
[2023-01-03] MEDS: SODIUM CHLORIDE NASAL 0.65% SPRAY BTL (OCEAN) SCH ×2 (10:28→21:01)
[2023-01-03] MEDS: FLUTICASONE PROP 0.05% NASAL SPRAY 16 GM (FLONASE) NARES SCH (10:28)
[2023-01-03] MEDS: LIDOCAINE 5% (LIDODERM) PATCH TD SCH (10:28)
[2023-01-03] MEDS: NICOTINE 21MG/24HR 1 EA TRANSDERMAL TD SCH (10:29)
[2023-01-03] MEDS: VANICREAM MOISTURIZING SKIN CREAM 113GM TUBE TOP SCH (10:30)
[2023-01-03] MEDS: NORCO, ANEXSIA 5/325MG TABLET (HYDROcodone/ACETAMINOPHEN) PO PRN ×2 (10:42→20:59)
[2023-01-03 12:11] VITALS: O2SAT 97
[2023-01-03] MEDS: metOLazone 5 MG TAB PO SCH (14:36)
[2023-01-03 15:00] VITALS: BP 114/77
[2023-01-03] MEDS: traMADol 50 MG TAB PO PRN (16:07)
[2023-01-03] MEDS: QUEtiapine 300MG XR TABLET (SEROQUEL XR) PO SCH (20:59)
[2023-01-03 21:13] VITALS: BP 122/78
[2023-01-03 21:30] VITALS: O2SAT 89
[2023-01-04] MEDS: LEVALBUTEROL 1.25MG 0.5ML CONCENTRATE NEB INH SCH ×4 (01:01→20:00)
[2023-01-04] MEDS: IPRATROPIUM 0.02% SOLN 0.5MG 2.5ML NEB INH SCH ×4 (01:01→20:00)
[2023-01-04] MEDS: SODIUM CHLORIDE 0.9% INJ 10 ML SYR IV SCH ×2 (05:20→18:02)
[2023-01-04 05:43] LABS: BASO % 0.4 % (0.0-1.0); EOS # 0.2 10^3/uL (0.0-0.5); EOS % 3.5 % (0.0-3.0); HEMATOCRIT 38.5 % (36.0-47.0); HEMOGLOBIN 10.7 g/dl (12.0-15.5); LYMPH % 29.4 % (24.0-44.0); MEAN CORPUSCULAR HEMOGLOBIN 25.8 pg (27.0-33.0); MEAN CORPUSCULAR HGB CONC 27.8 g/dl (32.0-36.5); MEAN CORPUSCULAR VOLUME 92.8 fl (80.0-96.0); MONO # 0.5 10^3/uL (0.0-0.8); MONO % 7.3 % (2.0-8.0); NEUTROPHILS % 59.1 % (36.0-66.0); PLATELET COUNT, AUTOMATED 252 10^3/uL (150-450); RED BLOOD COUNT 4.15 10^6/uL (4.00-5.40); WHITE BLOOD COUNT 6.8 10^3/uL (4.0-10.0)
[2023-01-04] MEDS: NORCO, ANEXSIA 5/325MG TABLET (HYDROcodone/ACETAMINOPHEN) PO PRN ×2 (05:48→15:41)
[2023-01-04 06:04] LABS: ABG BASE EXCESS 6.1 (-2.0-2.0); ABG HCO3 32.7 MEQ/L (22.0-26.0); ABG O2 SATURATION 94.2 % (95.0-99.0); ABG PARTIAL PRESSURE O2 77.2 mmHg (75.0-100.0); ABG STANDARD HCO3 29.9 MEQ/L (22.0-26.0); ABG TOTAL CO2 34.4 MEQ/L (23.0-31.0); ABG pH (ARTERIAL) 7.376 UNITS (7.350-7.450)
[2023-01-04 06:13] LABS: ALBUMIN 3.2 G/DL (3.2-5.2); ALKALINE PHOSPHATASE 115 U/L (46-116); ALT/SGPT 16 U/L (7.0-40); AST/SGOT 32 U/L (<34); BILIRUBIN,TOTAL 0.9 MG/DL (0.3-1.2); BLOOD UREA NITROGEN 19 MG/DL (9-23); CALCIUM LEVEL 9.1 MG/DL (8.3-10.6); CARBON DIOXIDE LEVEL 40 MMOL/L (20-31); CHLORIDE LEVEL 96 MMOL/L (98-107); CREATININE FOR GFR 0.61 MG/DL (0.55-1.30); GLOMERULAR FILTRATION RATE > 60.0 (>45); GLUCOSE, FASTING 103 MG/DL (74-106); MAGNESIUM LEVEL 2.2 MG/DL (1.8-2.4); POTASSIUM SERUM 3.4 MMOL/L (3.5-5.1); SODIUM LEVEL 140 MMOL/L (136-145); TOTAL PROTEIN 6.4 G/DL (5.7-8.2)
[2023-01-04 06:32] VITALS: BP 100/66
[2023-01-04] MEDS: INSULIN LISPRO (NovoLOG) PER UNIT SC SCH ×4 (07:30→20:13)
[2023-01-04] MEDS: ADVAIR HFA 45/21MCG INHALER INH SCH ×2 (07:50→20:00)
[2023-01-04] MEDS ORDERED: POTASSIUM CHLORIDE 10MEQ SR TABLET PO ONE (08:00)
[2023-01-04] MEDS: NICOTINE 21MG/24HR 1 EA TRANSDERMAL TD SCH (09:00)
[2023-01-04] MEDS: LIDOCAINE 5% (LIDODERM) PATCH TD SCH (09:00)
[2023-01-04] MEDS: VANICREAM MOISTURIZING SKIN CREAM 113GM TUBE TOP SCH (09:01)
[2023-01-04] MEDS: ASPIRIN 81MG ENTERIC TABLET PO SCH (09:02)
[2023-01-04] MEDS: FAMOTIDINE 20 MG TAB PO SCH (09:02)
[2023-01-04] MEDS: APIXABAN 5 MG TAB (ELIQUIS) PO SCH ×2 (09:02→20:15)
[2023-01-04] MEDS: MAGNESIUM OXIDE 400MG TAB (MAG-OX) PO SCH ×2 (09:02→20:15)
[2023-01-04] MEDS: GABAPENTIN 300 MG CAP PO SCH ×3 (09:02→20:14)
[2023-01-04] MEDS: METOPROLOL TART 25 MG TABLET PO SCH ×2 (09:03→20:16)
[2023-01-04] MEDS: DIGOXIN 0.25 MG TAB PO SCH (09:03)
[2023-01-04] MEDS: ATORVASTATIN 20 MG TAB PO SCH (09:03)
[2023-01-04] MEDS: SODIUM CHLORIDE NASAL 0.65% SPRAY BTL (OCEAN) SCH ×2 (09:04→20:16)
[2023-01-04] MEDS: SERTRALINE HCL 25 MG TABLET PO SCH (09:04)
[2023-01-04] MEDS: POTASSIUM CHLORIDE 10MEQ SR TABLET PO SCH ×2 (10:31→20:15)
[2023-01-04] MEDS: TORSEMIDE 20 MG TAB PO SCH ×2 (10:32→20:14)
[2023-01-04 11:26] VITALS: O2SAT 97
[2023-01-04] MEDS: metOLazone 5 MG TAB PO SCH (12:00)
[2023-01-04 14:31] VITALS: BP 124/79
[2023-01-04] MEDS ORDERED: LACTOBACILLUS ACIDOPHILUS CAP (BACID) PO SCH (18:00)
[2023-01-04 19:45] VITALS: O2SAT 89
[2023-01-04] MEDS: QUEtiapine 300MG XR TABLET (SEROQUEL XR) PO SCH (20:15)
[2023-01-04 20:20] VITALS: BP 114/78
[2023-01-04] MEDS: traMADol 50 MG TAB PO PRN (20:22)
[2023-01-05] MEDS: LEVALBUTEROL 1.25MG 0.5ML CONCENTRATE NEB INH SCH ×4 (01:51→19:59)
[2023-01-05] MEDS: IPRATROPIUM 0.02% SOLN 0.5MG 2.5ML NEB INH SCH ×4 (01:51→19:59)
[2023-01-05] MEDS: SODIUM CHLORIDE 0.9% INJ 10 ML SYR IV SCH ×2 (05:17→17:29)
[2023-01-05 05:25] VITALS: BP 97/65
[2023-01-05 05:58] LABS: BASO % 0.3 % (0.0-1.0); EOS # 0.2 10^3/uL (0.0-0.5); EOS % 3.3 % (0.0-3.0); HEMATOCRIT 37.3 % (36.0-47.0); HEMOGLOBIN 10.6 g/dl (12.0-15.5); LYMPH # 1.9 10^3/uL (1.5-5.0); LYMPH % 28.6 % (24.0-44.0); MEAN CORPUSCULAR HEMOGLOBIN 25.9 pg (27.0-33.0); MEAN CORPUSCULAR HGB CONC 28.4 g/dl (32.0-36.5); MEAN CORPUSCULAR VOLUME 91.2 fl (80.0-96.0); MONO # 0.6 10^3/uL (0.0-0.8); MONO % 8.3 % (2.0-8.0); NEUTROPHILS % 59.4 % (36.0-66.0); PLATELET COUNT, AUTOMATED 240 10^3/uL (150-450); RED BLOOD COUNT 4.09 10^6/uL (4.00-5.40); WHITE BLOOD COUNT 6.8 10^3/uL (4.0-10.0)
[2023-01-05 06:06] LABS: ALBUMIN 3.1 G/DL (3.2-5.2); ALKALINE PHOSPHATASE 123 U/L (46-116); ALT/SGPT 15 U/L (7.0-40); AST/SGOT 26 U/L (<34); BILIRUBIN,TOTAL 0.8 MG/DL (0.3-1.2); BLOOD UREA NITROGEN 27 MG/DL (9-23); CALCIUM LEVEL 8.7 MG/DL (8.3-10.6); CARBON DIOXIDE LEVEL 38 MMOL/L (20-31); CHLORIDE LEVEL 97 MMOL/L (98-107); GLOMERULAR FILTRATION RATE > 60.0 (>45); GLUCOSE, FASTING 124 MG/DL (74-106); MAGNESIUM LEVEL 1.9 MG/DL (1.8-2.4); SODIUM LEVEL 141 MMOL/L (136-145); TOTAL PROTEIN 6.4 G/DL (5.7-8.2)
[2023-01-05 06:54] VITALS: BP 110/71
[2023-01-05] MEDS: traMADol 50 MG TAB PO PRN (06:58)
[2023-01-05] MEDS: ADVAIR HFA 45/21MCG INHALER INH SCH ×2 (07:44→19:58)
[2023-01-05] MEDS: MAGNESIUM OXIDE 400MG TAB (MAG-OX) PO SCH ×2 (08:24→20:34)
[2023-01-05] MEDS: INSULIN LISPRO (NovoLOG) PER UNIT SC SCH ×4 (08:24→20:20)
[2023-01-05] MEDS: NICOTINE 21MG/24HR 1 EA TRANSDERMAL TD SCH (08:24)
[2023-01-05] MEDS: SERTRALINE HCL 25 MG TABLET PO SCH (08:25)
[2023-01-05] MEDS: ASPIRIN 81MG ENTERIC TABLET PO SCH (08:25)
[2023-01-05] MEDS: ATORVASTATIN 20 MG TAB PO SCH (08:25)
[2023-01-05] MEDS: FAMOTIDINE 20 MG TAB PO SCH (08:25)
[2023-01-05] MEDS: DIGOXIN 0.25 MG TAB PO SCH (08:25)
[2023-01-05] MEDS: APIXABAN 5 MG TAB (ELIQUIS) PO SCH ×2 (08:25→20:35)
[2023-01-05] MEDS: TORSEMIDE 20 MG TAB PO SCH ×2 (08:25→20:35)
[2023-01-05] MEDS: GABAPENTIN 300 MG CAP PO SCH ×3 (08:25→20:33)
[2023-01-05] MEDS: VANICREAM MOISTURIZING SKIN CREAM 113GM TUBE TOP SCH (08:26)
[2023-01-05] MEDS: METOPROLOL TART 25 MG TABLET PO SCH ×2 (08:26→20:34)
[2023-01-05] MEDS: LIDOCAINE 5% (LIDODERM) PATCH TD SCH (08:26)
[2023-01-05] MEDS: SODIUM CHLORIDE NASAL 0.65% SPRAY BTL (OCEAN) SCH ×2 (08:27→20:35)
[2023-01-05 09:00] VITALS: O2SAT 90
[2023-01-05] MEDS ORDERED: POTASSIUM CHLORIDE 10MEQ SR TABLET PO ONE (09:00)
[2023-01-05] MEDS: POTASSIUM CHLORIDE 10MEQ SR TABLET PO SCH ×2 (10:30→20:33)
[2023-01-05] MEDS: metOLazone 5 MG TAB PO SCH (13:26)
[2023-01-05] MEDS: NORCO, ANEXSIA 5/325MG TABLET (HYDROcodone/ACETAMINOPHEN) PO PRN ×2 (13:28→21:34)
[2023-01-05] MEDS: QUEtiapine 300MG XR TABLET (SEROQUEL XR) PO SCH (20:32)
[2023-01-05 23:17] VITALS: O2SAT 93
[2023-01-06] MEDS: LEVALBUTEROL 1.25MG 0.5ML CONCENTRATE NEB INH SCH ×4 (00:52→19:06)
[2023-01-06] MEDS: IPRATROPIUM 0.02% SOLN 0.5MG 2.5ML NEB INH SCH ×4 (00:52→19:07)
[2023-01-06] MEDS: SODIUM CHLORIDE 0.9% INJ 10 ML SYR IV SCH ×2 (05:29→17:53)
[2023-01-06 06:00] VITALS: BP 105/68
[2023-01-06 06:07] LABS: BASO % 0.4 % (0.0-1.0); EOS # 0.2 10^3/uL (0.0-0.5); EOS % 2.9 % (0.0-3.0); HEMATOCRIT 38.1 % (36.0-47.0); HEMOGLOBIN 10.9 g/dl (12.0-15.5); LYMPH # 1.8 10^3/uL (1.5-5.0); LYMPH % 26.6 % (24.0-44.0); MEAN CORPUSCULAR HEMOGLOBIN 26.1 pg (27.0-33.0); MEAN CORPUSCULAR HGB CONC 28.6 g/dl (32.0-36.5); MEAN CORPUSCULAR VOLUME 91.1 fl (80.0-96.0); MONO # 0.6 10^3/uL (0.0-0.8); MONO % 8.4 % (2.0-8.0); NEUTROPHILS # 4.2 10^3/uL (1.5-8.5); NEUTROPHILS % 61.3 % (36.0-66.0); PLATELET COUNT, AUTOMATED 226 10^3/uL (150-450); RED BLOOD COUNT 4.18 10^6/uL (4.00-5.40); WHITE BLOOD COUNT 6.9 10^3/uL (4.0-10.0)
[2023-01-06 06:32] LABS: ALBUMIN 3.1 G/DL (3.2-5.2); ALKALINE PHOSPHATASE 127 U/L (46-116); ALT/SGPT 15 U/L (7.0-40); AST/SGOT 27 U/L (<34); BILIRUBIN,TOTAL 0.8 MG/DL (0.3-1.2); BLOOD UREA NITROGEN 27 MG/DL (9-23); CALCIUM LEVEL 8.8 MG/DL (8.3-10.6); CARBON DIOXIDE LEVEL > 40.0 MMOL/L (20-31); CHLORIDE LEVEL 95 MMOL/L (98-107); CREATININE FOR GFR 0.71 MG/DL (0.55-1.30); GLOMERULAR FILTRATION RATE > 60.0 (>45); GLUCOSE, FASTING 107 MG/DL (74-106); MAGNESIUM LEVEL 1.8 MG/DL (1.8-2.4); POTASSIUM SERUM 3.1 MMOL/L (3.5-5.1); SODIUM LEVEL 142 MMOL/L (136-145); TOTAL PROTEIN 6.4 G/DL (5.7-8.2)
[2023-01-06] MEDS: ADVAIR HFA 45/21MCG INHALER INH SCH ×2 (07:28→19:06)
[2023-01-06] MEDS ORDERED: POTASSIUM CHLORIDE 10MEQ SR TABLET PO ONE ×2 (07:45→15:55)
[2023-01-06] MEDS: INSULIN LISPRO (NovoLOG) PER UNIT SC SCH ×4 (08:52→21:00)
[2023-01-06] MEDS: TORSEMIDE 20 MG TAB PO SCH ×2 (08:53→20:16)
[2023-01-06] MEDS: ATORVASTATIN 20 MG TAB PO SCH (08:54)
[2023-01-06] MEDS: METOPROLOL TART 25 MG TABLET PO SCH ×2 (08:54→20:17)
[2023-01-06] MEDS: SERTRALINE HCL 25 MG TABLET PO SCH (08:54)
[2023-01-06] MEDS: GABAPENTIN 300 MG CAP PO SCH ×3 (08:54→20:16)
[2023-01-06] MEDS: FAMOTIDINE 20 MG TAB PO SCH (08:54)
[2023-01-06] MEDS: MAGNESIUM OXIDE 400MG TAB (MAG-OX) PO SCH ×2 (08:54→20:16)
[2023-01-06] MEDS: APIXABAN 5 MG TAB (ELIQUIS) PO SCH ×2 (08:54→20:17)
[2023-01-06] MEDS: DIGOXIN 0.25 MG TAB PO SCH (08:55)
[2023-01-06] MEDS: ASPIRIN 81MG ENTERIC TABLET PO SCH (08:55)
[2023-01-06] MEDS: SODIUM CHLORIDE NASAL 0.65% SPRAY BTL (OCEAN) SCH ×2 (08:55→20:18)
[2023-01-06] MEDS: VANICREAM MOISTURIZING SKIN CREAM 113GM TUBE TOP SCH (08:55)
[2023-01-06] MEDS: NICOTINE 21MG/24HR 1 EA TRANSDERMAL TD SCH (08:57)
[2023-01-06] MEDS: LIDOCAINE 5% (LIDODERM) PATCH TD SCH (08:57)
[2023-01-06 09:00] VITALS: O2SAT 92
[2023-01-06] MEDS: traMADol 50 MG TAB PO PRN ×2 (09:04→17:52)
[2023-01-06] MEDS: POTASSIUM CHLORIDE 10MEQ SR TABLET PO SCH ×2 (10:25→20:16)
[2023-01-06 13:46] VITALS: BP 120/73
[2023-01-06] MEDS: metOLazone 5 MG TAB PO SCH (13:47)
[2023-01-06] MEDS: NORCO, ANEXSIA 5/325MG TABLET (HYDROcodone/ACETAMINOPHEN) PO PRN (13:49)
[2023-01-06 19:09] VITALS: O2SAT 97
[2023-01-06] MEDS: QUEtiapine 300MG XR TABLET (SEROQUEL XR) PO SCH (20:17)
[2023-01-06 20:20] VITALS: BP 113/76
[2023-01-06 23:07] VITALS: O2SAT 93
[2023-01-07] MEDS: LEVALBUTEROL 1.25MG 0.5ML CONCENTRATE NEB INH SCH ×4 (01:09→19:04)
[2023-01-07] MEDS: IPRATROPIUM 0.02% SOLN 0.5MG 2.5ML NEB INH SCH ×4 (01:15→19:03)
[2023-01-07 02:20] VITALS: BP 106/77
[2023-01-07] MEDS: NORCO, ANEXSIA 5/325MG TABLET (HYDROcodone/ACETAMINOPHEN) PO PRN ×2 (02:32→17:49)
[2023-01-07 05:38] VITALS: BP 110/80
[2023-01-07] MEDS: SODIUM CHLORIDE 0.9% INJ 10 ML SYR IV SCH ×2 (05:55→17:39)
[2023-01-07 06:46] LABS: BASO % 0.5 % (0.0-1.0); EOS # 0.3 10^3/uL (0.0-0.5); EOS % 3.3 % (0.0-3.0); HEMATOCRIT 39.7 % (36.0-47.0); HEMOGLOBIN 11.4 g/dl (12.0-15.5); LYMPH # 2.1 10^3/uL (1.5-5.0); LYMPH % 26.2 % (24.0-44.0); MEAN CORPUSCULAR HGB CONC 28.7 g/dl (32.0-36.5); MEAN CORPUSCULAR VOLUME 90.4 fl (80.0-96.0); MONO # 0.7 10^3/uL (0.0-0.8); NEUTROPHILS # 4.9 10^3/uL (1.5-8.5); NEUTROPHILS % 60.7 % (36.0-66.0); PLATELET COUNT, AUTOMATED 239 10^3/uL (150-450); RED BLOOD COUNT 4.39 10^6/uL (4.00-5.40)
[2023-01-07 07:19] LABS: ALBUMIN 3.3 G/DL (3.2-5.2); ALKALINE PHOSPHATASE 132 U/L (46-116); ALT/SGPT 18 U/L (7.0-40); AST/SGOT 45 U/L (<34); BILIRUBIN,TOTAL 0.9 MG/DL (0.3-1.2); BLOOD UREA NITROGEN 28 MG/DL (9-23); CALCIUM LEVEL 8.6 MG/DL (8.3-10.6); CARBON DIOXIDE LEVEL > 40.0 MMOL/L (20-31); CHLORIDE LEVEL 94 MMOL/L (98-107); CREATININE FOR GFR 0.68 MG/DL (0.55-1.30); GLOMERULAR FILTRATION RATE > 60.0 (>45); GLUCOSE, FASTING 121 MG/DL (74-106); MAGNESIUM LEVEL 1.8 MG/DL (1.8-2.4); POTASSIUM SERUM 3.6 MMOL/L (3.5-5.1); SODIUM LEVEL 142 MMOL/L (136-145); TOTAL PROTEIN 6.9 G/DL (5.7-8.2)
[2023-01-07] MEDS: ADVAIR HFA 45/21MCG INHALER INH SCH ×2 (07:44→19:09)
[2023-01-07] MEDS: LIDOCAINE 5% (LIDODERM) PATCH TD SCH (08:57)
[2023-01-07 09:00] VITALS: O2SAT 92
[2023-01-07] MEDS: SODIUM CHLORIDE NASAL 0.65% SPRAY BTL (OCEAN) SCH ×2 (09:00→20:36)
[2023-01-07] MEDS: INSULIN LISPRO (NovoLOG) PER UNIT SC SCH ×4 (09:30→21:00)
[2023-01-07] MEDS: NICOTINE 21MG/24HR 1 EA TRANSDERMAL TD SCH (09:30)
[2023-01-07] MEDS: POTASSIUM CHLORIDE 10MEQ SR TABLET PO SCH ×2 (09:31→20:35)
[2023-01-07] MEDS: FAMOTIDINE 20 MG TAB PO SCH (09:31)
[2023-01-07] MEDS: MAGNESIUM OXIDE 400MG TAB (MAG-OX) PO SCH ×2 (09:31→20:35)
[2023-01-07] MEDS: ATORVASTATIN 20 MG TAB PO SCH (09:31)
[2023-01-07] MEDS: DIGOXIN 0.25 MG TAB PO SCH (09:32)
[2023-01-07] MEDS: APIXABAN 5 MG TAB (ELIQUIS) PO SCH ×2 (09:33→20:36)
[2023-01-07] MEDS: GABAPENTIN 300 MG CAP PO SCH ×3 (09:34→20:36)
[2023-01-07] MEDS: METOPROLOL TART 25 MG TABLET PO SCH ×2 (09:34→20:37)
[2023-01-07] MEDS: TORSEMIDE 20 MG TAB PO SCH (09:36)
[2023-01-07] MEDS: traMADol 50 MG TAB PO PRN (09:37)
[2023-01-07] MEDS: SERTRALINE HCL 25 MG TABLET PO SCH (09:39)
[2023-01-07] MEDS: ASPIRIN 81MG ENTERIC TABLET PO SCH (09:39)
[2023-01-07] MEDS: VANICREAM MOISTURIZING SKIN CREAM 113GM TUBE TOP SCH (09:40)
[2023-01-07] MEDS: metOLazone 5 MG TAB PO SCH (13:03)
[2023-01-07] MEDS: QUEtiapine 300MG XR TABLET (SEROQUEL XR) PO SCH (20:56)
[2023-01-08] MEDS: LEVALBUTEROL 1.25MG 0.5ML CONCENTRATE NEB INH SCH ×4 (01:40→19:44)
[2023-01-08] MEDS: IPRATROPIUM 0.02% SOLN 0.5MG 2.5ML NEB INH SCH ×4 (01:40→19:44)
[2023-01-08] MEDS: SODIUM CHLORIDE 0.9% INJ 10 ML SYR IV SCH (05:03)
[2023-01-08 05:30] VITALS: BP 117/74
[2023-01-08 06:32] LABS: BLOOD UREA NITROGEN 28 MG/DL (9-23); CALCIUM LEVEL 8.9 MG/DL (8.3-10.6); CARBON DIOXIDE LEVEL > 40.0 MMOL/L (20-31); CHLORIDE LEVEL 96 MMOL/L (98-107); CREATININE FOR GFR 0.73 MG/DL (0.55-1.30); GLOMERULAR FILTRATION RATE > 60.0 (>45); GLUCOSE, FASTING 118 MG/DL (74-106); POTASSIUM SERUM 3.3 MMOL/L (3.5-5.1); SODIUM LEVEL 143 MMOL/L (136-145)
[2023-01-08] MEDS: ADVAIR HFA 45/21MCG INHALER INH SCH ×2 (08:14→19:44)
[2023-01-08] MEDS: SERTRALINE HCL 25 MG TABLET PO SCH (08:49)
[2023-01-08] MEDS: POTASSIUM CHLORIDE 10MEQ SR TABLET PO SCH ×2 (08:49→20:22)
[2023-01-08] MEDS: FAMOTIDINE 20 MG TAB PO SCH (08:50)
[2023-01-08] MEDS: NICOTINE 21MG/24HR 1 EA TRANSDERMAL TD SCH ×2 (08:50→09:30)
[2023-01-08] MEDS: ATORVASTATIN 20 MG TAB PO SCH (08:51)
[2023-01-08] MEDS: APIXABAN 5 MG TAB (ELIQUIS) PO SCH ×2 (08:52→20:21)
[2023-01-08] MEDS: GABAPENTIN 300 MG CAP PO SCH ×3 (08:52→20:22)
[2023-01-08] MEDS: TORSEMIDE 20 MG TAB PO SCH (08:52)
[2023-01-08] MEDS: MAGNESIUM OXIDE 400MG TAB (MAG-OX) PO SCH ×2 (08:52→20:21)
[2023-01-08] MEDS: ASPIRIN 81MG ENTERIC TABLET PO SCH (08:52)
[2023-01-08] MEDS: DIGOXIN 0.25 MG TAB PO SCH (08:53)
[2023-01-08] MEDS: METOPROLOL TART 25 MG TABLET PO SCH ×2 (08:54→20:22)
[2023-01-08] MEDS: NORCO, ANEXSIA 5/325MG TABLET (HYDROcodone/ACETAMINOPHEN) PO PRN ×2 (08:56→20:36)
[2023-01-08] MEDS: VANICREAM MOISTURIZING SKIN CREAM 113GM TUBE TOP SCH (08:57)
[2023-01-08] MEDS: INSULIN LISPRO (NovoLOG) PER UNIT SC SCH ×4 (08:58→20:32)
[2023-01-08] MEDS: LIDOCAINE 5% (LIDODERM) PATCH TD SCH (09:00)
[2023-01-08] MEDS: SODIUM CHLORIDE NASAL 0.65% SPRAY BTL (OCEAN) SCH ×2 (09:09→20:36)
[2023-01-08] MEDS ORDERED: POTASSIUM CHLORIDE 10MEQ SR TABLET PO ONE (10:15)
[2023-01-08] MEDS: metOLazone 5 MG TAB PO SCH (11:58)
[2023-01-08] MEDS: traMADol 50 MG TAB PO PRN (16:22)
[2023-01-08] MEDS: QUEtiapine 300MG XR TABLET (SEROQUEL XR) PO SCH (20:21)
[2023-01-08 20:23] VITALS: BP 131/84
[2023-01-09 01:26] VITALS: O2SAT 91
[2023-01-09] MEDS: IPRATROPIUM 0.02% SOLN 0.5MG 2.5ML NEB INH SCH ×4 (02:06→19:39)
[2023-01-09] MEDS: LEVALBUTEROL 1.25MG 0.5ML CONCENTRATE NEB INH SCH ×4 (02:07→19:39)
[2023-01-09 02:18] VITALS: O2SAT 97
[2023-01-09 05:40] VITALS: BP 122/84
[2023-01-09] MEDS: ADVAIR HFA 45/21MCG INHALER INH SCH ×2 (07:59→19:39)
[2023-01-09] MEDS: SODIUM CHLORIDE NASAL 0.65% SPRAY BTL (OCEAN) SCH ×2 (08:40→20:12)
[2023-01-09] MEDS: FAMOTIDINE 20 MG TAB PO SCH (08:40)
[2023-01-09] MEDS: LIDOCAINE 5% (LIDODERM) PATCH TD SCH (08:40)
[2023-01-09] MEDS: POTASSIUM CHLORIDE 10MEQ SR TABLET PO SCH ×2 (08:40→20:11)
[2023-01-09] MEDS: APIXABAN 5 MG TAB (ELIQUIS) PO SCH ×2 (08:41→20:12)
[2023-01-09] MEDS: GABAPENTIN 300 MG CAP PO SCH ×3 (08:41→20:11)
[2023-01-09] MEDS: ATORVASTATIN 20 MG TAB PO SCH (08:41)
[2023-01-09] MEDS: METOPROLOL TART 25 MG TABLET PO SCH ×2 (08:41→20:12)
[2023-01-09] MEDS: NORCO, ANEXSIA 5/325MG TABLET (HYDROcodone/ACETAMINOPHEN) PO PRN (08:41)
[2023-01-09] MEDS: DIGOXIN 0.25 MG TAB PO SCH (08:41)
[2023-01-09] MEDS: SERTRALINE HCL 25 MG TABLET PO SCH (08:41)
[2023-01-09] MEDS: INSULIN LISPRO (NovoLOG) PER UNIT SC SCH ×4 (08:42→20:20)
[2023-01-09] MEDS: TORSEMIDE 20 MG TAB PO SCH (08:42)
[2023-01-09] MEDS: ASPIRIN 81MG ENTERIC TABLET PO SCH (08:42)
[2023-01-09] MEDS: MAGNESIUM OXIDE 400MG TAB (MAG-OX) PO SCH ×2 (08:42→20:11)
[2023-01-09] MEDS: VANICREAM MOISTURIZING SKIN CREAM 113GM TUBE TOP SCH (08:43)
[2023-01-09] MEDS: NICOTINE 21MG/24HR 1 EA TRANSDERMAL TD SCH (08:52)
[2023-01-09 10:42] VITALS: O2SAT 91
[2023-01-09] MEDS: metOLazone 5 MG TAB PO SCH (12:27)
[2023-01-09] MEDS: traMADol 50 MG TAB PO PRN (20:11)
[2023-01-09] MEDS: QUEtiapine 300MG XR TABLET (SEROQUEL XR) PO SCH (20:11)
[2023-01-10] MEDS: IPRATROPIUM 0.02% SOLN 0.5MG 2.5ML NEB INH SCH ×4 (00:58→19:38)
[2023-01-10] MEDS: LEVALBUTEROL 1.25MG 0.5ML CONCENTRATE NEB INH SCH ×4 (00:58→19:38)
[2023-01-10 06:00] VITALS: BP 105/67
[2023-01-10] MEDS: ADVAIR HFA 45/21MCG INHALER INH SCH ×2 (08:05→19:38)
[2023-01-10] MEDS: INSULIN LISPRO (NovoLOG) PER UNIT SC SCH ×4 (08:22→19:53)
[2023-01-10] MEDS: NICOTINE 21MG/24HR 1 EA TRANSDERMAL TD SCH (08:23)
[2023-01-10] MEDS: SERTRALINE HCL 25 MG TABLET PO SCH (08:24)
[2023-01-10] MEDS: GABAPENTIN 300 MG CAP PO SCH ×3 (08:24→20:05)
[2023-01-10] MEDS: ASPIRIN 81MG ENTERIC TABLET PO SCH (08:24)
[2023-01-10] MEDS: FAMOTIDINE 20 MG TAB PO SCH (08:24)
[2023-01-10] MEDS: DIGOXIN 0.25 MG TAB PO SCH (08:25)
[2023-01-10] MEDS: APIXABAN 5 MG TAB (ELIQUIS) PO SCH ×2 (08:25→20:05)
[2023-01-10] MEDS: ATORVASTATIN 20 MG TAB PO SCH (08:25)
[2023-01-10] MEDS: MAGNESIUM OXIDE 400MG TAB (MAG-OX) PO SCH ×2 (08:25→20:05)
[2023-01-10] MEDS: METOPROLOL TART 25 MG TABLET PO SCH ×2 (08:26→20:05)
[2023-01-10] MEDS: LIDOCAINE 5% (LIDODERM) PATCH TD SCH (08:26)
[2023-01-10] MEDS: SODIUM CHLORIDE NASAL 0.65% SPRAY BTL (OCEAN) SCH ×2 (08:27→20:06)
[2023-01-10] MEDS: POTASSIUM CHLORIDE 10MEQ SR TABLET PO SCH ×2 (08:27→20:05)
[2023-01-10] MEDS: TORSEMIDE 20 MG TAB PO SCH (08:27)
[2023-01-10] MEDS: VANICREAM MOISTURIZING SKIN CREAM 113GM TUBE TOP SCH (08:27)
[2023-01-10 09:46] VITALS: O2SAT 95
[2023-01-10] MEDS: traMADol 50 MG TAB PO PRN (13:03)
[2023-01-10] MEDS: metOLazone 5 MG TAB PO SCH (13:03)
[2023-01-10] MEDS: NORCO, ANEXSIA 5/325MG TABLET (HYDROcodone/ACETAMINOPHEN) PO PRN (17:21)
[2023-01-10] MEDS: QUEtiapine 300MG XR TABLET (SEROQUEL XR) PO SCH (20:05)
[2023-01-10 22:21] VITALS: O2SAT 90
[2023-01-11] MEDS: LEVALBUTEROL 1.25MG 0.5ML CONCENTRATE NEB INH SCH ×4 (01:15→20:00)
[2023-01-11] MEDS: IPRATROPIUM 0.02% SOLN 0.5MG 2.5ML NEB INH SCH ×4 (01:15→20:00)
[2023-01-11 06:00] VITALS: BP 124/76
[2023-01-11] MEDS: ADVAIR HFA 45/21MCG INHALER INH SCH ×2 (07:41→19:59)
[2023-01-11] MEDS: NORCO, ANEXSIA 5/325MG TABLET (HYDROcodone/ACETAMINOPHEN) PO PRN ×2 (08:12→16:37)
[2023-01-11 08:23] VITALS: BP 114/70
[2023-01-11 08:41] LABS: BLOOD UREA NITROGEN 21 MG/DL (9-23); CALCIUM LEVEL 9.3 MG/DL (8.3-10.6); CARBON DIOXIDE LEVEL > 40.0 MMOL/L (20-31); CHLORIDE LEVEL 93 MMOL/L (98-107); GLOMERULAR FILTRATION RATE > 60.0 (>45); GLUCOSE, FASTING 118 MG/DL (74-106); POTASSIUM SERUM 3.6 MMOL/L (3.5-5.1); SODIUM LEVEL 141 MMOL/L (136-145)
[2023-01-11] MEDS: LIDOCAINE 5% (LIDODERM) PATCH TD SCH (09:00)
[2023-01-11] MEDS: ATORVASTATIN 20 MG TAB PO SCH (09:29)
[2023-01-11] MEDS: POTASSIUM CHLORIDE 10MEQ SR TABLET PO SCH ×2 (09:30→20:37)
[2023-01-11] MEDS: SERTRALINE HCL 25 MG TABLET PO SCH (09:30)
[2023-01-11] MEDS: MAGNESIUM OXIDE 400MG TAB (MAG-OX) PO SCH ×2 (09:31→20:36)
[2023-01-11] MEDS: TORSEMIDE 20 MG TAB PO SCH (09:31)
[2023-01-11] MEDS: ASPIRIN 81MG ENTERIC TABLET PO SCH (09:31)
[2023-01-11] MEDS: FAMOTIDINE 20 MG TAB PO SCH (09:32)
[2023-01-11] MEDS: GABAPENTIN 300 MG CAP PO SCH ×3 (09:32→20:36)
[2023-01-11] MEDS: APIXABAN 5 MG TAB (ELIQUIS) PO SCH ×2 (09:33→20:38)
[2023-01-11] MEDS: METOPROLOL TART 25 MG TABLET PO SCH ×2 (09:33→20:37)
[2023-01-11] MEDS: DIGOXIN 0.25 MG TAB PO SCH (09:33)
[2023-01-11] MEDS: NICOTINE 21MG/24HR 1 EA TRANSDERMAL TD SCH (09:34)
[2023-01-11] MEDS: SODIUM CHLORIDE NASAL 0.65% SPRAY BTL (OCEAN) SCH ×2 (09:36→20:38)
[2023-01-11] MEDS: INSULIN LISPRO (NovoLOG) PER UNIT SC SCH ×4 (09:36→21:00)
[2023-01-11] MEDS: VANICREAM MOISTURIZING SKIN CREAM 113GM TUBE TOP SCH (09:37)
[2023-01-11] MEDS: metOLazone 5 MG TAB PO SCH (12:04)
[2023-01-11] MEDS: QUEtiapine 300MG XR TABLET (SEROQUEL XR) PO SCH (20:37)
[2023-01-12] MEDS: IPRATROPIUM 0.02% SOLN 0.5MG 2.5ML NEB INH SCH ×5 (01:37→20:00)
[2023-01-12] MEDS: LEVALBUTEROL 1.25MG 0.5ML CONCENTRATE NEB INH SCH ×4 (01:38→19:28)
[2023-01-12] MEDS: INSULIN LISPRO (NovoLOG) PER UNIT SC SCH ×4 (07:55→20:46)
[2023-01-12] MEDS: METOPROLOL TART 25 MG TABLET PO SCH ×2 (07:57→20:43)
[2023-01-12] MEDS: APIXABAN 5 MG TAB (ELIQUIS) PO SCH ×2 (07:57→20:43)
[2023-01-12] MEDS: ASPIRIN 81MG ENTERIC TABLET PO SCH (07:57)
[2023-01-12] MEDS: FAMOTIDINE 20 MG TAB PO SCH (07:57)
[2023-01-12] MEDS: ATORVASTATIN 20 MG TAB PO SCH (07:58)
[2023-01-12] MEDS: TORSEMIDE 20 MG TAB PO SCH (07:58)
[2023-01-12] MEDS: GABAPENTIN 300 MG CAP PO SCH ×3 (07:59→20:42)
[2023-01-12] MEDS: SERTRALINE HCL 25 MG TABLET PO SCH (07:59)
[2023-01-12] MEDS: POTASSIUM CHLORIDE 10MEQ SR TABLET PO SCH ×2 (07:59→20:42)
[2023-01-12] MEDS: NICOTINE 21MG/24HR 1 EA TRANSDERMAL TD SCH (08:00)
[2023-01-12] MEDS: DIGOXIN 0.25 MG TAB PO SCH (08:00)
[2023-01-12] MEDS: MAGNESIUM OXIDE 400MG TAB (MAG-OX) PO SCH ×2 (08:00→20:41)
[2023-01-12] MEDS: SODIUM CHLORIDE NASAL 0.65% SPRAY BTL (OCEAN) SCH ×2 (08:01→20:44)
[2023-01-12] MEDS: LIDOCAINE 5% (LIDODERM) PATCH TD SCH (08:01)
[2023-01-12] MEDS: NORCO, ANEXSIA 5/325MG TABLET (HYDROcodone/ACETAMINOPHEN) PO PRN ×2 (08:02→15:47)
[2023-01-12] MEDS: VANICREAM MOISTURIZING SKIN CREAM 113GM TUBE TOP SCH (08:07)
[2023-01-12] MEDS: ADVAIR HFA 45/21MCG INHALER INH SCH ×2 (08:35→19:23)
[2023-01-12] MEDS: metOLazone 5 MG TAB PO SCH (11:54)
[2023-01-12 12:54] VITALS: O2SAT 92
[2023-01-12] MEDS: QUEtiapine 300MG XR TABLET (SEROQUEL XR) PO SCH (20:42)
[2023-01-12 23:00] VITALS: O2SAT 88
[2023-01-13] MEDS: IPRATROPIUM 0.02% SOLN 0.5MG 2.5ML NEB INH SCH ×3 (02:00→13:37)
[2023-01-13] MEDS: LEVALBUTEROL 1.25MG 0.5ML CONCENTRATE NEB INH SCH ×3 (02:00→13:37)
[2023-01-13 05:20] VITALS: BP 105/63
[2023-01-13] MEDS: traMADol 50 MG TAB PO PRN (05:34)
[2023-01-13] MEDS: GABAPENTIN 300 MG CAP PO SCH (07:54)
[2023-01-13] MEDS: MAGNESIUM OXIDE 400MG TAB (MAG-OX) PO SCH (07:54)
[2023-01-13] MEDS: ATORVASTATIN 20 MG TAB PO SCH (07:55)
[2023-01-13] MEDS: ASPIRIN 81MG ENTERIC TABLET PO SCH (07:55)
[2023-01-13] MEDS: POTASSIUM CHLORIDE 10MEQ SR TABLET PO SCH (07:55)
[2023-01-13 07:56] VITALS: BP 105/63
[2023-01-13] MEDS: DIGOXIN 0.25 MG TAB PO SCH (07:56)
[2023-01-13] MEDS: APIXABAN 5 MG TAB (ELIQUIS) PO SCH (07:56)
[2023-01-13] MEDS: METOPROLOL TART 25 MG TABLET PO SCH (07:56)
[2023-01-13] MEDS: SERTRALINE HCL 25 MG TABLET PO SCH (07:57)
[2023-01-13] MEDS: TORSEMIDE 20 MG TAB PO SCH (07:57)
[2023-01-13] MEDS: FAMOTIDINE 20 MG TAB PO SCH (07:57)
[2023-01-13] MEDS: VANICREAM MOISTURIZING SKIN CREAM 113GM TUBE TOP SCH (07:58)
[2023-01-13] MEDS: SODIUM CHLORIDE NASAL 0.65% SPRAY BTL (OCEAN) SCH (07:58)
[2023-01-13] MEDS: NICOTINE 21MG/24HR 1 EA TRANSDERMAL TD SCH (07:59)
[2023-01-13] MEDS: INSULIN LISPRO (NovoLOG) PER UNIT SC SCH ×2 (08:07→12:40)
[2023-01-13] MEDS: LIDOCAINE 5% (LIDODERM) PATCH TD SCH (08:07)
[2023-01-13] MEDS: ADVAIR HFA 45/21MCG INHALER INH SCH (08:23)
[2023-01-13 11:09] VITALS: BP 132/65
[2023-01-13] MEDS: NORCO, ANEXSIA 5/325MG TABLET (HYDROcodone/ACETAMINOPHEN) PO PRN (12:40)
[2023-01-13] MEDS: metOLazone 5 MG TAB PO SCH (12:41)
[2023-01-13] MEDS ORDERED: METO5TA PO (14:35)
[2023-01-13] MEDS ORDERED: METO1TAB87 PO (14:35)
[2023-01-13] MEDS ORDERED: POTA-136 PO (14:35)
[2023-01-13] MEDS ORDERED: DIGO0.253 PO (14:35)
[2023-01-13] MEDS ORDERED: MAGN400T2 PO (14:35)
[2023-01-13] MEDS ORDERED: QUET300T93 PO (14:35)
[2023-01-13] MEDS ORDERED: TRAM50TA2 PO (14:35)
[2023-01-13] MEDS ORDERED: GABA-282 PO (14:35)
[2023-01-13] MEDS ORDERED: RAME8TAB2 PO (14:35)
[2023-01-13] MEDS ORDERED: TORS20TA2 PO (14:35)
== END 2023-01-13 15:42 | disposition home health service (06) | DRG 469 ==
LOC: EDBD 13:34 → M ED 13:34 → M ED INP 16:25 → ENRESERV 16:54 → M PCU 18:27 → M MS5PR 12-17 18:29 → M MSPAV 12-29 22:50
PROVIDERS: ADMIT Internal Medicine; ATTEND Family Medicine
PROC: 02HV33Z Insertion of Infusion Device into Superior Vena Cava, Percutaneous Approach (ICD-10-PCS; principal; 2022-12-24 15:00)
DX: N17.9 Acute kidney failure, unspecified (principal); J96.11 Chronic respiratory failure with hypoxia; I27.81 Cor pulmonale (chronic); J96.12 Chronic respiratory failure with hypercapnia; J84.10 Pulmonary fibrosis, unspecified; E83.42 Hypomagnesemia; E66.2 Morbid (severe) obesity with alveolar hypoventilation; Z99.81 Dependence on supplemental oxygen; I48.91 Unspecified atrial fibrillation; E87.5 Hyperkalemia; J44.9 Chronic obstructive pulmonary disease, unspecified; G47.33 Obstructive sleep apnea (adult) (pediatric); Z79.899 Other long term (current) drug therapy; Z79.82 Long term (current) use of aspirin; Z88.0 Allergy status to penicillin; Z91.119 Patient's noncompliance with dietary regimen due to unspecified reason; Z79.01 Long term (current) use of anticoagulants; F41.9 Anxiety disorder, unspecified; F32.A Depression, unspecified; K21.9 Gastro-esophageal reflux disease without esophagitis; F17.200 Nicotine dependence, unspecified, uncomplicated; I87.8 Other specified disorders of veins; D72.829 Elevated white blood cell count, unspecified; E11.9 Type 2 diabetes mellitus without complications; L30.4 Erythema intertrigo; Z66 Do not resuscitate; M54.50 Low back pain, unspecified; E78.5 Hyperlipidemia, unspecified; M17.2 Bilateral post-traumatic osteoarthritis of knee

== ENCOUNTER → 2023-02-28 | Outpatient (CLI) | payer OTHER ==
[~2023-02-28] MED LIST changes: +ADME100I2 SC; +FAMO20TA5 PO; +METO5TA PO; +POTA-136 PO; +QUET300T93 PO; +RAME8TAB2 PO; +TRAM50TA2 PO
== END ==
LOC: M PAIN 10:15
PROVIDERS: ATTEND Nurse Practitioner Family
DX: M79.2 Neuralgia and neuritis, unspecified (principal); M51.16 Intervertebral disc disorders with radiculopathy, lumbar region; G89.29 Other chronic pain; E11.9 Type 2 diabetes mellitus without complications; I10 Essential (primary) hypertension; J44.9 Chronic obstructive pulmonary disease, unspecified; K21.9 Gastro-esophageal reflux disease without esophagitis; F17.210 Nicotine dependence, cigarettes, uncomplicated; Z86.14 Personal history of Methicillin resistant Staphylococcus aureus infection; Z86.59 Personal history of other mental and behavioral disorders; Z88.0 Allergy status to penicillin; Z79.01 Long term (current) use of anticoagulants; Z79.51 Long term (current) use of inhaled steroids; Z79.84 Long term (current) use of oral hypoglycemic drugs; Z79.891 Long term (current) use of opiate analgesic; Z79.899 Other long term (current) drug therapy

== ENCOUNTER → 2023-04-17 | Outpatient (REF) | payer OTHER ==
[2023-04-17 16:25] LABS: HEMATOCRIT 38.5 % (36.0-47.0); HEMOGLOBIN 11.8 g/dl (12.0-15.5); MEAN CORPUSCULAR HEMOGLOBIN 28.2 pg (27.0-33.0); MEAN CORPUSCULAR HGB CONC 30.6 g/dl (32.0-36.5); MEAN CORPUSCULAR VOLUME 91.9 fl (80.0-96.0); PLATELET COUNT, AUTOMATED 214 10^3/uL (150-450); RED BLOOD COUNT 4.19 10^6/uL (4.00-5.40)
[2023-04-17 17:20] LABS: ALBUMIN 3.2 G/DL (3.2-5.2); ALKALINE PHOSPHATASE 123 U/L (46-116); ALT/SGPT 18 U/L (7.0-40); AST/SGOT 13 U/L (<34); BILIRUBIN,TOTAL 0.5 MG/DL (0.3-1.2); BLOOD UREA NITROGEN 30 MG/DL (9-23); CALCIUM LEVEL 8.8 MG/DL (8.3-10.6); CARBON DIOXIDE LEVEL > 40.0 MMOL/L (20-31); CHLORIDE LEVEL 94 MMOL/L (98-107); CREATININE FOR GFR 1.46 MG/DL (0.55-1.30); DIGOXIN LEVEL 2.6 NG/ML (0.8-2.0); GLOMERULAR FILTRATION RATE 38.5 (>45); GLUCOSE, FASTING 84 MG/DL (74-106); POTASSIUM SERUM 3.7 MMOL/L (3.5-5.1); SODIUM LEVEL 140 MMOL/L (136-145)
[2023-04-18 14:19] LABS: IRON (FE) 49 UG/DL (50-170)
[2023-04-18 14:21] LABS: THYROID STIMULATING HORMONE 0.912 uIU/ML (0.55-4.78)
[2023-04-18 14:22] LABS: FOLATE 6.77 NG/ML (>5.4); VITAMIN B12 LEVEL 244 PG/ML (211-911)
== END ==
LOC: M SHH 15:59
PROVIDERS: ATTEND Internal Medicine
DX: E11.9 Type 2 diabetes mellitus without complications (principal); Z79.899 Other long term (current) drug therapy; D64.9 Anemia, unspecified

== ENCOUNTER → 2023-04-21 | Outpatient (CLI) | payer OTHER | LOC: M PAIN 10:45 | PROVIDERS: ATTEND Nurse Practitioner Family | DX: M79.2 Neuralgia and neuritis, unspecified (principal); G89.29 Other chronic pain; E11.9 Type 2 diabetes mellitus without complications; I10 Essential (primary) hypertension; J44.9 Chronic obstructive pulmonary disease, unspecified; K21.9 Gastro-esophageal reflux disease without esophagitis; F17.210 Nicotine dependence, cigarettes, uncomplicated; Z86.14 Personal history of Methicillin resistant Staphylococcus aureus infection; Z86.59 Personal history of other mental and behavioral disorders; Z79.01 Long term (current) use of anticoagulants; Z79.51 Long term (current) use of inhaled steroids; Z79.84 Long term (current) use of oral hypoglycemic drugs; Z79.899 Other long term (current) drug therapy ==

== ENCOUNTER → 2023-05-01 | Outpatient (CLI) | payer OTHER | LOC: M RAD 10:14 | PROVIDERS: ATTEND Nurse Practitioner Adult Health | DX: J44.9 Chronic obstructive pulmonary disease, unspecified (principal); R91.8 Other nonspecific abnormal finding of lung field ==

== ENCOUNTER → 2023-05-01 | Outpatient (CLI) | payer OTHER ==
[2023-05-01 11:16] LABS: HEMATOCRIT 35.9 % (36.0-47.0); HEMOGLOBIN 11.2 g/dl (12.0-15.5); MEAN CORPUSCULAR HEMOGLOBIN 28.1 pg (27.0-33.0); MEAN CORPUSCULAR HGB CONC 31.2 g/dl (32.0-36.5); MEAN CORPUSCULAR VOLUME 90.2 fl (80.0-96.0); PLATELET COUNT, AUTOMATED 207 10^3/uL (150-450); RED BLOOD COUNT 3.98 10^6/uL (4.00-5.40); WHITE BLOOD COUNT 8.8 10^3/uL (4.0-10.0)
[2023-05-01 11:26] LABS: HEMOGLOBIN A1c 4.9 % (4.0-6.0)
[2023-05-01 12:12] LABS: ALBUMIN 3.6 G/DL (3.2-5.2); BILIRUBIN,TOTAL 0.5 MG/DL (0.3-1.2); CALCIUM LEVEL 8.2 MG/DL (8.3-10.6); CREATININE FOR GFR 1.15 MG/DL (0.55-1.30); DIGOXIN LEVEL 1.9 NG/ML (0.8-2.0); GLOMERULAR FILTRATION RATE 50.7 (>45); POTASSIUM SERUM 3.1 MMOL/L (3.5-5.1); TOTAL PROTEIN 6.8 G/DL (5.7-8.2)
== END ==
LOC: M LAB 10:11
PROVIDERS: ATTEND Internal Medicine
DX: E11.9 Type 2 diabetes mellitus without complications (principal); Z79.899 Other long term (current) drug therapy

== ENCOUNTER → 2023-05-13 | Outpatient (CLI) | payer OTHER ==
[2023-05-13 19:27] LABS: CREATININE FOR GFR 1.16 MG/DL (0.55-1.30); GLOMERULAR FILTRATION RATE 50.2 (>45)
== END ==
LOC: M LAB 18:26
PROVIDERS: ATTEND Nurse Practitioner Adult Health
DX: R91.8 Other nonspecific abnormal finding of lung field (principal)

== ENCOUNTER → 2023-05-21 | Outpatient (CLI) | payer OTHER ==
[~2023-05-21] MED LIST changes: +ISOVUE-370 76% 100ML VIAL ONE
== END ==
LOC: M PLAIMG 13:01
PROVIDERS: ATTEND Nurse Practitioner Adult Health
DX: J98.4 Other disorders of lung (principal); J84.9 Interstitial pulmonary disease, unspecified
CPT/HCPCS: 71260; Q9967

== ENCOUNTER → 2023-06-12 | Outpatient (CLI) | payer OTHER ==
[~2023-06-12] MED LIST changes: -ISOVUE-370 76% 100ML VIAL ONE
== END ==
LOC: M SLEEP 20:00
PROVIDERS: ATTEND Nurse Practitioner Adult Health
DX: G47.33 Obstructive sleep apnea (adult) (pediatric) (principal)

== ENCOUNTER → 2023-07-28 | Outpatient (CLI) | payer OTHER ==
[~2023-07-28] MED LIST changes: -GABA-283 PO; +GABA-284 PO
== END ==
LOC: M PAIN 14:30
PROVIDERS: ATTEND Nurse Practitioner Family
DX: M79.2 Neuralgia and neuritis, unspecified (principal); G89.29 Other chronic pain; I10 Essential (primary) hypertension; J44.9 Chronic obstructive pulmonary disease, unspecified; K21.9 Gastro-esophageal reflux disease without esophagitis; F17.210 Nicotine dependence, cigarettes, uncomplicated; Z86.14 Personal history of Methicillin resistant Staphylococcus aureus infection; Z86.59 Personal history of other mental and behavioral disorders; Z79.01 Long term (current) use of anticoagulants; Z79.84 Long term (current) use of oral hypoglycemic drugs; Z79.899 Other long term (current) drug therapy

== ENCOUNTER 2023-09-01 12:14 | Inpatient (IN) | payer OTHER ==
[~2023-09-01] VITALS: Ht 177.8 cm; Wt 141.7 kg
[2023-09-01] MEDS ORDERED: methylPREDNISolone 125MG 2ML VIAL IV ONE (13:00)
[2023-09-01] MEDS: IPRATROPIUM 0.5MG/ALBUTEROL 2.5MG INH SOL UD 3ML (DUONEB) NEB PRN ×4 (13:22→22:10)
[2023-09-01 13:48] LABS: VENOUS BASE EXCESS -0.5 (-2.0-2.0); VENOUS HCO3 27.4 MMOL/L (23.0-27.0); VENOUS O2 SATURATION 86.8 % (60.0-80.0); VENOUS PARTIAL PRESSURE CO2 60.3 mmHg (38.0-50.0); VENOUS PARTIAL PRESSURE O2 60.7 mmHg (30.0-50.0); VENOUS PH 7.275 UNITS (7.330-7.430); VENOUS STANDARD HCO3 23.9 MMOL/L; VENOUS TOTAL CO2 29.2 MMOL/L (24.0-28.0)
[2023-09-01 13:54] LABS: BASO % 0.1 % (0.0-1.0); HEMATOCRIT 36.4 % (36.0-47.0); HEMOGLOBIN 10.6 g/dl (12.0-15.5); LYMPH # 0.9 10^3/uL (1.5-5.0); LYMPH % 6.6 % (24.0-44.0); MEAN CORPUSCULAR HEMOGLOBIN 26.6 pg (27.0-33.0); MEAN CORPUSCULAR HGB CONC 29.1 g/dl (32.0-36.5); MEAN CORPUSCULAR VOLUME 91.2 fl (80.0-96.0); MONO # 0.8 10^3/uL (0.0-0.8); MONO % 6.5 % (2.0-8.0); NEUTROPHILS # 11.2 10^3/uL (1.5-8.5); NEUTROPHILS % 86.2 % (36.0-66.0); PLATELET COUNT, AUTOMATED 177 10^3/uL (150-450); RED BLOOD COUNT 3.99 10^6/uL (4.00-5.40); WHITE BLOOD COUNT 12.9 10^3/uL (4.0-10.0)
[2023-09-01 14:04] LABS: INR 1.44; PROTHROMBIN TIME 17.2 SECONDS (12.5-14.5)
[2023-09-01] MEDS ORDERED: cefTRIAXone SOD 2 GM in D5W MINI-BAG PLUS 50 ML IV ONE (14:20)
[2023-09-01] MEDS ORDERED: AZITHROMYCIN INJ 500 MG, VIAL MATE ADAPTER 1 EACH in D5W 250 ML IV ONE (14:20)
[2023-09-01 14:24] LABS: ALBUMIN 3.3 G/DL (3.2-5.2); BILIRUBIN,DIRECT 0.6 MG/DL (<0.4); BILIRUBIN,TOTAL 1.1 MG/DL (0.3-1.2); CALCIUM LEVEL 8.5 MG/DL (8.3-10.6); CK-MB VALUE MASS 1.9 NG/ML (<3.6); CREATININE FOR GFR 1.07 MG/DL (0.55-1.30); GLOMERULAR FILTRATION RATE 55.1 (>45); POTASSIUM SERUM 4.9 MMOL/L (3.5-5.1); TOTAL PROTEIN 6.8 G/DL (5.7-8.2)
[2023-09-01 14:28] LABS: MB/CK RELATIVE INDEX 2.34 (< OR =4)
[2023-09-01 15:07] LABS: ABG pH (ARTERIAL) 7.323 UNITS (7.350-7.450)
[2023-09-01 15:08] LABS: ABG HCO3 27.8 MMOL/L (22.0-26.0); ABG O2 SATURATION 80.3 % (95.0-99.0); ABG PARTIAL PRESSURE CO2 54.8 mmHg (35.0-45.0); ABG TOTAL CO2 29.5 MMOL/L (23.0-31.0)
[2023-09-01 15:14] LABS: ABG PARTIAL PRESSURE O2 49.8 mmHg (75.0-100.0)
[2023-09-01 15:51] LABS: CK-MB VALUE MASS 1.8 NG/ML (<3.6); MB/CK RELATIVE INDEX 2.57 (< OR =4)
[2023-09-01] MEDS ORDERED: MED REC IN PROGRESS XX SCH (16:40)
[2023-09-01] MEDS ORDERED: MAALOX 30 ML SUSP *UDC PO PRN (17:30)
[2023-09-01] MEDS ORDERED: MOM 30ML SUSPENSION UDC PO PRN (17:30)
[2023-09-01 18:23] LABS: ABG BASE EXCESS 0.4 (-2.0-2.0); ABG HCO3 26.2 MMOL/L (22.0-26.0); ABG O2 SATURATION 93.8 % (95.0-99.0); ABG PARTIAL PRESSURE CO2 47.2 mmHg (35.0-45.0); ABG PARTIAL PRESSURE O2 73.1 mmHg (75.0-100.0); ABG STANDARD HCO3 24.8 MMOL/L. (22.0-26.0); ABG TOTAL CO2 27.6 MMOL/L (23.0-31.0); ABG pH (ARTERIAL) 7.362 UNITS (7.350-7.450)
[2023-09-01] MEDS ORDERED: DIGOXIN INJ 0.5 MG/2 ML AMP IV STA (18:56)
[2023-09-01] MEDS: FORMOTEROL FUMARATE 20 MCG/2 ML INHALATION SOLUTION (PERFOROMIST) INH SCH (18:58)
[2023-09-01] MEDS: LEVALBUTEROL 1.25MG 0.5ML CONCENTRATE NEB INH SCH (18:58)
[2023-09-01] MEDS ORDERED: GLUCOSE 4GM CHEW TABLET PO PRN (19:05)
[2023-09-01] MEDS ORDERED: DEXTROSE 50% 50ML SYRINGE IV PRN (19:05)
[2023-09-01] MEDS ORDERED: GLUCAGON INJ 1MG VIAL SC PRN (19:05)
[2023-09-01] MEDS ORDERED: MED REC CURRENTLY UNOBTAINABLE XX SCH (19:40)
[2023-09-01] MEDS ORDERED: ROZE8TAB16 PO (19:56)
[2023-09-01] MEDS ORDERED: QUET400T42 PO (19:56)
[2023-09-01] MEDS ORDERED: INCR1INH INH (20:00)
[2023-09-01] MEDS ORDERED: FUROSEMIDE 40MG/4ML VIAL IV SCH (20:00)
[2023-09-01] MEDS ORDERED: GABA-1171 PO (20:00)
[2023-09-01] MEDS ORDERED: ALBU8.5H INH (20:00)
[2023-09-01] MEDS ORDERED: ALLO100T PO (20:00)
[2023-09-01] MEDS ORDERED: FERR325T19 PO (20:05)
[2023-09-01] MEDS ORDERED: METO50TA7 PO (20:05)
[2023-09-01] MEDS ORDERED: DIGO0.123 PO (20:06)
[2023-09-01] MEDS ORDERED: HOME MED LIST COMPLETE! XX SCH (20:10)
[2023-09-01 20:50] VITALS: BP 138/79; TEMP 96.9; O2SAT 97
[2023-09-01 21:00] VITALS: O2SAT 95
[2023-09-01] MEDS: INSULIN LISPRO (NovoLOG) PER UNIT SC SCH (21:00)
[2023-09-01] MEDS: guaiFENesin ER TABLET 600 MG TAB PO SCH (21:01)
[2023-09-01] MEDS: ACETAMINOPHEN TAB 650MG DOSE (2X325MG) PO PRN (21:02)
[2023-09-01] MEDS: APIXABAN 5 MG TAB (ELIQUIS) PO SCH (21:02)
[2023-09-01] MEDS: METOPROLOL TART 50 MG TAB PO SCH (21:04)
[2023-09-01] MEDS: methylPREDNISolone 40MG 1ML VIAL IV SCH (21:26)
[2023-09-01 22:00] VITALS: O2SAT 92
[2023-09-01 23:00] VITALS: O2SAT 91
[2023-09-01] MEDS: RAMELTEON 8 MG TAB (ROZEREM) PO SCH (23:53)
[2023-09-02] VITALS (27 sets, daily range): BP systolic 113–141; BP diastolic 72–92; TEMP 96.8–97.7; O2SAT 86–100
[2023-09-02] MEDS ORDERED: VANCOMYCIN HCL 1,000 MG, VIAL MATE ADAPTER 1 EACH in D5W 250 ML IV ONE ×4 (01:00)
[2023-09-02] MEDS: LEVALBUTEROL 1.25MG 0.5ML CONCENTRATE NEB INH SCH ×4 (01:26→19:17)
[2023-09-02 03:11] LABS: BASO % 0.1 % (0.0-1.0); HEMATOCRIT 33.5 % (36.0-47.0); HEMOGLOBIN 9.8 g/dl (12.0-15.5); LYMPH # 0.4 10^3/uL (1.5-5.0); MEAN CORPUSCULAR HEMOGLOBIN 26.3 pg (27.0-33.0); MEAN CORPUSCULAR HGB CONC 29.3 g/dl (32.0-36.5); MEAN CORPUSCULAR VOLUME 89.8 fl (80.0-96.0); MONO # 0.2 10^3/uL (0.0-0.8); MONO % 2.2 % (2.0-8.0); NEUTROPHILS # 9.9 10^3/uL (1.5-8.5); NEUTROPHILS % 93.1 % (36.0-66.0); PLATELET COUNT, AUTOMATED 159 10^3/uL (150-450); RED BLOOD COUNT 3.73 10^6/uL (4.00-5.40); WHITE BLOOD COUNT 10.6 10^3/uL (4.0-10.0)
[2023-09-02 03:41] LABS: CREATININE FOR GFR 1.06 MG/DL (0.55-1.30); GLOMERULAR FILTRATION RATE 55.7 (>45); MAGNESIUM LEVEL 1.8 MG/DL (1.8-2.4); POTASSIUM SERUM 4.3 MMOL/L (3.5-5.1)
[2023-09-02] MEDS: VANCOMYCIN HCL 1,000 MG, VIAL MATE ADAPTER 1 EACH in D5W 250 ML IV SCH ×2 (05:18→14:29)
[2023-09-02] MEDS: methylPREDNISolone 40MG 1ML VIAL IV SCH ×3 (05:18→21:07)
[2023-09-02] MEDS: FUROSEMIDE 40MG/4ML VIAL IV SCH ×3 (05:18→21:08)
[2023-09-02] MEDS: FORMOTEROL FUMARATE 20 MCG/2 ML INHALATION SOLUTION (PERFOROMIST) INH SCH ×2 (07:24→19:20)
[2023-09-02] MEDS: INSULIN LISPRO (NovoLOG) PER UNIT SC SCH ×4 (08:58→21:00)
[2023-09-02] MEDS: ACETAMINOPHEN TAB 650MG DOSE (2X325MG) PO PRN ×2 (08:59→21:08)
[2023-09-02] MEDS: FAMOTIDINE 20 MG TAB PO SCH (08:59)
[2023-09-02] MEDS: SERTRALINE HCL 25 MG TABLET PO SCH (09:00)
[2023-09-02] MEDS: ATORVASTATIN 20 MG TAB PO SCH (09:00)
[2023-09-02] MEDS: guaiFENesin ER TABLET 600 MG TAB PO SCH ×2 (09:00→21:08)
[2023-09-02] MEDS: ASPIRIN 81MG ENTERIC TABLET PO SCH (09:00)
[2023-09-02] MEDS: APIXABAN 5 MG TAB (ELIQUIS) PO SCH ×2 (09:00→21:08)
[2023-09-02] MEDS: DIGOXIN 0.125 MG TAB PO SCH (09:02)
[2023-09-02] MEDS: METOPROLOL TART 50 MG TAB PO SCH ×2 (09:04→21:12)
[2023-09-02] MEDS: allopurinoL 100 MG TAB PO SCH (09:04)
[2023-09-02] MEDS ORDERED: DIGOXIN INJ 0.5 MG/2 ML AMP IV ONE (10:35)
[2023-09-02 11:44] LABS: C REACTIVE PROTEIN QUANTITATIV 8.4 MG/DL (<1.0)
[2023-09-02 11:45] LABS: DIGOXIN LEVEL 0.7 NG/ML (0.8-2.0)
[2023-09-02 11:46] LABS: CALCIUM LEVEL 8.3 MG/DL (8.3-10.6); CREATININE FOR GFR 1.04 MG/DL (0.55-1.30); POTASSIUM SERUM 4.3 MMOL/L (3.5-5.1)
[2023-09-02 11:57] LABS: PROCALCITONIN 0.17 ng/ml
[2023-09-02] MEDS: GABAPENTIN 100 MG CAP PO PRN (12:29)
[2023-09-02] MEDS ORDERED: NALOXONE INJ 0.4MG/1ML VIAL IV PRN (14:40)
[2023-09-02] MEDS: NICOTINE 21MG/24HR 1 EA TRANSDERMAL TD PRN (14:46)
[2023-09-02] MEDS: ANEXSIA, NORCO 7.5MG/325MG TABLET(HYDROCODONE/APAP) PO PRN ×2 (14:47→22:50)
[2023-09-02] MEDS: cefTRIAXone SOD 2 GM in D5W MINI-BAG PLUS 50 ML IV SCH (18:17)
[2023-09-02] MEDS: RAMELTEON 8 MG TAB (ROZEREM) PO SCH (20:51)
[2023-09-03] VITALS (23 sets, daily range): BP systolic 125–148; BP diastolic 60–103; TEMP 96.6–97.8; O2SAT 90–99
[2023-09-03] MEDS ORDERED: VANCOMYCIN HCL 1,000 MG, VIAL MATE ADAPTER 1 EACH in D5W 250 ML IV SCH (01:00)
[2023-09-03] MEDS: LEVALBUTEROL 1.25MG 0.5ML CONCENTRATE NEB INH SCH ×4 (01:10→20:34)
[2023-09-03 05:19] LABS: HEMATOCRIT 35.4 % (36.0-47.0); HEMOGLOBIN 10.1 g/dl (12.0-15.5); LYMPH # 0.4 10^3/uL (1.5-5.0); LYMPH % 4.8 % (24.0-44.0); MEAN CORPUSCULAR HEMOGLOBIN 25.6 pg (27.0-33.0); MEAN CORPUSCULAR HGB CONC 28.5 g/dl (32.0-36.5); MEAN CORPUSCULAR VOLUME 89.6 fl (80.0-96.0); MONO # 0.3 10^3/uL (0.0-0.8); MONO % 3.6 % (2.0-8.0); NEUTROPHILS # 8.3 10^3/uL (1.5-8.5); NEUTROPHILS % 90.9 % (36.0-66.0); PLATELET COUNT, AUTOMATED 185 10^3/uL (150-450); RED BLOOD COUNT 3.95 10^6/uL (4.00-5.40); WHITE BLOOD COUNT 9.2 10^3/uL (4.0-10.0)
[2023-09-03] MEDS: methylPREDNISolone 40MG 1ML VIAL IV SCH ×3 (05:31→21:50)
[2023-09-03] MEDS: ACETAMINOPHEN TAB 650MG DOSE (2X325MG) PO PRN ×3 (05:32→21:50)
[2023-09-03] MEDS: FUROSEMIDE 40MG/4ML VIAL IV SCH ×3 (05:32→21:51)
[2023-09-03 05:35] LABS: CALCIUM LEVEL 8.1 MG/DL (8.3-10.6); CREATININE FOR GFR 1.19 MG/DL (0.55-1.30); GLOMERULAR FILTRATION RATE 48.8 (>45); MAGNESIUM LEVEL 1.8 MG/DL (1.8-2.4); POTASSIUM SERUM 3.9 MMOL/L (3.5-5.1)
[2023-09-03] MEDS: ANEXSIA, NORCO 7.5MG/325MG TABLET(HYDROCODONE/APAP) PO PRN (06:50)
[2023-09-03] MEDS: FORMOTEROL FUMARATE 20 MCG/2 ML INHALATION SOLUTION (PERFOROMIST) INH SCH ×2 (08:24→20:34)
[2023-09-03] MEDS: ATORVASTATIN 20 MG TAB PO SCH (08:43)
[2023-09-03] MEDS: FAMOTIDINE 20 MG TAB PO SCH (08:43)
[2023-09-03] MEDS: guaiFENesin ER TABLET 600 MG TAB PO SCH ×2 (08:43→21:50)
[2023-09-03] MEDS: SERTRALINE HCL 25 MG TABLET PO SCH (08:43)
[2023-09-03] MEDS: allopurinoL 100 MG TAB PO SCH (08:43)
[2023-09-03] MEDS: INSULIN LISPRO (NovoLOG) PER UNIT SC SCH ×4 (08:43→21:00)
[2023-09-03] MEDS: ASPIRIN 81MG ENTERIC TABLET PO SCH (08:43)
[2023-09-03] MEDS: METOPROLOL TART 50 MG TAB PO SCH ×2 (08:44→21:50)
[2023-09-03] MEDS: APIXABAN 5 MG TAB (ELIQUIS) PO SCH ×2 (08:44→21:50)
[2023-09-03] MEDS: DIGOXIN 0.125 MG TAB PO SCH (08:44)
[2023-09-03 10:03] LABS: HEMOGLOBIN A1c 5.9 % (4.0-6.0)
[2023-09-03] MEDS: GABAPENTIN 100 MG CAP PO PRN (11:12)
[2023-09-03] MEDS ORDERED: traMADol 50 MG TAB PO ONE (12:45)
[2023-09-03 15:09] LABS: MYCOPLASMA PNEUMONIAE IgG 136 U/mL (0-99); MYCOPLASMA PNEUMONIAE IgM <770 U/mL (0-769)
[2023-09-03] MEDS: NICOTINE 21MG/24HR 1 EA TRANSDERMAL TD PRN (15:19)
[2023-09-03] MEDS: cefTRIAXone SOD 2 GM in D5W MINI-BAG PLUS 50 ML IV SCH (17:50)
[2023-09-03] MEDS: RAMELTEON 8 MG TAB (ROZEREM) PO SCH (21:50)
[2023-09-04] MEDS ORDERED: MORPHINE 2 MG/ML 1ML VIAL IV ONE
[2023-09-04] MEDS: LEVALBUTEROL 1.25MG 0.5ML CONCENTRATE NEB INH SCH ×4 (02:46→21:37)
[2023-09-04] MEDS: FUROSEMIDE 40MG/4ML VIAL IV SCH (06:02)
[2023-09-04] MEDS: methylPREDNISolone 40MG 1ML VIAL IV SCH ×3 (06:02→21:07)
[2023-09-04 06:13] VITALS: BP 132/80; TEMP 97.6; O2SAT 95
[2023-09-04] MEDS: FORMOTEROL FUMARATE 20 MCG/2 ML INHALATION SOLUTION (PERFOROMIST) INH SCH ×2 (07:18→21:36)
[2023-09-04 07:21] LABS: HEMATOCRIT 37.3 % (36.0-47.0); HEMOGLOBIN 10.7 g/dl (12.0-15.5); LYMPH # 0.5 10^3/uL (1.5-5.0); LYMPH % 6.7 % (24.0-44.0); MEAN CORPUSCULAR HEMOGLOBIN 25.8 pg (27.0-33.0); MEAN CORPUSCULAR HGB CONC 28.7 g/dl (32.0-36.5); MEAN CORPUSCULAR VOLUME 89.9 fl (80.0-96.0); MONO # 0.4 10^3/uL (0.0-0.8); MONO % 5.2 % (2.0-8.0); PLATELET COUNT, AUTOMATED 207 10^3/uL (150-450); RED BLOOD COUNT 4.15 10^6/uL (4.00-5.40)
[2023-09-04 07:41] LABS: CALCIUM LEVEL 8.4 MG/DL (8.3-10.6); CREATININE FOR GFR 1.41 MG/DL (0.55-1.30); GLOMERULAR FILTRATION RATE 40.1 (>45); MAGNESIUM LEVEL 1.6 MG/DL (1.8-2.4); POTASSIUM SERUM 3.3 MMOL/L (3.5-5.1)
[2023-09-04] MEDS: allopurinoL 100 MG TAB PO SCH (08:30)
[2023-09-04] MEDS: GABAPENTIN 100 MG CAP PO PRN (08:30)
[2023-09-04] MEDS: APIXABAN 5 MG TAB (ELIQUIS) PO SCH ×2 (08:30→20:20)
[2023-09-04] MEDS: guaiFENesin ER TABLET 600 MG TAB PO SCH ×2 (08:30→20:19)
[2023-09-04] MEDS: ASPIRIN 81MG ENTERIC TABLET PO SCH (08:30)
[2023-09-04] MEDS: ATORVASTATIN 20 MG TAB PO SCH (08:31)
[2023-09-04] MEDS: SERTRALINE HCL 25 MG TABLET PO SCH (08:31)
[2023-09-04] MEDS: INSULIN LISPRO (NovoLOG) PER UNIT SC SCH ×4 (08:31→20:20)
[2023-09-04] MEDS: DIGOXIN 0.125 MG TAB PO SCH (08:31)
[2023-09-04] MEDS: FAMOTIDINE 20 MG TAB PO SCH (08:31)
[2023-09-04] MEDS: METOPROLOL TART 50 MG TAB PO SCH ×2 (08:32→20:20)
[2023-09-04] MEDS: ACETAMINOPHEN TAB 650MG DOSE (2X325MG) PO PRN (08:32)
[2023-09-04] MEDS ORDERED: POTASSIUM CHLORIDE 10MEQ SR TABLET PO ONE (10:00)
[2023-09-04] MEDS: ANEXSIA, NORCO 7.5MG/325MG TABLET(HYDROCODONE/APAP) PO PRN ×4 (10:19→22:25)
[2023-09-04] MEDS: NICOTINE 21MG/24HR 1 EA TRANSDERMAL TD PRN (11:52)
[2023-09-04 14:04] VITALS: BP 118/84; TEMP 97.5; O2SAT 97
[2023-09-04 14:08] LABS: BODY FLUID CULTURE Not indicated. (.); LEGIONELLA ANTIGEN URINE Negative (Negative); ORGANISM ID Not indicated. (.); SPECIMEN SOURCE Urine (.); URINE STREP PNEUMONIAE ANTIGEN Negative (Negative)
[2023-09-04] MEDS: cefTRIAXone SOD 2 GM in D5W MINI-BAG PLUS 50 ML IV SCH (17:39)
[2023-09-04] MEDS: RAMELTEON 8 MG TAB (ROZEREM) PO SCH (20:20)
[2023-09-04 22:00] VITALS: BP 149/85; TEMP 98.2; O2SAT 98
[2023-09-04 22:41] VITALS: O2SAT 92
[2023-09-05] MEDS: LEVALBUTEROL 1.25MG 0.5ML CONCENTRATE NEB INH SCH ×4 (02:00→20:56)
[2023-09-05] MEDS: ANEXSIA, NORCO 7.5MG/325MG TABLET(HYDROCODONE/APAP) PO PRN ×4 (02:34→20:13)
[2023-09-05 05:00] VITALS: BP 140/100; TEMP 97.5; O2SAT 95
[2023-09-05] MEDS: methylPREDNISolone 40MG 1ML VIAL IV SCH ×3 (05:27→21:39)
[2023-09-05 05:37] VITALS: BP 130/86
[2023-09-05 07:18] LABS: HEMATOCRIT 36.8 % (36.0-47.0); HEMOGLOBIN 10.9 g/dl (12.0-15.5); LYMPH # 0.6 10^3/uL (1.5-5.0); LYMPH % 7.7 % (24.0-44.0); MEAN CORPUSCULAR HEMOGLOBIN 26.1 pg (27.0-33.0); MEAN CORPUSCULAR HGB CONC 29.6 g/dl (32.0-36.5); MONO # 0.4 10^3/uL (0.0-0.8); MONO % 4.8 % (2.0-8.0); NEUTROPHILS # 6.4 10^3/uL (1.5-8.5); NEUTROPHILS % 86.7 % (36.0-66.0); PLATELET COUNT, AUTOMATED 210 10^3/uL (150-450); RED BLOOD COUNT 4.18 10^6/uL (4.00-5.40); WHITE BLOOD COUNT 7.4 10^3/uL (4.0-10.0)
[2023-09-05 07:48] LABS: CALCIUM LEVEL 8.2 MG/DL (8.3-10.6); CREATININE FOR GFR 1.41 MG/DL (0.55-1.30); GLOMERULAR FILTRATION RATE 40.1 (>45); MAGNESIUM LEVEL 1.8 MG/DL (1.8-2.4); POTASSIUM SERUM 4.5 MMOL/L (3.5-5.1)
[2023-09-05] MEDS: FORMOTEROL FUMARATE 20 MCG/2 ML INHALATION SOLUTION (PERFOROMIST) INH SCH ×2 (07:59→20:56)
[2023-09-05] MEDS: FAMOTIDINE 20 MG TAB PO SCH (09:20)
[2023-09-05] MEDS: INSULIN LISPRO (NovoLOG) PER UNIT SC SCH ×4 (09:20→20:00)
[2023-09-05] MEDS: ASPIRIN 81MG ENTERIC TABLET PO SCH (09:21)
[2023-09-05] MEDS: ATORVASTATIN 20 MG TAB PO SCH (09:21)
[2023-09-05] MEDS: allopurinoL 100 MG TAB PO SCH (09:21)
[2023-09-05] MEDS: guaiFENesin ER TABLET 600 MG TAB PO SCH ×2 (09:21→20:12)
[2023-09-05] MEDS: DIGOXIN 0.125 MG TAB PO SCH (09:21)
[2023-09-05] MEDS: APIXABAN 5 MG TAB (ELIQUIS) PO SCH ×2 (09:22→20:12)
[2023-09-05] MEDS: METOPROLOL TART 50 MG TAB PO SCH ×2 (09:23→20:13)
[2023-09-05] MEDS: SERTRALINE HCL 25 MG TABLET PO SCH (10:13)
[2023-09-05] MEDS: CEFDINIR 300 MG CAP (OMNICEF) PO SCH ×2 (12:40→20:12)
[2023-09-05 14:09] VITALS: BP 117/82; TEMP 98; O2SAT 98
[2023-09-05 17:55] VITALS: BP 119/65; TEMP 97.8; O2SAT 95
[2023-09-05 20:00] VITALS: BP 134/92; TEMP 96.8; O2SAT 95
[2023-09-05] MEDS: RAMELTEON 8 MG TAB (ROZEREM) PO SCH (20:12)
[2023-09-05 20:44] VITALS: O2SAT 98
[2023-09-06] VITALS (7 sets, daily range): BP systolic 122–148; BP diastolic 79–96; TEMP 96.8–98; O2SAT 94–100
[2023-09-06] MEDS: LEVALBUTEROL 1.25MG 0.5ML CONCENTRATE NEB INH SCH ×4 (02:00→20:01)
[2023-09-06] MEDS: methylPREDNISolone 40MG 1ML VIAL IV SCH (05:03)
[2023-09-06 07:29] LABS: BASO % 0.1 % (0.0-1.0); HEMATOCRIT 38.1 % (36.0-47.0); LYMPH # 0.7 10^3/uL (1.5-5.0); LYMPH % 10.8 % (24.0-44.0); MEAN CORPUSCULAR HEMOGLOBIN 25.5 pg (27.0-33.0); MEAN CORPUSCULAR HGB CONC 28.9 g/dl (32.0-36.5); MEAN CORPUSCULAR VOLUME 88.4 fl (80.0-96.0); MONO # 0.3 10^3/uL (0.0-0.8); NEUTROPHILS # 5.6 10^3/uL (1.5-8.5); PLATELET COUNT, AUTOMATED 209 10^3/uL (150-450); RED BLOOD COUNT 4.31 10^6/uL (4.00-5.40); WHITE BLOOD COUNT 6.8 10^3/uL (4.0-10.0)
[2023-09-06 08:21] LABS: CALCIUM LEVEL 8.7 MG/DL (8.3-10.6); CREATININE FOR GFR 1.37 MG/DL (0.55-1.30); GLOMERULAR FILTRATION RATE 41.5 (>45); POTASSIUM SERUM 4.5 MMOL/L (3.5-5.1)
[2023-09-06] MEDS: FORMOTEROL FUMARATE 20 MCG/2 ML INHALATION SOLUTION (PERFOROMIST) INH SCH ×2 (09:00→20:01)
[2023-09-06] MEDS: FAMOTIDINE 20 MG TAB PO SCH (09:12)
[2023-09-06] MEDS: SERTRALINE HCL 25 MG TABLET PO SCH (09:12)
[2023-09-06] MEDS: ATORVASTATIN 20 MG TAB PO SCH (09:12)
[2023-09-06] MEDS: CEFDINIR 300 MG CAP (OMNICEF) PO SCH ×2 (09:12→21:13)
[2023-09-06] MEDS: APIXABAN 5 MG TAB (ELIQUIS) PO SCH ×2 (09:12→21:13)
[2023-09-06] MEDS: guaiFENesin ER TABLET 600 MG TAB PO SCH ×2 (09:12→21:12)
[2023-09-06] MEDS: ASPIRIN 81MG ENTERIC TABLET PO SCH (09:12)
[2023-09-06] MEDS: allopurinoL 100 MG TAB PO SCH (09:12)
[2023-09-06] MEDS: DIGOXIN 0.125 MG TAB PO SCH (09:12)
[2023-09-06] MEDS: INSULIN LISPRO (NovoLOG) PER UNIT SC SCH ×4 (09:13→21:00)
[2023-09-06] MEDS: METOPROLOL TART 50 MG TAB PO SCH ×2 (09:18→21:12)
[2023-09-06] MEDS: ANEXSIA, NORCO 7.5MG/325MG TABLET(HYDROCODONE/APAP) PO PRN (11:29)
[2023-09-06] MEDS: RAMELTEON 8 MG TAB (ROZEREM) PO SCH (21:12)
[2023-09-07] VITALS: BP 135/92; TEMP 98.7; O2SAT 98
[2023-09-07] MEDS: LEVALBUTEROL 1.25MG 0.5ML CONCENTRATE NEB INH SCH ×4 (01:06→20:06)
[2023-09-07] MEDS: IPRATROPIUM 0.5MG/ALBUTEROL 2.5MG INH SOL UD 3ML (DUONEB) NEB PRN (02:43)
[2023-09-07 04:00] VITALS: BP 149/93; TEMP 98.3; O2SAT 99
[2023-09-07 08:02] LABS: BASO % 0.1 % (0.0-1.0); EOS % 0.1 % (0.0-3.0); HEMATOCRIT 38.6 % (36.0-47.0); HEMOGLOBIN 11.2 g/dl (12.0-15.5); LYMPH # 1.4 10^3/uL (1.5-5.0); LYMPH % 12.4 % (24.0-44.0); MEAN CORPUSCULAR HEMOGLOBIN 25.5 pg (27.0-33.0); MEAN CORPUSCULAR VOLUME 87.9 fl (80.0-96.0); MONO # 1.1 10^3/uL (0.0-0.8); MONO % 9.8 % (2.0-8.0); NEUTROPHILS # 8.4 10^3/uL (1.5-8.5); PLATELET COUNT, AUTOMATED 205 10^3/uL (150-450); RED BLOOD COUNT 4.39 10^6/uL (4.00-5.40); WHITE BLOOD COUNT 10.9 10^3/uL (4.0-10.0)
[2023-09-07 08:17] LABS: CALCIUM LEVEL 8.7 MG/DL (8.3-10.6); CREATININE FOR GFR 1.34 MG/DL (0.55-1.30); GLOMERULAR FILTRATION RATE 42.5 (>45); MAGNESIUM LEVEL 2.1 MG/DL (1.8-2.4); POTASSIUM SERUM 4.2 MMOL/L (3.5-5.1)
[2023-09-07] MEDS ORDERED: predniSONE 20 MG TAB PO SCH (09:00)
[2023-09-07] MEDS: INSULIN LISPRO (NovoLOG) PER UNIT SC SCH ×4 (09:17→21:00)
[2023-09-07] MEDS: METOPROLOL TART 50 MG TAB PO SCH ×2 (09:18→21:35)
[2023-09-07] MEDS: FAMOTIDINE 20 MG TAB PO SCH (09:18)
[2023-09-07] MEDS: ATORVASTATIN 20 MG TAB PO SCH (09:18)
[2023-09-07] MEDS: DIGOXIN 0.125 MG TAB PO SCH (09:19)
[2023-09-07] MEDS: SERTRALINE HCL 25 MG TABLET PO SCH (09:19)
[2023-09-07] MEDS: CEFDINIR 300 MG CAP (OMNICEF) PO SCH ×2 (09:19→21:35)
[2023-09-07] MEDS: guaiFENesin ER TABLET 600 MG TAB PO SCH ×2 (09:19→21:35)
[2023-09-07] MEDS: APIXABAN 5 MG TAB (ELIQUIS) PO SCH ×2 (09:20→21:34)
[2023-09-07] MEDS: ASPIRIN 81MG ENTERIC TABLET PO SCH (09:20)
[2023-09-07] MEDS: allopurinoL 100 MG TAB PO SCH (09:20)
[2023-09-07] MEDS: FORMOTEROL FUMARATE 20 MCG/2 ML INHALATION SOLUTION (PERFOROMIST) INH SCH ×2 (09:56→20:06)
[2023-09-07 10:00] VITALS: BP 184/100; TEMP 97; O2SAT 94
[2023-09-07] MEDS ORDERED: cloNIDine 0.1MG TABLET PO ONE (10:25)
[2023-09-07] MEDS ORDERED: methylPREDNISolone 125MG 2ML VIAL IV ONE (11:00)
[2023-09-07] MEDS ORDERED: cloNIDine 0.2 MG TAB PO ONE (11:30)
[2023-09-07 11:52] LABS: C REACTIVE PROTEIN QUANTITATIV 0.8 MG/DL (<1.0)
[2023-09-07 12:05] LABS: PROCALCITONIN 0.07 ng/ml
[2023-09-07 14:00] VITALS: BP 147/84; TEMP 97.5; O2SAT 97
[2023-09-07 16:05] VITALS: BP 137/101; O2SAT 96
[2023-09-07] MEDS: methylPREDNISolone 40MG 1ML VIAL IV SCH (17:46)
[2023-09-07] MEDS: ANEXSIA, NORCO 7.5MG/325MG TABLET(HYDROCODONE/APAP) PO PRN (17:47)
[2023-09-07] MEDS: RAMELTEON 8 MG TAB (ROZEREM) PO SCH (21:35)
[2023-09-07 21:43] VITALS: BP 138/93; TEMP 97.7; O2SAT 96
[2023-09-08] VITALS (7 sets, daily range): BP systolic 122–145; BP diastolic 72–87; TEMP 98–98.1; O2SAT 89–99
[2023-09-08] MEDS: LEVALBUTEROL 1.25MG 0.5ML CONCENTRATE NEB INH SCH ×4 (01:00→20:20)
[2023-09-08] MEDS: methylPREDNISolone 40MG 1ML VIAL IV SCH ×2 (05:32→17:52)
[2023-09-08] MEDS: FORMOTEROL FUMARATE 20 MCG/2 ML INHALATION SOLUTION (PERFOROMIST) INH SCH ×2 (07:09→20:20)
[2023-09-08 08:09] LABS: HEMATOCRIT 36.5 % (36.0-47.0); HEMOGLOBIN 10.7 g/dl (12.0-15.5); LYMPH # 0.5 10^3/uL (1.5-5.0); MEAN CORPUSCULAR HEMOGLOBIN 25.9 pg (27.0-33.0); MEAN CORPUSCULAR HGB CONC 29.3 g/dl (32.0-36.5); MEAN CORPUSCULAR VOLUME 88.4 fl (80.0-96.0); MONO # 0.3 10^3/uL (0.0-0.8); NEUTROPHILS # 5.6 10^3/uL (1.5-8.5); NEUTROPHILS % 87.5 % (36.0-66.0); PLATELET COUNT, AUTOMATED 169 10^3/uL (150-450); RED BLOOD COUNT 4.13 10^6/uL (4.00-5.40); WHITE BLOOD COUNT 6.4 10^3/uL (4.0-10.0)
[2023-09-08 08:32] LABS: CALCIUM LEVEL 8.5 MG/DL (8.3-10.6); CREATININE FOR GFR 1.21 MG/DL (0.55-1.30); GLOMERULAR FILTRATION RATE 47.8 (>45)
[2023-09-08] MEDS: INSULIN LISPRO (NovoLOG) PER UNIT SC SCH ×4 (09:10→20:02)
[2023-09-08] MEDS: ATORVASTATIN 20 MG TAB PO SCH (09:10)
[2023-09-08] MEDS: SERTRALINE HCL 25 MG TABLET PO SCH (09:10)
[2023-09-08] MEDS: APIXABAN 5 MG TAB (ELIQUIS) PO SCH ×2 (09:11→20:03)
[2023-09-08] MEDS: FAMOTIDINE 20 MG TAB PO SCH (09:11)
[2023-09-08] MEDS: ASPIRIN 81MG ENTERIC TABLET PO SCH (09:11)
[2023-09-08] MEDS: DIGOXIN 0.125 MG TAB PO SCH (09:11)
[2023-09-08] MEDS: allopurinoL 100 MG TAB PO SCH (09:11)
[2023-09-08] MEDS: guaiFENesin ER TABLET 600 MG TAB PO SCH ×2 (09:11→20:02)
[2023-09-08] MEDS: METOPROLOL TART 50 MG TAB PO SCH ×2 (09:12→20:03)
[2023-09-08] MEDS: GABAPENTIN 100 MG CAP PO PRN (09:12)
[2023-09-08] MEDS: ACETAMINOPHEN TAB 650MG DOSE (2X325MG) PO PRN ×2 (09:12→20:02)
[2023-09-08] MEDS: ANEXSIA, NORCO 7.5MG/325MG TABLET(HYDROCODONE/APAP) PO PRN (18:44)
[2023-09-08] MEDS: RAMELTEON 8 MG TAB (ROZEREM) PO SCH (20:03)
[2023-09-09] MEDS: LEVALBUTEROL 1.25MG 0.5ML CONCENTRATE NEB INH SCH ×4 (01:24→19:35)
[2023-09-09 05:20] VITALS: BP 148/91; TEMP 97.6; O2SAT 96
[2023-09-09] MEDS: methylPREDNISolone 40MG 1ML VIAL IV SCH (05:24)
[2023-09-09] MEDS: ANEXSIA, NORCO 7.5MG/325MG TABLET(HYDROCODONE/APAP) PO PRN ×2 (06:28→19:01)
[2023-09-09] MEDS: FORMOTEROL FUMARATE 20 MCG/2 ML INHALATION SOLUTION (PERFOROMIST) INH SCH ×2 (08:02→19:35)
[2023-09-09] MEDS: APIXABAN 5 MG TAB (ELIQUIS) PO SCH ×2 (08:24→20:42)
[2023-09-09] MEDS: INSULIN LISPRO (NovoLOG) PER UNIT SC SCH ×4 (08:24→20:42)
[2023-09-09] MEDS: ASPIRIN 81MG ENTERIC TABLET PO SCH (08:24)
[2023-09-09] MEDS: FAMOTIDINE 20 MG TAB PO SCH (08:24)
[2023-09-09] MEDS: guaiFENesin ER TABLET 600 MG TAB PO SCH ×2 (08:24→20:42)
[2023-09-09] MEDS: allopurinoL 100 MG TAB PO SCH (08:24)
[2023-09-09] MEDS: SERTRALINE HCL 25 MG TABLET PO SCH (08:24)
[2023-09-09] MEDS: ATORVASTATIN 20 MG TAB PO SCH (08:24)
[2023-09-09] MEDS: DIGOXIN 0.125 MG TAB PO SCH (08:25)
[2023-09-09] MEDS: METOPROLOL TART 50 MG TAB PO SCH ×2 (08:27→20:42)
[2023-09-09] MEDS ORDERED: guaiFENesin 200 MG TAB PO SCH (13:55)
[2023-09-09 14:13] VITALS: BP 154/92; TEMP 97.8; O2SAT 95
[2023-09-09 20:25] VITALS: BP 136/75; TEMP 98.2; O2SAT 95
[2023-09-09] MEDS: RAMELTEON 8 MG TAB (ROZEREM) PO SCH (20:42)
[2023-09-09 21:50] VITALS: O2SAT 94
[2023-09-10] MEDS: LEVALBUTEROL 1.25MG 0.5ML CONCENTRATE NEB INH SCH ×4 (01:40→19:55)
[2023-09-10] MEDS: ANEXSIA, NORCO 7.5MG/325MG TABLET(HYDROCODONE/APAP) PO PRN ×3 (02:00→21:28)
[2023-09-10 05:21] VITALS: BP 147/83; TEMP 97.5; O2SAT 93
[2023-09-10] MEDS: FORMOTEROL FUMARATE 20 MCG/2 ML INHALATION SOLUTION (PERFOROMIST) INH SCH ×2 (07:52→19:55)
[2023-09-10] MEDS: INSULIN LISPRO (NovoLOG) PER UNIT SC SCH ×4 (08:22→20:26)
[2023-09-10] MEDS: predniSONE 50 MG TAB PO SCH (08:22)
[2023-09-10] MEDS: guaiFENesin ER TABLET 600 MG TAB PO SCH ×2 (08:23→21:27)
[2023-09-10] MEDS: FAMOTIDINE 20 MG TAB PO SCH (08:23)
[2023-09-10] MEDS: ATORVASTATIN 20 MG TAB PO SCH (08:23)
[2023-09-10] MEDS: SERTRALINE HCL 25 MG TABLET PO SCH (08:23)
[2023-09-10] MEDS: DIGOXIN 0.125 MG TAB PO SCH (08:23)
[2023-09-10] MEDS: allopurinoL 100 MG TAB PO SCH (08:24)
[2023-09-10] MEDS: METOPROLOL TART 50 MG TAB PO SCH ×2 (08:24→21:27)
[2023-09-10] MEDS: ASPIRIN 81MG ENTERIC TABLET PO SCH (08:24)
[2023-09-10] MEDS: APIXABAN 5 MG TAB (ELIQUIS) PO SCH ×2 (08:24→21:27)
[2023-09-10 14:13] VITALS: BP 129/74; TEMP 98; O2SAT 96
[2023-09-10] MEDS: RAMELTEON 8 MG TAB (ROZEREM) PO SCH (21:27)
[2023-09-10 23:35] VITALS: BP 128/85; TEMP 97.9; O2SAT 96
[2023-09-11] MEDS: LEVALBUTEROL 1.25MG 0.5ML CONCENTRATE NEB INH SCH ×4 (02:02→20:36)
[2023-09-11] MEDS: ANEXSIA, NORCO 7.5MG/325MG TABLET(HYDROCODONE/APAP) PO PRN ×4 (04:59→21:47)
[2023-09-11 05:08] VITALS: BP 141/93; TEMP 98.6; O2SAT 95
[2023-09-11] MEDS: FORMOTEROL FUMARATE 20 MCG/2 ML INHALATION SOLUTION (PERFOROMIST) INH SCH ×2 (07:43→20:36)
[2023-09-11] MEDS: ACETAMINOPHEN TAB 650MG DOSE (2X325MG) PO PRN (08:41)
[2023-09-11] MEDS: SERTRALINE HCL 25 MG TABLET PO SCH (08:42)
[2023-09-11] MEDS: guaiFENesin ER TABLET 600 MG TAB PO SCH ×2 (08:42→20:16)
[2023-09-11] MEDS: INSULIN LISPRO (NovoLOG) PER UNIT SC SCH ×4 (08:42→21:00)
[2023-09-11] MEDS: ATORVASTATIN 20 MG TAB PO SCH (08:42)
[2023-09-11] MEDS: FAMOTIDINE 20 MG TAB PO SCH (08:42)
[2023-09-11] MEDS: allopurinoL 100 MG TAB PO SCH (08:42)
[2023-09-11] MEDS: ASPIRIN 81MG ENTERIC TABLET PO SCH (08:42)
[2023-09-11] MEDS: METOPROLOL TART 50 MG TAB PO SCH ×2 (08:43→20:16)
[2023-09-11] MEDS: DIGOXIN 0.125 MG TAB PO SCH (08:43)
[2023-09-11] MEDS: predniSONE 50 MG TAB PO SCH (08:43)
[2023-09-11] MEDS: APIXABAN 5 MG TAB (ELIQUIS) PO SCH ×2 (08:43→20:16)
[2023-09-11] MEDS: RAMELTEON 8 MG TAB (ROZEREM) PO SCH (20:15)
[2023-09-12] VITALS (8 sets, daily range): BP systolic 87–118; BP diastolic 52–59
[2023-09-12] MEDS: LEVALBUTEROL 1.25MG 0.5ML CONCENTRATE NEB INH SCH ×4 (02:00→20:17)
[2023-09-12] MEDS: FORMOTEROL FUMARATE 20 MCG/2 ML INHALATION SOLUTION (PERFOROMIST) INH SCH ×2 (07:37→20:17)
[2023-09-12] MEDS: INSULIN LISPRO (NovoLOG) PER UNIT SC SCH ×4 (08:48→22:35)
[2023-09-12] MEDS: METOPROLOL TART 50 MG TAB PO SCH ×2 (09:00→21:00)
[2023-09-12] MEDS: ATORVASTATIN 20 MG TAB PO SCH (09:03)
[2023-09-12] MEDS: ASPIRIN 81MG ENTERIC TABLET PO SCH (09:03)
[2023-09-12] MEDS: SERTRALINE HCL 25 MG TABLET PO SCH (09:03)
[2023-09-12] MEDS: APIXABAN 5 MG TAB (ELIQUIS) PO SCH ×2 (09:04→22:35)
[2023-09-12] MEDS: FAMOTIDINE 20 MG TAB PO SCH (09:04)
[2023-09-12] MEDS: guaiFENesin ER TABLET 600 MG TAB PO SCH ×2 (09:04→22:35)
[2023-09-12] MEDS: predniSONE 50 MG TAB PO SCH (09:04)
[2023-09-12] MEDS: DIGOXIN 0.125 MG TAB PO SCH (09:04)
[2023-09-12] MEDS: allopurinoL 100 MG TAB PO SCH (09:04)
[2023-09-12] MEDS: ANEXSIA, NORCO 7.5MG/325MG TABLET(HYDROCODONE/APAP) PO PRN (12:51)
[2023-09-12] MEDS ORDERED: METOPROLOL TART 25 MG TABLET PO ONE (22:25)
[2023-09-12] MEDS: RAMELTEON 8 MG TAB (ROZEREM) PO SCH (22:35)
[2023-09-13 00:15] VITALS: O2SAT 99
[2023-09-13] MEDS: LEVALBUTEROL 1.25MG 0.5ML CONCENTRATE NEB INH SCH ×4 (02:50→19:53)
[2023-09-13 04:11] VITALS: O2SAT 99
[2023-09-13 05:15] VITALS: BP 107/68; TEMP 97.5; O2SAT 99
[2023-09-13] MEDS: FORMOTEROL FUMARATE 20 MCG/2 ML INHALATION SOLUTION (PERFOROMIST) INH SCH ×2 (07:36→19:53)
[2023-09-13] MEDS: ATORVASTATIN 20 MG TAB PO SCH (08:25)
[2023-09-13] MEDS: ASPIRIN 81MG ENTERIC TABLET PO SCH (08:25)
[2023-09-13] MEDS: ANEXSIA, NORCO 7.5MG/325MG TABLET(HYDROCODONE/APAP) PO PRN ×3 (08:25→20:27)
[2023-09-13] MEDS: predniSONE 50 MG TAB PO SCH (08:26)
[2023-09-13] MEDS: allopurinoL 100 MG TAB PO SCH (08:26)
[2023-09-13] MEDS: guaiFENesin ER TABLET 600 MG TAB PO SCH ×2 (08:26→20:26)
[2023-09-13] MEDS: METOPROLOL TART 50 MG TAB PO SCH ×2 (08:28→20:27)
[2023-09-13] MEDS: DIGOXIN 0.125 MG TAB PO SCH (08:29)
[2023-09-13] MEDS: FAMOTIDINE 20 MG TAB PO SCH (08:29)
[2023-09-13] MEDS: APIXABAN 5 MG TAB (ELIQUIS) PO SCH ×2 (08:29→20:26)
[2023-09-13] MEDS: INSULIN LISPRO (NovoLOG) PER UNIT SC SCH ×4 (08:29→20:27)
[2023-09-13] MEDS: SERTRALINE HCL 25 MG TABLET PO SCH (08:33)
[2023-09-13] MEDS: GABAPENTIN 100 MG CAP PO PRN (10:44)
[2023-09-13 20:18] VITALS: BP 104/64
[2023-09-13] MEDS: RAMELTEON 8 MG TAB (ROZEREM) PO SCH (20:26)
[2023-09-14] MEDS: LEVALBUTEROL 1.25MG 0.5ML CONCENTRATE NEB INH SCH ×4 (02:55→19:21)
[2023-09-14 06:48] VITALS: BP 96/52; TEMP 98.1
[2023-09-14] MEDS: FORMOTEROL FUMARATE 20 MCG/2 ML INHALATION SOLUTION (PERFOROMIST) INH SCH ×2 (07:47→19:22)
[2023-09-14 08:22] VITALS: BP 94/57
[2023-09-14] MEDS: INSULIN LISPRO (NovoLOG) PER UNIT SC SCH ×4 (08:27→20:53)
[2023-09-14] MEDS: SERTRALINE HCL 25 MG TABLET PO SCH (08:28)
[2023-09-14] MEDS: ANEXSIA, NORCO 7.5MG/325MG TABLET(HYDROCODONE/APAP) PO PRN ×4 (08:28→21:45)
[2023-09-14] MEDS: APIXABAN 5 MG TAB (ELIQUIS) PO SCH ×2 (08:28→20:53)
[2023-09-14] MEDS: FAMOTIDINE 20 MG TAB PO SCH (08:28)
[2023-09-14] MEDS: ATORVASTATIN 20 MG TAB PO SCH (08:28)
[2023-09-14] MEDS: guaiFENesin ER TABLET 600 MG TAB PO SCH ×2 (08:28→20:54)
[2023-09-14] MEDS: allopurinoL 100 MG TAB PO SCH (08:28)
[2023-09-14] MEDS: ASPIRIN 81MG ENTERIC TABLET PO SCH (08:28)
[2023-09-14] MEDS: predniSONE 50 MG TAB PO SCH (08:32)
[2023-09-14] MEDS: DIGOXIN 0.125 MG TAB PO SCH (08:34)
[2023-09-14] MEDS: METOPROLOL TART 50 MG TAB PO SCH ×2 (09:00→20:54)
[2023-09-14] MEDS: ACETAMINOPHEN TAB 650MG DOSE (2X325MG) PO PRN (11:18)
[2023-09-14] MEDS ORDERED: METOPROLOL TART 25 MG TABLET PO ONE (19:55)
[2023-09-14 20:23] VITALS: BP 95/51
[2023-09-14] MEDS: RAMELTEON 8 MG TAB (ROZEREM) PO SCH (20:53)
[2023-09-15] VITALS (13 sets, daily range): BP systolic 99–128; BP diastolic 50–68; TEMP 97.3–98.2; O2SAT 93–100
[2023-09-15] MEDS: ANEXSIA, NORCO 7.5MG/325MG TABLET(HYDROCODONE/APAP) PO PRN ×4 (01:47→21:21)
[2023-09-15] MEDS: LEVALBUTEROL 1.25MG 0.5ML CONCENTRATE NEB INH SCH ×4 (02:08→20:57)
[2023-09-15] MEDS: FORMOTEROL FUMARATE 20 MCG/2 ML INHALATION SOLUTION (PERFOROMIST) INH SCH ×2 (07:46→20:57)
[2023-09-15] MEDS: INSULIN LISPRO (NovoLOG) PER UNIT SC SCH ×4 (07:52→21:00)
[2023-09-15] MEDS: ATORVASTATIN 20 MG TAB PO SCH (07:53)
[2023-09-15] MEDS: allopurinoL 100 MG TAB PO SCH (07:53)
[2023-09-15] MEDS: APIXABAN 5 MG TAB (ELIQUIS) PO SCH (07:54)
[2023-09-15] MEDS: SERTRALINE HCL 25 MG TABLET PO SCH (07:54)
[2023-09-15] MEDS: DIGOXIN 0.125 MG TAB PO SCH (07:54)
[2023-09-15] MEDS: ASPIRIN 81MG ENTERIC TABLET PO SCH (07:54)
[2023-09-15] MEDS: guaiFENesin ER TABLET 600 MG TAB PO SCH ×2 (07:54→21:20)
[2023-09-15] MEDS: FAMOTIDINE 20 MG TAB PO SCH (07:55)
[2023-09-15] MEDS: METOPROLOL TART 50 MG TAB PO SCH ×2 (09:00→21:21)
[2023-09-15] MEDS: MIDODRINE 5 MG TAB PO SCH ×2 (13:25→15:35)
[2023-09-15 14:06] LABS: MEAN CORPUSCULAR HEMOGLOBIN 26.5 pg (27.0-33.0); MEAN CORPUSCULAR HGB CONC 28.5 g/dl (32.0-36.5); MEAN CORPUSCULAR VOLUME 93.2 fl (80.0-96.0); PLATELET COUNT, AUTOMATED 201 10^3/uL (150-450); RED BLOOD COUNT 1.62 10^6/uL (4.00-5.40); WHITE BLOOD COUNT 13.8 10^3/uL (4.0-10.0)
[2023-09-15 14:19] LABS: HEMATOCRIT 15.1 % (36.0-47.0); HEMOGLOBIN 4.3 g/dl (12.0-15.5)
[2023-09-15 14:23] LABS: ALBUMIN 2.7 G/DL (3.2-5.2); ALKALINE PHOSPHATASE 65 U/L (46-116); ALT/SGPT 50 U/L (7.0-40); AST/SGOT 35 U/L (<34); BLOOD UREA NITROGEN 23 MG/DL (9-23); CALCIUM LEVEL 7.8 MG/DL (8.3-10.6); CARBON DIOXIDE LEVEL 37 MMOL/L (20-31); CHLORIDE LEVEL 102 MMOL/L (98-107); CREATININE FOR GFR 0.97 MG/DL (0.55-1.30); GLOMERULAR FILTRATION RATE > 60.0 (>45); GLUCOSE, FASTING 111 MG/DL (74-106); POTASSIUM SERUM 4.3 MMOL/L (3.5-5.1); SODIUM LEVEL 143 MMOL/L (136-145); TOTAL PROTEIN 5.1 G/DL (5.7-8.2)
[2023-09-15 15:13] LABS: INR 1.44; PROTHROMBIN TIME 17.2 SECONDS (12.5-14.5)
[2023-09-15 15:22] LABS: HEMOGLOBIN 4.2 g/dl (12.0-15.5)
[2023-09-15 15:31] LABS: PROCALCITONIN 0.12 ng/ml
[2023-09-15] MEDS: RAMELTEON 8 MG TAB (ROZEREM) PO SCH (21:21)
[2023-09-16] VITALS (16 sets, daily range): BP systolic 94–128; BP diastolic 52–105; TEMP 97.3–98.8; O2SAT 92–96
[2023-09-16] MEDS ORDERED: MORPHINE 2 MG/ML 1ML VIAL IV ONE (01:00)
[2023-09-16] MEDS: LEVALBUTEROL 1.25MG 0.5ML CONCENTRATE NEB INH SCH ×4 (02:03→19:43)
[2023-09-16 06:21] LABS: HEMATOCRIT 22.7 % (36.0-47.0)
[2023-09-16 06:24] LABS: HEMOGLOBIN 7.2 g/dl (12.0-15.5)
[2023-09-16 06:38] LABS: BLOOD UREA NITROGEN 22 MG/DL (9-23); CALCIUM LEVEL 7.2 MG/DL (8.3-10.6); CARBON DIOXIDE LEVEL 38 MMOL/L (20-31); CHLORIDE LEVEL 104 MMOL/L (98-107); CREATININE FOR GFR 0.89 MG/DL (0.55-1.30); GLOMERULAR FILTRATION RATE > 60.0 (>45); GLUCOSE, FASTING 124 MG/DL (74-106); SODIUM LEVEL 145 MMOL/L (136-145)
[2023-09-16] MEDS ORDERED: ISOVUE-370 76% 100ML VIAL As Ordered ONE (07:32)
[2023-09-16] MEDS: FORMOTEROL FUMARATE 20 MCG/2 ML INHALATION SOLUTION (PERFOROMIST) INH SCH ×2 (08:05→19:43)
[2023-09-16] MEDS: INSULIN LISPRO (NovoLOG) PER UNIT SC SCH ×4 (09:01→21:00)
[2023-09-16] MEDS: FAMOTIDINE 20 MG TAB PO SCH (09:01)
[2023-09-16] MEDS: ASPIRIN 81MG ENTERIC TABLET PO SCH (09:01)
[2023-09-16] MEDS: ATORVASTATIN 20 MG TAB PO SCH (09:02)
[2023-09-16] MEDS: guaiFENesin ER TABLET 600 MG TAB PO SCH ×2 (09:02→20:34)
[2023-09-16] MEDS: DIGOXIN 0.125 MG TAB PO SCH (09:02)
[2023-09-16] MEDS: METOPROLOL TART 50 MG TAB PO SCH ×2 (09:03→20:35)
[2023-09-16] MEDS: allopurinoL 100 MG TAB PO SCH (09:03)
[2023-09-16] MEDS: SERTRALINE HCL 25 MG TABLET PO SCH (09:06)
[2023-09-16] MEDS: MIDODRINE 5 MG TAB PO SCH ×3 (09:07→17:37)
[2023-09-16] MEDS: FUROSEMIDE 20MG/2ML VIAL IV SCH ×2 (14:00→18:00)
[2023-09-16 14:44] LABS: HEMATOCRIT 25.8 % (36.0-47.0); HEMOGLOBIN 8.3 g/dl (12.0-15.5)
[2023-09-16] MEDS: ANEXSIA, NORCO 7.5MG/325MG TABLET(HYDROCODONE/APAP) PO PRN (17:44)
[2023-09-16 18:57] LABS: HEMATOCRIT 26.4 % (36.0-47.0); HEMOGLOBIN 8.2 g/dl (12.0-15.5)
[2023-09-16] MEDS: RAMELTEON 8 MG TAB (ROZEREM) PO SCH (20:34)
[2023-09-17 00:40] LABS: HEMATOCRIT 26.8 % (36.0-47.0); HEMOGLOBIN 8.3 g/dl (12.0-15.5)
[2023-09-17] MEDS: ANEXSIA, NORCO 7.5MG/325MG TABLET(HYDROCODONE/APAP) PO PRN ×2 (00:40→19:25)
[2023-09-17] MEDS: LEVALBUTEROL 1.25MG 0.5ML CONCENTRATE NEB INH SCH ×4 (01:29→20:02)
[2023-09-17] MEDS: ACETAMINOPHEN TAB 650MG DOSE (2X325MG) PO PRN (02:08)
[2023-09-17] MEDS ORDERED: ACETAMINOPHEN TAB 650MG DOSE (2X325MG) PO ONE (03:00)
[2023-09-17 04:40] VITALS: BP 115/67; TEMP 97.7; O2SAT 94
[2023-09-17 06:24] LABS: HEMATOCRIT 26.9 % (36.0-47.0); HEMOGLOBIN 8.4 g/dl (12.0-15.5)
[2023-09-17 06:57] LABS: BLOOD UREA NITROGEN 18 MG/DL (9-23); CALCIUM LEVEL 7.7 MG/DL (8.3-10.6); CARBON DIOXIDE LEVEL 38 MMOL/L (20-31); CHLORIDE LEVEL 102 MMOL/L (98-107); CREATININE FOR GFR 0.87 MG/DL (0.55-1.30); GLOMERULAR FILTRATION RATE > 60.0 (>45); GLUCOSE, FASTING 116 MG/DL (74-106); POTASSIUM SERUM 3.7 MMOL/L (3.5-5.1); SODIUM LEVEL 144 MMOL/L (136-145)
[2023-09-17] MEDS: FORMOTEROL FUMARATE 20 MCG/2 ML INHALATION SOLUTION (PERFOROMIST) INH SCH ×2 (07:44→20:02)
[2023-09-17] MEDS: INSULIN LISPRO (NovoLOG) PER UNIT SC SCH ×4 (09:56→20:40)
[2023-09-17] MEDS: SERTRALINE HCL 25 MG TABLET PO SCH (09:57)
[2023-09-17] MEDS: ASPIRIN 81MG ENTERIC TABLET PO SCH (09:57)
[2023-09-17] MEDS: MIDODRINE 5 MG TAB PO SCH ×3 (09:57→16:33)
[2023-09-17] MEDS: guaiFENesin ER TABLET 600 MG TAB PO SCH ×2 (09:57→20:34)
[2023-09-17] MEDS: DIGOXIN 0.125 MG TAB PO SCH (09:58)
[2023-09-17] MEDS: allopurinoL 100 MG TAB PO SCH (09:58)
[2023-09-17] MEDS: METOPROLOL TART 50 MG TAB PO SCH ×2 (09:59→20:37)
[2023-09-17] MEDS: ATORVASTATIN 20 MG TAB PO SCH (09:59)
[2023-09-17] MEDS: FAMOTIDINE 20 MG TAB PO SCH (10:02)
[2023-09-17 16:33] VITALS: BP 110/68
[2023-09-17 20:00] VITALS: BP 129/72; TEMP 98.8; O2SAT 93
[2023-09-17] MEDS: RAMELTEON 8 MG TAB (ROZEREM) PO SCH (20:34)
[2023-09-18] MEDS: LEVALBUTEROL 1.25MG 0.5ML CONCENTRATE NEB INH SCH ×4 (00:10→19:43)
[2023-09-18] MEDS: ANEXSIA, NORCO 7.5MG/325MG TABLET(HYDROCODONE/APAP) PO PRN ×4 (00:50→21:34)
[2023-09-18] MEDS: ACETAMINOPHEN TAB 650MG DOSE (2X325MG) PO PRN (02:28)
[2023-09-18 06:00] VITALS: BP 100/57; TEMP 98.4; O2SAT 97
[2023-09-18] MEDS: FORMOTEROL FUMARATE 20 MCG/2 ML INHALATION SOLUTION (PERFOROMIST) INH SCH ×2 (07:49→19:43)
[2023-09-18 07:50] LABS: HEMATOCRIT 27.3 % (36.0-47.0); HEMOGLOBIN 8.3 g/dl (12.0-15.5); MEAN CORPUSCULAR HEMOGLOBIN 28.6 pg (27.0-33.0); MEAN CORPUSCULAR HGB CONC 30.4 g/dl (32.0-36.5); MEAN CORPUSCULAR VOLUME 94.1 fl (80.0-96.0); PLATELET COUNT, AUTOMATED 203 10^3/uL (150-450); WHITE BLOOD COUNT 10.9 10^3/uL (4.0-10.0)
[2023-09-18 08:14] LABS: BLOOD UREA NITROGEN 17 MG/DL (9-23); CALCIUM LEVEL 7.7 MG/DL (8.3-10.6); CARBON DIOXIDE LEVEL 36 MMOL/L (20-31); CHLORIDE LEVEL 102 MMOL/L (98-107); CREATININE FOR GFR 0.85 MG/DL (0.55-1.30); GLOMERULAR FILTRATION RATE > 60.0 (>45); GLUCOSE, FASTING 107 MG/DL (74-106); POTASSIUM SERUM 3.6 MMOL/L (3.5-5.1); SODIUM LEVEL 142 MMOL/L (136-145)
[2023-09-18] MEDS: METOPROLOL TART 50 MG TAB PO SCH ×2 (09:00→20:55)
[2023-09-18] MEDS: MIDODRINE 5 MG TAB PO SCH ×3 (09:57→17:31)
[2023-09-18] MEDS: INSULIN LISPRO (NovoLOG) PER UNIT SC SCH ×4 (09:57→20:49)
[2023-09-18] MEDS: ATORVASTATIN 20 MG TAB PO SCH (09:58)
[2023-09-18] MEDS: DIGOXIN 0.125 MG TAB PO SCH (09:58)
[2023-09-18] MEDS: SERTRALINE HCL 25 MG TABLET PO SCH (09:58)
[2023-09-18] MEDS: allopurinoL 100 MG TAB PO SCH (09:58)
[2023-09-18] MEDS: ASPIRIN 81MG ENTERIC TABLET PO SCH (09:58)
[2023-09-18] MEDS: FAMOTIDINE 20 MG TAB PO SCH (09:58)
[2023-09-18] MEDS: guaiFENesin ER TABLET 600 MG TAB PO SCH ×2 (09:58→20:53)
[2023-09-18 17:32] VITALS: BP 109/63
[2023-09-18] MEDS: RAMELTEON 8 MG TAB (ROZEREM) PO SCH (20:54)
[2023-09-19] MEDS: LEVALBUTEROL 1.25MG 0.5ML CONCENTRATE NEB INH SCH ×4 (01:32→19:16)
[2023-09-19 05:19] VITALS: BP 120/63; TEMP 97.9; O2SAT 97
[2023-09-19 06:01] LABS: HEMOGLOBIN 7.5 g/dl (12.0-15.5); MEAN CORPUSCULAR HEMOGLOBIN 28.7 pg (27.0-33.0); MEAN CORPUSCULAR VOLUME 95.8 fl (80.0-96.0); PLATELET COUNT, AUTOMATED 167 10^3/uL (150-450); RED BLOOD COUNT 2.61 10^6/uL (4.00-5.40); WHITE BLOOD COUNT 8.2 10^3/uL (4.0-10.0)
[2023-09-19] MEDS: FORMOTEROL FUMARATE 20 MCG/2 ML INHALATION SOLUTION (PERFOROMIST) INH SCH ×2 (07:27→19:16)
[2023-09-19] MEDS: INSULIN LISPRO (NovoLOG) PER UNIT SC SCH ×4 (07:30→20:18)
[2023-09-19] MEDS: METOPROLOL TART 50 MG TAB PO SCH ×2 (09:00→20:18)
[2023-09-19] MEDS: allopurinoL 100 MG TAB PO SCH (09:33)
[2023-09-19] MEDS: ASPIRIN 81MG ENTERIC TABLET PO SCH (09:33)
[2023-09-19] MEDS: SERTRALINE HCL 25 MG TABLET PO SCH (09:33)
[2023-09-19] MEDS: guaiFENesin ER TABLET 600 MG TAB PO SCH ×2 (09:33→20:18)
[2023-09-19] MEDS: ATORVASTATIN 20 MG TAB PO SCH (09:33)
[2023-09-19] MEDS: DIGOXIN 0.125 MG TAB PO SCH (09:34)
[2023-09-19] MEDS: MIDODRINE 5 MG TAB PO SCH ×3 (09:34→17:33)
[2023-09-19] MEDS: FAMOTIDINE 20 MG TAB PO SCH (09:35)
[2023-09-19] MEDS: ANEXSIA, NORCO 7.5MG/325MG TABLET(HYDROCODONE/APAP) PO PRN (13:04)
[2023-09-19 17:13] LABS: BLOOD UREA NITROGEN 14 MG/DL (7-21); CREATININE FOR GFR 0.7 MG/DL (0.7-1.5); GLOMERULAR FILTRATION RATE > 60.0 (>45); GLUCOSE, FASTING 92 MG/DL
[2023-09-19 17:14] LABS: CALCIUM LEVEL 7.6 MG/DL (8.8-10.2); CARBON DIOXIDE LEVEL 29 MEQ/L (22-30); CHLORIDE LEVEL 100 MEQ/L (98-107); POTASSIUM SERUM 3.8 MEQ/L (3.6-5.0); SODIUM LEVEL 142 MEQ/L (134-153)
[2023-09-19 19:49] VITALS: BP 117/63; TEMP 98.8; O2SAT 92
[2023-09-19] MEDS: RAMELTEON 8 MG TAB (ROZEREM) PO SCH (20:17)
[2023-09-20] MEDS: LEVALBUTEROL 1.25MG 0.5ML CONCENTRATE NEB INH SCH ×4 (01:29→19:34)
[2023-09-20 06:00] VITALS: BP 137/91; TEMP 97.7; O2SAT 93
[2023-09-20 06:23] LABS: HEMATOCRIT 24.4 % (36.0-47.0); HEMOGLOBIN 7.6 g/dl (12.0-15.5); MEAN CORPUSCULAR HGB CONC 31.1 g/dl (32.0-36.5); MEAN CORPUSCULAR VOLUME 93.1 fl (80.0-96.0); PLATELET COUNT, AUTOMATED 204 10^3/uL (150-450); RED BLOOD COUNT 2.62 10^6/uL (4.00-5.40); WHITE BLOOD COUNT 7.4 10^3/uL (4.0-10.0)
[2023-09-20] MEDS: FORMOTEROL FUMARATE 20 MCG/2 ML INHALATION SOLUTION (PERFOROMIST) INH SCH ×2 (07:48→19:34)
[2023-09-20] MEDS: IPRATROPIUM 0.5MG/ALBUTEROL 2.5MG INH SOL UD 3ML (DUONEB) NEB PRN (07:48)
[2023-09-20] MEDS: MIDODRINE 5 MG TAB PO SCH ×3 (08:00→17:29)
[2023-09-20] MEDS: ANEXSIA, NORCO 7.5MG/325MG TABLET(HYDROCODONE/APAP) PO PRN ×3 (08:13→23:35)
[2023-09-20] MEDS: FAMOTIDINE 20 MG TAB PO SCH (08:17)
[2023-09-20] MEDS: allopurinoL 100 MG TAB PO SCH (08:17)
[2023-09-20] MEDS: ASPIRIN 81MG ENTERIC TABLET PO SCH (08:17)
[2023-09-20] MEDS: METOPROLOL TART 50 MG TAB PO SCH ×2 (08:17→20:13)
[2023-09-20] MEDS: guaiFENesin ER TABLET 600 MG TAB PO SCH ×2 (08:18→20:13)
[2023-09-20] MEDS: ATORVASTATIN 20 MG TAB PO SCH (08:18)
[2023-09-20] MEDS: DIGOXIN 0.125 MG TAB PO SCH (08:18)
[2023-09-20] MEDS: SERTRALINE HCL 25 MG TABLET PO SCH (08:18)
[2023-09-20] MEDS: INSULIN LISPRO (NovoLOG) PER UNIT SC SCH ×4 (09:23→20:05)
[2023-09-20 16:47] VITALS: BP 128/81
[2023-09-20] MEDS: RAMELTEON 8 MG TAB (ROZEREM) PO SCH (20:13)
[2023-09-21] MEDS: LEVALBUTEROL 1.25MG 0.5ML CONCENTRATE NEB INH SCH ×4 (01:51→19:18)
[2023-09-21 04:56] VITALS: BP 128/81; TEMP 97.5; O2SAT 93
[2023-09-21 05:50] LABS: HEMATOCRIT 25.4 % (36.0-47.0); HEMOGLOBIN 7.6 g/dl (12.0-15.5); MEAN CORPUSCULAR HEMOGLOBIN 28.4 pg (27.0-33.0); MEAN CORPUSCULAR HGB CONC 29.9 g/dl (32.0-36.5); MEAN CORPUSCULAR VOLUME 94.8 fl (80.0-96.0); PLATELET COUNT, AUTOMATED 204 10^3/uL (150-450); RED BLOOD COUNT 2.68 10^6/uL (4.00-5.40); WHITE BLOOD COUNT 7.2 10^3/uL (4.0-10.0)
[2023-09-21] MEDS: FORMOTEROL FUMARATE 20 MCG/2 ML INHALATION SOLUTION (PERFOROMIST) INH SCH ×2 (07:30→19:18)
[2023-09-21] MEDS: INSULIN LISPRO (NovoLOG) PER UNIT SC SCH ×4 (08:38→20:32)
[2023-09-21] MEDS: MIDODRINE 5 MG TAB PO SCH ×3 (08:38→15:59)
[2023-09-21] MEDS: SERTRALINE HCL 25 MG TABLET PO SCH (08:38)
[2023-09-21] MEDS: METOPROLOL TART 50 MG TAB PO SCH ×2 (08:41→20:31)
[2023-09-21] MEDS: allopurinoL 100 MG TAB PO SCH (08:41)
[2023-09-21] MEDS: guaiFENesin ER TABLET 600 MG TAB PO SCH ×2 (08:41→20:32)
[2023-09-21] MEDS: ASPIRIN 81MG ENTERIC TABLET PO SCH (08:42)
[2023-09-21] MEDS: ATORVASTATIN 20 MG TAB PO SCH (08:42)
[2023-09-21] MEDS: FAMOTIDINE 20 MG TAB PO SCH (08:43)
[2023-09-21] MEDS: DIGOXIN 0.125 MG TAB PO SCH (08:43)
[2023-09-21] MEDS: ANEXSIA, NORCO 7.5MG/325MG TABLET(HYDROCODONE/APAP) PO PRN ×3 (09:50→20:29)
[2023-09-21 10:58] VITALS: BP 128/79; TEMP 98.2; O2SAT 95
[2023-09-21 11:12] LABS: BLOOD UREA NITROGEN 11 MG/DL (7-21); CREATININE FOR GFR 0.6 MG/DL (0.7-1.5); GLOMERULAR FILTRATION RATE > 60.0 (>45); GLUCOSE, FASTING 103 MG/DL
[2023-09-21 11:13] LABS: CALCIUM LEVEL 8.1 MG/DL (8.8-10.2); CARBON DIOXIDE LEVEL 30 MEQ/L (22-30); CHLORIDE LEVEL 100 MEQ/L (98-107); POTASSIUM SERUM 3.6 MEQ/L (3.6-5.0); SODIUM LEVEL 141 MEQ/L (134-153)
[2023-09-21 11:15] VITALS: BP 122/76; TEMP 98.4; O2SAT 94
[2023-09-21 12:00] VITALS: BP 116/76; TEMP 98.1; O2SAT 94
[2023-09-21 13:00] VITALS: BP 116/77; TEMP 98.1; O2SAT 94
[2023-09-21 13:50] VITALS: BP 101/58; TEMP 98.1; O2SAT 93
[2023-09-21] MEDS: RAMELTEON 8 MG TAB (ROZEREM) PO SCH (20:32)
[2023-09-22] MEDS: ACETAMINOPHEN TAB 650MG DOSE (2X325MG) PO PRN ×4 (00:45→21:02)
[2023-09-22] MEDS: LEVALBUTEROL 1.25MG 0.5ML CONCENTRATE NEB INH SCH ×4 (01:08→20:06)
[2023-09-22 05:52] LABS: HEMATOCRIT 28.3 % (36.0-47.0); HEMOGLOBIN 8.4 g/dl (12.0-15.5); MEAN CORPUSCULAR HEMOGLOBIN 28.2 pg (27.0-33.0); MEAN CORPUSCULAR HGB CONC 29.7 g/dl (32.0-36.5); PLATELET COUNT, AUTOMATED 229 10^3/uL (150-450); RED BLOOD COUNT 2.98 10^6/uL (4.00-5.40); WHITE BLOOD COUNT 7.2 10^3/uL (4.0-10.0)
[2023-09-22 05:55] VITALS: BP 136/85; TEMP 97.4; O2SAT 93
[2023-09-22] MEDS: ANEXSIA, NORCO 7.5MG/325MG TABLET(HYDROCODONE/APAP) PO PRN ×5 (06:07→22:37)
[2023-09-22] MEDS: FORMOTEROL FUMARATE 20 MCG/2 ML INHALATION SOLUTION (PERFOROMIST) INH SCH ×2 (07:16→20:06)
[2023-09-22] MEDS: MIDODRINE 5 MG TAB PO SCH ×3 (08:19→16:59)
[2023-09-22] MEDS: ATORVASTATIN 20 MG TAB PO SCH (08:20)
[2023-09-22] MEDS: SERTRALINE HCL 25 MG TABLET PO SCH (08:20)
[2023-09-22] MEDS: guaiFENesin ER TABLET 600 MG TAB PO SCH ×2 (08:20→21:02)
[2023-09-22] MEDS: FAMOTIDINE 20 MG TAB PO SCH (08:20)
[2023-09-22] MEDS: allopurinoL 100 MG TAB PO SCH (08:20)
[2023-09-22] MEDS: ASPIRIN 81MG ENTERIC TABLET PO SCH (08:20)
[2023-09-22] MEDS: INSULIN LISPRO (NovoLOG) PER UNIT SC SCH ×4 (08:21→21:00)
[2023-09-22] MEDS: METOPROLOL TART 50 MG TAB PO SCH ×2 (08:21→21:02)
[2023-09-22] MEDS: DIGOXIN 0.125 MG TAB PO SCH (08:21)
[2023-09-22 13:54] LABS: GLUCOSE, FASTING 100 MG/DL
[2023-09-22 13:55] LABS: BLOOD UREA NITROGEN 14 MG/DL (7-21); CALCIUM LEVEL 8.2 MG/DL (8.8-10.2); CARBON DIOXIDE LEVEL 30 MEQ/L (22-30); CHLORIDE LEVEL 103 MEQ/L (98-107); CREATININE FOR GFR 0.7 MG/DL (0.7-1.5); GLOMERULAR FILTRATION RATE > 60.0 (>45); POTASSIUM SERUM 3.8 MEQ/L (3.6-5.0); SODIUM LEVEL 144 MEQ/L (134-153)
[2023-09-22 20:02] VITALS: BP 126/79
[2023-09-22 20:07] VITALS: O2SAT 98
[2023-09-22] MEDS: RAMELTEON 8 MG TAB (ROZEREM) PO SCH (21:04)
[2023-09-23] MEDS: LEVALBUTEROL 1.25MG 0.5ML CONCENTRATE NEB INH SCH ×4 (02:07→19:31)
[2023-09-23 04:58] VITALS: BP 122/68; TEMP 97.5; O2SAT 98
[2023-09-23 06:01] LABS: HEMATOCRIT 30.1 % (36.0-47.0); HEMOGLOBIN 8.8 g/dl (12.0-15.5); MEAN CORPUSCULAR HGB CONC 29.2 g/dl (32.0-36.5); MEAN CORPUSCULAR VOLUME 95.9 fl (80.0-96.0); PLATELET COUNT, AUTOMATED 239 10^3/uL (150-450); RED BLOOD COUNT 3.14 10^6/uL (4.00-5.40); WHITE BLOOD COUNT 6.9 10^3/uL (4.0-10.0)
[2023-09-23] MEDS: FORMOTEROL FUMARATE 20 MCG/2 ML INHALATION SOLUTION (PERFOROMIST) INH SCH ×2 (07:12→19:31)
[2023-09-23] MEDS: INSULIN LISPRO (NovoLOG) PER UNIT SC SCH ×4 (07:47→20:04)
[2023-09-23] MEDS: ANEXSIA, NORCO 7.5MG/325MG TABLET(HYDROCODONE/APAP) PO PRN (07:47)
[2023-09-23] MEDS: MIDODRINE 5 MG TAB PO SCH ×3 (07:48→17:01)
[2023-09-23 08:08] VITALS: BP 138/95; TEMP 97.7; O2SAT 94
[2023-09-23] MEDS: ASPIRIN 81MG ENTERIC TABLET PO SCH (08:59)
[2023-09-23] MEDS: allopurinoL 100 MG TAB PO SCH (08:59)
[2023-09-23] MEDS: SERTRALINE HCL 25 MG TABLET PO SCH (08:59)
[2023-09-23] MEDS: guaiFENesin ER TABLET 600 MG TAB PO SCH ×2 (08:59→20:14)
[2023-09-23] MEDS: DIGOXIN 0.125 MG TAB PO SCH (08:59)
[2023-09-23] MEDS: FAMOTIDINE 20 MG TAB PO SCH (08:59)
[2023-09-23] MEDS: METOPROLOL TART 50 MG TAB PO SCH ×2 (09:00→20:14)
[2023-09-23] MEDS: ATORVASTATIN 20 MG TAB PO SCH (09:00)
[2023-09-23] MEDS ORDERED: ISOVUE-370 76% 100ML VIAL As Ordered ONE (10:31)
[2023-09-23 12:25] VITALS: BP 137/68
[2023-09-23] MEDS: PERCOCET 5MG/325MG TAB PO PRN ×2 (12:28→20:17)
[2023-09-23 13:12] VITALS: BP 124/73; TEMP 98.1; O2SAT 97
[2023-09-23 14:22] LABS: BLOOD UREA NITROGEN 11 MG/DL (7-21); CREATININE FOR GFR 0.6 MG/DL (0.7-1.5); GLOMERULAR FILTRATION RATE > 60.0 (>45); GLUCOSE, FASTING 104 MG/DL
[2023-09-23 14:23] LABS: CALCIUM LEVEL 8.2 MG/DL (8.8-10.2); CARBON DIOXIDE LEVEL 32 MEQ/L (22-30); CHLORIDE LEVEL 101 MEQ/L (98-107); POTASSIUM SERUM 3.6 MEQ/L (3.6-5.0); SODIUM LEVEL 143 MEQ/L (134-153)
[2023-09-23 18:30] VITALS: BP 126/74; TEMP 97.5; O2SAT 95
[2023-09-23] MEDS: RAMELTEON 8 MG TAB (ROZEREM) PO SCH (20:14)
[2023-09-24] MEDS: LEVALBUTEROL 1.25MG 0.5ML CONCENTRATE NEB INH SCH ×4 (01:50→19:33)
[2023-09-24 06:00] VITALS: BP 152/96; TEMP 97.5; O2SAT 93
[2023-09-24 06:30] LABS: MEAN CORPUSCULAR HEMOGLOBIN 28.2 pg (27.0-33.0); MEAN CORPUSCULAR VOLUME 97.2 fl (80.0-96.0); PLATELET COUNT, AUTOMATED 261 10^3/uL (150-450); RED BLOOD COUNT 3.19 10^6/uL (4.00-5.40); WHITE BLOOD COUNT 6.7 10^3/uL (4.0-10.0)
[2023-09-24] MEDS: FORMOTEROL FUMARATE 20 MCG/2 ML INHALATION SOLUTION (PERFOROMIST) INH SCH ×2 (07:35→19:33)
[2023-09-24] MEDS: MIDODRINE 5 MG TAB PO SCH ×3 (09:17→15:09)
[2023-09-24] MEDS: FAMOTIDINE 20 MG TAB PO SCH (09:18)
[2023-09-24] MEDS: ASPIRIN 81MG ENTERIC TABLET PO SCH (09:18)
[2023-09-24] MEDS: INSULIN LISPRO (NovoLOG) PER UNIT SC SCH ×4 (09:18→20:50)
[2023-09-24] MEDS: DIGOXIN 0.125 MG TAB PO SCH (09:18)
[2023-09-24] MEDS: allopurinoL 100 MG TAB PO SCH (09:18)
[2023-09-24] MEDS: SERTRALINE HCL 25 MG TABLET PO SCH (09:19)
[2023-09-24] MEDS: METOPROLOL TART 50 MG TAB PO SCH ×2 (09:19→19:28)
[2023-09-24] MEDS: ATORVASTATIN 20 MG TAB PO SCH (09:19)
[2023-09-24] MEDS: guaiFENesin ER TABLET 600 MG TAB PO SCH ×2 (09:19→19:27)
[2023-09-24 12:18] VITALS: BP 136/83
[2023-09-24 15:09] VITALS: BP 132/83
[2023-09-24] MEDS: PERCOCET 5MG/325MG TAB PO PRN ×2 (15:12→22:45)
[2023-09-24] MEDS: ACETAMINOPHEN TAB 650MG DOSE (2X325MG) PO PRN (19:26)
[2023-09-24] MEDS: RAMELTEON 8 MG TAB (ROZEREM) PO SCH (19:27)
[2023-09-25] MEDS: LEVALBUTEROL 1.25MG 0.5ML CONCENTRATE NEB INH SCH ×4 (01:22→19:28)
[2023-09-25] MEDS: PERCOCET 5MG/325MG TAB PO PRN ×3 (05:24→23:06)
[2023-09-25 06:00] VITALS: BP 139/82; TEMP 97.9; O2SAT 96
[2023-09-25] MEDS: FORMOTEROL FUMARATE 20 MCG/2 ML INHALATION SOLUTION (PERFOROMIST) INH SCH ×2 (07:19→19:28)
[2023-09-25] MEDS: MIDODRINE 5 MG TAB PO SCH ×3 (08:00→16:22)
[2023-09-25] MEDS: allopurinoL 100 MG TAB PO SCH (08:36)
[2023-09-25] MEDS: ASPIRIN 81MG ENTERIC TABLET PO SCH (08:36)
[2023-09-25] MEDS: guaiFENesin ER TABLET 600 MG TAB PO SCH ×2 (08:36→20:35)
[2023-09-25] MEDS: ATORVASTATIN 20 MG TAB PO SCH (08:36)
[2023-09-25] MEDS: FAMOTIDINE 20 MG TAB PO SCH (08:37)
[2023-09-25] MEDS: METOPROLOL TART 50 MG TAB PO SCH ×2 (08:37→20:35)
[2023-09-25] MEDS: SERTRALINE HCL 25 MG TABLET PO SCH (08:37)
[2023-09-25] MEDS: DIGOXIN 0.125 MG TAB PO SCH (08:37)
[2023-09-25] MEDS: INSULIN LISPRO (NovoLOG) PER UNIT SC SCH ×4 (08:38→21:00)
[2023-09-25 12:30] VITALS: BP 134/77
[2023-09-25] MEDS: RAMELTEON 8 MG TAB (ROZEREM) PO SCH (20:35)
[2023-09-26] MEDS: LEVALBUTEROL 1.25MG 0.5ML CONCENTRATE NEB INH SCH ×4 (01:38→19:55)
[2023-09-26] MEDS: PERCOCET 5MG/325MG TAB PO PRN ×3 (05:27→19:21)
[2023-09-26 06:00] VITALS: BP 119/73; TEMP 98.1; O2SAT 97
[2023-09-26] MEDS: INSULIN LISPRO (NovoLOG) PER UNIT SC SCH ×4 (07:30→21:00)
[2023-09-26] MEDS: FORMOTEROL FUMARATE 20 MCG/2 ML INHALATION SOLUTION (PERFOROMIST) INH SCH ×2 (07:43→19:55)
[2023-09-26] MEDS: MIDODRINE 5 MG TAB PO SCH ×3 (07:46→15:53)
[2023-09-26] MEDS: DIGOXIN 0.125 MG TAB PO SCH (07:47)
[2023-09-26] MEDS: ASPIRIN 81MG ENTERIC TABLET PO SCH (07:47)
[2023-09-26] MEDS: METOPROLOL TART 50 MG TAB PO SCH ×2 (07:48→21:41)
[2023-09-26] MEDS: ATORVASTATIN 20 MG TAB PO SCH (07:48)
[2023-09-26] MEDS: guaiFENesin ER TABLET 600 MG TAB PO SCH ×2 (07:49→21:39)
[2023-09-26] MEDS: FAMOTIDINE 20 MG TAB PO SCH (07:49)
[2023-09-26] MEDS: allopurinoL 100 MG TAB PO SCH (07:49)
[2023-09-26] MEDS: SERTRALINE HCL 25 MG TABLET PO SCH (07:49)
[2023-09-26] MEDS: RAMELTEON 8 MG TAB (ROZEREM) PO SCH (21:39)
[2023-09-27] MEDS: LEVALBUTEROL 1.25MG 0.5ML CONCENTRATE NEB INH SCH ×4 (01:12→20:02)
[2023-09-27 06:06] VITALS: BP 124/75; TEMP 98.2; O2SAT 97
[2023-09-27] MEDS: FORMOTEROL FUMARATE 20 MCG/2 ML INHALATION SOLUTION (PERFOROMIST) INH SCH ×2 (07:05→20:02)
[2023-09-27] MEDS: guaiFENesin ER TABLET 600 MG TAB PO SCH ×2 (08:48→20:48)
[2023-09-27] MEDS: FAMOTIDINE 20 MG TAB PO SCH (08:48)
[2023-09-27] MEDS: INSULIN LISPRO (NovoLOG) PER UNIT SC SCH ×4 (08:48→20:23)
[2023-09-27] MEDS: SERTRALINE HCL 25 MG TABLET PO SCH (08:49)
[2023-09-27] MEDS: PERCOCET 5MG/325MG TAB PO PRN ×2 (08:52→18:26)
[2023-09-27] MEDS: allopurinoL 100 MG TAB PO SCH (08:52)
[2023-09-27] MEDS: ATORVASTATIN 20 MG TAB PO SCH (08:52)
[2023-09-27] MEDS: ASPIRIN 81MG ENTERIC TABLET PO SCH (08:52)
[2023-09-27] MEDS: METOPROLOL TART 50 MG TAB PO SCH ×2 (08:54→20:49)
[2023-09-27] MEDS: MIDODRINE 5 MG TAB PO SCH ×3 (08:55→16:22)
[2023-09-27] MEDS: DIGOXIN 0.125 MG TAB PO SCH (08:55)
[2023-09-27 12:17] VITALS: BP 101/57
[2023-09-27 16:22] VITALS: BP 116/73
[2023-09-27 20:24] VITALS: BP 127/68
[2023-09-27] MEDS: RAMELTEON 8 MG TAB (ROZEREM) PO SCH (20:48)
[2023-09-27] MEDS: APIXABAN 5 MG TAB (ELIQUIS) PO SCH (20:48)
[2023-09-28] MEDS: LEVALBUTEROL 1.25MG 0.5ML CONCENTRATE NEB INH SCH ×4 (01:45→20:12)
[2023-09-28] MEDS: PERCOCET 5MG/325MG TAB PO PRN ×3 (02:47→20:21)
[2023-09-28 05:30] VITALS: BP 127/69; TEMP 97.9; O2SAT 98
[2023-09-28] MEDS: FORMOTEROL FUMARATE 20 MCG/2 ML INHALATION SOLUTION (PERFOROMIST) INH SCH ×2 (07:27→20:12)
[2023-09-28] MEDS: TIOTROPIUM INHALER/CAPSULE (SPIRIVA) INH SCH (07:27)
[2023-09-28] MEDS: INSULIN LISPRO (NovoLOG) PER UNIT SC SCH ×4 (07:30→20:38)
[2023-09-28] MEDS: MIDODRINE 5 MG TAB PO SCH ×3 (08:00→15:23)
[2023-09-28] MEDS: SERTRALINE HCL 25 MG TABLET PO SCH (08:37)
[2023-09-28] MEDS: APIXABAN 5 MG TAB (ELIQUIS) PO SCH ×2 (08:37→20:22)
[2023-09-28] MEDS: METOPROLOL TART 50 MG TAB PO SCH ×2 (08:37→20:22)
[2023-09-28] MEDS: ATORVASTATIN 20 MG TAB PO SCH (08:37)
[2023-09-28] MEDS: DIGOXIN 0.125 MG TAB PO SCH (08:37)
[2023-09-28] MEDS: allopurinoL 100 MG TAB PO SCH (08:37)
[2023-09-28] MEDS: FAMOTIDINE 20 MG TAB PO SCH (08:38)
[2023-09-28] MEDS: guaiFENesin ER TABLET 600 MG TAB PO SCH ×2 (08:38→20:22)
[2023-09-28 15:24] VITALS: BP 122/70
[2023-09-28 19:40] VITALS: BP 130/80; TEMP 98.1; O2SAT 96
[2023-09-28] MEDS: RAMELTEON 8 MG TAB (ROZEREM) PO SCH (20:22)
[2023-09-29] MEDS: LEVALBUTEROL 1.25MG 0.5ML CONCENTRATE NEB INH SCH ×2 (03:09→07:57)
[2023-09-29 05:24] VITALS: BP 157/93; TEMP 97; O2SAT 97
[2023-09-29] MEDS: PERCOCET 5MG/325MG TAB PO PRN ×2 (06:52→13:08)
[2023-09-29 07:22] VITALS: O2SAT 93
[2023-09-29] MEDS: INSULIN LISPRO (NovoLOG) PER UNIT SC SCH ×2 (07:30→13:09)
[2023-09-29] MEDS: TIOTROPIUM INHALER/CAPSULE (SPIRIVA) INH SCH (07:57)
[2023-09-29] MEDS: FORMOTEROL FUMARATE 20 MCG/2 ML INHALATION SOLUTION (PERFOROMIST) INH SCH (07:57)
[2023-09-29 08:54] VITALS: BP 127/73
[2023-09-29 08:58] VITALS: BP 127/73
[2023-09-29] MEDS: METOPROLOL TART 50 MG TAB PO SCH (08:58)
[2023-09-29] MEDS: APIXABAN 5 MG TAB (ELIQUIS) PO SCH (08:59)
[2023-09-29] MEDS: allopurinoL 100 MG TAB PO SCH (08:59)
[2023-09-29] MEDS: guaiFENesin ER TABLET 600 MG TAB PO SCH (08:59)
[2023-09-29] MEDS: FAMOTIDINE 20 MG TAB PO SCH (08:59)
[2023-09-29] MEDS: SERTRALINE HCL 25 MG TABLET PO SCH (08:59)
[2023-09-29] MEDS: MIDODRINE 5 MG TAB PO SCH ×2 (08:59→13:08)
[2023-09-29] MEDS: ATORVASTATIN 20 MG TAB PO SCH (08:59)
[2023-09-29] MEDS: DIGOXIN 0.125 MG TAB PO SCH (09:00)
[2023-09-29] MEDS ORDERED: MIDO10TA PO (12:44)
[2023-09-29 13:05] VITALS: BP 125/75
== END 2023-09-29 13:50 | disposition home or self-care (01) | DRG 133 ==
LOC: M ED 12:14 → M ED INP 17:30 → M PCU 20:44 → M MS4PR 09-03 22:45 → M MSPAV 09-10 23:31
PROVIDERS: ADMIT Student in an Organized Health Care Education/Training Program; ATTEND Internal Medicine
PROC: 30233N1 Transfusion of Nonautologous Red Blood Cells into Peripheral Vein, Percutaneous Approach (ICD-10-PCS; principal; 2023-09-15)
DX: J96.22 Acute and chronic respiratory failure with hypercapnia (principal); J96.21 Acute and chronic respiratory failure with hypoxia; J44.1 Chronic obstructive pulmonary disease with (acute) exacerbation; I11.0 Hypertensive heart disease with heart failure; I50.32 Chronic diastolic (congestive) heart failure; E87.20 Acidosis, unspecified; Z86.16 Personal history of COVID-19; B97.89 Other viral agents as the cause of diseases classified elsewhere; I27.20 Pulmonary hypertension, unspecified; E66.2 Morbid (severe) obesity with alveolar hypoventilation; Z99.81 Dependence on supplemental oxygen; F17.200 Nicotine dependence, unspecified, uncomplicated; I48.91 Unspecified atrial fibrillation; M10.9 Gout, unspecified; G89.29 Other chronic pain; E78.5 Hyperlipidemia, unspecified; K21.9 Gastro-esophageal reflux disease without esophagitis; E11.9 Type 2 diabetes mellitus without complications; I21.4 Non-ST elevation (NSTEMI) myocardial infarction; G47.00 Insomnia, unspecified; N17.9 Acute kidney failure, unspecified; M79.81 Nontraumatic hematoma of soft tissue; D62 Acute posthemorrhagic anemia; Z66 Do not resuscitate; Z79.82 Long term (current) use of aspirin; Z79.899 Other long term (current) drug therapy; Z79.01 Long term (current) use of anticoagulants

== ENCOUNTER 2023-10-01 16:35 | Observation (INO) | payer OTHER ==
[~2023-10-01] VITALS: Ht 177.8 cm; Wt 132.4 kg
[~2023-10-01 16:35] MED LIST changes: +ALLO100T PO; +DIGO0.123 PO; +FERR325T19 PO; +GABA-1171 PO; +MIDO10TA PO; +ROZE8TAB16 PO
[2023-10-01 17:48] LABS: BASO % 0.2 % (0.0-1.0); EOS # 0.1 10^3/uL (0.0-0.5); EOS % 1.8 % (0.0-3.0); HEMATOCRIT 34.1 % (36.0-47.0); HEMOGLOBIN 10.1 g/dl (12.0-15.5); LYMPH # 0.7 10^3/uL (1.5-5.0); LYMPH % 13.2 % (24.0-44.0); MEAN CORPUSCULAR HEMOGLOBIN 28.4 pg (27.0-33.0); MEAN CORPUSCULAR HGB CONC 29.6 g/dl (32.0-36.5); MEAN CORPUSCULAR VOLUME 95.8 fl (80.0-96.0); MONO # 0.3 10^3/uL (0.0-0.8); MONO % 6.7 % (2.0-8.0); NEUTROPHILS % 77.7 % (36.0-66.0); PLATELET COUNT, AUTOMATED 285 10^3/uL (150-450); RED BLOOD COUNT 3.56 10^6/uL (4.00-5.40); WHITE BLOOD COUNT 5.1 10^3/uL (4.0-10.0)
[2023-10-01 18:00] LABS: INR 1.29; PROTHROMBIN TIME 15.7 SECONDS (12.5-14.5)
[2023-10-01 18:13] LABS: CK-MB VALUE MASS 1.8 NG/ML (<3.6)
[2023-10-01 18:14] LABS: CPK CREATINE PHOSPHOKINASE 32 U/L (34-145); MB/CK RELATIVE INDEX 5.62 (< OR =4)
[2023-10-01 18:15] LABS: ALBUMIN 3.2 G/DL (3.2-5.2); ALKALINE PHOSPHATASE 119 U/L (46-116); ALT/SGPT 19 U/L (7.0-40); AST/SGOT 25 U/L (<34); BILIRUBIN,DIRECT 0.9 MG/DL (<0.4); BILIRUBIN,TOTAL 1.6 MG/DL (0.3-1.2); BLOOD UREA NITROGEN 15 MG/DL (9-23); CALCIUM LEVEL 8.4 MG/DL (8.3-10.6); CARBON DIOXIDE LEVEL 34 MMOL/L (20-31); CHLORIDE LEVEL 104 MMOL/L (98-107); CREATININE FOR GFR 0.93 MG/DL (0.55-1.30); GLOMERULAR FILTRATION RATE > 60.0 (>45); GLUCOSE, FASTING 148 MG/DL (74-106); POTASSIUM SERUM 3.3 MMOL/L (3.5-5.1); SODIUM LEVEL 146 MMOL/L (136-145); TOTAL PROTEIN 6.4 G/DL (5.7-8.2)
[2023-10-01 18:55] LABS: RSV AMPLIFICATION NEGATIVE (NEGATIVE)
[2023-10-01] MEDS ORDERED: IPRATROPIUM 0.5MG/ALBUTEROL 2.5MG INH SOL UD 3ML (DUONEB) NEB ONE (20:20)
[2023-10-01] MEDS ORDERED: ONDANSETRON 4MG 2ML VIAL IV ONE (20:20)
[2023-10-01] MEDS ORDERED: ISOVUE-370 76% 100ML VIAL As Ordered ONE (20:28)
[2023-10-01] MEDS: MORPHINE 4 MG/ML 1ML VIAL IV PRN ×2 (20:29→21:18)
[2023-10-01 21:04] LABS: CK-MB VALUE MASS 2.2 NG/ML (<3.6)
[2023-10-01 21:05] LABS: MB/CK RELATIVE INDEX 7.33 (< OR =4)
[2023-10-01] MEDS ORDERED: MED REC IN PROGRESS XX SCH (22:45)
[2023-10-01] MEDS ORDERED: TREL1AER PO (23:09)
[2023-10-01] MEDS ORDERED: HOME MED LIST COMPLETE! XX SCH (23:20)
[2023-10-02] MEDS ORDERED: DEXTROSE 50% 50ML SYRINGE IV PRN (00:35)
[2023-10-02] MEDS ORDERED: MOM 30ML SUSPENSION UDC PO PRN (00:35)
[2023-10-02] MEDS ORDERED: GLUCOSE 4GM CHEW TABLET PO PRN (00:35)
[2023-10-02] MEDS ORDERED: guaiFENesin SYRUP 200MG 10ML UDC PO PRN (00:35)
[2023-10-02] MEDS ORDERED: MAALOX 30 ML SUSP *UDC PO PRN (00:35)
[2023-10-02] MEDS ORDERED: allopurinoL 100 MG TAB PO PRN (00:35)
[2023-10-02] MEDS ORDERED: ALBUTEROL 90 MCG/ACT 8GM HFA INHALER INH PRN (00:35)
[2023-10-02] MEDS ORDERED: GLUCAGON INJ 1MG VIAL SC PRN (00:35)
[2023-10-02] MEDS ORDERED: DOCUSATE SODIUM 100MG CAPSULE PO PRN (00:35)
[2023-10-02] MEDS ORDERED: METOPROLOL TART 25 MG TABLET PO ONE (01:00)
[2023-10-02 01:50] VITALS: BP 150/88; TEMP 97.7; O2SAT 94
[2023-10-02] MEDS ORDERED: POTASSIUM CHLORIDE 10% LIQ 20MEQ/15ML UDC PO ONE (02:00)
[2023-10-02] MEDS: APIXABAN 5 MG TAB (ELIQUIS) PO SCH ×2 (02:24→08:27)
[2023-10-02] MEDS: RAMELTEON 8 MG TAB (ROZEREM) PO SCH ×2 (02:24→20:54)
[2023-10-02] MEDS: QUEtiapine FUMARATE **XR** 200MG TABLET PO SCH ×2 (02:24→20:54)
[2023-10-02] MEDS: GABAPENTIN 100 MG CAP PO PRN ×2 (02:24→16:32)
[2023-10-02] MEDS: ANEXSIA, NORCO 7.5MG/325MG TABLET(HYDROCODONE/APAP) PO PRN ×2 (02:25→13:58)
[2023-10-02 05:27] VITALS: BP 137/87; TEMP 97.7; O2SAT 97
[2023-10-02] MEDS: INSULIN LISPRO (NovoLOG) PER UNIT SC SCH ×4 (07:10→20:46)
[2023-10-02 07:27] LABS: BASO % 0.6 % (0.0-1.0); EOS # 0.1 10^3/uL (0.0-0.5); EOS % 2.9 % (0.0-3.0); HEMATOCRIT 28.6 % (36.0-47.0); HEMOGLOBIN 8.2 g/dl (12.0-15.5); LYMPH # 0.8 10^3/uL (1.5-5.0); MEAN CORPUSCULAR HEMOGLOBIN 27.9 pg (27.0-33.0); MEAN CORPUSCULAR HGB CONC 28.7 g/dl (32.0-36.5); MEAN CORPUSCULAR VOLUME 97.3 fl (80.0-96.0); MONO # 0.3 10^3/uL (0.0-0.8); MONO % 9.4 % (2.0-8.0); NEUTROPHILS # 2.2 10^3/uL (1.5-8.5); NEUTROPHILS % 62.8 % (36.0-66.0); PLATELET COUNT, AUTOMATED 197 10^3/uL (150-450); RED BLOOD COUNT 2.94 10^6/uL (4.00-5.40); WHITE BLOOD COUNT 3.4 10^3/uL (4.0-10.0)
[2023-10-02] MEDS: ADVAIR HFA 115/21MCG INHALER INH SCH ×2 (07:35→19:08)
[2023-10-02 07:52] LABS: BLOOD UREA NITROGEN 13 MG/DL (9-23); CALCIUM LEVEL 7.7 MG/DL (8.3-10.6); CARBON DIOXIDE LEVEL 34 MMOL/L (20-31); CHLORIDE LEVEL 107 MMOL/L (98-107); CREATININE FOR GFR 0.81 MG/DL (0.55-1.30); GLOMERULAR FILTRATION RATE > 60.0 (>45); GLUCOSE, FASTING 89 MG/DL (74-106); MAGNESIUM LEVEL 1.6 MG/DL (1.8-2.4); POTASSIUM SERUM 3.9 MMOL/L (3.5-5.1); SODIUM LEVEL 147 MMOL/L (136-145)
[2023-10-02] MEDS: MIDODRINE 5 MG TAB PO SCH ×3 (08:00→16:34)
[2023-10-02] MEDS: MAG SULF 1GM/100ML (MAG RUN) 1 GM in IV 1 EA IV SCH ×2 (08:25→09:45)
[2023-10-02] MEDS: METOPROLOL TART 50 MG TAB PO SCH ×2 (08:26→20:50)
[2023-10-02] MEDS: ATORVASTATIN 20 MG TAB PO SCH (08:26)
[2023-10-02] MEDS: SERTRALINE HCL 25 MG TABLET PO SCH (08:27)
[2023-10-02] MEDS: FAMOTIDINE 20 MG TAB PO SCH (08:27)
[2023-10-02] MEDS: DIGOXIN 0.125 MG TAB PO SCH (08:27)
[2023-10-02 10:00] VITALS: BP 102/54; TEMP 97.7; O2SAT 98
[2023-10-02 11:16] LABS: BASO % 0.3 % (0.0-1.0); EOS # 0.1 10^3/uL (0.0-0.5); EOS % 3.2 % (0.0-3.0); HEMATOCRIT 29.9 % (36.0-47.0); HEMOGLOBIN 8.6 g/dl (12.0-15.5); LYMPH # 0.9 10^3/uL (1.5-5.0); LYMPH % 25.5 % (24.0-44.0); MEAN CORPUSCULAR HEMOGLOBIN 27.8 pg (27.0-33.0); MEAN CORPUSCULAR HGB CONC 28.8 g/dl (32.0-36.5); MEAN CORPUSCULAR VOLUME 96.8 fl (80.0-96.0); MONO # 0.3 10^3/uL (0.0-0.8); MONO % 8.9 % (2.0-8.0); NEUTROPHILS # 2.2 10^3/uL (1.5-8.5); NEUTROPHILS % 61.8 % (36.0-66.0); PLATELET COUNT, AUTOMATED 214 10^3/uL (150-450); RED BLOOD COUNT 3.09 10^6/uL (4.00-5.40); WHITE BLOOD COUNT 3.5 10^3/uL (4.0-10.0)
[2023-10-02 14:00] VITALS: BP 102/56; TEMP 97.5; O2SAT 98
[2023-10-02 16:01] LABS: CK-MB VALUE MASS 1.7 NG/ML (<3.6)
[2023-10-02 16:02] LABS: MB/CK RELATIVE INDEX 7.39 (< OR =4)
[2023-10-02] MEDS: ACETAMINOPHEN TAB 650MG DOSE (2X325MG) PO PRN ×2 (16:32→20:54)
[2023-10-02] MEDS ORDERED: INFLUENZA QUADRIVALENT PF VACCINE 0.5ML SYRINGE IM.IMMUN ONE (17:00)
[2023-10-02 17:03] LABS: CK-MB VALUE MASS 1.3 NG/ML (<3.6)
[2023-10-02 17:05] LABS: MB/CK RELATIVE INDEX 5.2 (< OR =4)
[2023-10-02 18:40] LABS: HEMATOCRIT 30.7 % (36.0-47.0); HEMOGLOBIN 8.8 g/dl (12.0-15.5)
[2023-10-02 21:00] VITALS: BP 118/71; TEMP 97.5; O2SAT 93
[2023-10-03 00:17] LABS: HEMATOCRIT 28.7 % (36.0-47.0); HEMOGLOBIN 8.2 g/dl (12.0-15.5)
[2023-10-03 01:23] VITALS: BP 104/76; TEMP 97.9; O2SAT 96
[2023-10-03] MEDS: ANEXSIA, NORCO 7.5MG/325MG TABLET(HYDROCODONE/APAP) PO PRN ×3 (02:31→23:28)
[2023-10-03] MEDS: GABAPENTIN 100 MG CAP PO PRN (02:31)
[2023-10-03] MEDS ORDERED: METOPROLOL TART 50 MG TAB PO ONE (03:00)
[2023-10-03 05:40] VITALS: BP 115/55; TEMP 97.3; O2SAT 96
[2023-10-03 05:59] LABS: BASO % 0.5 % (0.0-1.0); EOS # 0.1 10^3/uL (0.0-0.5); EOS % 2.6 % (0.0-3.0); HEMATOCRIT 30.3 % (36.0-47.0); HEMOGLOBIN 8.7 g/dl (12.0-15.5); LYMPH # 1.1 10^3/uL (1.5-5.0); LYMPH % 27.7 % (24.0-44.0); MEAN CORPUSCULAR HEMOGLOBIN 28.4 pg (27.0-33.0); MEAN CORPUSCULAR HGB CONC 28.7 g/dl (32.0-36.5); MONO # 0.4 10^3/uL (0.0-0.8); MONO % 10.6 % (2.0-8.0); NEUTROPHILS # 2.3 10^3/uL (1.5-8.5); NEUTROPHILS % 58.3 % (36.0-66.0); PLATELET COUNT, AUTOMATED 199 10^3/uL (150-450); RED BLOOD COUNT 3.06 10^6/uL (4.00-5.40); WHITE BLOOD COUNT 3.9 10^3/uL (4.0-10.0)
[2023-10-03 06:23] LABS: BLOOD UREA NITROGEN 18 MG/DL (9-23); CALCIUM LEVEL 8.2 MG/DL (8.3-10.6); CARBON DIOXIDE LEVEL 34 MMOL/L (20-31); CHLORIDE LEVEL 104 MMOL/L (98-107); CREATININE FOR GFR 0.87 MG/DL (0.55-1.30); GLOMERULAR FILTRATION RATE > 60.0 (>45); GLUCOSE, FASTING 82 MG/DL (74-106); MAGNESIUM LEVEL 1.8 MG/DL (1.8-2.4); POTASSIUM SERUM 4.2 MMOL/L (3.5-5.1); SODIUM LEVEL 145 MMOL/L (136-145)
[2023-10-03] MEDS: ADVAIR HFA 115/21MCG INHALER INH SCH ×2 (07:38→19:46)
[2023-10-03] MEDS: INSULIN LISPRO (NovoLOG) PER UNIT SC SCH ×4 (08:02→20:46)
[2023-10-03] MEDS: MIDODRINE 5 MG TAB PO SCH ×3 (09:07→16:44)
[2023-10-03] MEDS: DIGOXIN 0.125 MG TAB PO SCH (09:07)
[2023-10-03] MEDS: METOPROLOL TART 50 MG TAB PO SCH ×2 (09:07→21:13)
[2023-10-03] MEDS: ATORVASTATIN 20 MG TAB PO SCH (09:07)
[2023-10-03] MEDS: SERTRALINE HCL 25 MG TABLET PO SCH (09:07)
[2023-10-03] MEDS: FAMOTIDINE 20 MG TAB PO SCH (09:08)
[2023-10-03 10:00] VITALS: BP 106/70; TEMP 97.7; O2SAT 96
[2023-10-03 10:42] LABS: HEMATOCRIT 31.9 % (36.0-47.0); HEMOGLOBIN 9.1 g/dl (12.0-15.5)
[2023-10-03 14:53] LABS: ABG BASE EXCESS 6.2 (-2.0-2.0); ABG HCO3 32.7 MMOL/L (22.0-26.0); ABG O2 SATURATION 95.6 % (95.0-99.0); ABG PARTIAL PRESSURE CO2 58.2 mmHg (35.0-45.0); ABG PARTIAL PRESSURE O2 79.8 mmHg (75.0-100.0); ABG TOTAL CO2 34.5 MMOL/L (23.0-31.0); ABG pH (ARTERIAL) 7.367 UNITS (7.350-7.450)
[2023-10-03 15:25] LABS: BASO % 0.5 % (0.0-1.0); EOS # 0.1 10^3/uL (0.0-0.5); HEMATOCRIT 31.8 % (36.0-47.0); HEMOGLOBIN 9.1 g/dl (12.0-15.5); LYMPH % 22.7 % (24.0-44.0); MEAN CORPUSCULAR HEMOGLOBIN 28.3 pg (27.0-33.0); MEAN CORPUSCULAR HGB CONC 28.6 g/dl (32.0-36.5); MEAN CORPUSCULAR VOLUME 98.8 fl (80.0-96.0); MONO # 0.4 10^3/uL (0.0-0.8); MONO % 9.4 % (2.0-8.0); NEUTROPHILS # 2.8 10^3/uL (1.5-8.5); NEUTROPHILS % 64.2 % (36.0-66.0); PLATELET COUNT, AUTOMATED 216 10^3/uL (150-450); RED BLOOD COUNT 3.22 10^6/uL (4.00-5.40); WHITE BLOOD COUNT 4.4 10^3/uL (4.0-10.0)
[2023-10-03 15:46] LABS: ALBUMIN 2.8 G/DL (3.2-5.2); ALKALINE PHOSPHATASE 85 U/L (46-116); ALT/SGPT 13 U/L (7.0-40); AST/SGOT 21 U/L (<34); BLOOD UREA NITROGEN 17 MG/DL (9-23); CALCIUM LEVEL 8.1 MG/DL (8.3-10.6); CARBON DIOXIDE LEVEL 35 MMOL/L (20-31); CHLORIDE LEVEL 103 MMOL/L (98-107); CREATININE FOR GFR 0.85 MG/DL (0.55-1.30); GLOMERULAR FILTRATION RATE > 60.0 (>45); GLUCOSE, FASTING 61 MG/DL (74-106); POTASSIUM SERUM 4.1 MMOL/L (3.5-5.1); SODIUM LEVEL 143 MMOL/L (136-145); TOTAL PROTEIN 5.6 G/DL (5.7-8.2)
[2023-10-03 18:04] LABS: HEMATOCRIT 32.3 % (36.0-47.0); HEMOGLOBIN 9.3 g/dl (12.0-15.5)
[2023-10-03] MEDS: LACTULOSE 20GM/30ML SYRUP UDC PO SCH ×2 (19:20→23:27)
[2023-10-03] MEDS: RAMELTEON 8 MG TAB (ROZEREM) PO SCH (21:12)
[2023-10-03] MEDS: QUEtiapine FUMARATE **XR** 200MG TABLET PO SCH (21:12)
[2023-10-03 23:17] LABS: HEMATOCRIT 32.8 % (36.0-47.0); HEMOGLOBIN 9.3 g/dl (12.0-15.5)
[2023-10-04] MEDS: LACTULOSE 20GM/30ML SYRUP UDC PO SCH ×2 (05:20→12:07)
[2023-10-04 06:00] VITALS: BP 112/76; TEMP 97.7; O2SAT 95
[2023-10-04 06:12] LABS: BASO % 0.5 % (0.0-1.0); EOS # 0.1 10^3/uL (0.0-0.5); EOS % 2.8 % (0.0-3.0); HEMOGLOBIN 9.4 g/dl (12.0-15.5); LYMPH % 22.5 % (24.0-44.0); MEAN CORPUSCULAR HEMOGLOBIN 28.5 pg (27.0-33.0); MEAN CORPUSCULAR HGB CONC 29.4 g/dl (32.0-36.5); MONO # 0.5 10^3/uL (0.0-0.8); MONO % 11.1 % (2.0-8.0); NEUTROPHILS # 2.7 10^3/uL (1.5-8.5); NEUTROPHILS % 62.9 % (36.0-66.0); PLATELET COUNT, AUTOMATED 200 10^3/uL (150-450); WHITE BLOOD COUNT 4.3 10^3/uL (4.0-10.0)
[2023-10-04 06:35] LABS: BLOOD UREA NITROGEN 17 MG/DL (9-23); CARBON DIOXIDE LEVEL 32 MMOL/L (20-31); CHLORIDE LEVEL 101 MMOL/L (98-107); CREATININE FOR GFR 0.83 MG/DL (0.55-1.30); GLOMERULAR FILTRATION RATE > 60.0 (>45); GLUCOSE, FASTING 84 MG/DL (74-106); MAGNESIUM LEVEL 1.7 MG/DL (1.8-2.4); POTASSIUM SERUM 4.2 MMOL/L (3.5-5.1); SODIUM LEVEL 141 MMOL/L (136-145)
[2023-10-04] MEDS: ADVAIR HFA 115/21MCG INHALER INH SCH ×2 (07:30→19:35)
[2023-10-04] MEDS: INSULIN LISPRO (NovoLOG) PER UNIT SC SCH ×4 (07:30→20:29)
[2023-10-04] MEDS: MIDODRINE 5 MG TAB PO SCH ×3 (08:00→16:35)
[2023-10-04] MEDS ORDERED: MAG SULF 1GM/100ML (MAG RUN) 1 GM in IV 1 EA IV ONE (08:00)
[2023-10-04] MEDS ORDERED: MAGNESIUM OXIDE 400MG TAB (MAG-OX) PO ONE (08:15)
[2023-10-04 08:45] VITALS: BP 131/91
[2023-10-04] MEDS: DIGOXIN 0.125 MG TAB PO SCH (08:50)
[2023-10-04] MEDS: FAMOTIDINE 20 MG TAB PO SCH (08:50)
[2023-10-04] MEDS: ATORVASTATIN 20 MG TAB PO SCH (08:50)
[2023-10-04] MEDS: SERTRALINE HCL 25 MG TABLET PO SCH (08:51)
[2023-10-04] MEDS: METOPROLOL TART 50 MG TAB PO SCH ×2 (08:51→20:15)
[2023-10-04] MEDS: ACETAMINOPHEN TAB 650MG DOSE (2X325MG) PO PRN (16:35)
[2023-10-04] MEDS: QUEtiapine FUMARATE **XR** 200MG TABLET PO SCH (20:15)
[2023-10-04] MEDS: RAMELTEON 8 MG TAB (ROZEREM) PO SCH (20:16)
[2023-10-04] MEDS: ANEXSIA, NORCO 7.5MG/325MG TABLET(HYDROCODONE/APAP) PO PRN (21:28)
[2023-10-05 06:00] VITALS: BP 138/95; TEMP 97.7; O2SAT 97
[2023-10-05 06:04] LABS: BASO % 0.5 % (0.0-1.0); EOS # 0.1 10^3/uL (0.0-0.5); EOS % 1.9 % (0.0-3.0); HEMATOCRIT 30.2 % (36.0-47.0); HEMOGLOBIN 8.6 g/dl (12.0-15.5); LYMPH # 0.9 10^3/uL (1.5-5.0); LYMPH % 24.3 % (24.0-44.0); MEAN CORPUSCULAR HEMOGLOBIN 27.8 pg (27.0-33.0); MEAN CORPUSCULAR HGB CONC 28.5 g/dl (32.0-36.5); MEAN CORPUSCULAR VOLUME 97.7 fl (80.0-96.0); MONO # 0.4 10^3/uL (0.0-0.8); MONO % 11.4 % (2.0-8.0); NEUTROPHILS # 2.3 10^3/uL (1.5-8.5); NEUTROPHILS % 61.6 % (36.0-66.0); PLATELET COUNT, AUTOMATED 164 10^3/uL (150-450); RED BLOOD COUNT 3.09 10^6/uL (4.00-5.40); WHITE BLOOD COUNT 3.8 10^3/uL (4.0-10.0)
[2023-10-05 06:58] LABS: BLOOD UREA NITROGEN 15 MG/DL (9-23); CARBON DIOXIDE LEVEL 37 MMOL/L (20-31); CHLORIDE LEVEL 102 MMOL/L (98-107); CREATININE FOR GFR 0.96 MG/DL (0.55-1.30); GLOMERULAR FILTRATION RATE > 60.0 (>45); GLUCOSE, FASTING 87 MG/DL (74-106); MAGNESIUM LEVEL 1.8 MG/DL (1.8-2.4); POTASSIUM SERUM 4.1 MMOL/L (3.5-5.1); SODIUM LEVEL 143 MMOL/L (136-145)
[2023-10-05] MEDS: ADVAIR HFA 115/21MCG INHALER INH SCH ×2 (07:22→19:19)
[2023-10-05] MEDS: INSULIN LISPRO (NovoLOG) PER UNIT SC SCH ×4 (07:30→20:16)
[2023-10-05] MEDS: MIDODRINE 5 MG TAB PO SCH ×3 (09:13→16:56)
[2023-10-05] MEDS: FAMOTIDINE 20 MG TAB PO SCH (09:13)
[2023-10-05] MEDS: ATORVASTATIN 20 MG TAB PO SCH (09:13)
[2023-10-05] MEDS: SERTRALINE HCL 25 MG TABLET PO SCH (09:13)
[2023-10-05] MEDS: DIGOXIN 0.125 MG TAB PO SCH (09:13)
[2023-10-05] MEDS: METOPROLOL TART 50 MG TAB PO SCH ×2 (09:14→20:23)
[2023-10-05] MEDS: ANEXSIA, NORCO 7.5MG/325MG TABLET(HYDROCODONE/APAP) PO PRN ×2 (12:11→20:24)
[2023-10-05] MEDS: IPRATROPIUM 0.5MG/ALBUTEROL 2.5MG INH SOL UD 3ML (DUONEB) INH PRN (13:19)
[2023-10-05 16:57] VITALS: BP 138/85
[2023-10-05] MEDS: ACETAMINOPHEN TAB 650MG DOSE (2X325MG) PO PRN (17:02)
[2023-10-05 19:20] VITALS: O2SAT 96
[2023-10-05] MEDS: GABAPENTIN 100 MG CAP PO PRN (20:23)
[2023-10-05] MEDS: RAMELTEON 8 MG TAB (ROZEREM) PO SCH (20:23)
[2023-10-05] MEDS: QUEtiapine FUMARATE **XR** 200MG TABLET PO SCH (20:23)
[2023-10-06 05:48] VITALS: BP 116/66; TEMP 97.7; O2SAT 98
[2023-10-06 06:23] LABS: BASO % 0.5 % (0.0-1.0); EOS # 0.1 10^3/uL (0.0-0.5); EOS % 2.1 % (0.0-3.0); HEMATOCRIT 31.1 % (36.0-47.0); HEMOGLOBIN 8.9 g/dl (12.0-15.5); MEAN CORPUSCULAR HEMOGLOBIN 28.1 pg (27.0-33.0); MEAN CORPUSCULAR HGB CONC 28.6 g/dl (32.0-36.5); MEAN CORPUSCULAR VOLUME 98.1 fl (80.0-96.0); MONO # 0.4 10^3/uL (0.0-0.8); MONO % 9.5 % (2.0-8.0); NEUTROPHILS # 2.3 10^3/uL (1.5-8.5); NEUTROPHILS % 61.6 % (36.0-66.0); PLATELET COUNT, AUTOMATED 169 10^3/uL (150-450); RED BLOOD COUNT 3.17 10^6/uL (4.00-5.40); WHITE BLOOD COUNT 3.8 10^3/uL (4.0-10.0)
[2023-10-06 06:50] LABS: BLOOD UREA NITROGEN 14 MG/DL (9-23); CALCIUM LEVEL 7.9 MG/DL (8.3-10.6); CARBON DIOXIDE LEVEL 36 MMOL/L (20-31); CHLORIDE LEVEL 103 MMOL/L (98-107); CREATININE FOR GFR 0.89 MG/DL (0.55-1.30); GLOMERULAR FILTRATION RATE > 60.0 (>45); GLUCOSE, FASTING 88 MG/DL (74-106); MAGNESIUM LEVEL 1.8 MG/DL (1.8-2.4); POTASSIUM SERUM 4.2 MMOL/L (3.5-5.1); SODIUM LEVEL 145 MMOL/L (136-145)
[2023-10-06] MEDS: INSULIN LISPRO (NovoLOG) PER UNIT SC SCH ×4 (07:16→20:27)
[2023-10-06] MEDS: IPRATROPIUM 0.5MG/ALBUTEROL 2.5MG INH SOL UD 3ML (DUONEB) INH PRN ×2 (07:22→19:46)
[2023-10-06] MEDS: ADVAIR HFA 115/21MCG INHALER INH SCH ×2 (07:22→19:44)
[2023-10-06] MEDS: ATORVASTATIN 20 MG TAB PO SCH (08:39)
[2023-10-06] MEDS: SERTRALINE HCL 25 MG TABLET PO SCH (08:39)
[2023-10-06] MEDS: MIDODRINE 5 MG TAB PO SCH ×3 (08:40→17:53)
[2023-10-06] MEDS: DIGOXIN 0.125 MG TAB PO SCH (08:40)
[2023-10-06] MEDS: FAMOTIDINE 20 MG TAB PO SCH (08:40)
[2023-10-06] MEDS: METOPROLOL TART 50 MG TAB PO SCH ×2 (08:41→20:16)
[2023-10-06] MEDS: ANEXSIA, NORCO 7.5MG/325MG TABLET(HYDROCODONE/APAP) PO PRN (13:36)
[2023-10-06] MEDS: ACETAMINOPHEN TAB 650MG DOSE (2X325MG) PO PRN (17:54)
[2023-10-06] MEDS: RAMELTEON 8 MG TAB (ROZEREM) PO SCH (20:15)
[2023-10-06] MEDS: GABAPENTIN 100 MG CAP PO PRN (20:15)
[2023-10-06] MEDS: QUEtiapine FUMARATE **XR** 200MG TABLET PO SCH (20:15)
[2023-10-07] MEDS: ANEXSIA, NORCO 7.5MG/325MG TABLET(HYDROCODONE/APAP) PO PRN ×3 (00:51→17:02)
[2023-10-07 05:27] VITALS: BP 124/87; TEMP 98.1; O2SAT 98
[2023-10-07 06:12] LABS: BASO % 0.4 % (0.0-1.0); EOS # 0.1 10^3/uL (0.0-0.5); HEMATOCRIT 32.3 % (36.0-47.0); HEMOGLOBIN 9.2 g/dl (12.0-15.5); LYMPH # 1.3 10^3/uL (1.5-5.0); LYMPH % 27.7 % (24.0-44.0); MEAN CORPUSCULAR HGB CONC 28.5 g/dl (32.0-36.5); MEAN CORPUSCULAR VOLUME 98.5 fl (80.0-96.0); MONO # 0.5 10^3/uL (0.0-0.8); NEUTROPHILS # 2.9 10^3/uL (1.5-8.5); NEUTROPHILS % 60.5 % (36.0-66.0); PLATELET COUNT, AUTOMATED 164 10^3/uL (150-450); RED BLOOD COUNT 3.28 10^6/uL (4.00-5.40); WHITE BLOOD COUNT 4.8 10^3/uL (4.0-10.0)
[2023-10-07 06:45] LABS: BLOOD UREA NITROGEN 15 MG/DL (9-23); CALCIUM LEVEL 8.1 MG/DL (8.3-10.6); CARBON DIOXIDE LEVEL 35 MMOL/L (20-31); CHLORIDE LEVEL 104 MMOL/L (98-107); CREATININE FOR GFR 0.87 MG/DL (0.55-1.30); GLOMERULAR FILTRATION RATE > 60.0 (>45); GLUCOSE, FASTING 82 MG/DL (74-106); MAGNESIUM LEVEL 1.7 MG/DL (1.8-2.4); SODIUM LEVEL 144 MMOL/L (136-145)
[2023-10-07] MEDS: ADVAIR HFA 115/21MCG INHALER INH SCH ×2 (07:15→19:33)
[2023-10-07] MEDS: INSULIN LISPRO (NovoLOG) PER UNIT SC SCH ×4 (07:30→20:52)
[2023-10-07 08:00] VITALS: BP 134/92; TEMP 97.5; O2SAT 99
[2023-10-07] MEDS: FAMOTIDINE 20 MG TAB PO SCH (08:17)
[2023-10-07] MEDS: SERTRALINE HCL 25 MG TABLET PO SCH (08:17)
[2023-10-07] MEDS: DIGOXIN 0.125 MG TAB PO SCH (08:18)
[2023-10-07] MEDS: ATORVASTATIN 20 MG TAB PO SCH (08:19)
[2023-10-07] MEDS: METOPROLOL TART 50 MG TAB PO SCH ×2 (08:19→20:52)
[2023-10-07] MEDS: MIDODRINE 5 MG TAB PO SCH ×3 (08:21→17:01)
[2023-10-07 12:00] VITALS: BP 124/80; TEMP 97.6; O2SAT 98
[2023-10-07] MEDS: QUEtiapine FUMARATE **XR** 200MG TABLET PO SCH (20:51)
[2023-10-07] MEDS: RAMELTEON 8 MG TAB (ROZEREM) PO SCH (20:51)
[2023-10-07] MEDS: ACETAMINOPHEN TAB 650MG DOSE (2X325MG) PO PRN (21:53)
[2023-10-08 06:20] LABS: BASO % 0.4 % (0.0-1.0); EOS # 0.1 10^3/uL (0.0-0.5); EOS % 1.3 % (0.0-3.0); HEMATOCRIT 32.7 % (36.0-47.0); HEMOGLOBIN 9.5 g/dl (12.0-15.5); LYMPH % 21.3 % (24.0-44.0); MEAN CORPUSCULAR HEMOGLOBIN 28.4 pg (27.0-33.0); MEAN CORPUSCULAR HGB CONC 29.1 g/dl (32.0-36.5); MEAN CORPUSCULAR VOLUME 97.6 fl (80.0-96.0); MONO # 0.5 10^3/uL (0.0-0.8); MONO % 10.3 % (2.0-8.0); NEUTROPHILS # 3.1 10^3/uL (1.5-8.5); NEUTROPHILS % 66.5 % (36.0-66.0); PLATELET COUNT, AUTOMATED 183 10^3/uL (150-450); RED BLOOD COUNT 3.35 10^6/uL (4.00-5.40); WHITE BLOOD COUNT 4.6 10^3/uL (4.0-10.0)
[2023-10-08 06:28] LABS: BLOOD UREA NITROGEN 16 MG/DL (9-23); CALCIUM LEVEL 8.4 MG/DL (8.3-10.6); CARBON DIOXIDE LEVEL 39 MMOL/L (20-31); CHLORIDE LEVEL 102 MMOL/L (98-107); CREATININE FOR GFR 0.88 MG/DL (0.55-1.30); GLOMERULAR FILTRATION RATE > 60.0 (>45); GLUCOSE, FASTING 97 MG/DL (74-106); MAGNESIUM LEVEL 1.8 MG/DL (1.8-2.4); POTASSIUM SERUM 4.2 MMOL/L (3.5-5.1); SODIUM LEVEL 145 MMOL/L (136-145)
[2023-10-08] MEDS: ADVAIR HFA 115/21MCG INHALER INH SCH ×2 (07:06→19:18)
[2023-10-08] MEDS: INSULIN LISPRO (NovoLOG) PER UNIT SC SCH ×4 (07:16→21:00)
[2023-10-08] MEDS: MIDODRINE 5 MG TAB PO SCH ×3 (08:00→16:55)
[2023-10-08] MEDS: SERTRALINE HCL 25 MG TABLET PO SCH (08:49)
[2023-10-08] MEDS: ATORVASTATIN 20 MG TAB PO SCH (08:49)
[2023-10-08] MEDS: FAMOTIDINE 20 MG TAB PO SCH (08:50)
[2023-10-08] MEDS: METOPROLOL TART 50 MG TAB PO SCH ×2 (08:50→20:15)
[2023-10-08] MEDS: DIGOXIN 0.125 MG TAB PO SCH (08:50)
[2023-10-08] MEDS: ANEXSIA, NORCO 7.5MG/325MG TABLET(HYDROCODONE/APAP) PO PRN ×2 (08:50→16:56)
[2023-10-08 08:51] VITALS: BP 142/88
[2023-10-08] MEDS: GABAPENTIN 100 MG CAP PO PRN (10:37)
[2023-10-08] MEDS: ACETAMINOPHEN TAB 650MG DOSE (2X325MG) PO PRN (10:38)
[2023-10-08 12:00] VITALS: BP 130/84; O2SAT 99
[2023-10-08 16:00] VITALS: BP 123/83
[2023-10-08] MEDS: RAMELTEON 8 MG TAB (ROZEREM) PO SCH (20:14)
[2023-10-08] MEDS: QUEtiapine FUMARATE **XR** 200MG TABLET PO SCH (20:15)
[2023-10-08 20:30] VITALS: BP 123/82; TEMP 97.7; O2SAT 98
[2023-10-09] VITALS: BP 109/70; TEMP 97.7; O2SAT 90
[2023-10-09 04:00] VITALS: BP 100/66; TEMP 97.7; O2SAT 95
[2023-10-09 06:10] LABS: BASO % 0.7 % (0.0-1.0); EOS % 0.9 % (0.0-3.0); HEMOGLOBIN 8.6 g/dl (12.0-15.5); LYMPH % 23.4 % (24.0-44.0); MEAN CORPUSCULAR HEMOGLOBIN 28.5 pg (27.0-33.0); MEAN CORPUSCULAR HGB CONC 28.7 g/dl (32.0-36.5); MEAN CORPUSCULAR VOLUME 99.3 fl (80.0-96.0); MONO # 0.5 10^3/uL (0.0-0.8); MONO % 10.9 % (2.0-8.0); NEUTROPHILS # 2.8 10^3/uL (1.5-8.5); NEUTROPHILS % 63.6 % (36.0-66.0); PLATELET COUNT, AUTOMATED 174 10^3/uL (150-450); RED BLOOD COUNT 3.02 10^6/uL (4.00-5.40); WHITE BLOOD COUNT 4.4 10^3/uL (4.0-10.0)
[2023-10-09 06:32] LABS: BLOOD UREA NITROGEN 14 MG/DL (9-23); CALCIUM LEVEL 7.9 MG/DL (8.3-10.6); CARBON DIOXIDE LEVEL 38 MMOL/L (20-31); CHLORIDE LEVEL 101 MMOL/L (98-107); CREATININE FOR GFR 0.88 MG/DL (0.55-1.30); GLOMERULAR FILTRATION RATE > 60.0 (>45); GLUCOSE, FASTING 97 MG/DL (74-106); MAGNESIUM LEVEL 1.6 MG/DL (1.8-2.4); SODIUM LEVEL 143 MMOL/L (136-145)
[2023-10-09] MEDS: INSULIN LISPRO (NovoLOG) PER UNIT SC SCH ×4 (07:22→21:00)
[2023-10-09 08:00] VITALS: BP 110/73
[2023-10-09] MEDS: ADVAIR HFA 115/21MCG INHALER INH SCH ×2 (08:00→19:34)
[2023-10-09] MEDS: ATORVASTATIN 20 MG TAB PO SCH (09:45)
[2023-10-09] MEDS: FAMOTIDINE 20 MG TAB PO SCH (09:45)
[2023-10-09] MEDS: METOPROLOL TART 50 MG TAB PO SCH ×2 (09:45→20:18)
[2023-10-09] MEDS: DIGOXIN 0.125 MG TAB PO SCH (09:46)
[2023-10-09] MEDS: SERTRALINE HCL 25 MG TABLET PO SCH (09:46)
[2023-10-09] MEDS: MIDODRINE 5 MG TAB PO SCH ×3 (09:46→15:38)
[2023-10-09] MEDS: ANEXSIA, NORCO 7.5MG/325MG TABLET(HYDROCODONE/APAP) PO PRN ×2 (09:52→18:09)
[2023-10-09] MEDS: GABAPENTIN 100 MG CAP PO PRN ×2 (09:54→15:37)
[2023-10-09] MEDS: ACETAMINOPHEN TAB 650MG DOSE (2X325MG) PO PRN (15:38)
[2023-10-09] MEDS: MAGNESIUM OXIDE 400MG TAB (MAG-OX) PO SCH (20:17)
[2023-10-09] MEDS: QUEtiapine FUMARATE **XR** 200MG TABLET PO SCH (20:17)
[2023-10-09] MEDS: RAMELTEON 8 MG TAB (ROZEREM) PO SCH (20:17)
[2023-10-10 05:40] VITALS: BP 129/82; TEMP 98.2; O2SAT 92
[2023-10-10] MEDS: ANEXSIA, NORCO 7.5MG/325MG TABLET(HYDROCODONE/APAP) PO PRN ×2 (05:54→16:55)
[2023-10-10] MEDS: TIOTROPIUM INHALER/CAPSULE (SPIRIVA) INH SCH (07:27)
[2023-10-10] MEDS: ADVAIR HFA 115/21MCG INHALER INH SCH ×2 (07:27→20:12)
[2023-10-10] MEDS: INSULIN LISPRO (NovoLOG) PER UNIT SC SCH ×4 (09:06→20:56)
[2023-10-10] MEDS: METOPROLOL TART 50 MG TAB PO SCH ×2 (09:07→20:55)
[2023-10-10] MEDS: FAMOTIDINE 20 MG TAB PO SCH (09:07)
[2023-10-10] MEDS: MAGNESIUM OXIDE 400MG TAB (MAG-OX) PO SCH ×2 (09:07→20:55)
[2023-10-10] MEDS: MIDODRINE 5 MG TAB PO SCH ×3 (09:07→16:54)
[2023-10-10] MEDS: SERTRALINE HCL 25 MG TABLET PO SCH (09:07)
[2023-10-10] MEDS: APIXABAN 5 MG TAB (ELIQUIS) PO SCH ×2 (09:08→20:55)
[2023-10-10] MEDS: DIGOXIN 0.125 MG TAB PO SCH (09:08)
[2023-10-10] MEDS: ATORVASTATIN 20 MG TAB PO SCH (09:08)
[2023-10-10] MEDS: GABAPENTIN 100 MG CAP PO PRN ×2 (09:11→20:58)
[2023-10-10] MEDS: QUEtiapine FUMARATE **XR** 200MG TABLET PO SCH (20:55)
[2023-10-10] MEDS: RAMELTEON 8 MG TAB (ROZEREM) PO SCH (20:55)
[2023-10-10 21:35] VITALS: O2SAT 83
[2023-10-10 21:40] VITALS: O2SAT 92
[2023-10-11 05:39] VITALS: BP 114/63; TEMP 98.1; O2SAT 97
[2023-10-11] MEDS: TIOTROPIUM INHALER/CAPSULE (SPIRIVA) INH SCH (07:20)
[2023-10-11] MEDS: ADVAIR HFA 115/21MCG INHALER INH SCH ×2 (07:20→19:43)
[2023-10-11] MEDS: INSULIN LISPRO (NovoLOG) PER UNIT SC SCH ×4 (07:30→20:09)
[2023-10-11] MEDS: METOPROLOL TART 50 MG TAB PO SCH ×2 (08:35→20:01)
[2023-10-11] MEDS: MIDODRINE 5 MG TAB PO SCH ×3 (08:35→16:29)
[2023-10-11] MEDS: FAMOTIDINE 20 MG TAB PO SCH (08:35)
[2023-10-11] MEDS: DIGOXIN 0.125 MG TAB PO SCH (08:35)
[2023-10-11] MEDS: SERTRALINE HCL 25 MG TABLET PO SCH (08:35)
[2023-10-11] MEDS: ATORVASTATIN 20 MG TAB PO SCH (08:35)
[2023-10-11] MEDS: APIXABAN 5 MG TAB (ELIQUIS) PO SCH ×2 (08:35→20:01)
[2023-10-11] MEDS: MAGNESIUM OXIDE 400MG TAB (MAG-OX) PO SCH ×2 (08:36→20:01)
[2023-10-11] MEDS: ANEXSIA, NORCO 7.5MG/325MG TABLET(HYDROCODONE/APAP) PO PRN ×2 (08:36→16:30)
[2023-10-11 09:56] VITALS: O2SAT 95
[2023-10-11] MEDS: ACETAMINOPHEN TAB 650MG DOSE (2X325MG) PO PRN (12:03)
[2023-10-11 12:04] VITALS: BP 99/62
[2023-10-11 16:30] VITALS: BP 116/72
[2023-10-11] MEDS: QUEtiapine FUMARATE **XR** 200MG TABLET PO SCH (20:00)
[2023-10-11] MEDS: RAMELTEON 8 MG TAB (ROZEREM) PO SCH (20:01)
[2023-10-11] MEDS: GABAPENTIN 100 MG CAP PO PRN (20:02)
[2023-10-11 21:40] VITALS: O2SAT 80
[2023-10-11 21:45] VITALS: O2SAT 88
[2023-10-12 04:45] VITALS: O2SAT 96
[2023-10-12 05:10] VITALS: BP 117/73; TEMP 97.7; O2SAT 93
[2023-10-12 05:27] VITALS: O2SAT 99
[2023-10-12] MEDS: TIOTROPIUM INHALER/CAPSULE (SPIRIVA) INH SCH (07:27)
[2023-10-12] MEDS: ADVAIR HFA 115/21MCG INHALER INH SCH ×2 (07:27→19:09)
[2023-10-12] MEDS: INSULIN LISPRO (NovoLOG) PER UNIT SC SCH ×4 (07:30→20:06)
[2023-10-12] MEDS: METOPROLOL TART 50 MG TAB PO SCH ×2 (08:54→20:22)
[2023-10-12] MEDS: MIDODRINE 5 MG TAB PO SCH ×3 (08:55→15:51)
[2023-10-12] MEDS: ATORVASTATIN 20 MG TAB PO SCH (08:55)
[2023-10-12] MEDS: MAGNESIUM OXIDE 400MG TAB (MAG-OX) PO SCH ×2 (08:55→20:22)
[2023-10-12] MEDS: DIGOXIN 0.125 MG TAB PO SCH (08:57)
[2023-10-12] MEDS: SERTRALINE HCL 25 MG TABLET PO SCH (08:57)
[2023-10-12] MEDS: FAMOTIDINE 20 MG TAB PO SCH (08:58)
[2023-10-12] MEDS: APIXABAN 5 MG TAB (ELIQUIS) PO SCH ×2 (08:58→20:22)
[2023-10-12] MEDS: ANEXSIA, NORCO 7.5MG/325MG TABLET(HYDROCODONE/APAP) PO PRN ×3 (09:01→22:30)
[2023-10-12] MEDS: QUEtiapine FUMARATE **XR** 200MG TABLET PO SCH (20:21)
[2023-10-12] MEDS: ACETAMINOPHEN TAB 650MG DOSE (2X325MG) PO PRN (20:22)
[2023-10-12] MEDS: RAMELTEON 8 MG TAB (ROZEREM) PO SCH (20:22)
[2023-10-12 22:45] VITALS: O2SAT 95
[2023-10-12] MEDS: IPRATROPIUM 0.5MG/ALBUTEROL 2.5MG INH SOL UD 3ML (DUONEB) INH PRN (23:04)
[2023-10-13 05:34] VITALS: BP 112/75; TEMP 97.5; O2SAT 94
[2023-10-13] MEDS: TIOTROPIUM INHALER/CAPSULE (SPIRIVA) INH SCH (07:24)
[2023-10-13] MEDS: ADVAIR HFA 115/21MCG INHALER INH SCH (07:25)
[2023-10-13] MEDS: INSULIN LISPRO (NovoLOG) PER UNIT SC SCH ×2 (07:30→12:25)
[2023-10-13] MEDS: SERTRALINE HCL 25 MG TABLET PO SCH (07:49)
[2023-10-13] MEDS: MAGNESIUM OXIDE 400MG TAB (MAG-OX) PO SCH (07:49)
[2023-10-13] MEDS: DIGOXIN 0.125 MG TAB PO SCH (07:50)
[2023-10-13] MEDS: ATORVASTATIN 20 MG TAB PO SCH (07:50)
[2023-10-13 07:51] VITALS: BP 112/75
[2023-10-13] MEDS: METOPROLOL TART 50 MG TAB PO SCH (07:51)
[2023-10-13] MEDS: MIDODRINE 5 MG TAB PO SCH ×3 (07:51→15:23)
[2023-10-13] MEDS: APIXABAN 5 MG TAB (ELIQUIS) PO SCH (07:51)
[2023-10-13 07:52] VITALS: O2SAT 98
[2023-10-13] MEDS: ANEXSIA, NORCO 7.5MG/325MG TABLET(HYDROCODONE/APAP) PO PRN ×2 (07:52→15:23)
[2023-10-13] MEDS: FAMOTIDINE 20 MG TAB PO SCH (07:53)
[2023-10-13 12:28] VITALS: BP 100/62
[2023-10-13 13:06] VITALS: O2SAT 94
[2023-10-13] MEDS ORDERED: MAGN400T2 PO (13:49)
== END 2023-10-13 16:34 | disposition home health service (06) ==
LOC: M ED 16:35 → M ED INP 23:43 → INTOOBSV 23:43 → M MSPAV 10-02 01:31
PROVIDERS: ADMIT Family Medicine; ATTEND Internal Medicine
DX: S30.1XXA Contusion of abdominal wall, initial encounter (principal); J44.9 Chronic obstructive pulmonary disease, unspecified; J96.11 Chronic respiratory failure with hypoxia; Z99.81 Dependence on supplemental oxygen; R53.1 Weakness; I48.91 Unspecified atrial fibrillation; G47.33 Obstructive sleep apnea (adult) (pediatric); E11.9 Type 2 diabetes mellitus without complications; I10 Essential (primary) hypertension; E78.5 Hyperlipidemia, unspecified; I50.30 Unspecified diastolic (congestive) heart failure; F17.218 Nicotine dependence, cigarettes, with other nicotine-induced disorders; R60.0 Localized edema; K21.9 Gastro-esophageal reflux disease without esophagitis; F41.9 Anxiety disorder, unspecified; F32.A Depression, unspecified; M10.9 Gout, unspecified; Z79.01 Long term (current) use of anticoagulants; Z79.899 Other long term (current) drug therapy; E87.6 Hypokalemia

== ENCOUNTER 2023-10-15 21:49 | Inpatient (IN) | payer OTHER ==
[~2023-10-15] VITALS: Ht 167.6 cm; Wt 132.7 kg
[~2023-10-15 21:49] MED LIST changes: +TREL1AER PO
[2023-10-15 22:53] LABS: VENOUS BASE EXCESS 5.6 (-2.0-2.0); VENOUS HCO3 33.4 MMOL/L (23.0-27.0); VENOUS O2 SATURATION 73.7 % (60.0-80.0); VENOUS PARTIAL PRESSURE CO2 66.7 mmHg (38.0-50.0); VENOUS PARTIAL PRESSURE O2 45.2 mmHg (30.0-50.0); VENOUS PH 7.318 UNITS (7.330-7.430); VENOUS STANDARD HCO3 29.1 MMOL/L; VENOUS TOTAL CO2 35.5 MMOL/L (24.0-28.0)
[2023-10-15] MEDS ORDERED: NS 500 ML IV ONE (22:55)
[2023-10-15 22:59] LABS: BASO % 0.4 % (0.0-1.0); EOS % 0.3 % (0.0-3.0); HEMATOCRIT 33.5 % (36.0-47.0); HEMOGLOBIN 9.9 g/dl (12.0-15.5); LYMPH # 0.9 10^3/uL (1.5-5.0); LYMPH % 12.2 % (24.0-44.0); MEAN CORPUSCULAR HEMOGLOBIN 28.4 pg (27.0-33.0); MEAN CORPUSCULAR HGB CONC 29.6 g/dl (32.0-36.5); MEAN CORPUSCULAR VOLUME 96.3 fl (80.0-96.0); MONO # 0.6 10^3/uL (0.0-0.8); MONO % 7.9 % (2.0-8.0); NEUTROPHILS % 78.8 % (36.0-66.0); PLATELET COUNT, AUTOMATED 179 10^3/uL (150-450); RED BLOOD COUNT 3.48 10^6/uL (4.00-5.40); WHITE BLOOD COUNT 7.6 10^3/uL (4.0-10.0)
[2023-10-15 23:22] LABS: ETHYL ALCOHOL (ETHANOL) 0.009 % (0.000-0.010)
[2023-10-15 23:23] LABS: CPK CREATINE PHOSPHOKINASE 54 U/L (34-145); DIGOXIN LEVEL 0.5 NG/ML (0.8-2.0)
[2023-10-15 23:24] LABS: ALBUMIN 3.1 G/DL (3.2-5.2); ALKALINE PHOSPHATASE 116 U/L (46-116); ALT/SGPT 23 U/L (7.0-40); AST/SGOT 50 U/L (<34); BILIRUBIN,DIRECT 0.9 MG/DL (<0.4); BILIRUBIN,TOTAL 1.4 MG/DL (0.3-1.2); BLOOD UREA NITROGEN 23 MG/DL (9-23); CALCIUM LEVEL 8.3 MG/DL (8.3-10.6); CARBON DIOXIDE LEVEL 37 MMOL/L (20-31); CHLORIDE LEVEL 99 MMOL/L (98-107); CREATININE FOR GFR 0.93 MG/DL (0.55-1.30); GLOMERULAR FILTRATION RATE > 60.0 (>45); GLUCOSE, FASTING 117 MG/DL (74-106); SALICYLATE LEVEL < 3.0 MG/DL (<30); SODIUM LEVEL 141 MMOL/L (136-145)
[2023-10-15 23:27] LABS: CK-MB VALUE MASS 1.1 NG/ML (<3.6); MB/CK RELATIVE INDEX 2.03 (< OR =4); OSMOLALITY SERUM 303 MOSM/KG (280-301)
[2023-10-15 23:29] LABS: RSV AMPLIFICATION NEGATIVE (NEGATIVE)
[2023-10-15 23:31] LABS: THYROID STIMULATING HORMONE 7.716 uIU/ML (0.55-4.78)
[2023-10-15 23:45] LABS: ABG BASE EXCESS 4.8 (-2.0-2.0); ABG HCO3 31.4 MMOL/L (22.0-26.0); ABG O2 SATURATION 94.3 % (95.0-99.0); ABG PARTIAL PRESSURE CO2 56.7 mmHg (35.0-45.0); ABG PARTIAL PRESSURE O2 77.8 mmHg (75.0-100.0); ABG STANDARD HCO3 28.7 MMOL/L. (22.0-26.0); ABG TOTAL CO2 33.1 MMOL/L (23.0-31.0); ABG pH (ARTERIAL) 7.361 UNITS (7.350-7.450)
[2023-10-15] MEDS ORDERED: ISOVUE-370 76% 100ML VIAL As Ordered ONE (23:45)
[2023-10-15 23:57] LABS: AMPHETAMINES LEVEL URINE NEGATIVE (NEGATIVE); BARBITURATES URINE NEGATIVE (NEGATIVE); BENZODIAZEPINES URINE NEGATIVE (NEGATIVE); COCAINE METABOLITE URINE NEGATIVE (NEGATIVE); METHADONE URINE NEGATIVE (NEGATIVE)
[2023-10-15 23:58] LABS: CANNABINOIDS URINE NEGATIVE (NEGATIVE); PHENCYCLIDINE URINE NEGATIVE (NEGATIVE)
[2023-10-16] VITALS (32 sets, daily range): BP systolic 121–178; BP diastolic 72–114; TEMP 97–98.4; O2SAT 88–100
[2023-10-16 00:01] LABS: OPIATES URINE POSITIVE (NEGATIVE)
[2023-10-16 01:35] LABS: CK-MB VALUE MASS 1.3 NG/ML (<3.6)
[2023-10-16 01:37] LABS: MB/CK RELATIVE INDEX 2.32 (< OR =4)
[2023-10-16 01:59] LABS: FREE T4 0.72 NG/DL (0.89-1.76)
[2023-10-16] MEDS ORDERED: NS 500 ML IV ONE (03:15)
[2023-10-16] MEDS ORDERED: NS 1,000 ML IV SCH (03:15)
[2023-10-16] MEDS ORDERED: ALBUTEROL SULFATE 2.5MG/0.5ML INH NEB SOLN NEB PRN (03:15)
[2023-10-16] MEDS: cefTRIAXone SOD 1 GM in D5W MINI-BAG PLUS 50 ML IV SCH (04:37)
[2023-10-16] MEDS: IPRATROPIUM 0.5MG/ALBUTEROL 2.5MG INH SOL UD 3ML (DUONEB) NEB SCH ×4 (04:47→20:28)
[2023-10-16] MEDS: LEVOTHYROXINE 100MCG (0.1MG) 5ML SDV PF (SOLUTION FORM) IV SCH (05:22)
[2023-10-16] MEDS ORDERED: GLUCAGON INJ 1MG VIAL SC PRN (05:35)
[2023-10-16] MEDS ORDERED: GLUCOSE 4GM CHEW TABLET PO PRN (05:35)
[2023-10-16] MEDS ORDERED: DEXTROSE 50% 50ML SYRINGE IV PRN (05:35)
[2023-10-16] MEDS ORDERED: methylPREDNISolone 40MG 1ML VIAL IV ONE (06:00)
[2023-10-16] MEDS: INSULIN LISPRO (NovoLOG) PER UNIT SC SCH ×4 (06:00→20:09)
[2023-10-16 06:20] LABS: ABG pH (ARTERIAL) 7.362 UNITS (7.350-7.450)
[2023-10-16 06:21] LABS: ABG BASE EXCESS 9.1 (-2.0-2.0); ABG HCO3 36.2 MMOL/L (22.0-26.0); ABG O2 SATURATION 93.2 % (95.0-99.0); ABG PARTIAL PRESSURE O2 72.9 mmHg (75.0-100.0); ABG STANDARD HCO3 32.7 MMOL/L. (22.0-26.0); ABG TOTAL CO2 38.2 MMOL/L (23.0-31.0)
[2023-10-16 06:25] LABS: ABG PARTIAL PRESSURE CO2 65.2 mmHg (35.0-45.0)
[2023-10-16 08:34] LABS: BLOOD UREA NITROGEN 22 MG/DL (9-23); CALCIUM LEVEL 8.1 MG/DL (8.3-10.6); CARBON DIOXIDE LEVEL 37 MMOL/L (20-31); CHLORIDE LEVEL 101 MMOL/L (98-107); CREATININE FOR GFR 0.89 MG/DL (0.55-1.30); GLOMERULAR FILTRATION RATE > 60.0 (>45); GLUCOSE, FASTING 97 MG/DL (74-106); POTASSIUM SERUM 3.9 MMOL/L (3.5-5.1); SODIUM LEVEL 143 MMOL/L (136-145)
[2023-10-16] MEDS: PANTOPRAZOLE 40MG VIAL IV SCH (10:13)
[2023-10-16] MEDS ORDERED: MED REC IN PROGRESS XX SCH (10:30)
[2023-10-16] MEDS ORDERED: HOME MED LIST COMPLETE! XX SCH (11:00)
[2023-10-16] MEDS ORDERED: methylPREDNISolone 40MG 1ML VIAL IV SCH (12:00)
[2023-10-16 12:45] LABS: VENOUS BASE EXCESS 5.8 (-2.0-2.0); VENOUS HCO3 32.9 MMOL/L (23.0-27.0); VENOUS O2 SATURATION 98.2 % (60.0-80.0); VENOUS PARTIAL PRESSURE CO2 61.2 mmHg (38.0-50.0); VENOUS PARTIAL PRESSURE O2 126.2 mmHg (30.0-50.0); VENOUS PH 7.348 UNITS (7.330-7.430); VENOUS STANDARD HCO3 29.7 MMOL/L; VENOUS TOTAL CO2 34.8 MMOL/L (24.0-28.0)
[2023-10-16] MEDS: APIXABAN 5 MG TAB (ELIQUIS) PO SCH ×2 (13:25→20:17)
[2023-10-16] MEDS: DIGOXIN 0.125 MG TAB PO SCH (14:50)
[2023-10-16] MEDS: METOPROLOL TART 50 MG TAB PO SCH ×2 (14:52→20:17)
[2023-10-16] MEDS ORDERED: ALPRAZolam 0.5 MG TAB PO ONE (17:45)
[2023-10-16] MEDS: MAGNESIUM OXIDE 400MG TAB (MAG-OX) PO SCH (20:17)
[2023-10-16] MEDS: RAMELTEON 8 MG TAB (ROZEREM) PO SCH (20:17)
[2023-10-16] MEDS ORDERED: ACETAMINOPHEN 500 MG TAB PO ONE (20:55)
[2023-10-16] MEDS: GABAPENTIN 100 MG CAP PO PRN (22:24)
[2023-10-17] VITALS (15 sets, daily range): BP systolic 121–144; BP diastolic 61–94; TEMP 97.4–98.8; O2SAT 89–99
[2023-10-17] MEDS: IPRATROPIUM 0.5MG/ALBUTEROL 2.5MG INH SOL UD 3ML (DUONEB) NEB SCH ×4 (00:38→20:11)
[2023-10-17] MEDS: ANALGESIC BALM CRM 3OZ TOP SCH ×3 (01:41→20:05)
[2023-10-17] MEDS: cefTRIAXone SOD 1 GM in D5W MINI-BAG PLUS 50 ML IV SCH (03:34)
[2023-10-17] MEDS ORDERED: KETOROLAC 30 MG/ML 1ML VIAL IV ONE ×2 (04:00→23:00)
[2023-10-17 04:56] LABS: HEMATOCRIT 31.7 % (36.0-47.0); HEMOGLOBIN 9.2 g/dl (12.0-15.5); MEAN CORPUSCULAR VOLUME 96.4 fl (80.0-96.0); PLATELET COUNT, AUTOMATED 166 10^3/uL (150-450); RED BLOOD COUNT 3.29 10^6/uL (4.00-5.40); WHITE BLOOD COUNT 5.8 10^3/uL (4.0-10.0)
[2023-10-17] MEDS: LEVOTHYROXINE 100MCG (0.1MG) 5ML SDV PF (SOLUTION FORM) IV SCH (06:18)
[2023-10-17 07:43] LABS: ABG BASE EXCESS 5.4 (-2.0-2.0); ABG HCO3 32.2 MMOL/L (22.0-26.0); ABG O2 SATURATION 96.7 % (95.0-99.0); ABG PARTIAL PRESSURE CO2 59.3 mmHg (35.0-45.0); ABG PARTIAL PRESSURE O2 95.6 mmHg (75.0-100.0); ABG STANDARD HCO3 29.4 MMOL/L. (22.0-26.0); ABG pH (ARTERIAL) 7.353 UNITS (7.350-7.450)
[2023-10-17] MEDS: ATORVASTATIN 20 MG TAB PO SCH (08:49)
[2023-10-17] MEDS: APIXABAN 5 MG TAB (ELIQUIS) PO SCH ×2 (08:49→20:04)
[2023-10-17] MEDS: MAGNESIUM OXIDE 400MG TAB (MAG-OX) PO SCH ×2 (08:49→20:04)
[2023-10-17] MEDS: INSULIN LISPRO (NovoLOG) PER UNIT SC SCH ×4 (08:49→20:05)
[2023-10-17] MEDS: METOPROLOL TART 50 MG TAB PO SCH ×2 (08:50→20:04)
[2023-10-17] MEDS: DIGOXIN 0.125 MG TAB PO SCH (08:50)
[2023-10-17] MEDS: predniSONE 10MG TAB PO SCH (08:50)
[2023-10-17] MEDS: PANTOPRAZOLE 40MG VIAL IV SCH (08:50)
[2023-10-17] MEDS: FAMOTIDINE 20 MG TAB PO SCH (08:53)
[2023-10-17] MEDS: SERTRALINE HCL 25 MG TABLET PO SCH (11:48)
[2023-10-17] MEDS: NORCO, ANEXSIA 5/325MG TABLET (HYDROcodone/ACETAMINOPHEN) PO SCH (11:49)
[2023-10-17] MEDS: QUEtiapine FUMARATE **XR** 200MG TABLET PO SCH (20:04)
[2023-10-17] MEDS: CEFDINIR 300 MG CAP (OMNICEF) PO SCH (20:04)
[2023-10-17] MEDS: RAMELTEON 8 MG TAB (ROZEREM) PO SCH (20:04)
[2023-10-17] MEDS: GABAPENTIN 100 MG CAP PO PRN (20:04)
[2023-10-18] MEDS: IPRATROPIUM 0.5MG/ALBUTEROL 2.5MG INH SOL UD 3ML (DUONEB) NEB SCH ×4 (02:00→19:02)
[2023-10-18 05:19] LABS: HEMATOCRIT 30.6 % (36.0-47.0); HEMOGLOBIN 8.7 g/dl (12.0-15.5); MEAN CORPUSCULAR HEMOGLOBIN 28.2 pg (27.0-33.0); MEAN CORPUSCULAR HGB CONC 28.4 g/dl (32.0-36.5); MEAN CORPUSCULAR VOLUME 99.4 fl (80.0-96.0); PLATELET COUNT, AUTOMATED 149 10^3/uL (150-450); RED BLOOD COUNT 3.08 10^6/uL (4.00-5.40); WHITE BLOOD COUNT 6.9 10^3/uL (4.0-10.0)
[2023-10-18] MEDS: LEVOTHYROXINE 50MCG TABLET (0.05MG) PO SCH (06:36)
[2023-10-18 07:35] VITALS: BP 129/84; TEMP 97.4
[2023-10-18] MEDS: PANTOPRAZOLE 40MG VIAL IV SCH (08:42)
[2023-10-18] MEDS: METOPROLOL TART 50 MG TAB PO SCH ×2 (08:42→20:25)
[2023-10-18] MEDS: SERTRALINE HCL 25 MG TABLET PO SCH (08:42)
[2023-10-18] MEDS: ATORVASTATIN 20 MG TAB PO SCH (08:42)
[2023-10-18] MEDS: DIGOXIN 0.125 MG TAB PO SCH (08:44)
[2023-10-18] MEDS: predniSONE 10MG TAB PO SCH (08:44)
[2023-10-18] MEDS: FAMOTIDINE 20 MG TAB PO SCH (08:44)
[2023-10-18] MEDS: CEFDINIR 300 MG CAP (OMNICEF) PO SCH ×2 (08:44→20:25)
[2023-10-18] MEDS: MAGNESIUM OXIDE 400MG TAB (MAG-OX) PO SCH ×2 (08:44→20:25)
[2023-10-18] MEDS: APIXABAN 5 MG TAB (ELIQUIS) PO SCH ×2 (08:44→20:25)
[2023-10-18] MEDS: INSULIN LISPRO (NovoLOG) PER UNIT SC SCH ×4 (08:45→20:22)
[2023-10-18] MEDS: ANALGESIC BALM CRM 3OZ TOP SCH ×2 (08:48→20:25)
[2023-10-18] MEDS ORDERED: SERTRALINE HCL 50 MG TAB PO SCH (09:00)
[2023-10-18] MEDS: NORCO, ANEXSIA 5/325MG TABLET (HYDROcodone/ACETAMINOPHEN) PO SCH (14:03)
[2023-10-18] MEDS: GABAPENTIN 100 MG CAP PO PRN (18:00)
[2023-10-18 20:00] VITALS: BP 135/89; TEMP 97.3; O2SAT 95
[2023-10-18] MEDS: RAMELTEON 8 MG TAB (ROZEREM) PO SCH (20:25)
[2023-10-18] MEDS: QUEtiapine FUMARATE **XR** 200MG TABLET PO SCH (20:25)
[2023-10-19] MEDS: IPRATROPIUM 0.5MG/ALBUTEROL 2.5MG INH SOL UD 3ML (DUONEB) NEB SCH ×4 (02:00→19:31)
[2023-10-19 05:26] LABS: HEMATOCRIT 33.2 % (36.0-47.0); HEMOGLOBIN 9.4 g/dl (12.0-15.5); MEAN CORPUSCULAR HGB CONC 28.3 g/dl (32.0-36.5); MEAN CORPUSCULAR VOLUME 98.8 fl (80.0-96.0); PLATELET COUNT, AUTOMATED 135 10^3/uL (150-450); RED BLOOD COUNT 3.36 10^6/uL (4.00-5.40); WHITE BLOOD COUNT 6.7 10^3/uL (4.0-10.0)
[2023-10-19] MEDS: LEVOTHYROXINE 50MCG TABLET (0.05MG) PO SCH (06:06)
[2023-10-19] MEDS: INSULIN LISPRO (NovoLOG) PER UNIT SC SCH ×4 (08:09→19:59)
[2023-10-19] MEDS: GABAPENTIN 100 MG CAP PO PRN ×2 (08:09→20:04)
[2023-10-19] MEDS: PANTOPRAZOLE 40MG VIAL IV SCH (08:09)
[2023-10-19] MEDS: SERTRALINE HCL 25 MG TABLET PO SCH (08:10)
[2023-10-19] MEDS: METOPROLOL TART 50 MG TAB PO SCH ×2 (08:11→20:05)
[2023-10-19] MEDS: FAMOTIDINE 20 MG TAB PO SCH (08:11)
[2023-10-19] MEDS: predniSONE 10MG TAB PO SCH (08:12)
[2023-10-19] MEDS: DIGOXIN 0.125 MG TAB PO SCH (08:12)
[2023-10-19] MEDS: ATORVASTATIN 20 MG TAB PO SCH (08:12)
[2023-10-19] MEDS: MAGNESIUM OXIDE 400MG TAB (MAG-OX) PO SCH ×2 (08:13→20:04)
[2023-10-19] MEDS: APIXABAN 5 MG TAB (ELIQUIS) PO SCH ×2 (08:13→20:04)
[2023-10-19] MEDS: CEFDINIR 300 MG CAP (OMNICEF) PO SCH ×2 (08:13→20:04)
[2023-10-19 08:21] VITALS: BP 116/69; TEMP 98; O2SAT 95
[2023-10-19] MEDS: ANALGESIC BALM CRM 3OZ TOP SCH ×2 (09:28→20:04)
[2023-10-19 10:15] VITALS: BP 154/98; TEMP 98.1; O2SAT 97
[2023-10-19] MEDS: NORCO, ANEXSIA 5/325MG TABLET (HYDROcodone/ACETAMINOPHEN) PO SCH (11:48)
[2023-10-19] MEDS: RAMELTEON 8 MG TAB (ROZEREM) PO SCH (20:04)
[2023-10-19] MEDS: QUEtiapine FUMARATE **XR** 200MG TABLET PO SCH (20:04)
[2023-10-19] MEDS: ACETAMINOPHEN TAB 650MG DOSE (2X325MG) PO PRN (20:48)
[2023-10-20] VITALS (9 sets, daily range): BP systolic 144–152; BP diastolic 78–99; TEMP 97.5; O2SAT 82–98
[2023-10-20] MEDS ORDERED: KETOROLAC 30 MG/ML 1ML VIAL IV ONE
[2023-10-20] MEDS: IPRATROPIUM 0.5MG/ALBUTEROL 2.5MG INH SOL UD 3ML (DUONEB) NEB SCH ×4 (00:50→20:12)
[2023-10-20] MEDS: LEVOTHYROXINE 50MCG TABLET (0.05MG) PO SCH (05:29)
[2023-10-20] MEDS: PANTOPRAZOLE 40MG VIAL IV SCH (08:15)
[2023-10-20] MEDS: CEFDINIR 300 MG CAP (OMNICEF) PO SCH ×2 (08:16→20:52)
[2023-10-20] MEDS: INSULIN LISPRO (NovoLOG) PER UNIT SC SCH ×4 (08:16→20:58)
[2023-10-20] MEDS: MAGNESIUM OXIDE 400MG TAB (MAG-OX) PO SCH ×2 (08:16→20:52)
[2023-10-20] MEDS: ATORVASTATIN 20 MG TAB PO SCH (08:16)
[2023-10-20] MEDS: predniSONE 10MG TAB PO SCH (08:16)
[2023-10-20] MEDS: METOPROLOL TART 50 MG TAB PO SCH ×2 (08:17→20:51)
[2023-10-20] MEDS: APIXABAN 5 MG TAB (ELIQUIS) PO SCH ×2 (08:18→20:52)
[2023-10-20] MEDS: SERTRALINE HCL 25 MG TABLET PO SCH (08:18)
[2023-10-20] MEDS: DIGOXIN 0.125 MG TAB PO SCH (08:18)
[2023-10-20] MEDS: FAMOTIDINE 20 MG TAB PO SCH (08:19)
[2023-10-20] MEDS: ANALGESIC BALM CRM 3OZ TOP SCH ×2 (08:19→20:58)
[2023-10-20] MEDS ORDERED: predniSONE 10MG TAB PO ONE (11:00)
[2023-10-20] MEDS: NORCO, ANEXSIA 5/325MG TABLET (HYDROcodone/ACETAMINOPHEN) PO SCH (11:06)
[2023-10-20] MEDS: SYMBICORT 160/4.5MCG INHALER 6GM INH SCH ×2 (13:09→20:14)
[2023-10-20] MEDS: TIOTROPIUM INHALER/CAPSULE (SPIRIVA) INH SCH (13:10)
[2023-10-20] MEDS: GABAPENTIN 100 MG CAP PO PRN (18:02)
[2023-10-20] MEDS: ACETAMINOPHEN TAB 650MG DOSE (2X325MG) PO PRN (18:02)
[2023-10-20] MEDS: RAMELTEON 8 MG TAB (ROZEREM) PO SCH (20:51)
[2023-10-20] MEDS: QUEtiapine FUMARATE **XR** 200MG TABLET PO SCH (20:51)
[2023-10-21] VITALS (7 sets, daily range): BP systolic 140–145; BP diastolic 96–100; TEMP 97.5; O2SAT 81–97
[2023-10-21] MEDS: IPRATROPIUM 0.5MG/ALBUTEROL 2.5MG INH SOL UD 3ML (DUONEB) NEB SCH ×4 (02:00→20:26)
[2023-10-21] MEDS: LEVOTHYROXINE 50MCG TABLET (0.05MG) PO SCH (06:03)
[2023-10-21] MEDS: SYMBICORT 160/4.5MCG INHALER 6GM INH SCH ×2 (07:48→20:26)
[2023-10-21] MEDS: TIOTROPIUM INHALER/CAPSULE (SPIRIVA) INH SCH (07:48)
[2023-10-21] MEDS: INSULIN LISPRO (NovoLOG) PER UNIT SC SCH ×4 (08:03→20:11)
[2023-10-21] MEDS: MAGNESIUM OXIDE 400MG TAB (MAG-OX) PO SCH ×2 (08:04→20:10)
[2023-10-21] MEDS: SERTRALINE HCL 25 MG TABLET PO SCH (08:04)
[2023-10-21] MEDS: ATORVASTATIN 20 MG TAB PO SCH (08:04)
[2023-10-21] MEDS: PANTOPRAZOLE 40MG TAB (PROTONIX) PO SCH (08:05)
[2023-10-21] MEDS: METOPROLOL TART 50 MG TAB PO SCH ×2 (08:05→20:11)
[2023-10-21] MEDS: predniSONE 10MG TAB PO SCH (08:06)
[2023-10-21] MEDS: FAMOTIDINE 20 MG TAB PO SCH (08:06)
[2023-10-21] MEDS: APIXABAN 5 MG TAB (ELIQUIS) PO SCH ×2 (08:06→20:10)
[2023-10-21] MEDS: DIGOXIN 0.125 MG TAB PO SCH (08:06)
[2023-10-21] MEDS: ANALGESIC BALM CRM 3OZ TOP SCH ×2 (08:07→20:48)
[2023-10-21] MEDS: NORCO, ANEXSIA 5/325MG TABLET (HYDROcodone/ACETAMINOPHEN) PO SCH (12:09)
[2023-10-21] MEDS: NORCO, ANEXSIA 5/325MG TABLET (HYDROcodone/ACETAMINOPHEN) PO PRN (18:54)
[2023-10-21] MEDS: RAMELTEON 8 MG TAB (ROZEREM) PO SCH (20:09)
[2023-10-21] MEDS: QUEtiapine FUMARATE **XR** 200MG TABLET PO SCH (20:09)
[2023-10-22] MEDS: GABAPENTIN 100 MG CAP PO PRN (00:12)
[2023-10-22] MEDS: IPRATROPIUM 0.5MG/ALBUTEROL 2.5MG INH SOL UD 3ML (DUONEB) NEB SCH ×4 (02:06→19:14)
[2023-10-22] MEDS: NORCO, ANEXSIA 5/325MG TABLET (HYDROcodone/ACETAMINOPHEN) PO PRN ×3 (03:00→21:21)
[2023-10-22 04:12] VITALS: O2SAT 97
[2023-10-22 05:23] VITALS: BP 146/100; TEMP 97.5; O2SAT 92
[2023-10-22] MEDS: LEVOTHYROXINE 50MCG TABLET (0.05MG) PO SCH (06:12)
[2023-10-22 06:50] VITALS: BP 152/98
[2023-10-22] MEDS: SYMBICORT 160/4.5MCG INHALER 6GM INH SCH ×2 (07:47→19:14)
[2023-10-22] MEDS: TIOTROPIUM INHALER/CAPSULE (SPIRIVA) INH SCH (07:47)
[2023-10-22] MEDS: predniSONE 10MG TAB PO SCH (08:34)
[2023-10-22] MEDS: INSULIN LISPRO (NovoLOG) PER UNIT SC SCH ×4 (08:34→20:37)
[2023-10-22] MEDS: METOPROLOL TART 50 MG TAB PO SCH ×2 (08:35→21:14)
[2023-10-22] MEDS: ATORVASTATIN 20 MG TAB PO SCH (08:36)
[2023-10-22] MEDS: MAGNESIUM OXIDE 400MG TAB (MAG-OX) PO SCH ×2 (08:36→21:12)
[2023-10-22] MEDS: FAMOTIDINE 20 MG TAB PO SCH (08:36)
[2023-10-22] MEDS: DIGOXIN 0.125 MG TAB PO SCH (08:37)
[2023-10-22] MEDS: SERTRALINE HCL 25 MG TABLET PO SCH (08:37)
[2023-10-22] MEDS: APIXABAN 5 MG TAB (ELIQUIS) PO SCH ×2 (08:37→21:12)
[2023-10-22] MEDS: PANTOPRAZOLE 40MG TAB (PROTONIX) PO SCH (08:37)
[2023-10-22] MEDS: ANALGESIC BALM CRM 3OZ TOP SCH ×2 (08:42→21:00)
[2023-10-22 19:18] VITALS: O2SAT 95
[2023-10-22] MEDS: QUEtiapine FUMARATE **XR** 200MG TABLET PO SCH (21:12)
[2023-10-22] MEDS: RAMELTEON 8 MG TAB (ROZEREM) PO SCH (21:12)
[2023-10-23] MEDS: IPRATROPIUM 0.5MG/ALBUTEROL 2.5MG INH SOL UD 3ML (DUONEB) NEB SCH ×4 (01:15→23:25)
[2023-10-23] MEDS: LEVOTHYROXINE 50MCG TABLET (0.05MG) PO SCH (05:10)
[2023-10-23 05:18] VITALS: BP 131/90; TEMP 97.5; O2SAT 95
[2023-10-23] MEDS: TIOTROPIUM INHALER/CAPSULE (SPIRIVA) INH SCH (07:15)
[2023-10-23] MEDS: SYMBICORT 160/4.5MCG INHALER 6GM INH SCH ×2 (07:16→19:19)
[2023-10-23] MEDS: NORCO, ANEXSIA 5/325MG TABLET (HYDROcodone/ACETAMINOPHEN) PO PRN ×2 (07:25→17:02)
[2023-10-23] MEDS: PANTOPRAZOLE 40MG TAB (PROTONIX) PO SCH (07:27)
[2023-10-23] MEDS: MAGNESIUM OXIDE 400MG TAB (MAG-OX) PO SCH ×2 (07:27→21:04)
[2023-10-23] MEDS: INSULIN LISPRO (NovoLOG) PER UNIT SC SCH ×4 (07:27→21:00)
[2023-10-23] MEDS: predniSONE 10MG TAB PO SCH (07:28)
[2023-10-23] MEDS: METOPROLOL TART 50 MG TAB PO SCH ×2 (07:28→21:04)
[2023-10-23] MEDS: ATORVASTATIN 20 MG TAB PO SCH (07:28)
[2023-10-23] MEDS: DIGOXIN 0.125 MG TAB PO SCH (07:29)
[2023-10-23] MEDS: SERTRALINE HCL 25 MG TABLET PO SCH (07:29)
[2023-10-23] MEDS: APIXABAN 5 MG TAB (ELIQUIS) PO SCH ×2 (07:29→21:03)
[2023-10-23] MEDS: FAMOTIDINE 20 MG TAB PO SCH (07:29)
[2023-10-23] MEDS: ANALGESIC BALM CRM 3OZ TOP SCH ×2 (07:30→21:02)
[2023-10-23] MEDS: GABAPENTIN 100 MG CAP PO PRN (14:13)
[2023-10-23 19:22] VITALS: O2SAT 91
[2023-10-23] MEDS: RAMELTEON 8 MG TAB (ROZEREM) PO SCH (21:04)
[2023-10-23] MEDS: QUEtiapine FUMARATE **XR** 200MG TABLET PO SCH (21:04)
[2023-10-24 05:40] VITALS: BP 140/94; TEMP 97.5; O2SAT 96
[2023-10-24] MEDS: LEVOTHYROXINE 50MCG TABLET (0.05MG) PO SCH (05:58)
[2023-10-24] MEDS: NORCO, ANEXSIA 5/325MG TABLET (HYDROcodone/ACETAMINOPHEN) PO PRN ×2 (05:59→17:21)
[2023-10-24] MEDS: TIOTROPIUM INHALER/CAPSULE (SPIRIVA) INH SCH (07:02)
[2023-10-24] MEDS: SYMBICORT 160/4.5MCG INHALER 6GM INH SCH ×2 (07:03→20:21)
[2023-10-24] MEDS: IPRATROPIUM 0.5MG/ALBUTEROL 2.5MG INH SOL UD 3ML (DUONEB) NEB SCH ×2 (07:03→15:27)
[2023-10-24] MEDS: INSULIN LISPRO (NovoLOG) PER UNIT SC SCH ×4 (07:31→20:30)
[2023-10-24] MEDS: METOPROLOL TART 50 MG TAB PO SCH ×2 (07:32→20:23)
[2023-10-24] MEDS: SERTRALINE HCL 25 MG TABLET PO SCH (07:33)
[2023-10-24] MEDS: predniSONE 10MG TAB PO SCH (07:33)
[2023-10-24] MEDS: PANTOPRAZOLE 40MG TAB (PROTONIX) PO SCH (07:34)
[2023-10-24] MEDS: ATORVASTATIN 20 MG TAB PO SCH (07:34)
[2023-10-24] MEDS: MAGNESIUM OXIDE 400MG TAB (MAG-OX) PO SCH ×2 (07:34→20:23)
[2023-10-24] MEDS: DIGOXIN 0.125 MG TAB PO SCH (07:35)
[2023-10-24] MEDS: FAMOTIDINE 20 MG TAB PO SCH (07:35)
[2023-10-24] MEDS: APIXABAN 5 MG TAB (ELIQUIS) PO SCH ×2 (07:35→20:23)
[2023-10-24] MEDS: ANALGESIC BALM CRM 3OZ TOP SCH ×2 (07:36→20:23)
[2023-10-24] MEDS: RAMELTEON 8 MG TAB (ROZEREM) PO SCH (20:23)
[2023-10-24] MEDS: QUEtiapine FUMARATE **XR** 200MG TABLET PO SCH (20:23)
[2023-10-25] MEDS: IPRATROPIUM 0.5MG/ALBUTEROL 2.5MG INH SOL UD 3ML (DUONEB) NEB SCH ×4 (00:57→23:04)
[2023-10-25] MEDS: NORCO, ANEXSIA 5/325MG TABLET (HYDROcodone/ACETAMINOPHEN) PO PRN ×3 (01:32→20:53)
[2023-10-25 05:33] VITALS: BP 161/99; TEMP 97.3; O2SAT 96
[2023-10-25] MEDS: LEVOTHYROXINE 50MCG TABLET (0.05MG) PO SCH (06:14)
[2023-10-25] MEDS: TIOTROPIUM INHALER/CAPSULE (SPIRIVA) INH SCH (07:02)
[2023-10-25] MEDS: SYMBICORT 160/4.5MCG INHALER 6GM INH SCH ×2 (07:03→19:14)
[2023-10-25] MEDS: ATORVASTATIN 20 MG TAB PO SCH (08:44)
[2023-10-25] MEDS: INSULIN LISPRO (NovoLOG) PER UNIT SC SCH ×4 (08:44→21:00)
[2023-10-25] MEDS: predniSONE 10MG TAB PO SCH (08:44)
[2023-10-25] MEDS: APIXABAN 5 MG TAB (ELIQUIS) PO SCH ×2 (08:45→20:51)
[2023-10-25] MEDS: DIGOXIN 0.125 MG TAB PO SCH (08:45)
[2023-10-25] MEDS: MAGNESIUM OXIDE 400MG TAB (MAG-OX) PO SCH ×2 (08:45→20:52)
[2023-10-25] MEDS: SERTRALINE HCL 25 MG TABLET PO SCH (08:45)
[2023-10-25] MEDS: PANTOPRAZOLE 40MG TAB (PROTONIX) PO SCH (08:45)
[2023-10-25] MEDS: METOPROLOL TART 50 MG TAB PO SCH ×2 (08:46→20:51)
[2023-10-25] MEDS: ANALGESIC BALM CRM 3OZ TOP SCH ×2 (08:47→20:52)
[2023-10-25] MEDS: FAMOTIDINE 20 MG TAB PO SCH (08:47)
[2023-10-25] MEDS: GABAPENTIN 100 MG CAP PO PRN (20:52)
[2023-10-25] MEDS: QUEtiapine FUMARATE **XR** 200MG TABLET PO SCH (20:52)
[2023-10-25] MEDS: RAMELTEON 8 MG TAB (ROZEREM) PO SCH (20:52)
[2023-10-26 05:30] VITALS: BP 159/116; TEMP 97.3; O2SAT 94
[2023-10-26 05:35] VITALS: BP 132/96
[2023-10-26] MEDS: LEVOTHYROXINE 50MCG TABLET (0.05MG) PO SCH (05:56)
[2023-10-26] MEDS: NORCO, ANEXSIA 5/325MG TABLET (HYDROcodone/ACETAMINOPHEN) PO PRN ×2 (06:29→17:09)
[2023-10-26] MEDS: TIOTROPIUM INHALER/CAPSULE (SPIRIVA) INH SCH (07:09)
[2023-10-26] MEDS: SYMBICORT 160/4.5MCG INHALER 6GM INH SCH ×2 (07:09→20:20)
[2023-10-26] MEDS: IPRATROPIUM 0.5MG/ALBUTEROL 2.5MG INH SOL UD 3ML (DUONEB) NEB SCH ×3 (07:10→23:14)
[2023-10-26] MEDS: DIGOXIN 0.125 MG TAB PO SCH (08:50)
[2023-10-26] MEDS: MAGNESIUM OXIDE 400MG TAB (MAG-OX) PO SCH ×2 (08:50→20:33)
[2023-10-26] MEDS: APIXABAN 5 MG TAB (ELIQUIS) PO SCH ×2 (08:50→20:33)
[2023-10-26] MEDS: INSULIN LISPRO (NovoLOG) PER UNIT SC SCH ×4 (08:50→20:33)
[2023-10-26] MEDS: ATORVASTATIN 20 MG TAB PO SCH (08:51)
[2023-10-26] MEDS: predniSONE 10MG TAB PO SCH (08:51)
[2023-10-26] MEDS: PANTOPRAZOLE 40MG TAB (PROTONIX) PO SCH (08:51)
[2023-10-26] MEDS: FAMOTIDINE 20 MG TAB PO SCH (08:52)
[2023-10-26] MEDS: SERTRALINE HCL 25 MG TABLET PO SCH (08:52)
[2023-10-26] MEDS: ANALGESIC BALM CRM 3OZ TOP SCH ×2 (08:53→20:34)
[2023-10-26] MEDS: METOPROLOL TART 50 MG TAB PO SCH ×2 (08:53→20:33)
[2023-10-26] MEDS: QUEtiapine FUMARATE **XR** 200MG TABLET PO SCH (20:32)
[2023-10-26] MEDS: RAMELTEON 8 MG TAB (ROZEREM) PO SCH (20:33)
[2023-10-26] MEDS: ACETAMINOPHEN TAB 650MG DOSE (2X325MG) PO PRN (20:35)
[2023-10-27 02:30] VITALS: O2SAT 85
[2023-10-27 02:40] VITALS: O2SAT 91
[2023-10-27] MEDS: NORCO, ANEXSIA 5/325MG TABLET (HYDROcodone/ACETAMINOPHEN) PO PRN ×2 (03:52→12:01)
[2023-10-27 04:17] VITALS: O2SAT 92
[2023-10-27 05:10] VITALS: BP 148/93; TEMP 97.7; O2SAT 93
[2023-10-27] MEDS: LEVOTHYROXINE 50MCG TABLET (0.05MG) PO SCH (05:52)
[2023-10-27] MEDS: SYMBICORT 160/4.5MCG INHALER 6GM INH SCH ×2 (07:58→19:40)
[2023-10-27] MEDS: TIOTROPIUM INHALER/CAPSULE (SPIRIVA) INH SCH (07:58)
[2023-10-27] MEDS: IPRATROPIUM 0.5MG/ALBUTEROL 2.5MG INH SOL UD 3ML (DUONEB) NEB SCH ×3 (07:58→19:40)
[2023-10-27] MEDS: APIXABAN 5 MG TAB (ELIQUIS) PO SCH ×2 (08:16→19:58)
[2023-10-27] MEDS: INSULIN LISPRO (NovoLOG) PER UNIT SC SCH ×4 (08:17→20:03)
[2023-10-27] MEDS: predniSONE 10MG TAB PO SCH (08:17)
[2023-10-27] MEDS: ATORVASTATIN 20 MG TAB PO SCH (08:17)
[2023-10-27] MEDS: FAMOTIDINE 20 MG TAB PO SCH (08:17)
[2023-10-27] MEDS: SERTRALINE HCL 25 MG TABLET PO SCH (08:17)
[2023-10-27] MEDS: DIGOXIN 0.125 MG TAB PO SCH (08:19)
[2023-10-27] MEDS: PANTOPRAZOLE 40MG TAB (PROTONIX) PO SCH (08:19)
[2023-10-27] MEDS: MAGNESIUM OXIDE 400MG TAB (MAG-OX) PO SCH ×2 (08:19→19:58)
[2023-10-27] MEDS: ACETAMINOPHEN TAB 650MG DOSE (2X325MG) PO PRN ×2 (08:21→15:56)
[2023-10-27] MEDS: METOPROLOL TART 50 MG TAB PO SCH ×2 (08:21→19:58)
[2023-10-27] MEDS: ANALGESIC BALM CRM 3OZ TOP SCH ×2 (08:21→19:59)
[2023-10-27 19:42] VITALS: O2SAT 94
[2023-10-27] MEDS: RAMELTEON 8 MG TAB (ROZEREM) PO SCH (19:59)
[2023-10-27] MEDS: QUEtiapine FUMARATE **XR** 200MG TABLET PO SCH (19:59)
[2023-10-28] MEDS: NORCO, ANEXSIA 5/325MG TABLET (HYDROcodone/ACETAMINOPHEN) PO PRN ×3 (01:35→21:42)
[2023-10-28 05:30] VITALS: BP 140/100; TEMP 97.7; O2SAT 97
[2023-10-28] MEDS: LEVOTHYROXINE 50MCG TABLET (0.05MG) PO SCH (05:43)
[2023-10-28] MEDS: METOPROLOL TART 50 MG TAB PO SCH ×2 (05:43→21:40)
[2023-10-28 07:28] VITALS: O2SAT 95
[2023-10-28] MEDS: IPRATROPIUM 0.5MG/ALBUTEROL 2.5MG INH SOL UD 3ML (DUONEB) NEB SCH ×3 (07:29→23:19)
[2023-10-28] MEDS: SYMBICORT 160/4.5MCG INHALER 6GM INH SCH ×2 (07:29→19:37)
[2023-10-28] MEDS: TIOTROPIUM INHALER/CAPSULE (SPIRIVA) INH SCH (07:32)
[2023-10-28] MEDS: INSULIN LISPRO (NovoLOG) PER UNIT SC SCH ×4 (07:50→21:00)
[2023-10-28] MEDS: ANALGESIC BALM CRM 3OZ TOP SCH ×3 (09:00→21:00)
[2023-10-28] MEDS: APIXABAN 5 MG TAB (ELIQUIS) PO SCH ×2 (09:08→21:39)
[2023-10-28] MEDS: SERTRALINE HCL 25 MG TABLET PO SCH (09:08)
[2023-10-28] MEDS: FAMOTIDINE 20 MG TAB PO SCH (09:08)
[2023-10-28] MEDS: ATORVASTATIN 20 MG TAB PO SCH (09:09)
[2023-10-28] MEDS: MAGNESIUM OXIDE 400MG TAB (MAG-OX) PO SCH ×2 (09:09→21:40)
[2023-10-28] MEDS: DIGOXIN 0.125 MG TAB PO SCH (09:10)
[2023-10-28] MEDS: PANTOPRAZOLE 40MG TAB (PROTONIX) PO SCH (09:10)
[2023-10-28 09:11] VITALS: BP 142/92
[2023-10-28 19:38] VITALS: O2SAT 91
[2023-10-28] MEDS: RAMELTEON 8 MG TAB (ROZEREM) PO SCH (21:40)
[2023-10-28] MEDS: QUEtiapine FUMARATE **XR** 200MG TABLET PO SCH (21:40)
[2023-10-28] MEDS: GABAPENTIN 100 MG CAP PO PRN (21:42)
[2023-10-28 21:44] VITALS: O2SAT 93
[2023-10-29 00:27] VITALS: O2SAT 89
[2023-10-29] MEDS: LEVOTHYROXINE 50MCG TABLET (0.05MG) PO SCH (05:44)
[2023-10-29 05:57] VITALS: BP 142/88; TEMP 97.2; O2SAT 92
[2023-10-29] MEDS: SYMBICORT 160/4.5MCG INHALER 6GM INH SCH ×2 (06:01→19:53)
[2023-10-29] MEDS: TIOTROPIUM INHALER/CAPSULE (SPIRIVA) INH SCH (06:01)
[2023-10-29] MEDS: ANALGESIC BALM CRM 3OZ TOP SCH ×3 (09:00→21:00)
[2023-10-29] MEDS: PANTOPRAZOLE 40MG TAB (PROTONIX) PO SCH (09:08)
[2023-10-29] MEDS: NORCO, ANEXSIA 5/325MG TABLET (HYDROcodone/ACETAMINOPHEN) PO PRN ×2 (09:08→18:15)
[2023-10-29] MEDS: FAMOTIDINE 20 MG TAB PO SCH (09:08)
[2023-10-29] MEDS: DIGOXIN 0.125 MG TAB PO SCH (09:09)
[2023-10-29] MEDS: ATORVASTATIN 20 MG TAB PO SCH (09:09)
[2023-10-29] MEDS: APIXABAN 5 MG TAB (ELIQUIS) PO SCH ×2 (09:09→21:21)
[2023-10-29] MEDS: MAGNESIUM OXIDE 400MG TAB (MAG-OX) PO SCH ×2 (09:09→21:21)
[2023-10-29] MEDS: SERTRALINE HCL 25 MG TABLET PO SCH (09:09)
[2023-10-29] MEDS: INSULIN LISPRO (NovoLOG) PER UNIT SC SCH ×4 (09:10→21:00)
[2023-10-29] MEDS: METOPROLOL TART 50 MG TAB PO SCH ×2 (09:10→21:21)
[2023-10-29 10:43] LABS: BASO % 0.4 % (0.0-1.0); EOS # 0.2 10^3/uL (0.0-0.5); EOS % 3.2 % (0.0-3.0); HEMATOCRIT 33.8 % (36.0-47.0); HEMOGLOBIN 9.8 g/dl (12.0-15.5); LYMPH # 0.8 10^3/uL (1.5-5.0); MEAN CORPUSCULAR HEMOGLOBIN 28.1 pg (27.0-33.0); MEAN CORPUSCULAR VOLUME 96.8 fl (80.0-96.0); MONO # 0.5 10^3/uL (0.0-0.8); MONO % 7.2 % (2.0-8.0); NEUTROPHILS # 5.3 10^3/uL (1.5-8.5); NEUTROPHILS % 76.9 % (36.0-66.0); PLATELET COUNT, AUTOMATED 154 10^3/uL (150-450); RED BLOOD COUNT 3.49 10^6/uL (4.00-5.40); WHITE BLOOD COUNT 6.9 10^3/uL (4.0-10.0)
[2023-10-29 11:07] LABS: ALBUMIN 2.9 G/DL (3.2-5.2); ALKALINE PHOSPHATASE 95 U/L (46-116); ALT/SGPT 23 U/L (7.0-40); AST/SGOT 21 U/L (<34); BILIRUBIN,TOTAL 0.8 MG/DL (0.3-1.2); BLOOD UREA NITROGEN 26 MG/DL (9-23); CALCIUM LEVEL 8.2 MG/DL (8.3-10.6); CARBON DIOXIDE LEVEL 37 MMOL/L (20-31); CHLORIDE LEVEL 104 MMOL/L (98-107); GLOMERULAR FILTRATION RATE > 60.0 (>45); GLUCOSE, FASTING 128 MG/DL (74-106); MAGNESIUM LEVEL 1.8 MG/DL (1.8-2.4); POTASSIUM SERUM 3.9 MMOL/L (3.5-5.1); SODIUM LEVEL 145 MMOL/L (136-145); TOTAL PROTEIN 5.3 G/DL (5.7-8.2)
[2023-10-29] MEDS: FUROSEMIDE 40 MG TAB PO SCH ×2 (12:15→18:15)
[2023-10-29] MEDS: GABAPENTIN 100 MG CAP PO PRN ×2 (12:17→21:22)
[2023-10-29] MEDS: ACETAMINOPHEN TAB 650MG DOSE (2X325MG) PO PRN ×2 (14:43→21:22)
[2023-10-29] MEDS: IPRATROPIUM 0.5MG/ALBUTEROL 2.5MG INH SOL UD 3ML (DUONEB) NEB SCH ×2 (15:40→23:13)
[2023-10-29 21:02] VITALS: BP 144/98
[2023-10-29] MEDS: RAMELTEON 8 MG TAB (ROZEREM) PO SCH (21:21)
[2023-10-29] MEDS: QUEtiapine FUMARATE **XR** 200MG TABLET PO SCH (21:21)
[2023-10-30 00:10] VITALS: O2SAT 94
[2023-10-30 05:34] VITALS: BP 140/73; TEMP 98.6; O2SAT 92
[2023-10-30] MEDS: LEVOTHYROXINE 50MCG TABLET (0.05MG) PO SCH (05:34)
[2023-10-30] MEDS: NORCO, ANEXSIA 5/325MG TABLET (HYDROcodone/ACETAMINOPHEN) PO PRN ×2 (05:34→13:50)
[2023-10-30 06:39] LABS: BASO % 0.3 % (0.0-1.0); EOS # 0.2 10^3/uL (0.0-0.5); EOS % 3.1 % (0.0-3.0); HEMATOCRIT 33.4 % (36.0-47.0); HEMOGLOBIN 9.6 g/dl (12.0-15.5); LYMPH % 17.4 % (24.0-44.0); MEAN CORPUSCULAR HEMOGLOBIN 27.8 pg (27.0-33.0); MEAN CORPUSCULAR HGB CONC 28.7 g/dl (32.0-36.5); MEAN CORPUSCULAR VOLUME 96.8 fl (80.0-96.0); MONO # 0.5 10^3/uL (0.0-0.8); MONO % 7.8 % (2.0-8.0); NEUTROPHILS # 4.1 10^3/uL (1.5-8.5); NEUTROPHILS % 71.2 % (36.0-66.0); PLATELET COUNT, AUTOMATED 151 10^3/uL (150-450); RED BLOOD COUNT 3.45 10^6/uL (4.00-5.40); WHITE BLOOD COUNT 5.8 10^3/uL (4.0-10.0)
[2023-10-30 07:28] LABS: ALBUMIN 2.8 G/DL (3.2-5.2); ALKALINE PHOSPHATASE 95 U/L (46-116); ALT/SGPT 23 U/L (7.0-40); AST/SGOT 18 U/L (<34); BILIRUBIN,TOTAL 0.8 MG/DL (0.3-1.2); BLOOD UREA NITROGEN 27 MG/DL (9-23); CALCIUM LEVEL 8.1 MG/DL (8.3-10.6); CARBON DIOXIDE LEVEL > 40.0 MMOL/L (20-31); CHLORIDE LEVEL 101 MMOL/L (98-107); CREATININE FOR GFR 0.88 MG/DL (0.55-1.30); GLOMERULAR FILTRATION RATE > 60.0 (>45); GLUCOSE, FASTING 127 MG/DL (74-106); MAGNESIUM LEVEL 1.6 MG/DL (1.8-2.4); POTASSIUM SERUM 3.5 MMOL/L (3.5-5.1); SODIUM LEVEL 148 MMOL/L (136-145); TOTAL PROTEIN 5.3 G/DL (5.7-8.2)
[2023-10-30] MEDS: IPRATROPIUM 0.5MG/ALBUTEROL 2.5MG INH SOL UD 3ML (DUONEB) NEB SCH ×3 (07:43→19:40)
[2023-10-30] MEDS: TIOTROPIUM INHALER/CAPSULE (SPIRIVA) INH SCH (07:43)
[2023-10-30] MEDS: SYMBICORT 160/4.5MCG INHALER 6GM INH SCH ×2 (07:43→19:40)
[2023-10-30] MEDS: APIXABAN 5 MG TAB (ELIQUIS) PO SCH ×2 (08:42→20:51)
[2023-10-30] MEDS: ATORVASTATIN 20 MG TAB PO SCH (08:42)
[2023-10-30] MEDS: INSULIN LISPRO (NovoLOG) PER UNIT SC SCH ×4 (08:42→20:44)
[2023-10-30] MEDS: SERTRALINE HCL 25 MG TABLET PO SCH (08:43)
[2023-10-30] MEDS: FAMOTIDINE 20 MG TAB PO SCH (08:43)
[2023-10-30] MEDS: DIGOXIN 0.125 MG TAB PO SCH (08:43)
[2023-10-30] MEDS: PANTOPRAZOLE 40MG TAB (PROTONIX) PO SCH (08:43)
[2023-10-30] MEDS: MAGNESIUM OXIDE 400MG TAB (MAG-OX) PO SCH ×2 (08:43→20:51)
[2023-10-30] MEDS: FUROSEMIDE 40 MG TAB PO SCH (08:43)
[2023-10-30] MEDS: ANALGESIC BALM CRM 3OZ TOP SCH ×2 (08:44→20:53)
[2023-10-30] MEDS: METOPROLOL TART 50 MG TAB PO SCH ×2 (08:44→20:52)
[2023-10-30] MEDS ORDERED: acetaZOLAMIDE 250MG TAB PO ONE (11:00)
[2023-10-30] MEDS: GABAPENTIN 100 MG CAP PO PRN ×2 (11:38→20:51)
[2023-10-30] MEDS: RAMELTEON 8 MG TAB (ROZEREM) PO SCH (20:51)
[2023-10-30] MEDS: QUEtiapine FUMARATE **XR** 200MG TABLET PO SCH (20:51)
[2023-10-31] MEDS: NORCO, ANEXSIA 5/325MG TABLET (HYDROcodone/ACETAMINOPHEN) PO PRN ×2 (04:16→13:52)
[2023-10-31] MEDS: LEVOTHYROXINE 50MCG TABLET (0.05MG) PO SCH (05:49)
[2023-10-31 06:07] VITALS: BP 124/81; TEMP 98.2; O2SAT 97
[2023-10-31 06:43] LABS: BASO % 0.3 % (0.0-1.0); EOS # 0.2 10^3/uL (0.0-0.5); EOS % 2.9 % (0.0-3.0); HEMATOCRIT 32.3 % (36.0-47.0); HEMOGLOBIN 9.4 g/dl (12.0-15.5); MEAN CORPUSCULAR HGB CONC 29.1 g/dl (32.0-36.5); MEAN CORPUSCULAR VOLUME 96.1 fl (80.0-96.0); MONO # 0.5 10^3/uL (0.0-0.8); NEUTROPHILS # 5.2 10^3/uL (1.5-8.5); NEUTROPHILS % 75.7 % (36.0-66.0); PLATELET COUNT, AUTOMATED 131 10^3/uL (150-450); RED BLOOD COUNT 3.36 10^6/uL (4.00-5.40); WHITE BLOOD COUNT 6.9 10^3/uL (4.0-10.0)
[2023-10-31 07:11] LABS: ALBUMIN 2.7 G/DL (3.2-5.2); ALKALINE PHOSPHATASE 99 U/L (46-116); ALT/SGPT 16 U/L (7.0-40); AST/SGOT 18 U/L (<34); BILIRUBIN,TOTAL 0.7 MG/DL (0.3-1.2); BLOOD UREA NITROGEN 28 MG/DL (9-23); CALCIUM LEVEL 7.9 MG/DL (8.3-10.6); CARBON DIOXIDE LEVEL > 40.0 MMOL/L (20-31); CHLORIDE LEVEL 100 MMOL/L (98-107); CREATININE FOR GFR 0.96 MG/DL (0.55-1.30); GLOMERULAR FILTRATION RATE > 60.0 (>45); GLUCOSE, FASTING 101 MG/DL (74-106); MAGNESIUM LEVEL 1.6 MG/DL (1.8-2.4); POTASSIUM SERUM 3.7 MMOL/L (3.5-5.1); SODIUM LEVEL 144 MMOL/L (136-145); TOTAL PROTEIN 5.1 G/DL (5.7-8.2)
[2023-10-31] MEDS: SYMBICORT 160/4.5MCG INHALER 6GM INH SCH ×2 (07:16→19:13)
[2023-10-31] MEDS: IPRATROPIUM 0.5MG/ALBUTEROL 2.5MG INH SOL UD 3ML (DUONEB) NEB SCH ×3 (07:16→23:04)
[2023-10-31] MEDS: TIOTROPIUM INHALER/CAPSULE (SPIRIVA) INH SCH (07:16)
[2023-10-31] MEDS: INSULIN LISPRO (NovoLOG) PER UNIT SC SCH ×4 (07:51→21:00)
[2023-10-31] MEDS ORDERED: acetaZOLAMIDE 250MG TAB PO SCH (09:00)
[2023-10-31] MEDS: SERTRALINE HCL 25 MG TABLET PO SCH (09:34)
[2023-10-31] MEDS: PANTOPRAZOLE 40MG TAB (PROTONIX) PO SCH (09:34)
[2023-10-31] MEDS: ATORVASTATIN 20 MG TAB PO SCH (09:34)
[2023-10-31] MEDS: APIXABAN 5 MG TAB (ELIQUIS) PO SCH ×2 (09:34→20:48)
[2023-10-31] MEDS: MAGNESIUM OXIDE 400MG TAB (MAG-OX) PO SCH ×3 (09:34→20:48)
[2023-10-31] MEDS: FAMOTIDINE 20 MG TAB PO SCH (09:34)
[2023-10-31] MEDS: DIGOXIN 0.125 MG TAB PO SCH (09:35)
[2023-10-31] MEDS: ANALGESIC BALM CRM 3OZ TOP SCH ×3 (09:36→21:07)
[2023-10-31] MEDS: METOPROLOL TART 50 MG TAB PO SCH ×2 (09:36→20:51)
[2023-10-31] MEDS: QUEtiapine FUMARATE **XR** 200MG TABLET PO SCH (20:48)
[2023-10-31] MEDS: RAMELTEON 8 MG TAB (ROZEREM) PO SCH (20:48)
[2023-10-31] MEDS: GABAPENTIN 100 MG CAP PO PRN (20:50)
[2023-10-31] MEDS: ACETAMINOPHEN TAB 650MG DOSE (2X325MG) PO PRN (20:50)
[2023-11-01] VITALS (8 sets, daily range): BP systolic 107–128; BP diastolic 67–79; TEMP 99.1–100.9; O2SAT 88–98
[2023-11-01] MEDS: LEVOTHYROXINE 50MCG TABLET (0.05MG) PO SCH (05:58)
[2023-11-01 06:24] LABS: BASO % 0.2 % (0.0-1.0); EOS # 0.2 10^3/uL (0.0-0.5); EOS % 3.4 % (0.0-3.0); HEMOGLOBIN 9.5 g/dl (12.0-15.5); LYMPH # 0.6 10^3/uL (1.5-5.0); MEAN CORPUSCULAR HEMOGLOBIN 27.9 pg (27.0-33.0); MEAN CORPUSCULAR HGB CONC 28.8 g/dl (32.0-36.5); MEAN CORPUSCULAR VOLUME 96.8 fl (80.0-96.0); MONO # 0.4 10^3/uL (0.0-0.8); MONO % 10.1 % (2.0-8.0); NEUTROPHILS # 3.1 10^3/uL (1.5-8.5); NEUTROPHILS % 72.1 % (36.0-66.0); PLATELET COUNT, AUTOMATED 107 10^3/uL (150-450); RED BLOOD COUNT 3.41 10^6/uL (4.00-5.40); WHITE BLOOD COUNT 4.4 10^3/uL (4.0-10.0)
[2023-11-01 06:49] LABS: ALBUMIN 2.7 G/DL (3.2-5.2); ALKALINE PHOSPHATASE 101 U/L (46-116); ALT/SGPT 18 U/L (7.0-40); AST/SGOT 24 U/L (<34); BILIRUBIN,TOTAL 0.6 MG/DL (0.3-1.2); BLOOD UREA NITROGEN 28 MG/DL (9-23); CALCIUM LEVEL 8.1 MG/DL (8.3-10.6); CARBON DIOXIDE LEVEL 39 MMOL/L (20-31); CHLORIDE LEVEL 100 MMOL/L (98-107); CREATININE FOR GFR 0.85 MG/DL (0.55-1.30); GLOMERULAR FILTRATION RATE > 60.0 (>45); GLUCOSE, FASTING 95 MG/DL (74-106); MAGNESIUM LEVEL 1.8 MG/DL (1.8-2.4); POTASSIUM SERUM 3.6 MMOL/L (3.5-5.1); SODIUM LEVEL 142 MMOL/L (136-145); TOTAL PROTEIN 5.1 G/DL (5.7-8.2)
[2023-11-01] MEDS: INSULIN LISPRO (NovoLOG) PER UNIT SC SCH ×4 (07:30→21:00)
[2023-11-01] MEDS: IPRATROPIUM 0.5MG/ALBUTEROL 2.5MG INH SOL UD 3ML (DUONEB) NEB SCH ×3 (07:34→23:20)
[2023-11-01] MEDS: SYMBICORT 160/4.5MCG INHALER 6GM INH SCH ×2 (07:34→19:35)
[2023-11-01] MEDS: TIOTROPIUM INHALER/CAPSULE (SPIRIVA) INH SCH (07:34)
[2023-11-01] MEDS: ANALGESIC BALM CRM 3OZ TOP SCH ×2 (09:00→20:23)
[2023-11-01] MEDS: NORCO, ANEXSIA 5/325MG TABLET (HYDROcodone/ACETAMINOPHEN) PO PRN ×2 (10:14→20:22)
[2023-11-01] MEDS: SERTRALINE HCL 25 MG TABLET PO SCH (10:14)
[2023-11-01] MEDS: ATORVASTATIN 20 MG TAB PO SCH (10:15)
[2023-11-01] MEDS: FAMOTIDINE 20 MG TAB PO SCH (10:16)
[2023-11-01] MEDS: MAGNESIUM OXIDE 400MG TAB (MAG-OX) PO SCH ×3 (10:16→20:20)
[2023-11-01] MEDS: DIGOXIN 0.125 MG TAB PO SCH (10:16)
[2023-11-01] MEDS: PANTOPRAZOLE 40MG TAB (PROTONIX) PO SCH (10:16)
[2023-11-01] MEDS: APIXABAN 5 MG TAB (ELIQUIS) PO SCH ×2 (10:17→20:21)
[2023-11-01] MEDS: METOPROLOL TART 50 MG TAB PO SCH ×2 (10:20→20:22)
[2023-11-01] MEDS ORDERED: acetaZOLAMIDE 250MG TAB PO ONE (13:00)
[2023-11-01] MEDS: FUROSEMIDE 10MG PER 1/2 TABLET PO SCH ×2 (13:44→16:59)
[2023-11-01] MEDS: ACETAMINOPHEN TAB 650MG DOSE (2X325MG) PO PRN (13:55)
[2023-11-01] MEDS: FIORICET TAB PO PRN (16:58)
[2023-11-01] MEDS: RAMELTEON 8 MG TAB (ROZEREM) PO SCH (20:21)
[2023-11-01] MEDS: QUEtiapine FUMARATE **XR** 200MG TABLET PO SCH (20:22)
[2023-11-02] MEDS: LEVOTHYROXINE 50MCG TABLET (0.05MG) PO SCH (05:41)
[2023-11-02 05:52] VITALS: BP 119/77; TEMP 98.8; O2SAT 91
[2023-11-02 06:04] LABS: BASO % 0.2 % (0.0-1.0); EOS # 0.1 10^3/uL (0.0-0.5); EOS % 2.2 % (0.0-3.0); HEMATOCRIT 32.2 % (36.0-47.0); HEMOGLOBIN 9.4 g/dl (12.0-15.5); LYMPH # 0.7 10^3/uL (1.5-5.0); MEAN CORPUSCULAR HEMOGLOBIN 27.8 pg (27.0-33.0); MEAN CORPUSCULAR HGB CONC 29.2 g/dl (32.0-36.5); MEAN CORPUSCULAR VOLUME 95.3 fl (80.0-96.0); MONO # 0.5 10^3/uL (0.0-0.8); MONO % 10.7 % (2.0-8.0); NEUTROPHILS # 3.2 10^3/uL (1.5-8.5); NEUTROPHILS % 70.7 % (36.0-66.0); PLATELET COUNT, AUTOMATED 105 10^3/uL (150-450); RED BLOOD COUNT 3.38 10^6/uL (4.00-5.40); WHITE BLOOD COUNT 4.6 10^3/uL (4.0-10.0)
[2023-11-02 06:27] LABS: ALBUMIN 2.7 G/DL (3.2-5.2); ALKALINE PHOSPHATASE 114 U/L (46-116); ALT/SGPT 18 U/L (7.0-40); AST/SGOT 25 U/L (<34); BILIRUBIN,TOTAL 0.6 MG/DL (0.3-1.2); BLOOD UREA NITROGEN 29 MG/DL (9-23); CALCIUM LEVEL 8.1 MG/DL (8.3-10.6); CARBON DIOXIDE LEVEL 36 MMOL/L (20-31); CHLORIDE LEVEL 101 MMOL/L (98-107); CREATININE FOR GFR 0.98 MG/DL (0.55-1.30); GLOMERULAR FILTRATION RATE > 60.0 (>45); GLUCOSE, FASTING 98 MG/DL (74-106); MAGNESIUM LEVEL 1.8 MG/DL (1.8-2.4); POTASSIUM SERUM 3.6 MMOL/L (3.5-5.1); SODIUM LEVEL 141 MMOL/L (136-145); TOTAL PROTEIN 5.3 G/DL (5.7-8.2)
[2023-11-02] MEDS: INSULIN LISPRO (NovoLOG) PER UNIT SC SCH ×4 (07:30→21:00)
[2023-11-02] MEDS: SYMBICORT 160/4.5MCG INHALER 6GM INH SCH ×2 (07:36→19:56)
[2023-11-02] MEDS: IPRATROPIUM 0.5MG/ALBUTEROL 2.5MG INH SOL UD 3ML (DUONEB) NEB SCH ×3 (07:36→23:54)
[2023-11-02] MEDS: TIOTROPIUM INHALER/CAPSULE (SPIRIVA) INH SCH (07:36)
[2023-11-02] MEDS: ANALGESIC BALM CRM 3OZ TOP SCH ×2 (09:00→20:02)
[2023-11-02] MEDS: APIXABAN 5 MG TAB (ELIQUIS) PO SCH ×2 (09:33→20:01)
[2023-11-02] MEDS: SERTRALINE HCL 25 MG TABLET PO SCH (09:33)
[2023-11-02] MEDS: ATORVASTATIN 20 MG TAB PO SCH (09:34)
[2023-11-02] MEDS: MAGNESIUM OXIDE 400MG TAB (MAG-OX) PO SCH ×3 (09:34→20:01)
[2023-11-02] MEDS: DIGOXIN 0.125 MG TAB PO SCH (09:35)
[2023-11-02] MEDS: METOPROLOL TART 50 MG TAB PO SCH ×2 (09:35→20:02)
[2023-11-02] MEDS: PANTOPRAZOLE 40MG TAB (PROTONIX) PO SCH (09:35)
[2023-11-02] MEDS: FUROSEMIDE 10MG PER 1/2 TABLET PO SCH ×2 (09:35→17:48)
[2023-11-02] MEDS: FAMOTIDINE 20 MG TAB PO SCH (09:35)
[2023-11-02] MEDS: NORCO, ANEXSIA 5/325MG TABLET (HYDROcodone/ACETAMINOPHEN) PO PRN ×2 (09:36→20:01)
[2023-11-02] MEDS: FIORICET TAB PO PRN ×2 (14:38→22:20)
[2023-11-02 17:51] VITALS: BP 122/78
[2023-11-02] MEDS: QUEtiapine FUMARATE **XR** 200MG TABLET PO SCH (20:00)
[2023-11-02 21:00] VITALS: BP 129/81; TEMP 99.9; O2SAT 91
[2023-11-02] MEDS: RAMELTEON 8 MG TAB (ROZEREM) PO SCH (22:20)
[2023-11-03] MEDS: NORCO, ANEXSIA 5/325MG TABLET (HYDROcodone/ACETAMINOPHEN) PO PRN ×3 (04:13→20:26)
[2023-11-03 06:00] VITALS: BP 102/52; TEMP 99.3; O2SAT 91
[2023-11-03 06:13] LABS: BASO % 0.3 % (0.0-1.0); EOS # 0.1 10^3/uL (0.0-0.5); EOS % 3.4 % (0.0-3.0); HEMATOCRIT 31.9 % (36.0-47.0); HEMOGLOBIN 9.2 g/dl (12.0-15.5); LYMPH # 0.8 10^3/uL (1.5-5.0); LYMPH % 21.8 % (24.0-44.0); MEAN CORPUSCULAR HEMOGLOBIN 27.6 pg (27.0-33.0); MEAN CORPUSCULAR HGB CONC 28.8 g/dl (32.0-36.5); MEAN CORPUSCULAR VOLUME 95.8 fl (80.0-96.0); MONO # 0.4 10^3/uL (0.0-0.8); MONO % 12.1 % (2.0-8.0); NEUTROPHILS # 2.2 10^3/uL (1.5-8.5); NEUTROPHILS % 62.1 % (36.0-66.0); PLATELET COUNT, AUTOMATED 104 10^3/uL (150-450); RED BLOOD COUNT 3.33 10^6/uL (4.00-5.40); WHITE BLOOD COUNT 3.5 10^3/uL (4.0-10.0)
[2023-11-03 06:38] LABS: ALBUMIN 2.6 G/DL (3.2-5.2); ALKALINE PHOSPHATASE 118 U/L (46-116); ALT/SGPT 21 U/L (7.0-40); AST/SGOT 28 U/L (<34); BILIRUBIN,TOTAL 0.5 MG/DL (0.3-1.2); BLOOD UREA NITROGEN 29 MG/DL (9-23); CALCIUM LEVEL 8.1 MG/DL (8.3-10.6); CARBON DIOXIDE LEVEL 30 MMOL/L (20-31); CHLORIDE LEVEL 104 MMOL/L (98-107); CREATININE FOR GFR 0.85 MG/DL (0.55-1.30); GLOMERULAR FILTRATION RATE > 60.0 (>45); GLUCOSE, FASTING 93 MG/DL (74-106); MAGNESIUM LEVEL 1.8 MG/DL (1.8-2.4); POTASSIUM SERUM 3.8 MMOL/L (3.5-5.1); SODIUM LEVEL 143 MMOL/L (136-145); TOTAL PROTEIN 5.2 G/DL (5.7-8.2)
[2023-11-03] MEDS: LEVOTHYROXINE 50MCG TABLET (0.05MG) PO SCH (06:43)
[2023-11-03] MEDS: TIOTROPIUM INHALER/CAPSULE (SPIRIVA) INH SCH (07:19)
[2023-11-03] MEDS: SYMBICORT 160/4.5MCG INHALER 6GM INH SCH ×2 (07:20→20:44)
[2023-11-03] MEDS: IPRATROPIUM 0.5MG/ALBUTEROL 2.5MG INH SOL UD 3ML (DUONEB) NEB SCH ×3 (07:20→20:45)
[2023-11-03] MEDS: INSULIN LISPRO (NovoLOG) PER UNIT SC SCH ×4 (07:30→21:00)
[2023-11-03] MEDS: DIGOXIN 0.125 MG TAB PO SCH (09:52)
[2023-11-03] MEDS: FIORICET TAB PO PRN ×2 (09:53→16:42)
[2023-11-03] MEDS: APIXABAN 5 MG TAB (ELIQUIS) PO SCH ×2 (09:53→20:25)
[2023-11-03] MEDS: ATORVASTATIN 20 MG TAB PO SCH (09:54)
[2023-11-03] MEDS: PANTOPRAZOLE 40MG TAB (PROTONIX) PO SCH (09:54)
[2023-11-03] MEDS: FAMOTIDINE 20 MG TAB PO SCH (09:54)
[2023-11-03] MEDS: ANALGESIC BALM CRM 3OZ TOP SCH ×2 (09:54→20:42)
[2023-11-03] MEDS: SERTRALINE HCL 25 MG TABLET PO SCH (09:54)
[2023-11-03] MEDS: METOPROLOL TART 50 MG TAB PO SCH ×2 (09:54→20:29)
[2023-11-03] MEDS: MAGNESIUM OXIDE 400MG TAB (MAG-OX) PO SCH ×3 (09:54→20:25)
[2023-11-03] MEDS: QUEtiapine FUMARATE **XR** 200MG TABLET PO SCH (20:25)
[2023-11-03] MEDS: RAMELTEON 8 MG TAB (ROZEREM) PO SCH (20:25)
[2023-11-03 20:30] VITALS: BP 155/94; TEMP 99.3; O2SAT 88
[2023-11-04] MEDS: FIORICET TAB PO PRN ×3 (05:24→17:13)
[2023-11-04 05:46] LABS: BASO % 0.3 % (0.0-1.0); EOS # 0.2 10^3/uL (0.0-0.5); EOS % 5.5 % (0.0-3.0); HEMATOCRIT 33.5 % (36.0-47.0); HEMOGLOBIN 9.7 g/dl (12.0-15.5); LYMPH # 0.8 10^3/uL (1.5-5.0); LYMPH % 25.6 % (24.0-44.0); MEAN CORPUSCULAR HEMOGLOBIN 27.2 pg (27.0-33.0); MEAN CORPUSCULAR VOLUME 94.1 fl (80.0-96.0); MONO # 0.3 10^3/uL (0.0-0.8); MONO % 9.8 % (2.0-8.0); NEUTROPHILS # 1.9 10^3/uL (1.5-8.5); NEUTROPHILS % 58.8 % (36.0-66.0); PLATELET COUNT, AUTOMATED 100 10^3/uL (150-450); RED BLOOD COUNT 3.56 10^6/uL (4.00-5.40); WHITE BLOOD COUNT 3.3 10^3/uL (4.0-10.0)
[2023-11-04 06:00] VITALS: BP 107/67; TEMP 98.6; O2SAT 95
[2023-11-04 06:13] LABS: ALBUMIN 2.7 G/DL (3.2-5.2); ALKALINE PHOSPHATASE 129 U/L (46-116); ALT/SGPT 18 U/L (7.0-40); AST/SGOT 24 U/L (<34); BILIRUBIN,TOTAL 0.5 MG/DL (0.3-1.2); BLOOD UREA NITROGEN 24 MG/DL (9-23); CALCIUM LEVEL 8.1 MG/DL (8.3-10.6); CARBON DIOXIDE LEVEL 35 MMOL/L (20-31); CHLORIDE LEVEL 104 MMOL/L (98-107); GLOMERULAR FILTRATION RATE > 60.0 (>45); GLUCOSE, FASTING 93 MG/DL (74-106); MAGNESIUM LEVEL 1.9 MG/DL (1.8-2.4); POTASSIUM SERUM 3.6 MMOL/L (3.5-5.1); SODIUM LEVEL 145 MMOL/L (136-145); TOTAL PROTEIN 5.4 G/DL (5.7-8.2)
[2023-11-04] MEDS: LEVOTHYROXINE 50MCG TABLET (0.05MG) PO SCH (06:34)
[2023-11-04] MEDS: SYMBICORT 160/4.5MCG INHALER 6GM INH SCH ×2 (07:19→19:49)
[2023-11-04] MEDS: TIOTROPIUM INHALER/CAPSULE (SPIRIVA) INH SCH (07:19)
[2023-11-04] MEDS: IPRATROPIUM 0.5MG/ALBUTEROL 2.5MG INH SOL UD 3ML (DUONEB) NEB SCH ×3 (07:19→19:49)
[2023-11-04] MEDS: INSULIN LISPRO (NovoLOG) PER UNIT SC SCH ×4 (07:30→21:00)
[2023-11-04] MEDS: ANALGESIC BALM CRM 3OZ TOP SCH ×2 (09:00→21:00)
[2023-11-04] MEDS: SERTRALINE HCL 25 MG TABLET PO SCH (09:31)
[2023-11-04] MEDS: APIXABAN 5 MG TAB (ELIQUIS) PO SCH ×2 (09:32→22:24)
[2023-11-04] MEDS: NORCO, ANEXSIA 5/325MG TABLET (HYDROcodone/ACETAMINOPHEN) PO PRN ×2 (09:32→22:24)
[2023-11-04] MEDS: FAMOTIDINE 20 MG TAB PO SCH (09:32)
[2023-11-04] MEDS: PANTOPRAZOLE 40MG TAB (PROTONIX) PO SCH (09:32)
[2023-11-04] MEDS: MAGNESIUM OXIDE 400MG TAB (MAG-OX) PO SCH ×3 (09:32→22:23)
[2023-11-04] MEDS: DIGOXIN 0.125 MG TAB PO SCH (09:32)
[2023-11-04] MEDS: ATORVASTATIN 20 MG TAB PO SCH (09:33)
[2023-11-04] MEDS: METOPROLOL TART 50 MG TAB PO SCH ×2 (09:36→22:28)
[2023-11-04] MEDS: ACETAMINOPHEN TAB 650MG DOSE (2X325MG) PO PRN (15:48)
[2023-11-04] MEDS: GABAPENTIN 100 MG CAP PO PRN (15:48)
[2023-11-04] MEDS: QUEtiapine FUMARATE **XR** 200MG TABLET PO SCH (22:23)
[2023-11-04] MEDS: RAMELTEON 8 MG TAB (ROZEREM) PO SCH (22:23)
[2023-11-05 05:43] LABS: BASO % 0.3 % (0.0-1.0); EOS # 0.2 10^3/uL (0.0-0.5); EOS % 5.2 % (0.0-3.0); HEMATOCRIT 32.9 % (36.0-47.0); HEMOGLOBIN 9.7 g/dl (12.0-15.5); LYMPH # 1.1 10^3/uL (1.5-5.0); LYMPH % 29.6 % (24.0-44.0); MEAN CORPUSCULAR HEMOGLOBIN 27.8 pg (27.0-33.0); MEAN CORPUSCULAR HGB CONC 29.5 g/dl (32.0-36.5); MEAN CORPUSCULAR VOLUME 94.3 fl (80.0-96.0); MONO # 0.3 10^3/uL (0.0-0.8); MONO % 7.4 % (2.0-8.0); NEUTROPHILS # 2.1 10^3/uL (1.5-8.5); NEUTROPHILS % 57.5 % (36.0-66.0); PLATELET COUNT, AUTOMATED 109 10^3/uL (150-450); RED BLOOD COUNT 3.49 10^6/uL (4.00-5.40); WHITE BLOOD COUNT 3.7 10^3/uL (4.0-10.0)
[2023-11-05] MEDS: LEVOTHYROXINE 50MCG TABLET (0.05MG) PO SCH (05:48)
[2023-11-05 06:00] VITALS: BP 118/72; TEMP 98.4; O2SAT 93
[2023-11-05 06:14] LABS: ALBUMIN 2.7 G/DL (3.2-5.2); ALKALINE PHOSPHATASE 124 U/L (46-116); ALT/SGPT 16 U/L (7.0-40); AST/SGOT 21 U/L (<34); BILIRUBIN,TOTAL 0.6 MG/DL (0.3-1.2); BLOOD UREA NITROGEN 22 MG/DL (9-23); CARBON DIOXIDE LEVEL 35 MMOL/L (20-31); CHLORIDE LEVEL 104 MMOL/L (98-107); CREATININE FOR GFR 0.77 MG/DL (0.55-1.30); GLOMERULAR FILTRATION RATE > 60.0 (>45); GLUCOSE, FASTING 92 MG/DL (74-106); POTASSIUM SERUM 3.4 MMOL/L (3.5-5.1); SODIUM LEVEL 146 MMOL/L (136-145); TOTAL PROTEIN 5.4 G/DL (5.7-8.2)
[2023-11-05] MEDS: NORCO, ANEXSIA 5/325MG TABLET (HYDROcodone/ACETAMINOPHEN) PO PRN ×3 (06:22→22:46)
[2023-11-05] MEDS: SYMBICORT 160/4.5MCG INHALER 6GM INH SCH ×2 (07:16→19:48)
[2023-11-05] MEDS: TIOTROPIUM INHALER/CAPSULE (SPIRIVA) INH SCH (07:16)
[2023-11-05] MEDS: IPRATROPIUM 0.5MG/ALBUTEROL 2.5MG INH SOL UD 3ML (DUONEB) NEB SCH ×3 (07:16→19:48)
[2023-11-05] MEDS: INSULIN LISPRO (NovoLOG) PER UNIT SC SCH ×4 (07:30→21:00)
[2023-11-05] MEDS: ANALGESIC BALM CRM 3OZ TOP SCH ×2 (09:00→21:00)
[2023-11-05] MEDS: APIXABAN 5 MG TAB (ELIQUIS) PO SCH ×2 (10:32→21:37)
[2023-11-05] MEDS: FIORICET TAB PO PRN ×2 (10:33→17:31)
[2023-11-05] MEDS: FAMOTIDINE 20 MG TAB PO SCH (10:33)
[2023-11-05] MEDS: MAGNESIUM OXIDE 400MG TAB (MAG-OX) PO SCH ×3 (10:33→21:36)
[2023-11-05] MEDS: DIGOXIN 0.125 MG TAB PO SCH (10:34)
[2023-11-05] MEDS: PANTOPRAZOLE 40MG TAB (PROTONIX) PO SCH (10:34)
[2023-11-05] MEDS: SERTRALINE HCL 25 MG TABLET PO SCH (10:34)
[2023-11-05] MEDS: ATORVASTATIN 20 MG TAB PO SCH (10:34)
[2023-11-05] MEDS: METOPROLOL TART 50 MG TAB PO SCH ×2 (10:36→21:37)
[2023-11-05] MEDS ORDERED: POTASSIUM CHLORIDE 10MEQ SR TABLET PO ONE (14:20)
[2023-11-05 14:57] LABS: ABG BASE EXCESS 4.1 (-2.0-2.0); ABG HCO3 29.8 MMOL/L (22.0-26.0); ABG O2 SATURATION 90.1 % (95.0-99.0); ABG PARTIAL PRESSURE CO2 49.9 mmHg (35.0-45.0); ABG PARTIAL PRESSURE O2 57.6 mmHg (75.0-100.0); ABG TOTAL CO2 31.3 MMOL/L (23.0-31.0); ABG pH (ARTERIAL) 7.394 UNITS (7.350-7.450)
[2023-11-05] MEDS: BUMETANIDE 1 MG TAB PO SCH (15:30)
[2023-11-05 15:33] VITALS: O2SAT 92
[2023-11-05 16:15] LABS: PROCALCITONIN 0.06 ng/ml
[2023-11-05] MEDS: ACETAMINOPHEN TAB 650MG DOSE (2X325MG) PO PRN (19:46)
[2023-11-05 21:00] VITALS: BP 137/61; TEMP 98.6; O2SAT 92
[2023-11-05] MEDS: QUEtiapine FUMARATE **XR** 200MG TABLET PO SCH (21:35)
[2023-11-05] MEDS: RAMELTEON 8 MG TAB (ROZEREM) PO SCH (21:36)
[2023-11-05] MEDS: LACTIC ACID 12% LOTION 225 GM BTL TOP SCH (22:45)
[2023-11-06] VITALS (11 sets, daily range): BP systolic 130–212; BP diastolic 84–145; TEMP 98.2–98.8; O2SAT 73–97
[2023-11-06] MEDS: FIORICET TAB PO PRN ×2 (00:50→20:49)
[2023-11-06 06:14] LABS: BLOOD UREA NITROGEN 22 MG/DL (9-23); CARBON DIOXIDE LEVEL 37 MMOL/L (20-31); CHLORIDE LEVEL 103 MMOL/L (98-107); CREATININE FOR GFR 0.85 MG/DL (0.55-1.30); GLOMERULAR FILTRATION RATE > 60.0 (>45); GLUCOSE, FASTING 98 MG/DL (74-106); POTASSIUM SERUM 3.5 MMOL/L (3.5-5.1); SODIUM LEVEL 145 MMOL/L (136-145)
[2023-11-06] MEDS: LEVOTHYROXINE 50MCG TABLET (0.05MG) PO SCH (06:29)
[2023-11-06] MEDS: INSULIN LISPRO (NovoLOG) PER UNIT SC SCH ×4 (07:30→21:00)
[2023-11-06] MEDS: SYMBICORT 160/4.5MCG INHALER 6GM INH SCH ×2 (07:30→22:15)
[2023-11-06] MEDS: IPRATROPIUM 0.5MG/ALBUTEROL 2.5MG INH SOL UD 3ML (DUONEB) NEB SCH ×3 (07:30→23:27)
[2023-11-06] MEDS: TIOTROPIUM INHALER/CAPSULE (SPIRIVA) INH SCH (07:30)
[2023-11-06] MEDS: ANALGESIC BALM CRM 3OZ TOP SCH ×2 (09:00→20:51)
[2023-11-06] MEDS: POTASSIUM CHLORIDE 10MEQ SR TABLET PO SCH (09:07)
[2023-11-06] MEDS: APIXABAN 5 MG TAB (ELIQUIS) PO SCH ×2 (09:08→20:47)
[2023-11-06] MEDS: SERTRALINE HCL 25 MG TABLET PO SCH (09:08)
[2023-11-06] MEDS: DIGOXIN 0.125 MG TAB PO SCH (09:08)
[2023-11-06] MEDS: ATORVASTATIN 20 MG TAB PO SCH (09:08)
[2023-11-06] MEDS: BUMETANIDE 1 MG TAB PO SCH (09:08)
[2023-11-06] MEDS: PANTOPRAZOLE 40MG TAB (PROTONIX) PO SCH (09:08)
[2023-11-06] MEDS: FAMOTIDINE 20 MG TAB PO SCH (09:09)
[2023-11-06] MEDS: MAGNESIUM OXIDE 400MG TAB (MAG-OX) PO SCH ×3 (09:09→20:47)
[2023-11-06] MEDS: METOPROLOL TART 50 MG TAB PO SCH ×2 (09:13→20:49)
[2023-11-06] MEDS: NORCO, ANEXSIA 5/325MG TABLET (HYDROcodone/ACETAMINOPHEN) PO PRN ×2 (09:14→17:10)
[2023-11-06] MEDS: LACTIC ACID 12% LOTION 225 GM BTL TOP SCH ×2 (09:15→20:51)
[2023-11-06] MEDS: ACETAMINOPHEN TAB 650MG DOSE (2X325MG) PO PRN (12:34)
[2023-11-06] MEDS: QUEtiapine FUMARATE **XR** 200MG TABLET PO SCH (20:47)
[2023-11-06] MEDS: RAMELTEON 8 MG TAB (ROZEREM) PO SCH (20:48)
[2023-11-06] MEDS ORDERED: IPRATROPIUM 0.5MG/ALBUTEROL 2.5MG INH SOL UD 3ML (DUONEB) NEB STA (21:59)
[2023-11-06 22:14] LABS: ABG BASE EXCESS 5.8 (-2.0-2.0); ABG HCO3 33.1 MMOL/L (22.0-26.0); ABG O2 SATURATION 99.5 % (95.0-99.0); ABG PARTIAL PRESSURE O2 206.9 mmHg (75.0-100.0); ABG STANDARD HCO3 29.8 MMOL/L. (22.0-26.0)
[2023-11-06 22:15] LABS: ABG PARTIAL PRESSURE CO2 61.3 mmHg (35.0-45.0)
[2023-11-06] MEDS ORDERED: MORPHINE 4 MG/ML 1ML VIAL IV ONE (22:30)
[2023-11-06] MEDS ORDERED: LEVALBUTEROL HFA 45MCG/ACT 15GM INHALER INH PRN (22:35)
[2023-11-06] MEDS ORDERED: LEVALBUTEROL 1.25MG 0.5ML CONCENTRATE NEB INH PRN (22:35)
[2023-11-06 22:52] LABS: CK-MB VALUE MASS 1.2 NG/ML (<3.6)
[2023-11-06 22:54] LABS: MB/CK RELATIVE INDEX 2.92 (< OR =4)
[2023-11-07 01:03] VITALS: BP 128/95; TEMP 99.1; O2SAT 89
[2023-11-07] MEDS: NORCO, ANEXSIA 5/325MG TABLET (HYDROcodone/ACETAMINOPHEN) PO PRN ×3 (02:18→18:58)
[2023-11-07] MEDS: IPRATROPIUM 0.5MG/ALBUTEROL 2.5MG INH SOL UD 3ML (DUONEB) NEB SCH ×4 (02:51→22:10)
[2023-11-07 03:11] LABS: ABG BASE EXCESS 6.3 (-2.0-2.0); ABG HCO3 32.9 MMOL/L (22.0-26.0); ABG O2 SATURATION 98.3 % (95.0-99.0); ABG PARTIAL PRESSURE O2 131.5 mmHg (75.0-100.0); ABG STANDARD HCO3 30.2 MMOL/L. (22.0-26.0); ABG TOTAL CO2 34.7 MMOL/L (23.0-31.0); ABG pH (ARTERIAL) 7.372 UNITS (7.350-7.450)
[2023-11-07 05:40] VITALS: BP 133/97; TEMP 98.1; O2SAT 92
[2023-11-07] MEDS: LEVOTHYROXINE 50MCG TABLET (0.05MG) PO SCH (05:55)
[2023-11-07] MEDS: SYMBICORT 160/4.5MCG INHALER 6GM INH SCH ×2 (07:15→22:10)
[2023-11-07] MEDS: TIOTROPIUM INHALER/CAPSULE (SPIRIVA) INH SCH (07:15)
[2023-11-07] MEDS ORDERED: PILL CUTTER 1 EACH XX PRN (07:20)
[2023-11-07 08:22] LABS: BLOOD UREA NITROGEN 20 MG/DL (9-23); CALCIUM LEVEL 7.9 MG/DL (8.3-10.6); CARBON DIOXIDE LEVEL 38 MMOL/L (20-31); CHLORIDE LEVEL 105 MMOL/L (98-107); CREATININE FOR GFR 0.81 MG/DL (0.55-1.30); GLOMERULAR FILTRATION RATE > 60.0 (>45); GLUCOSE, FASTING 98 MG/DL (74-106); POTASSIUM SERUM 3.7 MMOL/L (3.5-5.1); SODIUM LEVEL 146 MMOL/L (136-145)
[2023-11-07] MEDS: INSULIN LISPRO (NovoLOG) PER UNIT SC SCH ×4 (08:26→21:00)
[2023-11-07] MEDS: ATORVASTATIN 20 MG TAB PO SCH (08:27)
[2023-11-07] MEDS: METOPROLOL TART 50 MG TAB PO SCH ×2 (08:27→20:57)
[2023-11-07] MEDS: DIGOXIN 0.125 MG TAB PO SCH (08:27)
[2023-11-07] MEDS: MAGNESIUM OXIDE 400MG TAB (MAG-OX) PO SCH ×3 (08:27→20:55)
[2023-11-07] MEDS: POTASSIUM CHLORIDE 10MEQ SR TABLET PO SCH (08:27)
[2023-11-07] MEDS: SERTRALINE HCL 25 MG TABLET PO SCH (08:28)
[2023-11-07] MEDS: BUMETANIDE 1 MG TAB PO SCH ×3 (08:28→20:03)
[2023-11-07] MEDS: PANTOPRAZOLE 40MG TAB (PROTONIX) PO SCH (08:28)
[2023-11-07] MEDS: FIORICET TAB PO PRN ×2 (08:28→15:37)
[2023-11-07] MEDS: LACTIC ACID 12% LOTION 225 GM BTL TOP SCH ×2 (08:28→21:00)
[2023-11-07] MEDS: APIXABAN 5 MG TAB (ELIQUIS) PO SCH ×2 (08:28→20:59)
[2023-11-07] MEDS: FAMOTIDINE 20 MG TAB PO SCH (08:28)
[2023-11-07] MEDS: ANALGESIC BALM CRM 3OZ TOP SCH ×2 (08:29→21:12)
[2023-11-07] MEDS: acetaZOLAMIDE 250MG TAB PO SCH ×2 (10:33→20:58)
[2023-11-07] MEDS ORDERED: metOLazone 5 MG TAB PO ONE (11:00)
[2023-11-07 14:00] VITALS: BP 121/79; TEMP 99.1; O2SAT 92
[2023-11-07] MEDS: guaiFENesin SYRUP 200MG 10ML UDC PO PRN (15:35)
[2023-11-07] MEDS: ACETAMINOPHEN TAB 650MG DOSE (2X325MG) PO PRN (15:36)
[2023-11-07] MEDS: GABAPENTIN 100 MG CAP PO PRN (15:36)
[2023-11-07] MEDS: RAMELTEON 8 MG TAB (ROZEREM) PO SCH (20:59)
[2023-11-07] MEDS: QUEtiapine FUMARATE **XR** 200MG TABLET PO SCH (20:59)
[2023-11-07 21:13] VITALS: BP 125/81; TEMP 98.8; O2SAT 92
[2023-11-08] MEDS: IPRATROPIUM 0.5MG/ALBUTEROL 2.5MG INH SOL UD 3ML (DUONEB) NEB SCH ×4 (02:30→20:07)
[2023-11-08 05:24] VITALS: BP 125/81; TEMP 98.8; O2SAT 94
[2023-11-08 05:47] LABS: BASO % 0.5 % (0.0-1.0); EOS # 0.2 10^3/uL (0.0-0.5); EOS % 5.4 % (0.0-3.0); HEMATOCRIT 34.2 % (36.0-47.0); LYMPH # 1.5 10^3/uL (1.5-5.0); LYMPH % 34.7 % (24.0-44.0); MEAN CORPUSCULAR HEMOGLOBIN 27.6 pg (27.0-33.0); MEAN CORPUSCULAR HGB CONC 29.2 g/dl (32.0-36.5); MEAN CORPUSCULAR VOLUME 94.5 fl (80.0-96.0); MONO # 0.3 10^3/uL (0.0-0.8); MONO % 6.1 % (2.0-8.0); NEUTROPHILS # 2.3 10^3/uL (1.5-8.5); NEUTROPHILS % 53.1 % (36.0-66.0); PLATELET COUNT, AUTOMATED 133 10^3/uL (150-450); RED BLOOD COUNT 3.62 10^6/uL (4.00-5.40); WHITE BLOOD COUNT 4.3 10^3/uL (4.0-10.0)
[2023-11-08 06:10] LABS: BLOOD UREA NITROGEN 21 MG/DL (9-23); CALCIUM LEVEL 8.1 MG/DL (8.3-10.6); CARBON DIOXIDE LEVEL 39 MMOL/L (20-31); CHLORIDE LEVEL 99 MMOL/L (98-107); CREATININE FOR GFR 0.88 MG/DL (0.55-1.30); GLOMERULAR FILTRATION RATE > 60.0 (>45); GLUCOSE, FASTING 91 MG/DL (74-106); MAGNESIUM LEVEL 2.1 MG/DL (1.8-2.4); POTASSIUM SERUM 3.4 MMOL/L (3.5-5.1); SODIUM LEVEL 142 MMOL/L (136-145)
[2023-11-08] MEDS: LEVOTHYROXINE 50MCG TABLET (0.05MG) PO SCH (06:15)
[2023-11-08] MEDS: NORCO, ANEXSIA 5/325MG TABLET (HYDROcodone/ACETAMINOPHEN) PO PRN ×3 (06:24→22:18)
[2023-11-08] MEDS: INSULIN LISPRO (NovoLOG) PER UNIT SC SCH ×4 (07:30→21:00)
[2023-11-08] MEDS ORDERED: POTASSIUM CHLORIDE 10MEQ SR TABLET PO ONE (08:00)
[2023-11-08] MEDS: PANTOPRAZOLE 40MG TAB (PROTONIX) PO SCH (08:26)
[2023-11-08] MEDS: APIXABAN 5 MG TAB (ELIQUIS) PO SCH ×2 (08:26→22:18)
[2023-11-08] MEDS: SERTRALINE HCL 25 MG TABLET PO SCH (08:26)
[2023-11-08] MEDS: BUMETANIDE 1 MG TAB PO SCH ×2 (08:27→22:18)
[2023-11-08] MEDS: acetaZOLAMIDE 250MG TAB PO SCH (08:27)
[2023-11-08] MEDS: DIGOXIN 0.125 MG TAB PO SCH (08:27)
[2023-11-08] MEDS: GABAPENTIN 100 MG CAP PO PRN ×2 (08:27→17:18)
[2023-11-08] MEDS: POTASSIUM CHLORIDE 10MEQ SR TABLET PO SCH (08:28)
[2023-11-08] MEDS: ATORVASTATIN 20 MG TAB PO SCH (08:28)
[2023-11-08] MEDS: METOPROLOL TART 50 MG TAB PO SCH ×2 (08:28→22:16)
[2023-11-08] MEDS: FAMOTIDINE 20 MG TAB PO SCH (08:28)
[2023-11-08] MEDS: FIORICET TAB PO PRN ×2 (08:29→17:18)
[2023-11-08] MEDS: MAGNESIUM OXIDE 400MG TAB (MAG-OX) PO SCH ×3 (08:29→22:14)
[2023-11-08] MEDS: ANALGESIC BALM CRM 3OZ TOP SCH ×2 (08:33→22:19)
[2023-11-08] MEDS: LACTIC ACID 12% LOTION 225 GM BTL TOP SCH ×2 (08:33→22:19)
[2023-11-08] MEDS: SYMBICORT 160/4.5MCG INHALER 6GM INH SCH ×2 (09:14→20:07)
[2023-11-08] MEDS: TIOTROPIUM INHALER/CAPSULE (SPIRIVA) INH SCH (09:14)
[2023-11-08 14:00] VITALS: BP 118/75; TEMP 98.1; O2SAT 94
[2023-11-08] MEDS: guaiFENesin SYRUP 200MG 10ML UDC PO PRN (14:19)
[2023-11-08] MEDS: ACETAMINOPHEN TAB 650MG DOSE (2X325MG) PO PRN (17:19)
[2023-11-08 22:05] VITALS: BP 141/93; TEMP 98.8; O2SAT 94
[2023-11-08] MEDS: RAMELTEON 8 MG TAB (ROZEREM) PO SCH (22:16)
[2023-11-08] MEDS: QUEtiapine FUMARATE **XR** 200MG TABLET PO SCH (22:16)
[2023-11-09] MEDS: IPRATROPIUM 0.5MG/ALBUTEROL 2.5MG INH SOL UD 3ML (DUONEB) NEB SCH ×4 (01:22→18:50)
[2023-11-09 05:34] VITALS: BP 131/92; TEMP 99; O2SAT 95
[2023-11-09] MEDS: LEVOTHYROXINE 50MCG TABLET (0.05MG) PO SCH (06:17)
[2023-11-09] MEDS: TIOTROPIUM INHALER/CAPSULE (SPIRIVA) INH SCH (06:22)
[2023-11-09] MEDS: SYMBICORT 160/4.5MCG INHALER 6GM INH SCH ×2 (06:22→18:50)
[2023-11-09] MEDS: INSULIN LISPRO (NovoLOG) PER UNIT SC SCH ×4 (07:30→20:18)
[2023-11-09] MEDS: ANALGESIC BALM CRM 3OZ TOP SCH ×2 (09:00→20:19)
[2023-11-09] MEDS: SERTRALINE HCL 25 MG TABLET PO SCH (09:16)
[2023-11-09] MEDS: BUMETANIDE 1 MG TAB PO SCH ×2 (09:16→20:16)
[2023-11-09] MEDS: APIXABAN 5 MG TAB (ELIQUIS) PO SCH ×2 (09:16→20:17)
[2023-11-09] MEDS: POTASSIUM CHLORIDE 10MEQ SR TABLET PO SCH (09:16)
[2023-11-09] MEDS: GABAPENTIN 100 MG CAP PO PRN ×2 (09:16→15:33)
[2023-11-09] MEDS: guaiFENesin SYRUP 200MG 10ML UDC PO PRN (09:16)
[2023-11-09] MEDS: DIGOXIN 0.125 MG TAB PO SCH (09:17)
[2023-11-09] MEDS: MAGNESIUM OXIDE 400MG TAB (MAG-OX) PO SCH ×3 (09:17→20:16)
[2023-11-09] MEDS: ATORVASTATIN 20 MG TAB PO SCH (09:17)
[2023-11-09] MEDS: FAMOTIDINE 20 MG TAB PO SCH (09:17)
[2023-11-09] MEDS: METOPROLOL TART 50 MG TAB PO SCH ×2 (09:17→20:17)
[2023-11-09] MEDS: PANTOPRAZOLE 40MG TAB (PROTONIX) PO SCH (09:17)
[2023-11-09] MEDS: NORCO, ANEXSIA 5/325MG TABLET (HYDROcodone/ACETAMINOPHEN) PO PRN ×2 (09:18→17:37)
[2023-11-09] MEDS: LACTIC ACID 12% LOTION 225 GM BTL TOP SCH ×2 (09:20→20:18)
[2023-11-09] MEDS: ACETAMINOPHEN TAB 650MG DOSE (2X325MG) PO PRN (15:34)
[2023-11-09] MEDS: RAMELTEON 8 MG TAB (ROZEREM) PO SCH (20:15)
[2023-11-09] MEDS: QUEtiapine FUMARATE **XR** 200MG TABLET PO SCH (20:15)
[2023-11-10] MEDS: IPRATROPIUM 0.5MG/ALBUTEROL 2.5MG INH SOL UD 3ML (DUONEB) NEB SCH ×4 (00:59→20:35)
[2023-11-10 05:33] VITALS: BP 120/82; TEMP 98.2; O2SAT 94
[2023-11-10] MEDS: NORCO, ANEXSIA 5/325MG TABLET (HYDROcodone/ACETAMINOPHEN) PO PRN ×2 (06:13→17:11)
[2023-11-10] MEDS: LEVOTHYROXINE 50MCG TABLET (0.05MG) PO SCH (06:13)
[2023-11-10] MEDS: TIOTROPIUM INHALER/CAPSULE (SPIRIVA) INH SCH (07:17)
[2023-11-10] MEDS: SYMBICORT 160/4.5MCG INHALER 6GM INH SCH ×2 (07:17→20:35)
[2023-11-10] MEDS: INSULIN LISPRO (NovoLOG) PER UNIT SC SCH ×4 (07:23→21:00)
[2023-11-10] MEDS: BUMETANIDE 1 MG TAB PO SCH (08:56)
[2023-11-10] MEDS: GABAPENTIN 100 MG CAP PO PRN (08:56)
[2023-11-10] MEDS: FAMOTIDINE 20 MG TAB PO SCH (08:56)
[2023-11-10] MEDS: ACETAMINOPHEN TAB 650MG DOSE (2X325MG) PO PRN (08:56)
[2023-11-10] MEDS: DIGOXIN 0.125 MG TAB PO SCH (08:56)
[2023-11-10] MEDS: APIXABAN 5 MG TAB (ELIQUIS) PO SCH ×2 (08:56→21:50)
[2023-11-10] MEDS: ATORVASTATIN 20 MG TAB PO SCH (08:56)
[2023-11-10] MEDS: ANALGESIC BALM CRM 3OZ TOP SCH ×2 (09:00→21:00)
[2023-11-10] MEDS: SERTRALINE HCL 25 MG TABLET PO SCH (09:02)
[2023-11-10] MEDS: PANTOPRAZOLE 40MG TAB (PROTONIX) PO SCH (09:02)
[2023-11-10] MEDS: POTASSIUM CHLORIDE 10MEQ SR TABLET PO SCH (09:02)
[2023-11-10] MEDS: MAGNESIUM OXIDE 400MG TAB (MAG-OX) PO SCH ×3 (09:02→21:50)
[2023-11-10] MEDS: METOPROLOL TART 50 MG TAB PO SCH ×2 (09:02→21:51)
[2023-11-10] MEDS: LACTIC ACID 12% LOTION 225 GM BTL TOP SCH ×2 (09:03→21:50)
[2023-11-10 14:51] LABS: BLOOD UREA NITROGEN 24 MG/DL (9-23); CALCIUM LEVEL 8.9 MG/DL (8.3-10.6); CARBON DIOXIDE LEVEL > 40.0 MMOL/L (20-31); CHLORIDE LEVEL 98 MMOL/L (98-107); CREATININE FOR GFR 0.94 MG/DL (0.55-1.30); GLOMERULAR FILTRATION RATE > 60.0 (>45); GLUCOSE, FASTING 109 MG/DL (74-106); POTASSIUM SERUM 3.7 MMOL/L (3.5-5.1); SODIUM LEVEL 144 MMOL/L (136-145)
[2023-11-10 19:42] VITALS: O2SAT 95
[2023-11-10] MEDS: DIMETHICONE 2% OINTMENT(VANICREAM) 70GM TUBE TOP SCH (21:50)
[2023-11-10] MEDS: QUEtiapine FUMARATE **XR** 200MG TABLET PO SCH (21:50)
[2023-11-10] MEDS: RAMELTEON 8 MG TAB (ROZEREM) PO SCH (21:50)
[2023-11-11] MEDS: IPRATROPIUM 0.5MG/ALBUTEROL 2.5MG INH SOL UD 3ML (DUONEB) NEB SCH ×4 (02:00→22:12)
[2023-11-11 02:04] VITALS: O2SAT 97
[2023-11-11 06:05] VITALS: BP 124/76; TEMP 98.4; O2SAT 90
[2023-11-11] MEDS: LEVOTHYROXINE 50MCG TABLET (0.05MG) PO SCH (06:05)
[2023-11-11 07:30] VITALS: O2SAT 95
[2023-11-11 07:35] VITALS: O2SAT 94
[2023-11-11] MEDS: TIOTROPIUM INHALER/CAPSULE (SPIRIVA) INH SCH (08:11)
[2023-11-11] MEDS: SYMBICORT 160/4.5MCG INHALER 6GM INH SCH ×2 (08:11→22:11)
[2023-11-11] MEDS: guaiFENesin SYRUP 200MG 10ML UDC PO PRN ×2 (08:37→21:23)
[2023-11-11] MEDS: INSULIN LISPRO (NovoLOG) PER UNIT SC SCH ×4 (08:38→21:00)
[2023-11-11] MEDS: MAGNESIUM OXIDE 400MG TAB (MAG-OX) PO SCH ×3 (08:38→21:17)
[2023-11-11] MEDS: FAMOTIDINE 20 MG TAB PO SCH (08:38)
[2023-11-11] MEDS: SERTRALINE HCL 25 MG TABLET PO SCH (08:38)
[2023-11-11] MEDS: ATORVASTATIN 20 MG TAB PO SCH (08:38)
[2023-11-11] MEDS: PANTOPRAZOLE 40MG TAB (PROTONIX) PO SCH (08:39)
[2023-11-11] MEDS: APIXABAN 5 MG TAB (ELIQUIS) PO SCH ×2 (08:39→21:15)
[2023-11-11] MEDS: GABAPENTIN 100 MG CAP PO PRN ×3 (08:39→21:21)
[2023-11-11] MEDS: NORCO, ANEXSIA 5/325MG TABLET (HYDROcodone/ACETAMINOPHEN) PO PRN ×2 (08:40→17:02)
[2023-11-11] MEDS: METOPROLOL TART 50 MG TAB PO SCH ×2 (08:40→21:17)
[2023-11-11] MEDS: DIGOXIN 0.125 MG TAB PO SCH (08:40)
[2023-11-11] MEDS: ANALGESIC BALM CRM 3OZ TOP SCH ×3 (08:41→21:19)
[2023-11-11] MEDS: DIMETHICONE 2% OINTMENT(VANICREAM) 70GM TUBE TOP SCH ×2 (08:41→21:18)
[2023-11-11] MEDS: LACTIC ACID 12% LOTION 225 GM BTL TOP SCH ×2 (08:41→21:19)
[2023-11-11 20:00] VITALS: BP 138/100; TEMP 99.8; O2SAT 91
[2023-11-11 21:02] VITALS: BP 140/90
[2023-11-11] MEDS: RAMELTEON 8 MG TAB (ROZEREM) PO SCH (21:17)
[2023-11-11] MEDS: QUEtiapine FUMARATE **XR** 200MG TABLET PO SCH (21:17)
[2023-11-11] MEDS: ACETAMINOPHEN TAB 650MG DOSE (2X325MG) PO PRN ×2 (21:20)
[2023-11-11] MEDS: FIORICET TAB PO PRN (21:21)
[2023-11-12 00:32] VITALS: O2SAT 92
[2023-11-12] MEDS: IPRATROPIUM 0.5MG/ALBUTEROL 2.5MG INH SOL UD 3ML (DUONEB) NEB SCH ×4 (01:32→19:02)
[2023-11-12] MEDS: NORCO, ANEXSIA 5/325MG TABLET (HYDROcodone/ACETAMINOPHEN) PO PRN ×3 (01:57→17:46)
[2023-11-12] MEDS: LEVOTHYROXINE 50MCG TABLET (0.05MG) PO SCH (05:36)
[2023-11-12 06:00] VITALS: BP 115/78; TEMP 98.6; O2SAT 94
[2023-11-12] MEDS: SYMBICORT 160/4.5MCG INHALER 6GM INH SCH ×2 (07:44→19:02)
[2023-11-12] MEDS: TIOTROPIUM INHALER/CAPSULE (SPIRIVA) INH SCH (07:44)
[2023-11-12] MEDS: ANALGESIC BALM CRM 3OZ TOP SCH ×2 (09:00→21:00)
[2023-11-12] MEDS: INSULIN LISPRO (NovoLOG) PER UNIT SC SCH ×4 (10:15→21:00)
[2023-11-12] MEDS: PANTOPRAZOLE 40MG TAB (PROTONIX) PO SCH (10:15)
[2023-11-12] MEDS: FAMOTIDINE 20 MG TAB PO SCH (10:15)
[2023-11-12] MEDS: guaiFENesin SYRUP 200MG 10ML UDC PO PRN ×2 (10:15→21:34)
[2023-11-12] MEDS: APIXABAN 5 MG TAB (ELIQUIS) PO SCH ×2 (10:15→21:31)
[2023-11-12] MEDS: SERTRALINE HCL 25 MG TABLET PO SCH (10:15)
[2023-11-12] MEDS: GABAPENTIN 100 MG CAP PO PRN ×2 (10:15→21:32)
[2023-11-12] MEDS: DIGOXIN 0.125 MG TAB PO SCH (10:16)
[2023-11-12] MEDS: METOPROLOL TART 50 MG TAB PO SCH ×2 (10:18→21:32)
[2023-11-12] MEDS: MAGNESIUM OXIDE 400MG TAB (MAG-OX) PO SCH ×3 (10:18→21:32)
[2023-11-12] MEDS: ATORVASTATIN 20 MG TAB PO SCH (10:18)
[2023-11-12] MEDS: LACTIC ACID 12% LOTION 225 GM BTL TOP SCH ×2 (10:19→21:32)
[2023-11-12] MEDS: DIMETHICONE 2% OINTMENT(VANICREAM) 70GM TUBE TOP SCH ×2 (10:19→21:32)
[2023-11-12 10:32] VITALS: O2SAT 90; O2SAT 94
[2023-11-12 19:00] VITALS: O2SAT 92
[2023-11-12] MEDS: QUEtiapine FUMARATE **XR** 200MG TABLET PO SCH (21:32)
[2023-11-12] MEDS: RAMELTEON 8 MG TAB (ROZEREM) PO SCH (21:32)
[2023-11-12] MEDS: ACETAMINOPHEN TAB 650MG DOSE (2X325MG) PO PRN (21:33)
[2023-11-12] MEDS: FIORICET TAB PO PRN (21:33)
[2023-11-13 00:45] VITALS: O2SAT 93
[2023-11-13 00:52] VITALS: O2SAT 93
[2023-11-13] MEDS: IPRATROPIUM 0.5MG/ALBUTEROL 2.5MG INH SOL UD 3ML (DUONEB) NEB SCH ×4 (01:53→18:54)
[2023-11-13 05:28] VITALS: BP 118/72; TEMP 97.3; O2SAT 92
[2023-11-13] MEDS: LEVOTHYROXINE 50MCG TABLET (0.05MG) PO SCH (05:48)
[2023-11-13] MEDS: INSULIN LISPRO (NovoLOG) PER UNIT SC SCH ×4 (07:30→20:45)
[2023-11-13] MEDS: SYMBICORT 160/4.5MCG INHALER 6GM INH SCH ×2 (08:01→18:54)
[2023-11-13] MEDS: TIOTROPIUM INHALER/CAPSULE (SPIRIVA) INH SCH (08:02)
[2023-11-13] MEDS: ANALGESIC BALM CRM 3OZ TOP SCH ×2 (09:00→20:45)
[2023-11-13] MEDS: MAGNESIUM OXIDE 400MG TAB (MAG-OX) PO SCH ×3 (09:31→20:42)
[2023-11-13] MEDS: NORCO, ANEXSIA 5/325MG TABLET (HYDROcodone/ACETAMINOPHEN) PO PRN ×2 (09:31→17:33)
[2023-11-13] MEDS: FAMOTIDINE 20 MG TAB PO SCH (09:31)
[2023-11-13] MEDS: PANTOPRAZOLE 40MG TAB (PROTONIX) PO SCH (09:32)
[2023-11-13] MEDS: DIGOXIN 0.125 MG TAB PO SCH (09:32)
[2023-11-13] MEDS: METOPROLOL TART 50 MG TAB PO SCH ×2 (09:32→20:43)
[2023-11-13] MEDS: SERTRALINE HCL 25 MG TABLET PO SCH (09:32)
[2023-11-13] MEDS: ATORVASTATIN 20 MG TAB PO SCH (09:32)
[2023-11-13] MEDS: APIXABAN 5 MG TAB (ELIQUIS) PO SCH ×2 (09:32→20:42)
[2023-11-13] MEDS: DIMETHICONE 2% OINTMENT(VANICREAM) 70GM TUBE TOP SCH ×2 (09:33→20:46)
[2023-11-13] MEDS: LACTIC ACID 12% LOTION 225 GM BTL TOP SCH ×2 (09:33→20:46)
[2023-11-13] MEDS: RAMELTEON 8 MG TAB (ROZEREM) PO SCH (20:41)
[2023-11-13] MEDS: QUEtiapine FUMARATE **XR** 200MG TABLET PO SCH (20:41)
[2023-11-13] MEDS: FIORICET TAB PO PRN (20:57)
[2023-11-13] MEDS: GABAPENTIN 100 MG CAP PO PRN (23:15)
[2023-11-14] MEDS: IPRATROPIUM 0.5MG/ALBUTEROL 2.5MG INH SOL UD 3ML (DUONEB) NEB SCH ×4 (01:17→20:44)
[2023-11-14] MEDS: NORCO, ANEXSIA 5/325MG TABLET (HYDROcodone/ACETAMINOPHEN) PO PRN ×3 (01:36→20:18)
[2023-11-14] MEDS: LEVOTHYROXINE 50MCG TABLET (0.05MG) PO SCH (05:27)
[2023-11-14 05:40] VITALS: BP 115/63; TEMP 98.2; O2SAT 91
[2023-11-14 06:00] VITALS: BP 111/78; TEMP 99; O2SAT 96
[2023-11-14] MEDS: INSULIN LISPRO (NovoLOG) PER UNIT SC SCH ×4 (07:10→20:18)
[2023-11-14] MEDS: TIOTROPIUM INHALER/CAPSULE (SPIRIVA) INH SCH (07:26)
[2023-11-14] MEDS: SYMBICORT 160/4.5MCG INHALER 6GM INH SCH ×2 (07:26→20:44)
[2023-11-14] MEDS: APIXABAN 5 MG TAB (ELIQUIS) PO SCH ×2 (08:36→20:16)
[2023-11-14] MEDS: PANTOPRAZOLE 40MG TAB (PROTONIX) PO SCH (08:36)
[2023-11-14] MEDS: FAMOTIDINE 20 MG TAB PO SCH (08:36)
[2023-11-14] MEDS: SERTRALINE HCL 25 MG TABLET PO SCH (08:36)
[2023-11-14] MEDS: METOPROLOL TART 50 MG TAB PO SCH ×2 (08:37→20:16)
[2023-11-14] MEDS: MAGNESIUM OXIDE 400MG TAB (MAG-OX) PO SCH ×3 (08:37→20:15)
[2023-11-14] MEDS: ATORVASTATIN 20 MG TAB PO SCH (08:37)
[2023-11-14] MEDS: DIGOXIN 0.125 MG TAB PO SCH (08:37)
[2023-11-14] MEDS: LACTIC ACID 12% LOTION 225 GM BTL TOP SCH ×2 (08:38→20:19)
[2023-11-14] MEDS: DIMETHICONE 2% OINTMENT(VANICREAM) 70GM TUBE TOP SCH ×2 (08:38→20:19)
[2023-11-14] MEDS: ANALGESIC BALM CRM 3OZ TOP SCH ×2 (08:38→20:18)
[2023-11-14] MEDS: FIORICET TAB PO PRN (16:58)
[2023-11-14] MEDS: GABAPENTIN 100 MG CAP PO PRN (16:58)
[2023-11-14] MEDS: QUEtiapine FUMARATE **XR** 200MG TABLET PO SCH (20:15)
[2023-11-14] MEDS: RAMELTEON 8 MG TAB (ROZEREM) PO SCH (20:15)
[2023-11-14] MEDS ORDERED: NORCO, ANEXSIA 5/325MG TABLET (HYDROcodone/ACETAMINOPHEN) PO PRN (22:30)
[2023-11-14] MEDS ORDERED: KETOROLAC 30 MG/ML 1ML VIAL IV PRN (22:30)
[2023-11-15] MEDS: IPRATROPIUM 0.5MG/ALBUTEROL 2.5MG INH SOL UD 3ML (DUONEB) NEB SCH ×4 (01:05→20:22)
[2023-11-15] MEDS: LEVOTHYROXINE 50MCG TABLET (0.05MG) PO SCH (04:27)
[2023-11-15] MEDS: GABAPENTIN 100 MG CAP PO PRN ×3 (04:27→20:33)
[2023-11-15] MEDS: NORCO, ANEXSIA 5/325MG TABLET (HYDROcodone/ACETAMINOPHEN) PO PRN ×3 (04:27→20:34)
[2023-11-15 06:00] VITALS: BP 115/63; TEMP 98.6; O2SAT 90
[2023-11-15 08:28] LABS: BLOOD UREA NITROGEN 22 MG/DL (9-23); CALCIUM LEVEL 8.5 MG/DL (8.3-10.6); CARBON DIOXIDE LEVEL 36 MMOL/L (20-31); CHLORIDE LEVEL 103 MMOL/L (98-107); CREATININE FOR GFR 0.69 MG/DL (0.55-1.30); GLOMERULAR FILTRATION RATE > 60.0 (>45); GLUCOSE, FASTING 106 MG/DL (74-106); POTASSIUM SERUM 3.9 MMOL/L (3.5-5.1); SODIUM LEVEL 143 MMOL/L (136-145)
[2023-11-15] MEDS ORDERED: BUMETANIDE 1 MG TAB PO SCH (09:00)
[2023-11-15] MEDS: ANALGESIC BALM CRM 3OZ TOP SCH ×2 (09:00→20:32)
[2023-11-15 09:28] LABS: HEMATOCRIT 36.1 % (36.0-47.0); HEMOGLOBIN 10.5 g/dl (12.0-15.5); MEAN CORPUSCULAR HEMOGLOBIN 27.1 pg (27.0-33.0); MEAN CORPUSCULAR HGB CONC 29.1 g/dl (32.0-36.5); MEAN CORPUSCULAR VOLUME 93.3 fl (80.0-96.0); PLATELET COUNT, AUTOMATED 177 10^3/uL (150-450); RED BLOOD COUNT 3.87 10^6/uL (4.00-5.40); WHITE BLOOD COUNT 4.6 10^3/uL (4.0-10.0)
[2023-11-15] MEDS: ATORVASTATIN 20 MG TAB PO SCH (10:45)
[2023-11-15] MEDS: FAMOTIDINE 20 MG TAB PO SCH (10:47)
[2023-11-15] MEDS: MAGNESIUM OXIDE 400MG TAB (MAG-OX) PO SCH ×3 (10:47→20:31)
[2023-11-15] MEDS: INSULIN LISPRO (NovoLOG) PER UNIT SC SCH ×4 (10:47→20:31)
[2023-11-15] MEDS: PANTOPRAZOLE 40MG TAB (PROTONIX) PO SCH (10:47)
[2023-11-15] MEDS: LACTIC ACID 12% LOTION 225 GM BTL TOP SCH ×2 (10:48→20:32)
[2023-11-15] MEDS: SERTRALINE HCL 25 MG TABLET PO SCH (10:48)
[2023-11-15] MEDS: DIGOXIN 0.125 MG TAB PO SCH (10:49)
[2023-11-15] MEDS: METOPROLOL TART 50 MG TAB PO SCH ×2 (10:51→20:31)
[2023-11-15] MEDS: DIMETHICONE 2% OINTMENT(VANICREAM) 70GM TUBE TOP SCH ×2 (10:54→20:32)
[2023-11-15] MEDS: ACETAMINOPHEN TAB 650MG DOSE (2X325MG) PO PRN ×2 (10:54→20:34)
[2023-11-15] MEDS: APIXABAN 5 MG TAB (ELIQUIS) PO SCH ×2 (10:59→20:31)
[2023-11-15] MEDS: TIOTROPIUM INHALER/CAPSULE (SPIRIVA) INH SCH (13:00)
[2023-11-15] MEDS: SYMBICORT 160/4.5MCG INHALER 6GM INH SCH ×2 (13:00→20:22)
[2023-11-15 16:51] VITALS: O2SAT 95
[2023-11-15 16:52] VITALS: O2SAT 93
[2023-11-15 16:57] VITALS: O2SAT 92
[2023-11-15] MEDS: RAMELTEON 8 MG TAB (ROZEREM) PO SCH (20:31)
[2023-11-15] MEDS: QUEtiapine FUMARATE **XR** 200MG TABLET PO SCH (20:31)
[2023-11-16] MEDS: IPRATROPIUM 0.5MG/ALBUTEROL 2.5MG INH SOL UD 3ML (DUONEB) NEB SCH ×2 (01:41→07:37)
[2023-11-16] MEDS: GABAPENTIN 100 MG CAP PO PRN (04:46)
[2023-11-16] MEDS: LEVOTHYROXINE 50MCG TABLET (0.05MG) PO SCH (04:46)
[2023-11-16] MEDS: NORCO, ANEXSIA 5/325MG TABLET (HYDROcodone/ACETAMINOPHEN) PO PRN (04:46)
[2023-11-16 05:00] VITALS: BP 134/85; TEMP 98.1; O2SAT 93
[2023-11-16 05:46] VITALS: O2SAT 92
[2023-11-16] MEDS: INSULIN LISPRO (NovoLOG) PER UNIT SC SCH (07:26)
[2023-11-16] MEDS: TIOTROPIUM INHALER/CAPSULE (SPIRIVA) INH SCH (07:37)
[2023-11-16] MEDS: SYMBICORT 160/4.5MCG INHALER 6GM INH SCH (07:37)
[2023-11-16] MEDS: PANTOPRAZOLE 40MG TAB (PROTONIX) PO SCH (08:51)
[2023-11-16] MEDS: FAMOTIDINE 20 MG TAB PO SCH (08:51)
[2023-11-16] MEDS: SERTRALINE HCL 25 MG TABLET PO SCH (08:52)
[2023-11-16] MEDS: MAGNESIUM OXIDE 400MG TAB (MAG-OX) PO SCH (08:52)
[2023-11-16] MEDS: ATORVASTATIN 20 MG TAB PO SCH (08:52)
[2023-11-16] MEDS: DIGOXIN 0.125 MG TAB PO SCH (08:52)
[2023-11-16] MEDS: APIXABAN 5 MG TAB (ELIQUIS) PO SCH (08:52)
[2023-11-16 08:59] VITALS: BP 154/86
[2023-11-16] MEDS: FIORICET TAB PO PRN (08:59)
[2023-11-16] MEDS: METOPROLOL TART 50 MG TAB PO SCH (08:59)
[2023-11-16] MEDS: ANALGESIC BALM CRM 3OZ TOP SCH (09:00)
[2023-11-16] MEDS: LACTIC ACID 12% LOTION 225 GM BTL TOP SCH (09:00)
[2023-11-16] MEDS: DIMETHICONE 2% OINTMENT(VANICREAM) 70GM TUBE TOP SCH (09:00)
[2023-11-16] MEDS ORDERED: BUME1TAB3 PO (09:02)
[2023-11-16] MEDS ORDERED: AMMO12LO TOP (09:02)
[2023-11-16] MEDS ORDERED: MAGN400T2 PO (09:02)
[2023-11-16] MEDS ORDERED: GABA-1171 PO (09:02)
[2023-11-16] MEDS ORDERED: LEVO50TA5 PO (09:02)
[2023-11-17] MEDS ORDERED: BUMETANIDE 1 MG TAB PO SCH (09:00)
== END 2023-11-16 11:05 | disposition other institution (70) | DRG 812 ==
LOC: EDBD 21:49 → M ED 21:49 → M ED INP 10-16 03:15 → M ICU 10-16 04:26 → M PCU 10-17 15:37 → M MSPAV 10-19 10:02
PROVIDERS: ADMIT Internal Medicine; ATTEND Student in an Organized Health Care Education/Training Program
DX: T40.2X1A Poisoning by other opioids, accidental (unintentional), initial encounter (principal); U07.1 COVID-19; J96.21 Acute and chronic respiratory failure with hypoxia; G93.41 Metabolic encephalopathy; I50.9 Heart failure, unspecified; I27.20 Pulmonary hypertension, unspecified; J96.02 Acute respiratory failure with hypercapnia; I27.81 Cor pulmonale (chronic); J44.1 Chronic obstructive pulmonary disease with (acute) exacerbation; E66.2 Morbid (severe) obesity with alveolar hypoventilation; I48.91 Unspecified atrial fibrillation; E87.3 Alkalosis; F17.210 Nicotine dependence, cigarettes, uncomplicated; B96.20 Unspecified Escherichia coli [E. coli] as the cause of diseases classified elsewhere; G89.4 Chronic pain syndrome; M10.9 Gout, unspecified; B96.1 Klebsiella pneumoniae [K. pneumoniae] as the cause of diseases classified elsewhere; F32.A Depression, unspecified; E03.9 Hypothyroidism, unspecified; S30.1XXD Contusion of abdominal wall, subsequent encounter; N39.0 Urinary tract infection, site not specified; E11.9 Type 2 diabetes mellitus without complications; E78.5 Hyperlipidemia, unspecified; K21.9 Gastro-esophageal reflux disease without esophagitis; G47.00 Insomnia, unspecified; Z79.890 Hormone replacement therapy; Z79.01 Long term (current) use of anticoagulants; Z79.899 Other long term (current) drug therapy; Z99.81 Dependence on supplemental oxygen; Z20.822 Contact with and (suspected) exposure to COVID-19; Z90.49 Acquired absence of other specified parts of digestive tract; Z90.79 Acquired absence of other genital organ(s)